=== PATIENT | male | born 1965 | race Caucasian/White ===

== ENCOUNTER 2023-03-10 09:49 | Outpatient (OUT) | payer MEDICARE, SELFPAY ==
--- NOTE | 2023-03-10 09:54 | CT_ITS ---
[address] [address] Patient Name: DORIS PARKER MRN: [id number] date: 1965 Sex: M Assigned Patient Location: CT Current Patient Location: LAB Accession/Order Number: [id number] Exam Date: 03/10/2023 10:10 Report Date: 03/11/2023 07:57 At the request of: RUBÉN ORDONEZ Procedure: CT chest high res EXAMINATION: CT chest high res HISTORY: Pulmonary Fibrosis J84.10 COMPARISON: CTA chest, abdomen, pelvis 10/02/2021 TECHNIQUE: Axial images were obtained at 10 mm intervals during inspiration and expiration in the supine and prone positions. No IV contrast given. Dose reduction techniques were achieved by using automated exposure control and/or adjustment of mA and/or kV according to patient size and/or use of iterative reconstruction technique. FINDINGS: LUNGS: Mild bilateral atelectasis which clears with change between prone and supine positioning. No appreciable air trapping, fibrosis, or significant chronic interstitial changes. No suspicious nodules. PLEURA: No mass, effusion, or pneumothorax. CASSIDY: No mass or adenopathy. MEDIASTINUM: No mass or adenopathy. CHEST WALL: No mass or axillary adenopathy LIMITED ABDOMEN: 6.5 cm benign-appearing right renal cysts, increased in size since prior study. Limited images of the upper abdomen. OTHER: Negative. IMPRESSION: 1. No significant chronic interstitial changes and fibrosis. 2. No acute infiltrates or suspicious nodules. Electronically authenticated by: MASON NESBITT Date: 03/11/2023 07:57
== END 2023-03-10 09:50 ==
LOC: CT 09:50
PROVIDERS: PCP Family Medicine; Visit Provider Internal Medicine
DX: J84.10 Pulmonary fibrosis, unspecified (principal)
CPT/HCPCS: 71250

== ENCOUNTER 2023-03-10 10:42 | Outpatient (OUT) | payer MEDICARE, OTHER, SELFPAY ==
[2023-05-22 15:34] LABS: INR 3.81; Prothrombin Time 37.4 sec (9.0-11.6)
== END 2023-03-10 10:43 ==
PROVIDERS: PCP Family Medicine; Visit Provider Family Medicine
DX: I82.91 Chronic embolism and thrombosis of unspecified vein (principal)
CPT/HCPCS: 36415; 85610

== ENCOUNTER 2023-03-12 15:25 | Outpatient (OUT) | payer MEDICARE, SELFPAY ==
--- NOTE | 2023-03-12 15:34 | XR_ITS ---
The [address] [address] Patient Name: DORIS PARKER MRN: [id number] date: 1965 Sex: M Assigned Patient Location: LAB Current Patient Location: LAB Accession/Order Number: [id number] Exam Date: 03/12/2023 15:40 Report Date: 03/12/2023 16:02 At the request of: DORIS WOODS Procedure: XR abdomen 1V EXAMINATION: XR abdomen 1V HISTORY: Kidney stones N20.0 COMPARISON: XR KUB 01/21/2023 FINDINGS: KIDNEY/URETER - RIGHT: No visible renal or ureteral calcifications. KIDNEY/URETER - LEFT: No visible renal or ureteral calcifications. PELVIS: No visible ureteral stones. Stable pelvic calcifications compatible with phleboliths. BOWEL: No abnormal dilation or deviation. BONES: No acute abnormality. OTHER: Filter within the IVC. IMPRESSION: 1. No appreciable urinary tract calculi. Electronically authenticated by: MASON NESBITT Date: 03/12/2023 16:02
== END 2023-03-12 15:26 ==
PROVIDERS: PCP Family Medicine; Visit Provider Urology
DX: N20.0 Calculus of kidney (principal)
CPT/HCPCS: 74018

== ENCOUNTER 2023-03-14 07:00 | Outpatient (REF) | payer MEDICARE, SELFPAY ==
[2023-03-14 11:55] LABS: Calcium 9.1 mg/dL (8.5-10.1); Carbon Dioxide 26.1 mmol/L (21.0-32.0); Chloride 106 mmol/L (98-107); Estimated GFR (African America >60 (>=60); Estimated GFR (Non-African Ame 52 (>=60); Potassium 4.9 mmol/L (3.5-5.1); Sodium 140 mmol/L (136-145)
[2023-03-14 14:56] LABS: Calcium Urine Random 15.2 mg/dL (5.1-21.0); Creatinine Urine Random 119.65 mg/dL (20.00-300.00); Sodium Urine Random 201 mmol/L (30-90)
[2023-03-14 14:58] LABS: Calcium 24 Hour Urine 239.4 mg/24hr (100.0-300.0); Sodium 24 Hour Urine 317 mmol/24h (40-220); Total Volume 24 Hour Urine 1575 mL/24hr
[2023-03-15 08:11] LABS: Magnesium, U 5.8 mg/dL (Not Estab.); Magnesium,Urine 24hr 91.4 mg/24 hr (12.0-293.0); Phosphorus, Urine 56.9 mg/dL (Not Estab.); Phosphorus,Urine 24h 896 mg/24 hr (390-1425); Uric Acid, Urine 58.2 mg/dL (Not Estab.); Uric Acid,Urine 24hr 916.7 mg/24 hr (197.2-1078.7)
[2023-03-15 14:11] LABS: PTH, Intact 26 pg/mL (15-65)
[2023-03-18 17:08] LABS: Citric Acid, U, 24hr 203 mg/24 hr (320-1240); Citric Acid, Urine 129 mg/L (Undefined)
[2023-03-19 17:07] LABS: Oxalates, Urine 11 mg/L (Undefined); Oxalates, Urine 24hr 17 mg/24 hr (7-44)
== END 2023-03-14 07:01 ==
LOC: LAB 07:00
PROVIDERS: PCP Family Medicine; Visit Provider Urology
DX: N20.0 Calculus of kidney (principal)
CPT/HCPCS: 36415; 82310; 82340; 82374; 82435; 82507; 82565; 82570; 83735; 83945; 83970; 84105; 84132; 84295; 84300; 84520; 84550; 84560

== ENCOUNTER 2023-05-22 14:41 | Outpatient (OUT) | payer MEDICARE, SELFPAY | END 2023-05-22 14:42 | disposition home or self-care (01) | LOC: LAB 14:44 | PROVIDERS: PCP Family Medicine; Visit Provider Family Medicine | DX: I82.91 Chronic embolism and thrombosis of unspecified vein (principal) | CPT/HCPCS: 36415; 85610 ==

== ENCOUNTER 2023-07-24 11:35 | Outpatient (OUT) | payer OTHER, SELFPAY ==
[2023-07-24 12:02] LABS: INR 2.05; Prothrombin Time 20.9 sec (9.0-11.6)
== END 2023-07-24 11:36 | disposition home or self-care (01) ==
PROVIDERS: PCP Family Medicine; Visit Provider Family Medicine
DX: I82.91 Chronic embolism and thrombosis of unspecified vein (principal)
CPT/HCPCS: 36415; 85610

== ENCOUNTER 2023-09-10 07:38 | Outpatient (OUT) | payer MEDICARE, SELFPAY | END 2023-09-10 07:39 | disposition home or self-care (01) | LOC: PST 07:38 | PROVIDERS: PCP Family Medicine; Visit Provider Surgery | DX: Z01.818 Encounter for other preprocedural examination (principal); K62.5 Hemorrhage of anus and rectum ==

== ENCOUNTER 2023-09-17 06:26 | Day surgery (SDC) | payer MEDICARE, SELFPAY ==
--- NOTE | 2023-09-17 | OP_ITS ---
OPERATION DATE: 09/17/2023 PREOPERATIVE DIAGNOSIS: Intermittent rectal bleeding. POSTOPERATIVE DIAGNOSIS: Prominent rectal veins and internal/external hemorrhoids. No active bleeding. PROCEDURE: Colonoscopy to cecum. SURGEON: Jamil Carrillo M.D. ANESTHESIA: Monitored anesthesia care. ESTIMATED BLOOD LOSS: Zero. INDICATIONS AND CONSENT: Patient is a 58-year-old male presents for intermittent rectal bleeding. He is chronically anticoagulated. Indications, risks, benefits, alternatives of proceeding with colonoscopy were explained extensively to the patient, including the risks of bleeding, colon perforation or anesthetic complications. All of his questions were answered. Informed consent was obtained. PROCEDURE: Patient brought to the operating room, placed in the left lateral decubitus position. Monitored anesthesia care was provided. Rectal exam was performed which revealed some small internal/external hemorrhoids. No masses or blood. The scope was inserted into the anal canal. Under direct visualization was advanced. With the aid of abdominal compression, it was advanced to the cecum where cecal markings were clearly identified. There was noted to be a good prep. Upon withdrawal of the scope, mucosal surfaces were carefully examined. There were no mass lesions or polyps. No inflammatory changes or ulcerations. No significant diverticulosis. Within the rectum, there were noted to be prominent rectal veins as well as some small internal/external hemorrhoids. No active bleeding or old blood. The scope was then withdrawn. Patient tolerated procedure well, was sent to recovery room in good condition. Follow up colonoscopy should be in 10 years for screening. CC: Delon Simmons M.D. STEFANIA
--- OUTSIDE RECORDS SUMMARY | 2023-09-17 06:29 | XMS_ITS | CCD ---
Author Name Unknown Address [address] [place] [address] Organization [facility] Care Team Providers Care Chief Steward/Stewardess Name Role Phone EFREM MATSON Admitting Unavailable EFREM MATSON Attending Unavailable NOE CABALLERO Primary Care Unavailable Noe Caballero Primary Care Physician [phone] DAGOBERTO CORMIER Admitting Unavailable CLINTON CORMIERAB Davey Attending Unavailable NOE CABALLERO Primary Care Unavailable NOE CABALLERO Referring Unavailable HOY ., DR LIU Admitting Unavailable HOY ., DR LIU Attending Unavailable HOY ., DR LIU Referring Unavailable HOY ., DR LIU Primary Care Unavailable HOY ., DR LIU Consulting Unavailable HOY ., DR LIU Admitting Unavailable HOY ., DR LIU Attending Unavailable HOY ., DR LIU Primary Care Unavailable HOY ., DR LIU Consulting Unavailable [place], DR EFREM Ventura Consulting Unavailable HOY ., DR LIU Admitting Unavailable HOY ., DR LIU Attending Unavailable HOY ., DR LIU Primary Care Unavailable HOY ., DR LIU Consulting Unavailable HOY ., DR LIU Admitting Unavailable HOY ., DR LIU Attending Unavailable HOY ., DR LIU Primary Care Unavailable HOY ., DR LIU Consulting Unavailable HOY ., DR LIU Admitting Unavailable HOY ., DR LIU Attending Unavailable HOY ., DR LIU Primary Care Unavailable HOY ., DR LIU Consulting Unavailable HOY ., DR LIU Admitting Unavailable HOY ., DR LIU Attending Unavailable HOY ., DR LIU Primary Care Unavailable HOY ., DR LIU Consulting Unavailable HOY ., DR LIU Admitting Unavailable HOY ., DR LIU Attending Unavailable HOY ., DR LIU Consulting Unavailable HOY ., DR LIU Primary Care Unavailable PERLITA, SHANIA Admitting Unavailable PERLITA, SHANIA Attending Unavailable HOY ., DR LIU Primary Care Unavailable PERLITA, SHANIA Consulting Unavailable ELIJAH, EDGAR Admitting Unavailable ELIJAH, EDGAR Attending Unavailable HOY ., DR LIU Primary Care Unavailable WEST, DR EFREM Ventura Consulting Unavailable ELIJAH, EDGAR Consulting Unavailable ELIJAH, EDGAR Admitting Unavailable ELIJAH, EDGAR Attending Unavailable HOY ., DR LIU Primary Care Unavailable WEST, DR EFREM Ventura Consulting Unavailable IRVING, WINCHA Consulting Unavailable ELIJAH, EDGAR Consulting Unavailable ELIJAH, EDGAR Admitting Unavailable ELIJAH, EDGAR Attending Unavailable HOY ., DR LIU Primary Care Unavailable ELIJAH, EDGAR Consulting Unavailable ELIJAH, EDGAR Admitting Unavailable ELIJAH, EDGAR Attending Unavailable HOY ., DR LIU Primary Care Unavailable [facility], DR MASON Braun Consulting Unavailable ELIJAH, EDGAR Consulting Unavailable HOY ., DR LIU Admitting Unavailable HOY ., DR LIU Attending Unavailable HOY ., DR LIU Primary Care Unavailable HOY ., DR LIU Consulting Unavailable HOY ., DR LIU Admmak Unavailable HOY ., DR LIU Attending Unavailable HOY ., DR LIU Primary Care Unavailable HOY ., DR LIU Admmak Unavailable HOY ., DR LIU Attending Unavailable HOY ., DR LIU Primary Care Unavailable HOY ., DR LIU Consulting Unavailable HOY ., DR LIU Admmak Unavailable HOY ., DR LIU Attending Unavailable HOY ., DR LIU Primary Care Unavailable HOY ., DR LIU Consulting Unavailable PERLITA, SHANIA Admitting Unavailable PERLITA, SHANIA Attending Unavailable HOY ., DR LIU Primary Care Unavailable PERLITA, SHANIA Consulting Unavailable HOY ., DR LIU Admitting Unavailable HOY ., DR LIU Attending Unavailable HOY ., DR LIU Primary Care Unavailable HOY ., DR LIU Admmak Unavailable HOY ., DR LIU Attending Unavailable HOY ., DR LIU Primary Care Unavailable HOY ., DR LIU Consulting Unavailable HOY ., DR LIU Admmak Unavailable HOY ., DR LIU Attending Unavailable HOY ., DR LIU Primary Care Unavailable HOY ., DR LIU Consulting Unavailable PERLITA, SHANIA Admitting Unavailable PERLITA, SHANIA Attending Unavailable HOY ., DR LIU Primary Care Unavailable PERLITA, SHANIA Consulting Unavailable ALFIE SLAUGHTER Admitting Unavailable ALFIE SLAUGHTER Attending Unavailable NOE CABALLERO Primary Care Unavailable SHANIA BHAT Attending Unavailable DAGOBERTO CORMIER Attending Unavailable Jamil DE LUNA Attending Unavailable Jamil DE LUNA Attending Unavailable Noe Caballero Referring Unavailable ALEJANDRO DANIELLE Attending Unavailab ALEJANDRO Funez Attending Unavailab ALEJANDRO Funez Attending Unavailab ALEJANDRO Funez Admitting Unavailab Noe Gamino Referring Unavailable Jamil DE LUNA Attending Unavailable Noe Caballero MD Primary Care Provider [phone] Noe Caballero MD Unavailable Allergies Allergy Classification Reported Allergen(s) Allergy Type Date of Onset Reaction(s) Facility (7 sources) Acetaminophen / HYDROcodone; Translations: [acetaminophen-hy drocodone] Drug Allergy Hallucinations (finding), Migraine (disorder) [facility] (11 sources) Penicillins; Translations: [penicillins] Drug allergy 4 Weal (disorder) [facility] (7 sources) Sulfonamides (Antibiotic); Translations: [sulfa drugs] Drug allergy Weal (disorder) [facility] (1 source) Acetaminophen / HYDROcodone Drug Allergy [facility] (2 sources) Sulfonamides (Antibiotic) Drug allergy (disorder) 5 [facility] (1 source) Penicillin; Translations: [penicillin] Drug Allergy [facility] Medications Current Medications Medication Drug Class(es) Dates Sig (Normalized) Sig (Original) acetaminophen 325 mg / oxyCODONE hydrochloride 5 mg oral tablet (2 sources) Opioid Agonist Start: 01-17-2022 take 1 tablet by mouth every six hours Percocet 5 mg-325 mg oral tablet 1 tab(s), Oral, q6hr Pain 8-10, 20 tab(s), Refill(s) 0, [facility] 178, cm, 01/11/22 13:03:00 EDT, Height/Length Dosing, 106, kg, 01/11/22 13:03:00 EDT, Weight Dosing Start Date: 01/17/22 Status: Ordered Albuterol (1 source) beta2-Adrenergic Agonist Start: 08-15-2023 take 2 puff(s) by inhalation every four hours Albuterol (Eqv-ProAir HFA) 2 puff(s), Inhalation, q4hr Shortness of breath or wheezing, Refill(s) 0 Start Date: 08/15/23 Status: Ordered amLODIPine 5 mg oral tablet (2 sources) Dihydropyridine Calcium Channel Apolinar Start: 07-03-2022 take 1 tablet by mouth once daily amLODIPine 5 mg Tab 5 mg = 1 tab(s), Oral, Daily, Refills(s) 0 Start Date: 07/03/22 Status: Ordered ascorbic acid 500 mg oral tablet (4 sources) Vitamin C Start: 08-29-2020 take 500 mg by mouth once daily Vitamin C 500 mg, Oral, Daily, Refills(s) 0, Prophylaxis Start Date: 08/29/20 Status: Ordered atorvastatin 20 mg oral tablet (2 sources) HMG-CoA Reductase Inhibitor Start: 02-26-2023 take 1 tablet by mouth once daily atorvastatin 20 mg Tab 20 mg = 1 tab(s), Oral, Daily, Refills(s) 0 Start Date: 02/26/23 Status: Ordered Start: 05-25-2019 take 1 tablet by geri th once daily atorvastatin 40 mg Tab 40 mg = 1 tab(s), Oral, Daily, High cholesterol Start Date: 05/25/19 Status: Ordered celecoxib 200 mg oral capsule (6 sources) Nonsteroidal Anti-inflammatory Drug Start: 01-11-2022 take 1 capsule by mouth once daily CeleBREX 200 mg Cap 200 mg = 1 cap(s), Oral, Daily, Other (see comment) Start Date: 01/11/22 Status: Ordered take 1 capsule by mouth twice da miriam celecoxib (CELEBREX) 200 mg capsule Take 200 mg by mouth 2 times daily. 0 Active Comment on above: Take 200 mg by mouth 2 times daily. ciprofloxacin 500 mg oral tablet (1 source) Quinolone Antimicrobial Start: 01-17-2022 End: 04-24-2022 take 1 tablet by mouth every twelve hours Cipro 500 mg Tab 500 mg = 1 tab(s), Oral, q12hr, X 3 day(s), # 6 tab(s), Refills(s) 0, Pharmacy: [facility] [address], 178, cm, 01/11/22 13:03:00 EDT, Height/Length Dosing, 106, kg, 01/11/22 13:03:00 EDT, Weight Dosing Start Date: 01/17/22 Stop Date: 01/20/22 Status: Ordered 1 ml enoxaparin sodium 100 mg/ml prefilled syringe (1 source) Low Molecular Weight Heparin Start: 09-13-2021 inject 100 mg by subcutaneous injection every twelve hours enoxaparin 100 mg/mL SubQ Terra 100 mg, SubCutaneous, q12hr, start when stop coumadin for surgery, Refills(s) 0 Start Date: 09/13/21 Status: Ordered enoxaparin 100 mg/mL SubQ Terra (3 sources) Start: 09-13-2021 inject 100 mg by subcutaneous injection every twelve hours enoxaparin 100 mg/mL SubQ Terra 100 mg, SubCutaneous, q12hr, start when stop coumadin for surgery, Refills(s) 0 Start Date: 09/13/21 Status: Ordered HYDROcodone (1 source) Opioid Agonist Start: 09-13-2021 hydrocodone Oral, q12hr, PRN Breakthrough Pain, Refills(s) 0 Start Date: 09/13/21 Status: Ordered lisinopril 30 mg oral tablet (7 sources) Angiotensin Converting Enzyme Inhibitor Start: 03-12-2023 take 1 tablet by mouth once daily lisinopril 30 mg Tab 30 mg = 1 tab(s), Oral, Daily, Refills(s) 0 Start Date: 03/12/23 Status: Ordered Start: 09-13-2021 take 1 tablet by geri th once daily lisinopril 30 mg Tab 30 mg = 1 tab(s), Oral, Daily, Refills(s) 0, High blood pressure Start Date: 09/13/21 Status: Ordered Comment on above: Take 30 mg by mouth daily. metFORMIN hydrochloride 500 mg oral tablet (6 sources) Biguanide Start: 05-25-2019 take 1 tablet by mouth once daily metformin 500 mg Tab 500 mg = 1 tab(s), Oral, Daily, Blood glucose Start Date: 05/25/19 Status: Ordered take 1 tablet by geri th twice daily at mealtime metFORMIN (GLUCOPHAGE) 500 mg tablet Alexandr e 500 mg by mouth 2 times daily with meals. 0 Active Comment on above: Take 500 mg by mouth 2 times daily with meals. metoprolol tartrate 100 mg oral tablet (7 sources) beta-Adrenergic Apolinar Start: 02-26-2023 take 1 tablet by mouth twice daily metoprolol tartrate 100 mg Tab 100 mg = 1 tab(s), Oral, BID, Refills(s) 0 Start Date: 02/26/23 Status: Ordered Start: 09-13-2021 take 1 tablet by geri th twice daily metoprolol 50 mg ER Tab 50 mg = 1 tab(s), Oral, BID, High blood pressure Start Date: 09/13/21 Status: Ordered take 1 tablet by geri th once daily metoprolol succinate ER (TOPROL XL) 50 mg 24 hr tablet Take 50 mg by mouth daily. 0 Active Comment on above: Take 50 mg by mouth daily. multivitamin with iron (1 source) Start: 08-15-2023 take 1 tablet by mouth once daily multivitamin with iron 1 tab(s), Oral, Daily, Refill(s) 0 Start Date: 08/15/23 Status: Ordered omeprazole 20 mg delayed release oral capsule (4 sources) Proton Pump Inhibitor Start: 09-13-2021 omeprazole 20 mg Cap-DR 40 mg = 2 cap(s), Oral, Daily, Control of stomach acid Start Date: 09/13/21 Status: Ordered Comment on above: Take 20 mg by mouth daily. omeprazole 20 mg Cap-DR (3 sources) Start: 09-13-2021 omeprazole 20 mg Cap-DR 20 mg = 1 cap(s), Oral, Daily, Control of stomach acid Start Date: 09/13/21 Status: Ordered Start: 09-13-2021 omeprazole 20 mg Cap-DR 20 mg = 1 cap(s), Oral, BID, Control of stomach acid Start Date: 09/13/21 Status: Ordered rosuvastatin calcium 40 mg oral tablet (5 sources) HMG-CoA Reductase Inhibitor Start: 08-15-2023 take 1 tablet by mouth once daily at bedtime rosuvastatin 40 mg Tab 40 mg = 1 tab(s), Oral, Once a day (at bedtime), Refills(s) 0 Start Date: 08/15/23 Status: Ordered Start: 01-11-2022 take 1 tablet by geri th once daily rosuvastatin 10 mg Tab 10 mg = 1 tab(s), Oral, Daily, High cholesterol Start Date: 01/11/22 Status: Ordered Comment on above: Take 10 mg by mouth daily. SUMAtriptan 25 mg oral tablet (6 sources) Serotonin-1b and Serotonin-1d Receptor Agonist Start: 08-15-2023 take 1 tablet by mouth once Imitrex 25 mg Tab 25 mg = 1 tab(s), Oral, Once, Refills(s) 0 Start Date: 08/15/23 Status: Ordered Start: 08-29-2020 take 1 tablet by geri th every two hours as needed SUMAtriptan 100 mg Tab 100 mg = 1 tab(s), Oral, Once, PRN as needed for migraine headache, TAKE 1 TABLET BY MOUTH AT ONSET OF HEADACHE - MAY REPEAT IN 2 HOURS IF NEEDED, Migraine headache Start Date: 08/29/20 Status: Ordered take 1 tablet by geri th every two hours as needed SUMAtriptan (IMITREX) 25 mg tablet Take 25 mg by mouth every 2 hours as needed for Migraine. 0 Active Comment on above: Take 25 mg by mouth every 2 hours as needed for Migraine. Vitamin D3 5000 intl units oral capsule (5 sources) Start: 01-11-2022 take 1 capsule by mouth once daily at mealtime Vitamin D3 5000 intl units oral capsule 125 mcg = 1 cap(s), Oral, Daily, with food, Prophylaxis Start Date: 01/11/22 Status: Ordered warfarin sodium 4 mg oral tablet (12 sources) Vitamin K Antagonist Start: 01-11-2022 Coumadin 4 mg Tab 4 mg = 1 tab(s), Oral, As Directed, Refills(s) 0, Blood Thinner Start Date: 01/11/22 Status: Ordered Start: 12-25-2021 warfarin 4 mg Tab 4 mg = 1 tab(s), Oral Start Date: 12/25/21 Status: Ordered Start: 10-30-2021 warfarin 5 mg Tab 5 mg = 1 tab(s), Oral, Friday, Blood Thinner Start Date: 12/25/21 Status: Ordered Start: 05-25-2019 take 1 tablet by mouth once da miriam Coumadin 3 mg Tab 3 mg = 1 tab(s), Oral, Daily, Blood Thinner Start Date: 05/25/19 Status: Ordered Comment on above: Take 1 tab p.o. adela y Zinc (4 sources) Start: 08-29-2020 take 100 mg by mouth once daily Zinc 100 mg, Oral, Daily, Refills(s) 0, Prophylaxis Start Date: 08/29/20 Status: Ordered Completed/Discontinued Medications Medication Drug Class(es) Dates Sig (Normalized) Sig (Original) 24 hr venlafaxine 75 mg extended release oral capsule (7 sources) Serotonin and Norepinephrine Reuptake Inhibitor Start: 08-29-2020 take 1 capsule by mouth once daily venlafaxine 75 mg Cap-ER 75 mg = 1 cap(s), Oral, Daily, take 1 capsule by mouth once daily, Anxiety Start Date: 08/29/20 Status: Ordered Start: 08-29-2020 take 1 capsule by mo [facility] once daily venlafaxine 75 mg Cap-ER 75 mg = 1 cap(s), Oral, Daily, take 1 capsule by mouth once daily, Anxiety Start Date: 08/29/20 Status: [facility] ven[facility]ine (EFFEXOR) 75 mg tablet Take 75 mg by mouth 2 times daily. 0 Active Comment on above: Take 75 mg by mouth 2 times daily. Vitamin D 1000 intl units Tab (1 source) Start: 05-25-2019 take 1 tablet by mouth once daily Vitamin D 1000 intl units Tab 1,000 International_Unit = 1 tab(s), Oral, Daily, Prophylaxis Start Date: 05/25/19 Status: Ordered Problems Active Problems Problem Classification Problem Date Documented Da te Episodic/Chronic Abdominal pain (6 sources) Flank pain 06-26-2021 Episodic Anxiety disorders (12 sources) Anxiety; Translations: [Anxiety disorder] 05-25-2019 Chronic Calculus of urinary tract (20 sources) Kidney stone; Translations: [Calculus of kidney] Onset: 2 Episodic Coagulation and hemorrhagic disorders (5 sources) Antiphospholipid syndrome; Translations: [Antiphospholipid syndrome] Onset: 2 02-26-2023 Chronic Coronary atherosclerosis and other heart disease (16 sources) Coronary arteriosclerosis; Translations: [Atherosclerotic heart disease of enterprise coronary artery without angina pectoris] Onset: 2 07-19-2019 Chronic Diabetes mellitus with complications (3 sources) Type 2 diabetes mellitus with other specified complication; Translations: [TYPE 2 DM W/OTHER SPEC COMPLICATION] Onset: 3 Chronic Diabetes mellitus without complication (6 sources) Diabetes mellitus 05-25-2019 Chronic Disorders of lipid metabolism (13 sources) Hypercholesterolemia; Translations: [Hyperlipidemia, unspecified] Onset: 3 05-25-2019 Chronic Esophageal disorders (7 sources) Gastroesophageal reflux disease 07-22-2019 Chronic Essential hypertension (15 sources) Hypertensive disorder; Translations: [Essential (primary) hypertension] Onset: 2 07-22-2019 Chronic Gastrointestinal hemorrhage (2 sources) Hemorrhage of rectum and anus; Translations: [Hemorrhage of anus and rectum] Onset: 3 Episodic Genitourinary symptoms and ill-defined conditions (13 sources) Osiel hematuria; Translations: [Microscopic hematuria] Onset: 2 07-19-2019 Episodic Headache; including migraine (2 sources) Migraine 02-26-2023 Chronic Hyperplasia of prostate (18 sources) Benign prostatic hypertrophy without outflow obstruction; Translations: [Benign prostatic hyperplasia without lower urinary tract symptoms] Onset: 2 Chronic Nutritional deficiencies (1 source) Vitamin D deficiency 08-15-2023 Chronic Other aftercare (2 sources) Long-term current use of anticoagulant; Translations: [assisted (current) use of 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] Onset: 2 Episodic Other diseases of kidney and ureters (1 source) Urinary tract obstruction; Translations: [Hydronephrosis with renal and ureteral calculous obstruction] Onset: 2 Episodic Other diseases of kidney and ureters (2 sources) Acquired renal cyst without neoplastic change; Translations: [Cyst of kidney, acquired] Onset: 2 Episodic Other diseases of kidney and ureters (6 sources) Cyst of kidney 08-29-2020 Episodic Other diseases of kidney and ureters (12 sources) Hydronephrosis 06-26-2021 Episodic Other diseases of kidney and ureters (5 sources) Hydronephrosis with renal and ureteral calculous obstruction; Translations: [HYDRONPHROS RENL AND URETRL CALCUL OBST] Onset: 2 Episodic Other gastrointestinal disorders (1 source) Constipation 02-26-2023 Episodic Other gastrointestinal disorders (1 source) Altered bowel function 08-15-2023 Episodic Other nutritional; endocrine; and metabolic disorders (2 sources) Obese class I; Translations: [Body mass index (BMI) 33.0-33.9, adult] Onset: 2 Chronic Other nutritional; endocrine; and metabolic disorders (3 sources) Body mass index 30+ - obesity 07-03-2022 Chronic Other nutritional; endocrine; and metabolic disorders (3 sources) Obesity, unspecified; Translations: [OBESITY UNSPECIFIED] Onset: 3 Chronic Other nutritional; endocrine; and metabolic disorders (2 sources) Obesity 02-26-2023 Chronic Other screening for suspected conditions (not mental disorders or infectious disease) (10 sources) Abnormal quantity of physiologic substance; Translations: [Abnormal result of other cardiovascular function study] Onset: 2 09-13-2021 Episodic Phlebitis; thrombophlebitis and thromboembolism (4 sources) Chronic embolism and thrombosis of unspecified vein; Translations: [CHRON EMBOLISM THROMBOSIS UNS VEIN] Onset: 3 Chronic Phlebitis; thrombophlebitis and thromboembolism (8 sources) Deep venous thrombosis; Translations: [H/O: embolism] 09-13-2021 Episodic Rheumatoid arthritis and related disease (1 source) Rheumatoid arthritis 08-15-2023 Chronic Screening and history of mental health and substance abuse codes (1 source) Ex-tobacco user 08-15-2023 Episodic Spondylosis; intervertebral disc disorders; other back problems (2 sources) Radiculopathy, lumbar region; Translations: [Lumbar radiculopathy] Onset: 9 08-15-2023 Episodic Thyroid disorders (1 source) Hypothyroidism 08-15-2023 Chronic Unclassified (6 sources) Drug therapy finding 07-19-2019 Unclassified (1 source) CONTACT W/AND (SUSP) EXPOS COVID-19; Translations: [CONTACT W/AND (SUSP) EXPOS COVID-19] Onset: 2 Past or Other Problems Problem Classification Problem Date Documented Da te Episodic/Chronic Nonspecific chest pain (4 sources) Chest pain, unspecified; Translations: [CHEST PAIN UNSPECIFIED] Onset: 03-07-2022 Episodic Other aftercare (1 source) Encounter for therapeutic drug level monitoring; Translations: [ENC THERAPEUTC DRUG LEVL MONITORING] Onset: 09-24-2022 Episodic Other aftercare (1 source) assisted (current) use of 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; Translations: [[facility] CURRNT USE ANTICOAGULANTS] Onset: 09-24-2022 Episodic Other lower respiratory disease (3 sources) Other forms of dyspnea; Translations: [OTHER FORMS OF DYSPNEA] Onset: 01-31-2023 Episodic Results Test Name Value Interpretation Reference Range Facil ity Reminderson 09-12-2023 Reminders - From: Aisha Zelaya To: EU - Recalls Elijah; Sent: 02/19/2023 15:30:57 EDT Show up: 07/13/2023 15:30:00 EDT Subject: Ambulatory Reminder Due Date/Time: 08/13/2023 15:30:00 EST Reminder/Recall Call and schedule patient for a MAKENNA prior to 08/26/23 follow up appointment. From: EDGAR DANIELLE PA-C (EU - Recalls Elijah) To: EU - Clinical; Sent: 09/10/2023 17:02:27 EST ! Show up: 09/10/2023 17:02:00 EST Due Date/Time: 09/11/2023 17:02:00 EST Appt 09/30/23 [facility] states pt is scheduled 09/19/23 @ 0900. Normal [facility] Physician Referralon 023 Physician Referral [id number] [facility] Consent for Procedure/Surger yon 09-01-2023 Consent for Procedure/Surgery [id number] [facility] Ambulatory Visit Summaryon 1 10-30-2022 Ambulatory Visit Summary DORIS LUIS :1965 Visit Date:08/29/2023 Ambulatory Visit Instructions Your Care Team Attending Physician - ANNAMARIE ISRAEL, Jamil Braun Primary Care Physician - Noe Caballero MD Referring Physician - Noe Caballero MD This Is Your Medications List Contact prescribing physician if questions or concerns albuterol (Albuterol (Eqv-ProAir HFA)) celecoxib (CeleBREX 200 mg Cap) cholecalciferol (Vitamin D3 5000 intl units oral capsule) lisinopril (lisinopril 30 mg Tab) metoprolol (metoprolol tartrate 100 mg Tab) multivitamin with iron omeprazole (omeprazole 20 mg Cap-DR) rosuvastatin (rosuvastatin 40 mg Tab) sumatriptan (Imitrex 25 mg Tab) venlafaxine (venlafaxine 75 mg Cap-ER) warfarin (Coumadin 4 mg Tab) Procedures Performed Fluoroscopy guided ESWL (extracorporeal shockwave lithotripsy) of calculus of left ureter (01/17/2022), Cystoscopy (09/20/2021), Cystoscopy (07/10/2021), ESWL of kidney (01/08/2021), ESWL of kidney (11/06/2020), Cystoscopic removal of ureteric stent (08/09/2019), Cystoscopic insertion of ureteric stent (07/22/2019), Placement of stent in cardiac conduit (07/12/2019), Colonoscopy (11/14/2014), Cystoscopy and retrograde pyelography (07/06/2014), Hemorrhoidectomy (2009), Cardiac catheterization, Cataract extraction, Excision of lipoma, Tenmile filter, History of lumbar spine surgery, Meniscal repair, Thrombectomy, Tonsillectomy. Discharge Vitals Heart Rate (Peripheral) 72 Respiratory Rate 16 Blood Pressure 126/78 Height 177.8 cm Height 70 in Weight 106.8 kg Weight 234.96 lb BMI 33.78 What to do next Scheduled Follow-Up Appointments Friday 2:30 PM EST With: EDGAR DANIELLE PA-C Where: [facility] Physician Referralon 023 Physician Referral [id number] [facility] Office Visiton 08-14-2023 Follow-up visit [id number] Jonathan Luis 1965 M Date Provider Department Center 08/14/2023 [facility] Margie English Family History Problem Relation Age of Onset Coronary artery disease Mother Coronary artery disease Father Family Status - Relation Status Age at Mother Father Level of Service:92515 SC OFFICE/OUTPATIENT ESTABLISHED LOW MDM 20-29 MIN Normal [facility] Physician Referralon 023 Physician Referral [id number]#1.00TIFF Normal [facility] Physician Referralon 023 Physician Referral [id number]#1.00TIFF [facility] Lab Reportson 04-09-2023 Lab Reports [id number] D:127 [facility] Lab Reportson 03-21-2023 Lab Reports [id number]#1.00C D:127 Normal [facility] Lab Reports [id number]#1.00CD :127 Normal [facility] RAD - MISCon 03-21-2023 RAD - MISC [id number]#1.00CD :127 [facility] Lab Reportson 03-18-2023 Lab Reports [id number] D:127 Normal [facility] Lab Reports [id number]#1.00C D:127 [facility] Ambulatory Visit Summaryon 0 03-12-2023 Ambulatory Visit Summary DORIS LUIS :1965 Visit Date:03/12/2023 Ambulatory Visit Instructions Your Care Team Attending Physician - ANNAMARIE ISRAEL, Jamil Braun Primary Care Physician - Noe Caballero MD This Is Your Medications List amlodipine (amLODIPine 5 mg Tab) atorvastatin (atorvastatin 20 mg Tab) celecoxib (CeleBREX 200 mg Cap) cholecalciferol (Vitamin D3 5000 intl units oral capsule) lisinopril (lisinopril 30 mg Tab) metformin (metformin 500 mg Tab) metoprolol (metoprolol tartrate 100 mg Tab) omeprazole (omeprazole 20 mg Cap-DR) venlafaxine (venlafaxine 75 mg Cap-ER) warfarin (Coumadin 4 mg Tab) Procedures Performed Fluoroscopy guided ESWL (extracorporeal shockwave lithotripsy) of calculus of left ureter (01/17/2022), Cystoscopy (09/20/2021), Cystoscopy (07/10/2021), ESWL of kidney (01/08/2021), ESWL of kidney (11/06/2020), Cystoscopic removal of ureteric stent (08/09/2019), Cystoscopic insertion of ureteric stent (07/22/2019), Placement of stent in cardiac conduit (07/12/2019), Colonoscopy (11/14/2014), Cystoscopy and retrograde pyelography (07/06/2014), Hemorrhoidectomy (2009), Excision of lipoma, Angela filter, History of lumbar spine surgery, Meniscal repair, Tonsillectomy. Discharge Vitals Heart Rate (Peripheral) 72 Respiratory Rate 16 Blood Pressure 126/78 Height 177.8 cm Height 70 in Weight 105 kg Weight 231 lb BMI 33.21 What to do next Scheduled Follow-Up Appointments Friday 10:00 AM EST With: ELIJAH ALLEN, EDGAR Paniagua Where: [facility] Historical Records Officeon 03-10-2023 Historical Records Office [id number]:127 [facility] Coding Summaryon 02-28-2023 Coding Summary HTMLBase 64 [id number] [file] c2U (more content not included)... Normal [facility] Calculus Analysison 02-27-20 23 Color (Stone) [place] Invalid Interpretation Code [facility] Comment on above: Performed By: #### 1 [id number] ####[facility] [address] [facility] [place] [address] Composition Comment Invalid Interpretation Code [facility] Comment on above: Result Comment: Perc entage (Represents the % composition) Performed By: #### 1 [id number] ####[facility] [address] [facility] [place] [address] Disclaimer: Comment Invalid Interpretation Code [facility] Comment on above: Result Comment: This test was developed and its performance characteristics determined by [employer]. It has not been cleared or approved by the Food and Drug Administration. Performed at: [facility] Stone Analysis [address] [place] [address] [address] [place], [place] [id number] PhD Sahra Helton Performed By: #### 1 [id number] ####[facility] [address] [facility] [place] [address] Laboratory comment Lazaro (Report) Comment Invalid Interpretation Code [facility] Comment on above: Result Comment: Trav nguyen questions regarding Calculi Analysis contact [employer] at: [phone]. Performed By: #### 1 [id number] ####[facility] [address] [place] [address] Please Note: Comment Invalid Interpretation Code [facility] Comment on above: Result Comment: Calc cheikh report will follow via computer, mail or tree warden delivery. Performed By: #### 1 [id number] ####[facility] [address] [facility] [place] [address] Size (Stone) [Entitic vol] 3x5 Invalid Interpretati on Code [facility] Comment on above: Result Comment: Sing le piece received. Performed By: #### 1 [id number] ####[facility] [address] [place] [address] Specimen source subject Nom Comment Invalid Interpretation Code [facility] Comment on above: Result Comment: Not provided Performed By: #### 1 [id number] ####[facility] [address] [place] [address] Stone Photo Comment Invalid Interpretation Code [facility] Comment on above: Result Comment: Phot ograph will follow under a separate cover Performed By: #### 1 [id number] ####[facility] [address] [place] [address] Urate (Stone) [Mass fraction] 100 % Invalid Interpretation Code [facility] Comment on above: Performed By: #### 1 [id number] ####[facility] [address] [place] [address] Weight (Stone) 35 mg Invalid Interpretation Code [facility] Comment on above: Performed By: #### 1 [id number] ####[facility] [address] [facility] [place] [address] ED Clinical Summaryon 2022 ED Clinical Summary [facility] [address] [place], [place] [id number] Clinical Summary PERSON INFORMATION Name: DORIS LUIS Age: 57 Years Sex: MALE : 1965 MRN: Acct#: Visit Reason: Skin problem; FISH HOOK LT THIGH Arrival: 02/26/2023 14:18:24 Discharge: 02/26/2023 15:11:00 LOS: 000 00:53 Check In: 02/26/2023 14:18:24 Checkout: 02/26/2023 15:11:00 Address: [address] [place] [id number] PCP: NOE CABALLERO PROVIDER INFORMATION Provider Role Assigned Unassigned ALFIE SLAUGHTER ED PA 02/26/2023 14:20:09 Ivan Pringle FIBERGLASS LAMINATOR Nurse 02/26/2023 14:20:24 Asya Luther FIBERGLASS LAMINATOR Nurse 02/26/2023 14:30:49 VITALS INFORMATION Vital Sign Triage Latest Temperature Tympanic Temperature Temporal Artery Pulse Rate O2 Sat 94 % 94 % Respiratory Rate Blood Pressure /70 mmHg /70 mmHg MEDICAL INFORMATION Medications Given: Medication Dose Route tetanus/diphth/pertuss (Tdap) adult/adol 0.5 mL IM bacitracin topical 500 unit(s) TOP Allergy Information: penicillin PHYSICIAN DOCUMENTATION Patient: DORIS LUIS Age: 57 years Sex: MALE : 1965 Associated Diagnoses: Fish hook injury of left lower leg Author: ALFIE SLAUGHTER Subjective 57-year-old male presenting to urgent care with complaint of fishhook in his left lower thigh. Patient indicates that he was out fishing leaned against the fish pole and caught in his thigh. States that this is just under the skin but he was unable to successfully remove this himself. He states last tetanus shot was over 10 years ago. Denies any other issues at this time. Health Status Allergies: No active allergies have been recorded. Objective CONST: -Well-developed well-nourished. -Acute distress: No -Vitals: reviewed. SKIN: -Gross abnormalities: [place] appreciated in the left medial lower thigh just above the knee NECK: -Supple (oxdr-rf-yfwoq): non-tender. CARD: -Rate and rhythm: Regular RESP: -Respiratory effort and chest excursion with respirations: Normal -Breath sounds equal bilaterally: Clear -Wheezes: No -Rales: No BACK: -Signs of pain with movement: No EXT: Gross appearance and use of all four extremities: Unremarkable NEURO: -Patient: alert -Gross CN or Focal Neuro deficits: No -Oriented to: person, place and time. -Appearance and judgment: appropriate. Results Review Area of the fishhook was cleaned with iodine swabs, and the area was anesthetized using 2 mL of 1% lidocaine with epinephrine. This area was then again copiously cleaned with Betasept and normal saline. A 16-gauge needle was used to cover the rubia and the fishhook was backed out slowly. Patient tolerated procedure well. Area was then cleaned with Betasept and normal saline, bacitracin and bandage placed over this area patient educated on care of this area signs of infection when to return. Impression and Plan Assessment and Plan: Diagnosis: Fish hook injury of left lower leg ([id number] S89.92XA). Orders Orders Patient Care: Wound Care Routine (Order): 02/26/2023 14:48 EDT Pharmacy: bacitracin topical (Order): 1 michael, TOP, Once tetanus/diphth/pertuss (Tdap) adult/adol (Order): 0.5 mL, IM, Once. . Patient request removed by me in the urgent care. Patient was educated on care of area signs of infection when to return for signs of infection given a tetanus shot in the urgent care. Told to return for any DISCHARGE INFORMATION: Discharge Disposition: Home Discharge Location: Home PATIENT EDUCATION INFORMATION Instructions: Puncture Wound; Wound Care, Adult Follow-Up: With: Address: When: NOE CABALLERO [address] [place] [address], [address] [place], [place] [id number] Business (1) Within 3 to 5 days DIAGNOSIS: Fish hook injury of left lower leg Patient Understands: Yes - Patient/family/caregiver verbalizes understanding of instructions given Comment: [facility] ED Note - Physicianon 2022 ED Note - Physician Patient: DORIS LUIS MRN: [id number] Age: 57 years Sex: MALE : 1965 Associated Diagnoses: Fish hook injury of left lower leg Author: ALFIE SLAUGHTER Subjective 57-year-old male presenting to urgent care with complaint of fishhook in his left lower thigh. Patient indicates that he was out fishing leaned against the fish pole and caught in his thigh. States that this is just under the skin but he was unable to successfully remove this himself. He states last tetanus shot was over 10 years ago. Denies any other issues at this time. Health Status Allergies: No active allergies have been recorded. Objective CONST: -Well-developed well-nourished. -Acute distress: No -Vitals: reviewed. SKIN: -Gross abnormalities: [place] appreciated in the left medial lower thigh just above the knee NECK: -Supple (bbvt-ab-ilhtl): non-tender. CARD: -Rate and rhythm: Regular RESP: -Respiratory effort and chest excursion with respirations: Normal -Breath sounds equal bilaterally: Clear -Wheezes: No -Rales: No BACK: -Signs of pain with movement: No EXT: Gross appearance and use of all four extremities: Unremarkable NEURO: -Patient: alert -Gross CN or Focal Neuro deficits: No -Oriented to: person, place and time. -Appearance and judgment: appropriate. Results Review Area of the fishhook was cleaned with iodine swabs, and the area was anesthetized using 2 mL of 1% lidocaine with epinephrine. This area was then again copiously cleaned with Betasept and normal saline. A 16-gauge needle was used to cover the rubia and the fishhook was backed out slowly. Patient tolerated procedure well. Area was then cleaned with Betasept and normal saline, bacitracin and bandage placed over this area patient educated on care of this area signs of infection when to return. Impression and Plan Assessment and Plan: Diagnosis: Fish hook injury of left lower leg ([id number] S89.92XA). Orders Orders Patient Care: Wound Care Routine (Order): 02/26/2023 14:48 EDT Pharmacy: bacitracin topical (Order): 1 michael, TOP, Once tetanus/diphth/pertuss (Tdap) adult/adol (Order): 0.5 mL, IM, Once. . Patient request removed by me in the urgent care. Patient was educated on care of area signs of infection when to return for signs of infection given a tetanus shot in the urgent care. Told to return for any [Electronically Signed on: 02/26/2023 14:57 EDT] ALFIE SLAUGHTER [Verified on: 02/26/2023 14:57 EDT] ALFIE SLAUGHTER Normal [facility] ED Patient Summaryon 023 ED Patient Summary [facility] ? Urgent Care [address] [place] [id number] PATIENT DISCHARGE INSTRUCTIONS Patient Information Name: DORIS LUIS Age: 57 Years Date of : 1965 Reason For Visit: Skin problem; FISH HOOK LT THIGH Arrival Time: 02/26/2023 14:18:24 Primary Care Physician: NOE CABALLERO Attending Physician: ALFIE SLAUGHTER Comment: Patient Education With: Address: When: NOE CABALLERO [address] [place] [address], [address] [place] [id number] Business (1) Within 3 to 5 days Puncture Wound A puncture wound is an injury that is caused by a sharp, thin object that goes through (penetrates) your skin. Usually, a puncture wound does not leave a large opening in your skin, so it may not bleed a lot. However, when you get a puncture wound, dirt or other materials (foreign bodies) can be forced into your wound and can break off inside. This increases the chance of infection, such as tetanus. There are many sharp, pointed objects that can cause puncture wounds, including teeth, nails, splinters of glass, fishhooks, and needles. Treatment may include washing out the wound with a germ-free (sterile) salt-water solution, having the wound opened surgically to remove a foreign object, closing the wound with stitches (sutures), and covering the wound with antibiotic ointment and a bandage (dressing). Depending on what caused the injury, you may also need a tetanus shot or a rabies shot. Follow these instructions at home: Medicines ? Take or apply ymfd-oms-fealkvz and prescription medicines only as told by your health care provider. ? If you were prescribed an antibiotic medicine, take or apply it as told by your health care provider. Do not stop using the antibiotic even if your condition improves. Bathing ? Keep the dressing dry as told by your health care provider. ? Do not take baths, swim, or use a hot tub until your health care provider approves. Ask your health care provider if you may take showers. You may only be allowed to take sponge baths. Wound care ? There are many ways to close and cover a wound. For example, a wound can be closed with sutures, skin glue, or adhesive strips. Follow instructions from your health care provider about how to take care of your wound. Make sure you: ? Wash your hands with soap and water before and after you change your dressing. If soap and water are not available, use hand charging plug placer. ? Change your dressing as told by your health care provider. ? Leave sutures, skin glue, or adhesive strips in place. These skin closures may need to stay in place for 2 weeks or longer. If adhesive strip edges start to loosen and curl up, you may trim the loose edges. Do not remove adhesive strips completely unless your health care provider tells you to do that. ? Clean the wound as told by your health care provider. ? Do not scratch or pick at the wound. ? Check your wound every day for signs of infection. Check for: ? Redness, swelling, or pain. ? Fluid or blood. ? Warmth. ? Pus or a bad smell. General instructions ? Raise (elevate) the injured area above the level of your heart while you are sitting or lying down. ? If your puncture wound is in your foot, ask your health care provider if you need to avoid putting weight on your foot and for how long. Do not use the injured limb to support your body weight until your health care provider says that you can. Use crutches as told by your health care provider. ? Keep all follow-up visits as told by your health care provider. This is important. Contact a health care provider if: ? You received a tetanus shot and you have swelling, severe pain, redness, or bleeding at the injection site. ? You have a fever. ? Your sutures come out. ? You notice a bad smell coming from your wound or your dressing. ? You notice something coming out of your wound, such as wood or glass. ? Your pain is not controlled with medicine. ? You have increased redness, swelling, or pain at the site of your wound. ? You have fluid, blood, or pus coming from your wound. ? You notice a change in the color of your skin near your wound. ? You need to change the dressing frequently due to fluid, blood, or pus draining from your wound. ? You develop a new rash. ? You develop numbness around your wound. ? You have warmth around your wound. Get help right away if: ? You develop severe swelling around your wound. ? Your pain suddenly increases and is severe. ? You develop painful skin lumps. ? You have a red streak going away from your wound. ? The wound is on your hand or foot and you: ? Cannot properly move a finger or toe. ? Notice that your fingers or toes look pale or bluish. Summary ? A puncture wound is an injury that is caused by a sharp, thin object that goes through (penetrates) your skin. ? Treatment may include washing o (more content not included)... Normal [facility] [place] 023 Urgent Care Record [facility] ? Urgent Care [address] [place] [id number] PATIENT DISCHARGE INSTRUCTIONS Patient Information Name: DORIS LUIS Age: 57 Years Date of : 1965 Reason For Visit: Skin problem; FISH HOOK LT THIGH Arrival Time: 02/26/2023 14:18:24 Primary Care Physician: NOE CABALLERO Attending Physician: ALFIE SLAUGHTER Comment: Visit Diagnosis: Diagnoses This Visit Fish hook injury of left lower leg (S89.92XA) Skin problem ([id number]) If you received any narcotics, sedation, or any other medication that causes drowsiness for the next 24 hours, unless otherwise directed: ? Do not drive a car. ? Do not operate machinery such as power tools, lawn mowers, drills, sewing machines, or stoves ? Avoid alcoholic beverages and drugs for allergies, nerves, or sleep ? Do not make important personal or business decisions or sign any legal documents With: Address: When: NOE CABALLERO [address] [place] [address] [place] [address] Business (1) Within 3 to 5 days Medication Information: The exam and treatment you received today in the [facility] were for an urgent problem and are not intended as complete care. It is important for you to follow up with a doctor, nurse practitioner, or physician?s volunteer services assistant for ongoing care. If your symptoms become worse or you do not improve as expected and you are unable to reach your usual health care provider, you should return to the Emergency Department, we are available 24 hours a day. For those patients who have received Radiology results, the interpretation of your X-ray as given to you by our Urgent Care physician is only a preliminary report. The Radiologist will review your films and if there is a change in the diagnosis you will be notified by phone. Please make sure you have provided a working phone number so we can reach you if necessary. In the event that you had a lab culture while you were a patient in the Urgent Care, you will be notified by phone if there is a need to change your antibiotic. Please make sure you have provided a working phone number so we can reach you if necessary. [facility] has provided you with a complete list of medications post discharge. Please inform your sewing machine assembler/provider of your visit and for further instruction on these medications. Any specific questions regarding your chronic medications and dosages should be discussed with your primary care physician(s) and/or pharmacist. Additional medications on your home medication list not specifically addressed. Please contact the ordering physician if you have questions about these medications. albuterol (Albuterol (Eqv-ProAir HFA) 90 mcg/inh inhalation aerosol) inhale 2 puffs by mouth every 4 hours if needed for shortness of breath. amLODIPine (amLODIPine 5 mg oral tablet) take 1 tablet by mouth once daily. celecoxib (celecoxib 200 mg oral capsule) take 1 capsule by mouth twice a day. lisinopril (lisinopril 30 mg oral tablet) take 1 tablet by mouth every morning. metoprolol (Metoprolol Tartrate 50 mg oral tablet) take 1 tablet by mouth twice a day for 90 DAYS. omeprazole (omeprazole 20 mg oral delayed release capsule) TAKE 2 CAPSULES BY MOUTH DAILY. rosuvastatin (rosuvastatin 40 mg oral tablet) take 1 tablet by mouth once daily. venlafaxine (venlafaxine 75 mg oral capsule, extended release) take 1 capsule by mouth once daily. warfarin (warfarin 4 mg oral tablet) TAKE 1 TAB BY MOUTH EVERY OTHER DAY (EXCEPT 5MG ON SUNDAYS). warfarin (warfarin 5 mg oral tablet) take 1 tablet by mouth once daily. Visit Information Allergies: Substance Reaction Symptoms Type Comments penicillin Other Vital Signs: Vitals and Measurements this Visit (last charted value for your 02/26/2023 visit) Vital Signs This Visit Temperature Tympanic: 36.5 DegC Peripheral Pulse Rate: 70 bpm Respiratory Rate: 16 br/min Systolic Blood Pressure: 120 mmHg Diastolic Blood Pressure: 70 mmHg SpO2: 94 % Oxygen Therapy: Room air Blood Pressure Method: Manual Measurements This Visit Height/Length Measured: 175.26 cm Weight Measured: 106.05 kg Body Mass Index: 34.53 kg/m2 BSA Measured: 2.27 m2 Problems List: Problem Onset Comments No Problems found Patient Education Puncture Wound A puncture wound is an injury that is caused by a sharp, thin object that goes through (penetrates) your skin. Usually, a puncture wound does not leave a large opening in your skin, so it may not bleed a lot. However, when you get a puncture wound, dirt or other materials (foreign bodies) can be forced into your wound and can break off inside. This increases the chance of infection, such as tetanus. There are many sharp, pointed objects that can cause puncture wounds, including teeth, nails, splinters of glass, fishhooks, and needles. Treatment may include washing out the (more content not included)... 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 Your Care Team Attending Physician - EDGAR DANIELLE PA-C Primary Care Physician - Noe Caballero MD This Is Your Medications List amlodipine (amLODIPine 5 mg Tab) ascorbic acid (Vitamin C) celecoxib (CeleBREX 200 mg Cap) cholecalciferol (Vitamin D3 5000 intl units oral capsule) lisinopril (lisinopril 30 mg Tab) metformin (metformin 500 mg Tab) metoprolol (metoprolol 50 mg ER Tab) omeprazole (omeprazole 20 mg Cap-DR) rosuvastatin (rosuvastatin 10 mg Tab) venlafaxine (venlafaxine 75 mg Cap-ER) warfarin (Coumadin 4 mg Tab) zinc sulfate (Zinc) Procedures Performed Fluoroscopy guided ESWL (extracorporeal shockwave lithotripsy) of calculus of left ureter (01/17/2022), Cystoscopy (09/20/2021), Cystoscopy (07/10/2021), ESWL of kidney (01/08/2021), ESWL of kidney (11/06/2020), Cystoscopic removal of ureteric stent (08/09/2019), Cystoscopic insertion of ureteric stent (07/22/2019), Placement of stent in cardiac conduit (07/12/2019), Cystoscopy and retrograde pyelography (07/06/2014), Back care, Angela filter, Hemorrhoidectomy, History of knee surgery, Tonsillectomy. Discharge Vitals Heart Rate (Peripheral) 68 Respiratory Rate 16 Blood Pressure 130/72 Height 178 cm Height 70 in Weight 106 kg Weight 233.2 lb BMI 33.46 What to do next Scheduled Follow-Up Appointments Friday 10:00 AM EST With: ELIJAH ALLEN, EDGAR Paniagua Where: [facility] Patient Educationon 02-19-20 Patient Education Urology Kidney Stones Kidney stones are rock-like masses that form inside of the kidneys. Kidneys are organs that make pee (urine). A kidney stone may move into other parts of the urinary tract, including: ? The tubes that connect the kidneys to the bladder (ureters). ? The bladder. ? The tube that carries urine out of the body (urethra). Kidney stones can cause very bad pain and can block the flow of pee. The stone usually leaves your body (passes) through your pee. You may need to have a doctor take out the stone. What are the causes? Kidney stones may be caused by: ? A condition in which certain glands make too much parathyroid hormone (primary hyperparathyroidism). ? A buildup of a type of crystals in the bladder made of a chemical called uric acid. The body makes uric acid when you eat certain foods. ? Narrowing (stricture) of one or both of the ureters. ? A kidney blockage that you were born with. ? Past surgery on the kidney or the ureters, such as gastric bypass surgery. What increases the risk? You are more likely to develop this condition if: ? You have had a kidney stone in the past. ? You have a family history of kidney stones. ? You do not drink enough water. ? You eat a diet that is high in protein, salt (sodium), or sugar. ? You are overweight or very overweight (obese). What are the signs or symptoms? Symptoms of a kidney stone may include: ? Pain in the side of the belly, right below the ribs (flank pain). Pain usually spreads (radiates) to the groin. ? Needing to pee often or right away (urgently). ? Pain when going pee (urinating). ? Blood in your pee (hematuria). ? Feeling like you may vomit (nauseous). ? Vomiting. ? Fever and chills. How is this treated? Treatment depends on the size, location, and makeup of the kidney stones. The stones will often pass out of the body through peeing. You may need to: ? Drink more fluid to help pass the stone. In some cases, you may be given fluids through an IV tube put into one of your veins at the hospital. ? Take medicine for pain. ? Make changes in your diet to help keep kidney stones from coming back. Sometimes, medical procedures are needed to remove a kidney stone. This may involve: ? A procedure to break up kidney stones using a beam of light (laser) or shock waves. ? Surgery to remove the kidney stones. Follow these instructions at home: Medicines ? Take rzei-syb-ravutvf and prescription medicines only as told by your doctor. ? Ask your doctor if the medicine prescribed to you requires you to avoid driving or using heavy machinery. Eating and drinking ? Drink enough fluid to keep your pee pale yellow. You may be told to drink at least 8?10 glasses of water each day. This will help you pass the stone. ? If told by your doctor, change your diet. This may include: ? Limiting how much salt you eat. ? Eating more fruits and vegetables. ? Limiting how much meat, poultry, fish, and eggs you eat. ? Follow instructions from your doctor about eating or drinking restrictions. General instructions ? Collect pee samples as told by your doctor. You may need to collect a pee sample: ? 24 hours after a stone comes out. ? 8?12 weeks after a stone comes out, and every 6?12 months after that. ? Strain your pee every time you pee (urinate), for as long as told. Use the strainer that your doctor recommends. ? Do not throw out the stone. Keep it so that it can be tested by your doctor. ? Keep all follow-up visits as told by your doctor. This is important. You may need follow-up tests. How is this prevented? To prevent another kidney stone: ? Drink enough fluid to keep your pee pale yellow. This is the best way to prevent kidney stones. ? Eat healthy foods. ? Avoid certain foods as told by your doctor. You may be told to eat less protein. ? Stay at a healthy weight. Where to find more information ? National Kidney Foundation (NKF): www.kidney.org ? [employer] (UCF): www.urologyhealth.org Contact a doctor if: ? You have pain that gets worse or does not get better with medicine. Get help right away if: ? You have a fever or chills. ? You get very bad pain. ? You get new pain in your belly (abdomen). ? You pass out (faint). ? You cannot pee. Summary ? Kidney stones are rock-like masses that form inside of the kidneys. ? Kidney stones can cause very bad pain and can block the flow of pee. ? The stones will often pass out of the body through peeing. ? Drink enough fluid to keep your pee pale yellow. This information is not intended to replace advice given to you by your health care provider. Make sure you discuss any questions you have with your health care provider. Document Revised: 05/20/2022 Document Reviewed: 05/20/2022 ThisNext Patient Education ? 2022 [employer]. [facility] U[facility] Office/Clinic Noteon 02-18-2023 Urology Office/Clinic Note Chief Complaint Follow up to MAKENNA/KUB HPI Staff Former DLS pt DX: Kidney Stone, BPH & Renal Cyst *No Urology Medications. CT done 07/17/22 Pt then passed stone 01/19/23 MAKENNA & KUB done 01/21/23 Denies any current stone symptoms. Denies current urinary symptoms. Last PSA done 07/03/22- 1.36 History of Present Illness staff HPI reviewed and agree. Review of Systems PHQ Score Initial Depression Screen Score: 0 no fever, chills, malaise, myalgia. no rash/lesions. no chest pain, palpitations, or SOB. no abdominal pain, nausea, vomiting. no unilateral calf swelling, redness, pain Physical Exam Vitals & Measurements HR: 68(Peripheral) RR: 16 BP: 130/72 HT: 70 in HT: 178 cm WT: 106 kg WT: 233.2 lb BMI: 33.46 General: nontoxic, NAD Mouth: moist mucosa Lungs: normal respiratory effort Cardio: regular rate, good distal perfusion Abdomen: nondistended, no suprapubic distention or tenderness, no CVA tenderness Neurologic: Grossly normal Skin: No rashes or suspicious lesions Assessment/Plan UA completed in office today shows no microhematuria or signs of infection. 1. Kidney stone (N20.0: Calculus of kidney) multiple rounds of lithotripsy previously. most recent was ESWL in December 2021. pt passed a stone spontaneously about 1 mo ago. brought with him. will send for analysis. Pt had MAKENNA 07/01/22 which noted several stones L side, largest 7mm. However CT 07/17/22 report said this was 2mm, I viewed image myself and agree. MAKENNA 01/21/23 showed 6 mm L renal stone. KUB x 2 did not visualize stone (s). I explained that MAKENNA is not always accurate for size of stones and would trust the CT size over the MAKENNA. no indication for lithotripsy at this time. continue to monitor. will get MAKENNA in 6 mos. no KUB since stones not visible on last 2 KUB. if MAKENNA shows significant increase in size or number of stones then will need CT to confirm. Ordered: E&M of Est. Patient Moderate 30-39 Min 71899 PSA Total Urnls Dip Stick Auto w/o Microscopy POC 48903 US Renal 2. Prostate cancer screening (Z12.5: Encounter for screening for malignant neoplasm of prostate) PSA 07/03/22 - 1.36 will need repeat this fall. order placed. No additional PSA in [facility] system (gets labs annually for PCP but doesn't look like this was included). Ordered: E&M of Est. Patient Moderate 30-39 Min 57063 PSA Total 3. BPH without obstruction/lower urinary tract symptoms (N40.0: Benign prostatic hyperplasia without lower urinary tract symptoms) Pt is currently taking no bladder/prostate medication and is highly satisfied with overall symptom control. No indication for treatment at this time. Continue to monitor. Ordered: E&M of Est. Patient Moderate 30-39 Min 95622 PSA Total 4. Renal cyst (N28.1: Cyst of kidney, acquired) Pt's Renal US shows bilat simple cysts, largest 6cm on right. Ordered: E&M of Est. Patient Moderate 30-39 Min 14993 PSA Total f/u 6 mos w MAKENNA and PSA prior Follow-up With When Contact Information ELIJAH ALLEN, EDGAR Paniagua, URL Within 6 months [address] [facility] [place] [address] Business (1) Additional Instructions: Patient Education Kidney Stones, [id number] Problem List/Past Medical History Ongoing Anticoagulated Anxiety Asymptomatic microscopic hematuria Bilateral nephrolithiasis BMI 33.0-33.9,adult BPH without obstruction/lower urinary tract symptoms Coronary artery disease Diabetes Elevated cholesterol Gross hematuria Hypertension Kidney stone Renal cyst Ureteral stone Ureteral stone with hydronephrosis Historical Anxiety disorder Deep vein thrombosis Enlarged prostate with urinary obstruction Flank pain Gastroesophageal reflux disease History of kidney stones Hydronephrosis with obstructing calculus Hypertension Kidney stones Nephrolithiasis Renal calculus Procedure/Surgical History Fluoroscopy guided ESWL (extracorporeal shockwave lithotripsy) of calculus of left ureter (01/17/2022), Cystoscopy (09/20/2021), Cystoscopy (07/10/2021), ESWL of kidney (01/08/2021), ESWL of kidney (11/06/2020), Cystoscopic removal of ureteric stent (08/09/2019), Cystoscopic insertion of ureteric stent (07/22/2019), Placement of stent in cardiac conduit (07/12/2019), Cystoscopy and retrograde pyelography (07/06/2014), Back care, Angela filter, Hemorrhoidectomy, History of knee surgery, Tonsillectomy. Medications amLODIPine 5 mg Tab CeleBREX 200 mg Cap, 200 mg= 1 cap(s), Oral, Daily Coumadin 4 mg Tab, 4 mg= 1 tab(s), Oral, As Directed lisinopril 30 mg Tab, 30 mg= 1 tab(s), Oral, Daily metformin 500 mg Tab, 500 mg= 1 tab(s), Oral, Daily metoprolol 50 mg ER Tab, 50 mg= 1 tab(s), Oral, BID omeprazole 20 mg Cap-DR, 20 mg= 1 cap(s), Oral, Daily rosuvastatin 10 mg Tab, 10 mg= 1 tab(s), Oral, Daily venlafaxine 75 mg Cap-ER, 75 mg= 1 cap(s), Oral, Daily Vitamin C, 500 mg, Oral, Daily Vitamin D3 5000 intl units oral capsule, 125 mcg= 1 cap(s), (more content not included)... Normal [facility] Comment on above: Result Comment: Elec tronically Signed By: ELIJAH ALLEN, EDGAR Paniagua\.br\Date and Time Signed: 02/18/23 15:31 EDT CBC AUTO DIFFon 01-31-2023 BASO # 0.1 103/ul Normal 0.0-0.1 [facility] Comment on above: Performed By: #### P T #### [facility] [address] [place] [address] Dr. Curly Connell Basophils/100 WBC (Bld) 0.9 % Normal 0.2-2.0 [facility] Comment on above: Performed By: #### P T #### [facility] [address] [place] [address] Dr. Curly Connell EO # 0.1 103/ul Normal 0.0-0.7 [facility] Comment on above: Performed By: #### P T #### [facility] [address] [place] [address] Dr. Curly Connell Eosinophils/100 WBC (Bld) 1.2 % Normal 0.9-7.0 [facility] Comment on above: Performed By: #### P T #### [facility] [address] [place] [address] Dr. Curly Connell Erythrocyte distribution wid th (RBC) [Ratio] 19.1 % Critically high 11.0-15.0 [facility] Comment on above: Performed By: #### P T #### [facility] [address] [place] [address] Dr. Curly Connell Hematocrit (Bld) [Volume fraction] 42.3 % Normal 4 2.0-54.0 [facility] Comment on above: Performed By: #### P T #### [facility] [address] [place] [address] Dr. Curly Connell Hemoglobin (Bld) [Mass/Vol] 12.1 g/dL Critically low 14.0 -18.0 [facility] Comment on above: Performed By: #### P T #### [facility] [address] [place] [address] Dr. Curly Connell IG # 0.02 10e3/ul Normal 0.00-0.03 [facility] Comment on above: Performed By: #### P T #### [facility] [address] [place] [address] Dr. Curly Connell IG % 0.2 % Normal 0.0-0.5 [facility] Comment on above: Performed By: #### P T #### [facility] [address] [place] [address] Dr. Curly Connell LYMPH # 2.2 103/ul Normal 1.2-3.8 [facility] Comment on above: Performed By: #### P T #### [facility] [address] [place] [address] Dr. Curly Connell Lymphocytes/100 WBC (Bld) 24.3 % Normal 20.5-60.0 [facility] Comment on above: Performed By: #### P T #### [facility] [address] [place] [address] Dr. Curly Connell MANUAL DIFF REQ NO Normal [facility] Comment on above: Performed By: #### P T #### [facility] [address] [place] [address] Dr. Curly Connell MCH (RBC) [Entitic mass] 21.1 pg Critically low 25.9-[address] [facility] Comment on above: Performed By: #### P T #### [facility] [address] [place] [address] Dr. Curly Connell MCHC (RBC) [Mass/Vol] 28.6 g/dL Critically low 29.9-35.2 [facility] Comment on above: Performed By: #### P T #### [facility] [address] [place] [address] Dr. Curly Connell MCV (RBC) [Entitic vol] 73.8 fL Critically low 80.0-94. 0 [facility] Comment on above: Performed By: #### P T #### [facility] [address] [place] [address] Dr. Curly Connell MONO # 0.8 103/ul Normal 0.3-0.8 [facility] Comment on above: Performed By: #### P T #### [facility] [address] [place] [address] Dr. Curly Connell Monocytes/100 WBC (Bld) 9.2 % Normal 1.7-12.0 [facility] Comment on above: Performed By: #### P T #### [facility] [address] [place] [address] Dr. Curly Connell NEUT # 5.9 103/ul Normal 1.4-6.5 [facility] Comment on above: Performed By: #### P T #### [facility] [address] [place] [address] Dr. Curly Connell Neutrophils/100 WBC (Bld) 64.2 % Normal 43.0-75.0 [facility] Comment on above: Performed By: #### P T #### [facility] [address] [place] [address] Dr. Curly Connell Platelet mean volume (Bld) [ Entitic vol] 10.0 fL Normal 9.5-13.5 [facility] Comment on above: Performed By: #### P T #### [facility] [address] [place] [address] Dr. Curly Connell PLT 340 103/ul Normal 150-450 [facility] Comment on above: Performed By: #### P T #### [facility] [address] [place] [address] Dr. Curly Connell RBC 5.73 106/ul Normal 4.70-6.10 [facility] Comment on above: Performed By: #### P T #### [facility] [address] [address] [address] Curly Connell WBC 9.1 103/ul Normal 4.0-11.0 [facility] Comment on above: Performed By: #### P T #### [facility] [address] [address] [address] Curly Connell GLYCOHEMOGLOBIN A1Con 2022 ADA RECOMMENDATION SEE BELOW Normal [facility] Comment on above: Result Comment: ADA RECOMMENDED LIMIT 4.0 - 6.0 ADA THERAPEUTIC TARGET < 7.0 ACTION SUGGESTED > 7.0 Performed By: #### P T #### [facility] [address] [place] [address] Dr. Curly Connell Glucose [Mass/Vol] 151 mg/dL Normal [facility] Comment on above: Performed By: #### P T #### [facility] [address] [place] [address] Dr. Curly Connell HbA1c (Bld) [Mass fraction] 6.9 % Critically high 4.5 -6.2 [facility] Comment on above: Performed By: #### P T #### [facility] [address] [place] [address] Dr. Curly Connell LIPID PROFILEon 01-31-2023 CHOL-HDL RATIO NORM SEE BELOW Normal [facility] Comment on above: Result Comment: 3.3 - 4.4 LOW RISK 4.4 - 7.1 AVERAGE RISK 7.1 - 11.0 MODERATE RISK >11.0 HIGH RISK Performed By: #### P T #### [facility] [address] [address] [address] Curly Connell Cholesterol [Mass/Vol] 149 mg/dL Normal <=200 [facility] Comment on above: Performed By: #### P T #### [facility] [address] [address] [address] Curly Connell Cholesterol in HDL [Mass/Vol] 41 mg/dL Normal 40-60 [facility] Comment on above: Performed By: #### P T #### [facility] [address] [address] [address] Curly Connell Cholesterol in LDL [Mass/Vol] 77.8 mg/dL Normal [facility] Comment on above: Performed By: #### P T #### [facility] [address] [address] [address] Curly Connell Cholesterol.total/Cholestero l in HDL [Mass ratio] 3.6 {ratio} Normal [facility] Comment on above: Performed By: #### P T #### [facility] [address] [address] [address] Curly Connell HDL NORMAL > or = 60 mg/dl - LO W CARDIOVASCULAR RISK <40 mg/dl - HIGH CARDIOVASCULAR RISK Normal [facility] Comment on above: Performed By: #### P T #### [facility] [address] [address] [address] Curly Connell LDL CALC NORMAL SEE BELOW Normal [facility] Comment on above: Result Comment: <100 mg/dl OPTIMAL 100 - 129 mg/dl NEAR OR ABOVE OPTIMAL 130 - 159 mg/dl BORDERLINE HIGH 160 - 189 mg/dl HIGH >190 mg/dl VERY HIGH Performed By: #### P T #### [facility] [address] [address] [address] Curly Connell Triglyceride [Mass/Vol] 151 mg/dL Critically high <=150 [facility] Comment on above: Performed By: #### P T #### [facility] [address] [address] [address] Curly Connell VLDL CALC 30.2 mg/dL Normal [facility] Comment on above: Performed By: #### P T #### [facility] [address] [place] [address] Dr. Curly Connell Office Visiton 01-31-2023 Follow-up visit [id number] Jonathan Luis 1965 M Date Provider Department Center 01/31/2023 SHANIA LYN [facility] Family History Problem Relation Age of Onset Coronary artery disease Mother Coronary artery disease Father Family Status - Relation Status Age at Mother Father Level of Service:26125 SC OFFICE/OUTPATIENT ESTABLISHED MOD MDM 30-39 MIN Reason for Visit and Comments: Coronary Artery Disease [187] Hypertension [384428] Hyperlipidemia [182] Normal [facility] PROF 14(COMP METB)on 023 Albumin [Mass/Vol] 3.6 g/dL Normal 3.4-5.0 [facility] Comment on above: Performed By: #### P T #### [facility] [address] [place] [address] Dr. Curly Connell Albumin/Globulin [Mass ratio] 0.8 {ratio} Normal [facility] Comment on above: Performed By: #### P T #### [facility] [address] [place] [address] Dr. Curly Connell ALP [Catalytic activity/Vol] 66 U/L Normal 46-116 [facility] Comment on above: Performed By: #### P T #### [facility] [address] [place] [address] Dr. Curly Connell ALT [Catalytic activity/Vol] 21 U/L Normal 16-63 [facility] Comment on above: Performed By: #### P T #### [facility] [address] [place] [address] Dr. Curly Connell Anion gap [Moles/Vol] 9.6 mmol/L Normal [facility] Comment on above: Performed By: #### P T #### [facility] [address] [place] [address] Dr. Curly Connell AST [Catalytic activity/Vol] 15 U/L Normal 15-37 [facility] Comment on above: Performed By: #### P T #### [facility] [address] [place] [address] Dr. Curly Connell Bilirubin [Mass/Vol] 0.4 mg/dL Normal 0.2-1.0 [facility] Comment on above: Performed By: #### P T #### [facility] [address] [place] [address] Dr. Curly Connell Calcium [Mass/Vol] 9.2 mg/dL Normal 8.5-10.1 [facility] Comment on above: Performed By: #### P T #### [facility] [address] [place] [address] Dr. Curly Connell Chloride [Moles/Vol] 106 mmol/L Normal 98-107 [facility] Comment on above: Performed By: #### P T #### [facility] [address] [address] [address] Curly Connell CO2 [Moles/Vol] 28.2 mmol/L Normal 21.0-32.0 [facility] Comment on above: Performed By: #### P T #### [facility] [address] [place] [address] Dr. Curly Connell Creatinine [Mass/Vol] 1.23 mg/dL Normal 0.70-1.30 [facility] Comment on above: Performed By: #### P T #### [facility] [address] [place] [address] Dr. Curly Connell EGFR-AF MALTESE >60 Normal >=60 [facility] Comment on above: Performed By: #### P T #### [facility] [address] [place] [address] Dr. Curly Connell EGFR-NON AF MALTESE 60 mL/min/1.73m2 Normal >=60 [facility] Comment on above: Performed By: #### P T #### [facility] [address] [place] [address] Dr. Curly Connell Globulin (S) [Mass/Vol] 4.3 g/dL Normal [facility] Comment on above: Performed By: #### P T #### [facility] [address] [address] [address] Curly Connell Glucose [Mass/Vol] 123 mg/dL Critically high 74-106 [facility] Comment on above: Performed By: #### P T #### [facility] [address] [place] [address] Dr. Curly Connell Potassium [Moles/Vol] 4.8 mmol/L Normal 3.5-5.1 [facility] Comment on above: Performed By: #### P T #### [facility] [address] [address] [address] Curly Connell Protein [Mass/Vol] 7.9 g/dL Normal 6.4-8.2 [facility] Comment on above: Performed By: #### P T #### [facility] [address] [address] [address] Curly Connell Sodium [Moles/Vol] 139 mmol/L Normal 136-145 [facility] Comment on above: Performed By: #### P T #### [facility] [address] [address] [address] Curly Connell Urea nitrogen [Mass/Vol] 25.0 mg/dL Critically high 7.0-[address] [facility] Comment on above: Performed By: #### P T #### [facility] [address] [address] [address] Curly Connell Urea nitrogen/Creatinine [Mass ratio] 20.3 mg/mg Normal [facility] Comment on above: Performed By: #### P T #### [facility] [address] [address] [address] Curly Connell PROTIMEon 01-31-2023 INR Coag (PPP) [Relative time] 2.17 {INR} Normal [facility] Comment on above: Performed By: #### P T #### [facility] [address] [address] [address] Curly Connell INR GUIDELINES SEE BELOW Normal [facility] Comment on above: Result Comment: DAFNE RED INR: 2.0 - 3.0 CONDITIONS NOT LISTED BELOW 2.5 - 3.5 FOR PROSTHETIC HEART VALVE REPLACEMENT 2.5 - 3.5 RECURRENT THROMBOSIS Performed By: #### P T #### [facility] [address] [address] [address] Curly Connell PT Coag (PPP) [Time] 22.0 s Critically high 9.0-11.6 [facility] Comment on above: Performed By: #### P T #### [facility] [address] [address] [address] Curly Connell RAD - MISCon 01-22-2023 RAD - MISC [id number]: 127 Normal [facility] RAD - Ultrasound Reporton RAD - Ultrasound Report [id number]:127 Normal [facility] US KIDNEYSon 01-21-2023 US KIDNEYS EXAMINATION: [facility]: Kidney stone COMPARISON: No relevant comparison available. TECHNIQUE: Ultrasound examination was performed of the bladder. FINDINGS: Right Kidney: Normal in size, contour and echotexture. No solid cortical mass or hydronephrosis. Area of anechoic echogenicity upper pole measuring 5.6 cm, simple cyst. Area of anechoic echogenicity with minimal internal layering debris measuring 4.2 cm lower pole. The cortex measures 1 cm. Height: 6.9 cm Length: 12.8 cm Width: 5.0 cm Left Kidney: Normal in size, contour and echotexture. No solid cortical mass or hydronephrosis. Area of anechoic echogenicity measuring 2.2 cm, medial mid pole. 6 mm echogenic focus, nonobstructing nephrolith. The cortex measures 1.6 cm Height: 7.5 cm Length: 12.7 cm Width: 4.7 cm Urinary bladder measures 39 cc IMPRESSION: Nonobstructing 6 mm left nephrolith Bilateral cortical cysts Electronically authenticated by: EFREM HUMPHREYS Date: 2023-01-21 10:[address] [facility] XR KUB 1 VIEWon 01-21-2023 XR KUB 1 VIEW EXAMINATION: XR KUB 1 VIEW HISTORY: Hydronephrosis co-occurrent and due to calculus of kidney and ureter COMPARISON: 07/01/2022 FINDINGS: KIDNEY/URETER - RIGHT: No visible renal or ureteral calcifications. KIDNEY/URETER - LEFT: No visible renal or ureteral calcifications. PELVIS: No visible ureteral calcifications. Any visible calcifications favor phleboliths. BOWEL: No abnormal dilation or deviation. BONES: No acute abnormality. Degenerative changes of the spine OTHER: IVC filter. No abnormal gaseous collections. IMPRESSION: No definite urinary tract calculi Electronically authenticated by: EFREM HUMPHREYS Date: 2023-01-21 10:37 Normal [facility] PROTIMEon 12-30-2022 INR Coag (PPP) [Relative time] 2.16 {INR} Normal [facility] Comment on above: Performed By: #### P T #### [facility] Laboratory [address] [place] [address] Dr. Curly Connell INR GUIDELINES SEE BELOW Normal [facility] Comment on above: Result Comment: DAFNE RED INR: 2.0 - 3.0 CONDITIONS NOT LISTED BELOW 2.5 - 3.5 FOR PROSTHETIC HEART VALVE REPLACEMENT 2.5 - 3.5 RECURRENT THROMBOSIS Performed By: #### P T #### [facility] [address] [place] [address] Dr. uCrly Connell PT Coag (PPP) [Time] 21.9 s Critically high 9.0-11.6 [facility] Comment on above: Performed By: #### P T #### [facility] [address] [place] [address] Dr. Curly Connell PROTIMEon 10-14-2022 INR Coag (PPP) [Relative time] 2.36 {INR} Normal [facility] Comment on above: Performed By: #### P T #### [facility] [address] [place] [address] Dr. Curly Connell INR GUIDELINES SEE BELOW Normal [facility] Comment on above: Result Comment: DAFNE RED INR: 2.0 - 3.0 CONDITIONS NOT LISTED BELOW 2.5 - 3.5 FOR PROSTHETIC HEART VALVE REPLACEMENT 2.5 - 3.5 RECURRENT THROMBOSIS Performed By: #### P T #### [facility] [address] [place] [address] Dr. Curly Connell PT Coag (PPP) [Time] 23.8 s Critically high 9.0-11.6 [facility] Comment on above: Performed By: #### P T #### [facility] [address] [place] [address] Dr. Curly Connell PROTIMEon 09-16-2022 INR Coag (PPP) [Relative time] 1.93 {INR} Normal [facility] Comment on above: Performed By: #### P T #### [facility] [address] [place] [address] Dr. Curly Connell INR GUIDELINES SEE BELOW Normal [facility] Comment on above: Result Comment: DAFNE RED INR: 2.0 - 3.0 CONDITIONS NOT LISTED BELOW 2.5 - 3.5 FOR PROSTHETIC HEART VALVE REPLACEMENT 2.5 - 3.5 RECURRENT THROMBOSIS Performed By: #### P T #### [facility] [address] [place] [address] Dr. Curly Connell PT Coag (PPP) [Time] 20.0 s Critically high 9.0-11.6 [facility] Comment on above: Performed By: #### P T #### [facility] [address] [place] [address] Dr. Curly Connell PROTIMEon 08-07-2022 INR Coag (PPP) [Relative time] 2.68 {INR} Normal [facility] Comment on above: Performed By: #### P T #### [facility] [address] [place] [address] Dr. Curly Connell INR GUIDELINES SEE BELOW Normal [facility] Comment on above: Result Comment: DAFNE RED INR: 2.0 - 3.0 CONDITIONS NOT LISTED BELOW 2.5 - 3.5 FOR PROSTHETIC HEART VALVE REPLACEMENT 2.5 - 3.5 RECURRENT THROMBOSIS Performed By: #### P T #### [facility] [address] [place] [address] Dr. Curly Connell PT Coag (PPP) [Time] 27.1 s Critically high 9.0-11.6 [facility] Comment on above: Performed By: #### P T #### [facility] [address] [place] [address] ABD/PELVIS WO CONon 07-17 CT ABD/PELVIS WO CON EXAMINATION: CT ABD /PELVIS WO CON HISTORY: Kidney stone COMPARISON: CTA abdomen pelvis 10/02/2021 TECHNIQUE: Axial, Coronal, and Sagittal images were obtained without and/or with IV contrast as indicated by examination type. Dose reduction techniques were achieved by using automated exposure control and/or adjustment of mA and/or kV according to patient size and/or use of iterative reconstruction technique. FINDINGS: LUNG BASES: No visible pulmonary or pleural disease. LIVER: No enlargement, atrophy, suspicious density, or significant focal lesion. BILIARY: No dilatation or calcification. PANCREAS: No lesion, fluid collection, or abnormal duct dilatation. SPLEEN: No enlargement or focal lesion. ADRENALS: No mass or enlargement. KIDNEYS: Nonobstructing 2 mm stone within left kidney. A lateral renal cysts. BOWEL/MESENTERY: No visible mass, obstruction, or bowel wall thickening. AORTA/VASCULAR: No aneurysm or dissection. Filter within the IVC. RETROPERITONEUM: No mass or adenopathy. LYMPH NODES: No adenopathy. URINARY BLADDER: No visible focal wall thickening, lesion, or calculus. PELVIC ORGANS: No visible mass. Pelvic organs appropriate for patient age. ABDOMINAL WALL: No mass or hernia. BONES: No bony lesion or fracture. OTHER: Negative. IMPRESSION: 1. Nonobstructing left nephrolithiasis. No acute findings. Electronically authenticated by: MASON NESBITT Date: 2022-07-17 19:16 Normal [facility] US KIDNEYSon 07-01-2022 US KIDNEYS Ultrasound kidneys, bilateral HISTORY: Kidney stone history of lithotripsy COMPARISON: Ultrasound 11/26/2021 TECHNIQUE: Transabdominal ultrasound imaging of both kidneys was performed. FINDINGS: There is mild cortical lobulation of the right kidney. Parenchyma demonstrates normal echogenicity. The right kidney measures 11.4 x 5.2 x 5.8 cm. There are several anechoic avascular structures in the right kidney compatible with cysts, the largest measures 5.9 x 5.8 x 5.6 cm at the upper pole. There are least 3 additional smaller cysts visualized. There is no renal stone seen. There is no hydronephrosis of right kidney. The left kidney demonstrates normal echogenicity and measures 12.4 x 6.7 x 5.7 cm. There is a cyst at the interpolar region measuring 2.2 x 1.9 x 1.8 cm. There are several echogenic structures with twinkle artifact seen in the left kidney, compatible with nonobstructing stones, largest measuring 7 mm. No hydronephrosis of left kidney. The bladder is moderately distended with prevoid volume of 132 cc. IMPRESSION: 1. Normal size kidneys without hydronephrosis. 2. Bilateral renal cysts, largest cyst is at the upper pole right kidney measuring 5.9 cm. 3. Nonobstructing left renal stones measuring up to 7 mm. No discrete renal stone seen in the right kidney by ultrasound. 4. Normal bladder. Electronically authenticated by: HILL IRVING Date: 2022-07-01 09:02 Normal [facility] XR KUB 1 VIEWon 07-01-2022 XR KUB 1 VIEW EXAMINATION: XR KUB 1 VIEW HISTORY: Kidney stone COMPARISON: 11/13/2021 FINDINGS: KIDNEY/URETER - RIGHT: No visible renal or ureteral calcifications. KIDNEY/URETER - LEFT: No visible renal or ureteral calcifications. PELVIS: No visible ureteral calcifications. Any visible calcifications favor phleboliths. BOWEL: No abnormal dilation or deviation. BONES: No acute abnormality. OTHER: IVC filter. No abnormal gaseous collections. IMPRESSION: No urinary tract calculi Electronically authenticated by: EFREM HUMPHREYS Date: 2022-07-01 16:28 Normal [facility] PROTIMEon 06-25-2022 INR Coag (PPP) [Relative time] 2.60 {INR} Normal [facility] Comment on above: Performed By: #### P T #### [facility] [address] [place] [address] Dr. Curly Connell INR GUIDELINES SEE BELOW Normal [facility] Comment on above: Result Comment: DAFNE RED INR: 2.0 - 3.0 CONDITIONS NOT LISTED BELOW 2.5 - 3.5 FOR PROSTHETIC HEART VALVE REPLACEMENT 2.5 - 3.5 RECURRENT THROMBOSIS Performed By: #### P T #### [facility] [address] [address] [address] Curly Connell PT Coag (PPP) [Time] 26.4 s Critically high 9.0-11.6 [facility] Comment on above: Performed By: #### P T #### [facility] [address] [address] [address] Curly Connell PROTIMEon 06-05-2022 INR Coag (PPP) [Relative time] 3.62 {INR} Normal [facility] Comment on above: Performed By: #### P T #### [facility] [address] [address] [address] Curly Connell INR GUIDELINES SEE BELOW Normal [facility] Comment on above: Result Comment: DAFNE RED INR: 2.0 - 3.0 CONDITIONS NOT LISTED BELOW 2.5 - 3.5 FOR PROSTHETIC HEART VALVE REPLACEMENT 2.5 - 3.5 RECURRENT THROMBOSIS Performed By: #### P T #### [facility] [address] [place] [address] Dr. Curly Connell PT Coag (PPP) [Time] 35.9 s Critically high 9.0-11.6 [facility] Comment on above: Performed By: #### P T #### [facility] [address] [place] [address] Dr. Curly Connell PROTIMEon 05-24-2022 INR Coag (PPP) [Relative time] 2.56 {INR} Normal [facility] Comment on above: Performed By: #### P T #### [facility] [address] [place] [address] Dr. Curly Connell INR GUIDELINES SEE BELOW Normal [facility] Comment on above: Result Comment: DANFE RED INR: 2.0 - 3.0 CONDITIONS NOT LISTED BELOW 2.5 - 3.5 FOR PROSTHETIC HEART VALVE REPLACEMENT 2.5 - 3.5 RECURRENT THROMBOSIS Performed By: #### P T #### [facility] [address] [place] [address] Dr. Curly Connell PT Coag (PPP) [Time] 26.0 s Critically high 9.0-11.6 [facility] Comment on above: Performed By: #### P T #### [facility] [address] [place] [address] Dr. Curly Connell PROTIMEon 05-15-2022 INR Coag (PPP) [Relative time] 4.22 {INR} Critically high [facility] Comment on above: Performed By: #### P T #### [facility] [address] [place] [address] Dr. Curly Connell INR GUIDELINES SEE BELOW Normal [facility] Comment on above: Result Comment: DAFNE RED INR: 2.0 - 3.0 CONDITIONS NOT LISTED BELOW 2.5 - 3.5 FOR PROSTHETIC HEART VALVE REPLACEMENT 2.5 - 3.5 RECURRENT THROMBOSIS Performed By: #### P T #### [facility] [address] [place] [address] Dr. Curly Connell PT Coag (PPP) [Time] 41.5 s Critically high 9.0-11.6 [facility] Comment on above: Performed By: #### P T #### [facility] [address] [place] [address] Dr. Curly Connell PROTIMEon 05-01-2022 INR Coag (PPP) [Relative time] 3.81 {INR} Normal [facility] Comment on above: Performed By: #### P T #### [facility] [address] [place] [address] Dr. Curly Connell INR GUIDELINES SEE BELOW Normal [facility] Comment on above: Result Comment: DAFNE RED INR: 2.0 - 3.0 CONDITIONS NOT LISTED BELOW 2.5 - 3.5 FOR PROSTHETIC HEART VALVE REPLACEMENT 2.5 - 3.5 RECURRENT THROMBOSIS Performed By: #### P T #### [facility] [address] [place] [address] Dr. Curly Connell PT Coag (PPP) [Time] 37.7 s Critically high 9.0-11.6 [facility] Comment on above: Performed By: #### P T #### [facility] [address] [place] [address] Dr. Curly Connell PROTIMEon 04-10-2022 INR Coag (PPP) [Relative time] 2.90 {INR} Normal [facility] Comment on above: Performed By: #### P T #### [facility] [address] [place] [address] Dr. Curly Connell INR GUIDELINES SEE BELOW Normal [facility] Comment on above: Result Comment: DAFNE RED INR: 2.0 - 3.0 CONDITIONS NOT LISTED BELOW 2.5 - 3.5 FOR PROSTHETIC HEART VALVE REPLACEMENT 2.5 - 3.5 RECURRENT THROMBOSIS Performed By: #### P T #### [facility] [address] [place] [address] Dr. Curly Connell PT Coag (PPP) [Time] 29.2 s Critically high 9.0-11.6 [facility] Comment on above: Performed By: #### P T #### [facility] [address] [address] [address] Curly Connell PROTIMEon 03-28-2022 INR Coag (PPP) [Relative time] 2.52 {INR} Normal [facility] Comment on above: Performed By: #### P T #### [facility] [address] [place] [address] Dr. Curly Connell INR GUIDELINES SEE BELOW Normal [facility] Comment on above: Result Comment: DAFNE RED INR: 2.0 - 3.0 CONDITIONS NOT LISTED BELOW 2.5 - 3.5 FOR PROSTHETIC HEART VALVE REPLACEMENT 2.5 - 3.5 RECURRENT THROMBOSIS Performed By: #### P T #### [facility] [address] [place] [address] Dr. Curly Connell PT Coag (PPP) [Time] 25.6 s Critically high 9.0-11.6 [facility] Comment on above: Performed By: #### P T #### [facility] [address] [place] [address] Dr. Curly Connell PROTIMEon 03-25-2022 INR Coag (PPP) [Relative time] 1.81 {INR} Normal [facility] Comment on above: Performed By: #### P T #### [facility] [address] [place] [address] Dr. Curly Connell INR GUIDELINES SEE BELOW Normal [facility] Comment on above: Result Comment: DAFNE RED INR: 2.0 - 3.0 CONDITIONS NOT LISTED BELOW 2.5 - 3.5 FOR PROSTHETIC HEART VALVE REPLACEMENT 2.5 - 3.5 RECURRENT THROMBOSIS Performed By: #### P T #### [facility] [address] [place] [address] Dr. Curly Connell PT Coag (PPP) [Time] 18.8 s Critically high 9.0-11.6 [facility] Comment on above: Performed By: #### P T #### [facility] [address] [place] [address] Dr. Curly Connell Cardiovascular Lab Reporton 03-21-2022 Cardiovascular Lab Report [facility] MR #: [id number] Department of Physician: Brian Byrne M.D. Division of Service Date: 03/20/2022 Cardiology Birthdate: 1965 Adult Cardiovascular Room #: [facility] [address] [place], [place] [address] Cardiovascular Laboratory Report FINAL IMPRESSIONS: 1. Moderate 3-vessel coronary artery disease. 2. Patent stent in the mid left anterior descending coronary artery. 3. Moderate, diffuse mid to distal left anterior descending stenosis. 4. Normal global left ventricular systolic function by noninvasive imaging. 5. Severe disease of a small caliber branching 1st diagonal that is jailed by the adjacent left anterior descending stent. RECOMMENDATIONS: 1. Aggressive cardiovascular risk factor modification. 2. Optimization of medical management; aspirin 81 mg will be added, increase statin to 40 mg of Crestor. Continue beta-paolinar, and angiotensin-converting enzyme inhibitor. We will add Imdur 30 mg a day for possible superimposed spasm. 3. Consider alternate etiologies for the patient's nocturnal pain, namely gastrointestinal. 4. Follow up with [facility] Cardiology in the next 1 to 2 months. 5. Follow up with Dr. Caballero as scheduled. PROCEDURES: Bilateral coronary angiography via a right radial approach. METHODS: After risks, benefits, and alternatives were explained, written informed consent was obtained. The patient was prepped and draped in usual sterile fashion over the right wrist. Using 1% lidocaine solution, local infiltration anesthesia was achieved. Using a modified Seldinger technique, a micropuncture kit and under ultrasound guidance, access of the right radial artery was obtained. A 6-Setswana glide sheath was inserted without difficulty. Bilateral selective coronary angiography was performed using JR5, and JL3.5 catheters. After reviewing the images, it was elected to conclude the procedure. All catheters were removed. The radial sheath was removed with application of a TR band per protocol achieving optimal hemostasis. Overall, the patient tolerated the procedure well. There were no overt complications. He was to be transferred to the holding area in stable condition. FINDINGS: Hemodynamics. AO 133/80. LEFT VENTRICULOGRAPHY: This was not performed. Ejection fraction is normal by noninvasive imaging. CORONARY ARTERIES: 1. Left main coronary artery. This arises from the left coronary cusp. It is a short vessel that rapidly bifurcates into the left anterior descending and left circumflex coronary artery. It is free of significant stenosis. 2. Left anterior descending coronary artery. This shows mild plaque proximally. There is a patent stent in the midportion of the vessel. There is moderate diffuse caliber reduction from the mid to distal portion. The 1st diagonal is a branching vessel with a 90-95% stenosis in the proximal portion at the branch point. It is 2 mm or less in diameter. It is jailed by the adjacent left anterior descending stenosis. 3. Left circumflex coronary artery. This shows a 40-50% mid vessel stenosis in a large branching second obtuse marginal. 4. Right coronary artery. This is a dominant vessel giving rise to the posterior descending and posterolateral branches. It shows a mid vessel 40-50% stenosis and a proximal 40% stenosis. The posterior circulation shows diffuse plaque and caliber reduction with no significant focal stenosis. INDICATIONS: Chest pain, abnormal stress test. Electronically Signed by: Dagoberto Cormier M.D. 04/08/2022 02:07 P Dagoberto Cormier M.D. Date Dict: 03/20/2022/02:43 P/Dagoberto Cormier M.D. Date Trans: 03/21/2022 12:17 A/bouchra [id number] cc: Shania Bhat, MSN, LEGISLATIVE AIDE-C Department Of Surgery [place] [address] [facility] [address] [facility] [address] [facility] [place] [facility] [id number] Normal [facility] CBC AUTO DIFFon 03-18-2022 BASO # 0.1 103/ul Normal 0.0-0.1 [facility] Comment on above: Performed By: #### C BC #### [facility] [address] [address] [address] Curly Connell Basophils/100 WBC (Bld) 0.8 % Normal 0.2-2.0 [facility] Comment on above: Performed By: #### C BC #### [facility] [address] [place] [address] Dr. Curly Connell EO # 0.1 103/ul Normal 0.0-0.7 [facility] Comment on above: Performed By: #### C BC #### [facility] [address] [place] [address] Dr. Curly Connell Eosinophils/100 WBC (Bld) 1.1 % Normal 0.9-7.0 [facility] Comment on above: Performed By: #### C BC #### [facility] [address] [place] [address] Dr. Curly Connell Erythrocyte distribution wid th (RBC) [Ratio] 20.7 % Critically high 11.0-15.0 [facility] Comment on above: Performed By: #### C BC #### [facility] [address] [place] [address] Dr. Curly Connell Hematocrit (Bld) [Volume fraction] 45.3 % Normal 4 2.0-54.0 [facility] Comment on above: Performed By: #### C BC #### [facility] [address] [place] [address] Dr. Curly Connell Hemoglobin (Bld) [Mass/Vol] 13.5 g/dL Critically low 14.0 -18.0 [facility] Comment on above: Performed By: #### C BC #### [facility] [address] [place] [address] Dr. Curly Connell IG # 0.02 10e3/ul Normal 0.00-0.03 [facility] Comment on above: Performed By: #### C BC #### [facility] [address] [place] [address] Dr. Curly Connell IG % 0.2 % Normal 0.0-0.5 [facility] Comment on above: Performed By: #### C BC #### [facility] [address] [place] [address] Dr. Curly Connell LYMPH # 1.9 103/ul Normal 1.2-3.8 [facility] Comment on above: Performed By: #### C BC #### [facility] [address] [place] [address] Dr. Curly Connell Lymphocytes/100 WBC (Bld) 23.4 % Normal 20.5-60.0 [facility] Comment on above: Performed By: #### C BC #### [facility] [address] [place] [address] Dr. Curly Connell MANUAL DIFF REQ NO Normal [facility] Comment on above: Performed By: #### C BC #### [facility] [address] [place] [address] Dr. Curly Connell MCH (RBC) [Entitic mass] 23.0 pg Critically low 25.9-[address] [facility] Comment on above: Performed By: #### C BC #### [facility] [address] [place] [address] Dr. Curly Connell MCHC (RBC) [Mass/Vol] 29.8 g/dL Critically low 29.9-35.2 [facility] Comment on above: Performed By: #### C BC #### [facility] [address] [place] [address] Dr. Curly Connell MCV (RBC) [Entitic vol] 77.2 fL Critically low 80.0-94. 0 [facility] Comment on above: Performed By: #### C BC #### [facility] [address] [place] [address] Dr. Curly Connell MONO # 0.6 103/ul Normal 0.3-0.8 [facility] Comment on above: Performed By: #### C BC #### [facility] [address] [place] [address] Dr. Curly Connell Monocytes/100 WBC (Bld) 7.7 % Normal 1.7-12.0 [facility] Comment on above: Performed By: #### C BC #### [facility] [address] [place] [address] Dr. Curly Connell NEUT # 5.5 103/ul Normal 1.4-6.5 [facility] Comment on above: Performed By: #### C BC #### [facility] [address] [place] [address] Dr. Curly Connell Neutrophils/100 WBC (Bld) 66.8 % Normal 43.0-75.0 [facility] Comment on above: Performed By: #### C BC #### [facility] [address] [place] [address] Dr. Curly Connell Platelet mean volume (Bld) [Entitic vol] 9.8 fL Normal 9.5-13.5 [facility] Comment on above: Performed By: #### C BC #### [facility] [address] [place] [address] Dr. Curly Connell PLT 337 103/ul Normal 150-450 [facility] ostal Comment on above: Performed By: #### C BC #### [facility] [address] [place] [address] Dr. Curly Connell RBC 5.87 106/ul Normal 4.70-6.10 [facility] Comment on above: Performed By: #### C BC #### [facility] [address] [place], [place] [id number] Dr. Curly Connell WBC 8.3 103/ul Normal 4.0-11.0 [facility] Comment on above: Performed By: #### C BC #### [facility] [address] [place] [address] Dr. Curly Connell [facility] SARS-CoV-2 (COVID-19) RNA MARCELLO+probe Ql (Unsp spec) Not detected Normal NOT DETECTED [facility] Comment on above: Result Comment: This test is not yet approved or cleared by the [place] FDA. When there are no FDA-approved or cleared tests available, and other criteria are met, FDA can make tests available under an emergency access mechanism called an Emergency Use Authorization (EUA). The EUA for this test is supported by the [place] of Health and Human Service's (HHS's) declaration that circumstances exist to justify the emergency use of in vitro diagnostics for the detection and/or diagnosis of the virus that causes COVID-19. This EUA will remain in effect (meaning this test can be used) for the duration of the COVID-19 declaration justifying emergency of IVDs, unless it is terminated or revoked by FDA (after which the test may no longer be used). When diagnostic testing is negative, the possibility of a false negative should be considered in the context of a patient's recent exposures and the presence of clinical signs and symptoms consistent with SARS-CoV-2. Performed By: #### C VDTB #### [facility] [address] [place] [address] Dr. Curly Connell PROF CHEM 8 (BAS METB)on Anion gap [Moles/Vol] 12.9 mmol/L Normal [facility] Comment on above: Performed By: #### P T #### [facility] [address] [place] [address] Dr. Curly Connell Calcium [Mass/Vol] 9.1 mg/dL Normal 8.5-10.1 [facility] Comment on above: Performed By: #### P T #### [facility] [address] [place] [address] Dr. Curly Connell Chloride [Moles/Vol] 105 mmol/L Normal 98-107 [facility] Comment on above: Performed By: #### P T #### [facility] [address] [place] [address] Dr. Curly Connell CO2 [Moles/Vol] 26.0 mmol/L Normal 21.0-32.0 [facility] Comment on above: Performed By: #### P T #### [facility] [address] [place] [address] Dr. Curly Connell Creatinine [Mass/Vol] 1.34 mg/dL Critically high 0.70-1.30 [facility] Comment on above: Performed By: #### P T #### [facility] [address] [place] [address] Dr. Curly Connell EGFR-AF MALTESE >60 Normal >=60 [facility] Comment on above: Performed By: #### P T #### [facility] [address] [address] [address] Curly Connell EGFR-NON AF MALTESE 55 mL/min/1.73m2 Critically low >=60 [facility] Comment on above: Performed By: #### P T #### [facility] [address] [address] [address] Curly Connell Glucose [Mass/Vol] 122 mg/dL Critically high 74-106 [facility] Comment on above: Performed By: #### P T #### [facility] [address] [address] [address] Curly Connell Potassium [Moles/Vol] 4.9 mmol/L Normal 3.5-5.1 [facility] Comment on above: Performed By: #### P T #### [facility] [address] [address] [address] Curly Connell Sodium [Moles/Vol] 139 mmol/L Normal 136-145 [facility] Comment on above: Performed By: #### P T #### [facility] [address] [address] [address] Curly Connell Urea nitrogen [Mass/Vol] 26.0 mg/dL Critically high 7.0-[address] [facility] Comment on above: Performed By: #### P T #### [facility] [address] [address] [address] Curly Connell Urea nitrogen/Creatinine [Mass ratio] 19.4 mg/mg Normal [facility] Comment on above: Performed By: #### P T #### [facility] [address] [address] [address] Curly Connell PROTIMEon 03-12-2022 INR Coag (PPP) [Relative time] 2.73 {INR} Normal [facility] Comment on above: Performed By: #### P T #### [facility] [address] [address] [address] Curly Connell INR GUIDELINES SEE BELOW Normal [facility] Comment on above: Result Comment: DAFNE RED INR: 2.0 - 3.0 CONDITIONS NOT LISTED BELOW 2.5 - 3.5 FOR PROSTHETIC HEART VALVE REPLACEMENT 2.5 - 3.5 RECURRENT THROMBOSIS Performed By: #### P T #### [facility] [address] [place], [place] [address] Dr. Cruly Connell PT Coag (PPP) [Time] 27.6 s Critically high 9.0-11.6 [facility] Comment on above: Performed By: #### P T #### [facility] [address] [place], [place] [address] Dr. Curly Connell NM STRESS/REST MULTIon 03-07 NM STRESS/REST MULTI Patient: LUZ MARINA LUIS Exam Date: 03/07/2022 : 1965 Gender:M Ordering : DR NOE CABALLERO . Admission #: [id number] Family : Order #: [id number] CLICK HERE TO VIEW EXAM RADIOLOGY REPORT PROCEDURE: RADIONUCLIDE IMAGING STRESS/REST MULTI COMPARISON: NM STRESS/REST MULTI, 07/07/2019. INDICATIONS: Chest pain, hypertension TECHNIQUE: Exam Description: Stress/Rest one day protocol gated SPECT Rest Imagin.9 mCi Tc-99m Cardiolite IV on 03/07/2022 Stress Imaging 30.4 mCi Tc-99m Cardiolite IV on 03/07/2022 Exercise Protocol: 0.4 mg Lexiscan given IV Heart Rate (bpm): Rest: 48 Max: 90 PMHR: 55 Blood Pressure: Rest: 142/92 Max: 158/100 Symptoms: Rest and peak stress ECG findings were normal and the exercise portion of the study was normal per attending physician Dr. Butler . For more details please see separate cardiac stress test report. FINDINGS: QUALITY OF STUDY: PERFUSION DEFECT: LOCATION: Mid-anterior. SIZE: Small (1-2 segments). SEVERITY: Severe. TYPE: Reversible. WALL MOTION: Normal. LV SIZE: Normal. 99 mL. TID / TCD: None; 0.9 LVEF: Normal. Calculated EF 66%. SUMMARY: Myocardial perfusion imaging study has ABNORMAL findings. CONCLUSION: 1. Small area of severe decreased uptake in the mid anterior wall with redistribution on rest imaging. Suspicious for an area of reversible ischemia. Consider follow-up evaluation 2. Normal exercise test Dictated by: Efrem Humphreys MD on 03/08/2022 at 11:53 Approved by: Efrem Humphreys MD on 03/08/2022 at 11:55 Normal [facility] ECHOCARDIO M/2D COMPLETEon 0 02-20-2022 ECHOCARDIO M/2D COMPLETE Patient: DORIS LUIS Exam Date: 02/20/2022 : 1965 Gender:M Ordering : DR NOE CABALLEOR . Admission #: [id number] Family : Order #: [id number] CLICK HERE TO VIEW EXAM ECHOCARDIOGRAM REPORT PROCEDURE: CARDIO PULMONARY ECHOCARDIO M/2D COMP INDICATIONS: chest pain, HTN, Anticardiolipin antibody syndrome COMPARISON: None. DESCRIPTION: COMPLETE ECHOCARDIOGRAM Real-time transthoracic echocardiography with 2D, M-mode, spectral and color flow Doppler performed. QUALITY: Technical quality was limited. 69 227# 142/80 HR 54 LEFT VENTRICLE: Normal chamber size. Mild concentric left ventricular hypertrophy. Global left ventricular systolic function is normal. Visual EF 65% LV EF: DIASTOLIC: Normal diastolic function. ATRIAL SEPTUM: LEFT ATRIUM: Normal chamber size. RIGHT ATRIUM: Normal chamber size. RIGHT VENTRICLE: Borderline dilatation. Normal right ventricular systolic function. TRICUSPID VALVE: Normal mobility and thickness. No stenosis with trivial regurgitation. No evidence of pulmonary hypertension. RVSP is 29 mmHg MITRAL VALVE: Normal mobility and thickness. No evidence of mitral valve stenosis. No mitral regurgitation. AORTIC VALVE: Normal trileaflet appearance. No evidence of aortic valve stenosis. No aortic regurgitation. AORTIC ROOT: Normal in size (3.4 cm). Ascending aorta is normal in size (3.5 cm). PULMONIC VALVE: Normal thickness and mobility. No stenosis. Trivial regurgitation. PERICARDIUM: No evidence of pericardial effusion. IVC: Not well visualized. PLEURA: CONCLUSION: 1. Normal ventricular function. LVEF is 65%. 2. No significant valvular dysfunction. 3. Normal right sided pressures. 4. No pericardial effusion. Adult Echocardiography Procedure Report Left Ventricle Left Atrium Mitral Valve Right Ventricle Aorta Aortic Valve Peak Velocity (Antegrade Flow): 1.33 m/s AoV Area (Peak Rohit): 3.61 cm2, 3.61 cm2 Peak Velocity(Antegrade Flow): 1.33 m/s Peak Gradient(Antegrade Flow): 7.12 mm[Hg] Tricuspid Valve Peak Velocity (Regurgitant Flow): 2.56 m/s Peak Velocity: 0.50 m/s Pulmonic Valve PV Max Rohit (0.6 - 0.9 m per sec): 1.19 m/s PV Max Gradient: 5.62 mm[Hg] Right Atrium Dictated by: Demarco Pepe M.D. on 02/21/2022 at 12:40 Approved by: Demarco Pepe M.D. on 02/21/2022 at 12:[address] [facility] PROTIMEon 02-13-2022 INR Coag (PPP) [Relative time] 2.92 {INR} Normal [facility] Comment on above: Performed By: #### P T #### [facility] [address] [address] [address] Curly Connell INR GUIDELINES SEE BELOW Normal [facility] Comment on above: Result Comment: DAFNE RED INR: 2.0 - 3.0 CONDITIONS NOT LISTED BELOW 2.5 - 3.5 FOR PROSTHETIC HEART VALVE REPLACEMENT 2.5 - 3.5 RECURRENT THROMBOSIS Performed By: #### P T #### [facility] [address] [address] [address] Curly Connell PT Coag (PPP) [Time] 29.4 s Critically high 9.0-11.6 [facility] Comment on above: Performed By: #### P T #### [facility] [address] [address] [address] Curly Connell CHEMISTRYOrdered By: Lab ROP User on 01-17-2022 Glucose [Mass/Vol] 121 mg/dL High 55 - 99 mg/dL [facility] C POC Subsection Comment on above: Result Comment: Asael thompson RN/ POC Device SN [id number] Invalid Interpretation Code [facility] [place] POC Subsection POC User ID [id number] Invalid Interpretation Code [facility] [place] POC Subsection POC Username SHANIKA ORTIZ Invalid Interpretation Code [facility] [place] POC Subsection COAGULATIONOrdered By: Efrem Moscoso on 01-17-2022 aPTT Coag (PPP) [Time] 36.2 s Normal 25.1 - 36.5 second(s) [facility] Auto Coag INR Coag (PPP) [Relative time] 1.1 {INR} Invalid Interpretation Code [facility] [place] Auto Coag PT Coag (PPP) [Time] 13.4 s High 10.2 - 12.9 second(s) [facility] [place] Auto Coag CHEMISTRYOrdered By: Efrem soria on 01-11-2022 Anion gap [Moles/Vol] 12 mmol/L Normal 6 - 16 mEq/L [facility] Calcium [Mass/Vol] 9.1 mg/dL Normal 8.9 - 11.1 mg/dL [facility] Chloride [Moles/Vol] 105 mmol/L Normal 101 - 111 mmol/ L [facility] CO2 [Moles/Vol] 25 mmol/L Normal 21 - 31 mmol/L [facility] Creatinine [Mass/Vol] 1.0 mg/dL Normal 0.5 - 1.3 mg/d L [facility] Glucose [Mass/Vol] 152 mg/dL Normal 55 - 199 mg/dL [facility] Potassium [Moles/Vol] 4.3 mmol/L Normal 3.5 - 5.3 mmol /L [facility] Sodium [Moles/Vol] 138 mmol/L Normal 135 - 145 mmol/L [facility] Urea nitrogen [Mass/Vol] 17 mg/dL Normal 5 - 21 mg/d L [facility] Urea nitrogen/Creatinine [Mass ratio] 17 mg/mg Normal 10 - 20 [facility] CHEMISTRYOrdered By: SYSTEM SYSTEM on 01-11-2022 GFR/1.73 sq M.predicted lou g blacks MDRD (S/P/Bld) [Vol rate/Area] mL/min/1.73 m2 Normal >=59mL/min/1.73 m2 [facility] [place] Chem S GFR/1.73 sq M.predicted lou g non-blacks MDRD (S/P/Bld) [Vol rate/Area] mL/min/1.73 m2 Normal >=59mL/min/1.73 m2 [facility] [place] Chem S COAGULATIONOrdered By: Jomar Cheema on 01-11-2022 aPTT Coag (PPP) [Time] 43.3 s High 25.1 - 36.5 second(s) [facility] [place] Auto Coag INR Coag (PPP) [Relative time] 3.0 {INR} Invalid Interpretation Code [facility] [place] Auto Coag PT Coag (PPP) [Time] 35.7 s High 10.2 - 12.9 second(s) [facility] [place] Auto Coag HEMATOLOGYOrdered By: SYSTEM SYSTEM on 01-11-2022 Basophils/100 WBC (Bld) 0.5 % Normal 0.0 - 2.0 % [facility] Basophils/Leukocytes Auto (B ld) [Pure # fraction] 0.0 E9/L Normal 0.0 - 0.2 E9/L [facility] Eosinophils/100 WBC (Bld) 1.5 % Normal 0.0 - 8.0 % [facility] Eosinophils/Leukocytes Auto (Bld) [Pure # fraction] 0.1 E9/L Normal 0.0 - 0.5 E9/L [facility] S Lymphocytes/100 WBC (Bld) 25.0 % Normal 14.0 - 50. 0 % [facility] Lymphocytes/Leukocytes Auto (Bld) [Pure # fraction] 1.6 E9/L Normal 1.0 - 4.0 E9/L [facility] S Monocytes/100 WBC (Bld) 7.6 % Normal 4.0 - 14.0 % [facility] Monocytes/Leukocytes Auto (B ld) [Pure # fraction] 0.5 E9/L Normal 0.2 - 1.0 E9/L [facility] Neutrophils/100 WBC (Bld) 65.4 % Normal 36.0 - 75. 0 % [facility] Neutrophils/Leukocytes Auto (Bld) [Pure # fraction] 4.1 E9/L Normal 2.0 - 7.5 E9/L [facility] S HEMATOLOGYOrdered By: Catalina Savage on 01-11-2022 Erythrocyte distribution width (RBC) [Ratio] 17.7 % High 10.9 - 14.2 % [facility] Hematocrit (Bld) [Volume fraction] 39.8 % Normal 37.7 - 49.0 % [facility] Hemoglobin (Bld) [Mass/Vol] 12.9 g/dL Low 13.5 - 17.5 gm/dL [facility] S Hypochromia Auto Ql (Bld) Present (01/11/22 1:18 PM) Normal [facility] MCH (RBC) [Entitic mass] 24.5 pg Low 27.0 - 34.0 pg [facility] MCHC (RBC) [Mass/Vol] 32.4 g/dL Normal 31.4 - 36.0 gm /dL [facility] MCV (RBC) [Entitic vol] 75.5 fL Low 80.0 - 100.0 fL [facility] Morphology Lazaro (Bld) [Interp] See Morphology (01/11/22 1:18 PM) Normal [facility] Ovalocytes LM Ql (Bld) Present (01/11/22 1:18 PM) Normal [facility] Platelet mean volume (Bld) [Entitic vol] 8.8 fL Normal 6.4 - 10.8 fL [facility] Platelets (Bld) [#/Vol] 275.0 E9/L Normal 150. 0 - 500.0 E9/L [facility] RBC (Bld) [#/Vol] 5.3 E12/L Normal 4.3 - 5.9 E12/L [facility] WBC corrected for nucl RBC Auto (Bld) [#/Vol] 6.2 E9/L Normal 4.0 - 11.0 E9/L [facility] URINALYSISOrdered By: Jomar ball on 01-11-2022 Bacteria LM Ql (Urine sed) Trace /HPF Normal Trace/HPF [facility] SS Bilirubin Ql (U) Negative (01/11/22 1:18 PM) Normal Negative [facility] Auto SS Clarity (U) Clear (01/11/22 1:18 PM) Normal Clear [facility] SS Color (U) Yellow (01/11/22 1:18 PM) Normal Yellow [facility] SS Crystals LM Ql (Urine sed) Present (01/11/22 1:18 PM) Normal [facility] Auto SS Epithelial cells.squamous LM.HPF (Urine sed) [#/Area] 0-2 /HPF Normal 0-2/HPF [facility] SS Glucose Test strip (U) [Mass/Vol] Negative (01/11/22 1:18 PM) Normal Negative [facility] Auto SS Hemoglobin Ql (U) Negative (01/11/22 1:18 PM) Normal Negative [facility] SS Ketones (U) [Mass/Vol] Negative (01/11/22 1:18 PM) Normal Negative [facility]A Auto SS [place].plasma/Lithi um.RBC (Bld) [Mass ratio] 0-3 /HPF Normal 0-3/HPF [facility] Auto SS Mucus Ql (Urine sed) Trace (01/11/22 1:18 PM) Normal [facility] Auto SS Nitrite Ql (U) Negative (01/11/22 1:18 PM) Normal Negative [facility] SS pH (U) 6.0 *NA* (01/11/22 1:18 PM) Invalid Interpretation Code 5.0 - 9.0 [facility] Protein (U) [Mass/Vol] Negative (01/11/22 1:18 PM) Normal Negative [facility] Auto SS Specific gravity (U) [Rel density] 1.025 *NA* (01/11/22 1:18 PM) Invalid Interpretation Code 1.005 - 1.030 [facility] Auto SS UA Spec Desc Clean Catch (01/11/22 1:18 PM) Normal [facility] UA Auto SS Urobilinogen Qn (U) 0.2057136 {Rashida'U}/dL Normal 0.0 - 1.0 EU/dL [facility] Auto SS WBC Auto Ql (U) Negative (01/11/22 1:18 PM) Normal Negative [facility] Auto SS WBC LM.HPF (Urine sed) [#/Area] 0-5 /HPF Normal 0-5/HPF [facility] Auto SS OPERATIVE REPORTon 9 OPERATIVE REPORT [address] [address] OPERATIVE REPORT PATIENT NAME: DORIS LUIS : 1965 MED REC NO: [id number] ROOM: [facility] ACCOUNT NO: [id number] ADMIT DATE: 01/18/2019 PROVIDER: Efrem Matson DATE OF PROCEDURE: 01/18/2019PREOPERATIVE DIAGNOSES: 1. Left L4-L5 disk herniation. 2. Left L5 radiculopathy. POSTOPERATIVE DIAGNOSES 1. Left L4-L5 disk herniation. 2. Left L5 radiculopathy. PROCEDURES: 1. Left L4-L5 microlumbar diskectomy. 2. Use of the operative microscope. SURGEON: Efrem Matson MD ANESTHESIA: General endotracheal anesthesia. ESTIMATED BLOOD LOSS: 50 mL. INDICATIONS FOR SURGERY: The patient is a 53-year-old gentleman who has been having significant pain in the back and left lower extremity for a little over 2 months. 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 There was a mass effect on the L4 and L5 recess as a result. Due to the fact that he is having persistent symptoms despite conservative treatment, the presence of dorsiflexion weakness and extensor hallus longus weakness on the left side and the size of the disk herniation, it was felt that he would likely benefit from operative intervention. The risks, benefits, and alternatives to this approach were discussed with the patient at length, and after having an opportunity to have his questions answered, he provided his consent to proceed to the operating room. DESCRIPTION OF PROCEDURE: The patient was brought to the operating room, and general endotracheal anesthesia was successfully induced by the Anesthesia Service without incident. He was positioned in the prone position on a Sai frame on the Abram table. Care was taken to ensure that all pressure points were adequately padded. The back was prepped and draped in the usual sterile fashion. He received vancomycin for perioperative antibiosis due to PENICILLIN allergy. A time-out was performed. Lateral fluoroscopic imaging was used to localize a left paramedian incision centered over the L4-L5 interspace. Once this was marked, it was infiltrated with local anesthetic with epinephrine, and the skin was then opened with a 10-blade. The knife was used to make a small incision in the fascia, and the YaDataRx tube dilator system was used to dilate up to a working tube that was 7 cm in length and 18 mm in diameter. This was secured to the table with a self-retaining retractor arm, and the position of the tube was confirmed with final lateral and AP fluoroscopic images. At this point, the operative microscope was introduced to the field, and the remainder of the decompression was undertaken with microscopic guidance and microsurgical technique. A small amount of soft tissue overlying the inferior aspect of the L4 lamina was dissected free with Bovie electrocautery, and a barney semi-laminotomy and partial medial facetectomy were then undertaken using the electric drill, Kerrison rongeurs, and an angled curette. The ligamentum flavum was then taken down with Kerrison rongeurs and the thecal sac and proximal portion of the L5 root were readily apparent. These were mobilized medially, and retracting suction was introduced into the wound. I carefully explored the area, trying to identify any free fragments using various dissectors, such as the ball-tip probe. I was unable to mobilize any free fragments doing so and therefore coagulated the epidural venous plexus and made a longitudinal incision in the annulus of the disk. I also widened my exposure somewhat superiorly, and I was able to palpate a large pocket of disk herniation superior to the interspace. I was able to use several dissecting tools to mobilize this disk material down towards the disk space, and it was removed in a piecemeal fashion, though there was one very sizable fragment that was removed in one piece. I also performed a diskectomy at the interspace itself until the interspace seemed to be flush with the posterior aspect of the L5 body. I then performed a foraminotomy over the exiting L5 root. I carefully explored the area around the herniated fragment superiorly until I was confident that I could no longer express any significant disk. Once I felt that the roots were well decompressed, attention was turned to obtaining hemostasis and closing. The field was copiously irrigated with bacitracin-impregnated irrigation. Hemostasis was obtained as necessary with thrombin-Gelfoam powder and bipolar electrocautery. The wound was again copiously irrigated, and the tube was then withdrawn under the microscope and bipolar was used to coagulate any points of hemorrhage along the tract of the tube. Once the tube was out, the wound was closed in layers, and interrupted 2-0 Vicryl suture was placed in the fascia. The subcutaneous fat was closed with inverted interrupted 2-0 Vicryl suture, and the dermis was closed with inverted interrupted 3-0 Vicryl suture. The skin was closed with a running 4-0 Monocryl subcuticular stitch, and the wound was cleaned and dried and dressed with Dermabond. The patient was returned to the supine position and extubated in the operating room without incident. All sponge, instrument, and needle counts were correct at the conclusion of the case. The patient was taken to recovery in stable condition without evidence of complication. EFREM MATSON [id number] Doc#: [id number] CC: [facility] [place] [facility] 01-18-2019 aPTT Coag time (Bld) 19.5 s Low 20.5-30.5 [facility] Comment on above: Result Comment: No c lot found in specimen, results questionable. TEST CONFIRMED Performed By: #### P T, PTT #### [address] [address] Anatomical Embalmer: Panchito Nguyen MD PTon 01-18-2019 INR Coag RelTime (PPP) 0.9 {INR} Normal [facility] Comment on above: Result Comment: Therapeutic Range: Moderate Anticoagulant Intensity: INR = 2.0-3.0 High Anticoagulant Intensity: INR = 2.5-3.5 No clot found in specimen, results questionable. Performed By: #### P T, PTT #### [address] [address] Anatomical Embalmer: Panchito Nguyen MD Prothrombin time (PT) Coag t krish (PPP) 9.5 s Normal 9.0-12.0 [facility] Comment on above: Result Comment: No c lot found in specimen, results questionable. Performed By: #### P T, PTT #### [address] [address] Anatomical Embalmer: Panchito Nguyen MD Type + Screenon 01-18-2019 Type + Screen Sample Expiration Arm Band Number [id number] ABO/Rh(D) A POSITIVE Antibody Screen NEGATIVE Normal [facility] Comment on above: Performed By: #### T YS #### [address] [address] Anatomical Embalmer: Panchito Nguyen MD XR LUMBAR SPINE (2-3 VIEWS)o n 01-18-2019 XR LUMBAR SPINE (2-3 VIEWS) EXAMINATION: 3 XRAY VIEWS OF THE LUMBAR SPINE 01/18/2019 12:43 pm COMPARISON: None. HISTORY: ORDERING SYSTEM PROVIDED HISTORY: intra op; OR12; L4,5 microdisectomy TECHNOLOGIST PROVIDED HISTORY: intra op; OR12; L4,5 microdisectomy Initial exam. 3.1 mGy. 2 images. FINDINGS: There is a device noted at the level of the 2nd presacral disc space along the left side. No intraprocedural complication. IMPRESSION: Fluoroscopy provided intraprocedurally for intraoperative localization. Interpreted by: Anup Guerrero MD Signed by: Anup Guerrero MD 01/18/19 Final result Normal [facility] Vital Signs Date Time Vital Sign Value Performing Clinician Facility 08-29-2023 13:46-0500 Blood Pressure Location Jamil [facility] [place] 08-29-2023 13:46-0500 Diastolic blood pressure 78 mm[Hg] [facility] [place] 08-29-2023 13:46-0500 Heart rate 72 /min Jamil NILL [facility] [place] 08-29-2023 13:46-0500 Respiratory rate 16 /min [facility] [place] 08-29-2023 13:46-0500 Systolic blood pressure 126 mm[Hg] [facility] [place] 03-12-2023 14:22-0400 Blood Pressure Location Ajmil NILL [facility] [place] 03-12-2023 14:22-0400 Diastolic blood pressure 78 mm[Hg] [facility] [place] 03-12-2023 14:22-0400 Heart rate 72 /min Jamil N[facility] [place] 03-12-2023 14:22-0400 Respiratory rate 16 /min Jam[facility] N[facility] [place] 03-12-2023 14:22-0400 Systolic blood pressure 126 mm[Hg] Jam[facility] N[facility] [place] 07-03-2022 13:18-0400 Blood Pressure Location EDGAR DANIELLE [facility] 07-03-2022 13:18-0400 Diastolic blood pressure 76 mm[Hg] EDGAR DANIELLE [facility] 07-03-2022 13:18-0400 Heart rate 62 /min EDGAR DANIELLE [facility] 07-03-2022 13:18-0400 Systolic blood pressure 128 mm[Hg] EDGAR DANIELLE [facility] 01-17-2022 12:56-0400 Blood Pressure Location [facility] 01-17-2022 12:56-0400 BP/Pulse Patient Position [facility] 01-17-2022 12:56-0400 Diastolic blood pressure 79 mm[Hg] [facility] 01-17-2022 12:56-0400 Heart rate 50 /min [facility] 01-17-2022 12:56-0400 Mean blood pressure 94 mm[Hg] [facility] 01-17-2022 12:56-0400 SaO2% (BldA) [Mass fraction] 96 % [facility] 01-17-2022 12:56-0400 Systolic blood pressure 125 mm[Hg] [facility] 01-17-2022 12:56-0400 Body temperature 97.52 [degF] [facility] 01-17-2022 12:01-0400 Blood Pressure Location [facility] 01-17-2022 12:01-0400 BP/Pulse Patient Position [facility] 01-17-2022 12:01-0400 Diastolic blood pressure 83 mm[Hg] [facility] 01-17-2022 12:01-0400 Heart rate 49 /min [facility] 01-17-2022 12:01-0400 Mean blood pressure 98 mm[Hg] [facility] 01-17-2022 12:01-0400 Respiratory rate 16 /min [facility] 01-17-2022 12:01-0400 SaO2% (BldA) [Mass fraction] 94 % [facility] 01-17-2022 12:01-0400 Systolic blood pressure 129 mm[Hg] [facility] 01-17-2022 12:01-0400 Body temperature 97.34 [degF] [facility] 01-17-2022 11:55-0400 Blood Pressure Location [facility] 01-17-2022 11:55-0400 Body temperature 97.34 [degF] [facility] 01-17-2022 11:55-0400 Diastolic blood pressure 81 mm[Hg] [facility] 01-17-2022 11:55-0400 Heart rate 50 /min [facility] 01-17-2022 11:55-0400 Respiratory rate 12 /min [facility] 01-17-2022 11:55-0400 SaO2% (BldA) [Mass fraction] 97 % [facility] 01-17-2022 11:55-0400 Systolic blood pressure 126 mm[Hg] [facility] 01-17-2022 11:40-0400 Respiratory rate 16 /min [facility] 01-17-2022 11:25-0400 Respiratory rate 18 /min [facility] 01-17-2022 11:00-0400 Respiratory rate 25 /min [facility] 01-17-2022 10:55-0400 Respiratory rate 26 /min [facility] 01-17-2022 08:12-0400 gluc 121 mg/dL [facility] 01-17-2022 07:52-0400 Body temperature 97.7 [degF] [facility] 01-17-2022 07:52-0400 BP/Pulse Patient Position [facility] 01-17-2022 07:52-0400 Mean blood pressure 95 mm[Hg] [facility] 01-17-2022 07:52-0400 Heart rate 48 /min [facility] 01-11-2022 12:42-0400 Diastolic blood pressure 81 mm[Hg] [facility] 01-11-2022 12:42-0400 Heart rate 44 /min [facility] 01-11-2022 12:42-0400 Mean blood pressure 97 mm[Hg] [facility] 01-11-2022 12:42-0400 Respiratory rate 16 /min [facility] 01-11-2022 12:42-0400 SaO2% (BldA) [Mass fraction] 98 % [facility] 01-11-2022 12:42-0400 Systolic blood pressure 131 mm[Hg] [facility] 01-11-2022 12:42-0400 Blood Pressure Location [facility] 01-11-2022 12:42-0400 Body temperature 97.7 [degF] [facility] 01-11-2022 12:40-0400 Blood Pressure Location [facility] 01-11-2022 12:40-0400 Diastolic blood pressure 90 mm[Hg] [facility] 01-11-2022 12:40-0400 Heart rate 46 /min [facility] 01-11-2022 12:40-0400 Mean blood pressure 108 mm[Hg] [facility] 01-11-2022 12:40-0400 Respiratory rate 16 /min [facility] 01-11-2022 12:40-0400 SaO2% (BldA) [Mass fraction] 98 % [facility] 01-11-2022 12:40-0400 Systolic blood pressure 144 mm[Hg] [facility] Encounters Encounter Date Encounter Type Care Provider Facility Start: 09-14-2023 Chart abstracting Generic Exte rnal Data Provider GENERIC EXTERNAL DATA DEPARTMENT Start: 08-29-2023 End: 08-30-2023 ambulatory Jamil R NILL Facility:[facility] Start: 08-29-2023 End: 08-29-2023 Patient encounter procedure Jamil R NILL General [facility] [place] Start: 08-14-2023 End: 08-14-2023 ambulatory [facility] Start: 03-12-2023 End: 03-13-2023 ambulatory Jamil R NILL Facility:[facility] [place] Start: 03-12-2023 End: 03-12-2023 Patient encounter procedure Jamil R NILL General Surgery [facility] Start: 02-26-2023 End: 02-26-2023 ambulatory ALFIE RAZA Facility:[facility] Start: 02-19-2023 ambulatory Noe Caballero Facility:[facility] Start: 02-18-2023 End: 02-19-2023 ambulatory PAMarichuy DANIELLE Facility[place] [place] Start: 02-18-2023 End: 02-19-2023 ambulatory ALEJANDRO DANIELLE Facility:[facility] Start: 02-04-2023 End: 02-05-2023 ambulatory SHANIA BHAT Facility:[facility] Start: 01-31-2023 End: 02-01-[address] NOE CABALLERO . Facility:[facility] Start: 01-31-2023 End: 01-31-2023 ambulatory SHANIA BHAT [facility] Start: 01-21-2023 End: 01-22-2023 ambulatory EDGAR DANIELLE Facility:[facility] Start: 12-30-2022 End: 12-31-[address] NOE CABALLERO . Facility:[facility] Start: 10-14-2022 End: 10-15-[address] NOE CABALLERO . Facility:[facility] Start: 09-16-2022 End: 09-17-[address] NOE CABALLERO . Facility:[facility] Start: 08-07-2022 End: 08-28-[address] NOE CABALLERO . Facility:[facility] Start: 07-17-2022 End: 07-18-2022 ambulatory EDGAR DANIELLE Facility:[facility] Start: 07-03-2022 End: 07-04-2022 ambulatory EDGAR DANIELLE Facility:[facility] Start: 07-03-2022 End: 07-03-2022 Patient encounter procedure EDGAR DANIELLE [facility] Start: 07-01-2022 End: 07-02-2022 ambulatory EDGAR DANIELLE Facility:[facility] Start: 06-29-[address] NOE CABALLERO . Facili ty:[facility] Start: 06-05-2022 End: 06-29-[address] NOE CABALLERO . Facility:[facility] Start: 05-24-[address] NOE CABALLERO . Facili ty:[facility] Start: 05-01-2022 End: 05-29-[address] NOE CABALLERO . Facility:[facility] Start: 04-10-2022 End: 04-26-[address] NOE CABALLERO . Facility:[facility] Start: 03-25-2022 End: 03-29-[address] NOE CABALLERO . Facility:[facility] Start: 03-20-2022 End: 03-21-2022 ambulatory DAGOBERTO CORMIER Facility:[facility] Start: 03-18-2022 End: 03-19-2022 ambulatory SHANIA BHAT Facility:[facility] Start: 03-07-2022 End: 07-01-[address] NOE CABALLERO . Facility:[facility] Start: 03-07-2022 End: 03-08-[address] NOE CABALLERO . Facility:[facility] Start: 02-20-2022 End: 02-21-[address] NOE CABALLERO . Facility:[facility] Start: 01-17-2022 End: 01-17-2022 Admission to same day surgery center [facility]co Jr[facility] Start: 01-11-2022 End: 01-11-2022 Patient encounter procedure David L Junior Mccollum [facility] Start: 12-25-2021 End: 12-25-2021 Patient encounter procedure David L Junior Mccollum [facility] Start: 01-18-2019 End: 01-19-2019 Patient encounter procedure EFREM Garza MANUELA [facility] Procedures Date Procedure Procedure Detail Performing Clinician Start: 07-03-[address] SONIDO CABALLERO . Comment on above: Performed By: #### P T #### [facility] [address] [place] [address] Dr. Curly Connell Start: 01-17-2022 Fluoroscopy guided e xtracorporeal shockwave lithotripsy of calculus of left ureter David Pacheco Jr. Start: 09-20-2021 Cystoscopy David valdez Jr. Comment on above: rt. stent removal,ur eteroscopy,retrogade nephroscopy basket retrieval. Start: 07-10-2021 Cystoscopy David valdez Jr. Start: 01-08-2021 Extracorporeal shock wave lithotripsy of calculus of kidney David Pacheco Jr. Start: 11-06-2020 Extracorporeal shock wave lithotripsy of calculus of kidney David Pacheco Jr. Start: 08-09-2019 Cystoscopic removal of ureteric sten alice Pacheco Jr. Start: 07-22-2019 Cystoscopic insertio n of ureteric stent David Pacheco Jr. Comment on above: cysto, L stone extra ction, L stent placement Start: 07-12-2019 Placement of stent in cardiac condui t David Pacheco Jr. Start: 01-19-2019 DISCHARGE PATIENT EFREM MATSON Start: 01-19-2019 Glucose blood reagent strip EFREM MATSON Start: 01-19-2019 Glucose blood reagent strip EFREM MATSON Start: 01-19-2019 INITIATE OXYGEN THERAPY PROTOCOL EFREM MATSON Start: 01-18-2019 Glucose blood reagent strip EFREM MATSON Start: 01-18-2019 ACTIVITY TOLERATED Fide MATSON Start: 01-18-2019 AMBULATE PATIENT EFREM MATSON Start: 01-18-2019 DIET CARB CONTROL EFREM MATSON Start: 01-18-2019 FULL CODE EFREM Jasso Start: 01-18-2019 INITIATE OXYGEN THERAPY PROTOCOL EFREM MATSON Start: 01-18-2019 NEURO/VASCULAR CHECKS Fide MATSON Start: 01-18-2019 PLACE INTERMITTENT P NEUMATIC COMPRESSION DEVICE EFREM MATSON Start: 01-18-2019 VITAL SIGNS EFREM Jasso Start: 01-18-2019 PATIENT STATUS (FROM ED OR OR/PROCEDURAL) EFREM MATSON Start: 01-18-2019 TRANSFER PATIENT EFREM MATSON Start: 01-18-2019 Glucose blood reagent strip EFREM MATSON Start: 01-18-2019 Radex spine lumbosacral 2/3 views EFREM MATSON Start: 01-18-2019 Thromboplastin time partial plasma/whole blood EFREM MATSON Start: 01-18-2019 Calcium ionized EFREM Darling EWAYLA Start: 01-18-2019 Gluc bld gluc mntr d ev cleared fda spec home use EFREM MATSON Start: 01-18-2019 Potassium serum plasma/whole blood EFREM MATSON Start: 01-18-2019 Sodium serum plasma or whole blood EFREM MATSON Start: 01-18-2019 TYPE AND SCREEN EFREM TREVINO Start: 01-18-2019 Prothrombin time EFREM MATSON Start: 11-14-2014 Colonoscopy Jamil CHUNG Start: 07-06-2014 Cystoscopy and retrograde pyelograph y David Pacheco Jr. Start: 09-29-2009 Hemorrhoidectomy Alida l ANNAMARIE Cardiac catheterization Nicanor ael NILL Excision of lipoma Jamil ELIZAEBTH Extraction of cataract Heladio DE LUNA Angela filter, d evice (physical object) David Pacheco Jr. Tenmile filter, d evice (physical object) David Pacheco Jr. Hemorrhoidectomy David lyons Jr. History of operative procedure on knee David Pacheco Jr. History of operative procedure on lumbar spinal structure Jamil PLAZAPhong Removal of thrombus Jamil PLAZAPhong Repair of meniscus Jamil [place] CLARA Special back care Dvaid valdez Jr. Tonsillectomy David bradley Plan of Treatment Date Care Activity Detail Author Start: 10-30-2024 Diabetes Screening Diabetes Screenin g [facility] Start: 09-30-2023 ambulatory Ambulatory Facility:[facility] Start: 05-30-2023 Influenza vaccination Influenza Vacc ine (#1) [facility] Start: 2023 RSV Vaccine (1 - 1-d ose 60+ series) RSV Vaccine (1 - 1-dose 60+ series) [facility] Start: 09-29-2022 Depression Assessment Depression Ass essment [facility] Start: 2018 Prostate specific an tigen measurement Prostate Cancer Screening Discussion [facility] Start: 2013 Shingrix Vaccine (1 of 2) Adair grix Vaccine (1 of 2) [facility] Start: 2008 Screening for malign ant neoplasm of colon [facility] Start: 1998 Lipid panel Lipid Screening [facility] Start: 1982 Urine microalbumin profile DTaP,Tdap,Td Vaccine (1 - Tdap) [facility] Start: 1981 Hepatitis C screening Hepatitis C Sc reening [facility] Start: 1981 HIV screening HIV Screening [facility] Start: 1963 Covid-19 Vaccine (#1) Covid-19 Vacci ne (#1) [facility] Immunizations Immunization Date Immunization Notes Care Provider Renzo gatica 08-27-2017 influenza, unspecifi ed formulation EDGAR DANIELLE [facility] 08-27-2017 influenza virus vaccine, unspecified formulation Generic Provider [facility] 06-26-2016 influenza, unspecifi ed formulation EDGAR DANIELLE [facility] NEGATED: Highlighted row has not occurred!08-29-2023 influenza virus vaccine, unspecified formulation Jamil DE LUNA [facility] [place] Payers Date Payer Category Payer Medicare MEDICARE MEDICAR E A AND B [id number] 2017-Present [phone] [address] [address] [place] [address] Medicare [id number] 1963 Unknown [id number] 2.16.840.1.143452.3.579.2.175 1963 Unknown [id number] 2.16.840.1.904518.3.579.2.647 1963 Unknown [id number] 2.16.840.1.973221.3.579.2.593 1963 Unknown [id number] 2.16.840.1.033661.3.579.2.593 1963 Unknown [id number] 2.16.840.1.351693.3.579.2.593 1963 Unknown [id number] 2.16.840.1.019512.3.579.2.593 1963 Unknown [id number] 2.16.840.1.551281.3.579.2.593 1963 Unknown [id number] 2.16.840.1.857638.3.579.2.593 1963 Unknown [id number] 2.16.840.1.194112.3.579.2.593 1963 Unknown [id number] 2.16.840.1.850731.3.579.2.593 1963 Unknown [id number] 2.16.840.1.572138.3.579.2.593 1963 Unknown [id number] 2.16.840.1.958893.3.579.2.59 1963 Unknown [id number] 2.16.840.1.293192.3.579.2.593 1963 Unknown [id number] 2.16.840.1.279810.3.579.2.593 1963 Unknown [id number] 2.16.840.1.409649.3.579.2.593 1963 Unknown [id number] 2.16.840.1.685457.3.579.2.593 1963 Unknown [id number] 2.16.840.1.066883.3.579.2.593 1963 Unknown [id number] 2.16.840.1.716985.3.579.2.593 1963 Unknown [id number] 2.16.840.1.093719.3.579.2.593 1963 Unknown [id number] 2.16.840.1.195616.3.579.2.593 1963 Unknown [id number] 2.16.840.1.575385.3.579.2.593 1963 Unknown [id number] 2.16.840.1.046134.3.579.2.593 1963 Unknown [id number] 2.16.840.1.651083.3.579.2.593 1963 Unknown [id number] 2.16.840.1.493301.3.579.2.718 1963 Unknown [id number] 2.16.840.1.770544.3.579.2.727 1963 Unknown [id number] 2.16.840.1.476531.3.579.2.727 1963 Unknown [id number] 2.16.840.1.476306.3.579.2.727 1963 Unknown [id number] 2.16.840.1.403828.3.579.2.727 1963 Unknown [id number] 2.16.840.1.843105.3.579.2.727 1959 Medicare [id number] 1959 Unknown [id number] Social History Date Type Detail Facility Start: 08-08-2021 Tobacco smoking status Never s moked tobacco (finding) [facility] Tobacco smoking status Never [facility] Sex Assigned At Male [facility] Start: 03-12-2023 End: 08-29-2023 Tobacco smoking status Ex-smoker (finding) [facility] [place] Start: 10-29-2021 Alcohol intake Current drinke r of alcohol (finding) [facility] Start: 1965 Sex Assigned At Not on file [facility] Medical Equipment Procedure Code Equipment Code Equipment Origin al Text Equipment Identifier Dates FDA Start: 09-20-2021 FDA Start: 09-20-2021 FDA Start: 09-20-2021 CYSTOSCOPY URETEROSCOPY Spencer MATIAS MD 09/20/21 Unknown Ureter R FDA Start: 09-20-2021 CYSTOSCOPY URETEROSCOPY Spencer MATIAS MD 09/20/21 Unknown Ureter R FDA Start: 09-20-2021 CYSTOSCOPY URETEROSCOPY Spencer MATIAS MD 09/20/21 Unknown Ureter R FDA Start: 09-20-2021 Functional Status Date Assessment Result Facility 08-29-2023 Functional Status N/A [facility] 03-12-2023 Functional Status N/A [facility] 07-03-2022 Functional Status N/A [facility] Clinical Notes 08-27-2021 to 08-29-2023 Note Date & Type Note Facility 08-29-2023 Note Chief Complaint consultation for rectal bleeding HPI Staff 58 year old male presents on consultation from Dr. Caballero for rectal bleeding. Reports intermittent rectal bleeding for years. Blood is bright red and only with bowel movements. Reports blood in toilet water and on toilet tissue. Patient recently experienced an episode where he felt the need to defecate but only passed a large clot. Patient is on Coumadin; managed by PCP. He frequently strains for bowel movements. Denies rectal pain. Denies change in bowel habits. Last colonoscopy completed 10/2014 with internal hemorrhoids. History of Present Illness 58 yo male with h/o antiphospholipid antibody syndrome, on Coumadin, htn, hypercholesterolemia, bph, hypothyroidism, GERD, referred for rectal bleeding/clots; seen in February and symptoms had resolved, had episode of passing blood clot when INR was over 4; no changes in bms, does strain for bms frequently, some BRBPR with wiping; no abd pain, no N/V; on Celebrex and Coumadin daily, no asa, no SBE prophylaxis; last colonoscopy 2014 with small internal hemorrhoid; no abd operations, patient had 2 quadrant hemorrhoidectomy in 2009; no fmhx of GI malignancy or IBD; no tobacco use. Review of Systems PHQ Score Initial Depression Screen Score: 0 SCORE ROS - Provider Constitutional: no fever, no sweats, no weight loss. Eyes: yes glasses, no blurred vision, no visual loss. ENMT: no dentures, no hoarseness, no swallowing difficulties, no hearing loss, no ear infection(s), no nose bleeds. Cardiovascular: normal blood pressure, no chest pain, regular heartbeat, no heart murmur. Respiratory: no shortness of breath, no cough, no asthma, no wheezing. Gastrointestinal: no nausea, no vomiting, no diarrhea, no constipation, no blood in stool, no change in bowel habits, no abdominal pain, no hepatitis. Genitourinary: no kidney stones, no urine infection, no dysuria. Musculoskeletal: no pain, no weakness. Skin: no changing moles, no rash, no skin lumps. Neurologic: no seizures, no epilepsy, no headache. Psychiatric: no emotional or psychiatric problem. Heme/Lymph: no bleeding problems, no anemia, no blood clots, no transfusions. Allergy/Immunologic: no swollen lymph nodes/glands, no IV drug abuse. Other: Additional ROS info: Except as noted in the above Review of Systems and in the History of Present Illness, all other systems have been reviewed and are negative or noncontributory. Physical Exam Vitals & Measurements HR: 72(Peripheral) RR: 16 BP: 126/78 HT: 70 in HT: 177.8 cm WT: 106.8 kg WT: 234.96 lb BMI: 33.78 HEENT: normal conjunctiva, sclera clear, no scleral icterus, EOM intact, PERRLA, oral mucosa moist without lesions. Neck: trachea midline, no mass, symmetric, no thyromegaly or nodules, no adenopathy Respiratory: lungs CTA, respirations non labored. Cardiovascular: regular rate and rhythm, no murmur, no pedal edema or varicosities. Gastrointestinal: obese, soft, non distended, no tenderness, no masses, no palpable hernias, diastasis recti no, no hepatosplenomegaly; normal bs Lymphatic: no cervical adenopathy, no supraclavicular adenopathy. Musculoskeletal: normal gait, digits and nails without infection, nodes, cyanosis, clubbing. Skin: no rashes, no lesions, no ulcers, no subcutaneous nodules, induration. Psychiatric/Neuro: oriented to time, place, person, judgement normal, affect appropriate for age, insight intact, no focal deficits. Tests: review of old records completed , Discussed surgical options, risks, and possible complications with patient. Assessment/Plan 1. Rectal bleeding (K62.5: Hemorrhage of anus and rectum) plan colonoscopy under anesthesia; informed consent obtained; patient to hold Coumadin 5 days prior to procedure and have bridging with Lovenox, to be managed by Dr Caballero. 2. Anticoagulated (Z79.01: assisted (current) use of 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) see # 1 3. BMI 33.0-33.9,adult (Z68.33: Body mass index [BMI] 33.0-33.9, adult) recommend diet and exercise. Follow-up No qualifying data available Problem List/Past Medical History Ongoing Anticoagulated Antiphospholipid antibody syndrome Anxiety Asymptomatic microscopic hematuria Bilateral nephrolithiasis BMI 33.0-33.9,adult BPH without obstruction/lower urinary tract symptoms Coronary artery disease Diabetes Former tobacco use GERD (gastroesophageal reflux disease) Gross hematuria History of DVT (deep vein thrombosis) Hypercholesterolemia Hyperlipidemia Hypertension Hypothyroidism Kidney stone Lumbar radiculopathy Migraines Obesity Rectal bleeding Renal cyst Rheumatoid arthritis Ureteral stone Ureteral stone with hydronephrosis Vitamin D deficiency Historical Anxiety disorder Constipation Deep vein thrombosis Elevated cholesterol Enlarged prostate with urinary obstruction Flank pain Gastroesophageal reflux disease History of kidney stones Hydronephrosis with obstructing calculus Hyperten (more content not included)... [facility] Comment on above: Result Comment: Elec tronically Signed By: ANNAMARIE ISRAEL, Jamil Maldonado\Date and Time Signed: 08/29/23 14:39 EST 08-14-2023 Note [facility] Cardiology Clinic Note Chief Complaint: Patient here for 6 mo follow up CAD, hyperlipidemia, hypertension, and antiphospholipid syndrome (on warfarin). Does get intermittent chest pain, which he says depends on what he eats. HPI: Doris Luis is a 58 y.o. with h/o CAD, prior PCI, her in routine follow up He describes noncardiac pain soon after he eats or drinks. He has had exertional shortness of breath ever since he came down with COVID in 2019 accompanied by severe bilateral deep venous thrombosis and severe pulmonary emboli requiring mechanical thrombectomy. No orthopnea, no paroxysmal external dyspnea, no lower extremity edema He took himself off metformin due to side effects. He is currently on no medications for diabetes. Cardiology ROS: Review of Systems Cardiovascular: Positive for chest pain, dyspnea on exertion and leg swelling. Hematologic/Lymphatic: Bruises/bleeds easily. Musculoskeletal: Positive for back pain and joint pain. Gastrointestinal: Positive for constipation. All other systems reviewed and are negative. Past Medical History He has a past medical history of Coronary artery disease, Deep vein thrombosis (CMS/HCC), Diabetes mellitus (CMS/[facility]), Hyperlipidemia, and Hypertension. Surgical History He has a past surgical history that includes Cardiac catheterization; Coronary stent placement; and Inferior vena cava angioplasty / stenting. Social History He reports that he has quit smoking. His smoking use included cigarettes. He has never used smokeless tobacco. He reports current alcohol use. No history on file for drug use. Family History Family History Problem Relation Name Age of Onset Coronary artery disease Mother Coronary artery disease Father Allergies Penicillins Medications Current Outpatient Medications: amLODIPine (Norvasc) 5 mg tablet, Take 1 tablet (5 mg) by mouth in the morning., Disp: 90 tablet, Rfl: 3 celecoxib (CeleBREX) 200 mg capsule, Take 200 mg by mouth in the morning., Disp: , Rfl: lisinopril 30 mg tablet, Take 1 tablet (30 mg) by mouth in the morning., Disp: 90 tablet, Rfl: 3 metFORMIN (Glucophage) 500 mg tablet, Take 500 mg by mouth with breakfast., Disp: , Rfl: metoprolol tartrate (Lopressor) 50 mg tablet, Take 1 tablet (50 mg) by mouth in the morning and at bedtime., Disp: 180 tablet, Rfl: 3 omeprazole (PriLOSEC) [address] capsule, Take 20 mg by mouth in the morning., Disp: , Rfl: rosuvastatin (Crestor) 40 mg tablet, take 1 tablet by mouth once daily, Disp: 90 tablet, Rfl: 3 venlafaxine XR (Effexor-XR) 75 mg 24 hr capsule, Take 75 mg by mouth in the morning., Disp: , Rfl: warfarin (Coumadin) 4 mg tablet, TAKE 1 TAB BY MOUTH EVERY OTHER DAY (EXCEPT 5MG ON SUNDAYS), Disp: , Rfl: Last Recorded Vitals BP 124/82 (BP Location: Left arm, Patient Position: Sitting) Pulse 61 Ht 1.778 m (5' 10 ) Wt 105 kg (232 lb) SpO2 96% BMI 33.29 kg/m??? Physical Examination: GENERAL: alert and oriented x3, well developed, in no acute distress. HEAD: atraumatic, normocephalic. EYES: RANDA, EOMI. NECK: trachea midline, no JVD present, no carotid bruits present. CARDIAC: S1, S2 present. RRR. No murmur, rubs, or gallops. RESPIRATORY: CTAB, no increased effort of breathing, no rales, rhonchi, or wheezing. ABDOMEN: soft, nontender, nondistended. EXTREMITIES: no lower extremity edema, peripheral pulses are 2+ bilaterally. No rash/skin discoloration present. NEURO: strength/sensation equal and symmetric in bilateral upper and lower extremities. PSYCH: appropriate mood, affect, and judgement. Labs: 10/30/21 CBC stable- HGB 10.6 Renal function normal, K+ normal Last lab values have been reviewed CV Testin03/20/22 CVL FINAL IMPRESSIONS: 1. Moderate 3-vessel coronary artery disease. 2. Patent stent in the mid left anterior descending coronary artery. 3. Moderate, diffuse mid to distal left anterior descending stenosis. 4. Normal global left ventricular systolic function by noninvasive imaging. 5. Severe disease of a small caliber branching 1st diagonal that is jailed by the adjacent left anterior descending stent. RECOMMENDATIONS: 1. Aggressive cardiovascular risk factor modification. 2. Optimization of medical management; aspirin 81 mg will be added, increase statin to 40 mg of Crestor. Continue beta-apolinar, and angiotensin-converting enzyme inhibitor. We will add Imdur 30 mg a day for possible superimposed spasm. 3. Consider alternate etiologies for the patient's nocturnal pain, namely gastrointestinal. 02/20/22 Echo- Normal LVSF EF 65%, No significant valvular abnormalities Normal Rt sided pressures Pulmonary function test 02/05/2023: Impressions: Mild restrictive pattern in spirometry, confirmed with the mildly reduced TLC. Mild diffusion impairment. 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 [facility] 04-01-2023 Note Chief Complaint consultation for constipation HPI Staff 58 year old male presents on consultation from Dr. Caballero for constipation. Patient states constipation has resolved with increased water and fiber intake. He reports rectal pressure and tenesmus. Intermittent rectal bleeding with bowel movements with reported blood in toilet water and on tissue paper. Denies blood mixed in stool. Patient is taking Coumadin. No abdominal or rectal pain. Last colonoscopy completed 10/2014 with internal hemorrhoid. History of hemorrhoidectomy 01/2010. History of Present Illness 58 yo male with h/o antiphospholipid antibody syndrome, on chronic Coumadin therapy, htn, hypercholesterolemia, bph, DMII, referred for constipation and tenesmus; symptoms have resolved with increased fiber/water intake; did have some minimal rectal bleeding with wiping when he had to strain; no hematochezia or decreased caliber of stools; no hemorrhoid prolapse; h/o hemorrhoidectomy, last colonoscopy 2014 with internal hemorrhoids; patient requires bridging with Lovenox for any procedures; no rectal pain; no fmhx of GI malignancy or IBD. Review of Systems PHQ Score Initial Depression Screen Score: 0 ROS - Provider Constitutional: no fever, no sweats, no weight loss. Eyes: no glasses, no blurred vision, no visual loss. ENMT: no dentures, no hoarseness, no swallowing difficulties, no hearing loss, no ear infection(s), no nose bleeds. Cardiovascular: normal blood pressure, no chest pain, regular heartbeat, no heart murmur. Respiratory: no shortness of breath, no cough, no asthma, no wheezing. Gastrointestinal: no nausea, no vomiting, no diarrhea, no constipation, no blood in stool, no change in bowel habits, no abdominal pain, no hepatitis. Genitourinary: no kidney stones, no urine infection, no dysuria. Musculoskeletal: no pain, no weakness. Skin: no changing moles, no rash, no skin lumps. Neurologic: no seizures, no epilepsy, no headache. Psychiatric: no emotional or psychiatric problem. Heme/Lymph: no bleeding problems, no anemia, no blood clots, no transfusions. Allergy/Immunologic: no swollen lymph nodes/glands, no IV drug abuse. Other: Additional ROS info: Except as noted in the above Review of Systems and in the History of Present Illness, all other systems have been reviewed and are negative or noncontributory. Physical Exam Vitals & Measurements HR: 72(Peripheral) RR: 16 BP: 126/78 HT: 70 in HT: 177.8 cm WT: 105 kg WT: 231 lb BMI: 33.21 HEENT: normal conjunctiva, sclera clear, no scleral icterus, EOM intact, PERRLA, oral mucosa moist without lesions. Neck: trachea midline, no mass, symmetric, no thyromegaly or nodules, no adenopathy Respiratory: lungs CTA, respirations non labored. Cardiovascular: regular rate and rhythm, no murmur, no pedal edema or varicosities. Gastrointestinal: obese, soft, non distended, no tenderness, no masses, no palpable hernias, diastasis recti no, no hepatosplenomegaly; normal bs rectal: no masses or blood, no external hemorrhoids; no fissure. Lymphatic: no cervical adenopathy, no surpaclavicular adenopathy. Musculoskeletal: normal gait, digits and nails without infection, nodes, cyanosis, clubbing. Skin: no rashes, no lesions, no ulcers, no subcutaneous nodules, induration. Psychiatric/Neuro: oriented to time, place, person, judgement normal, affect appropriate for age, insight intact, no focal deficits. Tests: review of old records completed, Assessment/Plan 1. Change in bowel habit (R19.4: Change in bowel habit) resolved with increased fiber/water intake; patient due for colonoscopy in 2 years; will need Lovenox bridging; monitor for recurrent symptoms; if patient needs to go off Coumadin for some other reason/procedure; we can try to coordinate colonoscopy at that time; call with problems/questions. Follow-up No qualifying data available Problem List/Past Medical History Ongoing Anticoagulated Antiphospholipid antibody syndrome Anxiety Asymptomatic microscopic hematuria Bilateral nephrolithiasis BMI 33.0-33.9,adult BPH without obstruction/lower urinary tract symptoms Constipation Coronary artery disease Diabetes Gross hematuria History of embolism Hypercholesterolemia Hypertension Kidney stone Migraines Obesity Renal cyst Ureteral stone Ureteral stone with hydronephrosis Historical Anxiety disorder Deep vein thrombosis Elevated cholesterol Enlarged prostate with urinary obstruction Flank pain Gastroesophageal reflux disease History of kidney stones Hydronephrosis with obstructing calculus Hypertension Kidney stones Nephrolithiasis Renal calculus Procedure/Surgical History Fluoroscopy guided ESWL (extracorporeal shockwave lithotripsy) of calculus of left ureter (01/17/2022), Cystoscopy (09/20/2021), Cystoscopy (07/10/2021), ESWL of kidney (01/08/2021), ESWL of kidney (11/06/2020), Cystoscopic removal of ureteric stent (08/09/2019), Cystoscopic insertion (more content not included)... [facility] Comment on above: Result Comment: Elec tronically Signed By: ANNAMARIE ISRAEL, Jamil Maldonado\Date and Time Signed: 04/01/23 15:55 EDT 02-26-2023 Note Patient Education Ma terials Follows: Puncture Wound A puncture wound is an injury that is caused by a sharp, thin object that goes through (penetrates) your skin. Usually, a puncture wound does not leave a large opening in your skin, so it may not bleed a lot. However, when you get a puncture wound, dirt or other materials (foreign bodies) can be forced into your wound and can break off inside. This increases the chance of infection, such as tetanus. There are many sharp, pointed objects that can cause puncture wounds, including teeth, nails, splinters of glass, fishhooks, and needles. Treatment may include washing out the wound with a germ-free (sterile) salt-water solution, having the wound opened surgically to remove a foreign object, closing the wound with stitches (sutures), and covering the wound with antibiotic ointment and a bandage (dressing). Depending on what caused the injury, you may also need a tetanus shot or a rabies shot. Follow these instructions at home: Medicines ? Take or apply tldy-vqz-ahxbfgy and prescription medicines only as told by your health care provider. ? If you were prescribed an antibiotic medicine, take or apply it as told by your health care provider. Do not stop using the antibiotic even if your condition improves. Bathing ? Keep the dressing dry as told by your health care provider. ? Do not take baths, swim, or use a hot tub until your health care provider approves. Ask your health care provider if you may take showers. You may only be allowed to take sponge baths. Wound care ? There are many ways to close and cover a wound. For example, a wound can be closed with sutures, skin glue, or adhesive strips. Follow instructions from your health care provider about how to take care of your wound. Make sure you: ? Wash your hands with soap and water before and after you change your dressing. If soap and water are not available, use hand charging plug placer. ? Change your dressing as told by your health care provider. ? Leave sutures, skin glue, or adhesive strips in place. These skin closures may need to stay in place for 2 weeks or longer. If adhesive strip edges start to loosen and curl up, you may trim the loose edges. Do not remove adhesive strips completely unless your health care provider tells you to do that. ? Clean the wound as told by your health care provider. ? Do not scratch or pick at the wound. ? Check your wound every day for signs of infection. Check for: ? Redness, swelling, or pain. ? Fluid or blood. ? Warmth. ? Pus or a bad smell. General instructions ? Raise (elevate) the injured area above the level of your heart while you are sitting or lying down. ? If your puncture wound is in your foot, ask your health care provider if you need to avoid putting weight on your foot and for how long. Do not use the injured limb to support your body weight until your health care provider says that you can. Use crutches as told by your health care provider. ? Keep all follow-up visits as told by your health care provider. This is important. Contact a health care provider if: ? You received a tetanus shot and you have swelling, severe pain, redness, or bleeding at the injection site. ? You have a fever. ? Your sutures come out. ? You notice a bad smell coming from your wound or your dressing. ? You notice something coming out of your wound, such as wood or glass. ? Your pain is not controlled with medicine. ? You have increased redness, swelling, or pain at the site of your wound. ? You have fluid, blood, or pus coming from your wound. ? You notice a change in the color of your skin near your wound. ? You need to change the dressing frequently due to fluid, blood, or pus draining from your wound. ? You develop a new rash. ? You develop numbness around your wound. ? You have warmth around your wound. Get help right away if: ? You develop severe swelling around your wound. ? Your pain suddenly increases and is severe. ? You develop painful skin lumps. ? You have a red streak going away from your wound. ? The wound is on your hand or foot and you: ? Cannot properly move a finger or toe. ? Notice that your fingers or toes look pale or bluish. Summary ? A puncture wound is an injury that is caused by a sharp, thin object that goes through (penetrates) your skin. ? Treatment may include washing out the wound, having the wound opened surgically to remove a foreign object, closing the wound with stitches (sutures), and covering the wound with antibiotic ointment and a bandage (dressing). ? Follow instructions from your health care provider about how to take care of your wound. ? Contact a health care provider if you have increased redness, swelling, or pain at the site of your wound. ? Keep all follow-up visits as told by your health care provider. This is important. This information is not intended to replace advice given to you by your health (more content not included)... [facility] 01-31-2023 Note Will send pt to pulm onology for evaluation and PFT's Reviewed recent echo 01/2022 and normal EF- LVSF; no significant valvular abnormalities and rt sided pressures. [facility] 01-31-2023 Note Sending for routine annual labs today in light he remains fasting, will add A1C to labs to assess glycemic management [facility] 01-31-2023 Note Hypertension is 130/ 91- States at home b/p is typically well controlled Continue all meds [facility] 01-31-2023 Note [facility] CARDIOLOGY PROGR ESS NOTE HPI: Doris Luis is a 57 y.o. 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 Admits continued shortness of breath with exertion- carrying items, bending over to seed cone picker items, and with exercise. Denied orthopnea, palpitations, chest pain. Review of Systems Constitutional: Negative. Respiratory: Positive for shortness of breath. Cardiovascular: Negative. Neurological: Negative. All other systems reviewed and are negative. Visit Vitals BP (!) 130/91 (BP Location: Right arm, Patient Position: Sitting) Pulse 57 Ht 1.778 m (5' 10 ) Wt 107 kg (236 lb) SpO2 96% BMI 33.86 kg/m??? Smoking Status Former BSA 2.3 m??? Allergies Allergen Reactions Penicillins Hives Medications: Current Outpatient Medications on File Prior to Visit Medication Sig Dispense Refill amLODIPine (Norvasc) 5 mg tablet Take 1 tablet by mouth in the morning. celecoxib (CeleBREX) 200 mg capsule Take 200 mg by mouth in the morning. lisinopril 30 mg tablet Take 1 tablet (30 mg) by mouth in the morning. 90 tablet 3 metFORMIN (Glucophage) 500 mg tablet Take 500 mg by mouth with breakfast. metoprolol tartrate (Lopressor) 50 mg tablet take 1 tablet by mouth twice a day for 90 DAYS omeprazole (PriLOSEC) [address] capsule Take 20 mg by mouth in the morning. rosuvastatin (Crestor) 40 mg tablet Take 40 mg by mouth in the morning. venlafaxine XR (Effexor-XR) 75 mg 24 hr capsule Take 75 mg by mouth in the morning. warfarin (Coumadin) 4 mg tablet TAKE 1 TAB BY MOUTH EVERY OTHER DAY (EXCEPT 5MG ON SUNDAYS) [DISCONTINUED] aspirin 81 mg EC tablet Take 81 mg by mouth in the morning. [DISCONTINUED] lisinopril 30 mg tablet Take 30 mg by mouth in the morning. [DISCONTINUED] rosuvastatin (Crestor) 10 mg tablet No current facility-administered medications on file prior to visit. Physical Exam: Constitutional: Appearance: Normal appearance. Without apparent distress, obese HENT: Head: Normocephalic and atraumatic. Nose: Nose normal. Mouth/Throat: Mouth: Mucous membranes are moist. Eyes: Extraocular Movements: Extraocular movements intact. Conjunctiva/sclera: Conjunctivae normal. Neck: Vascular: No JVD. Cardiovascular: Rate and Rhythm: Normal rate and regular rhythm. Pulses: Dorsalis pedis pulses are 3 on the right side and 3on the left side. Posterior tibial pulses are 3 on the right side and 3 on the left side. Heart sounds: Normal heart sounds, S1 normal and S2 normal. Pulmonary: Effort: Pulmonary effort is normal. Breath sounds: Normal breath sounds. Abdominal: General: Bowel sounds are normal. Palpations: Abdomen is soft. Musculoskeletal: General: Normal range of motion. Cervical back: Normal range of motion. Right lower leg: No edema. Left lower leg: No edema. Skin: General: Skin is warm and dry. Capillary Refill: Capillary refill takes less than 2 seconds. Neurological: General: No focal deficit present. Mental Status: alert and oriented to person, place, and time. Psychiatric: Mood and Affect: Mood normal. Behavior: Behavior normal. Thought Content: Thought content normal. Judgment: Judgment normal. Labs: 10/30/21 CBC stable- HGB 10.6 Renal function normal, K+ normal Last lab values have been reviewed [facility]in03/20/22 CVL FINAL IMPRESSIONS: 1. Moderate 3-vessel coronary artery disease. 2. Patent stent in the mid left anterior descending coronary artery. 3. Moderate, diffuse mid to distal left anterior descending stenosis. 4. Normal global left ventricular systolic function by noninvasive imaging. 5. Severe disease of a small caliber branching 1st diagonal that is jailed by the adjacent left anterior descending stent. RECOMMENDATIONS: 1. Aggressive cardiovascular risk factor modification. 2. Optimization of medical management; aspirin 81 mg will be added, increase statin to 40 mg of Crestor. Continue beta-apolinar, and angiotensin-converting enzyme inhibitor. We will add Imdur 30 mg a day for possible superimposed spasm. 3. Consider alternate etiologies for the patient's nocturnal pain, namely gastrointestinal. 02/20/22 Echo- Normal LVSF EF 65%, No significant valvular abnormalities Normal Rt sided pressures Assessment/Plan: Coronary artery disease involving enterprise coronary artery of enterprise heart without angina pectoris Coronary artery disease is stable without any concerning symptoms Continue GDMT- ASA, crestor, metoprolol, lisinopril continue risk factor modifications- heart healthy diet, regular exercise as tolerated and continue all medications. Coronary artery spasm (CMS/HCC) Continue amlodipine Mixed hyperlipidemia Continue crestor Script for lipid level and liver function provided to pt- will have drawn today Antiphospholipid syndrome (CMS/HCC) Remains on warfarin anticoagulation (more content not included)... [facility] 01-31-2023 Note Patient here for 10 mo follow up CAD, hypertension, hyperlipidemia, and hx of DVT. Had renal US 2 weeks ago. He thinks amlodipine makes him constipated. C/o increased SOB with heavy exertion. He gets a little lightheaded with the SOB. Denies chest pain. Says he can breathe fine while ambulating. Denies bleeding on warfarin. Review of Systems Cardiovascular: Positive for dyspnea on exertion and leg swelling. Hematologic/Lymphatic: Bruises/bleeds easily. Musculoskeletal: Positive for back pain and joint pain. Gastrointestinal: Positive for constipation. All other systems reviewed and are negative. [facility] 01-31-2023 Note Remains on warfarin anticoagulation [facility] 01-31-2023 Note Continue crestor Script for lipid level and liver function provided to pt- will have drawn today [facility] 01-31-2023 Note Continue amlodipine [facility] 01-31-2023 Note Coronary artery dise ase is stable without any concerning symptoms Continue GDMT- ASA, crestor, metoprolol, lisinopril continue risk factor modifications- heart healthy diet, regular exercise as tolerated and continue all medications. [facility] 07-03-2022 Hospital Discharge instructions Patient Education 07/03/2022 13:32:37 Kidney Stones, Exvs-ak-Fain Kidney Stones Kidney stones are rock-like masses that form inside of the kidneys. Kidneys are organs that make pee (urine). A kidney stone may move into other parts of the urinary tract, including: The tubes that connect the kidneys to the bladder (ureters). The bladder. The tube that carries urine out of the body (urethra). Kidney stones can cause very bad pain and can block the flow of pee. The stone usually leaves your body (passes) through your pee. You may need to have a doctor take out the stone. What are the causes? Kidney stones may be caused by: A condition in which certain glands make too much parathyroid hormone (primary hyperparathyroidism). A buildup of a type of crystals in the bladder made of a chemical called uric acid. The body makes uric acid when you eat certain foods. Narrowing (stricture) of one or both of the ureters. A kidney blockage that you were born with. Past surgery on the kidney or the ureters, such as gastric bypass surgery. What increases the risk? You are more likely to develop this condition if: You have had a kidney stone in the past. You have a family history of kidney stones. You do not drink enough water. You eat a diet that is high in protein, salt (sodium), or sugar. You are overweight or very overweight (obese). What are the signs or symptoms? Symptoms of a kidney stone may include: Pain in the side of the belly, right below the ribs (flank pain). Pain usually spreads (radiates) to the groin. Needing to pee often or right away (urgently). Pain when going pee (urinating). Blood in your pee (hematuria). Feeling like you may vomit (nauseous). Vomiting. Fever and chills. How is this treated? Treatment depends on the size, location, and makeup of the kidney stones. The stones will often pass out of the body through peeing. You may need to: Drink more fluid to help pass the stone. In some cases, you may be given fluids through an IV tube put into one of your veins at the hospital. Take medicine for pain. Make changes in your diet to help keep kidney stones from coming back. Sometimes, medical procedures are needed to remove a kidney stone. This may involve: A procedure to break up kidney stones using a beam of light (laser) or shock waves. Surgery to remove the kidney stones. Follow these instructions at home: Medicines Take jcqk-gom-kirzgwz and prescription medicines only as told by your doctor. Ask your doctor if the medicine prescribed to you requires you to avoid driving or using heavy machinery. Eating and drinking Drink enough fluid to keep your pee pale yellow. You may be told to drink at least 8 10 glasses of water each day. This will help you pass the stone. If told by your doctor, change your diet. This may include: ?Limiting how much salt you eat. ?Eating more fruits and vegetables. ?Limiting how much meat, poultry, fish, and eggs you eat. Follow instructions from your doctor about eating or drinking restrictions. General instructions Collect pee samples as told by your doctor. You may need to collect a pee sample: ?24 hours after a stone comes out. ?8 12 weeks after a stone comes out, and every 6 12 months after that. Strain your pee every time you pee (urinate), for as long as told. Use the strainer that your doctor recommends. Do not throw out the stone. Keep it so that it can be tested by your doctor. Keep all follow-up visits as told by your doctor. This is important. You may need follow-up tests. How is this prevented? To prevent another kidney stone: Drink enough fluid to keep your pee pale yellow. This is the best way to prevent kidney stones. Eat healthy foods. Avoid certain foods as told by your doctor. You may be told to eat less protein. Stay at a healthy weight. Where to find more information National Kidney Foundation (NKF): www.kidney.org [facility] [facility] ([facility]): www.urologyhealth.org Contact a doctor if: You have pain that gets worse or does not get better with medicine. Get help right away if: You have a fever or chills. You get very bad pain. You get new pain in your belly (abdomen). You pass out (faint). You cannot pee. Summary Kidney stones are rock-like masses that form inside of the kidneys. Kidney stones can cause very bad pain and can block the flow of pee. The stones will often pass out of the body through peeing. Drink enough fluid to keep your pee pale yellow. This information is not intended to replace advice given to you by your health care provider. Make sure you discuss any questions you have with your health care provider. Document Released: 03/03/2009 Document Revised: 02/01/2020 Document Reviewed: 02/01/2020 [employer] Patient Education 2020 [employer]. 07/03/2022 13:32:36 Calorie Counting for Weight Loss Calorie Counting for Weight Loss Calories are units of energy. Your body needs a certain amount of calories from food to keep you going throughout the day. When you eat more calories than your body needs, your body stores the extra calories as fat. When you eat fewer calories than your body needs, your body moreno fat to get the energy it needs. Calorie counting means keeping track of how many calories you eat and drink each day. Calorie counting can be helpful if you need to lose weight. If you make sure to eat fewer calories than your body needs, you should lose weight. Ask your health care provider what a healthy weight is for you. For calorie counting to work, you will need to eat the right number of calories in a day in order to lose a healthy amount of weight per week. A dietitian can help you determine how many calories you need in a day and will give you suggestions on how to reach your calorie goal. A healthy amount of weight to lose per week is usually 1 2 lb (0.5 0.9 kg). This usually means that your daily calorie intake should be reduced by 500 750 calories. Eating 1,200 1,500 calories per day can help most women lose weight. Eating 1,500 1,800 calories per day can help most men lose weight. What is my plan? My goal is to have calories per day. If I have this many calories per day, I should lose around pounds per week. What do I need to know about calorie counting? In order to meet your daily calorie goal, you will need to: Find out how many calories are in each food you would like to eat. Try to do this before you eat. Decide how much of the food you plan to eat. Write down what you ate and how many calories it had. Doing this is called keeping a food log. To successfully lose weight, it is important to balance calorie counting with a healthy lifestyle that includes regular activity. Aim for 150 minutes of moderate exercise (such as walking) or 75 minutes of vigorous exercise (such as running) each week. Where do I find calorie information? The number of calories in a food can be found on a Nutrition Facts label. If a food does not have a Nutrition Facts label, try to look up the calories online or ask your dietitian for help. Remember that calories are listed per serving. If you choose to have more than one serving of a food, you will have to multiply the calories per serving by the amount of servings you plan to eat. For example, the label on a package of bread might say that a serving size is 1 slice and that there are 90 calories in a serving. If you eat 1 slice, you will have eaten 90 calories. If you eat 2 slices, you will have eaten 180 calories. How do I keep a food log? Immediately after each meal, record the following information in your food log: What you ate. Don't forget to include toppings, sauces, and other extras on the food. How much you ate. This can be measured in cups, ounces, or number of items. How many calories each food and drink had. The total number of calories in the meal. Keep your food log near you, such as in a small notebook in your pocket, or use a mobile michael or website. Some programs will calculate calories for you and show you how many calories you have left for the day to meet your goal. What are some calorie counting tips? Use your calories on foods and drinks that will fill you up and not leave you hungry: ?Some examples of foods that fill you up are nuts and nut butters, vegetables, lean proteins, and high-fiber foods like whole grains. High-fiber foods are foods with more than 5 g fiber per serving. ?Drinks such as sodas, specialty coffee drinks, alcohol, and juices have a lot of calories, yet do not fill you up. Eat nutritious foods and avoid empty calories. Empty calories are calories you get from foods or beverages that do not have many vitamins or protein, such as candy, sweets, and soda. It is better to have a nutritious high-calorie food (such as an avocado) than a food with few nutrients (such as a bag of chips). Know how many calories are in the foods you eat most often. This will help you calculate calorie counts faster. Pay attention to calories in drinks. Low-calorie drinks include water and unsweetened drinks. Pay attention to nutrition labels for low fat or fat free foods. These foods sometimes have the same amount of calories or more calories than the full fat versions. They also often have added sugar, starch, or salt, to make up for flavor that was removed with the fat. Find a way of tracking calories that works for you. Get creative. Try different apps or programs if writing down calories does not work for you. What are some portion control tips? Know how many calories are in a serving. This will help you know how many servings of a certain food you can have. Use a measuring cup to measure serving sizes. You could also try weighing out portions on a kitchen scale. With time, you will be able to estimate serving sizes for some foods. Take some time to put servings of different foods on your favorite plates, bowls, and cups so you know what a serving looks like. Try not to eat straight from a bag or box. Doing this can lead to overeating. Put the amount you would like to eat in a cup or on a plate to make sure you are eating the right portion. Use smaller plates, glasses, and bowls to prevent overeating. Try not to multitask (for example, watch TV or use your computer) while eating. If it is time to eat, sit down at a table and enjoy your food. This will help you to know when you are full. It will also help you to be aware of what you are eating and how much you are eating. What are tips for following this plan? Reading food labels Check the calorie count compared to the serving size. The serving size may be smaller than what you are used to eating. Check the source of the calories. Make sure the food you are eating is high in vitamins and protein and low in saturated and trans fats. Shopping Read nutrition labels while you shop. This will help you make healthy decisions before you decide to purchase your food. Make a grocery list and stick to it. Cooking Try to cook your favorite foods in a healthier way. For example, try baking instead of frying. Use low-fat dairy products. Meal planning Use more fruits and vegetables. Half of your plate should be fruits and vegetables. Include lean proteins like poultry and fish. How do I count calories when eating out? Ask for smaller portion sizes. Consider sharing an entree and sides instead of getting your own entree. If you get your own entree, eat only half. Ask for a box at the beginning of your meal and put the rest of your entree in it so you are not tempted to eat it. If calories are listed on the menu, choose the lower calorie options. Choose dishes that include vegetables, fruits, whole grains, low-fat dairy products, and lean protein. Choose items that are boiled, broiled, grilled, or steamed. Stay away from items that are buttered, battered, fried, or served with cream sauce. Items labeled crispy are usually fried, unless stated otherwise. Choose water, low-fat milk, unsweetened iced tea, or other drinks without added sugar. If you want an alcoholic beverage, choose a lower calorie option such as a glass of wine or light beer. Ask for dressings, sauces, and syrups on the side. These are usually high in calories, so you should limit the amount you eat. If you want a salad, choose a garden salad and ask for grilled meats. Avoid extra toppings like stewart, cheese, or fried items. Ask for the dressing on the side, or ask for olive oil and vinegar or lemon to use as dressing. Estimate how many servings of a food you are given. For example, a serving of cooked rice is cup or about the size of half a baseball. Knowing serving sizes will help you be aware of how much food you are eating at restaurants. The list below tells you how big or small some common portion sizes are based on everyday objects: ?1 oz 4 stacked dice. ?3 oz 1 deck of cards. ?1 tsp 1 . ?1 Tbsp a ping-pong ball. ?2 Tbsp 1 ping-pong ball. ? cup baseball. ?1 cup 1 baseball. Summary Calorie counting means keeping track of how many calories you eat and drink each day. If you eat fewer calories than your body needs, you should lose weight. A healthy amount of weight to lose per week is usually 1 2 lb (0.5 0.9 kg). This usually means reducing your daily calorie intake by 500 750 calories. The number of calories in a food can be found on a Nutrition Facts label. If a food does not have a Nutrition Facts label, try to look up the calories online or ask your dietitian for help. Use your calories on foods and drinks that will fill you up, and not on foods and drinks that will leave you hungry. Use smaller plates, glasses, and bowls to prevent overeating. This information is not intended to replace advice given to you by your health care provider. Make sure you discuss any questions you have with your health care provider. Document Released: 09/15/2006 Document Revised: 06/04/2019 Document Reviewed: 08/15/2017 ThisNext Patient Education [employer]. Follow Up Care 06/26/2021 10:22:59 With:ELIJAH ALLEN, EDGAR Paniagua, URL Address: [address] [place] [address] When: Unknown [facility] 07-03-2022 Evaluation + Plan note Diagnostic Tests PendingPSA Total 07/03/22 [facility] 01-17-2022 Evaluation + Plan note Extrac jing from: Title:ANES POSTOP MAC/GEN NOTE Author:Fabián Robertson JR Date:01/17/22 Plan Transfer/ Discharge: Patient can be discharged from PACU when criteria met. Condition good. Extracted from: Title:ANES PREOP GEN ADULT NOTE Author:Fabián Turcios JR, DO Date:01/17/22 Plan [place] [employer]hesi[employer] (ASA) physical status classification: Class III. Anesthetic Preoperative Plan Anesthesia: General. . Anesthetic plan, risks, benefits, and alternatives discussed with the patient and/or family. Pt. and/or family present and agree to proceed as planned.. Discussed the importance of abstaining from tobacco products, and offered counseling if desired. Future Appointments Appointment Date:2022 10:45:00 AM Scheduled Provider:David Pacheco Jr., MD [place] [place] [facility] [place] Appointment Type:URO Office Visit [facility]04-21-2022 Hospital Discharge instructions Patient Education 01/17/2022 11:37:55 [facility] - Cystoscopy Discharge Instructions (Custom) Voiding after the procedure: there may be some pain, burning, urgency, frequency and blood tinged urine following the procedure. These symptoms usually resolve within 2-5 days. Drink the amount of fluid it takes to keep the urine pink to yellow or clear in color. Drinking enough water and fluids will help to ease any discomfort after your procedure. If you are having problems that seem out of the ordinary, please call. If unable to contact your physician and you feel it is an emergency, go to the nearest emergency room or call 911 Diet you may resume your normal diet. Activity you may resume your normal activities Call if you have a fever over 100 degrees. 01/17/2022 11:37:55 Post Op Patient Instructions - FT (CUSTOM) Follow Up Care 12/31/2021 11:37:23 With:EDGAR DANIELLE Address: [address] [place], [place] [address] [address] Business (1) When:6 weeks Comments:KUB x-ray with next visit. [facility]03-29-2022 Hospital Discharge instructions Patient Education 12/25/2021 09:52:56 Benign Prostatic Hyperplasia Benign Prostatic Hyperplasia Benign prostatic hyperplasia (BPH) is an enlarged prostate gland that is caused by the normal agingprocess and not by cancer. The prostate is a walnut-sized gland that is involved in the production of semen. It is located in front of the rectum and below the bladder. The bladder stores urine and the urethra is the tube that carries the urine out of the body. The prostate may get bigger as a man gets older. An enlarged prostate can press on the urethra. This can make it harder to pass urine. The build-up of urine in the bladder can cause infection. Back pressure and infection may progress to bladder damage and kidney (renal) failure. What are the causes? This condition is part of a normal aging process. However, not all men develop problems from this condition. If the prostate enlarges away from the urethra, urine flow will not be blocked. If it enlarges toward the urethra and compresses it, there will be problems passing urine. What increases the risk? This condition is more likely to develop in men over the age of 50 years. What are the signs or symptoms? Symptoms of this condition include: Getting up often during the night to urinate. Needing to urinate frequently during the day. Difficulty starting urine flow. Decrease in size and strength of your urine stream. Leaking (dribbling) after urinating. Inability to pass urine. This needs immediate treatment. Inability to completely empty your bladder. Pain when you pass urine. This is more common if there is also an infection. Urinary tract infection (UTI). How is this diagnosed? This condition is diagnosed based on your medical history, a physical exam, and your symptoms. Tests will also be done, such as: A post-void bladder scan. This measures any amount of urine that may remain in your bladder after you finish urinating. A digital rectal exam. In a rectal exam, your health care provider checks your prostate by putting a lubricated, gloved finger into your rectum to feel the back of your prostate gland. This exam detects the size of your gland and any abnormal lumps or growths. An exam of your urine (urinalysis). A prostate specific antigen (PSA) screening. This is a blood test used to screen for prostate cancer. An ultrasound. This test uses sound waves to electronically produce a picture of your prostate gland. Your health care provider may refer you to a specialist in kidney and prostate diseases (urologist). How is this treated? Once symptoms begin, your health care provider will monitor your condition (active surveillance or watchful waiting). Treatment for this condition will depend on the severity of your condition. Treatment may include: Observation and yearly exams. This may be the only treatment needed if your condition and symptoms are mild. Medicines to relieve your symptoms, including: ?Medicines to shrink the prostate. ?Medicines to relax the muscle of the prostate. Surgery in severe cases. Surgery may include: ?Prostatectomy. In this procedure, the prostate tissue is removed completely through an open incision or with a laparoscope or robotics. ?Transurethral resection of the prostate (TURP). In this procedure, a tool is inserted through the opening at the tip of the penis (urethra). It is used to cut away tissue of the inner core of the prostate. The pieces are removed through the same opening of the penis. This removes the blockage. ?Transurethral incision (TUIP). In this procedure, small cuts are made in the prostate. This lessens the prostate's pressure on the urethra. ?Transurethral microwave thermotherapy (TUMT). This procedure uses microwaves to create heat. The heat destroys and removes a small amount of prostate tissue. ?Transurethral needle ablation (TUNA). This procedure uses radio frequencies to destroy and remove a small amount of prostate tissue. ?Interstitial laser coagulation (ILC). This procedure uses a laser to destroy and remove a small amount of prostate tissue. ?Transurethral electrovaporization (TUVP). This procedure uses electrodes to destroy and remove a small amount of prostate tissue. ?Prostatic urethral lift. This procedure inserts an implant to push the lobes of the prostate away from the urethra. Follow these instructions at home: Take [id number] and prescription medicines only as told by your health care provider. Monitor your symptoms for any changes. Contact your health care provider with any changes. Avoid drinking large amounts of liquid before going to bed or out in public. Avoid or reduce how much caffeine or alcohol you drink. Give yourself time when you urinate. Keep all follow-up visits as told by your health care provider. This is important. Contact a health care provider if: You have unexplained back pain. Your symptoms do not get better with treatment. You develop side effects from the medicine you are taking. Your urine becomes very dark or has a bad smell. Your lower abdomen becomes distended and you have trouble passing your urine. Get help right away if: You have a fever or chills. You suddenly cannot urinate. You feel lightheaded, or very dizzy, or you faint. There are large amounts of blood or clots in the urine. Your urinary problems become hard to manage. You develop moderate to severe low back or flank pain. The flank is the side of your body between the ribs and the hip. These symptoms may represent a serious problem that is an emergency. Do not wait to see if the symptoms will go away. Get medical help right away. Call your local emergency services (911 in the [place] Do not drive yourself to the hospital. Summary Benign prostatic hyperplasia (BPH) is an enlarged prostate that is caused by the normal aging process and not by cancer. An enlarged prostate can press on the urethra. This can make it hard to pass urine. This condition is part of a normal aging process and is more likely to develop in men over the age of 50 years. Get help right away if you suddenly cannot urinate. This information is not intended to replace advice given to you by your health care provider. Make sure you discuss any questions you have with your health care provider. Document Released: 09/15/2006 Document Revised: 08/10/2019 Document Reviewed: 10/20/2017 ThisNext Patient Education 2020 [employer]. Follow Up Care 12/24/2021 14:06:11 With:Junior Mccollum MD, David Darling [facility] Address: When: Unknown Comments:[facility] NoteHNO ID: [id number] Author: Tracey Eagle MD Service: ? Author Type: Physician Type: Progress Notes Filed: 08/27/2021 10:02 AM Note Text: [facility] [place] Patient: Doris Luis Provider Tracey Eagle MD : 1965 Location: [facility] Date of Service: August 27, 2021 Referring Provider: Noe Caballero MD PCP: Noe Caballero MD NOTE: After obtaining patient's consent, this visit was conducted via a virtual Visit platform using EMR review and Video call with the patient in an effort to minimize unnecessary contact during the COVID19 pandemic Reason for Consultation and Chief Complaint: Doris Luis is a 56 year old year old male who is being seen at the request of Dr. Caballero for further evaluation and management of Nephrolithiasis. The findings AND recommendations will be communicated back to the referring physician via the EMR (or fax). ASSESSMENT: - recurrent nephrolithiasis - right ureteral stone, s/p stent placement (per patient - no imaging available to review) PLAN - proceed with surgery on 09/20 as planned at local center The patient decided to proceed with URS with his local urologist, and was given the opportunity to have all questions answered and appeared to be satisfied with our discussion. I have confirmed and edited as necessary, the PFS and ROS obtained by others. Lorraine Eagle MD Medical Decision Making: Problems: Moderate: New problem with uncertain prognosis Medical Decision Making Level: 2 - Straightforward HPI: Referred by PCP for stone and stent removal. Local urologist was supposed to operate August 02 but patient had covid 4.5 weeks ago. Anesthesia team there won't operate until Sep 20. Stone is lodged in the ureter per patient. No imaging on record. Gave pt fax and address to have imaging sent to. Current symptoms: Yes Symptom Description: Pain Location: Flank Side: right Intensity of pain:6 Quality:constant Other symptoms: Fevers: No Chills: No Nausea: No Vomiting: No LUTS: Dysuria: No Gross Hematuria: Yes Frequency: Yes Urgency: Yes PAST STONE HISTORY: Yes Date/year of first Episode: 2013 No. Of stones passed: Fragments from after ESWL Prior 24hr urine: n/a Stone analysis: pt unsure Prior stone related surgery: Yes No. Of prior Shock Wave lithotripsy: R ESWL 01/08/21, L ESWL 11/06/20 No. Of prior Ureteroscopy: R URS w/stent 07/10/21 Cystoscopy w/ stent insertion 07/22/19 B/L RG pyelogram Lt Ureteroscopic stone extraction 07/06/14 Current stone related Medications: Yes, K-citrate: No Hydrochlorothiazide/Chlorthalidone:No Allopurinol:No Topamax: No Vitamin D: Yes Other: Hyoscyamine Family history of (urinary) stone disease - No LITHOLINK: No results for input(s): LUPH, LUCAL, LUCIT, LUOXA, LUURIC, LUVOL, LSCAO, LSCAP, LSURIC, LUCL, DRU, MILTON, LUUREA, LUAM, LUMAG, LUPHOS, LUPCR, LUCREA, LUCRKBW, LUCAKBW, LUCACREA, LUCREACL, LWK, LUSUL in the last [id number] hours. OTHER UROLOGIC HISTORY: - Kidney/Bladder/Prostate/Testis cancer: No Occupation - retired; prior worker with [employer] REVIEW OF SYSTEMS: Weight Loss: Yes, lost 15 lbs due to having Covid and with stent in place Endocrine (DM, thyroid) - Yes, DM Neuro - History of CVA -No Cardiovascular- Yes, cardiac stent placed 3 years ago, hx DVT Anticoagulation meds - Yes, Coumadin Respiratory- No Gastrointestinal- No Genitourinary- as above Musculoskeletal: Arthritis Yes, RA History of gout No Past history and review of systems completed by Clarice Canas RN RELEVANT IMAGING STUDIES (most recent): Local imaging unavailable Imaging review pending LABS/INVESTIGATIONS: No results found for: CREAT No results found for: HB, HCT, WBC No results found for: PSA, PSAPER HISTORIES No family history on file. No past medical history on file. No past surgical history on file. Social History Tobacco Use - Smoking status: Not on file - Smokeless tobacco: Not on file Substance Use Topics - Alcohol use: Not on file - Drug use: Not on file ALLERGIES Not on File No current outpatient medications on file. No current facility-administered medications for this visit[facility] Future Appointments Appointment Date:2022 10:45:00 AM Scheduled Provider:David Pacheco Jr., MD Location:[facility] Appointment Type:URO Office Visit [facility] evaluation + Plan note Future Appointments Appointment Date:01/17/2022 10:00:00 AM Scheduled Provider: Location:[facility] Appointment Type:Surgery FT Appointment Date:2022 10:45:00 AM Scheduled Provider:David Pacheco Jr., MD Location:[facility]ment [facility] Future Appointments Appointment Date:08/26/2023 10:00:00 AM Scheduled Provider:EDGAR DANIELLE PA-C Location:[facility] Appointment Type:URO Office Visit [facility] [place] Evaluation + Plan note Future Appointments Appointment Date:09/30/2023 02:30:00 PM Scheduled Provider:EDGAR DANIELLE PA-C Location:[facility] Appointment Type:URO Office Visit [facility] [place] Hospital course Narrative No data available for this section [facility] Hospital Discharge instructions No data available for this section [facility] No data available for this section [facility] Summary Purpose Family History No Family History Records FoundNo Family History Records FoundNo Family History Records FoundNo Family History Records FoundNo Family History Records FoundNo Family History Records Found No data available for this section No Family History Records Found Advance Directives No Advanced Directives Records FoundNo Advanced Directives Records FoundNo Advanced Directives Records FoundNo Advanced Directives Records FoundNo Advanced Directives Records FoundNo Advanced Directives Records FoundNo Advanced Directives Records Found Additional Source Comments (unrecognized sect ion and content) No Status Records FoundNo Status Records FoundNo Status Records FoundNo Status Records FoundNo Status Records FoundNo Status Records FoundNo Status Records Found INFORMATION SOURCE (unrecogn ized section and content) DATE CREATED AUTHOR 01/21/2019 [facility] DATE CREATED AUTHOR AUTHOR'S ORGANIZ ATION 11/06/2021 [facility] DATE CREATED AUTHOR AUTHOR'S ORGANIZ ATION 04/08/2022 [facility] DATE CREATED AUTHOR AUTHOR'S ORGANIZ ATION 02/08/2023 [facility] DATE CREATED AUTHOR AUTHOR'S ORGANIZ ATION 03/09/2023 [facility] DATE CREATED AUTHOR AUTHOR'S ORGANIZ ATION 08/16/2023 [facility] DATE CREATED AUTHOR AUTHOR'S ORGANIZ ATION 09/12/2023 [facility] Patient Care team informatio n (unrecognized section and content) Chief Steward/Stewardess Relationship Specialty Start Date End Date Noe Caballero MD PCP - General Family Medicine 08/09/15 Noe Caballero MD Referring Family Medicine 08/21/21 Source Comments (unrecognize d section and content) In the event this informatio n is protected by the Federal Confidentiality of Alcohol and Drug Abuse Patient Records regulations: The Federal rules restrict any use of the information to criminally investigate or prosecute any alcohol or drug abuse patient.[facility] FOR RECORDS PERTAINING TO PATIENTS WHO ARE OR HAVE BEEN ENROLLED IN A CHEMICAL DEPENDENCY/SUBSTANCEABUSE PROGRAM, SOME INFORMATION MAY BE OMITTED. This clinical summary was aggregated from multiple sources. Caution should be exercised in using it in the provision of clinical care. This summary normalizes information from multiple sources, and as a consequence, information in this document may materially change the coding, format and clinical context of patient data. In addition, data may be omitted in some cases. CLINICAL DECISIONS SHOULD BE BASED ON THE PRIMARY CLINICAL RECORDS. [employer] provides no warranty or guarantee of the accuracy or completeness of information in this document.
[2023-09-17 06:43] VITALS: BMI 34.3
[2023-09-17] MEDS: LACTATED RINGER'S SOLUTION 1,000 ML 50 ML IV (06:52)
[2023-09-17 07:53] VITALS: BP 99/57; PULSE 66; RESP 16; TEMP 36; O2SAT 94
[2023-09-17 08:03] VITALS: BP 101/65; PULSE 67; RESP 16; O2SAT 95
[2023-09-17 08:18] VITALS: BP 110/77; PULSE 64; RESP 16; O2SAT 93
== END 2023-09-17 08:18 | disposition home or self-care (01) ==
PROVIDERS: PCP Family Medicine; Visit Provider Surgery
PROC: (CPT 45378; principal; 2023-09-17 07:30)
DX: K64.8 Other hemorrhoids (principal); K64.4 Residual hemorrhoidal skin tags; Z79.01 Long term (current) use of 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; F41.9 Anxiety disorder, unspecified; D68.61 Antiphospholipid syndrome; N40.0 Benign prostatic hyperplasia without lower urinary tract symptoms; I25.10 Atherosclerotic heart disease of native coronary artery without angina pectoris; E11.9 Type 2 diabetes mellitus without complications; Z87.891 Personal history of nicotine dependence; K21.9 Gastro-esophageal reflux disease without esophagitis; Z86.718 Personal history of other venous thrombosis and embolism; E78.00 Pure hypercholesterolemia, unspecified; I10 Essential (primary) hypertension; E03.9 Hypothyroidism, unspecified; M54.16 Radiculopathy, lumbar region; E66.9 Obesity, unspecified; M06.9 Rheumatoid arthritis, unspecified; Z68.33 Body mass index [BMI] 33.0-33.9, adult; Z95.5 Presence of coronary angioplasty implant and graft
CPT/HCPCS: 45378; J2704

== ENCOUNTER 2023-12-13 08:56 | Outpatient (OUT) | payer MEDICARE, SELFPAY ==
--- NOTE | 2023-12-13 | US_ITS ---
The [address] [address] Patient Name: DORIS PARKER MRN: [id number] date: 1965 Sex: M Assigned Patient Location: US Current Patient Location: Accession/Order Number: [id number] Exam Date: 12/13/2023 09:00 Report Date: 12/13/2023 17:39 At the request of: EDGAR DANIELLE Procedure: US renal BI Ultrasound kidneys, bilateral HISTORY: N20.0 HX KIDNEY STONE COMPARISON: None. TECHNIQUE: Transabdominal ultrasound imaging of both kidneys and bladder was performed. FINDINGS: The kidneys demonstrate normal echogenicity with cortical lobulation and mild thinning. The right kidney measures 12.2 x 5.0 x 5.7 cm. There are multiple cysts in the right kidney, largest cyst is at the upper pole measuring 6.6 x 6.2 x 5.7 cm. There is no hydronephrosis of right kidney. The left kidney measures 12.9 x 5.2 x 6.6 cm, with a cyst at the interpolar region measuring 2.2 x 2.1 x 2.1 cm. There is a tiny echogenic structure with twinkle artifact located at the interpolar region compatible with nonobstructing stone measuring 0.2 cm. No hydronephrosis of left kidney. The bladder is incompletely distended with prevoid bladder volume of 56 cc. US/US renal BI IMPRESSION: 1. Mild cortical thinning of the kidneys, without hydronephrosis. 2. Bilateral renal cysts, largest at the upper pole right kidney measuring 6.6 cm. 3. 0.2 cm nonobstructing left renal stone. 4. Incompletely distended bladder. Electronically authenticated by: HILL IRVING Date: 12/13/2023 17:39
--- OUTSIDE RECORDS SUMMARY | 2023-12-13 09:00 | XMS_ITS | CCD ---
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 Name Role Phone EFREM MATSON Admitting Unavailable EFREM MATSON Attending Unavailable NOE CABALLERO Primary Care Unavailable Noe Caballero Primary Care Physician [phone] ELDAGOBERTO MANCERA Admitting Unavailable DAGOBERTO CORMIER Attending Unavailable NOE CABALLERO Primary Care Unavailable [...] Unavailable HOY ., DR LIU Consulting Unavailable NORWAY, DR EFREM Ventura Consulting Unavailable HOY ., [...] Primary Care Unavailable PERLITA, SHANIA Consulting Unavailable LOLIS, EDGAR Admitting Unavailable LOLIS, EDGAR Attending Unavailable HOY ., DR LIU Primary Care Unavailable WEST, DR EFREM Ventura Consulting Unavailable LOLIS, EDGAR Consulting Unavailable LOLIS, EDGAR Admitting Unavailable LOLIS, EDGAR Attending Unavailable HOY ., DR LIU Primary Care Unavailable WEST, DR EFREM Ventura Consulting Unavailable IRVING, WINCHA Consulting Unavailable LOLIS, EDGAR Consulting Unavailable LOLIS, EDGAR Admitting Unavailable LOLIS, EDGAR Attending Unavailable HOY ., DR LIU Primary Care Unavailable LOLIS, EDGAR Consulting Unavailable LOLIS, EDGAR Admitting Unavailable LOLIS, EDGAR Attending Unavailable HOY ., DR LIU Primary Care Unavailable ZIEBER, DR MASON Braun Consulting Unavailable LOLIS, EDGAR Consulting Unavailable HOY ., DR LIU Admmak [...] SHANIA Consulting Unavailable HOY ., DR LIU Admmak [...] HOY ., DR LIU Primary Care Unavailable SHANIA BHAT Consulting Unavailable ALFIE SLAUGHTER Admitting Unavailable ALFIE SLAUGHTER Attending Unavailable NOE CABALLERO Primary Care Unavailable SHANIA BHAT Attending Unavailable DAGOBERTO CORMIER Attending Unavailable Noe Caballero MD Primary Care Provider Noe Caballero MD Unavailable EDGAR NAVA Attending Unavailable EDGAR NAVA Attending Unavailable EDGAR NAVA Admitting Unavailable EDGAR NAVA Attending Unavailable Noe Caballero Referring Unavailable NILL, Jamil Braun Attending Unavailable NILL, Jamil Braun Attending Unavailable NILLJamil Attending Unavailable Noe Caballero Referring Unavailable NILL, Jamil Braun Attending Unavailable Allergies Allergy Classification Reported Allergen(s) Allergy Type Date of Onset Reaction(s) Facility (7 sources) Acetaminophen / HYDROcodone; Translations: [acetaminophen-hy drocodone] Drug Allergy Hallucinations (finding), Migraine (disorder) [facility] (11 sources) Penicillins; Translations: [penicillins] Drug allergy 4 Weal (disorder) [facility] (7 sources) Sulfonamides (Antibiotic); Translations: [sulfa drugs] Drug allergy Weal (disorder) [facility] (1 source) Acetaminophen / HYDROcodone Drug Allergy [facility] (2 sources) Sulfonamides (Antibiotic) Drug allergy (disorder) 5 [facility] (1 source) Penicillin; Translations: [penicillin] Drug Allergy [facility] Medications Current Medications Medication Drug Class(es) Dates Sig (Normalized) Sig (Original) acetaminophen 325 mg / oxyCODONE hydrochloride 5 mg oral tablet (2 sources) Opioid Agonist Start: 01-17-2022 take 1 tablet by mouth every six hours Percocet 5 mg-325 mg oral tablet 1 tab(s), Oral, q6hr Pain 8-10, 20 tab(s), Refill(s) 0, [facility], 178, cm, 01/11/22 13:03:00 EDT, Height/Length Dosing, [...] oral tablet (1 source) Quinolone Antimicrobial Start: End: 04-24-2 022 take 1 tablet by mouth every twelve hours Cipro 500 mg Tab 500 mg = 1 tab(s), Oral, q12hr, X 3 day(s), # 6 tab(s), Refills(s) 0, Pharmacy: [id number] [place] [address], 178, cm, 01/11/22 13:03:00 EDT, Height/Length Dosing, 106, kg, 01/11/22 13:03:00 EDT, Weight Dosing Start Date: 01/17/22 Stop Date: 01/20/22 Status: Ordered 1 ml enoxaparin sodium 100 mg/ml prefilled syringe (1 source) Low Molecular Weight Heparin Start: inject 100 mg by subcutaneous injection every twelve hours enoxaparin 100 mg/mL SubQ Terra 100 mg, SubCutaneous, q12hr, start when stop coumadin for surgery, Refills(s) 0 Start Date: 09/13/21 Status: Ordered enoxaparin 100 mg/mL SubQ Terra (3 sources) Start: inject 100 mg by subcutaneous injection every twelve hours enoxaparin 100 mg/mL SubQ Terra 100 mg, SubCutaneous, q12hr, start when stop coumadin for surgery, Refills(s) 0 Start Date: 09/13/21 Status: Ordered HYDROcodone (1 source) Opioid Agonist Start: hydrocodone Oral, q12hr, PRN Breakthrough Pain, Refills(s) 0 Start Date: 09/13/21 Status: Ordered lisinopril 30 mg oral tablet (7 sources) Angiotensin Converting Enzyme Inhibitor Start: take 1 tablet by mouth once daily [...] daily. multivitamin with iron (1 source) Start: 3 take 1 tablet by mouth once daily multivitamin with iron 1 tab(s), Oral, Daily, Refill(s) 0 Start Date: 08/15/23 Status: Ordered omeprazole 20 mg delayed release oral capsule (4 sources) Proton Pump Inhibitor Start: 1 omeprazole 20 mg Cap-DR 40 mg = 2 cap(s), Oral, Daily, Control of stomach acid Start Date: 09/13/21 Status: Ordered Comment on above: Take 20 mg by mouth daily. omeprazole 20 mg Cap-DR (3 sources) Start: 1 omeprazole 20 mg Cap-DR 20 mg = [...] tab(s), Oral, Friday, Blood Thinner Start Date: 3/29/22 Status: Ordered Start: 05-25-2019 take 1 tablet [...] Start: 08-29-2020 take 1 capsule by mo [facility] once daily venlafaxine 75 mg Cap-ER 75 mg = 1 cap(s), Oral, Daily, take 1 capsule by mouth once daily, Anxiety Start Date: 08/29/20 Status: Ordered take 1 tablet by geri twice daily venlafaxine (EFFEXOR) 75 mg tablet [...] Coronary arteriosclerosis; Translations: [Atherosclerotic heart disease of [place] coronary artery without angina pectoris] Onset: 2 [...] sources) Long-term current use of anticoagulant; Translations: [joint terminal attack controller (current) use of 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] Onset: 2 Episodic [...] Encounter for therapeutic drug level monitoring; Translations: [[facility] DRUG LEVL MONITORING] Onset: 09-24-2022 Episodic Other aftercare (1 source) joint terminal attack controller (current) use of 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; Translations: [LEAD PRODUCER CURRNT USE ANTICOAGULANTS] Onset: 09-24-2022 Episodic Other lower respiratory disease (3 sources) Other forms of dyspnea; Translations: [OTHER FORMS OF DYSPNEA] Onset: 01-31-2023 Episodic Results Test Name Value Interpretation Reference Range Facility Outside Colonoscopyon 2022 Outside Colonoscopy [id number]#1 .00TIFF Normal [facility] Reminderson 09-18-2023 Reminders - From: Delilah Fink LPN To: N - Clinical; Sent: 09/18/2023 12:45:06 EST Show up: 08/18/2033 07:00:00 EST Subject: colonoscopy recall Due Date/Time: 09/17/2033 07:00:00 EST Reminder/Recall Patient due for screening colonoscopy 09/17/2033. Normal [facility] Reminderson 09-12-2023 Reminders - From: Aisha Zelaya To: EU - Recallvaishnavi Nava; Sent: 02/19/2023 15:30:57 EDT Show up: 07/13/2023 15:30:00 EDT Subject: Ambulatory Reminder Due Date/Time: 08/13/2023 15:30:00 EST Reminder/Recall Call and schedule patient for a MAKENNA prior to 08/26/23 follow up appointment. From: EDGAR NAVA PA-C (EU - Recallvaishnavi Nava) To: EU - Clinical; Sent: 09/10/2023 17:02:27 EST ! Show up: 09/10/2023 17:02:00 EST Due Date/Time: 09/11/2023 17:02:00 EST Appt 09/30/23 states pt is scheduled 09/19/23 @ 0900. Normal [facility] Physician Referralon 023 Physician Referral [id number]#1 .00TIFF [facility] Consent for Procedure/Surger yon 09-01-2023 Consent for Procedure/Surgery [id number]# 1.00TIFF [facility] Ambulatory Visit Summaryon 1 10-30-2022 Ambulatory Visit Summary DORIS LUIS :1965 Visit Date:08/29/2023 Ambulatory Visit Instructions Your Care Team Attending Physician - ANNAMARIE ISRAEL, Jamil Braun Primary Care Physician - Ada ISRAEL, Noe Referring Physician - Noe Caballero MD This [...] Cardiac catheterization, Cataract extraction, Excision of lipoma, Angela filter, History of lumbar spine surgery, Meniscal repair, Thrombectomy, Tonsillectomy. Discharge Vitals Heart Rate (Peripheral) 72 Respiratory Rate 16 Blood Pressure 126/78 Height 177.8 cm Height 70 in Weight 106.8 kg Weight 234.96 lb BMI 33.78 What to do next Scheduled Follow-Up Appointments Friday 2:30 PM EST With: EDGAR NAVA PA-C Where: [facility] Normal [facility] Physician Referralon 023 Physician Referral [id number]#1 .00TIFF [facility] Office Visiton 08-14-2023 Follow-up visit [id number] Drois Luis 1965 M Date Provider Department Center 08/14/2023 Radha-DAGOBERTO CORMIER [facility] Family History Problem Relation Age of Onset Coronary artery disease Mother Coronary artery disease Father Family Status - Relation Status Age at Mother Father Level of Service:12656 MA OFFICE/OUTPATIENT ESTABLISHED LOW MDM 20-29 MIN Normal [facility] Physician Referralon 023 Physician Referral [id number]#1. 00TIFF [facility] Physician Referralon 023 Physician Referral [id number]#1 .00TIFF [facility] Lab Reportson 04-09-2023 Lab Reports [id number]#1 .00CD:127 Normal [facility] Lab Reportson 03-21-2023 Lab Reports [id number]#1 .00CD:127 Normal [facility] Lab Reports [id number]#1. 00CD:127 Normal [facility] RAD - MISCon 03-21-2023 RAD - MISC [id number]#1 .00CD:127 Normal [facility] Lab Reportson 03-18-2023 Lab Reports [id number]#1 .00CD:127 Normal [facility] Lab Reports [id number]#1 .00CD:127 Normal [facility] Ambulatory Visit Summaryon 0 03-12-2023 Ambulatory [...] pyelography (07/06/2014), Hemorrhoidectomy (2009), Excision of lipoma, [place] filter, History of lumbar spine surgery, Meniscal repair, Tonsillectomy. Discharge Vitals Heart Rate (Peripheral) 72 Respiratory Rate 16 Blood Pressure 126/78 Height 177.8 cm Height 70 in Weight 105 kg Weight 231 lb BMI 33.21 What to do next Scheduled Follow-Up Appointments Friday 10:00 AM EST With: EDGAR NAVA PA-C Where: [facility] Historical Records Officeon 03-10-2023 Historical Records Office [id number]#1 .00CD:127 [facility] Coding Summaryon 02-28-2023 Coding Summary HTMLBase 64 VuqbpnwhCZs4mFz+PGhlY WQ+QY7WKWQhR75wpAQuiQ 2kX3NZJYsOQcitMCTMDSx ZYyYvunCtCN4tsQBmJXLe IC8+ZZ2lCJYwGdkkmSFyw 1F6tUT3X16wnd0bQThnxF W0RDDrJyDehazpb1sezLc 6IDcuNmluOyBt SOMhuN41PDU6uD53Uu41c WWrtKEgu9rxiIt8JuYdQQ UsFDZ8eZfpDFxqy5ZeKSI xH54guUVwp8G3 TODvoXaalTVqDtFsoWO5p X6eFHospfsxd7qgtampSe x0xl30qBZov7V9kJG9D2B gvtT7CGTlrFCj FwjyiZKGfA7gfawvq6oow qutXiWcENLtPZv2GWy6WJ YynWnkZkPyKM62ASV5QYG wmmVaC9DmXIBd xDjmWhH0y5N9Xf0CO5AIL fonK5RKRYQXNBtuiXB+PC 26pe32B7QpIzjoHmw5LBN hPYW8nPQ4oU9a VBMdSWrpr1Q9hXV4L1Qxo qLvye1kw4zdUNIhZYtpO0 7uuPWpl7Q2YPGnhUK0BCC pxHxjYiOtyL14 Oyc+HJBeaRehi0SnXxlar 9tkl6goyZa3IiwiICNjoa BxlFshUMS5i8XhUj9eGZY nhGT7cKU0zG1j QnJtFpW5XFwlF339WyPpk BXgTefbG04iG7UeqDI+PH PgKyq1TFTwlZznMR8xN6A hZGRpbmctbGVm mRxzYQ6dWBYnwcllIGUut A8tQRZjH0t4LaPzSnI2MI rxT1CoHWHiehncAr39nZ5 rGpWpQgS3CQyi C1ZjoqX6ZCQseLXxUWinZ CC0E01zk9K1MAIuNYLiXA K8uRU6iZ6wgJlzehcenVQ mdDsgdmVydGlj ZRdjMRscG954OPUjtTejR kNvZGluZyBEYXRlOiAgMD YvMDIvMjAyMzwvdGQ+PHR yTMD8zVndFAWt dOIkMCxxVo9mvWeyoRliR Q7dDOVxvomcNZQdeD0oBX LzaEVmfQfeIG4sZONrmlr fv887XjPwSZU8 KUGazMCfC4MrhD9yOrAtI KSzBBZeS2YvrWDeOIovQ4 78VKqaDnD1DZBuxoErJ1E sLWFsaWduOiB0 q1G9Nl3Ws3WcruqkI8Yoy BRmIqLlXfqgIYx7O8KcOh wvdHI+HM68HOLiDF36EBs 6NBU7zVcaKXzp KOHdE9ExsS1eFeXwSXTfJ GRkOyc+PHRhYmxlIHdpZH RoPScxMDAlJyBzdHlsZT0 rHh6mVVLoCEQy yCjnpUDjJzIap3kuUFPnG EdxBM8crDzyP6SfkJT5IZ Wjq6o1Ch57T82cS2QryVV +HMQjiFF1uIT4 cP0tUlAwHtP3DTirO005W dHttSLaRqnpu8aaz7arnN g2YiN5OYBlffTofFgmXCE 1v0SxIp34G49b IHdpZHRoPSIxNSUiIHZhb Fydbs9tvS6yYr4+PGNvbC Y7xHZ0mX3sNjIuBqB6KOv vN156XfYimMDx Mwpnh4pzh7fkcFy8OlXpT AJucsGsjAwzSVP5r5KnEp 31V0ZxpKkza3WnTfk6bw1 8pSYlk2E3ePP8 T8XmGNPkwqmhoXMomSnzK F0yTYEpkjigMWUdrB8jKI CwW7o9YdQjHcR2XRtwX6O xmdQ8AIZpnHLn BFYhwEWDxD1bgcwpm2tls ryfZjDhNBEsIBh5AFv8XN AcrGtwUoLxUKP7CmJ8TGV 6ePKpuA4upKpq fqnqkW0aDgm+HMP0qYVoc XYXKZ8rMzfvoWU+PHRkIH V1sEfeVAizZUErhB3gUTA vR1n3TfJzYdT6 SNdqJ0QholH1MEJnzDTuH XYmtJPWaZ0duwbvd8rgzw iuSxWzQGGfDSf9IWb1BPO saWduOiBsZWZ0 KiD1WVC8pGRasA3zhHydx bboiR7vJtk+QmlydGggRG P7RHh3Y5LzLum8HNVmkOw bVW8trOHkNOhq Zo2nmLuiqYuvBL9zXIRlc tfuz497EnPmd6ibBFBxrE AqHDvaROO9W13ak7J6LZF gLSTvWYG6eKW2 kX9txQyxdxkwrQRwbLeqs nSlcIgcNYdpEIiyK799FT PpzProGiImWLv4M7RyCdp 3BTMcbLsgLT4p sCIyACljNs5zzMhgyWwjA T9nLABbjnxqw093EvHql8 ygBOPvnJOqMXreHPQ7Y03 fu4G9NVTgSQYs ZGE0jME3oU3yjElqtrqjk GVmdDsgdmVydGljYWwtYW jeB775LHUxiAjkHeMzdLw 1C5VhCaq2HNRy fBrwAB6dxHClTNfsPx2kd JbxrKciIE0dLNErvzvbz6 98ObExe8oaPVHptWZyNXl mCYM6L09li8U6 GMKhIDMkRUV5fUO5eA3uy GlnbjogbGVmdDsgdmVydG yiOAokTQapX143MTYysEm nPlBhdGllbnQg SNavEPj8Z7KlDckhzOU+P S88VCWuTE68vWSxgXOcb0 bfoDm1HqRcQTFiYQX8hTh aZOdkp6KmSIFe K70tgHYsw3I3YTIvgUzkx HApKxJidFJ3iE3nIDyjmi wfa1wtdxraEkvvl8oyru5 9xM96B25uGRzw ZHRoPSIzMCUiIHZhbGlnb h6pbX1rWi0+KMFssXA9pD Q9mN8oQCNrCgP4OKyzI76 9InRvcCIvPjxj b9plz2dprYc5YsI7MDJcl bJwpRohBOV7u8EqHf99F5 9sIHdpZHRoPSIyMCUiIHZ ncYtzef5mjM0j Ii8+PWQrfME0sZQ0kB0pP dNaRgQ2AEkrJ255KmFicQ MqEgytE63iU1BmzCS+PHR qDls8XCPbbNgs EL2dcYXfQVlsWo8fJYE7Q sTcZyEqYJmdC5QtXJVhdg ebtcmexBG3BMKrTTRgbH7 2Zg4tfParFSFh qPTZgE7bvtvbp5axtxgaS cTgNRZbMJy5MCi0HLBexW zmIrRzGXA0IyH3IQZ5oTM xjK8dsYfmjgya mY8aJ2QpTGAjwygsIk16o T1dBiWuPpO3EFblNxn+SE AFF9KJRTIOPBXHEPXFUEB QV4MYYAfguMF+ NFUqOGS0mUqjULwoQZNrt A3wJGNgO7y0GgHmIaT8LK uoK6WjOYAxbdnjFd54mS9 oPaQyGtC1LJkd W2AaoxG4QVWloNBtPDztZ QE9A49cu3N1XTNpOBGtEP L8wBC5dN7biWeatoxoqQC mdDsgdmVydGlj MRnpVPbtS355VRYzgHbfW pA0UlW6HwS2XrD9L8CfGk p3QNKauHfeOH0mkXWoKYn dQw2vsYfeoKko UD6kQHPuznxvTNGxpJ7yM CZjcNMvqAfgUC5mXOCcos jsw758ObJuFAE2WGYajLQ iP3DgfC3eYoHt HVNgZUKeF8SneIJzURymE 950QZaeZnT4XXPelqVhD9 WmRXGdqIfiCzH7b6V1Ws8 1OSBZZWFyczwv dGQ+XNCjBRY3cKgjZCbbY LXsjK0aHWZeM7x1TyLnPz U5YFxrJ3WeVUFoqtgqFz5 3dP2kPaYtIcM8 EYhaO0OamcZ8HRRoeOKoC OucYHF6E16ak6Z1RVCmVK NtYNY1oQI4dO6weTlpefe gbGVmdDsgdmVy nDbfOTjnHJcdJ198IWXwo YgcSu2FWDY5D7SwWrm5KC CooRjeAK0lxVCjAHcpWx6 aaYvjvPzyQR1u SYLerejdSTJxmD6aGJSdj ZCugPxuXY9tXVUnsgfax2 49LqTzRSM4QKDrxQTxW9R quH3dAiAjJRDv UWCmH4PmjARcISbbN011U BrsAbB9BYWwocVwY4FsAR RheSuzQbV0m0T2Co2NEBf vdGQ+SM03jx28 X6ZkIgkfHvx4QHBjFQK5f IU8vU6cJDSxDWfub1H5vM F1W1PdiaXkcb5an3hrPLB fGFqvH95bfMPj e8U9LUWgmZG1BYHzuGvkR iXpxQ13Ujx+PGNvbGdyb3 HiYdzqf1eee3bfuXk8HtJ wJSIgdmFsaWdu ZYI1z3WuQq79H29eHKstY HRoPSIzMCUiIHZhbGlnbj 9ceA8jGz4+ITSbhAI2mJI 5yR3pHcEaLoE9 GNcmJ477XgPvmRNfSmcwm 2itx4ajpOv6DlWsJXSbrk CsuVjyCRY1e3VjSa63F3X xkUqjv0NzXmd3 mf59pRJpy5B1oMN1U7WqX FQxspyzlROacRkkES6yGG YakvtzQDJqtM3cAWHjM3j 3XdJrNvF3RCow H4ZkceZ7OJStlQJlKJCyo VXUkR6uiabhh5wkgkygHs GmHGTxQMf9XMe7VQUmzMx uFtVyEJO9EoA7 OTU2iAOhvJ1htAdewqmau G9wOyc+FPe0k7rmtDFpHD 2kfUO3UL27OI45eZCaf2F 5oKI9D3CqPMDz yjrtidaceNS4KGVxVAVee D64Ny4xmNjiHd2iSNWkMK P2MEOsnCYxR8IefO8cUpB cFAPaCZWvZ3Yv aZKwTPzdP327IRfyVfE9V FHtpnDeL6XfEDGqePitAv P2k1O4Hx3DIR88NQ80PA8 9fUYny9Z7gBA7 N3BuMRRhrxjtgxksbYO3Z GJkKJXzqX60To0xeFbsUo 1uEVFdIPQ6NAWisKWwV9A xoW1dMtCpNUCx YMDfP0RjyLLrQZqpS292P LkkOtS2CDKpuhUcC8KxYI JbwRgpRpT3x0V3Tq1XLq9 4WA59MA44qWHy r8A1kQN8R7VjQNCujsanz wcoiOJ4YWCnHHBvcM95Cl 7zyPdmYx2gQJEeMVD7FVL spLXhM5XnbZ4b JyDdLVYgIAJfJ2OreYYuV YrjV438FVwzFuV8IANdak UlZ6PcTYTsyVpyTiY3e3L 0Rh4ZUPoonxc5 F3HyFfcwwHY+VY73FNLaW F44aUGttNVtb8qprSx4Vw GuOUCqGAJ4lAszEKqtl5S cERUhC91njJNs c2U (more content not included)... Normal [facility] Calculus Analysison 02-27-20 23 Color (Stone) [place] Invalid Interpretation Code [facility] Comment on above: Performed By: #### 1 [id number] ####[facility] [address] [place] [address] Composition Comment Invalid Interpretation Code [facility] Comment on above: Result Comment: Perc entage (Represents the % composition) Performed By: #### 1 [id number] ####[facility] [address] [place] [address] Disclaimer: Comment Invalid Interpretation Code [facility] Comment on above: Result Comment: This test was developed and its performance characteristics determined by [facility]. It has not been cleared or approved by the Food and Drug Administration. Performed at: [facility] Stone Analysis [address] [place] [address] [address] [place], [place] [id number] PhD Sarha Helton Performed By: #### 1 [id number] ####[facility] [address] [place] [address] Laboratory comment Lazaro (Report) Comment Invalid Interpretation Code [facility] Comment on above: Result Comment: Trav nguyen questions regarding Calculi Analysis contact [facility] at: [phone]. Performed By: #### 1 [id number] ####[facility] [address] [place] [address] Please Note: Comment Invalid Interpretation Code [facility] Comment on above: Result Comment: Calc cheikh report will follow via computer, mail or senior director creative services delivery. Performed By: #### 1 [id number] ####[facility] [address] [place] [address] Size (Stone) [Entitic vol] 3x5 Invalid Interpretation Code [facility] Comment on above: Result Comment: Sing le piece received. Performed By: #### 1 [id number] ####[facility] [address] [place] [address] Specimen source subject Nom Comment Invalid Interpretation Code [facility] Comment on above: Result Comment: Not provided Performed By: #### 1 [id number] ####[facility] [address] [facility] [place] [address] Stone Photo Comment Invalid Interpretation Code [facility] Comment on above: Result Comment: Phot ograph will follow under a separate cover Performed By: #### 1 [id number] ####[facility] [address] [place] [address] Urate (Stone) [Mass fraction] 100 % Invalid Interpretation Code [facility] Comment on above: Performed By: #### 1 [id number] ####[facility] [address] [place] [address] Weight (Stone) 35 mg Invalid Interpretation Code [facility] Comment on above: Performed By: #### 1 [id number] ####[facility] [address] [place] [address] ED Clinical Summaryon 2022 ED Clinical Summary [facility] ? Urgent Care [address] [place], [place] [id number] Clinical Summary PERSON INFORMATION Name: DORIS LUIS Age: 57 Years Sex: MALE : 1965 MRN: Acct#: Visit Reason: Skin problem; FISH HOOK LT THIGH Arrival: 02/26/2023 14:18:24 Discharge: 02/26/2023 15:11:00 LOS: 000 00:53 Check In: 02/26/2023 14:18:24 Checkout: 02/26/2023 15:11:00 Address: [facility] [place] [address] PCP: NOE CABALLERO PROVIDER INFORMATION Provider Role Assigned Unassigned ALFIE SLAUGHTER ED PA 02/26/2023 14:20:09 Ivan Pringle BLACKSMITH SUPERVISOR Nurse 02/26/2023 14:20:24 Asya Luther BLACKSMITH SUPERVISOR Nurse 02/26/2023 14:30:49 VITALS INFORMATION Vital Sign Triage Latest Temperature Tympanic Temperature Temporal Artery Pulse Rate O2 Sat 94 % 94 % Respiratory Rate Blood Pressure /70 mmHg /70 mmHg MEDICAL INFORMATION Medications Given: Medication Dose Route tetanus/diphth/pertus s (Tdap) adult/adol 0.5 mL IM bacitracin topical [...] distress: No -Vitals: reviewed. SKIN: -Gross abnormalities: Rosamond appreciated in the left medial lower thigh just above the knee NECK: -Supple (wxez-nj-xjenm): non-tender. CARD: -Rate and rhythm: Regular RESP: [...] Fish hook injury of left lower leg ([id number] S89.92XA). Orders Orders Patient Care: Wound Care Routine (Order): 02/26/2023 14:48 EDT Pharmacy: bacitracin topical (Order): 1 michael, TOP, Once tetanus/diphth/pertus s (Tdap) adult/adol (Order): 0.5 mL, IM, Once. [...] Adult Follow-Up: With: Address: When: NOE CABALLERO [address] [place] [address] [place] [address] Business (1) Within 3 to 5 days DIAGNOSIS: Fish hook injury of left lower leg Patient Understands: Yes - Patient/family/caregi josee verbalizes understanding of instructions given Comment: [facility] ED Note - Physicianon 2022 ED Note - Physician Patient: DORIS LUIS Age: 57 years Sex: [...] distress: No -Vitals: reviewed. SKIN: -Gross abnormalities: Rosamond appreciated in the left medial lower thigh just above the knee NECK: -Supple ([id number]): non-tender. CARD: -Rate and rhythm: Regular RESP: [...] Fish hook injury of left lower leg (FSQ49-SH S89.92XA). Orders Orders Patient Care: Wound Care Routine (Order): 02/26/2023 14:48 EDT Pharmacy: bacitracin topical (Order): 1 michael, TOP, Once tetanus/diphth/pertus s (Tdap) adult/adol (Order): 0.5 mL, IM, Once. . Patient request removed by me in the urgent care. Patient was educated on care of area signs of infection when to return for signs of infection given a tetanus shot in the urgent care. Told to return for any [Electronically Signed on: 02/26/2023 14:57 EDT] ALFIE SLAUGHTER [Verified on: 02/26/2023 14:57 EDT] ALFIE SLAUGHTER Normal [facility] ED Patient Summaryon 023 ED Patient Summary [facility] ? Urgent Care [address] [place] [address] PATIENT DISCHARGE INSTRUCTIONS Patient Information Name: DORIS LUIS Age: 57 Years Date of : 1965 Reason For Visit: Skin problem; FISH HOOK LT THIGH Arrival Time: 02/26/2023 14:18:24 Primary Care Physician: NOE CABALLERO Attending Physician: ALFIE SLAUGHTER Comment: Patient Education With: Address: When: NOE ADA [address] [place] [id number] Business (1) Within 3 to 5 [...] at home: Medicines ? Take or apply [id number] and prescription medicines only as told by [...] and water are not available, use hand investment advisor. ? Change your dressing as told by [...] washing o (more content not included)... Normal [facility] Urgent Care Recordon 023 Urgent Care Record [facility] ? Urgent Care [address] [place] [id number] PATIENT DISCHARGE INSTRUCTIONS Patient Information Name: DORIS LUIS Age: 57 Years Date of : 1965 Reason For Visit: Skin problem; FISH HOOK LT THIGH Arrival Time: 02/26/2023 14:18:24 Primary Care Physician: NOE CABALLERO Attending Physician: ALFIE SLAUGHTER Comment: Visit Diagnosis: Diagnoses This Visit Fish hook injury of left lower leg (S89.92XA) Skin problem ([id number]) If you received any narcotics, sedation, or [...] legal documents With: Address: When: NOE CABALLERO [address] [place] [address], [facility] [place] [address] Business (1) Within 3 to 5 days Medication Information: The exam and treatment you received today in the [facility] were for an urgent problem and are not intended as complete care. It is important for you to follow up with a doctor, nurse practitioner, or physician?s special education educational assistant for ongoing care. If your symptoms [...] so we can reach you if necessary. [facility] has provided you with a complete list of medications post discharge. Please inform your reduction furnace operator helper/provider of your visit and for further instruction [...] washing out the (more content not included)... [facility] Historical Records Officeon 02-20-2023 Historical Records Office [id number]:127 [facility] Physician Referralon 023 Physician Referral [id number]:127 [facility] Ambulatory Visit Summaryon 0 02-18-2023 Ambulatory Visit Summary DORIS LUIS :1965 Visit Date:02/18/2023 Ambulatory Visit Instructions Your Diagnosis Kidney stone Prostate cancer screening BPH without obstruction/lower urinary tract symptoms Renal cyst Tests Performed Urnls Dip Stick Auto w/o Microscopy POC 67976 US Renal -- Results Pending -- Please visit your patient portal for your results or contact your primary care physician. Your Care Team Attending Physician - EDGAR NAVA PA-C Primary Care Physician - Noe Caballero [...] Cystoscopy and retrograde pyelography (07/06/2014), Back care, [place] filter, Hemorrhoidectomy, History of knee surgery, Tonsillectomy. Discharge Vitals Heart Rate (Peripheral) 68 Respiratory Rate 16 Blood Pressure 130/72 Height 178 cm Height 70 in Weight 106 kg Weight 233.2 lb BMI 33.46 What to do next Scheduled Follow-Up Appointments Friday 10:00 AM EST With: EDGAR NAVA PA-C Where: [facility] Patient Educationon 02-19-20 Patient Education Urology Kidney [...] these instructions at home: Medicines ? Take [id number] and prescription medicines only as told by [...] provider. Document Revised: 05/20/2022 Document Reviewed: 05/20/2022 [employer] Patient Education ? 2022 [employer] ([employer]). Martha [facility] Urology Office/Clinic Noteon 02-18-2023 Urology Office/Clinic [...] E&M of Est. Patient Moderate 30-39 Min 85832 PSA Total Urnls Dip Stick Auto w/o Microscopy POC 89405 US Renal 2. Prostate cancer screening (Z12.5: Encounter for screening for malignant neoplasm of prostate) PSA 07/03/22 - 1.36 will need repeat this fall. order placed. No additional PSA in [facility] system (gets labs annually for PCP but doesn't look like this was included). Ordered: E&M of Est. Patient Moderate 30-39 Min 00840 PSA Total 3. BPH without obstruction/lower urinary tract symptoms (N40.0: Benign prostatic hyperplasia without lower urinary tract symptoms) Pt is currently taking no bladder/prostate medication and is highly satisfied with overall symptom control. No indication for treatment at this time. Continue to monitor. Ordered: E&M of Est. Patient Moderate 30-39 Min 49602 PSA Total 4. Renal cyst (N28.1: Cyst of kidney, acquired) Pt's Renal US shows bilat simple cysts, largest 6cm on right. Ordered: E&M of Est. Patient Moderate 30-39 Min 86278 PSA Total f/u 6 mos w MAKENNA and PSA prior Follow-up With When Contact Information LOLIS ALLEN, EDGAR [place], URL Within 6 months [address] [place] [address] [facility] (1) Additional Instructions: Patient Education Kidney Stones, Ilvw-ya-Iklp Problem List/Past Medical History Ongoing Anticoagulated Anxiety [...] 1 cap(s), (more content not included)... Normal [facility] Comment on above: Result Comment: Elec tronically Signed By: EDGAR NAVA PA-C\.br\Date and Time Signed: 02/18/23 15:31 EDT CBC AUTO DIFFon 01-31-2023 BASO # 0.1 103/ul Normal 0.0-0.1 [facility] Comment on above: Performed By: #### P T #### [facility] [address] [address] [address] Curly Connell Basophils/100 WBC (Bld) 0.9 % Normal 0.2-2.0 [facility] Comment on above: Performed By: #### P T #### [facility] [address] [address] [address] Curly Connell EO # 0.1 103/ul Normal 0.0-0.7 [facility] Comment on above: Performed By: #### P T #### [facility] [address] [place] [address] Dr. Curly Connell Eosinophils/100 WBC (Bld) 1.2 % Normal 0.9-7.0 [facility] Comment on above: Performed By: #### P T #### [facility] [address] [place] [address] Dr. Curly Connell Erythrocyte distribution width (RBC) [Ratio] 19.1 % Critically high 11.0-15.0 [facility] Comment on above: Performed By: #### P T #### [facility] [address] [place] [address] Dr. Curly Connell Hematocrit (Bld) [Volume fraction] 42.3 % Normal 42.0-54.0 [facility] Comment on above: Performed By: #### P T #### [facility] [address] [place] [address] Dr. Curly Connell Hemoglobin (Bld) [Mass/Vol] 12.1 g/dL Critically low 14.0-18.0 [facility] Comment on above: Performed By: #### P T #### [facility] [address] [place] [address] Dr. Curly Connell IG # 0.02 10e3/ul Normal 0.00-0.03 [facility] Comment on above: Performed By: #### P T #### [facility] [address] [place] [address] Dr. Curly Connell IG % 0.2 % Normal 0.0-0.5 [facility] Comment on above: Performed By: #### P T #### [facility] [address] [place] [address] Dr. Curly Connell LYMPH # 2.2 103/ul Normal 1.2-3.8 [facility] Comment on above: Performed By: #### P T #### [facility] [address] [place] [address] Dr. Curly Connell Lymphocytes/100 WBC (Bld) 24.3 % Normal 20.5-60.0 [facility] Comment on above: Performed By: #### P T #### [facility] [address] [place] [address] Dr. Curly Connell MANUAL DIFF REQ NO Normal [facility] Comment on above: Performed By: #### P T #### [facility] [address] [place] [address] Dr. Curly Connell MCH (RBC) [Entitic mass] 21.1 pg Critically low 25.9-34.0 [facility] Comment on above: Performed By: #### P T #### [facility] [address] [place] [address] Dr. Curly Connell MCHC (RBC) [Mass/Vol] 28.6 g/dL Critically low 29.9-35.2 [facility] Comment on above: Performed By: #### P T #### [facility] [address] [place] [address] Dr. Curly Connell MCV (RBC) [Entitic vol] 73.8 fL Critically low 80.0-94.0 [facility] Comment on above: Performed By: #### P T #### [facility] [address] [place] [address] Dr. Curly Connell MONO # 0.8 103/ul Normal 0.3-0.8 [facility] Comment on above: Performed By: #### P T #### [facility] [address] [place] [address] Dr. Curly Connell Monocytes/100 WBC (Bld) 9.2 % Normal 1.7-12.0 [facility] Comment on above: Performed By: #### P T #### [facility] [address] [place] [address] Dr. Curly Connell NEUT # 5.9 103/ul Normal 1.4-6.5 [facility] Comment on above: Performed By: #### P T #### [facility] [address] [place] [address] Dr. uCrly Connell Neutrophils/100 WBC (Bld) 64.2 % Normal 43.0-75.0 [facility] Comment on above: Performed By: #### P T #### [facility] [address] [address] [address] Curly Connell Platelet mean volume (Bld) [Entitic vol] 10.0 fL Normal 9.5-13.5 [facility] Comment on above: Performed By: #### P T #### [facility] [address] [address] [address] Curly Connell PLT 340 103/ul Normal 150-450 [facility] Comment on above: Performed By: #### P T #### [facility] [address] [address] [address] Curly Connell RBC 5.73 106/ul Normal 4.70-6.10 [facility] Comment on above: Performed By: #### P T #### [facility] [address] [place] [address] Dr. Curly Connell WBC 9.1 103/ul Normal 4.0-11.0 [facility] Comment on above: Performed By: #### P T #### [facility] [address] [place] [address] Dr. Curly Connell GLYCOHEMOGLOBIN A1Con 2022 ADA RECOMMENDATION SEE BELOW Normal [facility] Comment on above: Result Comment: ADA RECOMMENDED LIMIT 4.0 - 6.0 ADA THERAPEUTIC TARGET < 7.0 ACTION SUGGESTED > 7.0 Performed By: #### P T #### [facility] [address] [place] [address] Dr. Curly Connell Glucose [Mass/Vol] 151 mg/dL Normal [facility] Comment on above: Performed By: #### P T #### [facility] [address] [place] [address] Dr. Curly Connell HbA1c (Bld) [Mass fraction] 6.9 % Critically high 4.5-6.2 [facility] Comment on above: Performed By: #### P T #### [facility] [address] [place] [address] Dr. Curly Connell LIPID PROFILEon 01-31-2023 CHOL-HDL RATIO NORM SEE BELOW Normal [facility] Comment on above: Result Comment: 3.3 - 4.4 LOW RISK 4.4 - 7.1 AVERAGE RISK 7.1 - 11.0 MODERATE RISK >11.0 HIGH RISK Performed By: #### P T #### [facility] [address] [address] [address] Curly Connell Cholesterol [Mass/Vol] 149 mg/dL Normal <=200 [facility] Comment on above: Performed By: #### P T #### [facility] [address] [address] [address] Curly Connell Cholesterol in HDL [Mass/Vol] 41 mg/dL Normal 40-60 [facility] Comment on above: Performed By: #### P T #### [facility] [address] [address] [address] Curly Connell Cholesterol in LDL [Mass/Vol] 77.8 mg/dL Normal [facility] Comment on above: Performed By: #### P T #### [facility] [address] [address] [address] Curly Connell Cholesterol.total/Chol esterol in HDL [Mass ratio] 3.6 {ratio} Normal [facility] Comment on above: Performed By: #### P T #### [facility] [address] [address] [address] Curly Connell HDL NORMAL > or = 60 mg/dl - LO W CARDIOVASCULAR RISK <40 mg/dl - HIGH CARDIOVASCULAR RISK Normal [facility] Comment on above: Performed By: #### P T #### [facility] [address] [address] [address] Curly Connell LDL CALC NORMAL SEE BELOW Normal [facility] Comment on above: Result Comment: <100 mg/dl OPTIMAL 100 - 129 mg/dl NEAR OR ABOVE OPTIMAL 130 - 159 mg/dl BORDERLINE HIGH 160 - 189 mg/dl HIGH >190 mg/dl VERY HIGH Performed By: #### P T #### [facility] [address] [address] [address] Curly Connell Triglyceride [Mass/Vol] 151 mg/dL Critically high <=150 [facility] Comment on above: Performed By: #### P T #### [facility] [address] [place] [address] Dr. Curly Connell VLDL CALC 30.2 mg/dL Normal [facility] Comment on above: Performed By: #### P T #### [facility] [address] [place] [address] Dr. Curly Connell Office Visiton 01-31-2023 Follow-up visit [id number] Doris Luis Siva 1965 M Date Provider Department Center 01/31/2023 SHANIA LYN [facility] Family History Problem Relation Age of Onset Coronary artery disease Mother Coronary artery disease Father Family Status - Relation Status Age at Mother Father Level of Service:58015 MA OFFICE/OUTPATIENT ESTABLISHED MOD MDM 30-39 MIN Reason for Visit and Comments: Coronary Artery Disease [187] Hypertension [074446] Hyperlipidemia [182] Normal [facility] PROF 14(COMP METB)on 023 Albumin [Mass/Vol] 3.6 g/dL Normal 3.4-5.0 [facility] Comment on above: Performed By: #### P T #### [facility] [address] [place] [address] Dr. Curly Connell Albumin/Globulin [Mass ratio] 0.8 {ratio} Normal [facility] Comment on above: Performed By: #### P T #### [facility] [address] [place] [address] Dr. Curly Connell ALP [Catalytic activity/Vol] 66 U/L Normal 46-116 [facility] Comment on above: Performed By: #### P T #### [facility] [address] [place] [address] Dr. Curly Connell ALT [Catalytic activity/Vol] 21 U/L Normal 16-63 [facility] Comment on above: Performed By: #### P T #### [facility] [address] [place] [address] Dr. Curly Connell Anion gap [Moles/Vol] 9.6 mmol/L Normal [facility] Comment on above: Performed By: #### P T #### [facility] [address] [place] [address] Dr. Curly Connell AST [Catalytic activity/Vol] 15 U/L Normal 15-37 [facility] Comment on above: Performed By: #### P T #### [facility] [address] [address] [address] Curly Connell Bilirubin [Mass/Vol] 0.4 mg/dL Normal 0.2-1.0 [facility] Comment on above: Performed By: #### P T #### [facility] [address] [address] [address] Curly Connell Calcium [Mass/Vol] 9.2 mg/dL Normal 8.5-10.1 [facility] Comment on above: Performed By: #### P T #### [facility] [address] [place] [address] Dr. Curly Connell Chloride [Moles/Vol] 106 mmol/L Normal 98-107 [facility] Comment on above: Performed By: #### P T #### [facility] [address] [place] [address] Dr. Curly Connell CO2 [Moles/Vol] 28.2 mmol/L Normal 21.0-32.0 [facility] Comment on above: Performed By: #### P T #### [facility] [address] [place] [address] Dr. Curly Connell Creatinine [Mass/Vol] 1.23 mg/dL Normal 0.70-1.30 [facility] Comment on above: Performed By: #### P T #### [facility] [address] [place] [address] Dr. Curly Connell EGFR-AF VENEZUELAN >60 Normal >=60 [facility] Comment on above: Performed By: #### P T #### [facility] [address] [place] [address] Dr. Curly Connell EGFR-NON AF VENEZUELAN 60 mL/min/1.73m2 Normal >=60 [facility] Comment on above: Performed By: #### P T #### [facility] [address] [place] [address] Dr. Curly Connell Globulin (S) [Mass/Vol] 4.3 g/dL Normal [facility] Comment on above: Performed By: #### P T #### [facility] [address] [address] [address] Curly Connell Glucose [Mass/Vol] 123 mg/dL Critically high 74-106 [facility] Comment on above: Performed By: #### P T #### [facility] [address] [address] [address] Curly Connell Potassium [Moles/Vol] 4.8 mmol/L Normal 3.5-5.1 [facility] Comment on above: Performed By: #### P T #### [facility] [address] [address] [address] Curly Connell Protein [Mass/Vol] 7.9 g/dL Normal 6.4-8.2 [facility] Comment on above: Performed By: #### P T #### [facility] [address] [address] [address] Curly Connell Sodium [Moles/Vol] 139 mmol/L Normal 136-145 [facility] Comment on above: Performed By: #### P T #### [facility] [address] [address] [address] Curly Connell Urea nitrogen [Mass/Vol] 25.0 mg/dL Critically high 7.0-18.0 [facility] Comment on above: Performed By: #### P T #### [facility] [address] [address] [address] Curly Connell Urea nitrogen/Creatinine [Mass ratio] 20.3 mg/mg Normal [facility] Comment on above: Performed By: #### P T #### [facility] [address] [address] [address] Curly Connell PROTIMEon 01-31-2023 INR Coag (PPP) [Relative time] 2.17 {INR} Normal [facility] Comment on above: Performed By: #### P T #### [facility] [address] [address] [address] Curly Connell INR GUIDELINES SEE BELOW Normal [facility] Comment on above: Result Comment: DAFNE RED INR: 2.0 - 3.0 CONDITIONS NOT LISTED BELOW 2.5 - 3.5 FOR PROSTHETIC HEART VALVE REPLACEMENT 2.5 - 3.5 RECURRENT THROMBOSIS Performed By: #### P T #### [facility] [address] [place] [address] Dr. Curly Connell PT Coag (PPP) [Time] 22.0 s Critically high 9.0-11.6 [facility] Comment on above: Performed By: #### P T #### [facility] [address] [place] [address] Dr. Curly Connell RAD - MISCon 01-22-2023 RAD - MISC [id number]. 00CD:127 Normal [facility] RAD - Ultrasound Reporton RAD - Ultrasound Report [id number]. 00CD:127 Normal [facility] US KIDNEYSon 01-21-2023 US KIDNEYS EXAMINATION: US KIDNEYS HISTORY: Kidney stone COMPARISON: No relevant comparison [...] by: EFREM HUMPHREYS Date: 2023-01-21 10:07 Normal [facility] XR KUB 1 VIEWon 01-21-2023 XR [...] EFREM HUMPHREYS Date: 2023-01-21 10:37 Normal [facility] PROTIMEon 12-30-2022 INR Coag (PPP) [Relative time] 2.16 {INR} Normal [facility] Comment on above: Performed By: #### P T #### [facility] [address] [place] [address] Dr. Curly Connell INR GUIDELINES SEE BELOW Normal [facility] Comment on above: Result Comment: DAFNE RED INR: 2.0 - 3.0 CONDITIONS NOT LISTED BELOW 2.5 - 3.5 FOR PROSTHETIC HEART VALVE REPLACEMENT 2.5 - 3.5 RECURRENT THROMBOSIS Performed By: #### P T #### [facility] [address] [place] [address] Dr. Curly Connell PT Coag (PPP) [Time] 21.9 s Critically high 9.0-11.6 [facility] Comment on above: Performed By: #### P T #### [facility] [address] [place] [address] Dr. Curly Connell PROTIMEon 10-14-2022 INR Coag (PPP) [Relative time] 2.36 {INR} Normal [facility] Comment on above: Performed By: #### P T #### [facility] [address] [place] [address] Dr. Curly Connell INR GUIDELINES SEE BELOW Normal [facility] Comment on above: Result Comment: DAFNE RED INR: 2.0 - 3.0 CONDITIONS NOT LISTED BELOW 2.5 - 3.5 FOR PROSTHETIC HEART VALVE REPLACEMENT 2.5 - 3.5 RECURRENT THROMBOSIS Performed By: #### P T #### [facility] [address] [address] [address] Curly Connell PT Coag (PPP) [Time] 23.8 s Critically high 9.0-11.6 [facility] Comment on above: Performed By: #### P T #### [facility] [address] [place] [address] Dr. Curly Connell PROTIMEon 09-16-2022 INR Coag (PPP) [Relative time] 1.93 {INR} Normal [facility] Comment on above: Performed By: #### P T #### [facility] [address] [place] [address] Dr. Curly Connell INR GUIDELINES SEE BELOW Normal [facility] Comment on above: Result Comment: DAFNE RED INR: 2.0 - 3.0 CONDITIONS NOT LISTED BELOW 2.5 - 3.5 FOR PROSTHETIC HEART VALVE REPLACEMENT 2.5 - 3.5 RECURRENT THROMBOSIS Performed By: #### P T #### [facility] [address] [place] [address] Dr. Curly Connell PT Coag (PPP) [Time] 20.0 s Critically high 9.0-11.6 [facility] Comment on above: Performed By: #### P T #### [facility] [address] [place] [address] Dr. Curly Connell PROTIMEon 08-07-2022 INR Coag (PPP) [Relative time] 2.68 {INR} Normal [facility] Comment on above: Performed By: #### P T #### [facility] [address] [place] [address] Dr. Curly Connell INR GUIDELINES SEE BELOW Normal [facility] Comment on above: Result Comment: DFANE RED INR: 2.0 - 3.0 CONDITIONS NOT LISTED BELOW 2.5 - 3.5 FOR PROSTHETIC HEART VALVE REPLACEMENT 2.5 - 3.5 RECURRENT THROMBOSIS Performed By: #### P T #### [facility] [address] [place] [address] Dr. Curly Connell PT Coag (PPP) [Time] 27.1 s Critically high 9.0-11.6 [facility] Comment on above: Performed By: #### P T #### [facility] [address] [address] [address] ABD/PELVIS WO CONon 07-17 CT ABD/PELVIS WO CON EXAMINATION: CT ABD/PELVIS WO CON HISTORY: Kidney stone COMPARISON: CTA [...] MASON NESBITT Date: 2022-07-17 19:16 Normal [facility] US KIDNEYSon 07-01-2022 US KIDNEYS Ultrasound [...] by: HILL IRVING Date: 2022-07-01 09:02 Normal [facility] XR KUB 1 VIEWon 07-01-2022 XR KUB [...] EFREM HUMPHREYS Date: 2022-07-01 16:28 Normal [facility] PROTIMEon 06-25-2022 INR Coag (PPP) [Relative time] 2.60 {INR} Normal [facility] Comment on above: Performed By: #### P T #### [facility] [address] [address] [address] Curly Connell INR GUIDELINES SEE BELOW Normal [facility] Comment on above: Result Comment: DAFNE RED INR: 2.0 - 3.0 CONDITIONS NOT LISTED BELOW 2.5 - 3.5 FOR PROSTHETIC HEART VALVE REPLACEMENT 2.5 - 3.5 RECURRENT THROMBOSIS Performed By: #### P T #### [facility] [address] [address] [address] Curly Connell PT Coag (PPP) [Time] 26.4 s Critically high 9.0-11.6 [facility] Comment on above: Performed By: #### P T #### [facility] [address] [place] [address] Dr. Curly Otero 06-05-2022 INR Coag (PPP) [Relative time] 3.62 {INR} Normal [facility] Comment on above: Performed By: #### P T #### [facility] [address] [place] [address] Dr. Curly Connell INR GUIDELINES SEE BELOW Normal [facility] Comment on above: Result Comment: DAFNE RED INR: 2.0 - 3.0 CONDITIONS NOT LISTED BELOW 2.5 - 3.5 FOR PROSTHETIC HEART VALVE REPLACEMENT 2.5 - 3.5 RECURRENT THROMBOSIS Performed By: #### P T #### [facility] [address] [place] [address] Dr. Curly Connell PT Coag (PPP) [Time] 35.9 s Critically high 9.0-11.6 [facility] Comment on above: Performed By: #### P T #### [facility] [address] [place] [address] Dr. Curly Otero 05-24-2022 INR Coag (PPP) [Relative time] 2.56 {INR} Normal [facility] Comment on above: Performed By: #### P T #### [facility] [address] [place] [address] Dr. Curly Connell INR GUIDELINES SEE BELOW Normal [facility] Comment on above: Result Comment: DAFNE RED INR: 2.0 - 3.0 CONDITIONS NOT LISTED BELOW 2.5 - 3.5 FOR PROSTHETIC HEART VALVE REPLACEMENT 2.5 - 3.5 RECURRENT THROMBOSIS Performed By: #### P T #### [facility] [address] [place] [address] Dr. Curly Connell PT Coag (PPP) [Time] 26.0 s Critically high 9.0-11.6 [facility] Comment on above: Performed By: #### P T #### [facility] [address] [place] [address] Dr. Curly Connell PROTIMEjulia 05-15-2022 INR Coag (PPP) [Relative time] 4.22 {INR} Critically high [facility] Comment on above: Performed By: #### P T #### [facility] [address] [place] [address] Dr. Curly Connell INR GUIDELINES SEE BELOW Normal [facility] Comment on above: Result Comment: DAFNE RED INR: 2.0 - 3.0 CONDITIONS NOT LISTED BELOW 2.5 - 3.5 FOR PROSTHETIC HEART VALVE REPLACEMENT 2.5 - 3.5 RECURRENT THROMBOSIS Performed By: #### P T #### [facility] [address] [place] [address] Dr. Curly Connell PT Coag (PPP) [Time] 41.5 s Critically high 9.0-11.6 [facility] Comment on above: Performed By: #### P T #### [facility] [address] [place] [address] Dr. Curly Connell PROTIMEjulia 05-01-2022 INR Coag (PPP) [Relative time] 3.81 {INR} Normal [facility] Comment on above: Performed By: #### P T #### [facility] [address] [place] [address] Dr. Curly Connell INR GUIDELINES SEE BELOW Normal [facility] Comment on above: Result Comment: DAFNE RED INR: 2.0 - 3.0 CONDITIONS NOT LISTED BELOW 2.5 - 3.5 FOR PROSTHETIC HEART VALVE REPLACEMENT 2.5 - 3.5 RECURRENT THROMBOSIS Performed By: #### P T #### [facility] [address] [place] [address] Dr. Curly Connell PT Coag (PPP) [Time] 37.7 s Critically high 9.0-11.6 [facility] Center Comment on above: Performed By: #### P T #### [facility] [address] [place] [address] Dr. Curly Connell PROTIMEjulia 04-10-2022 INR Coag (PPP) [Relative time] 2.90 {INR} Normal [facility] Comment on above: Performed By: #### P T #### [facility] [address] [place] [address] Dr. Curly Connell INR GUIDELINES SEE BELOW Normal [facility] Comment on above: Result Comment: DAFNE RED INR: 2.0 - 3.0 CONDITIONS NOT LISTED BELOW 2.5 - 3.5 FOR PROSTHETIC HEART VALVE REPLACEMENT 2.5 - 3.5 RECURRENT THROMBOSIS Performed By: #### P T #### [facility] [address] [place] [address] Dr. Curly Connell PT Coag (PPP) [Time] 29.2 s Critically high 9.0-11.6 [facility] Comment on above: Performed By: #### P T #### [facility] [address] [place] [address] Dr. Curly Connell PROTIMEon 03-28-2022 INR Coag (PPP) [Relative time] 2.52 {INR} Normal [facility] Comment on above: Performed By: #### P T #### [facility] [address] [place] [address] Dr. Curly Connell INR GUIDELINES SEE BELOW Normal [facility] Comment on above: Result Comment: DAFNE RED INR: 2.0 - 3.0 CONDITIONS NOT LISTED BELOW 2.5 - 3.5 FOR PROSTHETIC HEART VALVE REPLACEMENT 2.5 - 3.5 RECURRENT THROMBOSIS Performed By: #### P T #### [facility] [address] [place] [address] Dr. Curly Connell PT Coag (PPP) [Time] 25.6 s Critically high 9.0-11.6 [facility] Comment on above: Performed By: #### P T #### [facility] [address] [place] [address] Dr. Curly Connell PROTIMEon 03-25-2022 INR Coag (PPP) [Relative time] 1.81 {INR} Normal [facility] Comment on above: Performed By: #### P T #### [facility] [address] [place] [address] Dr. Curly Connell INR GUIDELINES SEE BELOW Normal [facility] Comment on above: Result Comment: DAFNE RED INR: 2.0 - 3.0 CONDITIONS NOT LISTED BELOW 2.5 - 3.5 FOR PROSTHETIC HEART VALVE REPLACEMENT 2.5 - 3.5 RECURRENT THROMBOSIS Performed By: #### P T #### [facility] [address] [place], [place] [address] Dr. Curly Connell PT Coag (PPP) [Time] 18.8 s Critically high 9.0-11.6 [facility] Comment on above: Performed By: #### P T #### [facility] [address] [place], [place] [address] Dr. Curly Connell Cardiovascular Lab Reporton 03-21-2022 Cardiovascular Lab Report [facility] Patient Name: [facility] E MR #: [id number] Department of Physician: Brian Byrne M.D. Division of Service Date: 03/20/2022 Cardiology Birthdate: 1965 Adult Cardiovascular Room #: [facility] [address] [facility] [place] [address] Cardiovascular Laboratory Report FINAL IMPRESSIONS: 1. Moderate [...] 40 mg of Crestor. Continue beta-apolinar, and angiotensin-convertin g enzyme inhibitor. We will add Imdur 30 mg a day for possible superimposed spasm. 3. Consider alternate etiologies for the patient's nocturnal pain, namely gastrointestinal. 4. Follow up with [facility] Cardiology in the next 1 to 2 [...] the right radial artery was obtained. A 6-Arabic glide sheath was inserted without difficulty. Bilateral [...] P/Dagoberto Cormier M.D. Date Trans: 03/21/2022 12:17 Davey/bouchra [id number] cc: Shania Bhat, MSN, PHARMACEUTICAL LABORATORY TECHNICIAN-C Department Of Surgery [place] [address] [facility] [address] Noe Caballero M.D. [facility] [address] [facility] [place] [facility] [address] Normal [facility] CBC AUTO DIFFon 03-18-2022 BASO # 0.1 103/ul Normal 0.0-0.1 [facility] Comment on above: Performed By: #### C BC #### [facility] [address] [place] [address] [address] Curly Connell Basophils/100 WBC (Bld) 0.8 % Normal 0.2-2.0 [facility] Comment on above: Performed By: #### C BC #### [facility] [address] [place] [address] [address] Curly Connell EO # 0.1 103/ul Normal 0.0-0.7 [facility] Comment on above: Performed By: #### C BC #### [facility] [address] [place] [address] Dr. Curly Connell Eosinophils/100 WBC (Bld) 1.1 % Normal 0.9-7.0 [facility] Comment on above: Performed By: #### C BC #### [facility] [address] [place] [address] Dr. Curly Connell Erythrocyte distribution width (RBC) [Ratio] 20.7 % Critically high 11.0-15.0 [facility] Comment on above: Performed By: #### C BC #### [facility] [address] [place] [address] Dr. Curly Connell Hematocrit (Bld) [Volume fraction] 45.3 % Normal 42.0-54.0 [facility] Comment on above: Performed By: #### C BC #### [facility] [address] [place] [address] [address] Curly Connell Hemoglobin (Bld) [Mass/Vol] 13.5 g/dL Critically low 14.0-18.0 [facility] Comment on above: Performed By: #### C BC #### [facility] [address] [place] [address] Dr. Curly Connell IG # 0.02 10e3/ul Normal 0.00-0.03 [facility] Comment on above: Performed By: #### C BC #### [facility] [address] [place] [address] Dr. Curly Connell IG % 0.2 % Normal 0.0-0.5 [facility] Comment on above: Performed By: #### C BC #### [facility] [address] [place] [address] [address] Curly Connell LYMPH # 1.9 103/ul Normal 1.2-3.8 [facility] Comment on above: Performed By: #### C BC #### [facility] [address] [place] [address] Dr. Curly Connell Lymphocytes/100 WBC (Bld) 23.4 % Normal 20.5-60.0 [facility] Comment on above: Performed By: #### C BC #### [facility] [address] [place] [address] Dr. Curly Connell MANUAL DIFF REQ NO Normal [facility] [place] Comment on above: Performed By: #### C BC #### [facility] [address] [place] [address] Dr. Curly Connell MCH (RBC) [Entitic mass] 23.0 pg Critically low 25.9-34.0 [facility] Comment on above: Performed By: #### C BC #### [facility] [address] [place] [address] Dr. Curly Connell MCHC (RBC) [Mass/Vol] 29.8 g/dL Critically low 29.9-35.2 [facility] Comment on above: Performed By: #### C BC #### [facility] [address] [place] [address] Dr. Curly Connell MCV (RBC) [Entitic vol] 77.2 fL Critically low 80.0-94.0 [facility] Comment on above: Performed By: #### C BC #### [facility] [address] [place] [address] Dr. Curly Connell MONO # 0.6 103/ul Normal 0.3-0.8 [facility] Comment on above: Performed By: #### C BC #### [facility] [address] [place] [address] [address] Curly Connell Monocytes/100 WBC (Bld) 7.7 % Normal 1.7-12.0 [facility] Comment on above: Performed By: #### C BC #### [facility] [address] [place] [address] [address] Curly Connell NEUT # 5.5 103/ul Normal 1.4-6.5 [facility] Comment on above: Performed By: #### C BC #### [facility] [address] [place] [address] Dr. Curly Connell Neutrophils/100 WBC (Bld) 66.8 % Normal 43.0-75.0 [facility] Comment on above: Performed By: #### C BC #### [facility] [address] [place] [address] Dr. Curly Connell Platelet mean volume (Bld) [Entitic vol] 9.8 fL Normal 9.5-13.5 [facility] Comment on above: Performed By: #### C BC #### [facility] [address] [place] [address] Dr. Curly Connell PLT 337 103/ul Normal 150-450 [facility] Comment on above: Performed By: #### C BC #### [facility] [address] [place] [address] Dr. Curly Connell RBC 5.87 106/ul Normal 4.70-6.10 [facility] Comment on above: Performed By: #### C BC #### [facility] [address] [place] [address] Dr. Curly Connell WBC 8.3 103/ul Normal 4.0-11.0 [facility] Comment on above: Performed By: #### C BC #### [facility] [address] [place] [address] Dr. Curly Connell [facility] SARS-CoV-2 (COVID-19) RNA MARCELLO+probe Ql (Unsp spec) Not detected Normal NOT DETECTED [facility] Comment on above: Result Comment: This test is not yet approved or cleared by the [place] FDA. When there are no FDA-approved or cleared tests available, and other criteria are met, FDA can make tests available under an emergency access mechanism called an Emergency Use Authorization (EUA). The EUA for this test is supported by the [place] of Health and Human Service's (HHS's) declaration [...] SARS-CoV-2. Performed By: #### C VDTB #### [facility] [address] [place] [address] Dr. Curly Connell PROF CHEM 8 (BAS METB)on Anion gap [Moles/Vol] 12.9 mmol/L Normal [facility] Comment on above: Performed By: #### P T #### [facility] [address] [place] [address] Dr. Curly Connell Calcium [Mass/Vol] 9.1 mg/dL Normal 8.5-10.1 [facility] Comment on above: Performed By: #### P T #### [facility] [address] [place] [address] Dr. Curly Connell Chloride [Moles/Vol] 105 mmol/L Normal 98-107 [facility] Comment on above: Performed By: #### P T #### [facility] [address] [place] [address] Dr. Curly Connell CO2 [Moles/Vol] 26.0 mmol/L Normal 21.0-32.0 [facility] Comment on above: Performed By: #### P T #### [facility] [address] [place] [address] Dr. Curly Connell Creatinine [Mass/Vol] 1.34 mg/dL Critically high 0.70-1.30 [facility] Comment on above: Performed By: #### P T #### [facility] [address] [place] [address] Dr. Curly Connell EGFR-AF VENEZUELAN >60 Normal >=60 [facility] Comment on above: Performed By: #### P T #### [facility] [address] [place] [address] [address] Curly Connell EGFR-NON AF VENEZUELAN 55 mL/min/1.73m2 Critically low >=60 [facility] Comment on above: Performed By: #### P T #### [facility] [address] [place] [address] Dr. Curly Connell Glucose [Mass/Vol] 122 mg/dL Critically high 74-106 [facility] Comment on above: Performed By: #### P T #### [facility] [address] [place] [address] Dr. Curly Connell Potassium [Moles/Vol] 4.9 mmol/L Normal 3.5-5.1 [facility] Comment on above: Performed By: #### P T #### [facility] [address] [place] [address] Dr. Curly Connell Sodium [Moles/Vol] 139 mmol/L Normal 136-145 [facility] Comment on above: Performed By: #### P T #### [facility] [address] [place] [address] Dr. Curly Connell Urea nitrogen [Mass/Vol] 26.0 mg/dL Critically high 7.0-18.0 [facility] Comment on above: Performed By: #### P T #### [facility] [address] [place] [address] Dr. Curly Connell Urea nitrogen/Creatinine [Mass ratio] 19.4 mg/mg Normal [facility] Comment on above: Performed By: #### P T #### [facility] [address] [place] [address] Dr. Curly Connell PROTIMEon 03-12-2022 INR Coag (PPP) [Relative time] 2.73 {INR} Normal [facility] Comment on above: Performed By: #### P T #### [facility] [address] [place] [address] Dr. Curly Connell INR GUIDELINES SEE BELOW Normal [facility] Comment on above: Result Comment: DAFNE RED INR: 2.0 - 3.0 CONDITIONS NOT LISTED BELOW 2.5 - 3.5 FOR PROSTHETIC HEART VALVE REPLACEMENT 2.5 - 3.5 RECURRENT THROMBOSIS Performed By: #### P T #### [facility] [address] [place] [address] [address] Curly Connell PT Coag (PPP) [Time] 27.6 s Critically high 9.0-11.6 [facility] Comment on above: Performed By: #### P T #### [facility] [address] [place] [address] Dr. Curly Connell NM STRESS/REST MULTIon 03-07 NM STRESS/REST MULTI Patient: DORIS LUIS Exam Date: 03/07/2022 : 1965 Gender:M Ordering : DR NOE CABALLERO . Admission #: [id number] Family : Order #: [id number] CLICK HERE TO VIEW EXAM RADIOLOGY REPORT [...] Humphreys MD on 03/08/2022 at 11:55 Normal [facility] ECHOCARDIO M/2D COMPLETEon 0 02-20-2022 ECHOCARDIO M/2D COMPLETE Patient: DORIS LUIS Exam Date: 02/20/2022 : 1965 Gender:M Ordering : DR NOE CABALLERO . Admission #: [id number] Family : Order #: [id number] CLICK HERE TO VIEW EXAM ECHOCARDIOGRAM REPORT [...] Pepe M.D. on 02/21/2022 at 12:46 Normal [facility] PROTIMEon 02-13-2022 INR Coag (PPP) [Relative time] 2.92 {INR} Normal [facility] Comment on above: Performed By: #### P T #### [facility] [address] [place] [address] [address] Curly Connell INR GUIDELINES SEE BELOW Normal [facility] Comment on above: Result Comment: DAFNE RED INR: 2.0 - 3.0 CONDITIONS NOT LISTED BELOW 2.5 - 3.5 FOR PROSTHETIC HEART VALVE REPLACEMENT 2.5 - 3.5 RECURRENT THROMBOSIS Performed By: #### P T #### [facility] [address] [place] [address] [address] Curly Connell PT Coag (PPP) [Time] 29.4 s Critically high 9.0-11.6 [facility] Comment on above: Performed By: #### P T #### [facility] [address] [place] [address] [address] Curly Connell CHEMISTRYOrdered By: Lab ROP User on 01-17-2022 Glucose [Mass/Vol] 121 mg/dL High 55 - 99 mg/dL [facility] P[facility] Subsection Comment on above: Result Comment: Asael thompson RN/ POC Device SN [id number] Invalid Interpretation Code [facility] Subsection POC User ID [id number] Invalid Interpretation Code [facility] Subsection POC Username FRASHER, SHANIKA Invalid Interpretation Code [facility] Subsection COAGULATIONOrdered By: Efrem Moscoso on 01-17-2022 aPTT Coag (PPP) [Time] 36.2 s Normal 25.1 - 36.5 second(s) [facility] Auto Coag INR Coag (PPP) [Relative time] 1.1 {INR} Invalid Interpretation Code [facility] Auto Coag PT Coag (PPP) [Time] 13.4 s High 10.2 - 12.9 second(s) [facility] Auto Coag CHEMISTRYOrdered By: Efrem soria on 01-11-2022 Anion gap [Moles/Vol] 12 mmol/L Normal 6 - 16 mEq/L [facility] Remisol Calcium [Mass/Vol] 9.1 mg/dL Normal 8.9 - 11. 1 mg/dL [facility] Chloride [Moles/Vol] 105 mmol/L Normal 101 - 1 11 mmol/L [facility] CO2 [Moles/Vol] 25 mmol/L Normal 21 - 31 mmol/L [facility] Creatinine [Mass/Vol] 1.0 mg/dL Normal 0.5 - 1.3 mg/dL [facility] Glucose [Mass/Vol] 152 mg/dL Normal 55 - 199 mg/dL [facility] Potassium [Moles/Vol] 4.3 mmol/L Normal 3.5 - 5.3 mmol/L [facility] Sodium [Moles/Vol] 138 mmol/L Normal 135 - 145 mmol/L [facility] Urea nitrogen [Mass/Vol] 17 mg/dL Normal 5 - 21 mg/dL [facility] Urea nitrogen/Creatinine [Mass ratio] 17 mg/mg Normal 10 - 20 [facility] CHEMISTRYOrdered By: SYSTEM SYSTEM on 01-11-2022 GFR/1.73 sq M.predicted among blacks MDRD (S/P/Bld) [Vol rate/Area] mL/min/1.73 m2 Normal >=59mL/min/1 .73 m2 [facility] Chem S GFR/1.73 sq M.predicted among non-blacks MDRD (S/P/Bld) [Vol rate/Area] mL/min/1.73 m2 Normal >=59mL/min/1 .73 m2 [facility] S COAGULATIONOrdered By: Jomar Cheema on 01-11-2022 aPTT Coag (PPP) [Time] 43.3 s High 25.1 - 36.5 second(s) [facility] Auto Coag INR Coag (PPP) [Relative time] 3.0 {INR} Invalid Interpretation Code [facility] Auto Coag PT Coag (PPP) [Time] 35.7 s High 10.2 - 12.9 second(s) [facility] Auto Coag HEMATOLOGYOrdered By: SYSTEM SYSTEM on 01-11-2022 Basophils/100 WBC (Bld) 0.5 % Normal 0.0 - 2.0 % [facility] HemeAutoSS Basophils/Leukocytes Auto (Bld) [Pure # fraction] 0.0 E9/L Normal 0.0 - 0.2 E9/L [facility]eAutoSS Eosinophils/100 WBC (Bld) 1.5 % Normal 0.0 - 8.0 % [facility] HemeAutoSS Eosinophils/Leukocytes Auto (Bld) [Pure # fraction] 0.1 E9/L Normal 0.0 - 0.5 E9/L [facility]eAutoSS Lymphocytes/100 WBC (Bld) 25.0 % Normal 14.0 - 50.0 % [facility] HemeAutoSS Lymphocytes/Leukocytes Auto (Bld) [Pure # fraction] 1.6 E9/L Normal 1.0 - 4.0 E9/L [facility] HemeAutoSS Monocytes/100 WBC (Bld) 7.6 % Normal 4.0 - 14.0 % [facility] HemeAutoSS Monocytes/Leukocytes Auto (Bld) [Pure # fraction] 0.5 E9/L Normal 0.2 - 1.0 E9/L [facility]eAuto[facility] Neutrophils/100 WBC (Bld) 65.4 % Normal 36.0 - 75.0 % [facility]eAutoSS Neutrophils/Leukocytes Auto (Bld) [Pure # fraction] 4.1 E9/L Normal 2.0 - 7.5 E9/L [facility] HEMATOLOGYOrdered By: Catalina Savage on 01-11-2022 Erythrocyte distribution width (RBC) [Ratio] 17.7 % High 10.9 - 14.2 % [facility]eAutoSS Hematocrit (Bld) [Volume fraction] 39.8 % Normal 37.7 - 49.0 % [facility]eAutoSS Hemoglobin (Bld) [Mass/Vol] 12.9 g/dL Low 13.5 - 17.5 gm/dL [facility] Hypochromia Auto Ql (Bld) Present (01/11/22 1:18 PM) Normal [facility]eManSS MCH (RBC) [Entitic mass] 24.5 pg Low 27.0 - 34.0 pg [facility] MCHC (RBC) [Mass/Vol] 32.4 g/dL Normal 31.4 - 36.0 gm/dL [facility] MCV (RBC) [Entitic vol] 75.5 fL Low 80.0 - 100.0 fL [facility] Morphology Lazaro (Bld) [Interp] See Morphology (01/11/22 1:18 PM) Normal [facility] Ovalocytes LM Ql (Bld) Present (01/11/22 1:18 PM) Normal [facility] Platelet mean volume (Bld) [Entitic vol] 8.8 fL Normal 6.4 - 10.8 fL [facility] Platelets (Bld) [#/Vol] 275.0 E9/L Normal 150.0 - 500.0 E9/L [facility] RBC (Bld) [#/Vol] 5.3 E12/L Normal 4.3 - 5.9 E12/L [facility] WBC corrected for nucl RBC Auto (Bld) [#/Vol] 6.2 E9/L Normal 4.0 - 11.0 E9/L [facility] URINALYSISOrdered By: Jomar ball on 01-11-2022 Bacteria [...] [#/Area] 0-2 /HPF Normal 0-2/HPF [facility] UA Aut o SS Glucose Test strip (U) [Mass/Vol] Negative (01/11/22 1:18 PM) Normal Negative [facility] UA Auto SS Hemoglobin Ql (U) Negative (01/11/22 1:18 PM) Normal Negative [facility] UA Auto SS Ketones (U) [Mass/Vol] Negative (01/11/22 1:18 PM) Normal Negative [facility] UA Auto SS Henagar.plasma/Henagar .RBC (Bld) [Mass ratio] 0-3 /HPF Normal 0-3/HPF [facility] UA Auto SS Mucus Ql (Urine sed) Trace (01/11/22 1:18 PM) Normal [facility] UA Auto SS Nitrite Ql (U) Negative (01/11/22 1:18 PM) Normal Negative [facility] UA Auto SS pH (U) 6.0 *NA* (01/11/22 1:18 PM) Invalid Interpretation Code 5.0 - 9.0 [facility] UA Auto SS Protein (U) [Mass/Vol] Negative (01/11/22 1:18 PM) Normal Negative [facility] UA Auto SS Specific gravity (U) [Rel density] 1.025 *NA* (01/11/22 1:18 PM) Invalid Interpretation Code 1.005 - 1.030 [facility] UA Auto SS UA Spec Desc Clean Catch (01/11/22 1:18 PM) Normal [facility] Auto SS Urobilinogen Qn (U) 0.8399293 {Rashida'U}/dL Normal 0.0 - 1.0 EU/dL [facility] UA Auto SS WBC Auto Ql (U) Negative (01/11/22 1:18 PM) Normal Negative [facility] UA Auto SS WBC LM.HPF (Urine sed) [#/Area] 0-5 /HPF Normal 0-5/HPF [facility] UA Auto SS OPERATIVE REPORTon 9 OPERATIVE REPORT [address] [id number] OPERATIVE REPORT PATIENT NAME: DORIS LUIS : 1965 MED REC NO: [id number] ROOM: 0505 ACCOUNT NO: [id number] ADMIT DATE: 01/18/2019 PROVIDER: Efrem Matson DATE OF PROCEDURE: 01/18/2019PREOPERATIV E DIAGNOSES: 1. Left L4-L5 disk herniation. 2. [...] little over 2 months. 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 The field was copiously irrigated with bacitracin-impregnate d irrigation. Hemostasis was obtained as necessary with [...] evidence of complication. EFREM MATSON [id number] Doc#: [id number] CC: Normal [facility] APTTon 01-18-2019 aPTT Coag time (Bld) 19.5 s Low 20.5-30.5 [facility] Comment on above: Result Comment: No c lot found in specimen, results questionable. TEST CONFIRMED Performed By: #### P T, PTT #### [address] [id number] Sewer Connector: Panchito Nguyen MD PTon 01-18-2019 INR Coag RelTime (PPP) 0.9 {INR} Normal [facility] Comment on above: Result Comment: Therapeutic Range: Moderate Anticoagulant Intensity: INR = 2.0-3.0 High Anticoagulant Intensity: INR = 2.5-3.5 No clot found in specimen, results questionable. Performed By: #### P T, PTT #### [address] [id number] Sewer Connector: Panchito Nguyen MD Prothrombin time (PT) Coag time (PPP) 9.5 s Normal 9.0-12.0 [facility] Comment on above: Result Comment: No c lot found in specimen, results questionable. Performed By: #### P T, PTT #### [address] [id number] Sewer Connector: Panchito Nguyen MD Type + Screenon 01-18-2019 Type + Screen Sample Expiration 01/21/2019 Arm Band Number [id number] ABO/Rh(D) A POSITIVE Antibody Screen NEGATIVE Normal [facility] Comment on above: Performed By: #### T YS #### [address] [id number] Sewer Connector: Panchito Nguyen MD XR LUMBAR SPINE (2-3 [...] Anup Guerrero MD 01/18/19 Final result Normal [facility] Vital Signs Date Time Vital Sign Value Performing Clinician Facility 08-29-2023 13:46-0500 Blood Pressure Location [facility] [place] 08-29-2023 13:46-0500 Diastolic blood pressure 78 mm[Hg] Jamil NILL [facility] [place] 08-29-2023 13:46-0500 Heart rate 72 /min Jamil NILL [facility] [place] 08-29-2023 13:46-0500 Respiratory rate 16 /min Jamil NILL [facility] [place] 08-29-2023 13:46-0500 Systolic blood pressure 126 mm[Hg] Jamil NILL [facility] [place] 03-12-2023 14:22-0400 Blood Pressure Location Jmail NILL [facility] [place] 03-12-2023 14:22-0400 Diastolic blood pressure 78 mm[Hg] Jamil NILL [facility] [place] 03-12-2023 14:22-0400 Heart rate 72 /min Jamil NILL [facility] [place] 03-12-2023 14:22-0400 Respiratory rate 16 /min Jamil NILL [facility] [place] 03-12-2023 14:22-0400 Systolic blood pressure 126 mm[Hg] Jamil DE LUNA [facility] [place] 07-03-2022 13:18-0400 Blood Pressure Location EDGAR NAVA [facility] 07-03-2022 13:18-0400 Diastolic blood pressure 76 mm[Hg] EDGAR NAVA [facility] 07-03-2022 13:18-0400 Heart rate 62 /min EDGAR CORADORY [facility] 07-03-2022 13:18-0400 Systolic blood pressure 128 mm[Hg] EDGAR NAVA [facility] 01-17-2022 12:56-0400 Blood Pressure Location [facility] 01-17-2022 12:56-0400 BP/Pulse Patient Position [facility] 01-17-2022 12:56-0400 Diastolic blood pressure 79 mm[Hg] [facility] 01-17-2022 12:56-0400 Heart rate 50 /min [facility] 01-17-2022 12:56-0400 Mean blood pressure 94 mm[Hg] [facility] 01-17-2022 12:56-0400 SaO2% (BldA) [Mass fraction] 96 % [facility] 01-17-2022 12:56-0400 Systolic blood pressure 125 mm[Hg] [facility] 01-17-2022 12:56-0400 Body temperature 97.52 [degF] [facility] 01-17-2022 12:01-0400 Blood Pressure Location [facility] 01-17-2022 12:01-0400 BP/Pulse Patient Position [facility] 01-17-2022 12:01-0400 Diastolic blood pressure 83 mm[Hg] [facility] 01-17-2022 12:01-0400 Heart rate 49 /min [facility] 01-17-2022 12:01-0400 Mean blood pressure 98 mm[Hg] [facility] 01-17-2022 12:01-0400 Respiratory rate 16 /min David Pacheco Jr. [facility] 01-17-2022 12:01-0400 SaO2% (BldA) [Mass fraction] 94 % David Pacheco Jr. [facility] 01-17-2022 12:01-0400 Systolic blood pressure 129 mm[Hg] David Pacheco Jr. [facility] 01-17-2022 12:01-0400 Body temperature 97.34 [degF] David Pacheco Jr. [facility] 01-17-2022 11:55-0400 Blood Pressure Location David Pacheco Jr. [facility] 01-17-2022 11:55-0400 Body temperature 97.34 [degF] David Pacheco Jr. [facility] 01-17-2022 11:55-0400 Diastolic blood pressure 81 mm[Hg] David Pacheco Jr. [facility] 01-17-2022 11:55-0400 Heart rate 50 /min David Pacheco Jr. [facility] 01-17-2022 11:55-0400 Respiratory rate 12 /min David Pacheco Jr. [facility] 01-17-2022 11:55-0400 SaO2% (BldA) [Mass fraction] 97 % David Pacheco Jr. [facility] 01-17-2022 11:55-0400 Systolic blood pressure 126 mm[Hg] David Pacheco Jr. [facility] 01-17-2022 11:40-0400 Respiratory rate 16 /min David Pacheco Jr. [facility] 01-17-2022 11:25-0400 Respiratory rate 18 /min David Pacheco Jr. [facility] 01-17-2022 11:00-0400 Respiratory rate 25 /min David Pacheco Jr. [facility] 01-17-2022 10:55-0400 Respiratory rate 26 /min David Pacheco Jr. [facility] 01-17-2022 08:12-0400 gluc 121 mg/dL David Pacheco Jr. [facility] 01-17-2022 07:52-0400 Body temperature 97.7 [degF] David Pacheco Jr. [facility] 01-17-2022 07:52-0400 BP/Pulse Patient Position David Pacheco Jr. [facility] 01-17-2022 07:52-0400 Mean blood pressure 95 mm[Hg] David Pacheco Jr. [facility] 01-17-2022 07:52-0400 Heart rate 48 /min David Pacheco Jr. [facility] 01-11-2022 12:42-0400 Diastolic blood pressure 81 mm[Hg] David Pacheco Jr. [facility] 01-11-2022 12:42-0400 Heart rate 44 /min David Pacheco Jr. [facility] 01-11-2022 12:42-0400 Mean blood pressure 97 mm[Hg] David Pacheco Jr. [facility] 01-11-2022 12:42-0400 Respiratory rate 16 /min David Pacheco Jr. [facility] 01-11-2022 12:42-0400 SaO2% (BldA) [Mass fraction] 98 % David Pacheco Jr. [facility] 01-11-2022 12:42-0400 Systolic blood pressure 131 mm[Hg] David Pacheco Jr. [facility] 01-11-2022 12:42-0400 Blood Pressure Location David Pacheco Jr. [facility] 01-11-2022 12:42-0400 Body temperature 97.7 [degF] David Pacheco Jr. [facility] 01-11-2022 12:40-0400 Blood Pressure Location David Pacheco Jr. [facility] 01-11-2022 12:40-0400 Diastolic blood pressure 90 mm[Hg] David Pacheco Jr. [facility] 01-11-2022 12:40-0400 Heart rate 46 /min David Pacheco Jr. [facility] 01-11-2022 12:40-0400 Mean blood pressure 108 mm[Hg] David Pacheco Jr. [facility] 01-11-2022 12:40-0400 Respiratory rate 16 /min David Pacheco Jr. [facility] 01-11-2022 12:40-0400 SaO2% (BldA) [Mass fraction] 98 % David Pacheco Jr. [facility] 01-11-2022 12:40-0400 Systolic blood pressure 144 mm[Hg] David Pacheco Jr. [facility] Encounters Encounter Date Encounter Type Care Provider Facility Start: 09-17-2023 End: 09-18-2023 ambulatory Jamil R NILL Facility:[id number] Start: 09-14-2023 Chart abstracting Generic Exte rnal Data Provider GENERIC EXTERNAL DATA DEPARTMENT Start: 08-29-2023 End: 08-30-2023 ambulatory Jamil R NILL Facility:[facility] Start: 08-29-2023 End: 08-29-2023 Patient encounter procedure Jamil R NILL General Surgery [facility] Start: 08-14-2023 End: 08-14-2023 ambulatory [facility] Start: 03-12-2023 End: 03-13-2023 ambulatory Jamil R NILL Facility:[facility] Start: 03-12-2023 End: 03-12-2023 Patient encounter procedure Jamil R NILL General Surgery Nill[facility] Start: 02-26-2023 End: 02-26-2023 ambulatory ALFIE RAZA Facility:[facility] Start: 02-19-2023 ambulatory Noe Caballero Facility:[facility] Start: 02-18-2023 End: 02-19-2023 ambulatory EDGARBEVERLY NAVA Facility[facility] Start: 02-18-2023 End: 02-19-2023 ambulatory EDGARBEVERLY NAVA Facility:[facility] Start: 02-04-2023 End: 02-05-2023 ambulatory SHANIA BHAT Facility:[facility] Start: 01-31-2023 End: 02-01-[address] NOE CABALLERO . Facility:[facility] Start: 01-31-2023 End: 01-31-2023 ambulatory SHANIA PERLITA [facility] Start: 01-21-2023 End: 01-22-2023 ambulatory EDGAR NAVA Facility:[facility] Start: 12-30-2022 End: 12-31-[address] NOE CABALLERO . Facility:[facility] Start: 10-14-2022 End: 10-15-[address] NOE CABALLERO . Facility:[facility] Start: 09-16-2022 End: 09-17-[address] NOE CABALLERO . Facility:[facility] Start: 08-07-2022 End: 08-28-[address] NOE CABALLERO . Facility:[facility] Start: 07-17-2022 End: 07-18-2022 ambulatory EDGARBEVERLY NAVA Facility:[facility] Start: 07-03-2022 End: 07-04-2022 ambulatory EDGAR CORADORY Facility:[facility] Start: 07-03-2022 End: 07-03-2022 Patient encounter procedure EDGARBEVERLY NAVA [facility] Start: 07-01-2022 End: 07-02-2022 ambulatory EDGARBEVERLY NAVA Facility:[facility] Start: 06-29-[address] NOE CABALLERO . Facili ty:[facility] Start: 06-05-2022 End: 06-29-[address] NOE CABALLERO . Facility:[facility] Start: 05-24-[address] NOE CABALLERO . Facili ty:[facility] Start: 05-01-2022 End: 05-29-[address] NOE CABALLERO . Facility:[facility] Start: 04-10-2022 End: 04-26-[address] NOE CABALLERO . Facility:[facility] Start: 03-25-2022 End: 03-29-[address] NOE CABALLERO . Facility: Start: 03-20-2022 End: 03-21-2022 ambulatory DAGOBERTO CORMIER Facility:[facility] Start: 03-18-2022 End: 03-19-2022 ambulatory SHANIA BHAT Facility: Start: 03-07-2022 End: 03-29-[address] NOE CABALLERO . Facility:[facility] Start: 03-07-2022 End: 03-08-[address] NOE CABALLERO . Facility:[facility] Start: 02-20-2022 End: 02-21-[address] NOE CABALLERO . Facility:[facility] Start: 01-17-2022 End: 01-17-2022 Admission to same day surgery center David Pacheco Jr. [facility] Start: 01-11-2022 End: 01-11-2022 Patient encounter procedure David Pacheco Jr. [facility] Start: 12-25-2021 End: 12-25-2021 Patient encounter procedure David Pacheco Jr. [facility] Start: 01-18-2019 End: 01-19-2019 Patient encounter procedure EFREM MATSON [facility] Procedures Date Procedure Procedure Detail Performing Clinician Start: 07-03-[address] SONIDO CABALLERO . Comment on above: Performed By: #### P T #### [facility] [address] [place] [address] Dr. Curly Connell Start: 01-17-2022 Fluoroscopy guided extracorporeal shockwave lithotripsy of calculus of left ureter [...] Jr. Start: 08-09-2019 Cystoscopic removal of ureteric stent David Pacheco Jr. Start: 07-22-2019 Cystoscopic insertio n of ureteric stent David Pacheco Jr. Comment on above: cysto, L stone extra ction, L stent placement Start: 07-12-2019 Placement of stent i n cardiac conduit David Pacheco Jr. Start: 01-19-2019 DISCHARGE PATIENT EFREM MATSON Start: 01-19-2019 Glucose blood reagent strip EFREM MATSON Start: 01-19-2019 Glucose blood reagent strip EFREM MATSON Start: 01-19-2019 INITIATE OXYGEN THER APY PROTOCOL EFREM MATSON Start: 01-18-2019 Glucose blood reagent strip EFREM MATSON Start: 01-18-2019 ACTIVITY TOLERATED Fide MATSON Start: 01-18-2019 AMBULATE PATIENT EFREM MATSON Start: 01-18-2019 DIET CARB CONTROL EFREM MATSON Start: 01-18-2019 FULL CODE EFREM Jasso Start: 01-18-2019 INITIATE OXYGEN THER APY PROTOCOL EFREM MATSON Start: 01-18-2019 NEURO/VASCULAR CHECKS Fide MATSON Start: 01-18-2019 PLACE INTERMITTENT P NEUMATIC COMPRESSION DEVICE EFREM MATSON Start: 01-18-2019 VITAL SIGNS EFREM Jasso Start: 01-18-2019 PATIENT STATUS (FROM ED OR OR/PROCEDURAL) EFREM MATSON Start: 01-18-2019 TRANSFER PATIENT EFREM MATSON Start: 01-18-2019 Glucose blood reagent strip EFREM MATSON Start: 01-18-2019 Radex spine lumbosac ral 2/3 views EFREM MATSON Start: 01-18-2019 Thromboplastin time partial plasma/whole blood EFREM MATSON Start: 01-18-2019 Calcium ionized EFREM Darling EWIS Start: 01-18-2019 Gluc bld gluc mntr d ev cleared fda spec home use EFREM MATSON Start: 01-18-2019 Potassium serum plas ma/whole blood EFREM MATSON Start: 01-18-2019 Sodium serum plasma or whole blood EFREM MATSON Start: 01-18-2019 TYPE AND SCREEN EFREM TREVINO Start: 01-18-2019 Prothrombin time EFREM MATSON Start: 11-14-2014 Colonoscopy Jamil BLOUNT LL Start: 07-06-2014 Cystoscopy and retro grade pyelography David Pacheco Jr. Start: 09-29-2009 Hemorrhoidectomy Nicanorae l NILL Cardiac catheterization Nicanor ael NILL Excision of lipoma Jamil ELIZABETH Extraction of cataract Heladio sánchez ANNAMARIE Angela filter, d evice (physical object) David Pacheco Jr. Angela filter, d evice (physical object) David Pacheco Jr. Hemorrhoidectomy David lyons Jr. History of operative procedure on knee David Pacheco Jr. History of operative procedure on lumbar spinal structure Jamil DE LUNA Removal of thrombus Jamil DE LUNA Repair of meniscus [facility]il [facility] Special back care David valdez Jr. Tonsillectomy David bradley Plan of Treatment Date Care Activity Detail Author Start: 10-30-2024 Diabetes Screening Diabetes Screenin g [facility] Start: 12-23-2023 ambulatory Ambulatory Facility:[facility] Start: 05-30-2023 Influenza vaccination Influenza Vacc ine (#1) [facility] Start: 2023 RSV Vaccine (1 - 1-d ose 60+ series) RSV Vaccine (1 - 1-dose 60+ series) [facility] Start: 09-29-2022 Depression Assessment Depression Ass essment [facility] Start: 2018 Prostate specific an tigen measurement Prostate Cancer Screening Discussion [facility] Start: 2013 Shingrix Vaccine (1 of 2) Adair grix Vaccine (1 of 2) [facility] Start: 2008 Screening for malign ant neoplasm of colon [facility] Start: 1998 Lipid panel Lipid Screening [facility] Start: 1982 Urine microalbumin profile DTaP,Tdap,Td Vaccine (1 - Tdap) [facility] Start: 1981 Hepatitis C screening Hepatitis C Sc reening [facility] Start: 1981 HIV screening HIV Screening [facility] Start: 1963 Covid-19 Vaccine (#1) Covid-19 Vacci ne (#1) [facility] Immunizations Immunization Date Immunization Notes Care Provider Renzo gatica 08-27-2017 influenza, unspecifi ed formulation EDGAR NAVA [facility] 08-27-2017 influenza virus vaccine, unspecified formulation Generic Provider [facility] 06-26-2016 influenza, unspecifi ed formulation EDGAR NAVA [facility] NEGATED: Highlighted row has not occurred!08-29-2023 influenza virus vaccine, unspecified formulation Jamil DE LUNA [facility] [place] Payers Date Payer Category Payer Medicare MEDICARE MEDICAR E A AND B [id number] 2017-Present [phone] [address] [address] [place] [address] Medicare [id number] 1965 Unknown [id number] 2.16.840.1.119076.3.579.2.175 1963 Unknown [id number] 2.16.840.1.563189.3.579.2.647 1963 Unknown [id number] 2.16.840.1.796630.3.579.2.593 1963 Unknown [id number] 2.16.840.1.146752.3.579.2.593 1963 Unknown [id number] 2.16.840.1.267437.3.579.2.593 1963 Unknown [id number] 2.16.840.1.638724.3.579.2.593 1963 Unknown [id number] 2.16.840.1.131643.3.579.2.59 1963 Unknown [id number] 2.16.840.1.650136.3.579.2.593 1963 Unknown [id number] 2.16.840.1.791830.3.579.2.59 1963 Unknown [id number] 2.16.840.1.181177.3.579.2.59 1963 Unknown [id number] 2.16.840.1.779664.3.579.2.59 1963 Unknown [id number] 2.16.840.1.112150.3.579.2.593 1963 Unknown [id number] 2.16.840.1.877561.3.579.2.593 1963 Unknown [id number] 2.16.840.1.547002.3.579.2.593 1963 Unknown [id number] 2.16.840.1.842962.3.579.2.593 1963 Unknown [id number] 2.16.840.1.871199.3.579.2.593 1963 Unknown [id number] 2.16.840.1.833557.3.579.2.593 1963 Unknown [id number] 2.16.840.1.336972.3.579.2.593 1963 Unknown [id number] 2.16.840.1.078030.3.579.2.593 1963 Unknown [id number] 2.16.840.1.298471.3.579.2.593 1963 Unknown [id number] 2.16.840.1.004319.3.579.2.593 1963 Unknown [id number] 2.16.840.1.144355.3.579.2.593 1963 Unknown [id number] 2.16.840.1.142847.3.579.2.593 1963 Unknown [id number] 2.16.840.1.395456.3.579.2.718 1963 Unknown [id number] 2.16.840.1.461930.3.579.2.727 1963 Unknown [id number] 2.16.840.1.342147.3.579.2.727 1963 Unknown [id number] 2.16.840.1.779788.3.579.2.727 1963 Unknown [id number] 2.16.840.1.667613.3.579.2.727 1963 Unknown [id number] 2.16.840.1.397652.3.579.2.727 1963 Unknown [id number] 2.16.840.1.177440.3.579.2.727 1961 Medicare [id number] 1961 Unknown [id number] Social History Date Type Detail Facility Start: 08-08-2021 Tobacco smoking status Never s moked tobacco (finding) [facility] Tobacco smoking status Never [facility] Sex Assigned At Male [facility] Start: 03-12-2023 End: 08-29-2023 Tobacco smoking status Ex-smoker (finding) [facility] [place] Start: 10-29-2021 Alcohol intake Current drinke r of alcohol (finding) [facility] Start: 1965 Sex Assigned At Not on file C [facility] Medical Equipment Procedure Code Equipment Code [...] Facility 08-29-2023 Functional Status N/A [facility] 03-12-2023 Functional Status N/A [facility] 07-03-2022 Functional Status N/A [facility] Clinical Notes 08-27-2021 to 08-29-2023 Note Date [...] managed by Dr Caballero. 2. 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 [facility] Comment on above: Result Comment: Elec tronically Signed By: ANNAMARIE ISRAEL, Jamil Maldonado\Date and Time Signed: 08/29/23 14:39 EST 08-14-[address] [facility] Cardiology Clinic Note Chief Complaint: Patient [...] since he came down with COVID in 2020 accompanied by severe bilateral deep venous thrombosis [...] disease, Deep vein thrombosis (CMS/HCC), Diabetes mellitus (CMS/HCC), Hyperlipidemia, and Hypertension. Surgical History He has [...] to, cardiopulmonary vas (more content not included)... [facility] 04-01-2023 Note Chief Complaint consultation for constipation [...] (08/09/2019), Cystoscopic insertion (more content not included)... [facility] Comment on above: Result Comment: Elec [...] at home: Medicines ? Take or apply ezgz-gpg-zgwshsk and prescription medicines only as told by [...] and water are not available, use hand investment advisor. ? Change your dressing as told by [...] by your health (more content not included)... [facility] 01-31-2023 Note Will send pt to pulm onology for evaluation and PFT's Reviewed recent echo 01/2022 and normal EF- LVSF; no significant valvular abnormalities and rt sided pressures. [facility] 01-31-2023 Note Sending for routine annual labs today in light he remains fasting, will add A1C to labs to assess glycemic management [facility] 01-31-2023 Note Hypertension is 130/ 91- States at home b/p is typically well controlled Continue all meds [facility] 01-31-2023 Note [facility] CARDIOLOGY PROGR ESS NOTE HPI: Doris Luis is a 57 y.o. 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 Admits continued shortness of breath with exertion- carrying items, bending over to cloth picker items, and with exercise. Denied orthopnea, [...] sided pressures Assessment/Plan: Coronary artery disease involving yurok coronary artery of yurok heart without angina pectoris Coronary artery disease [...] on warfarin anticoagulation (more content not included)... [facility] 01-31-2023 Note Patient here for 10 mo [...] All other systems reviewed and are negative. [facility] 01-31-2023 Note Remains on warfarin anticoagulation [facility] 01-31-2023 Note Continue crestor Script for lipid level and liver function provided to pt- will have drawn today [facility] 01-31-2023 Note Continue amlodipine [place] [facility] 01-31-2023 Note Coronary artery dise ase is stable without any concerning symptoms Continue GDMT- ASA, crestor, metoprolol, lisinopril continue risk factor modifications- heart healthy diet, regular exercise as tolerated and continue all medications. [facility] 07-03-2022 Hospital Discharge instructions Patient Education 07/03/2022 13:32:37 Kidney Stones, Bxvv-kl-Bbcf Kidney Stones Kidney stones are rock-like masses [...] Follow these instructions at home: Medicines Take cwuw-jbz-ntjifln and prescription medicines only as told by [...] 03/03/2009 Document Revised: 02/01/2020 Document Reviewed: 02/01/2020 [employer] Patient Education 2020 [employer] ([employer]). 07/03/2022 13:32:36 Calorie Counting for Weight Loss [...] 09/15/2006 Document Revised: 06/04/2019 Document Reviewed: 08/15/2017 [employer] Patient Education 2020 [employer] ([employer]). Follow Up Care 06/26/2021 10:22:59 With:LOLIS ALLEN, EDGAR Paniagua, URL Address: [address] [place] [address] When: Unknown [facility] 07-03-2022 Evaluation + Plan note Diagnostic Tests PendingPSA Total 07/03/22 [facility] 01-17-2022 Evaluation + Plan note Extrac jing from: Title:ANES POSTOP MAC/GEN NOTE Author:Fabián Robertson JR Date:01/17/22 Plan Transfer/ Discharge: Patient can be discharged from PACU when criteria met. Condition good. Extracted from: Title:ANES PREOP GEN ADULT NOTE Author:Fabián Turcios JR, DO Date:01/17/22 Plan [place] [employer] Anesthesiologists (ASA) physical status classification: Class III. Anesthetic Preoperative Plan Anesthesia: General. . Anesthetic plan, risks, benefits, and alternatives discussed with the patient and/or family. Pt. and/or family present and agree to proceed as planned.. Discussed the importance of abstaining from tobacco products, and offered counseling if desired. Future Appointments Appointment Date:2022 10:45:00 AM Scheduled Provider:David Pacheco Jr., MD Location:[facility] Appointment Type:URO Office Visit [facility]04-21-2022 Hospital Discharge instructions Patient Education 01/17/2022 [...] (CUSTOM) Follow Up Care 12/31/2021 11:37:23 With:EDGAR NAVA Address: [address] [place] [address] Business (1) When:6 weeks Comments:KUB x-ray with next visit. [facility]03-29-2022 Hospital Discharge instructions Patient Education 12/25/2021 [...] urethra. Follow these instructions at home: Take hozg-jrm-wtqjwpa and prescription medicines only as told by [...] 09/15/2006 Document Revised: 08/10/2019 Document Reviewed: 10/20/2017 [employer] Patient Education 2020 [employer] ([employer]). Follow Up Care 12/24/2021 14:06:11 With:Junior Mccollum MD, David Darling, URO Address: When: Unknown Comments:schedule ESWL [facility]20[facility] NoteHNO ID: [id number] Author: Tracey Eagle MD Service: ? Author Type: Physician Type: Progress Notes Filed: 08/27/2021 10:02 AM Note Text: [facility] [place] Patient: Doris Luis Provider Tracey Eagle MD : 1965 Location: [facility] Date of Service: August 27, 2021 [...] have confirmed and edited as necessary, the PFSH and ROS obtained by others. Lorraine Eagle [...] LUCACREA, LUCREACL, LWK, LUSUL in the last [id number] hours. 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 No current facility-administered medications for this visit.[facility] Future Appointments Appointment Date:2022 10:45:00 AM Scheduled Provider:Junior Mccollum MD, David Darling Location:[facility] Appointment Type:URO Office Visit [facility] evaluation + Plan note Future Appointments Appointment Date:01/17/2022 10:00:00 AM Scheduled Provider: Location:[facility] Appointment Type:Surgery FT Appointment Date:2022 10:45:00 AM Scheduled Provider:David Pacheco Jr., MD Location:[facility] Future Appointments Appointment Date:08/26/2023 10:00:00 AM Scheduled Provider:EDGAR NAVA PA-C Location:[facility] Appointment Type:URO Office Visit [facility] [place] Evaluation + Plan note Future Appointments Appointment Date:09/30/2023 02:30:00 PM Scheduled Provider:EDGAR NAVA PA-C Location:[facility] Appointment Type:URO Office Visit [facility] [place] Hospital course Narrative No data available for this section [facility] Hospital Discharge instructions No data available for this section [facility] No data available for this section [facility] Summary Purpose Family History No Family History [...] section and content) DATE CREATED AUTHOR 01/21/2019 [facility] DATE CREATED AUTHOR AUTHOR'S ORGANIZ ATION 11/06/[address] 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 [employer] provides no warranty or guarantee of the accuracy or completeness of information in this document.
== END 2023-12-13 08:57 | disposition home or self-care (01) ==
LOC: US 08:57
PROVIDERS: PCP Family Medicine; Visit Provider Physician Assistant
DX: N20.0 Calculus of kidney (principal); N28.1 Cyst of kidney, acquired
CPT/HCPCS: 76775

== ENCOUNTER 2024-02-18 12:31 | Outpatient (OUT) | payer MEDICARE, SELFPAY ==
[2024-02-18 13:08] LABS: Anion Gap 10.4; Carbon Dioxide 28.5 mmol/L (21.0-32.0); Chloride 106 mmol/L (98-107); Potassium 4.9 mmol/L (3.5-5.1); Sodium 140 mmol/L (136-145)
== END 2024-02-18 12:32 | disposition home or self-care (01) ==
LOC: LAB 12:33
PROVIDERS: PCP Family Medicine; Visit Provider Nurse Practitioner Family
DX: N20.0 Calculus of kidney (principal)
CPT/HCPCS: 36415; 80051

== ENCOUNTER 2024-03-16 11:00 | Outpatient (OUT) | payer MEDICARE, SELFPAY ==
[2024-03-16 11:34] LABS: Basophils Absolute Auto 0.1 10^3/uL (0.0-0.1); Basophils Percent Auto 0.7 % (0.2-2.0); Eosinophils Absolute Auto 0.1 10^3/uL (0.0-0.7); Eosinophils Percent Auto 1.4 % (0.9-7.0); Hematocrit 43.6 % (42.0-54.0); Immature Granulocytes Abs Auto 0.03 10^3/uL (0.00-0.03); Immature Granulocytes Pct Auto 0.3 % (0.0-0.5); Lymphocytes Absolute Auto 2.3 10^3/uL (1.2-3.8); Lymphocytes Percent Auto 23.6 % (20.5-60.0); Mean Corpuscular HGB Conc 29.8 g/dL (29.9-35.2); Mean Corpuscular Hemoglobin 21.8 pg (25.9-34.0); Mean Corpuscular Volume 73.2 fL (80.0-94.0); Mean Platelet Volume 9.7 fL (9.5-13.5); Monocytes Absolute Auto 0.8 10^3/uL (0.3-0.8); Neutrophils Absolute Auto 6.5 10^3/uL (1.4-6.5); Platelet Count 377 10^3/uL (150-450); Red Blood Count 5.96 10^6/uL (4.70-6.10); Red Cell Distribution Width 20.2 % (11.0-15.0); White Blood Count 9.9 10^3/uL (4.0-11.0)
--- NOTE | 2024-03-16 11:35 | XR_ITS ---
The [place] [id number] Patient Name: DORIS PARKER MRN: [id number] date: 1965 Sex: M Assigned Patient Location: LAB Current Patient Location: Accession/Order Number: [id number] Exam Date: 03/16/2024 11:45 Report Date: 03/17/2024 12:16 At the request of: NOE CABALLERO Procedure: XR lumbar spine 2-3V EXAMINATION: XR lumbar spine 2-3V HISTORY: Hip Pain ; low back pain radiating into hips and legs COMPARISON: No relevant comparison available. FINDINGS: BONES: Partial lumbarization of S1. No fracture or listhesis. DISC SPACES: Multilevel mild narrowing. PARASPINOUS: Negative. No paraspinous abnormality is seen. OTHER: Filter in IVC. XR/XR lumbar spine 2-3V IMPRESSION: 1. Multilevel mild degenerative changes. Electronically authenticated by: MASON NESBITT Date: 03/17/2024 12:16
--- NOTE | 2024-03-16 11:35 | XR_ITS ---
The [address] [address] Patient Name: DORIS PARKER MRN: [id number] date: 1965 Sex: M Assigned Patient Location: LAB Current Patient Location: LAB Accession/Order Number: [id number] Exam Date: 03/16/2024 11:45 Report Date: 03/17/2024 12:54 At the request of: NOE CABALLERO Procedure: XR hip JOSIAS EXAMINATION: XR hip JOSIAS HISTORY: Hip Pain COMPARISON: No relevant comparison available. FINDINGS: RIGHT FINDINGS: BONES: No significant arthropathy or acute abnormality. SOFT TISSUES: No visible soft tissue swelling. OTHER: Negative. LEFT FINDINGS: BONES: No significant arthropathy or acute abnormality. SOFT TISSUES: No visible soft tissue swelling. OTHER: Negative. XR/XR hip JOSIAS IMPRESSION: RIGHT CONCLUSION: No acute bone abnormality. No significant degenerative joint disease. LEFT CONCLUSION: No acute bone abnormality. No significant degenerative joint disease. Electronically authenticated by: MASON NESBITT Date: 03/17/2024 12:54
[2024-03-16 11:43] LABS: Estimated Average Glucose 160 mg/dL; Glycohemoglobin A1C 7.2 % (4.5-6.2)
[2024-03-16 12:06] LABS: Alanine Aminotransferase 29 U/L (16-63); Albumin Globulin Ratio 0.9; Albumin Level 3.6 g/dL (3.4-5.0); Alkaline Phosphatase 59 U/L (46-116); Anion Gap 15.8; Aspartate Amino Transferase 16 U/L (15-37); BUN Creatinine Ratio 13.5; Bilirubin Total 0.4 mg/dL (0.2-1.0); Calcium 8.6 mg/dL (8.5-10.1); Carbon Dioxide 24.8 mmol/L (21.0-32.0); Chloride 104 mmol/L (98-107); Chol HDL Ratio 3.5; Cholesterol 169 mg/dL (<=200); Estimated GFR (African America >60 (>=60); Estimated GFR (Non-African Ame 51 (>=60); Free T3 2.64 pg/mL (2.18-3.98); Globulin 4.2 g/dL; Glucose 151 mg/dL (74-106); HDL Cholesterol 48 mg/dL (40-60); Potassium 4.6 mmol/L (3.5-5.1); Sodium 140 mmol/L (136-145); Thyroid Stimulating Hormone 3.715 uIU/mL (0.358-3.740); Total Protein 7.8 g/dL (6.4-8.2); Triglycerides 193 mg/dL (<=150); VLDL CHOLESTEROL 38.6 mg/dL
[2024-03-16 12:17] LABS: Prostate Specific Antigen Dx 2.03 ng/mL (<=4.00)
== END 2024-03-16 11:01 | disposition home or self-care (01) ==
PROVIDERS: PCP Family Medicine; Visit Provider Family Medicine
DX: E78.5 Hyperlipidemia, unspecified (principal); M25.551 Pain in right hip; M25.552 Pain in left hip; R53.83 Other fatigue; R73.09 Other abnormal glucose; I10 Essential (primary) hypertension; Z12.5 Encounter for screening for malignant neoplasm of prostate
CPT/HCPCS: 36415; 72100; 73522; 80053; 80061; 83036; 84153; 84436; 84443; 84481; 85025

== ENCOUNTER 2024-03-16 11:02 | Outpatient (OUT) | payer OTHER, SELFPAY ==
[2024-03-16 12:16] LABS: INR 2.85; Prothrombin Time 27.2 sec (9.0-11.6)
== END 2024-03-16 11:03 | disposition home or self-care (01) ==
PROVIDERS: PCP Family Medicine; Visit Provider Family Medicine
DX: I82.91 Chronic embolism and thrombosis of unspecified vein (principal)
CPT/HCPCS: 36415; 85610

== ENCOUNTER 2024-03-18 14:29 | Outpatient (OUT) | payer MEDICARE, SELFPAY ==
--- OUTSIDE RECORDS SUMMARY | 2024-03-18 14:50 | XMS_ITS | CCD ---
Author Organization [facility] Care Team Providers Care Computer Typesetter Name Role Phone EFREM MATSON Admitting Unavailable EFREM MATSON Attending Unavailable DELON CABALLERO Primary Care Unavailable Delon Caballero Primary Care Physician DAGOBERTO CORMIER Admitting Unavailable DAGOBERTO CORMIER Attending Unavailable DELON CABALLERO Primary Care Unavailable DELON CABALLERO Referring Unavailable HOY ., DR LIU Admitting Unavailable HOY ., DR LIU Attending Unavailable HOY ., DR LIU Referring Unavailable HOY ., DR LIU Primary Care Unavailable HOY ., DR LIU Consulting Unavailable HOY ., DR LIU Admitting Unavailable HOY ., DR LIU Attending Unavailable HOY ., DR LIU Primary Care Unavailable HOY ., DR LIU Consulting Unavailable STONEWALL, DR EFREM Ventura Consulting Unavailable HOY ., [...] HOY ., DR LIU Primary Care Unavailable [facility], DR MASON Braun Consulting Unavailable ELIJAH, EDGAR [...] Primary Care Unavailable HOY ., DR LIU Admitting Unavailable [...] SLAUGHTER Admitting Unavailable ALFIE SLAUGHTER Attending Unavailable HOALEXANDER TopeteLAS Primary Care Unavailable SHANIA BHAT Attending Unavailable DAGOBERTO CORMIER Attending Unavailable Delon Caballero MD Primary Care Provider Delon Caballero MD Unavailable Jamil DE LUNA Attending Unavailable Orzech, Elsy X Attending Unavailable ALEJANDRO DANIELLE Attending Unavailab le Orzech, Elsy X Attending Unavailable Orzech, Elsy X Admitting Unavailable Orzech, Elsy X Attending Unavailable Orzech, Elsy X Admitting Unavailable Orzech, Elsy X Attending Unavailable ALEJANDRO DANIELLE Admitting Unavailab ALEJANDRO Funez Attending Unavailab le Jamil DE LUNA Attending Unavailable NILLJamil Attending Unavailable Delon Caballero Referring Unavailable Delon Caballero Referring Unavailable BOLALJamil Attending Unavailable Allergies Allergy Classification Reported Allergen(s) Allergy Type Date of Onset Reaction(s) Facility (10 sources) Acetaminophen / HYDROcodone; Translations: [acetaminophen-hy drocodone] Drug Allergy Hallucinations (finding), Migraine (disorder) [facility] (14 sources) Penicillins; Translations: [penicillins] Drug allergy 4 Weal (disorder) [facility] (10 sources) Sulfonamides (Antibiotic); Translations: [sulfa drugs] Drug allergy Weal (disorder) [facility] (1 source) Acetaminophen / HYDROcodone Drug Allergy [facility] (2 sources) Sulfonamides (Antibiotic) Drug allergy (disorder) 5 [facility] (1 source) Penicillin; Translations: [penicillin] Drug Allergy [facility] Medications Current Medications Medication Drug Class(es) [...] Dosing Start Date: 01/17/22 Status: Ordered Albuterol (4 sources) beta2-Adrenergic Agonist Start: 08-15-2023 take 2 puff(s) [...] Status: Ordered celecoxib 200 mg oral capsule (9 sources) Nonsteroidal Anti-inflammatory Drug Start: 01-11-2022 take [...] tablet (1 source) Quinolone Antimicrobial Start: End: take 1 tablet by mouth every twelve hours Cipro 500 mg Tab 500 mg = 1 tab(s), Oral, q12hr, X 3 day(s), # 6 tab(s), Refills(s) 0, Pharmacy: [address], 178, cm, 01/11/22 13:03:00 EDT, Height/Length [...] Status: Ordered lisinopril 30 mg oral tablet (10 sources) Angiotensin Converting Enzyme Inhibitor Start: take 1 tablet by mouth once daily lisinopril 30 mg Tab 30 mg = 1 tab(s), Oral, Daily, Refills(s) 0 Start Date: 03/12/23 Status: Ordered Comment on above: Take 30 mg by mouth daily. metFORMIN hydrochloride 500 mg oral tablet (6 sources) Biguanide Start: take 1 tablet by mouth once [...] meals. metoprolol tartrate 100 mg oral tablet (10 sources) beta-Adrenergic Apolinar Start: 02-26-2023 take 1 [...] mg by mouth daily. multivitamin with iron (4 sources) Start: 3 take 1 tablet by mouth once daily multivitamin with iron 1 tab(s), Oral, Daily, Refill(s) 0 Start Date: 08/15/23 Status: Ordered omeprazole 20 mg delayed release oral capsule (7 sources) Proton Pump Inhibitor Start: 1 omeprazole [...] stomach acid Start Date: 09/13/21 Status: Ordered potassium citrate 10 meq extended release oral tablet (3 sources) Start: 12-30-2023 End: 07-27-2024 Urocit-K 10 mEq Tab-ER 10 mEq, 1 tab(s), Oral, BID for 30 day(s), 60 tab(s), Refill(s) 6, [employer], 178, cm, 12/30/23 11:22:00 EDT, Height/Length Dosing, 109, kg, 12/30/23 11:22:00 EDT, Weight Dosing Start Date: 12/30/23 Stop Date: 07/27/24 Status: Ordered rosuvastatin calcium 40 mg oral tablet (8 sources) HMG-CoA Reductase Inhibitor Start: 08-15-2023 take [...] mouth daily. SUMAtriptan 25 mg oral tablet (9 sources) Serotonin-1b and Serotonin-1d Receptor Agonist Start: [...] Vitamin D3 5000 intl units oral capsule (8 sources) Start: 01-11-2022 take 1 capsule by mouth once daily at mealtime Vitamin D3 5000 intl units oral capsule 125 mcg = 1 cap(s), Oral, Daily, with food, Prophylaxis Start Date: 01/11/22 Status: Ordered warfarin sodium 4 mg oral tablet (15 sources) Vitamin K Antagonist Start: 01-11-2022 Coumadin [...] venlafaxine 75 mg extended release oral capsule (10 sources) Serotonin and Norepinephrine Reuptake Inhibitor Start: 08-29-2020 take 1 capsule by mouth once daily venlafaxine 75 mg Cap-ER 75 mg = 1 cap(s), Oral, Daily, take 1 capsule by mouth once daily, Anxiety Start Date: 08/29/20 Status: Ordered Start: 08-29-2020 take 1 capsule by [facility] once daily venlafaxine 75 mg Cap-ER 75 mg = 1 cap(s), Oral, Daily, take 1 capsule by mouth once daily, Anxiety Start Date: 08/29/20 Status: Ordered take 1 tablet by [facility] twice daily venlafaxine (EFFEXOR) 75 mg [...] Date Documented Da te Episodic/Chronic Abdominal pain (9 sources) Flank pain 06-26-2021 Episodic Anxiety disorders (18 sources) Anxiety; Translations: [Anxiety disorder] 05-25-2019 Chronic Calculus of urinary tract (20 sources) Kidney stone; Translations: [Calculus of kidney] Onset: 2 Episodic Coagulation and hemorrhagic disorders (8 sources) Antiphospholipid syndrome; Translations: [Antiphospholipid syndrome] Onset: 2 02-26-2023 Chronic Coronary atherosclerosis and other heart disease (19 sources) Coronary arteriosclerosis; Translations: [Atherosclerotic heart disease of [place] coronary artery without angina pectoris] Onset: 2 07-19-2019 Chronic Diabetes mellitus with complications (3 sources) Type 2 diabetes mellitus with other specified complication; Translations: [TYPE 2 DM W/OTHER SPEC COMPLICATION] Onset: 3 Chronic Diabetes mellitus without complication (9 sources) Diabetes mellitus 05-25-2019 Chronic Disorders of lipid metabolism (20 sources) Hypercholesterolemia; Translations: [Hyperlipidemia, unspecified] Onset: 3 05-25-2019 Chronic Esophageal disorders (13 sources) Gastroesophageal reflux disease 07-22-2019 Chronic Essential hypertension (20 sources) Hypertensive disorder; Translations: [Essential (primary) hypertension] Onset: 2 07-22-2019 Chronic Gastrointestinal hemorrhage (5 sources) Hemorrhage of rectum and anus; Translations: [Hemorrhage of anus and rectum] Onset: 3 Episodic Genitourinary symptoms and ill-defined conditions (19 sources) Osiel hematuria; Translations: [Microscopic hematuria] Onset: 2 07-19-2019 Episodic Headache; including migraine (5 sources) Migraine 02-26-2023 Chronic Hyperplasia of prostate (20 sources) Benign prostatic hypertrophy without outflow obstruction; Translations: [Benign prostatic hyperplasia without lower urinary tract symptoms] Onset: 2 Chronic Nutritional deficiencies (4 sources) Vitamin D deficiency 08-15-2023 Chronic Other aftercare (2 sources) Long-term current use of anticoagulant; Translations: [alf (current) use of 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] Onset: 2 Episodic Other diseases of kidney and ureters (1 source) Urinary tract obstruction; Translations: [Hydronephrosis with renal and ureteral calculous obstruction] Onset: 2 Episodic Other diseases of kidney and ureters (3 sources) Acquired renal cyst without neoplastic change; Translations: [Cyst of kidney, acquired] Onset: 2 Episodic Other diseases of kidney and ureters (9 sources) Cyst of kidney 08-29-2020 Episodic Other diseases of kidney and ureters (18 sources) Hydronephrosis 06-26-2021 Episodic Other diseases of kidney and ureters (5 sources) Hydronephrosis with renal and ureteral calculous obstruction; Translations: [HYDRONPHROS RENL AND URETRL CALCUL OBST] Onset: 2 Episodic Other gastrointestinal disorders (1 source) Constipation 02-26-2023 Episodic Other gastrointestinal disorders (4 sources) Altered bowel function 08-15-2023 Episodic Other nutritional; endocrine; and metabolic disorders (2 sources) Obese class I; Translations: [Body mass index (BMI) 33.0-33.9, adult] Onset: 2 Chronic Other nutritional; endocrine; and metabolic disorders (6 sources) Body mass index 30+ - obesity 07-03-2022 Chronic Other nutritional; endocrine; and metabolic disorders (3 sources) Obesity, unspecified; Translations: [OBESITY UNSPECIFIED] Onset: 3 Chronic Other nutritional; endocrine; and metabolic disorders (5 sources) Obesity 02-26-2023 Chronic Other screening for suspected conditions (not mental disorders or infectious disease) (14 sources) Abnormal quantity of physiologic substance; Translations: [Abnormal result of other cardiovascular function study] Onset: 2 09-13-2021 Episodic Phlebitis; thrombophlebitis and thromboembolism (4 sources) Chronic embolism and thrombosis of unspecified vein; Translations: [CHRON EMBOLISM THROMBOSIS UNS VEIN] Onset: 3 Chronic Phlebitis; thrombophlebitis and thromboembolism (14 sources) Deep venous thrombosis; Translations: [H/O: embolism] 09-13-2021 Episodic Rheumatoid arthritis and related disease (4 sources) Rheumatoid arthritis 08-15-2023 Chronic Screening and history of mental health and substance abuse codes (4 sources) Ex-tobacco user 08-15-2023 Episodic Spondylosis; intervertebral disc disorders; other back problems (5 sources) Radiculopathy, lumbar region; Translations: [Lumbar radiculopathy] Onset: 9 08-15-2023 Episodic Thyroid disorders (4 sources) Hypothyroidism 08-15-2023 Chronic Unclassified (9 sources) Drug therapy finding 07-19-2019 Unclassified (1 source) CONTACT W/AND (SUSP) EXPOS COVID-19; Translations: [CONTACT W/AND (SUSP) EXPOS COVID-19] Onset: 2 Unclassified (3 sources) Patient encounter status 12-29-2023 Past or Other Problems Problem Classification Problem Date Documented Da te Episodic/Chronic Nonspecific chest pain (4 sources) Chest pain, unspecified; Translations: [CHEST PAIN UNSPECIFIED] Onset: 03-07-2022 Episodic Other aftercare (1 source) Encounter for therapeutic drug level monitoring; Translations: [ENC THERAPEUTC DRUG LEVL MONITORING] Onset: 09-24-2022 Episodic Other aftercare (1 source) 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; Translations: [PRISON CURRNT USE ANTICOAGULANTS] Onset: 09-24-2022 Episodic Other lower respiratory disease (3 sources) Other forms of dyspnea; Translations: [OTHER FORMS OF DYSPNEA] Onset: 01-31-2023 Episodic Results Test Name Value Interpretation Reference Range Facility Ambulatory Visit Summaryon 0 02-10-2024 Ambulatory Visit Summary DORIS LUSI :1965 Visit Date:02/10/2024 Ambulatory Visit Instructions Your Diagnosis Kidney stone Your Care Team Attending Physician - XIOMARA England APRN, Elsy Skaggs Primary Care Physician - Delon Caballero MD This Is Your Medications List albuterol (Albuterol (Eqv-ProAir HFA)) celecoxib (CeleBREX 200 mg Cap) cholecalciferol (Vitamin D3 5000 intl units oral capsule) lisinopril (lisinopril 30 mg Tab) metoprolol (metoprolol tartrate 100 mg Tab) multivitamin with iron omeprazole (omeprazole 20 mg Cap-DR) potassium citrate (Urocit-K 10 mEq Tab-ER) rosuvastatin (rosuvastatin 40 mg Tab) sumatriptan (Imitrex 25 mg Tab) venlafaxine (venlafaxine 75 mg Cap-ER) warfarin (Coumadin 4 mg Tab) Procedures Performed Ultrasound of kidney (12/13/2023), Fluoroscopy guided ESWL (extracorporeal shockwave lithotripsy) of calculus of left ureter (01/17/2022), Cystoscopy (09/20/2021), Cystoscopy (07/10/2021), ESWL of kidney (01/08/2021), ESWL of kidney (11/06/2020), Cystoscopic removal of ureteric stent (08/09/2019), Cystoscopic insertion of ureteric stent (07/22/2019), Placement of stent in cardiac conduit (07/12/2019), Colonoscopy (11/14/2014), Cystoscopy and retrograde pyelography (07/06/2014), Hemorrhoidectomy (2009), Cardiac catheterization, Cataract extraction, Excision of lipoma, [place] filter, History of lumbar spine surgery, Meniscal repair, Thrombectomy, Tonsillectomy. Medications What How Much When Instructions Unchanged albuterol (Albuterol (Eqv-ProAir HFA)) 2 Puffs Inhalation Every 4 hours as needed for Shortness of breath or wheezing Unchanged celecoxib (CeleBREX 200 mg Cap) 1 Capsules By Mouth Every day Unchanged cholecalciferol (Vitamin D3 5000 intl units oral capsule) 1 Capsules By Mouth Every day with food Unchanged lisinopril (lisinopril 30 mg Tab) 1 Tablets By Mouth Every day Unchanged metoprolol (metoprolol tartrate 100 mg Tab) 1 Tablets By Mouth 2 times a day Unchanged multivitamin with iron 1 Tablets By Mouth Every day Unchanged omeprazole (omeprazole 20 mg Cap-DR) 2 Capsules By Mouth Every day Unchanged potassium citrate (Urocit-K 10 mEq Tab-ER) 1 Tablets By Mouth 2 times a day Duration: 30 Days Unchanged rosuvastatin (rosuvastatin 40 mg Tab) 1 Tablets By Mouth Once a day (at bedtime) Unchanged sumatriptan (Imitrex 25 mg Tab) 1 Tablets By Mouth Once Unchanged venlafaxine (venlafaxine 75 mg Cap-ER) 1 Capsules By Mouth Every day take 1 capsule by mouth once daily Unchanged warfarin (Coumadin 4 mg Tab) 1 Tablets By Mouth As Directed Allergies Vicodin (Hallucinations, Migraine) penicillins (Hives) sulfa drugs (Hives) Problems Ongoing - Any problem that you are currently receiving treatment for. Anticoagulated Antiphospholipid antibody syndrome Anxiety Asymptomatic microscopic hematuria Bilateral nephrolithiasis BMI 33.0-33.9,adult BPH without obstruction/lower urinary tract symptoms Coronary artery disease Diabetes Former tobacco use GERD (gastroesophageal reflux disease) Gross hematuria History of DVT (deep vein thrombosis) Hypercholesterolemia Hyperlipidemia Hypertension Hypothyroidism Kidney stone Lumbar radiculopathy Migraines Obesity Prostate cancer screening Rectal bleeding Renal cyst Rheumatoid arthritis Ureteral stone Ureteral stone with hydronephrosis Vitamin D deficiency Historical - Any problem that you are no longer receiving treatment for. Anxiety disorder Constipation Deep vein thrombosis Elevated cholesterol Enlarged prostate with urinary obstruction Flank pain Gastroesophageal reflux disease History of kidney stones Hydronephrosis with obstructing calculus Hypertension Kidney stones Nephrolithiasis Renal calculus Patient Survey You may receive a survey via text or e-mail asking about your office visit. Please share your experience with us by completing your survey. We appreciate your feedback and thank you for choosing us for your care. Normal [facility] Formson 12-31-2023 Forms [id number] Normal [facility] CHEMISTRYOrdered By: SYSTEM SYSTEM on 12-30-2023 Prostate specific Ag [Mass/Vol] 1.7 ng/mL Normal 0.1 - 3.5 ng/mL Remisol Chem Comment on above: Interpretive Data: T he concentration of PSA determined by different manufacturers can vary due to differences in assay methods and reagent specificity. Values obtained from different assay methods cannot be used interchangeably. The methodology used for this result was chemiluminescence using [employer]'s Access Hybritech PSA reagent. PSA Screen, Totalon 12-30-19 Prostate specific Ag [Mass/Vol] 1.7 ng/mL Normal 0.1-3.5 [facility] Comment on above: Result Comment: The concentration of PSA determined by different manufacturers can vary due to differences in assay methods and reagent specificity. Values obtained from different assay methods cannot be used interchangeably. The methodology used for this result was chemiluminescence using Jamaal Sujit's Access Hybritech PSA reagent. Performed By: #### [id number] ####[facility] [id number] [place] [address] Patient Educationon 12-30-19 Patient Education Nephrology Dietary Guidelines to Help Prevent Kidney Stones Kidney stones are deposits of minerals and salts that form inside your kidneys. Your risk of developing kidney stones may be greater depending on your diet, your lifestyle, the medicines you take, and whether you have certain medical conditions. Most people can lower their risks of developing kidney stones by following these dietary guidelines. Your dietitian may give you more specific instructions depending on your overall health and the type of kidney stones you tend to develop. What are tips for following this plan? Reading food labels ? Choose foods with no salt added or low-salt labels. Limit your salt (sodium) intake to less than 1,500 mg a day. ? Choose foods with calcium for each meal and snack. Try to eat about 300 mg of calcium at each meal. Foods that contain 200?500 mg of calcium a serving include: ? 8 oz (237 mL) of milk, calcium-fortifiednon- dairy milk, and calcium-fortifiedfrui t juice. Calcium-fortified means that calcium has been added to these drinks. ? 8 oz (237 mL) of kefir, yogurt, and soy yogurt. ? 4 oz (114 g) of tofu. ? 1 oz (28 g) of cheese. ? 1 cup (150 g) of dried figs. ? 1 cup (91 g) of cooked broccoli. ? One 3 oz (85 g) can of sardines or mackerel. Most people need 1,000?1,500 mg of calcium a day. Talk to your dietitian about how much calcium is recommended for you. Shopping ? Buy plenty of fresh fruits and vegetables. Most people do not need to avoid fruits and vegetables, even if these foods contain nutrients that may contribute to kidney stones. ? When shopping for convenience foods, choose: ? Whole pieces of fruit. ? Pre-made salads with dressing on the side. ? Low-fat fruit and yogurt smoothies. ? Avoid buying frozen meals or prepared deli foods. These can be high in sodium. ? Look for foods with live cultures, such as yogurt and kefir. ? Choose high-fiber grains, such as whole-wheat breads, oat bran, and wheat cereals. Cooking ? Do not add salt to food when cooking. Place a salt shaker on the table and allow each person to add their own salt to taste. ? Use vegetable protein, such as beans, textured vegetable protein (TVP), or tofu, instead of meat in pasta, casseroles, and soups. Meal planning ? Eat less salt, if told by your dietitian. To do this: ? Avoid eating processed or pre-made food. ? Avoid eating fast food. ? Eat less animal protein, including cheese, meat, poultry, or fish, if told by your dietitian. To do this: ? Limit the number of times you have meat, poultry, fish, or cheese each week. Eat a diet free of meat at least 2 days a week. ? Eat only one serving each day of meat, poultry, fish, or seafood. ? When you prepare animal proteins, cut pieces into small portion sizes. For most meat and fish, one serving is about the size of the palm of your hand. ? Eat at least five servings of fresh fruits and vegetables each day. To do this: ? Keep fruits and vegetables on hand for snacks. ? Eat one piece of fruit or a handful of berries with breakfast. ? Have a salad and fruit at lunch. ? Have two kinds of vegetables at dinner. ? You may be told to limit foods that are high in a substance called oxalate. These include: ? Spinach (cooked), rhubarb, beets, sweet potatoes, and [place] chard. ? Peanuts. ? Potato chips, mauritian fries, and baked potatoes with skin on. ? Nuts and nut products. ? Chocolate. ? If you regularly take a diuretic medicine, make sure to eat at least 1 or 2 servings of fruits or vegetables that are high in potassium each day. These include: ? Avocado. ? Banana. ? [place], prune, carrot, or tomato juice. ? Baked potato. ? Cabbage. ? Beans and split peas. Lifestyle ? Drink enough fluid to keep your urine pale yellow. This is the most important thing you can do. Spread your fluid intake throughout the day. ? If you drink alcohol: ? Limit how much you have to: ? 0?1 drink a day for women who are not . ? 0?2 drinks a day for men. ? Know how much alcohol is in your drink. In the [place] one drink equals one 12 oz bottle of beer (355 mL), one 5 oz glass of wine (148 mL), or one 1? oz glass of hard liquor (44 mL). ? Lose weight if told by your health care provider. Work with your dietitian to find an eating plan and weight loss strategies that work best for you. General information ? Talk to your health care provider and dietitian about taking daily supplements. Depending on your health and the cause of your kidney stones, you may be told: ? Do not take high-dose supplements of vitamin C (1,000 mg a day or more). ? To take a calcium supplement. ? To take a daily probiotic supplement. ? To take other supplements such as magnesium, fish oil, or vitamin B6. ? Take wisn-pdq-sakseqn and prescription medicines only as told by your health care provider. These include supplements. What foods sh (more content not included)... Normal [facility] Urology Office/Clinic Noteon 12-30-2023 Urology Office/Clinic Note Chief Complaint 6 mo f/u w/ Renal US HPI Staff Former DLS pt 6m MAKENNA & PSA (pt RS'd) DX: Kidney Stone, BPH & Renal Cyst *No Urology Meds Last Tx'd for stones in 2021 Stone Analysis 02/18/23 ([facility]) *Uric Acid KUB 03/12/23 Metabolic Work Up 03/14/23 MAKENNA 12/13/23 Denies any current stone symptoms Denies any current urinary symptoms History of Present Illness Tests Reviewed: Reviewed UA & Imaging tests. I have reviewed the previous health record information and history for this patient from [facility] MAR[facility] Macias I have reviewed and verified the staff HPI to be accurate for this encounter. There have been no associated fever, chills, flank pain, or blood in the urine. Denies any urinary infections since last encounter. Review of Systems PHQ Score Initial Depression Screen Score: 0 SCORE no fever, chills, malaise, myalgia. no rash/lesions. no chest pain, palpitations, or SOB. no abdominal pain, nausea, vomiting. no unilateral calf swelling, redness, pain Physical Exam Vitals & Measurements T: 36.9 ?C(Temporal Artery) HR: 83(Peripheral) RR: 16 BP: 122/88 HT: 70 in HT: 178 cm WT: 109 kg WT: 239.8 lb BMI: 34.4 General: nontoxic, NAD Mouth: moist mucosa Lungs: normal respiratory effort Cardio: regular rate, good distal perfusion Abdomen: nondistended, no suprapubic distention or tenderness, no CVA tenderness Neurologic: Grossly normal Skin: No rashes or suspicious lesions IVÁN: normal prostate w/o nodules noted Assessment/Plan Former DLS pt 1. Kidney stone (N20.0: Calculus of kidney) multiple rounds of lithotripsy previously. most recent was ESWL in December 2021. Did pass a couple stones a few months ago. Noted hematuria and flank pain that resolved when stone passed. Stone Analysis 02/18/23 ([facility]) *Uric Acid MAKENNA 12/13/23 - 2 mm stone at interpolar region of left kidney Metabolic Work Up 03/14/23- Low Urine Volume 1575 , Advised pt to increase water intake to output 2.5 L of urine. U24 Na high 317, Advised pt to monitor salt intake. U24 citric acid low at 203, add foods w/ citric acid, start Effer-K 20meq BID U24 uric acid high normal at 916, normal serum uric acid, urine pH5.0 today, Effer K will help to alkalize urine Serum K 4.9 - Start EfferK BID - Recheck electrolytes 6-8 weeks - f/u 6 mos w/ repeat Litholink 2. BPH without obstruction/lower urinary tract symptoms (N40.0: Benign prostatic hyperplasia without lower urinary tract symptoms) Pt is currently taking no bladder/prostate medication and is highly satisfied with overall symptom control. No indication for treatment at this time. Continue to monitor. UA today w/o signs of blood or infection 3. Renal cyst (N28.1: Cyst of kidney, acquired) MAKENNA 12/13/23 - bilateral cysts, largest measuring 6 cm Prostate cancer screening (Z12.5: Encounter for screening for malignant neoplasm of prostate) PSA 07/03/22 - 1.36 Will draw PSA IO today. Call pt w/ results Repeat PSA in 1 yr, will need order at f/u visit. Follow-up With When Contact Information XIOMARA England APRN, Elsy Skaggs, FAM, URL In 1 year Additional Instructions: w/PSA EDGAR DANIELLE PA-C, URL [address] [place] [address] Additional Instructions: XIOMARA England APRN, Elsy Skaggs, FAM, URL Additional Instructions: Patient Education Dietary Guidelines to Help Prevent Kidney Stones Problem List/Past Medical History Ongoing Anticoagulated Antiphospholipid antibody syndrome Anxiety Asymptomatic microscopic hematuria Bilateral nephrolithiasis BMI 33.0-33.9,adult BPH without obstruction/lower urinary tract symptoms Coronary artery disease Diabetes Former tobacco use GERD (gastroesophageal reflux disease) Gross hematuria History of DVT (deep vein thrombosis) Hypercholesterolemia Hyperlipidemia Hypertension Hypothyroidism Kidney stone Lumbar radiculopathy Migraines Obesity Prostate cancer screening Rectal bleeding Renal cyst Rheumatoid arthritis Ureteral stone Ureteral stone with hydronephrosis Vitamin D deficiency Historical Anxiety disorder Constipation Deep vein thrombosis Elevated cholesterol Enlarged prostate with urinary obstruction Flank pain Gastroesophageal reflux disease History of kidney stones Hydronephrosis with obstructing calculus Hypertension Kidney stones Nephrolithiasis Renal calculus Procedure/Surgical History Ultrasound of kidney (12/13/2023), Fluoroscopy guided ESWL (extracorporeal shockwave lithotripsy) of calculus of left ureter (01/17/2022), Cystoscopy (09/20/2021), Cystoscopy (07/10/2021), ESWL of kidney (01/08/2021), ESWL of kidney (11/06/2020), Cystoscopic removal of ureteric stent (08/09/2019), Cystoscopic insertion of ureteric stent (07/22/2019), Placement of stent in cardiac conduit (07/12/2019), Colonoscopy (11/14/2014), Cystoscopy and retrograde pyelography (07/06/2014), Hemorrhoidectomy (2009), Cardiac catheterization, Cataract extraction, Excision of (more content not included)... Normal [facility] Comment on above: Result Comment: Elec tronically Signed By: XIOMARA England APRN, [place] X\.br\Date and Time Signed: 12/30/23 12:27 EDT\.br\Electronically Co-Signed By: EDGAR DANIELLE PA-C RAD - Ultrasound Reporton RAD - Ultrasound Report [id number]#1 .00TIFF Normal [facility] Outside Colonoscopyon 2022 Outside Colonoscopy [id number]#1 .00TIFF [facility] Reminderson 09-18-2023 Reminders - From: Delilah Fink LPN To: GSN - Clinical; Sent: 09/18/2023 12:45:06 EST Show up: 08/18/2033 07:00:00 EST Subject: colonoscopy recall Due Date/Time: 09/17/2033 07:00:00 EST Reminder/Recall Patient due for screening colonoscopy 09/17/2033. [facility] Reminderson 09-12-2023 Reminders - From: Aisha Zelaya [...] pt is scheduled 09/19/23 @ 0900. Normal [facility] Physician Referralon 023 Physician Referral [id number]#1 .00TIFF [facility] Consent for Procedure/Surger yon 09-01-2023 Consent for Procedure/Surgery [id number]# 1.00TIFF [facility] Ambulatory Visit Summaryon 1 10-30-2022 Ambulatory Visit Summary DORIS LUIS :1965 Visit Date:08/29/2023 Ambulatory Visit Instructions Your Care Team Attending Physician - ANNAMARIE ISRAEL, Jamil Braun Primary Care Physician - Delon Caballero MD Referring Physician - Delon Caballero MD This Is Your Medications List [...] Cardiac catheterization, Cataract extraction, Excision of lipoma, Paint Bank filter, History of lumbar spine surgery, Meniscal repair, Thrombectomy, Tonsillectomy. Discharge Vitals Heart Rate (Peripheral) 72 Respiratory Rate 16 Blood Pressure 126/78 Height 177.8 cm Height 70 in Weight 106.8 kg Weight 234.96 lb BMI 33.78 What to do next Scheduled Follow-Up Appointments Friday 2:30 PM EST With: EDGAR DANIELLE PA-C Where: [facility] Physician Referralon 023 Physician Referral [id number]#1 .00TIFF [facility] Office Visiton 08-14-2023 Follow-up visit [id number] Doris Luis 1965 M Date Provider Department Center 08/14/2023 [facility]-MARICHUY DAGOBERTO CARD Margie English Family History Problem Relation Age of Onset Coronary artery disease Mother Coronary artery disease Father Family Status - Relation Status Age at Mother Father Level of Service:[address] [place] OFFICE/OUTPATIENT ESTABLISHED LOW MDM 20-29 MIN Normal [facility] Physician Referralon 023 Physician Referral [id number]#1. 00TIFF Normal [facility] Physician Referralon 023 Physician Referral [id number]#1 .00TIFF [facility] Lab Reportson 03-21-2023 Lab Reports [id number]#1 .00CD:127 [facility] Lab Reports [id number]#1. 00CD:127 [facility] RAD - MISCon 03-21-2023 RAD - MISC [id number]#1 .00CD:127 [facility] Lab Reportson 03-18-2023 Lab Reports [id number]#1 .00CD:127 [facility] Lab Reports [id number]#1 .00CD:127 [facility] Ambulatory Visit Summaryon 0 03-12-2023 Ambulatory Visit Summary DORIS LUIS :1965 Visit Date:03/12/2023 Ambulatory Visit Instructions Your Care Team Attending Physician - ANNAMARIE ISRAEL, Jamil Braun Primary Care Physician - Delon Caballero MD This Is Your Medications List [...] Appointments Friday 10:00 AM EST With: EDGAR DANIELLE PA-C Where: [facility] Historical Records Officeon 03-10-2023 Historical Records Office [id number]#1 .00CD:127 [facility] Coding Summaryon 02-28-2023 Coding Summary HTMLBase 64 IixaqkveVGl7qRs+PGhlY WQ+KW4XXPFpT62mwAPdgK 7lA6VCBKrJBdbwNOWUAKt IMsJhqtWnVB1psBUmVAIo IC8+JH6dVFVtDkylsHMpk 1S7pSQ4H50nrs5uDNsufC O4SCXcVqVoddmoi2qpuYu 6IDcuNmluOyBt UHGuiV02CCU5bH68Kn80l YWraYIsq6oknPk0BcMbLO XuZGP4tGyqZThqq0PnKIZ yQ44anASgz6C9 QJPwiPnazKOvYkBafYV8a X5kGFavrqmuj3lslwipNh m3rd45tGMnh5L0qLL5B9T yeeP3IEUnyKGz OhsnsYKLeG3mflkhn3idh hghRoXjJQVeIJh8ANl4TW KxtDtoFoBaWX36TPX7SLJ ahwBlU5JpVRGx fVeqZgR8x3Y6If8LV2OUZ ckoK6KLKQEJJStsgAO+PC 18bc70N4YyXdzePdk8UMK nPPQ8eND0kF6n SUBjVEhkp4C0zKI1Z4Gxx kDqob9my0qrKMYtAAjhO9 7jvEQsx5M7KKFqkXY0PFP cfOmkNvQuoK60 Oyc+KJZleKdku3VgDxwou 8ged4zbxUc7FsmdVLBiye VwaCieFJK5a1CqOq3aHAB tjGL6fJR4nJ2c PjXnBnF9EOaxY318XrBrs BRmGtsoW44cK4IfhTA+PH AgQip5GQTjpCmnEA1gL9N hZGRpbmctbGVm hMkaXH3zBTQksawaWUJum G0tLOHmX8n8YqUeIjQ1IK avB5WtFQMliyhaVm40zF2 wBiNeOpL0PWki R7ZbnvH7GPZfaLJnTJuqB MF2Y30im6L4QZVdHVUvFE G9oCG9dF6qaJhcfcfyoQB mdDsgdmVydGlj TQobYDsvO116AYRyfTboT kNvZGluZyBEYXRlOiAgMD YvMDIvMjAyMzwvdGQ+PHR vAVD0tHikTXMg vZAeVLvzEk2vnAfyzCeqR N6yJUDpfezaEYFhyT9sMZ QdkUKkjJkwZI1zMANiexn ij311HhOvOOQ0 WCBbqATeW7FqkR8sXhEeI TVuHOMxY6MtdPCkPFqkI2 04XLnkLyG0JFFsrfHtX1Y sLWFsaWduOiB0 o8T6Co8Wb0PbecovQ1Ifn VNyCsRxSxrbVYi5S1MlFd wvdHI+SZ94AUGjZL61LQk 1SLN5iPmiZTsg OZOpQ9ZcjM4tEnMgLYVeN GRkOyc+PHRhYmxlIHdpZH RoPScxMDAlJyBzdHlsZT0 kQg0dPJAvZDEb sGvyrHKeFrUax6vyHPTkU EaiVZ9tsUkgU3BknFP0WT Xog2v5So50G55nV4AjsZZ +IOJlaAQ6xTA5 oC2dFbOhPkW1RJzuT522E gNvoCDtUsyvi2mke0qcmQ g1QyT5BJVqkrPdxSliZBD 5s3JqQd07K69v IHdpZHRoPSIxNSUiIHZhb Tniqb0ddU5rEd6+PGNvbC H2fZP6lC8oIgOqYuJ1OTd jG925PgSctULr Mskfe0akt6oevHk0IvXfM NYunqIakCikWDL2m8PqSh 87P3SnvWqrp9GyZmk0zp5 0cRInq8H5wMW0 W0MxCYZgdcdxxTEtoPphX U6hLQZsdxyqQCMaaU6oFX EpX9s8QyMrFtC5TUnvS5C alnK9THPdpMMt BTUquLPXnZ4mcdmfs1nrd cvxVlSzRYIeSHx2AKr7SX FgaAouLhWyNSN4PrX0MWX 1rAJnmP1mqRms cabwyW4eXok+VNE7sPJng XUXDR6nTaltaUV+PHRkIH F5jGukDZcnMTDdaH0sXZT oO4b8FgYrCkF8 MMblE0WebkP6LXMwqOJcM WPpdTGLsX2zrowsk6niwx iyAfGgNZXnAKt8LIj0VZE saWduOiBsZWZ0 OuP0DAH1nFSbjW5lbJncv jlgjJ5eRfa+QmlydGggRG V8AEk3S4BbQbx6EVWzgUe hHG8zcTNrNBqm Hw5ycCfqpNswVZ2hYYOdl eftv593EoEyg5ttDVWzkB UiPRnaXOT9O74yk1E8QVZ dNRVxRVV7nUS5 lM0olXlbvjnzyRFwaKhbx gHnpPcfUVldRAwdA515ZA GxiXloQbUqVDb8K4HiFpg 4MOCpoWhePR0z fDBqQEedYk6cdVqqbJmkQ K3nPAUsrfznt845WkIix8 tpNLEplOOnYUmaALM9M00 ph0B2DFZvFAAo XCB3eIB5hY5egXrrquwrz GVmdDsgdmVydGljYWwtYW bgB106MLHojXatXcIzlAz 0Y7NmJcq8PSDe gPjbEL9krULlBDffZp6ek VlsiFvqAD9yXKQghjawo2 98KgAmu6lsVKTaqDJaCXu kEWE2R71cm3I4 ZAKhAKIoBRM1mKU4wH9ip GlnbjogbGVmdDsgdmVydG kwWEecDKouT459IBBqiXt nPlBhdGllbnQg FQgmYTf4D5XrTpmzaUZ+P O77ZAKdGK84uLHfkASww4 gcsMa6UzTbSFZwITF9zTt eHGpms6KvOHOi D52fvVDmd8K2XLFdyArfg KOpOwVdjAR5kV8vIKxtsq hlm7jmzxfiVhwpd0eucw1 3eP77Y00qUXqm ZHRoPSIzMCUiIHZhbGlnb u3mrM4pMz4+EEXwoAT1fT H3sQ0dDKTdIfP8FXcxP06 9InRvcCIvPjxj w1osh1ynxRz8NzV7LWGou nPtdIknUAP1q6HlCu23R3 9sIHdpZHRoPSIyMCUiIHZ srTwawl0zjA1u Ii8+QLZyhNL1vHL8uG5aO yZoPdL8NHfzS443XoIxjL ZcLxchS39iI1TjxLV+PHR tSao7CXCleCnh KQ5lmODaDZhjEg1lOIR0R yNxIcFsTVesO0JzDDCkuc krzuysgIE8IFNcTHTsqW7 7Vz4uvPxuRSAv vENBlY8cztxbo2zdidzeF tLcCLEsATk7HYe9PTRabW hsEeHvJEH4YtI8XIL9eYW qaB3vmFmutyoy sA0yK9RvNZYcxajpCl71q C1bUlMrWeY5PSnmBei+SE TBR9AMVZHIKEPIXEDHNDA XB6XPGLxmqTO+ BYWuAMB5cYxpOTtyQSQhy F6dELPcU5n9QmDpCcH3LO jtX8WiNROwethvBd91hD4 yRvZeBmG7NDnj G5TfylP0WOEhvSKnNSphL HL1A85kc4K0JLLbTFNtKP A9mVL4dL1tqGcyjuqmuPJ mdDsgdmVydGlj NVvhAWetS903GPWyqQxzP yE1WtJ8PhQ2VxJ8N3UiPi z0IIGvwOpnJE0rqZQlCEa bLx4ipVrgrNbm KO6kOULiojqsRZOutV3dJ EUhwOIbpIgbRE5vRMRatg qce807YpLoGZR0LCPcbAB cT7MwqY1kYeSb BNWaACRtZ5PesRGeRFfnD 740ZWdhCcV1JLKqavHoF3 KfKKTjwOahVyZ4z9I9Kx4 1OSBZZWFyczwv dGQ+GTCaAZD6lMaoPSfgB CLdoO4uUNLuT2i3MvBsRb O0GIbpF9CqGHOfyigtQu5 8uC3nEbKkPlZ4 VAhyO2GxtcF6NENixVNhV UzyGHD2V44cz5I9UISyMA CgSOR8qQD7aH3muQzgele gbGVmdDsgdmVy aRxaXUmgXXurQ390VTEew ZibOd9PTXZ6Z3UwHyd9FC GejKjeSJ9ujTOrEPrmPd1 kxLfzoNttXQ7v BDBrrqddGUOofP3fWUJox GYemNhaSP0gQNBoqggfh4 02ZsDrFCS8PPXqeOXoB2T tmN0iLyGaZXVm HXXkS3BpqZFsURltE230J DscBqV9DNHolrGiM5MqQS DblLmrRxP9n7L3Bv7EDOi vdGQ+MV95zq53 B0ZtOcllGco4KQPfDMD6k FO2jQ0mBRSzFGepq3B3lN Z1Q9TbrsWxcg8nr2gkANW iDNfgR77lhJZx i7W8HOYooGU1ZWOklNntC pCpiS02Ldm+PGNvbGdyb3 JnFhqst4yxq9yuvIl8LgA wJSIgdmFsaWdu XTH5o5EoKw16Y89zRQccD HRoPSIzMCUiIHZhbGlnbj 7zvA0iHl1+QJDwzGU8yQL 4lM6yWiCcAiY3 JZkmQ007GlNadYQgSaicc 3pkw8qnlJn3WzYmGJPjyx VxmDqbTAM3j2PoMe77P4Z pnLirl3WjQtf5 iy98dXRut0N0sVR8K2XwC CKirbaudSHxcBgpTR0oOA TqfbfjXJVvtA9wVNUzP6x 0BbSuZpR9BJoi Q3SrbqW8PVNzbTIzHPIaw IFOiB4daqxqg4ztgymqOs AdDCEiCLg9EKs1FODllRy kGnFlXBF9VnQ5 IYX6jFHamF5ubJjlvggso G9wOyc+AXu8j6fkvAIlTZ 8pfPM6VP82FP85gAFga3M 0wJS4Y5KqFSVn qaqabtyfhAT4LMNiXYKxl K88Ms5txLtjQg1dGUEdLW K2AXTwpHIpY0ChwH0mShB iMHNnQUIcI4Ye ePXxUJzwW201UCixRcR4R QEcchFbY1IpYIGdnBydIk S2f2L5Qz0ZQN14PB25HK8 0yDCxo1O2xCE0 G8WbZUGjxtzlqvbxwHO5U AJwXWPpoW12Ry0lpUdrJl 9dHBHhBXT4JAFkcIIsQ5R fsQ7lJiLiUJAk YKAwZ9WqdYLmGQreA988Z EbyCtO4RINrytNgB1WhTC FofDhxFoK4u0X9Tr3GTg6 9MA49TY92jFRd l0G9hMQ4T9CiRGJphbait ycucZL3KBGyDHVnhG15Rz 3bfEjcIe3dXLHhPMA6PAA xwFNtF1EtwJ4x FvImRIGwRVAuZ2LtiZBlQ IigO636EEciKgO9JAUomi UeZ5TeEILyfKulYlV4t2Z 8Sh8SYIrckox5 I8XfBsnafEO+ZF36PCMpO X97uEDnwSUgo6zqoAs4Hf QpJBFmHAX1oXzvMFska3Z lRRVtD23qsOJh c2U (more content not included)... Normal [facility] Calculus Analysison 02-27-20 23 Color (Stone) [place] Invalid Interpretation Code [facility] Comment on above: Performed By: #### 1 [id number] ####[facility] [address] [place] [address] Composition Comment Invalid Interpretation Code [facility] Comment on above: Result Comment: Perc entage (Represents the % composition) Performed By: #### 1 [id number] ####[facility] [address] [place] [address] Disclaimer: Comment Invalid Interpretation Code [facility] Comment on above: Result Comment: This test was developed and its performance characteristics determined by [facility]. It has not been cleared or approved by the Food and Drug Administration. Performed at: [facility] Stone Analysis [address] [place] [address] Dr Deras, [place] [id number] PhD Sahra Helton Performed By: #### 1 [id number] ####[facility] [address] [place] [address] Laboratory comment Lazaro (Report) Comment Invalid Interpretation Code [facility] Comment on above: Result Comment: Trav nguyen questions regarding Calculi Analysis contact [facility] at: [phone]. Performed By: #### 1 [id number] ####[facility] [address] [place] [address] Please Note: Comment Invalid Interpretation Code [facility] Comment on above: Result Comment: Calc cheikh report will follow via computer, mail or mailer apprentice delivery. Performed By: #### 1 [id number] ####[facility] [address] [place] [address] Size (Stone) [Entitic vol] 3x5 Invalid Interpretation Code [facility] Comment on above: Result Comment: Sing le piece received. Performed By: #### 1 [id number] ####[facility] [address] [place] [address] Specimen source subject Nom Comment Invalid Interpretation Code [facility] Comment on above: Result Comment: Not provided Performed By: #### 1 [id number] ####[facility] [address] [place] [address] Stone Photo Comment Invalid Interpretation Code [facility] Comment on above: Result Comment: Ni can will follow under a separate cover Performed By: #### 1 [id number] ####[facility] [address] [place] [address] Urate (Stone) [Mass fraction] 100 % Invalid Interpretation Code [facility] Comment on above: Performed By: #### 1 [id number] ####[facility] [address] [place] [address] Weight (Stone) 35 mg Invalid Interpretation Code [facility] Comment on above: Performed By: #### 1 [id number] ####[facility] [address] [place] [address] ED Clinical Summaryon 2022 ED Clinical Summary [facility] [address] [place] [address] Clinical Summary PERSON INFORMATION Name: DORIS LUIS Age: 57 Years Sex: MALE : 1965 MRN: Acct#: Visit Reason: Skin problem; FISH HOOK LT THIGH Arrival: 02/26/2023 14:18:24 Discharge: 02/26/2023 15:11:00 LOS: 000 00:53 Check In: 02/26/2023 14:18:24 Checkout: 02/26/2023 15:11:00 Address: [address] [place] [address] PCP: DELON CABALLERO PROVIDER INFORMATION Provider Role Assigned Unassigned ALFIE SLAUGHTER ED PA 02/26/2023 14:20:09 Ivan Pringle [employer] Nurse 02/26/2023 14:20:24 Asya Luther [employer] Nurse 02/26/2023 14:30:49 VITALS INFORMATION Vital Sign [...] distress: No -Vitals: reviewed. SKIN: -Gross abnormalities: [place] appreciated in the left medial lower thigh just above the knee NECK: -Supple (rzke-mo-yrald): non-tender. CARD: -Rate and rhythm: Regular RESP: [...] Fish hook injury of left lower leg (XXG10-CO S89.92XA). Orders Orders Patient Care: Wound Care [...] Wound Care, Adult Follow-Up: With: Address: When: DELON CABALLERO [address] [facility], [address] [place], [place] [id number] Business (1) Within 3 to 5 days DIAGNOSIS: Fish hook injury of left lower leg Patient Understands: Yes - Patient/family/caregi josee verbalizes understanding of instructions given Comment: [facility] ED Note - Physicianon 2022 ED [...] distress: No -Vitals: reviewed. SKIN: -Gross abnormalities: [place] appreciated in the left medial lower thigh just above the knee NECK: -Supple (djvh-oj-yfhtc): non-tender. CARD: -Rate and rhythm: Regular RESP: [...] Fish hook injury of left lower leg (MDW95-QZ S89.92XA). Orders Orders Patient Care: Wound Care [...] [Verified on: 02/26/2023 14:57 EDT] ALFIE SLAUGHTER [facility] ED Patient Summaryon 023 ED Patient Summary [facility] [address] [place] [address] PATIENT DISCHARGE INSTRUCTIONS Patient Information Name: DORIS LUIS Age: 57 Years Date of : 1965 Reason For Visit: Skin problem; FISH HOOK LT THIGH Arrival Time: 02/26/2023 14:18:24 Primary Care Physician: DELON CABALLERO Attending Physician: ALFIE SLAUGHTER Comment: Patient Education With: Address: When: DELON CABALLERO [address] [place] [address], [facility] [place] [address] Business (1) Within 3 to [...] at home: Medicines ? Take or apply nreq-ldy-udxgmoe and prescription medicines only as told by [...] and water are not available, use hand inclusion special education teacher. ? Change your dressing as told by [...] washing o (more content not included)... Normal [facility] Recordon 02-26- 023 Urgent Care Record [facility] [address] [place] [address] PATIENT DISCHARGE INSTRUCTIONS Patient Information Name: DORIS LUIS Age: 57 Years Date of : 1965 Reason For Visit: Skin problem; FISH HOOK LT THIGH Arrival Time: 02/26/2023 14:18:24 Primary Care Physician: DELON CABALLERO Attending Physician: ALFIE SLAUGHTER Comment: Visit Diagnosis: Diagnoses This Visit Fish hook injury of left lower leg (S89.92XA) Skin problem ([id number]) If you received any narcotics, sedation, or [...] sign any legal documents With: Address: When: DELON CABALLERO [address] [place] [address] [place] [address] Business () Within 3 to 5 days Medication Information: The exam and treatment you received today in the [facility] were for an urgent problem and are not intended as complete care. It is important for you to follow up with a doctor, nurse practitioner, or physician?s dietary assistant for ongoing care. If your symptoms [...] so we can reach you if necessary. [facility] has provided you with a complete list of medications post discharge. Please inform your jacquard lace weaver/provider of your visit and for further instruction [...] washing out the (more content not included)... [facility] Historical Records Officeon 02-20-2023 Historical Records Office [id number]#1 .00CD:127 [facility] Physician Referralon 023 Physician Referral [id number]#1 .00CD:127 [facility] Ambulatory Visit Summaryon 0 02-18-2023 Ambulatory Visit Summary DORIS LUIS :1965 Visit Date:02/18/2023 Ambulatory Visit Instructions Your Diagnosis Kidney stone Prostate cancer screening BPH without obstruction/lower urinary tract symptoms Renal cyst Tests Performed Urnls Dip Stick Auto w/o Microscopy POC 41086 US Renal -- Results Pending -- Please visit your patient portal for your results or contact your primary care physician. Your Care Team Attending Physician - EDGAR DANIELLE PA-C Primary Care Physician - Delon Caballero MD This Is Your Medications List [...] Cystoscopy and retrograde pyelography (07/06/2014), Back care, Paint Bank filter, Hemorrhoidectomy, History of knee surgery, Tonsillectomy. Discharge Vitals Heart Rate (Peripheral) 68 Respiratory Rate 16 Blood Pressure 130/72 Height 178 cm Height 70 in Weight 106 kg Weight 233.2 lb BMI 33.46 What to do next Scheduled Follow-Up Appointments Friday 10:00 AM EST With: EDGAR DANIELLE PA-C Where: [facility] Patient Educationon 02-19-20 23 Patient Education Urology Kidney Stones Kidney stones [...] these instructions at home: Medicines ? Take ssfb-yhm-ovhaxdh and prescription medicines only as told by [...] provider. Document Revised: 05/20/2022 Document Reviewed: 05/20/2022 M.dot Patient Education ? 2022 [employer]. [facility] Urology Office/Clinic Noteon 02-18-2023 Urology Office/Clinic Note [...] E&M of Est. Patient Moderate 30-39 Min 78988 PSA Total Urnls Dip Stick Auto w/o Microscopy POC 61275 US Renal 2. Prostate cancer screening (Z12.5: Encounter for screening for malignant neoplasm of prostate) PSA 07/03/22 - 1.36 will need repeat this fall. order placed. No additional PSA in [facility] system (gets labs annually for PCP but doesn't look like this was included). Ordered: E&M of Est. Patient Moderate 30-39 Min 33767 PSA Total 3. BPH without obstruction/lower urinary tract symptoms (N40.0: Benign prostatic hyperplasia without lower urinary tract symptoms) Pt is currently taking no bladder/prostate medication and is highly satisfied with overall symptom control. No indication for treatment at this time. Continue to monitor. Ordered: E&M of Est. Patient Moderate 30-39 Min 49405 PSA Total 4. Renal cyst (N28.1: Cyst of kidney, acquired) Pt's Renal US shows bilat simple cysts, largest 6cm on right. Ordered: E&M of Est. Patient Moderate 30-39 Min 75448 PSA Total f/u 6 mos w MAKENNA and PSA prior Follow-up With When Contact Information ELIJAH ALLEN, EDGAR [place], URL Within 6 months [address] [place] [address] [facility] (1) Additional Instructions: Patient Education Kidney Stones, Hdwn-yd-Gpdn Problem List/Past Medical History Ongoing Anticoagulated Anxiety [...] Cystoscopy and retrograde pyelography (07/06/2014), Back care, Paint Bank filter, Hemorrhoidectomy, History of knee surgery, Tonsillectomy. [...] 1 cap(s), (more content not included)... Normal [facility] Comment on above: Result Comment: Elec tronically Signed By: ELIJAH ALLEN, EDGAR Paniagua\.br\Date and Time Signed: 02/18/23 15:31 EDT CBC AUTO DIFFon 01-31-2023 BASO # 0.1 103/ul Normal 0.0-0.1 [facility] Comment on above: Performed By: #### P T #### [facility] [address] [place] [address] Dr. Curly Connell Basophils/100 WBC (Bld) 0.9 % Normal 0.2-2.0 [facility] Comment on above: Performed By: #### P T #### [facility] [address] [address] [address] Curly Connell EO # 0.1 103/ul Normal 0.0-0.7 [facility] Comment on above: Performed By: #### P T #### [facility] [address] [address] [address] Curly Connell Eosinophils/100 WBC (Bld) 1.2 % Normal 0.9-7.0 [facility] Comment on above: Performed By: #### P T #### [facility] [address] [address] [address] Curly Connell Erythrocyte distribution width (RBC) [Ratio] 19.1 % Critically high 11.0-15.0 [facility] Comment on above: Performed By: #### P T #### [facility] [address] [address] [address] Curly Connell Hematocrit (Bld) [Volume fraction] 42.3 % Normal 42.0-54.0 [facility] Comment on above: Performed By: #### P T #### [facility] [address] [place] [address] Dr. Curly Connell Hemoglobin (Bld) [Mass/Vol] 12.1 g/dL Critically low 14.0-18.0 [facility] Comment on above: Performed By: #### P T #### [facility] [address] [place] [address] Dr. Curly Connell IG # 0.02 10e3/ul Normal 0.00-0.03 [facility] Comment on above: Performed By: #### P T #### [facility] [address] [place] [address] Dr. Curly Connell IG % 0.2 % Normal 0.0-0.5 [facility] Comment on above: Performed By: #### P T #### [facility] [address] [place] [address] Dr. Curly Connell LYMPH # 2.2 103/ul Normal 1.2-3.8 [facility] Comment on above: Performed By: #### P T #### [facility] [address] [place] [address] Dr. Curly Connell Lymphocytes/100 WBC (Bld) 24.3 % Normal 20.5-60.0 [facility] Comment on above: Performed By: #### P T #### [facility] [address] [place] [address] Dr. Curly Connell MANUAL DIFF REQ NO Normal [facility] Comment on above: Performed By: #### P T #### [facility] [address] [place] [address] Dr. Curly Connell MCH (RBC) [Entitic mass] 21.1 pg Critically low 25.9-34.0 [facility] Comment on above: Performed By: #### P T #### [facility] [address] [place] [address] Dr. Curly Connell MCHC (RBC) [Mass/Vol] 28.6 g/dL Critically low 29.9-35.2 [facility] Comment on above: Performed By: #### P T #### [facility] [address] [place] [address] Dr. Curly Connell MCV (RBC) [Entitic vol] 73.8 fL Critically low 80.0-94.0 [facility] Comment on above: Performed By: #### P T #### [facility] [address] [place] [address] Dr. Curly Connell MONO # 0.8 103/ul Normal 0.3-0.8 [facility] Comment on above: Performed By: #### P T #### [facility] [address] [place] [address] Dr. Curly Connell Monocytes/100 WBC (Bld) 9.2 % Normal 1.7-12.0 [facility] Comment on above: Performed By: #### P T #### [facility] [address] [place] [address] Dr. Curly Connell NEUT # 5.9 103/ul Normal 1.4-6.5 [facility] Comment on above: Performed By: #### P T #### [facility] [address] [place] [address] Dr. Curly Connell Neutrophils/100 WBC (Bld) 64.2 % Normal 43.0-75.0 [facility] Comment on above: Performed By: #### P T #### [facility] [address] [place] [address] Dr. Curly Connell Platelet mean volume (Bld) [Entitic vol] 10.0 fL Normal 9.5-13.5 [facility] Comment on above: Performed By: #### P T #### [facility] [address] [place] [address] Dr. Curly Connell PLT 340 103/ul Normal 150-450 [facility] Comment on above: Performed By: #### P T #### [facility] [address] [place] [address] Dr. Curly Connell RBC 5.73 106/ul Normal 4.70-6.10 [facility] Comment on above: Performed By: #### P T #### [facility] [address] [place] [address] Dr. Curly Connell WBC 9.1 103/ul Normal 4.0-11.0 [facility] Comment on above: Performed By: #### P T #### [facility] [address] [address] [address] Curly Connell GLYCOHEMOGLOBIN A1Con 2022 ADA RECOMMENDATION SEE BELOW Normal [facility] Comment on above: Result Comment: ADA RECOMMENDED LIMIT 4.0 - 6.0 ADA THERAPEUTIC TARGET < 7.0 ACTION SUGGESTED > 7.0 Performed By: #### P T #### [facility] [address] [address] [address] Curly Connell Glucose [Mass/Vol] 151 mg/dL Normal [facility] Comment on above: Performed By: #### P T #### [facility] [address] [address] [address] Curly Connell HbA1c (Bld) [Mass fraction] 6.9 % Critically high 4.5-6.2 [facility] Comment on above: Performed By: #### P T #### [facility] [address] [address] [address] Curly Connell LIPID PROFILEon 01-31-2023 CHOL-HDL RATIO NORM SEE BELOW Normal [facility] Comment on above: Result Comment: 3.3 - 4.4 LOW RISK 4.4 - 7.1 AVERAGE RISK 7.1 - 11.0 MODERATE RISK >11.0 HIGH RISK Performed By: #### P T #### [facility] [address] [place] [address] Dr. Curly Connell Cholesterol [Mass/Vol] 149 mg/dL Normal <=200 [facility] Comment on above: Performed By: #### P T #### [facility] [address] [address] [address] Curly Connell Cholesterol in HDL [Mass/Vol] 41 mg/dL Normal 40-60 [facility] Comment on above: Performed By: #### P T #### [facility] [address] [address] [address] Curly Connell Cholesterol in LDL [Mass/Vol] 77.8 mg/dL Normal [facility] Comment on above: Performed By: #### P T #### [facility] [address] [address] [address] Curly Connell Cholesterol.total/Chol esterol in HDL [Mass ratio] 3.6 {ratio} Normal [facility] Comment on above: Performed By: #### P T #### [facility] [address] [address] [address] Curly Connell HDL NORMAL > or = 60 mg/dl - LO W CARDIOVASCULAR RISK <40 mg/dl - HIGH CARDIOVASCULAR RISK Normal [facility] Comment on above: Performed By: #### P T #### [facility] [address] [address] [address] Curly Connell LDL CALC NORMAL SEE BELOW Normal [place] Comment on above: Result Comment: <100 mg/dl OPTIMAL 100 - 129 mg/dl NEAR OR ABOVE OPTIMAL 130 - 159 mg/dl BORDERLINE HIGH 160 - 189 mg/dl HIGH >190 mg/dl VERY HIGH Performed By: #### P T #### [facility] [address] [address] [address] Curly Connell Triglyceride [Mass/Vol] 151 mg/dL Critically high <=150 [facility] Comment on above: Performed By: #### P T #### [facility] [address] [address] [address] Curly Connell VLDL CALC 30.2 mg/dL Normal [facility] Comment on above: Performed By: #### P T #### [facility] [address] [address] [address] Curly Connell Office Visiton 01-31-2023 Follow-up visit [id number] Doris Luis 1965 M Date Provider Department Center 01/31/2023 SHANIA LYN [facility] Family History Problem Relation Age of Onset Coronary artery disease Mother Coronary artery disease Father Family Status - Relation Status Age at Mother Father Level of Service:[address] [place] OFFICE/OUTPATIENT ESTABLISHED MOD MDM 30-39 MIN Reason for Visit and Comments: Coronary Artery Disease [187] Hypertension [481969] Hyperlipidemia [182] Normal [facility] PROF 14(COMP METB)on 023 Albumin [Mass/Vol] 3.6 g/dL Normal 3.4-5.0 [facility] Comment on above: Performed By: #### P T #### [facility] [address] [place] [address] Dr. Curly Connell Albumin/Globulin [Mass ratio] 0.8 {ratio} Normal [facility] Comment on above: Performed By: #### P T #### [facility] [address] [place] [address] Dr. Curly Connell ALP [Catalytic activity/Vol] 66 U/L Normal 46-116 [facility] Comment on above: Performed By: #### P T #### [facility] [address] [place] [address] Dr. Curly Connell ALT [Catalytic activity/Vol] 21 U/L Normal 16-63 [facility] Comment on above: Performed By: #### P T #### [facility] [address] [place] [address] Dr. Curly Connell Anion gap [Moles/Vol] 9.6 mmol/L Normal [facility] Comment on above: Performed By: #### P T #### [facility] [address] [place] [address] Dr. Curly Connell AST [Catalytic activity/Vol] 15 U/L Normal 15-37 [facility] Comment on above: Performed By: #### P T #### [facility] [address] [place] [address] Dr. Curly Connell Bilirubin [Mass/Vol] 0.4 mg/dL Normal 0.2-1.0 [facility] Comment on above: Performed By: #### P T #### [facility] [address] [place] [address] Dr. Curly Connell Calcium [Mass/Vol] 9.2 mg/dL Normal 8.5-10.1 [facility] Comment on above: Performed By: #### P T #### [facility] [address] [place] [address] Dr. Curly Connell Chloride [Moles/Vol] 106 mmol/L Normal 98-107 [facility] Comment on above: Performed By: #### P T #### [facility] [address] [place] [address] Dr. Curly Connell CO2 [Moles/Vol] 28.2 mmol/L Normal 21.0-32.0 [facility] Comment on above: Performed By: #### P T #### [facility] [address] [place] [address] Dr. Curly Connell Creatinine [Mass/Vol] 1.23 mg/dL Normal 0.70-1.30 [facility] Comment on above: Performed By: #### P T #### [facility] [address] [place] [address] Dr. Curly Connell EGFR-AF OMANI >60 Normal >=60 [facility] Comment on above: Performed By: #### P T #### [facility] [address] [place] [address] Dr. Curly Connell EGFR-NON AF OMANI 60 mL/min/1.73m2 Normal >=60 [facility] Comment on above: Performed By: #### P T #### [facility] [address] [place] [address] Dr. Curly Connell Globulin (S) [Mass/Vol] 4.3 g/dL Normal [facility] Comment on above: Performed By: #### P T #### [facility] [address] [place] [address] Dr. Curly Connell Glucose [Mass/Vol] 123 mg/dL Critically high 74-106 [facility] Comment on above: Performed By: #### P T #### [facility] [address] [place] [address] Dr. Curly Connell Potassium [Moles/Vol] 4.8 mmol/L Normal 3.5-5.1 [facility] Comment on above: Performed By: #### P T #### [facility] [address] [place] [address] Dr. Curly Connell Protein [Mass/Vol] 7.9 g/dL Normal 6.4-8.2 [facility] Comment on above: Performed By: #### P T #### [facility] [address] [address] [address] Curly Connell Sodium [Moles/Vol] 139 mmol/L Normal 136-145 [facility] Comment on above: Performed By: #### P T #### [facility] [address] [address] [address] Curly Connell Urea nitrogen [Mass/Vol] 25.0 mg/dL Critically high 7.0-18.0 [facility] Comment on above: Performed By: #### P T #### [facility] [address] [place] [address] Dr. Curly Connlel Urea nitrogen/Creatinine [Mass ratio] 20.3 mg/mg Normal [facility] Comment on above: Performed By: #### P T #### [facility] [address] [place] [address] Dr. Curly Connell PROTIMEon 01-31-2023 INR Coag (PPP) [Relative time] 2.17 {INR} Normal [facility] Comment on above: Performed By: #### P T #### [facility] [address] [place] [address] Dr. Curly Connell INR GUIDELINES SEE BELOW Normal [facility] Comment on above: Result Comment: DAFNE RED INR: 2.0 - 3.0 CONDITIONS NOT LISTED BELOW 2.5 - 3.5 FOR PROSTHETIC HEART VALVE REPLACEMENT 2.5 - 3.5 RECURRENT THROMBOSIS Performed By: #### P T #### [facility] [address] [place] [address] Dr. Curly Connell PT Coag (PPP) [Time] 22.0 s Critically high 9.0-11.6 [facility] Comment on above: Performed By: #### P T #### [facility] [address] [place] [address] Dr. Curly Connell US KIDNEYSon 01-21-2023 US KIDNEYS EXAMINATION: US [...] by: EFREM HUMPHREYS Date: 2023-01-21 10:07 Normal [facility] XR KUB 1 VIEWon 01-21-2023 XR [...] EFREM HUMPHREYS Date: 2023-01-21 10:37 Normal [facility] PROTIMEon 12-30-2022 INR Coag (PPP) [Relative time] 2.16 {INR} Normal [facility] Comment on above: Performed By: #### P T #### [facility] [address] [address] [address] Curly Connell INR GUIDELINES SEE BELOW Normal [facility] Comment on above: Result Comment: DAFNE RED INR: 2.0 - 3.0 CONDITIONS NOT LISTED BELOW 2.5 - 3.5 FOR PROSTHETIC HEART VALVE REPLACEMENT 2.5 - 3.5 RECURRENT THROMBOSIS Performed By: #### P T #### [facility] [address] [address] [address] Curly Connell PT Coag (PPP) [Time] 21.9 s Critically high 9.0-11.6 [facility] Comment on above: Performed By: #### P T #### [facility] [address] [place] [address] Dr. Curly Otero 10-14-2022 INR Coag (PPP) [Relative time] 2.36 {INR} Normal [facility] Comment on above: Performed By: #### P T #### [facility] [address] [place] [address] Dr. Curly Connell INR GUIDELINES SEE BELOW Normal [facility] Comment on above: Result Comment: DAFNE RED INR: 2.0 - 3.0 CONDITIONS NOT LISTED BELOW 2.5 - 3.5 FOR PROSTHETIC HEART VALVE REPLACEMENT 2.5 - 3.5 RECURRENT THROMBOSIS Performed By: #### P T #### [facility] [address] [place] [address] Dr. Curly Connell PT Coag (PPP) [Time] 23.8 s Critically high 9.0-11.6 [facility] Comment on above: Performed By: #### P T #### [facility] [address] [place] [address] Dr. Curly Otero 09-16-2022 INR Coag (PPP) [Relative time] 1.93 {INR} Normal [facility] Comment on above: Performed By: #### P T #### [facility] [address] [place] [address] Dr. Curly Connell INR GUIDELINES SEE BELOW Normal [facility] Comment on above: Result Comment: DAFNE RED INR: 2.0 - 3.0 CONDITIONS NOT LISTED BELOW 2.5 - 3.5 FOR PROSTHETIC HEART VALVE REPLACEMENT 2.5 - 3.5 RECURRENT THROMBOSIS Performed By: #### P T #### [facility] [address] [place] [address] Dr. Curly Connell PT Coag (PPP) [Time] 20.0 s Critically high 9.0-11.6 [facility] Comment on above: Performed By: #### P T #### [facility] [address] [place] [address] Dr. Curly Otero 08-07-2022 INR Coag (PPP) [Relative time] 2.68 {INR} Normal [facility] Comment on above: Performed By: #### P T #### [facility] [address] [address] [address] Curly Connell INR GUIDELINES SEE BELOW Normal [facility] Comment on above: Result Comment: DAFNE RED INR: 2.0 - 3.0 CONDITIONS NOT LISTED BELOW 2.5 - 3.5 FOR PROSTHETIC HEART VALVE REPLACEMENT 2.5 - 3.5 RECURRENT THROMBOSIS Performed By: #### P T #### [facility] [address] [address] [address] Curly Connell PT Coag (PPP) [Time] 27.1 s Critically high 9.0-11.6 [facility] Comment on above: Performed By: #### P T #### [facility] [address] [place] [address] ABD/PELVIS WO CONon [...] by: MASON NESBITT Date: 2022-07-17 19:16 Normal [facility] US KIDNEYSon 07-01-2022 US KIDNEYS Ultrasound [...] [place] Date: 2022-07-01 09:02 Normal [facility] XR KUB 1 VIEWon 07-01-2022 XR KUB [...] EFREM HUMPHREYS Date: 2022-07-01 16:28 Normal [facility] PROTIMEon 06-25-2022 INR Coag (PPP) [Relative time] 2.60 {INR} Normal [facility] Comment on above: Performed By: #### P T #### [facility] [address] [place] [address] Dr. Curly Connell INR GUIDELINES SEE BELOW Normal [facility] Comment on above: Result Comment: DAFNE RED INR: 2.0 - 3.0 CONDITIONS NOT LISTED BELOW 2.5 - 3.5 FOR PROSTHETIC HEART VALVE REPLACEMENT 2.5 - 3.5 RECURRENT THROMBOSIS Performed By: #### P T #### [facility] [address] [place] [address] Dr. Curly Connell PT Coag (PPP) [Time] 26.4 s Critically high 9.0-11.6 [facility] Comment on above: Performed By: #### P T #### [facility] [address] [place] [address] Dr. Curly Connell PROTIMEon 06-05-2022 INR Coag (PPP) [Relative time] 3.62 {INR} Normal [facility] Comment on above: Performed By: #### P T #### [facility] [address] [place] [address] Dr. Curly Connell INR GUIDELINES SEE BELOW Normal [facility] Comment on above: Result Comment: DAFNE RED INR: 2.0 - 3.0 CONDITIONS NOT LISTED BELOW 2.5 - 3.5 FOR PROSTHETIC HEART VALVE REPLACEMENT 2.5 - 3.5 RECURRENT THROMBOSIS Performed By: #### P T #### [facility] [address] [place] [address] Dr. Curly Connell PT Coag (PPP) [Time] 35.9 s Critically high 9.0-11.6 [facility] Comment on above: Performed By: #### P T #### [facility] [address] [place] [address] Dr. Curly Connell PROTIMEon 05-24-2022 INR Coag (PPP) [Relative time] 2.56 {INR} Normal [facility] Comment on above: Performed By: #### P T #### [facility] [address] [address] [address] Curly Connell INR GUIDELINES SEE BELOW Normal [facility] Comment on above: Result Comment: DAFNE RED INR: 2.0 - 3.0 CONDITIONS NOT LISTED BELOW 2.5 - 3.5 FOR PROSTHETIC HEART VALVE REPLACEMENT 2.5 - 3.5 RECURRENT THROMBOSIS Performed By: #### P T #### [facility] [address] [address] [address] Curly Connell PT Coag (PPP) [Time] 26.0 s Critically high 9.0-11.6 [facility] Comment on above: Performed By: #### P T #### [facility] [address] [place] [address] Dr. Curly Connell PROTIMEon 05-15-2022 INR Coag (PPP) [Relative time] 4.22 {INR} Critically high [facility] Comment on above: Performed By: #### P T #### [facility] [address] [place] [address] Dr. Curly Connell INR GUIDELINES SEE BELOW Normal [facility] Comment on above: Result Comment: DAFNE RED INR: 2.0 - 3.0 CONDITIONS NOT LISTED BELOW 2.5 - 3.5 FOR PROSTHETIC HEART VALVE REPLACEMENT 2.5 - 3.5 RECURRENT THROMBOSIS Performed By: #### P T #### [facility] [address] [place] [address] Dr. Curly Connell PT Coag (PPP) [Time] 41.5 s Critically high 9.0-11.6 [facility] Comment on above: Performed By: #### P T #### [facility] [address] [place] [address] Dr. Curly Connell PROTIMEon 05-01-2022 INR Coag (PPP) [Relative time] 3.81 {INR} Normal [facility] Comment on above: Performed By: #### P T #### [facility] [address] [place] [address] Dr. Curly Connell INR GUIDELINES SEE BELOW Normal [facility] Comment on above: Result Comment: DAFNE RED INR: 2.0 - 3.0 CONDITIONS NOT LISTED BELOW 2.5 - 3.5 FOR PROSTHETIC HEART VALVE REPLACEMENT 2.5 - 3.5 RECURRENT THROMBOSIS Performed By: #### P T #### [facility] [address] [place] [address] Dr. Curly Connell PT Coag (PPP) [Time] 37.7 s Critically high 9.0-11.6 [facility] Comment on above: Performed By: #### P T #### [facility] [address] [place] [address] Dr. Curly Connell PROTIMEon 04-10-2022 INR Coag (PPP) [Relative time] 2.90 {INR} Normal [facility] Comment on above: Performed By: #### P T #### [facility] [address] [place] [address] Dr. Curly Connell INR GUIDELINES SEE BELOW Normal [facility] Comment on above: Result Comment: DAFNE RED INR: 2.0 - 3.0 CONDITIONS NOT LISTED BELOW 2.5 - 3.5 FOR PROSTHETIC HEART VALVE REPLACEMENT 2.5 - 3.5 RECURRENT THROMBOSIS Performed By: #### P T #### [facility] [address] [place] [address] Dr. Curly Connell PT Coag (PPP) [Time] 29.2 s Critically high 9.0-11.6 [facility] Comment on above: Performed By: #### P T #### [facility] [address] [place] [address] Dr. Curly Connell PROTIMEon 03-28-2022 INR Coag (PPP) [Relative time] 2.52 {INR} Normal [facility] Comment on above: Performed By: #### P T #### [facility] [address] [place] [address] Dr. Curly Connell INR GUIDELINES SEE BELOW Normal [facility] Comment on above: Result Comment: DAFNE RED INR: 2.0 - 3.0 CONDITIONS NOT LISTED BELOW 2.5 - 3.5 FOR PROSTHETIC HEART VALVE REPLACEMENT 2.5 - 3.5 RECURRENT THROMBOSIS Performed By: #### P T #### [facility] [address] [place], [place] [address] Dr. Curly Connell PT Coag (PPP) [Time] 25.6 s Critically high 9.0-11.6 [facility] Comment on above: Performed By: #### P T #### [facility] [address] [place], [place] [address] Dr. Curly Connell PROTIMEon 03-25-2022 INR Coag (PPP) [Relative time] 1.81 {INR} Normal [facility] Comment on above: Performed By: #### P T #### [facility] [address] [address] [address] Curly Connell INR GUIDELINES SEE BELOW Normal [facility] Comment on above: Result Comment: DAFNE RED INR: 2.0 - 3.0 CONDITIONS NOT LISTED BELOW 2.5 - 3.5 FOR PROSTHETIC HEART VALVE REPLACEMENT 2.5 - 3.5 RECURRENT THROMBOSIS Performed By: #### P T #### [facility] [address] [address] [address] Curly Connell PT Coag (PPP) [Time] 18.8 s Critically high 9.0-11.6 [facility] Comment on above: Performed By: #### P T #### [facility] [address] [address] [address] Curly Connell Cardiovascular Lab Reporton 03-21-2022 Cardiovascular Lab Report [facility] MR #: [id number] Department of Physician: Brian Byrne M.D. Division of Service Date: 03/20/2022 Cardiology Birthdate: 1965 Adult Cardiovascular Room #: [place] [address] Cardiovascular Laboratory Report FINAL IMPRESSIONS: 1. Moderate [...] pain, namely gastrointestinal. 4. Follow up with [facility] Cardiology in the next 1 to [...] the right radial artery was obtained. A 6-Vietnamese glide sheath was inserted without difficulty. Bilateral [...] Cormier M.D. Date Trans: 03/21/2022 12:17 A/bouchra [id number] cc: Shania Bhat, MSN, MANAGED CARE LIAISON-C Department Of Surgery [address] [facility] [address] Delon Caballero M.D. [address], [facility] [id number] Normal [facility] CBC AUTO DIFFon 03-18-2022 BASO # 0.1 103/ul Normal 0.0-0.1 [facility] Comment on above: Performed By: #### C BC #### [facility] [address] [place] [address] Dr. Curly Connell Basophils/100 WBC (Bld) 0.8 % Normal 0.2-2.0 [facility] Comment on above: Performed By: #### C BC #### [facility] [address] [place] [address] Dr. Curly Connell EO # 0.1 103/ul Normal 0.0-0.7 [facility] Comment on above: Performed By: #### C BC #### [facility] [address] [address] [address] Curly Connell Eosinophils/100 WBC (Bld) 1.1 % Normal 0.9-7.0 [facility] Comment on above: Performed By: #### C BC #### [facility] [address] [place] [address] Dr. Curly Connell Erythrocyte distribution width (RBC) [Ratio] 20.7 % Critically high 11.0-15.0 [facility] Comment on above: Performed By: #### C BC #### [facility] [address] [place] [address] Dr. Curly Connell Hematocrit (Bld) [Volume fraction] 45.3 % Normal 42.0-54.0 [facility] Comment on above: Performed By: #### C BC #### [facility] [address] [place] [address] Dr. Curly Connell Hemoglobin (Bld) [Mass/Vol] 13.5 g/dL Critically low 14.0-18.0 [facility] Comment on above: Performed By: #### C BC #### [facility] [address] [place] [address] Dr. Curly Connell IG # 0.02 10e3/ul Normal 0.00-0.03 [facility] Comment on above: Performed By: #### C BC #### [facility] [address] [place] [address] Dr. Curly Connell IG % 0.2 % Normal 0.0-0.5 [facility] Comment on above: Performed By: #### C BC #### [facility] [address] [place] [address] Dr. Curly Connell LYMPH # 1.9 103/ul Normal 1.2-3.8 [facility] Comment on above: Performed By: #### C BC #### [facility] [address] [place] [address] Dr. Curly Connell Lymphocytes/100 WBC (Bld) 23.4 % Normal 20.5-60.0 [facility] Comment on above: Performed By: #### C BC #### [facility] [address] [place] [address] Dr. Curly Connell MANUAL DIFF REQ NO Normal [place] Comment on above: Performed By: #### C BC #### [facility] [address] [place] [address] Dr. Curly Connell MCH (RBC) [Entitic mass] 23.0 pg Critically low 25.9-34.0 [facility] Comment on above: Performed By: #### C BC #### [facility] [address] [address] [address] Curly Connell MCHC (RBC) [Mass/Vol] 29.8 g/dL Critically low 29.9-35.2 [facility] Comment on above: Performed By: #### C BC #### [facility] [address] [address] [address] Curly Connell MCV (RBC) [Entitic vol] 77.2 fL Critically low 80.0-94.0 [facility] Comment on above: Performed By: #### C BC #### [facility] [address] [place] [address] Dr. Curly Connell MONO # 0.6 103/ul Normal 0.3-0.8 [facility] Comment on above: Performed By: #### C BC #### [facility] [address] [place] [address] Dr. Curly Connell Monocytes/100 WBC (Bld) 7.7 % Normal 1.7-12.0 [facility] Comment on above: Performed By: #### C BC #### [facility] [address] [place] [address] Dr. Curly Connell NEUT # 5.5 103/ul Normal 1.4-6.5 [facility] Comment on above: Performed By: #### C BC #### [facility] [address] [place] [address] Dr. Curly Connell Neutrophils/100 WBC (Bld) 66.8 % Normal 43.0-75.0 [facility] Comment on above: Performed By: #### C BC #### [facility] [address] [address] [address] Curly Connell Platelet mean volume (Bld) [Entitic vol] 9.8 fL Normal 9.5-13.5 [facility] Comment on above: Performed By: #### C BC #### [facility] [address] [place] [address] Dr. Curly Connell PLT 337 103/ul Normal 150-450 [facility] Comment on above: Performed By: #### C BC #### [facility] [address] [place] [address] Dr. Curly Connell RBC 5.87 106/ul Normal 4.70-6.10 [facility] Comment on above: Performed By: #### C BC #### [facility] [address] [place] [address] Dr. Curly Connell WBC 8.3 103/ul Normal 4.0-11.0 [facility] Comment on above: Performed By: #### C BC #### [facility] [address] [place] [address] Dr. Curly Connell Covid-19 PCR (CVDTBH)on 02-28 SARS-CoV-2 (COVID-19) RNA MARCELLO+probe Ql (Unsp spec) Not detected Normal NOT DETECTED [facility] Comment on above: Result Comment: This test is not yet approved or cleared by the [place] FDA. When there are no FDA-approved or cleared tests available, and other criteria are met, FDA can make tests available under an emergency access mechanism called an Emergency Use Authorization (EUA). The EUA for this test is supported by the [place] of Health and Human Service's (HHS's) declaration [...] consistent with SARS-CoV-2. Performed By: #### C VDTBH #### [facility] [address] [place] [address] Dr. Curly Connell PROF CHEM 8 (BAS METB)on Anion gap [Moles/Vol] 12.9 mmol/L Normal [facility] Comment on above: Performed By: #### P T #### [facility] [address] [address] [address] Curly Connell Calcium [Mass/Vol] 9.1 mg/dL Normal 8.5-10.1 [facility] Comment on above: Performed By: #### P T #### [facility] [address] [address] [address] Curly Connell Chloride [Moles/Vol] 105 mmol/L Normal 98-107 [facility] Comment on above: Performed By: #### P T #### [facility] [address] [address] [address] Curly Connell CO2 [Moles/Vol] 26.0 mmol/L Normal 21.0-32.0 [facility] Comment on above: Performed By: #### P T #### [facility] [address] [place] [address] Dr. Curly Connell Creatinine [Mass/Vol] 1.34 mg/dL Critically high 0.70-1.30 [facility] Comment on above: Performed By: #### P T #### [facility] [address] [address] [address] Curly Connell EGFR-AF OMANI >60 Normal >=60 [facility] Comment on above: Performed By: #### P T #### [facility] [address] [place] [address] Dr. Curly Connell EGFR-NON AF OMANI 55 mL/min/1.73m2 Critically low >=60 [facility] Comment on above: Performed By: #### P T #### [facility] [address] [address] [address] Curly Connell Glucose [Mass/Vol] 122 mg/dL Critically high 74-106 [facility] Comment on above: Performed By: #### P T #### [facility] [address] [address] [address] Curly Connell Potassium [Moles/Vol] 4.9 mmol/L Normal 3.5-5.1 [facility] Comment on above: Performed By: #### P T #### [facility] [address] [address] [address] Curly Connell Sodium [Moles/Vol] 139 mmol/L Normal 136-145 [facility] Comment on above: Performed By: #### P T #### [facility] [address] [place] [address] Dr. Curly Connell Urea nitrogen [Mass/Vol] 26.0 mg/dL Critically high 7.0-18.0 [facility] Comment on above: Performed By: #### P T #### [facility] [address] [address] [address] Curly Connell Urea nitrogen/Creatinine [Mass ratio] 19.4 mg/mg Normal [facility] Comment on above: Performed By: #### P T #### [facility] [address] [place] [address] Dr. Curly Connell PROTIMEon 03-12-2022 INR Coag (PPP) [Relative time] 2.73 {INR} Normal [facility] Comment on above: Performed By: #### P T #### [facility] [address] [place] [address] Dr. Curly Connell INR GUIDELINES SEE BELOW Normal [facility] Comment on above: Result Comment: DAFNE RED INR: 2.0 - 3.0 CONDITIONS NOT LISTED BELOW 2.5 - 3.5 FOR PROSTHETIC HEART VALVE REPLACEMENT 2.5 - 3.5 RECURRENT THROMBOSIS Performed By: #### P T #### [facility] [address] [place] [address] Dr. Curly Connell PT Coag (PPP) [Time] 27.6 s Critically high 9.0-11.6 [facility] Comment on above: Performed By: #### P T #### [facility] [address] [place] [address] Dr. Curly Connell NM STRESS/REST MULTIon 03-07 NM STRESS/REST MULTI Patient: DORIS LUISKenneth Exam Date: 03/07/2022 : 1965 Gender:M Ordering : DR DELON CABALLERO . Admission #: [id number] Family : Order #: [id number] CLICK HERE TO VIEW EXAM RADIOLOGY REPORT [...] Humphreys MD on 03/08/2022 at 11:55 Normal [facility] ECHOCARDIO M/2D COMPLETEon 0 02-20-2022 ECHOCARDIO M/2D COMPLETE Patient: DORIS LUIS Exam Date: 02/20/2022 : 1965 Gender:M Ordering : DR DELON CABALLERO . Admission #: [id number] Family : Order #: [id number] CLICK HERE TO VIEW EXAM ECHOCARDIOGRAM REPORT [...] Pepe M.D. on 02/21/2022 at 12:46 Normal [facility] PROTIMEon 02-13-2022 INR Coag (PPP) [Relative time] 2.92 {INR} Normal [facility] Comment on above: Performed By: #### P T #### [facility] [address] [place] [address] Dr. Curly Connell INR GUIDELINES SEE BELOW Normal [facility] Comment on above: Result Comment: DAFNE RED INR: 2.0 - 3.0 CONDITIONS NOT LISTED BELOW 2.5 - 3.5 FOR PROSTHETIC HEART VALVE REPLACEMENT 2.5 - 3.5 RECURRENT THROMBOSIS Performed By: #### P T #### [facility] [address] [place], [place] [address] Dr. Curly Connell PT Coag (PPP) [Time] 29.4 s Critically high 9.0-11.6 [facility] Comment on above: Performed By: #### P T #### [facility] [id number] Curly Connell CHEMISTRYOrdered By: Lab ROP User on 01-17-2022 Glucose [Mass/Vol] 121 mg/dL High 55 - 99 mg/dL [facility] POC Subsection Comment on above: Result Comment: Asael thompson RN/ POC Device SN [id number] Invalid Interpretation Code [facility] POC Subsection POC User ID [id number] Invalid Interpretation Code [facility] POC Subsection POC Username LADYVARUNSHANIKA MURDOCK Invalid Interpretation Code [facility] POC Subsection COAGULATIONOrdered By: Efrem Moscoso on 01-17-2022 aPTT Coag (PPP) [Time] 36.2 s Normal 25.1 - 36.5 second(s) [facility] Auto Coag INR Coag (PPP) [Relative time] 1.1 {INR} Invalid Interpretation Code [facility] Auto Coag PT Coag (PPP) [Time] 13.4 s High 10.2 - 12.9 second(s) [facility] Auto Coag CHEMISTRYOrdered By: Efrem soria on 01-11-2022 Anion gap [Moles/Vol] 12 mmol/L Normal 6 - 16 mEq/L [facility]isol Calcium [Mass/Vol] 9.1 mg/dL Normal 8.9 - 11. 1 mg/dL [facility] Remisol Chloride [Moles/Vol] 105 mmol/L [...] 138 mmol/L Normal 135 - 145 mmol/L [facility] Remisol Urea nitrogen [Mass/Vol] 17 mg/dL Normal 5 - 21 mg/dL [facility] Remisol Urea nitrogen/Creatinine [Mass ratio] 17 mg/mg Normal 10 - 20 [facility] Remisol CHEMISTRYOrdered By: SYSTEM SYSTEM on 01-11-2022 GFR/1.73 sq M.predicted among blacks MDRD (S/P/Bld) [Vol rate/Area] mL/min/1.73 m2 Normal >=59mL/min/1 .73 m2 [facility] Chem S GFR/1.73 sq M.predicted among non-blacks MDRD (S/P/Bld) [Vol rate/Area] mL/min/1.73 m2 Normal >=59mL/min/1 .73 m2 [facility] Chem S COAGULATIONOrdered By: Jomar Cheema on 01-11-2022 aPTT Coag (PPP) [Time] 43.3 s High 25.1 - 36.5 second(s) [facility] Auto Coag INR Coag (PPP) [Relative time] 3.0 {INR} Invalid Interpretation Code [facility] Auto Coag PT Coag (PPP) [Time] 35.7 s High 10.2 - 12.9 second(s) [facility] Auto Coag HEMATOLOGYOrdered By: SYSTEM SYSTEM on [...] Ql (Bld) Present (01/11/22 1:18 PM) Normal [facility] MCH (RBC) [Entitic mass] 24.5 pg Low 27.0 - 34.0 pg [facility] HemeAutoSS MCHC (RBC) [Mass/Vol] 32.4 g/dL Normal 31.4 - 36.0 gm/dL [facility] HemeAutoSS MCV (RBC) [Entitic vol] 75.5 fL Low 80.0 - 100.0 fL [facility] HemeAutoSS Morphology Lazaro (Bld) [Interp] See Morphology (01/11/22 1:18 PM) Normal [facility] Ovalocytes LM Ql (Bld) Present (01/11/22 [...] PM) Normal Negative [facility] UA Auto SS [place].plasma/[place] .RBC (Bld) [Mass ratio] 0-3 /HPF Normal [...] Desc Clean Catch (01/11/22 1:18 PM) Normal [facility] UA Auto SS Urobilinogen Qn (U) 0.1977964 {Rashida'U}/dL Normal 0.0 - 1.0 EU/dL [facility] UA Auto SS WBC Auto Ql (U) Negative (01/11/22 1:18 PM) Normal Negative [facility] UA Auto SS WBC LM.HPF (Urine sed) [#/Area] 0-5 /HPF Normal 0-5/HPF [facility] UA Auto SS OPERATIVE REPORTon 9 OPERATIVE REPORT [address] [id number] OPERATIVE REPORT PATIENT NAME: DORIS LUIS : 1965 MED REC NO: [id number] ROOM: [facility] ACCOUNT NO: [id number] ADMIT DATE: 01/18/2019 PROVIDER: Efrem Matson DATE [...] little over 2 months. He has tried intensive care specialist without benefit and imaging demonstrates the presence [...] small incision in the fascia, and the [employer] tube dilator system was used to dilate [...] evidence of complication. EFREM MATSON [id number] Doc#: [id number] CC: Normal [facility] APTTon 01-18-2019 aPTT Coag time (Bld) 19.5 s Low 20.5-30.5 [facility] Comment on above: Result Comment: No c lot found in specimen, results questionable. TEST CONFIRMED Performed By: #### P T, PTT #### [address] [address] Workforce Development Program Director: Panchito Nguyen MD PTon 01-18-2019 INR Coag RelTime (PPP) 0.9 {INR} Normal [facility] Comment on above: Result Comment: Therapeutic Range: Moderate Anticoagulant Intensity: INR = 2.0-3.0 High Anticoagulant Intensity: INR = 2.5-3.5 No clot found in specimen, results questionable. Performed By: #### P T, PTT #### [address] [id number] Workforce Development Program Director: Panchito Nguyen MD Prothrombin time (PT) Coag time (PPP) 9.5 s Normal 9.0-12.0 [facility] Comment on above: Result Comment: No c lot found in specimen, results questionable. Performed By: #### P T, PTT #### [facility] [address] [place] [address] Workforce Development Program Director: Panchito Nguyen MD Type + Screenon 01-18-2019 Type + Screen Sample Expiration 01/21/2019 Arm Band Number [id number] ABO/Rh(D) A POSITIVE Antibody Screen NEGATIVE Normal [facility] Comment on above: Performed By: #### T YS #### [facility] [place] [address] [place] [address] Workforce Development Program Director: Panchito Nguyen MD XR LUMBAR SPINE (2-3 [...] Anup Guerrero MD 01/18/19 Final result Normal [facility] Vital Signs Date Time Vital Sign Value Performing Clinician Facility 12-30-2023 11:17-0400 Blood Pressure Location [facility] 12-30-2023 11:17-040 Body temperature 98.42 [degF] [facility] 12-30-2023 11:17-0400 Diastolic blood pressure 88 mm[Hg] [facility] 12-30-2023 11:17-0400 Heart rate 83 /min Elsy Orzech [facility] 12-30-2023 11:17-0400 Respiratory rate 16 /min Elsy Orzech [facility] 12-30-2023 11:17-0400 Systolic blood pressure 122 mm[Hg] Elsy Orzech [facility] 08-29-2023 13:46-0500 Blood Pressure Location Jamil NILL [facility] 08-29-2023 13:46-0500 Diastolic blood pressure 78 mm[Hg] [facility] N[facility] 08-29-2023 13:46-0500 Heart rate 72 /min Jamil NILL [facility] 08-29-2023 13:46-0500 Respiratory rate 16 /min Jamil NILL [facility] 08-29-2023 13:46-0500 Systolic blood pressure 126 mm[Hg] [facility] N[facility] 03-12-2023 14:22-0400 Blood Pressure Location Jamil NILL [facility] 03-12-2023 14:22-0400 Diastolic blood pressure 78 mm[Hg] Jam[facility] NILL [facility] 03-12-2023 14:22-0400 Heart rate 72 /min Jamil NILL [facility] 03-12-2023 14:22-0400 Respiratory rate 16 /min Jamil NILL [facility] 03-12-2023 14:22-0400 Systolic blood pressure 126 mm[Hg] Jamil NILL [facility] 07-03-2022 13:18-0400 Blood Pressure Location EDGAR DANIELLE [facility] 07-03-2022 13:18-0400 Diastolic blood pressure 76 mm[Hg] EDGAR DANIELLE [facility] 07-03-2022 13:18-0400 Heart rate 62 /min EDGAR CORADORY [facility] 07-03-2022 13:18-0400 Systolic blood pressure 128 mm[Hg] EDGAR DANIELLE [facility] 01-17-2022 12:56-0400 Blood Pressure Location [facility] 01-17-2022 12:56-0400 BP/Pulse Patient Position [facility] 01-17-2022 12:56-0400 Diastolic blood pressure 79 mm[Hg] [facility] 01-17-2022 12:56-0400 Heart rate 50 /min [facility] 01-17-2022 12:56-0400 Mean blood pressure 94 mm[Hg] [facility] 01-17-2022 12:56-0400 SaO2% (BldA) [Mass fraction] 96 % [facility] 01-17-2022 12:56-0400 Systolic blood pressure 125 mm[Hg] [facility] 01-17-2022 12:56-0400 Body temperature 97.52 [degF] [facility] 01-17-2022 12:01-0400 Blood Pressure Location [facility] 01-17-2022 12:01-0400 BP/Pulse Patient Position [facility] 01-17-2022 12:01-0400 Diastolic blood pressure 83 mm[Hg] [facility] 01-17-2022 12:01-0400 Heart rate 49 /min [facility] 01-17-2022 12:01-0400 Mean blood pressure 98 mm[Hg] [facility] 01-17-2022 12:01-0400 Respiratory rate 16 /min [facility] 01-17-2022 12:01-0400 SaO2% (BldA) [Mass fraction] 94 % [facility] 01-17-2022 12:01-0400 Systolic blood pressure 129 mm[Hg] [facility] 01-17-2022 12:01-0400 Body temperature 97.34 [degF] [facility] 01-17-2022 11:55-0400 Blood Pressure Location [facility] 01-17-2022 11:55-0400 Body temperature 97.34 [degF] [facility] 01-17-2022 11:55-0400 Diastolic blood pressure 81 mm[Hg] [facility] 01-17-2022 11:55-0400 Heart rate 50 /min [facility] 01-17-2022 11:55-0400 Respiratory rate 12 /min [facility] 01-17-2022 11:55-0400 SaO2% (BldA) [Mass fraction] 97 % [facility] 01-17-2022 11:55-0400 Systolic blood pressure 126 mm[Hg] [facility] 01-17-2022 11:40-0400 Respiratory rate 16 /min [facility] 01-17-2022 11:25-0400 Respiratory rate 18 /min [facility] 01-17-2022 11:00-0400 Respiratory rate 25 /min [facility] 01-17-2022 10:55-0400 Respiratory rate 26 /min [facility] 01-17-2022 08:12-0400 gluc 121 mg/dL [facility] 01-17-2022 07:52-0400 Body temperature 97.7 [degF] [facility] 01-17-2022 07:52-0400 BP/Pulse Patient Position [facility] 01-17-2022 07:52-0400 Mean blood pressure 95 mm[Hg] [facility] 01-17-2022 07:52-0400 Heart rate 48 /min [facility] 01-11-2022 12:42-0400 Diastolic blood pressure 81 mm[Hg] [facility] 01-11-2022 12:42-0400 Heart rate 44 /min [facility] 01-11-2022 12:42-0400 Mean blood pressure 97 mm[Hg] [facility] 01-11-2022 12:42-0400 Respiratory rate 16 /min [facility] 01-11-2022 12:42-0400 SaO2% (BldA) [Mass fraction] 98 % [facility] 01-11-2022 12:42-0400 Systolic blood pressure 131 mm[Hg] [facility] 01-11-2022 12:42-0400 Blood Pressure Location [facility] 01-11-2022 12:42-0400 Body temperature 97.7 [degF] [facility] 01-11-2022 12:40-0400 Blood Pressure Location [facility] 01-11-2022 12:40-0400 Diastolic blood pressure 90 mm[Hg] [facility] 01-11-2022 12:40-0400 Heart rate 46 /min [facility] 01-11-2022 12:40-0400 Mean blood pressure 108 mm[Hg] [facility] 01-11-2022 12:40-0400 Respiratory rate 16 /min [facility] 01-11-2022 12:40-0400 SaO2% (BldA) [Mass fraction] 98 % [facility] 01-11-2022 12:40-0400 Systolic blood pressure 144 mm[Hg] [facility] Encounters Encounter Date Encounter Type Care Provider Facility Start: 02-10-2024 End: 02-11-2024 ambulatory Elsy X Orzech Facility:[facility] Start: 02-10-2024 End: 02-10-2024 Patient encounter procedure Elsy X Orzech [facility] Start: 12-30-2023 End: 12-31-2023 ambulatory Elsy X Orzech Facility:[facility] Start: 12-30-2023 End: 12-31-2023 ambulatory Elsy X Orzech Facility:[facility] Start: 12-30-2023 End: 12-30-2023 Lab Drop off Elsy X [facility] Start: 12-30-2023 End: 12-30-2023 Patient encounter procedure Elsy X Orzech [facility] Start: 09-17-2023 End: 09-18-2023 ambulatory Jamil DE LUNA Facility:[id number] Start: 09-14-2023 Chart abstracting Generic Exte rnal Data Provider GENERIC EXTERNAL DATA DEPARTMENT Start: 08-29-2023 End: 08-30-2023 ambulatory Jamil PLAZAL Facility:[facility] Start: 08-29-2023 End: 08-29-2023 Patient encounter procedure Jamil R NILL [facility] [place] Start: 08-14-2023 End: 08-14-2023 ambulatory [facility] Start: 03-12-2023 End: 03-13-2023 ambulatory Jamil R NILL Facility:[facility] Start: 03-12-2023 End: 03-12-2023 Patient encounter procedure Jamil R NILL [facility] Start: 02-26-2023 End: 02-26-2023 ambulatory ALFIE RAZA Facility:[facility] Start: 02-19-2023 ambulatory Delon Caballero Facility:[facility] Start: 02-18-2023 End: 02-19-2023 ambulatory PA-C EDGAR DANIELLE Facility:[facility] Start: 02-18-2023 End: 02-19-2023 ambulatory PAMarichuy DANIELLE Facility:[facility] Start: 02-04-2023 End: 02-05-2023 ambulatory SHANIA BHAT Facility:[facility] Start: 01-31-2023 End: 02-01-[address] DELON CABALLERO . Facility:[facility] Start: 01-31-2023 End: 01-31-2023 ambulatory SHANIA BHAT [facility] Start: 01-21-2023 End: 01-22-2023 ambulatory EDGAR DANIELLE Facility:[facility] Start: 12-30-2022 End: 12-31-[address] DELON CABALLERO . Facility:[facility] Start: 10-14-2022 End: 10-15-[address] DELON CABALLERO . Facility:[facility] Start: 09-16-2022 End: 09-17-[address] DELON CABALLERO . Facility:[facility] Start: 08-07-2022 End: 08-28-[address] DELON CABALLERO . Facility:[facility] Start: 07-17-2022 End: 07-18-2022 ambulatory EDGAR DANIELLE Facility:[facility] Start: 07-03-2022 End: 07-04-2022 ambulatory EDGAR DANIELLE Facility:[facility] Start: 07-03-2022 End: 07-03-2022 Patient encounter procedure EDGAR DANIELLE [facility] Start: 07-01-2022 End: 07-02-2022 ambulatory EDGARBEVERLY DANIELLE Facility:[facility] Start: 06-29-[address] DELON CABALLERO . Facili ty:[facility] Start: 06-05-2022 End: 06-29-[address] DELON CABALLERO . Facility:[facility] Start: 05-24-[address] DELON CABALLERO . Facili ty:[facility] Start: 05-01-2022 End: 05-29-[address] DELON CABALLERO . Facility:[facility] Start: 04-10-2022 End: 04-26-[address] DELON CABALLERO . Facility:[facility] Start: 03-25-2022 End: 03-29-[address] DELON CABALLERO . Facility:[facility] Start: 03-20-2022 End: 03-21-2022 ambulatory DAGOBERTO CORMIER Facility:[facility] Start: 03-18-2022 End: 03-19-2022 ambulatory SHANIA MALCOLMS Facility:[facility] Start: 03-07-2022 End: 03-29-[address] DELON CABALLERO . Facility:[facility] Start: 03-07-2022 End: 03-08-[address] DELON CABALLERO . Facility:[facility] Start: 02-20-2022 End: 02-21-[address] DELON CABALLERO . Facility:[facility] Start: 01-17-2022 End: 01-17-2022 Admission to same day surgery center [facility] Start: 01-11-2022 End: 01-11-2022 Patient encounter procedure [facility] Start: 12-25-2021 End: 12-25-2021 Patient encounter procedure [facility] Jr[facility]eth [facility] Start: 01-18-2019 End: 01-19-2019 Patient encounter procedure EFREM MATSON [facility] Procedures Date Procedure Procedure Detail Performing Clinician Start: 12-13-2023 Echography of kidney Au mariza [place] Start: 07-03-[address] SONIDO CABALLERO . Comment on above: Performed By: #### P T #### [facility] [address] [place] [address] Dr. Curly Connell Start: 01-17-2022 Fluoroscopy guided extracorporeal shockwave lithotripsy of calculus of left ureter [facility] Start: 09-20-2021 Cystoscopy David valdez Comment on above: rt. stent removal,ur eteroscopy,retrogade nephroscopy basket retrieval. Start: 07-10-2021 Cystoscopy David Jono valdez Start: 01-08-2021 Extracorporeal shock wave lithotripsy of calculus of kidney David Pacheco JrKenneth Start: 11-06-2020 Extracorporeal shock wave lithotripsy of calculus of kidney David Pacheco JrKenneth Start: 08-09-2019 Cystoscopic removal of ureteric stent David Pacheco Start: 07-22-2019 Cystoscopic insertio n of ureteric stent David Pacheco Comment on above: cysto, L stone extra ction, L stent placement Start: 07-12-2019 Placement of stent i n cardiac conduit David Junior Mccollum Start: 01-19-2019 DISCHARGE PATIENT EFREM MATSON Start: [...] EFREM MATSON Start: 01-18-2019 Calcium ionized EFREM TREVINO Start: 01-18-2019 Gluc bld gluc mntr d ev cleared fda spec home use EFREM MATSON Start: 01-18-2019 Potassium serum plas ma/whole blood EFREM MATSON Start: 01-18-2019 Sodium serum plasma or whole blood EFREM MATSON Start: 01-18-2019 TYPE AND SCREEN EFREM TREVINO Start: 01-18-2019 Prothrombin time EFREM MATSON Start: 11-14-2014 Colonoscopy Jamil CHUNG Start: 07-06-2014 Cystoscopy and retro grade pyelography David Pacheco Jr. Start: 09-29-2009 Hemorrhoidectomy Michae l NILL Cardiac catheterization Nicanor ael NILL Excision of lipoma Jamil ELIZABETH Extraction of cataract Heladio el NILPhong Angela filter, d evice (physical object) David Pacheco Jr. Angela filter, d evice (physical object) David Pacheco Jr. Hemorrhoidectomy David Anson lyons Jr. History of operative procedure on knee David Junior Mccollum History of operative procedure on lumbar spinal structure Jamil DE LUNA Removal of thrombus Jamil DE LUNA Repair of meniscus Jamil ELIZABETH Special back care David Jono valdez Jr. Tonsillectomy David Pacheco Lacy bradley Plan of Treatment Date Care Activity Detail Author Start: 10-30-2024 Diabetes Screening Diabetes Screenin g [facility] Start: 05-30-2023 Influenza vaccination Influenza Vacc ine (#1) [facility] Start: 2023 RSV Vaccine (1 - 1-d ose 60+ series) RSV Vaccine (1 - 1-dose 60+ series) [facility] Start: 09-29-2022 Depression Assessment Depression Ass essment [facility] Start: 2018 Prostate specific an tigen measurement Prostate Cancer Screening Discussion [facility] Start: 2013 Shingrix Vaccine (1 of 2) Adair grix Vaccine (1 of 2) [facility] Start: 2008 Screening for malign ant neoplasm of colon [facility] Start: 1998 Lipid panel Lipid Screening [facility] Start: 1982 Urine microalbumin profile DTa P,Tdap,Td Vaccine (1 - Tdap) [facility] Start: 1981 Hepatitis C screening Hepatitis C Sc reening [facility] Start: 1981 HIV screening HIV Screening [facility] Start: 1965 Covid-19 Vaccine (#1) Covid-19 Vacci ne (#1) [facility] Immunizations Immunization Date Immunization Notes Care Provider Renzo gatica 02-26-2023 tetanus toxoid, reduced diphtheria toxoid, and acellular pertussis vaccine, adsorbed Elsy England [facility] 08-27-2017 influenza, unspecifi ed formulation EDGAR DANIELLE [facility] 08-27-2017 influenza virus vaccine, unspecified formulation Generic Provider [facility] 06-26-2016 influenza, unspecifi ed formulation EDGAR ELIJAH [facility] NEGATED: Highlighted row has not occurred!08-29-2023 influenza virus vaccine, unspecified formulation Jamil DE LUNA [facility] [place] Payers Date Payer Category Payer Medicare MEDICARE MEDICAR E A AND B [id number] 2017-Present [phone] [place] [address] Medicare [id number] 1965 Unknown [id number] 2.16.840.1.166025.3.579.2.175 1965 Unknown [id number] 2.16.840.1.855965.3.579.2.647 1965 Unknown [id number] 2.16.840.1.190184.3.579.2.593 1963 Unknown [id number] 2.16.840.1.953643.3.579.2.593 1963 Unknown [id number] 2.16.840.1.851553.3.579.2.593 1963 Unknown [id number] 2.16.840.1.396579.3.579.2.593 1963 Unknown [id number] 2.16.840.1.093757.3.579.2.593 1963 Unknown [id number] 2.16.840.1.311913.3.579.2.593 1963 Unknown [id number] 2.16.840.1.849075.3.579.2.593 1963 Unknown [id number] 2.16.840.1.878342.3.579.2.593 1963 Unknown [id number] 2.16.840.1.787753.3.579.2.593 1963 Unknown [id number] 2.16.840.1.406441.3.579.2.593 1963 Unknown [id number] 2.16.840.1.956156.3.579.2.593 1963 Unknown [id number] 2.16.840.1.885674.3.579.2.593 1963 Unknown [id number] 2.16.840.1.032999.3.579.2.593 1963 Unknown [id number] 2.16.840.1.922359.3.579.2.593 1963 Unknown [id number] 2.16.840.1.291765.3.579.2.593 1963 Unknown [id number] 2.16.840.1.304418.3.579.2.593 1963 Unknown [id number] 2.16.840.1.930891.3.579.2.593 1963 Unknown [id number] 2.16.840.1.667248.3.579.2.593 1963 Unknown [id number] 2.16.840.1.670433.3.579.2.593 1963 Unknown [id number] 2.16.840.1.381549.3.579.2.593 1963 Unknown [id number] 2.16.840.1.625990.3.579.2.593 1963 Unknown [id number] 2.16.840.1.774851.3.579.2.718 1963 Unknown [id number] 2.16.840.1.408758.3.579.2.727 1963 Unknown [id number] 2.16.840.1.230916.3.579.2.727 1963 Unknown [id number] 2.16.840.1.283057.3.579.2.727 1963 Unknown [id number] 2.16.840.1.419110.3.579.2.727 1963 Unknown [id number] 2.16.840.1.361858.3.579.2. 1963 Unknown [id number] 2.16.840.1.564348.3.579.2. 1963 Unknown [id number] 2.16.840.1.497525.3.579.2.727 1963 Unknown [id number] 2.16.840.1.970526.3.579.2.727 1965 Unknown [id number] 2.16.840.1.662015.3.579.2.727 1961 Medicare [id number] 1961 Unknown [id number] Social History Date Type Detail Facility Start: 08-08-2021 Tobacco smoking status Never s moked tobacco (finding) [facility] Tobacco smoking status Never [facility] Sex Assigned At Male [facility] Start: 03-12-2023 End: 12-30-2023 Tobacco smoking status Ex-smoker (finding) [facility] [place] Start: 10-29-2021 Alcohol intake Current drinke r of alcohol (finding) [facility] Start: 1965 Sex Assigned At Not on file [facility] Medical Equipment Procedure Code Equipment Code Equipment Origin al Text Equipment Identifier Dates FDA Start: 09-20-2021 FDA Start: 09-20-2021 FDA Start: 09-20-2021 CYSTOSCOPY URETEROSCOPY POLLY ISRAELSpencer 09/20/21 Unknown Ureter R FDA Start: 09-20-2021 [...] 09-20-2021 Functional Status Date Assessment Result Facility 12-30-2023 Functional Status N/A [facility] 08-29-2023 Functional Status N/A [facility] 03-12-2023 Functional Status N/A [facility] 07-03-2022 Functional Status N/A [facility] Clinical Notes 08-27-2021 to 12-30-2023 Note Date & Type Note Facility 12-30-2023 Evaluation + Plan note Diagnostic Tests PendingElectrolyte Panel 12/30/23 [facility] 12-30-2023 Hospital Discharge instructions Patient Education 12/30/2023 11:28:26 Dietary Guidelines to Help Prevent Kidney Stones Dietary Guidelines to Help Prevent Kidney Stones Kidney stones are deposits of minerals and salts that form inside your kidneys. Your risk of developing kidney stones may be greater depending on your diet, your lifestyle, the medicines you take, and whether you have certain medical conditions. Most people can lower their risks of developing kidney stones by following these dietary guidelines. Your dietitian may give you more specific instructions depending on your overall health and the type of kidney stones you tend to develop. What are tips for following this plan? Reading food labels Choose foods with no salt added or low-salt labels. Limit your salt (sodium) intake to less than 1,500 mg a day. Choose foods with calcium for each meal and snack. Try to eat about 300 mg of calcium at each meal. Foods that contain 200 500 mg of calcium a serving include: ?8 oz (237 mL) of milk, syqcakm-jnipzepqmhdi-szgzo milk, and calcium-fortifiedfruit juice. Calcium-fortified means that calcium has been added to these drinks. ?8 oz (237 mL) of kefir, yogurt, and soy yogurt. ?4 oz (114 g) of tofu. ?1 oz (28 g) of cheese. ?1 cup (150 g) of dried figs. ?1 cup (91 g) of cooked broccoli. ?One 3 oz (85 g) can of sardines or mackerel. Most people need 1,000 1,500 mg of calcium a day. Talk to your dietitian about how much calcium is recommended for you. Shopping Buy plenty of fresh fruits and vegetables. Most people do not need to avoid fruits and vegetables, even if these foods contain nutrients that may contribute to kidney stones. When shopping for convenience foods, choose: ?Whole pieces of fruit. ?Pre-made salads with dressing on the side. ?Low-fat fruit and yogurt smoothies. Avoid buying frozen meals or prepared deli foods. These can be high in sodium. Look for foods with live cultures, such as yogurt and kefir. Choose high-fiber grains, such as whole-wheat breads, oat bran, and wheat cereals. Cooking Do not add salt to food when cooking. Place a salt shaker on the table and allow each person to add their own salt to taste. Use vegetable protein, such as beans, textured vegetable protein (TVP), or tofu, instead of meat in pasta, casseroles, and soups. Meal planning Eat less salt, if told by your dietitian. To do this: ?Avoid eating processed or pre-made food. ?Avoid eating fast food. Eat less animal protein, including cheese, meat, poultry, or fish, if told by your dietitian. To do this: ?Limit the number of times you have meat, poultry, fish, or cheese each week. Eat a diet free of meat at least 2 days a week. ?Eat only one serving each day of meat, poultry, fish, or seafood. ?When you prepare animal proteins, cut pieces into small portion sizes. For most meat and fish, one serving is about the size of the palm of your hand. Eat at least five servings of fresh fruits and vegetables each day. To do this: ?Keep fruits and vegetables on hand for snacks. ?Eat one piece of fruit or a handful of berries with breakfast. ?Have a salad and fruit at lunch. ?Have two kinds of vegetables at dinner. You may be told to limit foods that are high in a substance called oxalate. These include: ?Spinach (cooked), rhubarb, beets, sweet potatoes, and [place] chard. ?Peanuts. ?Potato chips, mauritian fries, and baked potatoes with skin on. ?Nuts and nut products. ?Chocolate. If you regularly take a diuretic medicine, make sure to eat at least 1 or 2 servings of fruits or vegetables that are high in potassium each day. These include: ?Avocado. ?Banana. ?[place], prune, carrot, or tomato juice. ?Baked potato. ?Cabbage. ?Beans and split peas. Lifestyle Drink enough fluid to keep your urine pale yellow. This is the most important thing you can do. Spread your fluid intake throughout the day. If you drink alcohol: ?Limit how much you have to: ?0 1 drink a day for women who are not . ?0 2 drinks a day for men. ?Know how much alcohol is in your drink. In the [place] one drink equals one 12 oz bottle of beer (355 mL), one 5 oz glass of wine (148 mL), or one 1 oz glass of hard liquor (44 mL). Lose weight if told by your health care provider. Work with your dietitian to find an eating plan and weight loss strategies that work best for you. General information Talk to your health care provider and dietitian about taking daily supplements. Depending on your health and the cause of your kidney stones, you may be told: ?Do not take high-dose supplements of vitamin C (1,000 mg a day or more). ?To take a calcium supplement. ?To take a daily probiotic supplement. ?To take other supplements such as magnesium, fish oil, or vitamin B6. Take dwfg-ckm-aolbzvr and prescription medicines only as told by your health care provider. These include supplements. What foods should I limit? Limit your intake of the following foods, or eat them as told by your dietitian. Vegetables Spinach. Rhubarb. Beets. Canned vegetables. Pickles. Olives. Baked potatoes with skin. Grains Wheat bran. Baked goods. Salted crackers. Cereals high in sugar. Meats and other proteins Nuts. Nut butters. Large portions of meat, poultry, or fish. Salted, precooked, or cured meats, such as sausages, meat loaves, and hot dogs. Dairy Cheeses. Beverages Regular soft drinks. Regular vegetable juice. Seasonings and condiments Seasoning blends with salt. Salad dressings. Soy sauce. Ketchup. Barbecue sauce. Other foods Canned soups. Canned pasta sauce. Casseroles. Pizza. Lasagna. Frozen meals. Potato chips. Vietnamese fries. The items listed above may not be a complete list of foods and beverages you should limit. Contact a dietitian for more information. What foods should I avoid? Talk to your dietitian about specific foods you should avoid based on the type of kidney stones you have and your overall health. Fruits Grapefruit. The item listed above may not be a complete list of foods and beverages you should avoid. Contact a dietitian for more information. Summary Kidney stones are deposits of minerals and salts that form inside your kidneys. You can lower your risk of kidney stones by making changes to your diet. The most important thing you can do is drink enough fluid. Drink enough fluid to keep your urine pale yellow. Talk to your dietitian about how much calcium you should have each day, and eat less salt and animal protein as told by your dietitian. This information is not intended to replace advice given to you by your health care provider. Make sure you discuss any questions you have with your health care provider. Document Revised: 12/26/2022 Document Reviewed: 12/26/2022 [employer] Patient Education 2022 [employer]. Follow Up Care 02/18/2023 15:25:52 With:XIOMARA England APRN, JOSE Nash, URL Address: When:Within 1 Year(s) Comments:w/PSA With:EDGAR DANIELLE PA-C, URL Address: [address] [facility] [place] [address] When: Unknown With:Samanta GRIFFIN XIOMARA, Elsy X, FAM, URL Address: When: Unknown [facility] [place] 08-29-2023 Note Chief Complaint consultation for rectal [...] managed by Dr Caballero. 2. 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 [facility] Comment on above: Result Comment: Elec tronically Signed By: ANNAMARIE ISRAEL, Jamil Hager.dixie\Date and Time Signed: 08/29/23 14:39 EST 08-14-2023 Note [facility] Cardiology Clinic Note Chief Complaint: Patient [...] to, cardiopulmonary vas (more content not included)... [facility] 04-01-2023 Note Chief Complaint consultation for constipation [...] (08/09/2019), Cystoscopic insertion (more content not included)... [facility] Comment on above: Result Comment: Elec [...] at home: Medicines ? 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 ? Change your dressing as told by [...] by your health (more content not included)... [facility] 01-31-2023 Note Will send pt to pulm onology for evaluation and PFT's Reviewed recent echo 01/2022 and normal EF- LVSF; no significant valvular abnormalities and rt sided pressures. [facility] 01-31-2023 Note Sending for routine annual labs today in light he remains fasting, will add A1C to labs to assess glycemic management [facility] 01-31-2023 Note Hypertension is 130/ 91- States at home b/p is typically well controlled Continue all meds [facility] 01-31-2023 Note [facility] CARDIOLOGY PROGR ESS NOTE HPI: Doris Luis is a 57 y.o. 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 Admits continued shortness of breath with exertion- carrying items, bending over to pickle processor items, and with exercise. Denied orthopnea, palpitations, [...] sided pressures Assessment/Plan: Coronary artery disease involving iliamna coronary artery of iliamna heart without angina pectoris Coronary artery disease [...] on warfarin anticoagulation (more content not included)... [facility] 01-31-2023 Note Patient here for 10 mo [...] All other systems reviewed and are negative. [facility] 01-31-2023 Note Remains on warfarin anticoagulation [facility] 01-31-2023 Note Continue crestor Script for lipid level and liver function provided to pt- will have drawn today [facility] 01-31-2023 Note Continue amlodipine [place] [facility] 01-31-2023 Note Coronary artery dise ase is stable without any concerning symptoms Continue GDMT- ASA, crestor, metoprolol, lisinopril continue risk factor modifications- heart healthy diet, regular exercise as tolerated and continue all medications. [facility] 07-03-2022 Hospital Discharge instructions Patient Education 07/03/2022 13:32:37 Kidney Stones, Fney-dz-Agwr Kidney Stones Kidney stones are rock-like masses [...] Follow these instructions at home: Medicines Take xgyt-qje-bxopypj and prescription medicines only as told by [...] 03/03/2009 Document Revised: 02/01/2020 Document Reviewed: 02/01/2020 [employer] Patient Education 2020 [employer] 07/03/2022 13:32:36 Calorie Counting for Weight Loss [...] 09/15/2006 Document Revised: 06/04/2019 Document Reviewed: 08/15/2017 [employer] Patient Education 2020 [employer]. Follow Up Care 06/26/2021 10:22:59 With:EDGAR DANIELLE PA-C, URL Address: [address] [place] [address] When: Unknown [facility] 07-03-2022 Evaluation + Plan note Diagnostic Tests PendingPSA Total 07/03/22 [facility] 01-17-2022 Evaluation + Plan note Extrac jing from: Title:ANES POSTOP MAC/GEN NOTE Author:Fabián Robertson JR Date:01/17/22 Plan Transfer/ Discharge: Patient can be discharged from PACU when criteria met. Condition good. Extracted from: Title:ANES PREOP GEN ADULT NOTE Author:Fabián Turcios JR, DO Date:01/17/22 Plan [place] [employer] Anesthesiologists (ASA) physical status classification: Class III. Anesthetic Preoperative Plan Anesthesia: General. . Anesthetic plan, risks, benefits, and alternatives discussed with the patient and/or family. Pt. and/or family present and agree to proceed as planned.. Discussed the importance of abstaining from tobacco products, and offered counseling if desired. Future Appointments Appointment Date:2022 10:45:00 AM Scheduled Provider:David Pacheco Jr., MD Location:[facility] Appointment Type:URO [facility] Hospital Discharge instructions Patient Education 01/17/2022 [...] Up Care 12/31/2021 11:37:23 With:EDGAR DANIELLE Address: [address] [place] [address] [facility] (1) When:6 weeks Comments:KUB x-ray with next visit. [facility] Hospital Discharge instructions Patient Education 12/25/2021 [...] urethra. Follow these instructions at home: Take wxic-iec-xvbfhjt and prescription medicines only as told by [...] 09/15/2006 Document Revised: 08/10/2019 Document Reviewed: 10/20/2017 [employer] Patient Education 2020 [employer]. Follow Up Care 12/24/2021 14:06:11 With:Junior Mccollum MD, David Darling, URO Address: When: Unknown Comments:schedule ESWL [facility] Margie 11-29-2021 NoteHNO ID: [id number] Author: Tracey Eagle MD Service: ? Author Type: Physician Type: Progress Notes Filed: 08/27/2021 10:02 AM Note Text: [facility] Patient: Doris Luis Provider Tracey Eagle MD : 1965 Location: [facility] Date of Service: August 27, 2021 Referring Provider: Delon Caballero MD PCP: Delon Caballero MD NOTE: After obtaining patient's consent, [...] LUCACREA, LUCREACL, LWK, LUSUL in the last [id number] hours. 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 No current facility-administered medications for this visit.[facility] [place] Plan note Future Appointments Appointment Date:2022 10:45:00 AM Scheduled Provider:David Pacheco Jr., MD Location:[facility] Appointment Type:URO Office Visit [facility] evaluation + Plan note Future Appointments Appointment Date:01/17/2022 10:00:00 AM Scheduled Provider: Location:[facility] Appointment Type:Surgery FT Appointment Date:2022 10:45:00 AM Scheduled Provider:David Pacheco Jr., MD Location:[facility] App[facility]ments Appointment Date:08/26/2023 10:00:00 AM Scheduled Provider:EDGAR DANIELLE PA-C Location:[facility] Appointment Type:URO Office Visit [facility] [place] Evaluation + Plan note Future Appointments Appointment Date:09/30/2023 02:30:00 PM Scheduled Provider:EDGAR DANIELLE PA-C Location:[facility] Appointment Type:URO Office Visit [facility] [place] Hospital course Narrative No data available for this section [facility] Hospital Discharge instructions No data available for this section [facility] No data available for this section [facility] Margie Summary Purpose Family History No Family History Records FoundNo Family History Records FoundNo Family History Records FoundNo Family History Records FoundNo Family History Records FoundNo Family History Records Found No data available for this section No data available for this section No data available for this section No data available for this section No [...] section and content) DATE CREATED AUTHOR 01/21/2019 [facility] DATE CREATED AUTHOR AUTHOR'S ORGANIZ ATION 11/06/2021 [facility] DATE CREATED AUTHOR AUTHOR'S ORGANIZ ATION 04/08/2022 [facility] DATE CREATED AUTHOR AUTHOR'S ORGANIZ ATION 02/08/2023 [facility] DATE CREATED AUTHOR AUTHOR'S ORGANIZ ATION 03/09/2023 [facility] DATE CREATED AUTHOR AUTHOR'S ORGANIZ ATION 08/16/2023 [facility] DATE CREATED AUTHOR AUTHOR'S ORGANIZ ATION 02/11/[address] 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 [facility]. provides no warranty or guarantee of the accuracy or completeness of information in this document.
[2024-03-18 15:47] LABS: Alanine Aminotransferase 31 U/L (16-63); Albumin Globulin Ratio 0.9; Albumin Level 3.5 g/dL (3.4-5.0); Alkaline Phosphatase 62 U/L (46-116); Anion Gap 14.3; Aspartate Amino Transferase 20 U/L (15-37); BUN Creatinine Ratio 15.5; Bilirubin Total 0.4 mg/dL (0.2-1.0); Calcium 8.8 mg/dL (8.5-10.1); Carbon Dioxide 28.3 mmol/L (21.0-32.0); Chloride 103 mmol/L (98-107); Estimated GFR (African America 56 (>=60); Estimated GFR (Non-African Ame 46 (>=60); Globulin 4.1 g/dL; Glucose 165 mg/dL (74-106); Potassium 5.6 mmol/L (3.5-5.1); Sodium 140 mmol/L (136-145); Total Protein 7.6 g/dL (6.4-8.2)
== END 2024-03-18 14:30 | disposition home or self-care (01) ==
LOC: LAB 14:31
PROVIDERS: PCP Family Medicine; Visit Provider Family Medicine
DX: R94.4 Abnormal results of kidney function studies (principal)
CPT/HCPCS: 36415; 80053

== ENCOUNTER 2024-05-19 15:21 | Outpatient (OUT) | payer OTHER, SELFPAY ==
[2024-05-19 16:03] LABS: INR 3.66; Prothrombin Time 34.1 sec (9.0-11.6)
== END 2024-05-19 15:22 | disposition home or self-care (01) ==
LOC: LAB 15:22
PROVIDERS: PCP Family Medicine; Visit Provider Family Medicine
DX: I82.91 Chronic embolism and thrombosis of unspecified vein (principal)
CPT/HCPCS: 36415; 85610

== ENCOUNTER 2024-08-03 12:31 | Outpatient (OUT) | payer OTHER, SELFPAY ==
--- OUTSIDE RECORDS SUMMARY | 2024-08-03 12:35 | XMS_ITS | CCD ---
Author Organization [facility] Care Team Providers Care Sizing Sprayer Name Role Phone EFREM MATSON Admitting Unavailable EFREM MATSON Attending Unavailable DELON CABALLERO Primary Care Unavailable Delon Caballero Primary Care Physician [phone] DAGOBERTO CORMIER Admitting Unavailable DAGOBERTO CORMIER Attending [...] Unavailable HOY ., DR LIU Consulting Unavailable [place], DR EFREM Ventura Consulting Unavailable HOY ., [...] DR LIU Consulting Unavailable HOY ., DR LUI Admitting Unavailable HOY ., DR LIU Attending [...] Care Unavailable ELIJAH, EDGAR Consulting Unavailable ELIJAH, EGDAR Admitting Unavailable ELIJAH, EDGAR Attending Unavailable HOY ., DR LIU Primary Care Unavailable [facility], DR MASON Braun Consulting Unavailable ELIJAH, EDGAR [...] Hallucinations (finding), Migraine (disorder) [facility] (14 sources) Penicillins; Translations: [penicillins] Drug allergy 4 Weal (disorder) [facility] (10 sources) Sulfonamides (Antibiotic); Translations: [sulfa drugs] Drug allergy Weal (disorder) [facility] (1 source) Acetaminophen / HYDROcodone Drug Allergy [facility] (2 sources) Sulfonamides (Antibiotic) Drug allergy (disorder) 5 [facility] (1 source) Penicillin; Translations: [penicillin] Drug Allergy [facility] Repository Medications Current Medications Medication Drug [...] day(s), # 6 tab(s), Refills(s) 0, Pharmacy: [address], 178, cm, 01/11/22 13:03:00 EDT, Height/Length [...] for 30 day(s), 60 tab(s), Refill(s) 6, [employer] [facility], 178, cm, 12/30/23 11:22:00 EDT, [...] Ordered Start: 08-29-2020 take 1 capsule by [facility] once daily venlafaxine 75 mg Cap-ER 75 mg = 1 cap(s), Oral, Daily, take 1 capsule by mouth once daily, Anxiety Start Date: 08/29/20 Status: Ordered take 1 tablet by [facility] twice daily venlafaxine (EFFEXOR) 75 mg [...] Coronary arteriosclerosis; Translations: [Atherosclerotic heart disease of [place] coronary artery without angina pectoris] Onset: 2 [...] sources) Long-term current use of anticoagulant; Translations: [longterm (current) use of 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] Onset: 2 Episodic [...] Onset: 09-24-2022 Episodic Other aftercare (1 source) longterm (current) use of 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; Translations: [COMMUNICATION COORDINATOR CURRNT USE ANTICOAGULANTS] Onset: 09-24-2022 Episodic Other lower respiratory disease (3 sources) Other forms of dyspnea; Translations: [OTHER FORMS OF DYSPNEA] Onset: 01-31-2023 Episodic Results Test Name Value Interpretation Reference Range Facility Ambulatory Visit Summaryon 0 02-10-2024 Ambulatory Visit Summary DORIS LUIS :1965 Visit Date:02/10/2024 Ambulatory Visit Instructions Your [...] Cardiac catheterization, Cataract extraction, Excision of lipoma, [place] filter, History of lumbar spine surgery, Meniscal [...] for choosing us for your care. Normal [facility] Formson 12-31-2023 Forms [id number] .00TIFF Normal [facility] CHEMISTRYOrdered By: SYSTEM SYSTEM on 12-30-2023 Prostate specific Ag [Mass/Vol] 1.7 ng/mL Normal 0.1 - 3.5 ng/mL Remisol Chem Comment on above: Interpretive Data: T he concentration of PSA determined by different manufacturers can vary due to differences in assay methods and reagent specificity. Values obtained from different assay methods cannot be used interchangeably. The methodology used for this result was chemiluminescence using [employer]'s Access Hybritech PSA reagent. PSA Screen, Totalon 12-30-19 Prostate specific Ag [Mass/Vol] 1.7 ng/mL Normal 0.1-3.5 [facility] Comment on above: Result Comment: The concentration of PSA determined by different manufacturers can vary due to differences in assay methods and reagent specificity. Values obtained from different assay methods cannot be used interchangeably. The methodology used for this result was chemiluminescence using [employer]'s Access Hybritech PSA reagent. Performed By: #### 1 [id number] ####[facility] [address] [place] [address] Patient Educationon 12-30-19 Patient Education Nephrology Dietary [...] Spinach (cooked), rhubarb, beets, sweet potatoes, and [place] chard. ? Peanuts. ? Potato chips, greek fries, and baked potatoes with skin on. ? Nuts and nut products. ? Chocolate. ? If you regularly take a diuretic medicine, make sure to eat at least 1 or 2 servings of fruits or vegetables that are high in potassium each day. These include: ? Avocado. ? Banana. ? [place], prune, carrot, or tomato juice. ? Baked [...] fish oil, or vitamin B6. ? Take jrwy-wmo-agchrfg and prescription medicines only as told by your health care provider. These include supplements. What foods sh (more content not included)... Normal [facility] Urology Office/Clinic Noteon 12-30-2023 Urology Office/Clinic Note Chief Complaint 6 mo f/u w/ Renal US HPI Staff Former DLS pt 6m MAKENNA & PSA (pt RS'd) DX: Kidney Stone, BPH & Renal Cyst *No Urology Meds Last Tx'd for stones in 2021 [place] [place] *Uric Acid KUB 03/12/23 Metabolic Work Up [...] resolved when stone passed. [place] [place] *Uric Acid MKAENNA 12/13/23 - 2 mm stone at interpolar [...] Additional Instructions: w/PSA EDGAR DANIELLE PA-C, URL [address] [place] [address] Additional Instructions: XIOMARA England APRN, Elsy Skaggs, [...] Excision of (more content not included)... Normal [facility] Comment on above: Result Comment: Elec tronically Signed By: XIOMARA England APRN, [place] X\.br\Date and Time Signed: 12/30/23 12:27 EDT\.br\Electronically Co-Signed By: EDGAR DANIELLE PA-C RAD - Ultrasound Reporton RAD - Ultrasound Report [id number] .00TIFF Normal [facility] Outside Colonoscopyon 2022 Outside Colonoscopy [id number]#1 .00TIFF [facility] Reminderson 09-18-2023 Reminders - From: Delilah Fink LPN To: GSN - Clinical; Sent: 09/18/2023 12:45:06 EST Show up: 08/18/2033 07:00:00 EST Subject: colonoscopy recall Due Date/Time: 09/17/2033 07:00:00 EST Reminder/Recall Patient due for screening colonoscopy 09/17/2033. [facility] Reminderson 09-12-2023 Reminders - From: Aisha Zelaya [...] pt is scheduled 09/19/23 @ 0900. Normal [facility] Physician Referralon 023 Physician Referral [id number] .00TIFF [facility] Consent for Procedure/Surger yon 09-01-2023 Consent for Procedure/Surgery [id number]# 1.00TIFF [facility] Ambulatory Visit Summaryon 1 10-30-2022 Ambulatory Visit [...] Cardiac catheterization, Cataract extraction, Excision of lipoma, [place] filter, History of lumbar spine surgery, Meniscal repair, Thrombectomy, Tonsillectomy. Discharge Vitals Heart Rate (Peripheral) 72 Respiratory Rate 16 Blood Pressure 126/78 Height 177.8 cm Height 70 in Weight 106.8 kg Weight 234.96 lb BMI 33.78 What to do next Scheduled Follow-Up Appointments Friday 2:30 PM EST With: EDGAR DANIELLE PA-C Where: [facility] Physician Referralon 023 Physician Referral [id number]#1 .00TIFF [facility] Office Visiton 08-14-2023 Follow-up visit [id number] Doris Luis 1965 M Date Provider Department Center 08/14/2023 [facility] DAGOBERTO CARD Margie English Family History Problem Relation Age of Onset Coronary artery disease Mother Coronary artery disease Father Family Status - Relation Status Age at Mother Father Level of Service:[address]14 [place] OFFICE/OUTPATIENT ESTABLISHED LOW MDM 20-29 MIN Normal [facility] Physician Referralon 023 Physician Referral [id number]#1. 00TIFF Normal [facility] Physician Referralon 023 Physician Referral [id number]#1 .00TIFF [facility] Lab Reportson 03-21-2023 Lab Reports [id number]#1 .00CD:127 [facility] Lab Reports [id number]#1. 00CD:127 [facility] RAD - MISCon 03-21-2023 RAD - MISC [id number]#1 .00CD:127 [facility] Lab Reportson 03-18-2023 Lab Reports [id number]#1 .00CD:127 [facility] Lab Reports [id number]#1 .00CD:127 [facility] Ambulatory Visit Summaryon 0 03-12-2023 Ambulatory Visit [...] pyelography (07/06/2014), Hemorrhoidectomy (2009), Excision of lipoma, [place] filter, History of lumbar spine surgery, Meniscal repair, Tonsillectomy. Discharge Vitals Heart Rate (Peripheral) 72 Respiratory Rate 16 Blood Pressure 126/78 Height 177.8 cm Height 70 in Weight 105 kg Weight 231 lb BMI 33.21 What to do next Scheduled Follow-Up Appointments Friday 10:00 AM EST With: EDGAR DANIELLE PA-C Where: [facility] Historical Records Officeon 03-10-2023 Historical Records Office [id number] .00CD:127 [facility] Coding Summaryon 02-28-2023 Coding Summary HTMLBase 64 NaapijtfSAi7hZf+PGhlY WQ+TM2FVNOdF47rjXSaqW 0kA0VOQAfLWuffTGHKIRm KEeXjlsViNH5bnWNnAIAq IC8+WU6bWGYaKanbtBZpr 6E7tRX4E12slg0eMXodmI Y1DFKvGgSmurjcl1dxgDo 6IDcuNmluOyBt YGRazR22FIZ5cR85Ly16g SAbaLKoa3mlhVa5LjQdQB ShPFQ4rLacGEpri8ZaISX uC47gmEMgs0C8 RGCaxPvzhVDqOvYjvEW5i U6wNEoajeooj0vfubpbZd z7ah40lSJxe5L9gCH7E5B osrE8WKYjtTIs EjxqxNBVlV1etzakr6fqz zijOyTwEYVsMFy3MVq6YC AuoTzoRoCyIR01IIJ8FSK xphMzZ0RzLITo vRuoTbE5u2A2Kl4IX3RRZ jgxD5NHHEGBBUisxLN+PC 11ov22S0UeEfzbAaj0ZDX kLQB7hNT9tF7c AJPqDOpng4D4yYP0X8Icb xTutz8rr4csVQIaPWgwC4 8zeKBin1D2SZKeyIV7HUH lcLuvDaWgpA85 Oyc+TGFotZjcb7ZyOlwol 3rop8rfoTz3FzcdIOPlwm IazOprNJF0l0LcHp9tFIM ibMJ2uIF6xM2y NkFhZaN5DHtyQ169DrJwf RIyWgidE52yO0RmdMD+PH MtUjq7ZEKacTmlGT4aQ9X hZGRpbmctbGVm bIlbQX8qVHJtoyzyJSOaq S7zKJVbS8e6DqXkIuC3MN dsP6ZxAGPsicvpTu75eK1 fNuFfGmF9YQox Q6NnbxI0KFMxzTQcFAunZ GP4A90dl4R3IGBwLUFkNQ Q4qRY6eB7uhZpuavlpjSE mdDsgdmVydGlj PAyxNVdnI377KRAlrVfnW kNvZGluZyBEYXRlOiAgMD YvMDIvMjAyMzwvdGQ+PHR uGNV6lLcdWHJm eDRgVCudOa3neWwoeDloV K7mAEClgmnfUXShxP7nRY WanYIlgCqnIE2lWGGoikg ub617OcJfQFL3 MLHygCWlH1AgbS9uWrCwT TFqWAAnG1HoaKYlEYksG1 66ADfaEoJ2PRRzpgZrW3K sLWFsaWduOiB0 g6F9Ol6Sc0VegkfbP8Dbc CBmUwFnBxcaGNt9S4HtWo wvdHI+QL31GUXvKT27PLr 2IMK6zOrdHEwm HCTwV1TbxZ6rSvEvBSIoW GRkOyc+PHRhYmxlIHdpZH RoPScxMDAlJyBzdHlsZT0 pDk5rEDSyBVUk vSxozNOtWoSxp9beCBLoH GjvVB7bnVyqJ6IpkNZ9QP Nwu7y3Hc17M18sB9UriJT +VRRnkUJ1fQI4 dL2lKhYwOkF8TDveI211I iQplALpZygvc2oxl7cefS f1RwM7YOUqdnVmxWtpYWN 4s2GmTy14L38m IHdpZHRoPSIxNSUiIHZhb Qqjby6keT0kOk2+PGNvbC B4bSY0pB2qRdRbCtG2UYs bZ203ZlXdwMLi Iaivq0ewl3pqfVa3UkJuZ FYuioBbrJazJSF5u1ByOm 91Y2EydOcsq1FrUdo7fq6 4dITnn0W5wMX8 W5XzSIDsdbgilZQufYthS I9pDOXuheogKGEzzB7gNR NbD2p9OlGfAlI3VYgrY3N mauC5BGAwbSXj ESUroXOGvP7fvhlwu1fbn uhgCvXpCEOcUMn0ACi4FN GmbMlfWtYjLHW5FcE3ZET 3qYPbqT3xaZrx gupwlZ4qZae+AMY9qEEkz SUPWZ4rWqxlpFQ+PHRkIH L2mXsyQFgcFMZspY7wTZA tB1e4GwCpEeB4 RLbcU3BgnsX7FXQbdVJkO FRcdGCXrW2pwzrtl6pstb laHbVmIATdJAa4QDe1FRR saWduOiBsZWZ0 WhR9RJR0gPBmfW0uxWsvg zpprW1qMpf+QmlydGggRG I0ARg5H4AxOaf7JMYajUv aCP6bxJOlOYdj Yq1anPlkyDowZP9rOICsy mwbf320GtPzt1rtFWOruW UnYZdaGET9F97ak4M9OAY cJNPoOWU6mVG6 yO4yhBovgcrnlWVfvPxps mBkwSskVNktEKqiT295DU PuzHyiXlMgBKq9S0XvJhr 0SFEklRnvSF3x wYPcQUnuEk8vhIamzQdmO F3dLKDuzhoxc361QpIaj2 cvZQYwcGEnNTlnSIG6M66 ss3W1ITOwGYOo VXF7fDJ3nG6arIlgurvrm GVmdDsgdmVydGljYWwtYW irT162USUrtBywJmJrfIy 7C6RuXwa0XSXq rRfwHE0crTZvKDtfNy6sa AdpxTesCV7sNAClkzols1 71FnSws9liEGRgwTUwEKw kTSG8Y89ig6H2 NJJrUICjEFR3lBJ6kQ9xj GlnbjogbGVmdDsgdmVydG zxDAtsHLtpF515KHMvfNp nPlBhdGllbnQg JJntOBm8V3VgNaqhcBJ+P Y61PUDaEZ14uWUtlAFwn7 pkdMj3NmMpMVBdBLF4dHq bOFzgm6QcTDYf G81dlTOcj9D4AHNxtFson XPpZhRpcYO9kO5zHUhofu olm8nsmqobOkwlo7otlo2 1dZ82M36xBGhu ZHRoPSIzMCUiIHZhbGlnb l8ioI4bFx8+CWOclJK2lY G6eY8sKBHpIhI1BSabP78 9InRvcCIvPjxj y4ixy5seuQr1GiQ3GCIlq hXwfUxsOXC5c5GeWt80P9 9sIHdpZHRoPSIyMCUiIHZ uzLxxws9kgA1a Ii8+CXDsxXN4yAY0rN9aA lWpXnE0RCnqR436JhXdbC ObWznrM27eA0DfoEK+PHR jBrm5IZBydIai BX1lkWKfEPhbPu9oVZX7S rCmLuZhNEosC9TqELDjjx krsrkwwAO8KFFkTBJaeS9 1Zp8nuNyySDYb lLWWjC8yszrsq4lqkpkoJ rFqPVKpYVr7JMi1EVImkF bqXkYtQSR3DfB2PRT0hRE dzR3xwYdhyaxr dK9aK1SwPVKxvrmtEv38o H8cVvHeMxP6JDbnWyw+SE CZO5YOBHTTITPFOHTKUPY VM1IXACseuMF+ KYNtMVV4zXwzZTxxSMExw L6fSOAiO2x6PxKjNdE8EK dfU4GsYQYkgslxXm24rZ6 zRnLoObQ8PDeu E5ObpfX2LRNczFGjAAnuM XD9C67ca1R5LEApLJRfZQ L8bGL4kE5wmEgwgkoflCB mdDsgdmVydGlj HYhoMVqwE287AEEjmYbtO mL3TbY8QsO1VkN2C5YlGc l9KKLtzBylTI3kcRHfBHt dHq5vlRlilQxh KR8vIOZdztmgFBRgfP7bR HSkbWZzgEviJU6uHCAdnr pep023KeToPZJ1AWOhyCP sZ6YjdY8qQkVn VYZbKRZhW1PhnRVmTYqvU 164XUpkYwR4OBNlkpCmC4 BlKVAovJefLuQ0m5V9Im4 1OSBZZWFyczwv dGQ+YFCeBPP3pOklQNhyP MZmaJ7oBVSaW0b9PiMlVf G9KUaaI7InGVIxzeptGe3 4oX3sTtJfVzZ2 YRrpI4AopqS0UAEnoMFtJ PvtRGA3A15sv6O8JDNlYU OhJOF9wBX3xM1ncIankyv gbGVmdDsgdmVy rVxgSLuaXZzwR855KKGcd BveJg5ZXDG9Y6UzHyc4ON ZlnJcqFZ6sbFKiHOyxIs3 pnTtvtQmgKY2s DGOiyorzWXOxjF6aHSFkk NIseRaaBU1rNQKjwvpep1 04UxFzKRH4NYKspAYoZ0V miA6wZwNgRIRm OPVuK3FxxCYxDSmhO263M MtjErC9XYUrfdBnV3TfHA IdfRokSjC9i6Z0Zy1WIGu vdGQ+DC78iy55 V7CoBwxmXhr9YWZaJAK8k GO0cJ8pAKZjTZike4X3tB M9U8HfwhDimp2qd2xvPNE dHDxcB61czVWk u7Z8BRBbvDK5MMDikCoaD bFntE12Jve+PGNvbGdyb3 AmWgrlj0qge8ibfNv2SeO wJSIgdmFsaWdu SNQ5a0FuQe76G53sSCgeK HRoPSIzMCUiIHZhbGlnbj 6upO4qKy1+GIUeeNQ5tKZ 6kH8oRfXyIwO2 FFdyE473WyFqfZIgDunqo 1kki1cvgZk7SlUdWSFbsm CfgMqbUVP3u9ZkJy49V4I umMbao0WdFps6 xu39yVLba5T3dYW7E4QnM LYnmigmzFPvsQkjCI2oIH TdeohvKVXfeB0tNYFtT5l 8UxNnZjR9FXhc Y5NqtwS4XMBhmSNgYLBtz UNQwM2qwwnzw3hjxomaLd RdSUGhPOx3RZk1WVYiuDa mNnVnQXS5TrM4 ZDU8rXVhxQ9gsOqtrjmlg G9wOyc+BHf7i5ipyGQzMU 7miFB3ZU66EY21tWKvr0F 6tTR9Q1ZzQGLi ukuaxajtmAP8SDZlVSMmi M69Ye1oxHjxWe3sCIEbRE O9AOZrvRXcW5RaoP2iNvN sPDKxLWEdN5Eu aDPgNMlbE569KKtvXvN0E GHayuMwV2GbROIntHojZr M2e3O6Nm0NWQ55JG71AC6 6uHTmw5W6pRD7 K2OnHVPorwjzglziaUP7K UAfLCGesH81Wi9gnXnaLi 3xHSTjBHV5BZTgrSCjN9O syJ2kFyWyRVEg OUXhG8VtgSAmOPfrR923N ExaGgE7EPYbbxDdA6YcUH TsaIkhFrB4k8S1Yg6ULf1 2ZN38XL64qBBl u8W0zIR1Z6UlWXBkwsqqh bpfqLM3UZRfPPSvmN81Ud 2gxVsfTx1pBEDdWQZ0XWK eaPAiI8DncP6d KsXzXASlVVIoW4JirNJqK HtvH543VBzpRnF3JMBslx DqE9RuIHGxnUybDaT2m6M 6Wi9LNBivczc7 B0EbRkticYS+OM84BRTbY X50lDRjkKUee9vrwHr1Dq AaAJXhWBS8gTwgEIyri6Z bSTAaY06pfGCd c2U (more content not included)... Normal [facility] Calculus Analysison 02-27-20 23 Color (Stone) [place] Invalid Interpretation Code [facility] Comment on above: Performed By: #### 1 [id number] ####[facility] [address] [place] [address] Composition Comment Invalid Interpretation Code [facility] Comment on above: Result Comment: Perc entage (Represents the % composition) Performed By: #### 1 [id number] ####[facility] [address] [place] [address] Disclaimer: Comment Invalid Interpretation Code [facility] Comment on above: Result Comment: This test was developed and its performance characteristics determined by [facility]. It has not been cleared or approved by the Food and Drug Administration. Performed at: [facility] Stone Analysis [address] [place] [address] Dr [place], [place] [id number] PhD Sahra Helton Performed By: #### 1 [id number] ####[facility] [address] [place] [address] Laboratory comment Lazaro (Report) Comment Invalid Interpretation Code [facility] Comment on above: Result Comment: Trav nguyen questions regarding Calculi Analysis contact [facility] at: [phone]. Performed By: #### 1 [id number] ####[facility] [address] [place] [address] Please Note: Comment Invalid Interpretation Code [facility] Comment on above: Result Comment: Calc cheikh report will follow via computer, mail or cloth weigher delivery. Performed By: #### 1 [id number] ####[facility] [address] [place] [address] Size (Stone) [Entitic vol] 3x5 Invalid Interpretation Code [facility] Comment on above: Result Comment: Sing le piece received. Performed By: #### 1 [id number] ####[facility] [address] [place] [address] Specimen source subject Nom Comment Invalid Interpretation Code [facility] Comment on above: Result Comment: Not provided Performed By: #### 1 [id number] ####[facility] [address] [place] [address] Stone Photo Comment Invalid Interpretation Code [facility] Comment on above: Result Comment: Ni can will follow under a separate cover Performed By: #### 1 [id number] ####[facility] [address] [place] [address] Urate (Stone) [Mass fraction] 100 % Invalid Interpretation Code [facility] Comment on above: Performed By: #### 1 [id number] ####[facility] [address] [place] [address] Weight (Stone) 35 mg Invalid Interpretation Code [facility] Comment on above: Performed By: #### 1 [id number] ####[facility] [address] [place] [address] ED Clinical Summaryon 2022 ED Clinical Summary [facility] [address] [place] [address] Clinical Summary PERSON INFORMATION Name: DORIS LUIS Age: 57 Years Sex: MALE : 1965 MRN: Acct#: Visit Reason: Skin problem; FISH HOOK LT THIGH Arrival: 02/26/2023 14:18:24 Discharge: 02/26/2023 15:11:00 LOS: 000 00:53 Check In: 02/26/2023 14:18:24 Checkout: 02/26/2023 15:11:00 Address: [address] [place] [address] PCP: DELON CABALLERO PROVIDER INFORMATION Provider Role Assigned Unassigned ALFIE SLAUGHTER ED PA 02/26/2023 14:20:09 Ivan Pringle [employer] Nurse 02/26/2023 14:20:24 Asya Luther [employer] Nurse 02/26/2023 14:30:49 VITALS INFORMATION Vital Sign [...] distress: No -Vitals: reviewed. SKIN: -Gross abnormalities: [place] appreciated in the left medial lower thigh just above the knee NECK: -Supple (ynve-zr-ztuwg): non-tender. CARD: -Rate and rhythm: Regular RESP: [...] Fish hook injury of left lower leg ([id number]-[id number] S89.92XA). Orders Orders Patient Care: Wound Care [...] Follow-Up: With: Address: When: DELON CABALLERO [address] [facility], [address] [place], [place] [id number] Business (1) Within 3 to 5 days DIAGNOSIS: Fish hook injury of left lower leg Patient Understands: Yes - Patient/family/caregi josee verbalizes understanding of instructions given Comment: [facility] ED Note - Physicianon 2022 ED Note [...] distress: No -Vitals: reviewed. SKIN: -Gross abnormalities: [place] appreciated in the left medial lower thigh just above the knee NECK: -Supple (xbur-lo-wsrle): non-tender. CARD: -Rate and rhythm: Regular RESP: [...] Fish hook injury of left lower leg ([id number] S89.92XA). Orders Orders Patient Care: Wound Care [...] [Verified on: 02/26/2023 14:57 EDT] ALFIE SLAUGHTER [facility] ED Patient Summaryon 023 ED Patient Summary [facility] ? Urgent Care [address] [place] [address] PATIENT DISCHARGE INSTRUCTIONS Patient Information Name: DORIS LUIS Age: 57 Years Date of : 1965 Reason For Visit: Skin problem; FISH HOOK LT THIGH Arrival Time: 02/26/2023 14:18:24 Primary Care Physician: DELON CABALLERO Attending Physician: ALFIE SLAUGHTER Comment: Patient Education With: Address: When: DELON CABALLERO [address] [place] [address], [facility] [place] [address] Business (1) Within 3 to [...] at home: Medicines ? Take or apply eroa-ube-egmyxik and prescription medicines only as told by [...] and water are not available, use hand commutator presser. ? Change your dressing as told by [...] washing o (more content not included)... Normal [facility] Recordon 02-26- 023 Urgent Care Record [facility] ? Urgent Care [address] [place] [address] PATIENT DISCHARGE INSTRUCTIONS Patient Information Name: DORIS LUIS Age: 57 Years Date of : 1965 Reason For Visit: Skin problem; FISH HOOK LT THIGH Arrival Time: 02/26/2023 14:18:24 Primary Care Physician: DELON CABALLERO Attending Physician: ALFIE SLAUGHTER Comment: Visit Diagnosis: Diagnoses This Visit Fish hook injury of left lower leg (S89.92XA) Skin problem ([id number]) If you received any narcotics, sedation, or [...] legal documents With: Address: When: DELON CABALLERO [address] [place] [address] [place] [address] Business () Within 3 to 5 days Medication Information: The exam and treatment you received today in the [facility] were for an urgent problem and are not intended as complete care. It is important for you to follow up with a doctor, nurse practitioner, or physician?s junior administrative assistant for ongoing care. If your symptoms [...] so we can reach you if necessary. [facility] has provided you with a complete list of medications post discharge. Please inform your feller machine operator/provider of your visit and for further instruction [...] washing out the (more content not included)... [facility] Historical Records Officeon 02-20-2023 Historical Records Office [id number]:127 [facility] Physician Referralon 023 Physician Referral [id number]:127 [facility] Ambulatory Visit Summaryon 0 02-18-2023 Ambulatory Visit Summary DORIS LUIS :1965 Visit Date:02/18/2023 Ambulatory Visit Instructions Your Diagnosis Kidney stone Prostate cancer screening BPH without obstruction/lower urinary tract symptoms Renal cyst Tests Performed Urnls Dip Stick Auto w/o Microscopy POC 35634 US Renal -- Results Pending -- Please [...] Cystoscopy and retrograde pyelography (07/06/2014), Back care, [place] filter, Hemorrhoidectomy, History of knee surgery, Tonsillectomy. Discharge Vitals Heart Rate (Peripheral) 68 Respiratory Rate 16 Blood Pressure 130/72 Height 178 cm Height 70 in Weight 106 kg Weight 233.2 lb BMI 33.46 What to do next Scheduled Follow-Up Appointments Friday 10:00 AM EST With: EDGAR DANIELLE PA-C Where: [facility] Patient Educationon 02-19-20 23 Patient Education Urology [...] these instructions at home: Medicines ? Take [id number]-[id number] and prescription medicines only as told by [...] provider. Document Revised: 05/20/2022 Document Reviewed: 05/20/2022 [employer] Patient Education ? 2022 [employer]. [facility] Urology Office/Clinic Noteon 02-18-2023 Urology Office/Clinic Note [...] E&M of Est. Patient Moderate 30-39 Min 65073 PSA Total Urnls Dip Stick Auto w/o Microscopy POC 07380 US Renal 2. Prostate cancer screening (Z12.5: Encounter for screening for malignant neoplasm of prostate) PSA 07/03/22 - 1.36 will need repeat this fall. order placed. No additional PSA in [employer] system (gets labs annually for PCP but doesn't look like this was included). Ordered: E&M of Est. Patient Moderate 30-39 Min 67972 PSA Total 3. BPH without obstruction/lower urinary tract symptoms (N40.0: Benign prostatic hyperplasia without lower urinary tract symptoms) Pt is currently taking no bladder/prostate medication and is highly satisfied with overall symptom control. No indication for treatment at this time. Continue to monitor. Ordered: E&M of Est. Patient Moderate 30-39 Min 19152 PSA Total 4. Renal cyst (N28.1: Cyst of kidney, acquired) Pt's Renal US shows bilat simple cysts, largest 6cm on right. Ordered: E&M of Est. Patient Moderate 30-39 Min 76453 PSA Total f/u 6 mos w MAKENNA and PSA prior Follow-up With When Contact Information ELIJAH ALLEN, EDGAR Paniagua, URL Within 6 months [address] [place] [address] [facility] (1) Additional Instructions: Patient Education Kidney Stones, [id number] Problem List/Past Medical History Ongoing Anticoagulated Anxiety [...] Cystoscopy and retrograde pyelography (07/06/2014), Back care, [place] filter, Hemorrhoidectomy, History of knee surgery, Tonsillectomy. [...] 1 cap(s), (more content not included)... Normal [facility] Comment on above: Result Comment: Elec tronically Signed By: ELIJAH ALLEN, EDGAR Paniagua\.br\Date and Time Signed: 02/18/23 15:31 EDT CBC AUTO DIFFon 01-31-2023 BASO # 0.1 103/ul Normal 0.0-0.1 [facility] Comment on above: Performed By: #### P T #### [facility] [address] [place] [address] Dr. Curly Connell Basophils/100 WBC (Bld) 0.9 % Normal 0.2-2.0 [facility] Comment on above: Performed By: #### P T #### [facility] [address] [address] [address] Curly Connell EO # 0.1 103/ul Normal 0.0-0.7 [facility] Comment on above: Performed By: #### P T #### [facility] [address] [address] [address] Curly Connell Eosinophils/100 WBC (Bld) 1.2 % Normal 0.9-7.0 [facility] Comment on above: Performed By: #### P T #### [facility] [address] [address] [address] Curly Connell Erythrocyte distribution width (RBC) [Ratio] 19.1 % Critically high 11.0-15.0 [facility] Comment on above: Performed By: #### P T #### [facility] [address] [address] [address] Curly Connell Hematocrit (Bld) [Volume fraction] 42.3 % Normal 42.0-54.0 [facility] Comment on above: Performed By: #### P T #### [facility] [address] [place] [address] Dr. Curly Connell Hemoglobin (Bld) [Mass/Vol] 12.1 g/dL Critically low 14.0-18.0 [facility] Comment on above: Performed By: #### P T #### [facility] [address] [place] [address] Dr. Curly Connell IG # 0.02 10e3/ul Normal 0.00-0.03 [facility] Comment on above: Performed By: #### P T #### [facility] [address] [place] [address] Dr. Curly Connell IG % 0.2 % Normal 0.0-0.5 [facility] Comment on above: Performed By: #### P T #### [facility] [address] [place] [address] Dr. Curly Connell LYMPH # 2.2 103/ul Normal 1.2-3.8 [facility] Comment on above: Performed By: #### P T #### [facility] [address] [place] [address] Dr. Curly Connell Lymphocytes/100 WBC (Bld) 24.3 % Normal 20.5-60.0 [facility] Comment on above: Performed By: #### P T #### [facility] [address] [place] [address] Dr. Curly Connell MANUAL DIFF REQ NO Normal [facility] Comment on above: Performed By: #### P T #### [facility] [address] [place] [address] Dr. Curly Connell MCH (RBC) [Entitic mass] 21.1 pg Critically low 25.9-34.0 [facility] Comment on above: Performed By: #### P T #### [facility] [address] [place] [address] Dr. Curly Connell MCHC (RBC) [Mass/Vol] 28.6 g/dL Critically low 29.9-35.2 [facility] Comment on above: Performed By: #### P T #### [facility] [address] [place] [address] Dr. Curly Connell MCV (RBC) [Entitic vol] 73.8 fL Critically low 80.0-94.0 [facility] Comment on above: Performed By: #### P T #### [facility] [address] [place] [address] Dr. Curly Connell MONO # 0.8 103/ul Normal 0.3-0.8 [facility] Comment on above: Performed By: #### P T #### [facility] [address] [place] [address] Dr. Curly Connell Monocytes/100 WBC (Bld) 9.2 % Normal 1.7-12.0 [facility] Comment on above: Performed By: #### P T #### [facility] [address] [place] [address] Dr. Curly Connell NEUT # 5.9 103/ul Normal 1.4-6.5 [facility] Comment on above: Performed By: #### P T #### [facility] [address] [place] [address] Dr. Curly Connell Neutrophils/100 WBC (Bld) 64.2 % Normal 43.0-75.0 [facility] Comment on above: Performed By: #### P T #### [facility] [address] [place] [address] Dr. Curly Connell Platelet mean volume (Bld) [Entitic vol] 10.0 fL Normal 9.5-13.5 [facility] Comment on above: Performed By: #### P T #### [facility] [address] [place] [address] Dr. Curly Connell PLT 340 103/ul Normal 150-450 [facility] Comment on above: Performed By: #### P T #### [facility] [address] [place] [address] Dr. Curly Connell RBC 5.73 106/ul Normal 4.70-6.10 [facility] Comment on above: Performed By: #### P T #### [facility] [address] [place] [address] Dr. Curly Connell WBC 9.1 103/ul Normal 4.0-11.0 [facility] Comment on above: Performed By: #### P T #### [facility] [address] [address] [address] Curly Connell GLYCOHEMOGLOBIN A1Con 2022 ADA RECOMMENDATION SEE BELOW Normal [facility] Comment on above: Result Comment: ADA RECOMMENDED LIMIT 4.0 - 6.0 ADA THERAPEUTIC TARGET < 7.0 ACTION SUGGESTED > 7.0 Performed By: #### P T #### [facility] [address] [address] [address] Curly Connell Glucose [Mass/Vol] 151 mg/dL Normal [facility] Comment on above: Performed By: #### P T #### [facility] [address] [address] [address] Curly Connell HbA1c (Bld) [Mass fraction] 6.9 % Critically high 4.5-6.2 [facility] Comment on above: Performed By: #### P T #### [facility] [address] [address] [address] Curly Connell LIPID PROFILEon 01-31-2023 CHOL-HDL RATIO NORM SEE BELOW Normal [facility] Comment on above: Result Comment: 3.3 - 4.4 LOW RISK 4.4 - 7.1 AVERAGE RISK 7.1 - 11.0 MODERATE RISK >11.0 HIGH RISK Performed By: #### P T #### [facility] [address] [place] [address] Dr. Curly Connell Cholesterol [Mass/Vol] 149 mg/dL Normal <=200 [facility] Comment on above: Performed By: #### P T #### [facility] [address] [address] [address] Curly Connell Cholesterol in HDL [Mass/Vol] 41 mg/dL Normal 40-60 [facility] Comment on above: Performed By: #### P T #### [facility] [address] [address] [address] Curly Connell Cholesterol in LDL [Mass/Vol] 77.8 mg/dL Normal [facility] Comment on above: Performed By: #### P T #### [facility] [address] [address] [address] Curly Connell Cholesterol.total/Chol esterol in HDL [Mass ratio] 3.6 {ratio} Normal [facility] Comment on above: Performed By: #### P T #### [facility] [address] [address] [address] Curly Connell HDL NORMAL > or = 60 mg/dl - LO W CARDIOVASCULAR RISK <40 mg/dl - HIGH CARDIOVASCULAR RISK Normal [facility] Comment on above: Performed By: #### P T #### [facility] [address] [address] [address] Curly Connell LDL CALC NORMAL SEE BELOW Normal [facility] Comment on above: Result Comment: <100 mg/dl OPTIMAL 100 - 129 mg/dl NEAR OR ABOVE OPTIMAL 130 - 159 mg/dl BORDERLINE HIGH 160 - 189 mg/dl HIGH >190 mg/dl VERY HIGH Performed By: #### P T #### [facility] [address] [address] [address] Curly Connell Triglyceride [Mass/Vol] 151 mg/dL Critically high <=150 [facility] Comment on above: Performed By: #### P T #### [facility] [address] [address] [address] Curly Connell VLDL CALC 30.2 mg/dL Normal [facility] Comment on above: Performed By: #### P T #### [facility] [address] [address] [address] Curly Connell Office Visiton 01-31-2023 Follow-up visit [id number] Doris Luis 1965 M Date Provider Department Center 01/31/2023 SHANIA LYN [facility] Family History Problem Relation Age of Onset Coronary artery disease Mother Coronary artery disease Father Family Status - Relation Status Age at Mother Father Level of Service:43165 [place] OFFICE/OUTPATIENT ESTABLISHED MOD MDM 30-39 MIN Reason for Visit and Comments: Coronary Artery Disease [187] Hypertension [117441] Hyperlipidemia [182] Normal [facility] PROF 14(COMP METB)on 023 Albumin [Mass/Vol] 3.6 g/dL Normal 3.4-5.0 [facility] Comment on above: Performed By: #### P T #### [facility] [address] [place] [address] Dr. Curly Connell Albumin/Globulin [Mass ratio] 0.8 {ratio} Normal [facility] Comment on above: Performed By: #### P T #### [facility] [address] [place] [address] Dr. Curly Connell ALP [Catalytic activity/Vol] 66 U/L Normal 46-116 [facility] Comment on above: Performed By: #### P T #### [facility] [address] [place] [address] Dr. Culry Connell ALT [Catalytic activity/Vol] 21 U/L Normal 16-63 [facility] Comment on above: Performed By: #### P T #### [facility] [address] [place] [address] Dr. Curly Connell Anion gap [Moles/Vol] 9.6 mmol/L Normal [facility] Comment on above: Performed By: #### P T #### [facility] [address] [place] [address] Dr. Curly Connell AST [Catalytic activity/Vol] 15 U/L Normal 15-37 [facility] Comment on above: Performed By: #### P T #### [facility] [address] [place] [address] Dr. Curly Connell Bilirubin [Mass/Vol] 0.4 mg/dL Normal 0.2-1.0 [facility] Comment on above: Performed By: #### P T #### [facility] [address] [place] [address] Dr. Curly Connell Calcium [Mass/Vol] 9.2 mg/dL Normal 8.5-10.1 [facility] Comment on above: Performed By: #### P T #### [facility] [address] [place] [address] Dr. Curly Connell Chloride [Moles/Vol] 106 mmol/L Normal 98-107 [facility] Comment on above: Performed By: #### P T #### [facility] [address] [place] [address] Dr. Curly Connell CO2 [Moles/Vol] 28.2 mmol/L Normal 21.0-32.0 [facility] Comment on above: Performed By: #### P T #### [facility] [address] [place] [address] Dr. Curly Connell Creatinine [Mass/Vol] 1.23 mg/dL Normal 0.70-1.30 [facility] Comment on above: Performed By: #### P T #### [facility] [address] [place] [address] Dr. Curly Connell EGFR-AF SCOTTISH >60 Normal >=60 [facility] Comment on above: Performed By: #### P T #### [facility] [address] [place] [address] Dr. Curly Connell EGFR-NON AF SCOTTISH 60 mL/min/1.73m2 Normal >=60 [facility] Comment on above: Performed By: #### P T #### [facility] [address] [place] [address] Dr. Curly Connell Globulin (S) [Mass/Vol] 4.3 g/dL Normal [facility] Comment on above: Performed By: #### P T #### [facility] [address] [place] [address] Dr. Curly Connell Glucose [Mass/Vol] 123 mg/dL Critically high 74-106 [facility] Comment on above: Performed By: #### P T #### [facility] [address] [place] [address] Dr. Curly Connell Potassium [Moles/Vol] 4.8 mmol/L Normal 3.5-5.1 [facility] Comment on above: Performed By: #### P T #### [facility] [address] [place] [address] Dr. Curly Connell Protein [Mass/Vol] 7.9 g/dL Normal 6.4-8.2 [facility] Comment on above: Performed By: #### P T #### [facility] [address] [address] [address] Curly Connell Sodium [Moles/Vol] 139 mmol/L Normal 136-145 [facility] Comment on above: Performed By: #### P T #### [facility] [address] [address] [address] Curly Connell Urea nitrogen [Mass/Vol] 25.0 mg/dL Critically high 7.0-18.0 [facility] Comment on above: Performed By: #### P T #### [facility] [address] [place] [address] Dr. Curly Connell Urea nitrogen/Creatinine [Mass ratio] 20.3 mg/mg Normal [facility] Comment on above: Performed By: #### P T #### [facility] [address] [place] [address] Dr. Curly Connell PROTIMEon 01-31-2023 INR Coag (PPP) [Relative time] 2.17 {INR} Normal [facility] Comment on above: Performed By: #### P T #### [facility] [address] [place] [address] Dr. Curly Connell INR GUIDELINES SEE BELOW Normal [facility] Comment on above: Result Comment: DAFNE RED INR: 2.0 - 3.0 CONDITIONS NOT LISTED BELOW 2.5 - 3.5 FOR PROSTHETIC HEART VALVE REPLACEMENT 2.5 - 3.5 RECURRENT THROMBOSIS Performed By: #### P T #### [facility] [address] [place] [address] Dr. Curly Connell PT Coag (PPP) [Time] 22.0 s Critically high 9.0-11.6 [facility] Comment on above: Performed By: #### P T #### [facility] [address] [place] [address] Dr. Curly Connell US KIDNEYSon 01-21-2023 US [...] by: EFREM HUMPHREYS Date: 2023-01-21 10:07 Normal [facility] XR KUB 1 VIEWon 01-21-2023 XR KUB [...] EFREM HUMPHREYS Date: 2023-01-21 10:37 Normal [facility] PROTIMEon 12-30-2022 INR Coag (PPP) [Relative time] 2.16 {INR} Normal [facility] Comment on above: Performed By: #### P T #### [facility] [address] [address] [address] Curly Connell INR GUIDELINES SEE BELOW Normal [facility] Comment on above: Result Comment: DAFNE RED INR: 2.0 - 3.0 CONDITIONS NOT LISTED BELOW 2.5 - 3.5 FOR PROSTHETIC HEART VALVE REPLACEMENT 2.5 - 3.5 RECURRENT THROMBOSIS Performed By: #### P T #### [facility] [address] [address] [address] Curly Connell PT Coag (PPP) [Time] 21.9 s Critically high 9.0-11.6 [facility] Comment on above: Performed By: #### P T #### [facility] [address] [place] [address] Dr. Curly Otero 10-14-2022 INR Coag (PPP) [Relative time] 2.36 {INR} Normal [facility] Comment on above: Performed By: #### P T #### [facility] [address] [place] [address] Dr. Curly Connell INR GUIDELINES SEE BELOW Normal [facility] Comment on above: Result Comment: DAFNE RED INR: 2.0 - 3.0 CONDITIONS NOT LISTED BELOW 2.5 - 3.5 FOR PROSTHETIC HEART VALVE REPLACEMENT 2.5 - 3.5 RECURRENT THROMBOSIS Performed By: #### P T #### [facility] [address] [place] [address] Dr. Curly Connell PT Coag (PPP) [Time] 23.8 s Critically high 9.0-11.6 [facility] Comment on above: Performed By: #### P T #### [facility] [address] [place] [address] Dr. Curly Otero 09-16-2022 INR Coag (PPP) [Relative time] 1.93 {INR} Normal [facility] Comment on above: Performed By: #### P T #### [facility] [address] [place] [address] Dr. Curly Connell INR GUIDELINES SEE BELOW Normal [facility] Comment on above: Result Comment: DAFNE RED INR: 2.0 - 3.0 CONDITIONS NOT LISTED BELOW 2.5 - 3.5 FOR PROSTHETIC HEART VALVE REPLACEMENT 2.5 - 3.5 RECURRENT THROMBOSIS Performed By: #### P T #### [facility] [address] [place] [address] Dr. Curly Connell PT Coag (PPP) [Time] 20.0 s Critically high 9.0-11.6 [facility] Comment on above: Performed By: #### P T #### [facility] [address] [place] [address] Dr. Curly Otero 08-07-2022 INR Coag (PPP) [Relative time] 2.68 {INR} Normal [facility] Comment on above: Performed By: #### P T #### [facility] [address] [address] [address] Curly Connell INR GUIDELINES SEE BELOW Normal [facility] Comment on above: Result Comment: DAFNE RED INR: 2.0 - 3.0 CONDITIONS NOT LISTED BELOW 2.5 - 3.5 FOR PROSTHETIC HEART VALVE REPLACEMENT 2.5 - 3.5 RECURRENT THROMBOSIS Performed By: #### P T #### [facility] [address] [address] [address] Curly Connell PT Coag (PPP) [Time] 27.1 s Critically high 9.0-11.6 [facility] Comment on above: Performed By: #### P T #### [facility] [address] [place] [address] ABD/PELVIS WO CONon [...] by: MASON NESBITT Date: 2022-07-17 19:16 Normal [facility] US KIDNEYSon 07-01-2022 US KIDNEYS Ultrasound kidneys, [...] [place] Date: 2022-07-01 09:02 Normal [facility] XR KUB 1 VIEWon 07-01-2022 XR KUB [...] EFREM HUMPHREYS Date: 2022-07-01 16:28 Normal [facility] PROTIMEon 06-25-2022 INR Coag (PPP) [Relative time] 2.60 {INR} Normal [facility] Comment on above: Performed By: #### P T #### [facility] [address] [place] [address] Dr. Curly Connell INR GUIDELINES SEE BELOW Normal [facility] Comment on above: Result Comment: DAFNE RED INR: 2.0 - 3.0 CONDITIONS NOT LISTED BELOW 2.5 - 3.5 FOR PROSTHETIC HEART VALVE REPLACEMENT 2.5 - 3.5 RECURRENT THROMBOSIS Performed By: #### P T #### [facility] [address] [place] [address] Dr. Curly Connell PT Coag (PPP) [Time] 26.4 s Critically high 9.0-11.6 [facility] Comment on above: Performed By: #### P T #### [facility] [address] [place] [address] Dr. Curly Connell PROTIMEon 06-05-2022 INR Coag (PPP) [Relative time] 3.62 {INR} Normal [facility] Comment on above: Performed By: #### P T #### [facility] [address] [place] [address] Dr. Curly Connell INR GUIDELINES SEE BELOW Normal [facility] Comment on above: Result Comment: DFANE RED INR: 2.0 - 3.0 CONDITIONS NOT LISTED BELOW 2.5 - 3.5 FOR PROSTHETIC HEART VALVE REPLACEMENT 2.5 - 3.5 RECURRENT THROMBOSIS Performed By: #### P T #### [facility] [address] [place] [address] Dr. Curly Connell PT Coag (PPP) [Time] 35.9 s Critically high 9.0-11.6 [facility] Comment on above: Performed By: #### P T #### [facility] [address] [place] [address] Dr. Curly Connell PROTIMEon 05-24-2022 INR Coag (PPP) [Relative time] 2.56 {INR} Normal [facility] Comment on above: Performed By: #### P T #### [facility] [address] [address] [address] Curly Connell INR GUIDELINES SEE BELOW Normal [facility] Comment on above: Result Comment: DAFNE RED INR: 2.0 - 3.0 CONDITIONS NOT LISTED BELOW 2.5 - 3.5 FOR PROSTHETIC HEART VALVE REPLACEMENT 2.5 - 3.5 RECURRENT THROMBOSIS Performed By: #### P T #### [facility] [address] [address] [address] Curly Connell PT Coag (PPP) [Time] 26.0 s Critically high 9.0-11.6 [facility] Comment on above: Performed By: #### P T #### [facility] [address] [place] [address] Dr. Curyl Connell PROTIMEon 05-15-2022 INR Coag (PPP) [Relative time] 4.22 {INR} Critically high [facility] Comment on above: Performed By: #### P T #### [facility] [address] [place] [address] Dr. Curly Connell INR GUIDELINES SEE BELOW Normal [facility] Comment on above: Result Comment: DAFNE RED INR: 2.0 - 3.0 CONDITIONS NOT LISTED BELOW 2.5 - 3.5 FOR PROSTHETIC HEART VALVE REPLACEMENT 2.5 - 3.5 RECURRENT THROMBOSIS Performed By: #### P T #### [facility] [address] [place] [address] Dr. Curly Connell PT Coag (PPP) [Time] 41.5 s Critically high 9.0-11.6 [facility] Comment on above: Performed By: #### P T #### [facility] [address] [place] [address] Dr. Curly Connell PROTIMEon 05-01-2022 INR Coag (PPP) [Relative time] 3.81 {INR} Normal [facility] Comment on above: Performed By: #### P T #### [facility] [address] [place] [address] Dr. Curly Connell INR GUIDELINES SEE BELOW Normal [facility] Comment on above: Result Comment: DAFNE RED INR: 2.0 - 3.0 CONDITIONS NOT LISTED BELOW 2.5 - 3.5 FOR PROSTHETIC HEART VALVE REPLACEMENT 2.5 - 3.5 RECURRENT THROMBOSIS Performed By: #### P T #### [facility] [address] [place] [address] Dr. Curly Connell PT Coag (PPP) [Time] 37.7 s Critically high 9.0-11.6 [facility] Comment on above: Performed By: #### P T #### [facility] [address] [place] [address] Dr. Curly Connell PROTIMEon 04-10-2022 INR Coag (PPP) [Relative time] 2.90 {INR} Normal [facility] Comment on above: Performed By: #### P T #### [facility] [address] [place] [address] Dr. Curly Connell INR GUIDELINES SEE BELOW Normal [facility] Comment on above: Result Comment: DAFNE RED INR: 2.0 - 3.0 CONDITIONS NOT LISTED BELOW 2.5 - 3.5 FOR PROSTHETIC HEART VALVE REPLACEMENT 2.5 - 3.5 RECURRENT THROMBOSIS Performed By: #### P T #### [facility] [facility] [address] [place] [address] Dr. Curly Connell PT Coag (PPP) [Time] 29.2 s Critically high 9.0-11.6 [facility] Comment on above: Performed By: #### P T #### [facility] [address] [place] [address] Dr. Curly Connell PROTIMEon 03-28-2022 INR Coag (PPP) [Relative time] 2.52 {INR} Normal [facility] Comment on above: Performed By: #### P T #### [facility] [address] [place] [address] Dr. Curly Connell INR GUIDELINES SEE BELOW Normal [facility] Comment on above: Result Comment: DAFNE RED INR: 2.0 - 3.0 CONDITIONS NOT LISTED BELOW 2.5 - 3.5 FOR PROSTHETIC HEART VALVE REPLACEMENT 2.5 - 3.5 RECURRENT THROMBOSIS Performed By: #### P T #### [facility] [address] [place], [place] [address] Dr. Curly Connell PT Coag (PPP) [Time] 25.6 s Critically high 9.0-11.6 [facility] Comment on above: Performed By: #### P T #### [facility] [address] [place], [place] [address] Dr. Curly Connell PROTIMEon 03-25-2022 INR Coag (PPP) [Relative time] 1.81 {INR} Normal [facility] Comment on above: Performed By: #### P T #### [facility] [address] [place] [address] [address] Curly Connell INR GUIDELINES SEE BELOW Normal [facility] Comment on above: Result Comment: DAFNE RED INR: 2.0 - 3.0 CONDITIONS NOT LISTED BELOW 2.5 - 3.5 FOR PROSTHETIC HEART VALVE REPLACEMENT 2.5 - 3.5 RECURRENT THROMBOSIS Performed By: #### P T #### [facility] [address] [place] [address] [address] Curly Connell PT Coag (PPP) [Time] 18.8 s Critically high 9.0-11.6 [facility] Comment on above: Performed By: #### P T #### [facility] [address] [place] [address] [address] Curly Connell Cardiovascular Lab Reporton 03-21-2022 Cardiovascular Lab Report [facility] #: [id number] Department of Physician: Brian Byrne M.D. Division of Service Date: 03/20/2022 Cardiology Birthdate: 1965 Adult Cardiovascular Room #: [place] [address] Cardiovascular Laboratory Report FINAL IMPRESSIONS: 1. Moderate [...] pain, namely gastrointestinal. 4. Follow up with [facility] Cardiology in the next 1 to [...] the right radial artery was obtained. A 6-Slovenian glide sheath was inserted without difficulty. Bilateral [...] Cormier M.D. Date Trans: 03/21/2022 12:17 A/bouchra [id number] cc: Shania Bhat, MSN, MILL FEEDER-C Department Of Surgery Ms [address] [facility] [address] Delon Caballero M.D. [address], [facility] [address] Normal The [facility] CBC AUTO DIFFon 03-18-2022 BASO # 0.1 103/ul Normal 0.0-0.1 [facility] Comment on above: Performed By: #### C BC #### [facility] [address] [place] [address] Dr. Curly Connell Basophils/100 WBC (Bld) 0.8 % Normal 0.2-2.0 [facility] Comment on above: Performed By: #### C BC #### [facility] [address] [place] [address] Dr. Curly Connell EO # 0.1 103/ul Normal 0.0-0.7 [facility] Comment on above: Performed By: #### C BC #### [facility] [address] [place] [address] [address] Curly Connell Eosinophils/100 WBC (Bld) 1.1 % Normal 0.9-7.0 [facility] Comment on above: Performed By: #### C BC #### [facility] [address] [place] [address] Dr. Curly Connell Erythrocyte distribution width (RBC) [Ratio] 20.7 % Critically high 11.0-15.0 [facility] Comment on above: Performed By: #### C BC #### [facility] [address] [place] [address] Dr. Curly Connell Hematocrit (Bld) [Volume fraction] 45.3 % Normal 42.0-54.0 [facility] Comment on above: Performed By: #### C BC #### [facility] [address] [place] [address] Dr. Curly Connell Hemoglobin (Bld) [Mass/Vol] 13.5 g/dL Critically low 14.0-18.0 [facility] Comment on above: Performed By: #### C BC #### [facility] [address] [place] [address] Dr. Curly Connell IG # 0.02 10e3/ul Normal 0.00-0.03 [facility] Comment on above: Performed By: #### C BC #### [facility] [address] [place] [address] Dr. Curly Connell IG % 0.2 % Normal 0.0-0.5 [facility] Comment on above: Performed By: #### C BC #### [facility] [address] [place] [address] Dr. Curly Connell LYMPH # 1.9 103/ul Normal 1.2-3.8 [facility] Comment on above: Performed By: #### C BC #### [facility] [address] [place] [address] Dr. Curly Connell Lymphocytes/100 WBC (Bld) 23.4 % Normal 20.5-60.0 [facility] Comment on above: Performed By: #### C BC #### [facility] [address] [place] [address] Dr. Curly Connell MANUAL DIFF REQ NO Normal [facility] Comment on above: Performed By: #### C BC #### [facility] [address] [place] [address] Dr. Curly Connell MCH (RBC) [Entitic mass] 23.0 pg Critically low 25.9-34.0 [facility] Comment on above: Performed By: #### C BC #### [facility] [address] [place] [address] [address] Curly Connell MCHC (RBC) [Mass/Vol] 29.8 g/dL Critically low 29.9-35.2 [facility] Comment on above: Performed By: #### C BC #### [facility] [address] [place] [address] [address] Curly Connell MCV (RBC) [Entitic vol] 77.2 fL Critically low 80.0-94.0 [facility] Comment on above: Performed By: #### C BC #### [facility] [address] [place] [address] Dr. Curly Connell MONO # 0.6 103/ul Normal 0.3-0.8 [facility] Comment on above: Performed By: #### C BC #### [facility] [address] [place] [address] Dr. Curly Connell Monocytes/100 WBC (Bld) 7.7 % Normal 1.7-12.0 [facility] Comment on above: Performed By: #### C BC #### [facility] [address] [place] [address] Dr. Curly Connell NEUT # 5.5 103/ul Normal 1.4-6.5 [facility] Comment on above: Performed By: #### C BC #### [facility] [address] [place] [address] Dr. Curly Connell Neutrophils/100 WBC (Bld) 66.8 % Normal 43.0-75.0 [facility] Comment on above: Performed By: #### C BC #### [facility] [address] [place] [address] [address] Curly Connell Platelet mean volume (Bld) [Entitic vol] 9.8 fL Normal 9.5-13.5 [facility] Comment on above: Performed By: #### C BC #### [facility] [address] [place] [address] Dr. Curly Connell PLT 337 103/ul Normal 150-450 [facility] Comment on above: Performed By: #### C BC #### [facility] [address] [place] [address] Dr. Curly Connell RBC 5.87 106/ul Normal 4.70-6.10 [facility] Comment on above: Performed By: #### C BC #### [facility] [address] [place] [address] Dr. Curly Connell WBC 8.3 103/ul Normal 4.0-11.0 [facility] Comment on above: Performed By: #### C BC #### [facility] [address] [place] [address] Dr. Curly Connell Covid-19 PCR (CVDTBH)on 02-28 SARS-CoV-2 (COVID-19) RNA MARCELLO+probe Ql (Unsp spec) Not detected Normal NOT DETECTED [facility] Comment on above: Result Comment: This test is not yet approved or cleared by the [place] FDA. When there are no FDA-approved or cleared tests available, and other criteria are met, FDA can make tests available under an emergency access mechanism called an Emergency Use Authorization (EUA). The EUA for this test is supported by the Batch Blender of Health and Human Service's (HHS's) declaration [...] SARS-CoV-2. Performed By: #### C VDTBH #### [facility] [address] [place] [address] Dr. Curly Connell PROF CHEM 8 (BAS METB)on Anion gap [Moles/Vol] 12.9 mmol/L Normal Th e [facility] Comment on above: Performed By: #### P T #### [facility] [address] [place] [address] [address] Curly Connell Calcium [Mass/Vol] 9.1 mg/dL Normal 8.5-10.1 [facility] Comment on above: Performed By: #### P T #### [facility] [address] [place] [address] [address] Curly Connell Chloride [Moles/Vol] 105 mmol/L Normal 98-107 [facility] Comment on above: Performed By: #### P T #### [facility] [address] [place] [address] [address] Curly Connell CO2 [Moles/Vol] 26.0 mmol/L Normal 21.0-32.0 [facility] Comment on above: Performed By: #### P T #### [facility] [address] [place] [address] Dr. Curly Connell Creatinine [Mass/Vol] 1.34 mg/dL Critically high 0.70-1.30 [facility] Comment on above: Performed By: #### P T #### [facility] [address] [place] [address] [address] Curly Connell EGFR-AF SCOTTISH >60 Normal >=60 [facility] Comment on above: Performed By: #### P T #### [facility] [address] [place] [address] Dr. Curly Connell EGFR-NON AF SCOTTISH 55 mL/min/1.73m2 Critically low >=60 [facility] Comment on above: Performed By: #### P T #### [facility] [address] [place] [address] [address] Curly Connell Glucose [Mass/Vol] 122 mg/dL Critically high 74-106 [facility] Comment on above: Performed By: #### P T #### [facility] [address] [place] [address] [address] Curly Connell Potassium [Moles/Vol] 4.9 mmol/L Normal 3.5-5.1 [facility] Comment on above: Performed By: #### P T #### [facility] [address] [place] [address] [address] Curly Connell Sodium [Moles/Vol] 139 mmol/L Normal 136-145 [facility] Comment on above: Performed By: #### P T #### [facility] [address] [place] [address] Dr. Curly Connell Urea nitrogen [Mass/Vol] 26.0 mg/dL Critically high 7.0-18.0 [facility] Comment on above: Performed By: #### P T #### [facility] [address] [place] [address] [address] Curly Connell Urea nitrogen/Creatinine [Mass ratio] 19.4 mg/mg Normal [facility] Comment on above: Performed By: #### P T #### [facility] [address] [place] [address] Dr. Curly Connell PROTIMEon 03-12-2022 INR Coag (PPP) [Relative time] 2.73 {INR} Normal [facility] Comment on above: Performed By: #### P T #### [facility] [address] [place] [address] Dr. Curly Connell INR GUIDELINES SEE BELOW Normal [facility] Comment on above: Result Comment: DAFNE RED INR: 2.0 - 3.0 CONDITIONS NOT LISTED BELOW 2.5 - 3.5 FOR PROSTHETIC HEART VALVE REPLACEMENT 2.5 - 3.5 RECURRENT THROMBOSIS Performed By: #### P T #### [facility] [address] [place] [address] Dr. Curly Connell PT Coag (PPP) [Time] 27.6 s Critically high 9.0-11.6 [facility] Comment on above: Performed By: #### P T #### [facility] [address] [place] [address] Dr. Curly Connell NM STRESS/REST MULTIon 03-07 NM STRESS/REST MULTI Patient: ODRIS LUISKenneth Exam Date: 03/07/2022 : 1965 Gender:M Ordering : DR DELON CABALLERO . Admission #: [id number] Family : Order #: [id number] CLICK HERE TO VIEW EXAM RADIOLOGY REPORT [...] Humphreys MD on 03/08/2022 at 11:55 Normal [facility] ECHOCARDIO M/2D COMPLETEon 0 02-20-2022 ECHOCARDIO M/2D COMPLETE Patient: DORIS LUIS Exam Date: 02/20/2022 : 1965 Gender:M Ordering : DR DELON CABALLERO . Admission #: [id number] Family : Order #: [id number] CLICK HERE TO VIEW EXAM ECHOCARDIOGRAM REPORT [...] Pepe M.D. on 02/21/2022 at 12:46 Normal [facility] PROTIMEon 02-13-2022 INR Coag (PPP) [Relative time] 2.92 {INR} Normal [facility] Comment on above: Performed By: #### P T #### [facility] [address] [place] [address] Dr. Curly Connell INR GUIDELINES SEE BELOW Normal [facility] Comment on above: Result Comment: DAFNE RED INR: 2.0 - 3.0 CONDITIONS NOT LISTED BELOW 2.5 - 3.5 FOR PROSTHETIC HEART VALVE REPLACEMENT 2.5 - 3.5 RECURRENT THROMBOSIS Performed By: #### P T #### [facility] [address] [place], [place] [address] Dr. Curly Connell PT Coag (PPP) [Time] 29.4 s Critically high 9.0-11.6 [facility] Comment on above: Performed By: #### P T #### [facility] [address] [id number] Curly Connell CHEMISTRYOrdered By: Lab ROP User on 01-17-2022 Glucose [Mass/Vol] 121 mg/dL High 55 - 99 mg/dL [facility] [place] Subsection Comment on above: Result Comment: Asael thompson RN/ POC Device SN [id number] Invalid Interpretation Code [facility] POC Subsection POC User ID [id number] Invalid Interpretation Code [facility] POC Subsection POC Username LADYVARUNSHANIKA MURDOCK Invalid Interpretation Code [facility] [place] Subsection COAGULATIONOrdered By: Efrem Moscoso on 01-17-2022 aPTT Coag (PPP) [Time] 36.2 s Normal 25.1 - 36.5 second(s) [facility] Auto Coag INR Coag (PPP) [Relative time] 1.1 {INR} Invalid Interpretation Code [facility] Auto Coag PT Coag (PPP) [Time] 13.4 s High 10.2 - 12.9 second(s) [facility] Auto Coag CHEMISTRYOrdered By: Efrem soria on 01-11-2022 Anion gap [Moles/Vol] 12 mmol/L Normal 6 - 16 mEq/L [place] [facility] Remisol Calcium [Mass/Vol] 9.1 mg/dL Normal 8.9 [...] Normal 5 - 21 mg/dL [facility] Remisol Urea nitrogen/Creatinine [Mass ratio] 17 mg/mg Normal 10 - 20 [facility] Remisol CHEMISTRYOrdered By: SYSTEM SYSTEM on 01-11-2022 GFR/1.73 sq M.predicted among blacks MDRD (S/P/Bld) [Vol rate/Area] mL/min/1.73 m2 Normal >=59mL/min/1 .73 m2 [facility] Chem S GFR/1.73 sq M.predicted among non-blacks MDRD (S/P/Bld) [Vol rate/Area] mL/min/1.73 m2 Normal >=59mL/min/1 .73 m2 [facility] Chem S COAGULATIONOrdered By: Jomar Cheema on 01-11-2022 aPTT Coag (PPP) [Time] 43.3 s High 25.1 - 36.5 second(s) [facility] Auto Coag INR Coag (PPP) [Relative time] 3.0 {INR} Invalid Interpretation Code [facility] Auto Coag PT Coag (PPP) [Time] 35.7 s High 10.2 - 12.9 second(s) [facility] Auto Coag HEMATOLOGYOrdered By: [...] PM) Normal Negative [facility] UA Auto SS [place].plasma/[place] .RBC (Bld) [Mass ratio] 0-3 /HPF Normal [...] [facility] UA Auto SS Urobilinogen Qn (U) [id number] {Rashida'U}/dL Normal 0.0 - 1.0 EU/dL [facility] UA Auto SS WBC Auto Ql (U) Negative (01/11/22 1:18 PM) Normal Negative [facility] UA Auto SS WBC LM.HPF (Urine sed) [#/Area] 0-5 /HPF Normal 0-5/HPF [facility]A Auto SS OPERATIVE REPORTon 9 OPERATIVE REPORT [address] [id number] OPERATIVE REPORT PATIENT NAME: DORIS LUIS : 1965 MED REC NO: [id number] ROOM: [facility] ACCOUNT NO: [id number] ADMIT DATE: 01/18/2019 PROVIDER: Efrem Matson DATE [...] little over 2 months. He has tried housekeeper child care without benefit and imaging demonstrates the presence [...] small incision in the fascia, and the YABUYRDocDoc tube dilator system was used to dilate [...] evidence of complication. EFREM MATSON [id number] Doc#: [id number] CC: Normal [facility] APTTon 01-18-2019 aPTT Coag time (Bld) 19.5 s Low 20.5-30.5 [facility] Comment on above: Result Comment: No c lot found in specimen, results questionable. TEST CONFIRMED Performed By: #### P T, PTT #### [address] [address] [employer]: Panchito Nguyen MD PTon 01-18-2019 INR Coag RelTime (PPP) 0.9 {INR} Normal [facility] Comment on above: Result Comment: Therapeutic Range: Moderate Anticoagulant Intensity: INR = 2.0-3.0 High Anticoagulant Intensity: INR = 2.5-3.5 No clot found in specimen, results questionable. Performed By: #### P T, PTT #### [address] [id number] [employer]: Panchito Nguyen MD Prothrombin time (PT) Coag time (PPP) 9.5 s Normal 9.0-12.0 [facility] Comment on above: Result Comment: No c lot found in specimen, results questionable. Performed By: #### P T, PTT #### [facility] [address] [place] [address] [employer]: Panchito Nguyen MD Type + Screenon 01-18-2019 Type + Screen Sample Expiration 01/21/2019 Arm Band Number [id number] ABO/Rh(D) A POSITIVE Antibody Screen NEGATIVE Normal [facility] Comment on above: Performed By: #### T YS #### [facility] [employer] [address] [place] [address] [employer]: Panchito Nguyen MD XR LUMBAR SPINE (2-3 [...] Anup Guerrero MD 01/18/19 Final result Normal [facility] Vital Signs Date Time Vital Sign Value Performing Clinician Facility 12-30-2023 11:17-0400 Blood Pressure Location [employer] [facility] 12-30-2023 11:17-040 Body temperature 98.42 [degF] [employer] [facility] 12-30-2023 11:17-0400 Diastolic blood pressure 88 mm[Hg] [employer] [facility] 12-30-2023 11:17-0400 Heart rate 83 /min Elsy Orzech [facility] 12-30-2023 11:17-0400 Respiratory rate 16 /min Elsy Orzech [facility] 12-30-2023 11:17-0400 Systolic blood pressure 122 mm[Hg] Elsy Orzech [facility] 08-29-2023 13:46-0500 Blood Pressure Location [facility] [place] 08-29-2023 13:46-0500 Diastolic blood pressure 78 mm[Hg] [facility] [place] 08-29-2023 13:46-0500 Heart rate 72 /min Jamil N[facility] [place] 08-29-2023 13:46-0500 Respiratory rate 16 /min Jamil N[facility] [place] 08-29-2023 13:46-0500 Systolic blood pressure 126 mm[Hg] [facility] [place] 03-12-2023 14:22-0400 Blood Pressure Location Jamil N[facility] [place] 03-12-2023 14:22-0400 Diastolic blood pressure 78 mm[Hg] [facility] [place] 03-12-2023 14:22-0400 Heart rate 72 /min Jamil N[facility] [place] 03-12-2023 14:22-0400 Respiratory rate 16 /min Jamil N[facility] [place] 03-12-2023 14:22-0400 Systolic blood pressure 126 mm[Hg] Jam[facility] N[facility] [place] 07-03-2022 13:18-0400 Blood Pressure Location EDGAR DANIELLE [facility] 07-03-2022 13:18-0400 Diastolic blood pressure 76 mm[Hg] EDGAR DANIELLE [facility] 07-03-2022 13:18-0400 Heart rate 62 /min EDGAR CORADORY [facility] 07-03-2022 13:18-0400 Systolic blood pressure 128 mm[Hg] EDGAR DANIELLE [facility] 01-17-2022 12:56-0400 Blood Pressure Location David Pacheco Jr. [facility] 01-17-2022 12:56-0400 BP/Pulse Patient Position David Pacheco Jr[facility] 01-17-2022 12:56-0400 Diastolic blood pressure 79 mm[Hg] David Pacheco Jr. [facility] 01-17-2022 12:56-0400 Heart rate 50 /min David Pacheco Jr. [facility] 01-17-2022 12:56-0400 Mean blood pressure 94 mm[Hg] David Pacheco Jr. [facility] 01-17-2022 12:56-0400 SaO2% (BldA) [Mass fraction] 96 % David Pacheco Jr[facility] 01-17-2022 12:56-0400 Systolic blood pressure 125 mm[Hg] David Pacheco Jr. [facility] 01-17-2022 12:56-0400 Body temperature 97.52 [degF] David Pacheco Jr. [facility] 01-17-2022 12:01-0400 Blood Pressure Location David Pacheco Jr[facility] 01-17-2022 12:01-0400 BP/Pulse Patient Position David Pacheco Jr. [facility] 01-17-2022 12:01-0400 Diastolic blood pressure 83 mm[Hg] David Pacheco Jr. [facility] 01-17-2022 12:01-0400 Heart rate 49 /min David Pacheco Jr. [facility] 01-17-2022 12:01-0400 Mean blood pressure 98 mm[Hg] David Pacheco Jr. [facility] 01-17-2022 12:01-0400 Respiratory rate 16 /min David Pacheco Jr. [facility] 01-17-2022 12:01-0400 SaO2% (BldA) [Mass fraction] 94 % David Pacheco Jr. [facility] 01-17-2022 12:01-0400 Systolic blood pressure 129 mm[Hg] David Pacheco Jr. [facility] 01-17-2022 12:01-0400 Body temperature 97.34 [degF] David Pacheco Jr. [facility] 01-17-2022 11:55-0400 Blood Pressure Location David Pacheco Jr. [facility] 01-17-2022 11:55-0400 Body temperature 97.34 [degF] David Pacheco Jr. [facility] 01-17-2022 11:55-0400 Diastolic blood pressure 81 mm[Hg] David Pacheco Jr. [facility] 01-17-2022 11:55-0400 Heart rate 50 /min David Pacheco Jr. [facility] 01-17-2022 11:55-0400 Respiratory rate 12 /min David Pacheco Jr. [facility] 01-17-2022 11:55-0400 SaO2% (BldA) [Mass fraction] 97 % David Pacheco Jr. [facility] 01-17-2022 11:55-0400 Systolic blood pressure 126 mm[Hg] David Pacheco Jr. [facility] 01-17-2022 11:40-0400 Respiratory rate 16 /min David Pacheco Jr. [facility] 01-17-2022 11:25-0400 Respiratory rate 18 /min David Pacheco Jr. [facility] 01-17-2022 11:00-0400 Respiratory rate 25 /min David Pacheco Jr. [facility] 01-17-2022 10:55-0400 Respiratory rate 26 /min David Pacheco Jr. [facility] 01-17-2022 08:12-0400 gluc 121 mg/dL David Pacheco Jr. [facility] 01-17-2022 07:52-0400 Body temperature 97.7 [degF] David Pacheco Jr. [facility] 01-17-2022 07:52-0400 BP/Pulse Patient Position David Pacheco Jr. [facility] 01-17-2022 07:52-0400 Mean blood pressure 95 mm[Hg] David Pacheco Jr. [facility] 01-17-2022 07:52-0400 Heart rate 48 /min David Pacheco Jr. [facility] 01-11-2022 12:42-0400 Diastolic blood pressure 81 mm[Hg] David Pacheco Jr. [facility] 01-11-2022 12:42-0400 Heart rate 44 /min David Pacheco Jr. [facility] 01-11-2022 12:42-0400 Mean blood pressure 97 mm[Hg] David Pacheco Jr. [facility] 01-11-2022 12:42-0400 Respiratory rate 16 /min David Pacheco Jr. [facility] 01-11-2022 12:42-0400 SaO2% (BldA) [Mass fraction] 98 % David Pacheco Jr. [facility] 01-11-2022 12:42-0400 Systolic blood pressure 131 mm[Hg] David Pacheco Jr. [facility] 01-11-2022 12:42-0400 Blood Pressure Location David Pacheco Jr. [facility] 01-11-2022 12:42-0400 Body temperature 97.7 [degF] David Pacheco Jr. [facility] 01-11-2022 12:40-0400 Blood Pressure Location David Pacheco Jr. [facility] 01-11-2022 12:40-0400 Diastolic blood pressure 90 mm[Hg] David Pacheco Jr. [facility] 01-11-2022 12:40-0400 Heart rate 46 /min David Pacheco Jr. [facility] 01-11-2022 12:40-0400 Mean blood pressure 108 mm[Hg] David Pacheco Jr. [facility] 01-11-2022 12:40-0400 Respiratory rate 16 /min David Pacheco Jr. [facility] 01-11-2022 12:40-0400 SaO2% (BldA) [Mass fraction] 98 % David Pacheco Jr. [facility] 01-11-2022 12:40-0400 Systolic blood pressure 144 mm[Hg] David Pacheco Jr. [facility] Encounters Encounter Date Encounter Type Care Provider Facility Start: 02-10-2024 End: 02-11-2024 ambulatory Elsy X Orzech Facility:[facility] Start: 02-10-2024 End: 02-10-2024 Patient encounter procedure Elsy X Orzech [facility] Start: 12-30-2023 End: 12-31-2023 ambulatory Elsy X Orzech [place] Start: 12-30-2023 End: 12-31-2023 ambulatory Elsy X Orzech Facility:[facility] Start: 12-30-2023 End: 12-30-2023 Lab Drop off Elsy X Orzech [facility] Start: 12-30-2023 End: 12-30-2023 Patient encounter procedure Elsy X Orzech [facility] Start: 09-17-2023 End: 09-18-2023 ambulatory Jamil DE LUNA Facility:CD:[id number] Start: 09-14-2023 Chart abstracting Generic Exte rnal Data Provider GENERIC EXTERNAL DATA DEPARTMENT Start: 08-29-2023 End: 08-30-2023 ambulatory Jamil PLAZAL Facility:[facility] Start: 08-29-2023 End: 08-29-2023 Patient encounter procedure Jamil R NILL General Surgery Nill/S[facility] [place] Start: 08-14-2023 End: 08-14-2023 ambulatory [facility] Start: 03-12-2023 End: 03-13-2023 ambulatory Jamil R NILL Facility:[facility] Start: 03-12-2023 End: 03-12-2023 Patient encounter procedure Jamil R NILL General Surgery [facility] [place] Start: 02-26-2023 End: 02-26-2023 ambulatory ALFIE RAZA Facility:[facility] Start: 02-19-2023 ambulatory Delon Caballero Facility:[facility] Start: 02-18-2023 End: 02-19-2023 ambulatory PA-C EDGAR DANIELLE [place] [place] Start: 02-18-2023 End: 02-19-2023 ambulatory PAMarichuy DANIELLE Facility:[facility] Start: 02-04-2023 End: 02-05-2023 ambulatory SHANIA BHAT Facility:[facility] Start: 01-31-2023 End: 02-01-[address] DELON CABALLERO . Facility:[facility] Start: 01-31-2023 End: 01-31-2023 ambulatory SHANIA BHAT [facility] Start: 01-21-2023 End: 01-22-2023 ambulatory EDGAR DANIELLE [...] encounter procedure EDGAR DANIELLE [facility] Start: 07-01-2022 End: 07-02-2022 ambulatory EDGARBEVERLY DANIELLE [...] Start: 03-20-2022 End: 03-21-2022 ambulatory DAGOBERTO CORMIER Facility:[facility] Start: 03-18-2022 End: 03-19-2022 ambulatory SHANIA MALCOLMS Facility:[facility] Start: 03-07-2022 End: 03-29-[address] DELON CABALLERO . Facility:[facility] Start: 03-07-2022 End: 03-08-[address] DELON CABALLERO . Facility:[facility] Start: 02-20-2022 End: 02-21-[address] DELON CABALLERO . Facility:[facility] Start: 01-17-2022 End: 01-17-2022 Admission to same day surgery center David Pacheco Jr. [facility] Start: 01-11-2022 End: 01-11-2022 Patient encounter procedure David Pacheco Jr. [facility] Start: 12-25-2021 End: 12-25-2021 Patient encounter procedure David Pacheco JrKenneth [facility] Start: 01-18-2019 End: 01-19-2019 Patient encounter procedure EFREM MATSON [facility] Procedures Date Procedure Procedure Detail Performing Clinician Start: 12-13-2023 Echography of kidney Au mariza England Start: 07-03-[address] SONIDO CABALLERO . Comment on above: Performed By: #### P T #### [facility] [address] [place] [address] Dr. Curly Connell Start: 01-17-2022 Fluoroscopy guided [...] Start: 10-30-2024 Diabetes Screening Diabetes Screenin g [facility] Start: 05-30-2023 Influenza vaccination Influenza Vacc ine (#1) [facility] Start: 2023 RSV Vaccine (1 - 1-d ose 60+ series) RSV Vaccine (1 - 1-dose 60+ series) [facility] Start: 09-29-2022 Depression Assessment Depression Ass essment [facility] Start: 2018 Prostate specific an tigen measurement Prostate Cancer Screening Discussion [facility] Start: 2013 Shingrix Vaccine (1 of 2) Adair grix Vaccine (1 of 2) [facility] Start: 2008 Screening for malign ant neoplasm of colon [facility] Start: 1998 Lipid panel [facility] Start: 1982 Urine microalbumin profile DTa P,Tdap,Td Vaccine (1 - Tdap) [facility] Start: 1981 Hepatitis C screening Hepatitis C Sc reening [facility] Start: 1981 HIV screening HIV Screening [facility] Start: 1965 Covid-19 Vaccine (#1) Covid-19 Vacci ne (#1) [facility] Immunizations Immunization Date Immunization Notes Care Provider Renzo gatica 02-26-2023 tetanus toxoid, reduced diphtheria toxoid, and acellular pertussis vaccine, adsorbed Elsy England [facility] 08-27-2017 influenza, unspecifi ed formulation EDGAR DANIELLE [facility] 08-27-2017 influenza virus vaccine, unspecified formulation Generic Provider [facility] 06-26-2016 influenza, unspecifi ed formulation EDGAR ELIJAH [facility] NEGATED: Highlighted row has not occurred!08-29-2023 influenza virus vaccine, unspecified formulation Jamil DE LUNA General Surgery [place] Payers Date Payer Category Payer Medicare MEDICARE MEDICAR E A AND B [id number] 2017-Present [phone] [place] [address] Medicare [id number] 1965 Unknown [id number] 2.16.840.1.554540.3.579.2.175 1963 Unknown [id number] 2.16.840.1.313315.3.579.2.647 1963 Unknown [id number] 2.16.840.1.202434.3.579.2.593 1963 Unknown [id number] 2.16.840.1.211245.3.579.2.593 1963 Unknown [id number] 2.16.840.1.856712.3.579.2.593 1963 Unknown [id number] 2.16.840.1.061110.3.579.2.593 1963 Unknown [id number] 2.16.840.1.252523.3.579.2.593 1963 Unknown [id number] 2.16.840.1.526800.3.579.2.593 1963 Unknown [id number] 2.16.840.1.490377.3.579.2.593 1963 Unknown [id number] 2.16.840.1.285265.3.579.2.593 1963 Unknown [id number] 2.16.840.1.235063.3.579.2.593 1963 Unknown [id number] 2.16.840.1.407439.3.579.2.593 1963 Unknown [id number] 2.16.840.1.313261.3.579.2.593 1963 Unknown [id number] 2.16.840.1.360437.3.579.2.593 1963 Unknown [id number] 2.16.840.1.187960.3.579.2.593 1963 Unknown [id number] 2.16.840.1.541164.3.579.2.593 1963 Unknown [id number] 2.16.840.1.823828.3.579.2.593 1963 Unknown [id number] 2.16.840.1.153622.3.579.2.593 1963 Unknown [id number] 2.16.840.1.533554.3.579.2.593 1963 Unknown [id number] 2.16.840.1.714740.3.579.2.593 1963 Unknown [id number] 2.16.840.1.511894.3.579.2.593 1963 Unknown [id number] 2.16.840.1.295621.3.579.2.593 1963 Unknown [id number] 2.16.840.1.021993.3.579.2.593 1963 Unknown [id number] 2.16.840.1.784960.3.579.2.718 1963 Unknown [id number] 2.16.840.1.753238.3.579.2.727 1963 Unknown [id number] 2.16.840.1.048548.3.579.2.727 1963 Unknown [id number] 2.16.840.1.033540.3.579.2.727 1963 Unknown [id number] 2.16.840.1.210552.3.579.2.727 1963 Unknown [id number] 2.16.840.1.998587.3.579.2. 1963 Unknown [id number] 2.16.840.1.834800.3.579.2. 1963 Unknown [id number] 2.16.840.1.417164.3.579.2.727 1963 Unknown [id number] 2.16.840.1.535763.3.579.2.727 1963 Unknown [id number] 2.16.840.1.836077.3.579.2.727 1961 Medicare [id number] 1961 Unknown [id number] Social History Date Type Detail Facility Start: 08-08-2021 Tobacco smoking status Never s moked tobacco (finding) [facility] Tobacco smoking status Never [facility] Sex Assigned At Male [facility] Start: 03-12-2023 End: 12-30-2023 Tobacco smoking status Ex-smoker (finding) [facility] [place] Start: 10-29-2021 Alcohol intake Current drinke r of alcohol (finding) [facility] Start: 1965 Sex Assigned At Not on file [facility] Medical Equipment Procedure Code Equipment Code Equipment [...] 12-30-2023 Functional Status N/A [facility] 08-29-2023 Functional Status N/A [facility] 03-12-2023 Functional Status N/A [facility] [place] [facility] 07-03-2022 Functional Status N/A [facility] Clinical Notes 08-27-2021 to 12-30-2023 Note Date & Type Note Facility 12-30-2023 Evaluation + Plan note Diagnostic Tests PendingElectrolyte Panel 12/30/23 [facility] 12-30-2023 Hospital Discharge instructions Patient Education 12/30/2023 [...] include: ?8 oz (237 mL) of milk, crwcpkz-qehttealrfbs-hxlim milk, and calcium-fortifiedfruit juice. Calcium-fortified means that [...] ?Spinach (cooked), rhubarb, beets, sweet potatoes, and Vincentian chard. ?Peanuts. ?Potato chips, greek fries, and baked potatoes with skin on. ?Nuts and nut products. ?Chocolate. If you regularly take a diuretic medicine, make sure to eat at least 1 or 2 servings of fruits or vegetables that are high in potassium each day. These include: ?Avocado. ?Banana. ?[place], prune, carrot, or tomato juice. ?Baked potato. [...] magnesium, fish oil, or vitamin B6. Take jehw-wqs-vltngqy and prescription medicines only as told by [...] Casseroles. Pizza. Lasagna. Frozen meals. Potato chips. Slovenian fries. The items listed above may not [...] provider. Document Revised: 12/26/2022 Document Reviewed: 12/26/2022 [employer] Patient Education 2022 [employer]. Follow Up Care 02/18/2023 15:25:52 With:XIOMARA England APRN, JOSE Nash, URL Address: When:Within 1 Year(s) Comments:w/PSA With:EDGAR DANIELLE PA-C, URL Address: [address] [facility] [address] When: Unknown With:Samanta GRIFFIN XIOMARA, Elsy X, FAM, URL Address: When: Unknown [facility] [place] 08-29-2023 Note Chief Complaint consultation for rectal [...] managed by Dr Caballero. 2. Anticoagulated (Z79.01: longterm (current) use of 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) see # 1 [...] obstructing calculus Hyperten (more content not included)... [facility] Comment on above: Result Comment: Elec tronically Signed By: ANNAMARIE ISAREL, Jamil Hager.dixie\Date and Time Signed: 08/29/23 14:39 EST 08-14-2023 Note [facility] Cardiology Clinic Note Chief Complaint: Patient [...] to, cardiopulmonary vas (more content not included)... [facility] 04-01-2023 Note Chief Complaint consultation for constipation [...] (08/09/2019), Cystoscopic insertion (more content not included)... [facility] Comment on above: Result Comment: Elec tronically [...] at home: Medicines ? Take or apply ivcn-qwn-jpdepaq and prescription medicines only as told by [...] and water are not available, use hand commutator presser. ? Change your dressing as told by [...] by your health (more content not included)... [facility] 01-31-2023 Note Will send pt to pulm onology for evaluation and PFT's Reviewed recent echo 01/2022 and normal EF- LVSF; no significant valvular abnormalities and rt sided pressures. [facility] 01-31-2023 Note Sending for routine annual labs today in light he remains fasting, will add A1C to labs to assess glycemic management [facility] 01-31-2023 Note Hypertension is 130/ 91- States at home b/p is typically well controlled Continue all meds [facility] 01-31-2023 Note [facility] CARDIOLOGY PROGR ESS NOTE HPI: Doris Luis is a 57 y.o. 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 Admits continued shortness of breath with exertion- carrying items, bending over to continuous pickling line pickler helper items, and with exercise. Denied orthopnea, palpitations, [...] sided pressures Assessment/Plan: Coronary artery disease involving [place] coronary artery of [place] heart without angina pectoris Coronary artery disease [...] on warfarin anticoagulation (more content not included)... [facility] 01-31-2023 Note Patient here for 10 mo [...] All other systems reviewed and are negative. [facility] 01-31-2023 Note Remains on warfarin anticoagulation [facility] 01-31-2023 Note Continue crestor Script for lipid level and liver function provided to pt- will have drawn today [facility] 01-31-2023 Note Continue amlodipine [place] [facility] 01-31-2023 Note Coronary artery dise ase is stable without any concerning symptoms Continue GDMT- ASA, crestor, metoprolol, lisinopril continue risk factor modifications- heart healthy diet, regular exercise as tolerated and continue all medications. [facility] 07-03-2022 Hospital Discharge instructions Patient Education 07/03/2022 13:32:37 Kidney Stones, Tgib-qk-Ckuh Kidney Stones Kidney stones are rock-like masses [...] Follow these instructions at home: Medicines Take rccy-fbn-qzdwexq and prescription medicines only as told by [...] 03/03/2009 Document Revised: 02/01/2020 Document Reviewed: 02/01/2020 [employer] Patient Education 2020 [employer] 07/03/2022 13:32:36 Calorie Counting for Weight [...] 09/15/2006 Document Revised: 06/04/2019 Document Reviewed: 08/15/2017 [employer] Patient Education 2020 [employer]. Follow Up Care 06/26/2021 10:22:59 With:EDGAR DANIELLE PA-C, URL Address: [address] [place] [address] When: Unknown [facility] 07-03-2022 Evaluation + Plan note Diagnostic Tests PendingPSA Total 07/03/22 [facility] 01-17-2022 Evaluation + Plan note Extrac jing from: Title:ANES POSTOP MAC/GEN NOTE Author:Fabián Robertson JR Date:01/17/22 Plan Transfer/ Discharge: Patient can be discharged from PACU when criteria met. Condition good. Extracted from: Title:ANES PREOP GEN ADULT NOTE Author:Fabián Turcios JR, DO Date:01/17/22 Plan [place] Society of Anesthesiologists (ASA) physical status classification: Class III. Anesthetic Preoperative Plan Anesthesia: General. . Anesthetic plan, risks, benefits, and alternatives discussed with the patient and/or family. Pt. and/or family present and agree to proceed as planned.. Discussed the importance of abstaining from tobacco products, and offered counseling if desired. Future Appointments Appointment Date:2022 10:45:00 AM Scheduled Provider:David Pacheco Jr., MD Location:[facility] Appointment Type:URO Office Visit [facility]04-21-2022 Hospital Discharge instructions Patient Education 01/17/2022 11:37:55 [...] Up Care 12/31/2021 11:37:23 With:EDGAR DANIELLE Address: [address] [place] [address] [facility] (1) When:6 weeks Comments:KUB x-ray with next visit. [facility]03-29-2022 Hospital Discharge instructions Patient Education 12/25/2021 09:52:56 [...] urethra. Follow these instructions at home: Take jpay-omq-pvrxpws and prescription medicines only as told by [...] 09/15/2006 Document Revised: 08/10/2019 Document Reviewed: 10/20/2017 [employer] Patient Education 2020 [employer]. Follow Up Care 12/24/2021 14:06:11 With:Junior Mccollum MD, David Darling, URO Address: When: Unknown Comments:schedule ESWL [facility] 11-29-2021 NoteHNO ID: [id number] Author: Tracey Eagle MD Service: ? Author Type: Physician Type: Progress Notes Filed: 08/27/2021 10:02 AM Note Text: [facility] Patient: Doris Luis Provider Tracey Eagle MD : 1965 Location: [facility] Date of Service: August 27, 2021 [...] LUCACREA, LUCREACL, LWK, LUSUL in the last [id number] hours. 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 No current facility-administered medications for this visit.[facility] Future Appointments Appointment Date:2022 10:45:00 AM Scheduled Provider:David Pacheco Jr., MD Location:[facility] Appointment Type:URO Office Visit [facility] evaluation + Plan note Future Appointments Appointment Date:01/17/2022 10:00:00 AM Scheduled Provider: Location:[facility] Appointment Type:Surgery FT Appointment Date:2022 10:45:00 AM Scheduled Provider:David Pacheco Jr., MD Location:[facility] Appointment Type:[facility] Future Appointments Appointment Date:08/26/2023 10:00:00 AM Scheduled Provider:EDGAR DANIELLE PA-C Location:[facility] Appointment Type:URO Office Visit [facility] [place] Evaluation + Plan note Future Appointments Appointment Date:09/30/2023 02:30:00 PM Scheduled Provider:EDGAR DANIELLE PA-C Location:[facility] Appointment Type:URO Office Visit [facility] [place] Hospital course Narrative No data available for this section [facility] Hospital Discharge instructions No data available for this section [facility] No data available for this section [facility] Margie Summary Purpose Family History No [...] section and content) DATE CREATED AUTHOR 01/21/2019 [facility] DATE CREATED AUTHOR AUTHOR'S ORGANIZ ATION 11/06/2021 [facility] DATE CREATED AUTHOR AUTHOR'S ORGANIZ ATION 04/08/2022 [facility] DATE CREATED AUTHOR AUTHOR'S ORGANIZ ATION 02/08/2023 [facility] DATE CREATED AUTHOR AUTHOR'S ORGANIZ ATION 03/09/2023 [facility] DATE CREATED AUTHOR AUTHOR'S ORGANIZ ATION 08/16/2023 [facility] DATE CREATED AUTHOR AUTHOR'S ORGANIZ ATION 02/11/2024 [facility] Patient Care team informatio n (unrecognized section and content) Sizing Sprayer Relationship Specialty Start Date End Date Delon [...] or prosecute any alcohol or drug abuse patient.[facility] FOR RECORDS PERTAINING TO PATIENTS [...] BE BASED ON THE PRIMARY CLINICAL RECORDS. [facility]. provides no warranty or guarantee of the accuracy or completeness of information in this document.
[2024-08-03 13:00] LABS: INR 2.56; Prothrombin Time 24.7 sec (9.0-11.6)
== END 2024-08-03 12:32 | disposition home or self-care (01) ==
LOC: LAB 12:32
PROVIDERS: PCP Family Medicine; Visit Provider Family Medicine
DX: I82.91 Chronic embolism and thrombosis of unspecified vein (principal)
CPT/HCPCS: 36415; 85610

== ENCOUNTER 2024-11-03 15:11 | Emergency (ER) | payer MEDICARE, SELFPAY ==
[2024-11-03] VITALS (11 sets, daily range): BP systolic 96–135; BP diastolic 69–87; PULSE 51–68; TEMP 36.6; O2SAT 91–99; BMI 33.8
--- NOTE | 2024-11-03 15:20 | XR_ITS ---
The [address] [address] Patient Name: DORIS PARKER MRN: [id number] date: 1965 Sex: M Assigned Patient Location: ER Current Patient Location: ER Accession/Order Number: [id number] Exam Date: 11/03/2024 15:28 Report Date: 11/03/2024 15:42 At the request of: AZALEA GARZA Procedure: XR chest 1V EXAM: XR chest 1V HISTORY: . cp . COMPARISON: 10/02/2021 TECHNIQUE: Single view of the chest FINDINGS: Heart and vascularity are unremarkable. Lungs are free of focal infiltrates. Grossly no bony abnormality is appreciated. EKG leads overlie the chest. XR/XR chest 1V IMPRESSION: No acute heart or lung disease identified. Electronically authenticated by: EFREM MICHAEL Date: 11/03/2024 15:42
--- NOTE | 2024-11-03 15:20 | ECG_ITS ---
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
--- NOTE | 2024-11-03 15:32 | ED.GENADUL1 ---
HPI HPI - General Adult General Chief complaint: Chest Pain Stated complaint: SENT BY [facility] Time Seen by Provider: 11/03/24 15:20 Mode of arrival: walk-in History of Present Illness HPI narrative: Patient presents to ED complaining of chest pain over the weekend. Patient states he was making pizza with his grand children when he started to get a severe chest pain. He said he then had to go lay down. He was very diaphoretic at the time and he said the chest pain eventually slowly went away that same night. He has an extensive history of coronary artery disease. He had his last cath in 2021. He has a history of DVT and PE due to a history of antiphospholipid syndrome. He has a [place] filter in place. He was at his reading instructor office today because of the chest pain over the weekend and his reading instructor called me to send him over here. He requested that we trend his troponins and then determine best course of action from there. Patient is pain-free at this time. Patient states he is also been dealing with syncopal episodes but this has been an ongoing issue and has been present since before the chest pain started this weekend. His reading instructor is also aware of the syncopal episodes. Currently the patient is stable alert and oriented in no acute distress. Related Data Home Medications ?Medication ?Instructions ?Recorded ?Confirmed albuterol 90 mcg/actuation aerosol 90 mcg inhalation .every 4 hours 09/09/23 11/03/24 inhaler PRN shortness of breath celecoxib 200 mg capsule (Celebrex) 200 mg PO DAILY 09/09/23 11/03/24 lisinopril 30 mg tablet 30 mg PO DAILY 09/09/23 11/03/24 metoprolol tartrate 100 mg tablet 100 mg PO BID 09/09/23 11/03/24 multivitamin 1 tab PO DAILY 09/09/23 11/03/24 omeprazole 20 mg capsule,delayed 20 mg PO DAILY 09/09/23 11/03/24 release rosuvastatin 40 mg tablet 40 mg PO DAILY 09/09/23 11/03/24 sumatriptan succinate 25 mg tablet 25 mg PO DAILY PRN migraine 09/09/23 11/03/24 (Imitrex) headache warfarin 4 mg tablet 4 mg PO DAILY 09/09/23 11/03/24 amlodipine 5 mg tablet 5 mg PO DAILY 11/03/24 11/03/24 venlafaxine 75 mg tablet 75 mg PO DAILY 11/03/24 11/03/24 Allergies Allergy/AdvReac Type Severity Reaction Status Date / Time acetaminophen (From Vicodin) AdvReac Mild Headache Verified 09/09/23 13:23 hydrocodone (From Vicodin) AdvReac Mild Headache Verified 09/09/23 13:23 Penicillins AdvReac Mild hives Verified 09/09/23 13:23 Sulfa (Sulfonamide AdvReac Mild Hives Verified 09/09/23 13:23 Antibiotics) Opioid HPI Opioid Management Most Recent Opioid Data: No Data to Display Review of Systems ROS Status of ROS 10 or more systems reviewed and unremarkable except as noted in history and below [facility] Medical History (Updated 11/03/24 @ 16:25 by Angi Covington DO) [place] filter in place ?Z95.828 - Presence of other vascular implants and grafts (ICD-10) Vitamin D deficiency ?E55.9 - Vitamin D deficiency, unspecified (ICD-10) Hydronephrosis ?N13.30 - Unspecified hydronephrosis (ICD-10) Ureteral calculi ?N20.1 - Calculus of ureter (ICD-10) Rheumatoid arthritis ?M06.9 - Rheumatoid arthritis, unspecified (ICD-10) Renal cyst ?N28.1 - Cyst of kidney, acquired (ICD-10) Rectal bleeding ?K62.5 - Hemorrhage of anus and rectum (ICD-10) Obesity ?E66.9 - Obesity, unspecified (ICD-10) Lumbar radiculopathy ?M54.16 - Radiculopathy, lumbar region (ICD-10) Hypothyroidism ?E03.9 - Hypothyroidism, unspecified (ICD-10) Hypertension ?I10 - Essential (primary) hypertension (ICD-10) Hyperlipidemia ?E78.5 - Hyperlipidemia, unspecified (ICD-10) Hypercholesterolemia ?E78.00 - Pure hypercholesterolemia, unspecified (ICD-10) DVT (deep venous thrombosis) ?I82.409 - Acute embolism and thrombosis of unspecified deep veins of unspecified lower extremity (ICD-10) Gross hematuria ?R31.0 - Gross hematuria (ICD-10) Gastric reflux ?K21.9 - Gastro-esophageal reflux disease without esophagitis (ICD-10) GERD (gastroesophageal reflux disease) ?K21.9 - Gastro-esophageal reflux disease without esophagitis (ICD-10) Diabetes ?E11.9 - Type 2 diabetes mellitus without complications (ICD-10) CAD (coronary artery disease) ?I25.10 - Atherosclerotic heart disease of [place] coronary artery without angina pectoris (ICD-10) BPH (benign prostatic hyperplasia) ?N40.0 - Benign prostatic hyperplasia without lower urinary tract symptoms (ICD-10) Nephrolithiasis ?N20.0 - Calculus of kidney (ICD-10) Antiphospholipid antibody syndrome ?D68.61 - Antiphospholipid syndrome (ICD-10) Anxiety ?F41.9 - Anxiety disorder, unspecified (ICD-10) Anticoagulated ?Z79.01 - supervisor intermediates (current) use of 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 (ICD-10) Surgical History (Updated 09/09/23 @ 13:07 by Arabella Glass RN) Hx of tonsillectomy ?Z90.89 - Acquired absence of other organs (ICD-10) Status post medial meniscal repair ?Z98.890 - Other specified postprocedural states (ICD-10) H/O lumbosacral spine surgery ?Z98.890 - Other specified postprocedural states (ICD-10) S/P excision of lipoma ?Z98.890 - Other specified postprocedural states (ICD-10) ?Z86.018 - Personal history of other benign neoplasm (ICD-10) History of cataract extraction ?Z98.49 - Cataract extraction status, unspecified eye (ICD-10) H/O cardiac catheterization ?Z98.890 - Other specified postprocedural states (ICD-10) H/O hemorrhoidectomy ?Z98.890 - Other specified postprocedural states (ICD-10) H/O colonoscopy ?Z98.890 - Other specified postprocedural states (ICD-10) Hx of heart artery stent ?Z95.5 - Presence of coronary angioplasty implant and graft (ICD-10) H/O cystoscopy ?Z98.890 - Other specified postprocedural states (ICD-10) H/O lithotripsy ?Z98.890 - Other specified postprocedural states (ICD-10) Family History (Updated 09/09/23 @ 12:49 by Arabella Glass RN) Other Family history of CHF (congestive heart failure) Family history of cancer Family history of diabetes mellitus Family history of hypertension Family history of myocardial infarction Social History (Updated 09/09/23 @ 12:51 by Arabella Glass RN) Within the past year, how often did you have a drink containing alcohol: monthly or less Within the past year, how often did you have six or more drinks on one occasion: never Smoking status: Former smoker Second hand tobacco smoke exposure: No Non-prescribed substance use: denies use Previous occupational history: RETIRED- [employer] Highest level of school completed/degree received: 12th grade, no diploma Little interest or pleasure in doing things: not at all Feeling down, depressed, or hopeless: not at all Exam Narrative Exam Narrative: Time Seen: [] Vital Signs: [Per nurse's notes.] General: [Alert] Skin: [Warm, dry, no rash.] Head: [Normocephalic, atraumatic.] Neck: [Supple, trachea midline.] Eye: [Pupils are equal, round and reactive to light, extraocular movements are intact, normal conjunctiva.] Ears, nose, mouth and throat: oral mucosa moist. Cardiovascular: [Regular rate and rhythm, no murmur.] Respiratory: [Lungs are clear to auscultation, respirations are non-labored, breath sounds are equal.] Chest wall: [No tenderness, no deformity.] Gastrointestinal: [Soft, nontender, non distended, normal bowel sounds.] MSK: 5 out of 5 muscle strength x 4 extremities no calf pain or edema Lymphatics: [No lymphadenopathy.] Psychiatric: [Cooperative, appropriate mood & affect.] Neurological: [Alert and oriented to person, place, time, and situation, no focal neurological deficit observed.] Constitutional Vital Signs, click to edit/add: Last Vital Signs Temp 97.8 F 11/03/24 15:16 Pulse 53 L 11/03/24 16:30 Resp 22 H 11/03/24 16:30 BP 113/73 11/03/24 16:00 Pulse Ox 95 11/03/24 16:30 O2 Del Method Room Air 11/03/24 15:16 Course Vital Signs Vital signs: Vital Signs Temperature 97.8 F 11/03/24 15:16 Pulse Rate 64 11/03/24 15:16 Respiratory Rate 18 11/03/24 15:16 Blood Pressure 135/79 11/03/24 15:16 Pulse Oximetry 96 11/03/24 15:16 Oxygen Delivery Method Room Air 11/03/24 15:16 Temperature 97.8 F 11/03/24 15:16 Pulse Rate 53 L 11/03/24 16:30 Respiratory Rate 22 H 11/03/24 16:30 Blood Pressure 113/73 11/03/24 16:00 Pulse Oximetry 95 11/03/24 16:30 Oxygen Delivery Method Room Air 11/03/24 15:16 Medical Decision Making MDM Narrative Medical decision making narrative: Patient's initial troponin is 47. I spoke to his reading instructor and relayed this information and he requested that I transfer the patient to [facility]. I spoke to Aubree who accepted the admission for the hospitalist Dr. Blue at [facility]. I updated patient and family and they are comfortable with care plan for transfer to [facility]. Patient is stable here in the. He is not having any continued chest pain at this time. Vital signs are stable. Differential Diagnosis Differential Diagnosis: ACS, unstable angina, Lab Data Lab results reviewed: Yes I reviewed the patient's lab results Labs: Lab Results 11/03/24 Range/Units 15:25 WBC 9.1 (4.0-11.0) 10^3/uL RBC 5.73 (4.70-6.10) 10^6/uL Hgb 12.3 L (14.0-18.0) g/dL Hct 41.6 L (42.0-54.0) % MCV 72.6 L (80.0-94.0) fL MCH 21.5 L (25.9-34.0) pg MCHC 29.6 L (29.9-35.2) g/dL RDW 17.8 H (11.0-15.0) % Plt Count 377 (150-450) 10^3/uL MPV 10.4 (9.5-13.5) fL Neut % (Auto) 63.9 (43.0-75.0) % Lymph % (Auto) 25.2 (20.5-60.0) % [place] % (Auto) 8.1 (1.7-12.0) % Eos % (Auto) 1.7 (0.9-7.0) % Baso % (Auto) 0.8 (0.2-2.0) % Neut # (Auto) 5.8 (1.4-6.5) 10^3/uL Lymph # (Auto) 2.3 (1.2-3.8) 10^3/uL [place] # (Auto) 0.7 (0.3-0.8) 10^3/uL Eos # (Auto) 0.2 (0.0-0.7) 10^3/uL Baso # (Auto) 0.1 (0.0-0.1) 10^3/uL Abs Immat Gran (auto) 0.03 (0.00-0.03) 10^3/uL Imm/Tot Granulo (auto) 0.3 (0.0-0.5) % Sodium 140 (136-145) mmol/L Potassium 4.3 (3.5-5.1) mmol/L Chloride 104 (98-107) mmol/L Carbon Dioxide 25.7 (21.0-32.0) mmol/L Anion Gap 14.6 BUN 25.0 H (7.0-18.0) mg/dL Creatinine 1.58 H (0.70-1.30) mg/dL Est GFR ( Amer) 54 L (>=60 mL/min/1.73m^2) Est GFR (Non-Af Amer) 45 L (>=60 mL/min/1.73m^2) BUN/Creatinine Ratio 15.8 Glucose 135 H (74-106) mg/dL Calcium 8.9 (8.5-10.1) mg/dL Total Bilirubin 0.5 (0.2-1.0) mg/dL AST 18 (15-37) U/L ALT 23 (16-63) U/L Alkaline Phosphatase 75 (46-116) U/L Troponin I High Sens 47.0 (4.0-76.1) pg/mL Total Protein 7.6 (6.4-8.2) g/dL Albumin 3.6 (3.4-5.0) g/dL Globulin 4.0 g/dL Albumin/Globulin Ratio 0.9 Imaging Data Chest x-ray: Radiologist's impression: ITS Impressions Chest X-Ray 11/03/24 15:20 IMPRESSION: No acute heart or lung disease identified. Electronically authenticated by: EFREM MICHAEL Date: 11/03/2024 15:42 ECG Data Attestation: I personally reviewed and interpreted this ECG as follows: Interpretation: EKG INTERPRETATION Time: [] 151 Rate: [] 59 Rhythm: _ [] Sinus bradycardia ST segments: _ [] No ST elevation or depression T waves: _ [] Ectopy: _ [] P wave/IN interval: _ [] QRS interval: _ [] QT interval: _ [] Comparison: _ [] Comparison EKG date: [] Performed by: [self] Discharge Plan Discharge Chief Complaint: Chest Pain Clinical Impression: Chest pain Patient Disposition: [facility] Time of Disposition Decision: 16:24 Discharge Location: [facility] Mode of Transportation: EMS
[2024-11-03 15:40] LABS: Basophils Absolute Auto 0.1 10^3/uL (0.0-0.1); Basophils Percent Auto 0.8 % (0.2-2.0); Eosinophils Absolute Auto 0.2 10^3/uL (0.0-0.7); Eosinophils Percent Auto 1.7 % (0.9-7.0); Hematocrit 41.6 % (42.0-54.0); Hemoglobin 12.3 g/dL (14.0-18.0); Immature Granulocytes Abs Auto 0.03 10^3/uL (0.00-0.03); Immature Granulocytes Pct Auto 0.3 % (0.0-0.5); Lymphocytes Absolute Auto 2.3 10^3/uL (1.2-3.8); Lymphocytes Percent Auto 25.2 % (20.5-60.0); Mean Corpuscular HGB Conc 29.6 g/dL (29.9-35.2); Mean Corpuscular Hemoglobin 21.5 pg (25.9-34.0); Mean Corpuscular Volume 72.6 fL (80.0-94.0); Mean Platelet Volume 10.4 fL (9.5-13.5); Monocytes Absolute Auto 0.7 10^3/uL (0.3-0.8); Monocytes Percent Auto 8.1 % (1.7-12.0); Neutrophils Absolute Auto 5.8 10^3/uL (1.4-6.5); Neutrophils Percent Auto 63.9 % (43.0-75.0); Platelet Count 377 10^3/uL (150-450); Red Blood Count 5.73 10^6/uL (4.70-6.10); Red Cell Distribution Width 17.8 % (11.0-15.0); White Blood Count 9.1 10^3/uL (4.0-11.0)
--- OUTSIDE RECORDS SUMMARY | 2024-11-03 15:41 | XMS_ITS | CCD ---
Author Organization [facility] Care Team Providers Care Superintendent Pressure Name Role Phone EFREM MATSON Admitting Unavailable [...] Unavailable HOY ., DR LIU Consulting Unavailable GADSDEN, DR EFREM Ventura Consulting Unavailable HOY ., [...] HOY ., DR LIU Primary Care Unavailable [facility], DR MASON Braun Consulting Unavailable ELIJAH, [...] SLAUGHTER Admitting Unavailable ALFIE SLAUGHTER Attending Unavailable DELON CABALLERO Primary Care Unavailable Delon Caballero MD Primary Care Provider [phone] Delon Caballero MD Unavailable Jamil DE LUNA Attending Unavailable Orzech, Elsy X Attending Unavailable ALEJANDRO DANIELLE Attending Unavailab le Orzech, Elsy X Attending Unavailable Orzech, Elsy X Admitting Unavailable Orzech, Elsy X Attending Unavailable Orzech, Elsy X Admitting Unavailable Orzech, Elsy X Attending Unavailable ALEJANDRO DANIELLE Admitting Unavailab ALEJANDRO Funez Attending Unavailab Jamil Mccollum Attending Unavailable ANNAMARIE, Jamil Braun Attending Unavailable Delon Caballero Referring Unavailable Delon Caballero Referring Unavailable Jamil DE LUNA Attending Unavailable ELTAWADE, EHAB Attending Unavailable JASVIR CANTU Attending Unavailable Allergies Allergy Classification Reported Allergen(s) Allergy Type Date of Onset Reaction(s) Facility (10 sources) Acetaminophen / HYDROcodone; Translations: [acetaminophen-hy drocodone] Drug Allergy Hallucinations (finding), Migraine (disorder) [facility] (14 sources) Penicillins; Translations: [penicillins] Drug allergy 4 Weal (disorder) [facility] (10 sources) Sulfonamides (Antibiotic); Translations: [sulfa drugs] Drug allergy Weal (disorder) [facility] (1 source) Acetaminophen / HYDROcodone Drug Allergy [facility] (2 sources) Sulfonamides (Antibiotic) Drug allergy (disorder) 5 [facility] (1 source) Penicillin; Translations: [penicillin] Drug Allergy [facility] Medications Current Medications Medication [...] day(s), # 6 tab(s), Refills(s) 0, Pharmacy: [address], 178, cm, 01/11/22 13:03:00 EDT, Height/Length [...] for 30 day(s), 60 tab(s), Refill(s) 6, [facility], 178, cm, 12/30/23 11:22:00 EDT, [...] Ordered Start: 08-29-2020 [facility] 1 capsule [facility] venlafaxine 75 mg Cap-ER 75 mg = 1 cap(s), Oral, Daily, take 1 capsule by mouth once daily, Anxiety Start Date: 08/29/20 Status: Ordered take 1 tablet by [facility] twice daily venlafaxine (EFFEXOR) 75 [...] Onset: 2 Episodic Coagulation and hemorrhagic disorders (6 sources) Antiphospholipid syndrome; Translations: [Antiphospholipid syndrome] Onset: 2 02-26-2023 Chronic Coronary atherosclerosis and other heart disease (17 sources) Coronary arteriosclerosis; Translations: [Atherosclerotic heart disease of [place] coronary artery without angina pectoris] Onset: 2 07-19-2019 Chronic Diabetes mellitus with complications (1 source) Type 2 diabetes mellitus with other specified complication; Translations: [TYPE 2 DM W/OTHER SPEC COMPLICATION] Onset: 3 Chronic Diabetes mellitus without complication (9 sources) Diabetes mellitus 05-25-2019 Chronic Disorders of lipid metabolism (20 sources) Hypercholesterolemia; Translations: [Hyperlipidemia, unspecified] Onset: 3 05-25-2019 Chronic Esophageal disorders (13 sources) Gastroesophageal reflux disease 07-22-2019 Chronic Essential hypertension (19 sources) Hypertensive disorder; Translations: [Essential (primary) hypertension] [...] sources) Long-term current use of anticoagulant; Translations: [half-way (current) use of 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] Onset: 2 Episodic [...] sources) Altered bowel function 08-15-2023 Episodic Other lower respiratory disease (1 source) Other forms of dyspnea; Translations: [OTHER FORMS OF DYSPNEA] Onset: 3 Episodic Other nutritional; endocrine; and metabolic disorders (2 sources) Obese class I; Translations: [Body mass index (BMI) 33.0-33.9, adult] Onset: 2 Chronic Other nutritional; endocrine; and metabolic disorders (6 sources) Body mass index 30+ - obesity 07-03-2022 Chronic Other nutritional; endocrine; and metabolic disorders (1 source) Obesity, unspecified; Translations: [OBESITY UNSPECIFIED] Onset: 3 [...] Onset: 09-24-2022 Episodic Other aftercare (1 source) 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; Translations: [FDC CURRNT USE ANTICOAGULANTS] Onset: 09-24-2022 Episodic Results Test Name Value Interpretation Reference Range Facility Office Visiton 08-03-2024 Follow-up visit [id number] Doris Luis 1965 M Date Provider Department Center 08/03/2024 JASVIR RM MAXX English Family History Problem Relation Age of Onset Coronary artery disease Mother Coronary artery disease Father Family Status - Relation Status Age at Mother Father Level of Service:98751 CO OFFICE/OUTPATIENT ESTABLISHED MOD MDM 30 MIN Reason for Visit and Comments: Coronary Artery Disease [187] Hypertension [917934] Hyperlipidemia [182] Normal [facility] Ambulatory Visit Summaryon 0 02-10-2024 Ambulatory Visit [...] Cardiac catheterization, Cataract extraction, Excision of lipoma, Salisbury filter, History of lumbar spine surgery, Meniscal [...] for choosing us for your care. Normal [facility] Formson 12-31-2023 Forms [id number]#1 .00TIFF Normal [facility] CHEMISTRYOrdered By: SYSTEM SYSTEM on 12-30-2023 [...] used for this result was chemiluminescence using [employer]'s Access Hybritech PSA reagent. PSA Screen, Totalon 12-30-19 24 Prostate specific Ag [Mass/Vol] 1.7 ng/mL Normal 0.1-3.5 [facility] Comment on above: Result Comment: The concentration of PSA determined by different manufacturers can vary due to differences in assay methods and reagent specificity. Values obtained from different assay methods cannot be used interchangeably. The methodology used for this result was chemiluminescence using [employer]'s Access Hybritech PSA reagent. Performed By: #### 1 [id number] ####[facility] [address] [place] [address] Patient Educationon 12-30-19 Patient Education Nephrology Dietary [...] Spinach (cooked), rhubarb, beets, sweet potatoes, and Salvadorean chard. ? Peanuts. ? Potato chips, nauruan fries, and baked potatoes with skin on. ? Nuts and nut products. ? Chocolate. ? If you regularly take a diuretic medicine, make sure to eat at least 1 or 2 servings of fruits or vegetables that are high in potassium each day. These include: ? Avocado. ? Banana. ? Elbert, prune, carrot, or tomato juice. ? Baked [...] fish oil, or vitamin B6. ? Take gfhx-apj-ircczfp and prescription medicines only as told by your health care provider. These include supplements. What foods sh (more content not included)... Normal [facility] Urology Office/Clinic Noteon 12-30-2023 Urology Office/Clinic Note Chief Complaint 6 mo f/u w/ Renal US HPI Staff Former DLS pt 6m MAKENNA & PSA (pt RS'd) DX: Kidney Stone, BPH & Renal Cyst *No Urology Meds Last Tx'd for stones in 2021 Stone Analysis 02/18/23 ([facility] [place] *Uric Acid KUB 03/12/23 Metabolic Work Up [...] resolved when stone passed. Stone Analysis 02/18/23 ([facility] [place] *Uric Acid MAKENNA 12/13/23 - 2 mm [...] URL In 1 year Additional Instructions: w/PSA ELIJAH ALLEN, EDGAR Paniagua, URL [address] [place] [address] Additional Instructions: XIOMARA England APRN, Elsy Skaggs, [...] Excision of (more content not included)... Normal [facility] Comment on above: Result Comment: Elec tronically Signed By: XIOMARA England APRN, Aurora X\.br\Date and Time Signed: 12/30/23 12:27 EDT\.br\Electronically Co-Signed By: EDGAR DANIELLE PA-C RAD - Ultrasound Reporton RAD - Ultrasound Report [id number]#1 .00TIFF Normal [facility] Outside Colonoscopyon 2022 Outside Colonoscopy [id number]#1 .00TIFF Normal [facility] Reminderson 09-18-2023 Reminders - From: Delilah Fink LPN To: N - Clinical; Sent: 09/18/2023 12:45:06 EST Show up: 08/18/2033 07:00:00 EST Subject: colonoscopy recall Due Date/Time: 09/17/2033 07:00:00 EST Reminder/Recall Patient due for screening colonoscopy 09/17/2033. Normal [facility] Reminderson 09-12-2023 Reminders - From: Aisha [...] pt is scheduled 09/19/23 @ 0900. Normal [facility] Physician Referralon 023 Physician Referral [id number]#1 .00TIFF Normal [facility] Consent for Procedure/Surger yon 09-01-2023 Consent for Procedure/Surgery [id number]# 1.00TIFF [facility] Ambulatory Visit Summaryon 1 10-30-2022 Ambulatory Visit Summary DORIS LUIS :1965 Visit Date:08/29/2023 Ambulatory Visit Instructions Your Care Team Attending Physician - ANNAMARIE ISRAEL, Jamil Braun Primary Care Physician - Ada ISRAEL, Delon Referring Physician - Delon Caballero MD This [...] EDGAR DANIELLE PA-C Where: [facility] Physician Referralon 023 Physician Referral [id number]#1 .00TIFF [facility] Office Visiton 08-14-2023 Follow-up visit [id number] Doris Luis 1965 M Date Provider Department Center 08/14/2023 Radha-DAGOBERTO CORMIER [facility] Family History Problem Relation Age of Onset Coronary artery disease Mother Coronary artery disease Father Family Status - Relation Status Age at Mother Father Level of Service:34069 CO OFFICE/OUTPATIENT ESTABLISHED LOW MDM 20-29 MIN Normal [facility] Physician Referralon 023 Physician Referral [id number]#1. 00TIFF [facility] Physician Referralon 023 Physician Referral [id number]#1 .00TIFF [facility] Lab Reportson 03-21-2023 Lab Reports [id number]#1 .00CD:127 [facility] Lab Reports [id number]#1. 00CD:127 [facility] RAD - MISCon 03-21-2023 RAD - MISC [id number]#1 .00CD:127 [facility] Lab Reportson 03-18-2023 Lab Reports [id number]#1 .00CD:127 [facility] Lab Reports [id number]#1 .00CD:127 [facility] Ambulatory Visit Summaryon 0 03-12-2023 Ambulatory Visit Summary DORIS LUIS :1965 Visit Date:03/12/2023 Ambulatory Visit Instructions Your Care Team Attending Physician - ANNAMARIE ISRAEL, Jamil Braun Primary Care Physician - Ada ISRAEL, Delon This Is Your Medications List amlodipine (amLODIPine [...] pyelography (07/06/2014), Hemorrhoidectomy (2009), Excision of lipoma, Salisbury filter, History of lumbar spine surgery, Meniscal repair, Tonsillectomy. Discharge Vitals Heart Rate (Peripheral) 72 Respiratory Rate 16 Blood Pressure 126/78 Height 177.8 cm Height 70 in Weight 105 kg Weight 231 lb BMI 33.21 What to do next Scheduled Follow-Up Appointments Friday 10:00 AM EST With: EDGAR DANIELLE PA-C Where: [facility] Historical Records Officeon 03-10-2023 Historical Records Office [id number]#1 .00CD:127 [facility] Coding Summaryon 02-28-2023 Coding Summary HTMLBase 64 JnwwfqicXAx0aBh+PGhlY WQ+EY2VBNRoG34syDEdfZ 9lK4PJNMtOWqpmWWTGBDf BJcRciqEaQZ2llTJvKVXc IC8+ZL1lXBMeEkfmkEAmx 3P3jVJ3J29tif5jDSpneW S5TDAuUaVcgqwpz6yipLy 6IDcuNmluOyBt SMNrcW21LSJ0vV23Uk17u WRxxTEps4eglJj9NsNkOT VhKYP8xRzkOStdv8EtHAL vC13jfWLbr3Q5 TPWpwWxdhXXqOuOezIB4m J8mLXgxzawjv3plizsxGn f7ju05nFIjx9A2rVO2E0A vdfQ1VYJzgEGv CahvuJPNrB4qqzqhg7mdh vfiIeMxCTLpHMp0WZf0JF ByrBvuSoBxFC00DDN4DRK augNbF8XgTLRn cPxuAhZ0b8G6Ui9ZL5XOZ lcqX7LEFDRGTMwpcFM+PC 12rk74J3NqXsiwSay4DDI fTUA3qCA6tX9p HEOiNIifx5H1jFU0J4Mfz fXjxl8zu1vaRQJeWXtnN8 8zrLNbp3Q9ZDFmiCH8APK beXbbMaIcmQ63 Oyc+EVRvtAhwv5CbGfrpz 5ign6igeMs5QcvlNINlby TwnRqpGCR7n9SgWy2qVVC gzUX0rSE5bL6j SdDkObE8GDajR112OgItc BCfVlekE83vC1BnmFU+PH TeHjf4GMOqqChoTB4aA3S hZGRpbmctbGVm lOtpVA7yXZCwkegeFYCss D4oRGVzP6l7BeFcPiJ1EG fvP2BmRRXebxapJa63vH7 sWoOsWzF5OTpk Q5DkngX1KTKyrBKyZNngZ UE6L39hc0X4PECpZWPjPY P9dSZ0gX6fdCkatsrqsZB mdDsgdmVydGlj DVroPZonK675OMOsuFsbV kNvZGluZyBEYXRlOiAgMD YvMDIvMjAyMzwvdGQ+PHR jCRP1wDroLIRz uMLeQCaoUo6dcSmslEuzA L6xDZNowbedGLBpvU3oXT ZhgHLdwAasBU4uYZVsdxy cn292ZsNxTNS7 XAGivJDrP7TevE3qRxBcO CGiJZAeL9JijGKvQOtoD9 59PYvaUcY2HAKuzjCeY9D sLWFsaWduOiB0 y0H6Kz3Xv4AlxfxvV5Qzl URmPxTbQwirQEt3Z1LsOn wvdHI+FW86LHHpDE13NZw 0LRJ7vMmsCUjq XPQsV1VulY8aJgPxDRCoC GRkOyc+PHRhYmxlIHdpZH RoPScxMDAlJyBzdHlsZT0 dWs9hHZLgLUTa oIqooAGpPyNyw6liIPHhI WyhBZ2jvPdhE1GwlEP4CK Cxo5f2El99W91bG3VjrIA +VZLfnIR9aJY3 sY3uFnXdZrJ5SJwgM996R aPefUAxEpqun3ndu0pixY c0XqQ6LYIdddEfbGnoNCL 3b4RsTu84O73m IHdpZHRoPSIxNSUiIHZhb Iinpr9hnN3rMz5+PGNvbC L8yID3bA2rPqJlNfJ7WFh xE672FrRzaQWa Pwhlr8bwy4jhwQn6TxGfX NVtzbZbqTtiUIQ2x8BrSk 35V5OxeWhsk2HqIpn6jq4 7pOJke2T2zNZ9 U0UeRRXlyuelpKTjjSriR O6jOSRdthzuJMLagS0eVJ FxM1f4SqDqIyH5IOcnV1P yenA7CBKsfKCx YYZejBQXmO4snaajd6qpe vszVpTlZEMdCVo5BAw0MG DrlSxdUrJzGNM9YuQ9NUI 0lIRvvE8hzRdl rxqkgJ5rMxt+RYM4uOWyi XFRES6xEazjfKC+PHRkIH N5fWfsFRvjWBEreN3gKTX lW3i5IyTjYjV1 NHciU8GetdR5RYGgxZKbH TAnmLENwG6zdunvb7hacz efQfJwLTEwAQj0TVy5WOH saWduOiBsZWZ0 KeN5BLW9tPYriM4dbVlix lgbnW9oGdv+QmlydGggRG F6MWy8P4AiQzp9WQLklAm mFT3nhSIzMHiy Sm9hoBgfwCanMW2kQCRaj ncwu667HeDtd4azQTJhjZ EhXNfpQQP2V82lb4J9CHZ fOSMmOWT9sJL8 uN9rgAglbjpfzOTdyKvpo bQmrDtxWUzsDEnhD293KQ MxnGrbYsUpOGa4V6QsPql 3ZTBweIdaMI9u qKTyRTdjVp8sfLzcwZjbZ E6kRRQcgqrnf170KpPvt4 pwPLKzeHSzHNhdCTN5Q16 cl6W8BGEzCSLi HEP9gIV3hN3elGvdzkwhd GVmdDsgdmVydGljYWwtYW lyC235TQBfjFtvNsZcgSx 8O8PuUdz4VXGi hFhoMD8koXNaAGmrKl7bl EnueExpEY5aDBSkdpwks9 74HmYni4tmWTYbbYIqOZn rTYX0Y67ml1O7 DVNlRKFvHDQ8hPS5uJ7fw GlnbjogbGVmdDsgdmVydG xdAPmkRZhrK828EIMjuCn nPlBhdGllbnQg JWejMTf4A8YhFqewmAH+P X32FOKvIV98sTOaqYBqe5 mizQg5XrZkTQXsCOR2zHm jIOcmx8AxHIOf O33xgARwh0S6ARInsTdyp HTbYmVqyRF1eK7fFGpydr otl5tqneqtWkjgu5dovc4 3vG89T97gXUls ZHRoPSIzMCUiIHZhbGlnb d6eaD4jZb3+MRMbbHK4bS L9uZ6bHKEoHlM2CRntI35 9InRvcCIvPjxj l7tsq2ddsCm5ZrC2VYUxa nWnqXdzEVF9p0WfTl47Q5 9sIHdpZHRoPSIyMCUiIHZ cnGkdtp6iaD3a Ii8+LDCinCU6bNT4tS4oG qVqGdE5IDqwT421XiVliE OmZzsaI04pS2PjkYP+PHR tRdl7MGXwkQev QD4tmSCzKSayHl0sOZL8I kXdNpZiZNetE9HmSVLncn ebjcwftOR5FAFjXTDhkO0 3Ik2hyOatDJLa nOCInN6btcsop5xxufxuV nWzARUwHLo7SOg7LTJohR fjDwVxOZG8QfV7QLS8kSG laU1muWwxwdrs aP9yC1HlZLFexkltIu31b K5jHkWpVdG5UIdbKom+SE GNP8ZIBQOMGXZOOPVSWXD MT5TKTXxoxFG+ ALEbREI0uBdwUHaqKYLzu W6tZPUvF4u9VgXrMyN9OX icU6FdHKXnnszjVo85rT2 mAiPsRdJ4UCzn Q4FnzsW9TYXaoGSyPZxgM AA6K63cj0Z8EXWiZNIvVU O3tEP2hX9irEimpksmdXL mdDsgdmVydGlj TUdlCEgmY419TRYomVofV aA0XbP9DwK5DmC5D9HbEi c5HKPcuTmnFH5gzPJvOFt kXz7skLfkiCfi NU5eMOCyzonmOYGpaA6hO IOmpXRerVoxZZ5rZFZrlf oez876KcQcQZN5ZMYdpDK iL8GczQ6lQjHj IAJjJCOhB4JztPCaFEbxO 435GHuqFxH9BMGioaFvZ9 FoHHAxbOnpQwS1c5O1Gn6 1OSBZZWFyczwv dGQ+EKToMUM4zEefNVpvV ACsuN2cDNXyB6t0FrSgOw T6EFwyK9CzAURhdceqSo9 6rI7gBiTcLzG6 HZxiD6IqqhG4UKLerVNiR UqkPWD5O90pg8T9SYZvXG KrEFT5rTV5iU4brWjtgmy gbGVmdDsgdmVy wQarVLvoQWerV011VMZyu BkyWb8NSZK7I3LjYhk1UH RxvDttOL9ioXWrLQtfBx5 owRilgPbtAX3b DBTkbycxGADjgH2iSOTlj CPxbKawRI8lSCSykvkzc5 49TeTyVAO9EKKhjCLnA6B lgN2oExHcSVGk MTBjB2ParIThUApzY333A QleRfW4QLHjkcTaF4StOM QwgQhfHnI4z5M3Ym4OGIn vdGQ+VS07il85 Y6RlYilxGcp5XCVyLGA1d FB8hC3eICDdOIept1R1lB C8A9OcftJdlz0gc3dhHKG sAUkeN53qnMBo k2D8YMOsgUJ4ZPChpQlaI uRysE64Pde+PGNvbGdyb3 SbAgasf6ggi4rvsXt2DzM wJSIgdmFsaWdu ZEO6z1CbQu74V70zCLyqG HRoPSIzMCUiIHZhbGlnbj 6lxV6vVi5+JNPkuJK7cEG 4fA7yInZrDfG0 SFekF486ZyUpcAUtRcnxi 2fwk9cqaUs3KrHqIILsuo OyrJqjYDY7u7DuDq16O4C rgIhgk3EbRtr5 jh47xTGso0E4wJM0Z6LrT PMetvxczJHiqBioGZ3tZW ZqgvwbIRXxbF8tPYIoL2l 6RwNeLbZ0GZvr M3AzosA6QFAiwMLxZBWkk QSOgO4eicouf3dnppilLn YaYYArOXk0HMw3VYDjaCe kBdTyFIZ7JpZ2 OQH7eVMlsV6ngIxixxsbr G9wOyc+EPy4q7qnnKSeFV 0wsCW2YZ57UP66lVOmz0Z 6oKX1M7NvMKZd dzcrvbodjSY2CVPsPZMba M25Wi0baBycHz4fNEIiJM W6JEXcfTFpT5NawM1tDsB pKKVrWQWcI1Yp eLOnHYmuD075SUwwEbF0H OMwzwBsA0SlMXNpdQadNg E3b5W4Vl0ZZT50YM54LX4 7wRPim4J7rFS1 C2PuLNEvkvilbpnbrTW6P THjBBGfxN71Rd9eyPsrBs 9mMRYyEWW5OJYcoSYsH1Z zfN0gCcDoIYDh LPSuQ5KhlRKgYTinL904B MfvAwM1CYYxhxLzJ6KyUF KfyRttCzN8u2G2Hk5QJx9 4LF65PP87qVKa t7D8sDZ7A4FmMUWblxdaj exugAC2WTQgPDLatG90Lj 5qsPelPp6eCLUzHRU8WBJ fdJDvD2ZtlW3x WlKxJSLlYJIjG7IadAEeZ KefQ769MQciGvI4DIRree WfJ5EpALWegZbtYbJ8m4D 8Gu9ZZRyeuvg2 G1ZbNdrygLW+SD86VKZcK I00xUJegMSlw2fliZo9Gz XnZWAhURE7eWlqWSbud4M sNCGxN41ggTWh c2U (more content not included)... Normal [facility] Calculus Analysison 02-27-20 23 Color (Stone) Elbert Invalid Interpretation Code [facility] Comment on above: Performed By: #### 1 [id number] ####[facility] [address] [place] [id number] Composition Comment Invalid Interpretation Code [facility] Comment on above: Result Comment: Perc entage (Represents the % composition) Performed By: #### 1 [id number] ####[facility] [address] [place] [address] Disclaimer: Comment Invalid Interpretation Code [facility] Comment on above: Result Comment: This test was developed and its performance characteristics determined by [facility]. It has not been cleared or approved by the Food and Drug Administration. Performed at: [facility] Stone Analysis [address] [place] [address] Dr [place], [place] [id number] PhD Sahra Helton Performed By: #### 1 [id number] ####[facility] [address] [place] [address] Laboratory comment Lazaro (Report) Comment Invalid Interpretation Code [facility] Comment on above: Result Comment: Trav nguyen questions regarding Calculi Analysis contact [facility] at: [phone]. Performed By: #### 1 [id number] ####[facility] [address] [place] [address] Please Note: Comment Invalid Interpretation Code [facility] Comment on above: Result Comment: Calc cheikh report will follow via computer, mail or rolloff truck driver delivery. Performed By: #### 1 [id number] ####[facility] [address] [place] [address] Size (Stone) [Entitic vol] 3x5 Invalid Interpretation Code [facility] Comment on above: Result Comment: Sing le piece received. Performed By: #### 1 [id number] ####[facility] [address] [place] [address] Specimen source subject Nom Comment Invalid Interpretation Code [facility] Comment on above: Result Comment: Not provided Performed By: #### 1 [id number] ####[facility] [address] [place] [address] Stone Photo Comment Invalid Interpretation Code [facility] Comment on above: Result Comment: Phot ograph will follow under a separate cover Performed By: #### 1 [id number] ####[place] [id number] [place] [address] Urate (Stone) [Mass fraction] 100 % Invalid Interpretation Code [facility] Comment on above: Performed By: #### 1 [id number] ####[facility] [address] [place] [address] Weight (Stone) 35 mg Invalid Interpretation Code [facility] Comment on above: Performed By: #### 1 [id number] ####[facility] [address] [place] [address] ED Clinical Summaryon 2022 ED Clinical Summary [facility] ? Urgent Care [address] [place], [place] [id number] Clinical Summary PERSON INFORMATION Name: DORIS LUIS Age: 57 Years Sex: MALE : 1965 MRN: Acct#: Visit Reason: Skin problem; FISH HOOK LT THIGH Arrival: 02/26/2023 14:18:24 Discharge: 02/26/2023 15:11:00 LOS: 000 00:53 Check In: 02/26/2023 14:18:24 Checkout: 02/26/2023 15:11:00 Address: [facility] [place] [address] PCP: DELON CABALLERO PROVIDER INFORMATION Provider Role Assigned Unassigned ALFIE SLAUGHTER ED PA 02/26/2023 14:20:09 Ivan Pringle CABLE RESPOOLER Nurse 02/26/2023 14:20:24 Asya Luther CABLE RESPOOLER Nurse 02/26/2023 14:30:49 VITALS INFORMATION Vital Sign [...] distress: No -Vitals: reviewed. SKIN: -Gross abnormalities: Buell appreciated in the left medial lower thigh just above the knee NECK: -Supple (tjgp-yn-gokcv): non-tender. CARD: -Rate and rhythm: Regular RESP: [...] Fish hook injury of left lower leg ([id number] S89.92XA). Orders Orders Patient Care: Wound Care [...] Adult Follow-Up: With: Address: When: DELON CABALLERO [address] [place] [address] [address] [place] [id number] Business (1) Within 3 to 5 days DIAGNOSIS: Fish hook injury of left lower leg Patient Understands: Yes - Patient/family/caregi josee verbalizes understanding of instructions given Comment: [facility] ED Note - Physicianon 2022 ED [...] distress: No -Vitals: reviewed. SKIN: -Gross abnormalities: Buell appreciated in the left medial lower thigh just above the knee NECK: -Supple (lssz-ke-brqoc): non-tender. CARD: -Rate and rhythm: Regular RESP: [...] Fish hook injury of left lower leg ([id number] S89.92XA). Orders Orders Patient Care: Wound Care [...] [Verified on: 02/26/2023 14:57 EDT] ALFIE SLAUGHTER [facility] ED Patient Summaryon 023 ED Patient Summary [facility] ? Urgent Care [address] [place] [id number] PATIENT DISCHARGE INSTRUCTIONS Patient Information Name: DORIS LUIS Age: 57 Years Date of : 1965 [facility]: [id number] Reason For Visit: Skin problem; FISH HOOK LT THIGH Arrival Time: 02/26/2023 14:18:24 Primary Care Physician: DELON CABALLERO Attending Physician: ALFIE SLAUGHTER Comment: Patient Education With: Address: When: DELON ADA [address] [place] [address] [place] [id number] Business (1) Within 3 to 5 days [...] at home: Medicines ? 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 ? Change your dressing as told by [...] washing o (more content not included)... Normal [facility] [address] 023 Urgent Care Record [facility] ? Urgent Care [address] [place] [address] PATIENT DISCHARGE INSTRUCTIONS Patient Information Name: DORIS LUIS Age: 57 Years Date of : 1965 Reason For Visit: Skin problem; FISH HOOK LT THIGH Arrival Time: 02/26/2023 14:18:24 Primary Care Physician: DELON CABALLERO Attending Physician: ALFIE SLAUGHTER Comment: Visit Diagnosis: Diagnoses This Visit Fish hook injury of left lower leg (S89.92XA) Skin problem ([id number]) If you received any narcotics, sedation, or [...] legal documents With: Address: When: DELON CABALLERO [address] [place] [address], [place] [address] Business (1) Within 3 to 5 days Medication Information: The exam and treatment you received today in the [facility] were for an urgent problem and are not intended as complete care. It is important for you to follow up with a doctor, nurse practitioner, or physician?s office services assistant for ongoing care. If your [...] so we can reach you if necessary. [facility] has provided you with a complete list of medications post discharge. Please inform your pantry chef/provider of your visit and for further instruction [...] washing out the (more content not included)... [facility] Historical Records Officeon 02-20-2023 Historical Records Office [id number] .00CD:127 [facility] Physician Referralon 023 Physician Referral [id number] .00CD:127 [facility] Ambulatory Visit Summaryon 0 02-18-2023 Ambulatory Visit Summary DORIS LUIS Siva :1965 Visit Date:02/18/2023 Ambulatory Visit Instructions Your Diagnosis Kidney stone Prostate cancer screening BPH without obstruction/lower urinary tract symptoms Renal cyst Tests Performed Urnls Dip Stick Auto w/o Microscopy POC 82805 US Renal -- Results Pending -- Please [...] EDGAR DANIELLE PA-C Where: [facility] Patient Educationon 02-19-20 Patient Education [...] these instructions at home: Medicines ? Take [id number]-[id number]-stcjhnt and prescription medicines only as told by [...] provider. Document Revised: 05/20/2022 Document Reviewed: 05/20/2022 [employer] Patient Education ? 2022 [employer] Martha [facility] Urology Office/Clinic Noteon 02-18-2023 Urology Office/Clinic [...] E&M of Est. Patient Moderate 30-39 Min 10310 PSA Total Urnls Dip Stick Auto w/o Microscopy POC 55218 US Renal 2. Prostate cancer screening (Z12.5: Encounter for screening for malignant neoplasm of prostate) PSA 07/03/22 - 1.36 will need repeat this fall. order placed. No additional PSA in [facility] system (gets labs annually for PCP but doesn't look like this was included). Ordered: E&M of Est. Patient Moderate 30-39 Min 74911 PSA Total 3. BPH without obstruction/lower urinary tract symptoms (N40.0: Benign prostatic hyperplasia without lower urinary tract symptoms) Pt is currently taking no bladder/prostate medication and is highly satisfied with overall symptom control. No indication for treatment at this time. Continue to monitor. Ordered: E&M of Est. Patient Moderate 30-39 Min 14683 PSA Total 4. Renal cyst (N28.1: Cyst of kidney, acquired) Pt's Renal US shows bilat simple cysts, largest 6cm on right. Ordered: E&M of Est. Patient Moderate 30-39 Min 33603 PSA Total f/u 6 mos w MAKENNA and PSA prior Follow-up With When Contact Information LEIJAH ALLEN, EDGAR Paniagua, URL Within 6 months [address] [facility] [place] [address] [facility] (1) Additional Instructions: Patient Education Kidney Stones, [id number] Problem List/Past Medical History Ongoing Anticoagulated Anxiety [...] Cystoscopy and retrograde pyelography (07/06/2014), Back care, [place] filter, Hemorrhoidectomy, History of knee surgery, Tonsillectomy. [...] 1 cap(s), (more content not included)... Normal [facility] Comment on above: Result Comment: Elec tronically Signed By: ELIJAH ALLEN, EDGAR Paniagua\.br\Date and Time Signed: 02/18/23 15:31 EDT CBC AUTO DIFFon 01-31-2023 BASO # 0.1 103/ul Normal 0.0-0.1 [facility] Comment on above: Performed By: #### P T #### [facility] [address] [place] [address] Dr. Curly Connell Basophils/100 WBC (Bld) 0.9 % Normal 0.2-2.0 [facility] Comment on above: Performed By: #### P T #### [facility] [address] [address] [address] Curly Connell EO # 0.1 103/ul Normal 0.0-0.7 [facility] Comment on above: Performed By: #### P T #### [facility] [address] [address] [address] Curly Connell Eosinophils/100 WBC (Bld) 1.2 % Normal 0.9-7.0 [facility] Comment on above: Performed By: #### P T #### [facility] [address] [address] [address] Curly Connell Erythrocyte distribution width (RBC) [Ratio] 19.1 % Critically high 11.0-15.0 [facility] Comment on above: Performed By: #### P T #### [facility] [address] [place] [address] Dr. Curly Connell Hematocrit (Bld) [Volume fraction] 42.3 % Normal 42.0-54.0 [facility] Comment on above: Performed By: #### P T #### [facility] [address] [place] [address] Dr. Curly Connell Hemoglobin (Bld) [Mass/Vol] 12.1 g/dL Critically low 14.0-18.0 [facility] Comment on above: Performed By: #### P T #### [facility] [address] [place] [address] Dr. Curly Connell IG # 0.02 10e3/ul Normal 0.00-0.03 [facility] Comment on above: Performed By: #### P T #### [facility] [address] [place] [address] Dr. Curly Connell IG % 0.2 % Normal 0.0-0.5 [facility] Comment on above: Performed By: #### P T #### [facility] [address] [place] [address] Dr. Curly Connell LYMPH # 2.2 103/ul Normal 1.2-3.8 [facility] Comment on above: Performed By: #### P T #### [facility] [address] [place] [address] Dr. Curly Connell Lymphocytes/100 WBC (Bld) 24.3 % Normal 20.5-60.0 [facility] Comment on above: Performed By: #### P T #### [facility] [address] [place] [address] Dr. Curly Connell MANUAL DIFF REQ NO Normal [facility] Comment on above: Performed By: #### P T #### [facility] [address] [place] [address] Dr. Curly Connell MCH (RBC) [Entitic mass] 21.1 pg Critically low 25.9-34.0 [facility] Comment on above: Performed By: #### P T #### [facility] [address] [place] [address] Dr. Curly Connell MCHC (RBC) [Mass/Vol] 28.6 g/dL Critically low 29.9-35.2 [facility] Comment on above: Performed By: #### P T #### [facility] [address] [place] [address] Dr. Curly Connell MCV (RBC) [Entitic vol] 73.8 fL Critically low 80.0-94.0 [facility] Comment on above: Performed By: #### P T #### [facility] [address] [place] [address] Dr. Curly Connell MONO # 0.8 103/ul Normal 0.3-0.8 [facility] Comment on above: Performed By: #### P T #### [facility] [address] [place] [address] Dr. Curly Connell Monocytes/100 WBC (Bld) 9.2 % Normal 1.7-12.0 [facility] Comment on above: Performed By: #### P T #### [facility] [address] [place] [address] Dr. Curly Connell NEUT # 5.9 103/ul Normal 1.4-6.5 [facility] Comment on above: Performed By: #### P T #### [facility] [address] [place] [address] Dr. Curly Connell Neutrophils/100 WBC (Bld) 64.2 % Normal 43.0-75.0 [facility] Comment on above: Performed By: #### P T #### [facility] [address] [place] [address] Dr. Curly Connell Platelet mean volume (Bld) [Entitic vol] 10.0 fL Normal 9.5-13.5 [facility] Comment on above: Performed By: #### P T #### [facility] [address] [place] [address] Dr. Curly Connell PLT 340 103/ul Normal 150-450 [facility] Comment on above: Performed By: #### P T #### [facility] [address] [address] [address] Curly Connell RBC 5.73 106/ul Normal 4.70-6.10 [facility] Comment on above: Performed By: #### P T #### [facility] [address] [address] [address] Curly Connell WBC 9.1 103/ul Normal 4.0-11.0 [facility] Comment on above: Performed By: #### P T #### [facility] [address] [place] [address] Dr. Curly Connell GLYCOHEMOGLOBIN A1Con 2022 ADA RECOMMENDATION SEE BELOW Normal [facility] Comment on above: Result Comment: ADA RECOMMENDED LIMIT 4.0 - 6.0 ADA THERAPEUTIC TARGET < 7.0 ACTION SUGGESTED > 7.0 Performed By: #### P T #### [facility] [address] [place] [address] Dr. Curly Connell Glucose [Mass/Vol] 151 mg/dL Normal [facility] Comment on above: Performed By: #### P T #### [facility] [address] [place] [address] Dr. Curly Connell HbA1c (Bld) [Mass fraction] 6.9 % Critically high 4.5-6.2 [facility] Comment on above: Performed By: #### P T #### [facility] [address] [place] [address] Dr. Curly Connell LIPID PROFILEon 01-31-2023 CHOL-HDL RATIO NORM SEE BELOW Normal [facility] Comment on above: Result Comment: 3.3 - 4.4 LOW RISK 4.4 - 7.1 AVERAGE RISK 7.1 - 11.0 MODERATE RISK >11.0 HIGH RISK Performed By: #### P T #### [facility] [address] [place] [address] Dr. Curly Connell Cholesterol [Mass/Vol] 149 mg/dL Normal <=200 [facility] Comment on above: Performed By: #### P T #### [facility] [address] [address] [address] Curly Connell Cholesterol in HDL [Mass/Vol] 41 mg/dL Normal 40-60 [facility] Comment on above: Performed By: #### P T #### [facility] [address] [address] [address] Curly Connell Cholesterol in LDL [Mass/Vol] 77.8 mg/dL Normal [facility] Comment on above: Performed By: #### P T #### [facility] [address] [address] [address] Curly Connell Cholesterol.total/Chol esterol in HDL [Mass ratio] 3.6 {ratio} Normal [facility] Comment on above: Performed By: #### P T #### [facility] [address] [address] [address] Curly Connell HDL NORMAL > or = 60 mg/dl - LO W CARDIOVASCULAR RISK <40 mg/dl - HIGH CARDIOVASCULAR RISK Normal [facility] Comment on above: Performed By: #### P T #### [facility] [address] [address] [address] Curly Connell LDL CALC NORMAL SEE BELOW Normal [facility] Comment on above: Result Comment: <100 mg/dl OPTIMAL 100 - 129 mg/dl NEAR OR ABOVE OPTIMAL 130 - 159 mg/dl BORDERLINE HIGH 160 - 189 mg/dl HIGH >190 mg/dl VERY HIGH Performed By: #### P T #### [facility] [address] [address] [address] Curly Connell Triglyceride [Mass/Vol] 151 mg/dL Critically high <=150 [facility] Comment on above: Performed By: #### P T #### [facility] [address] [address] [address] Curly Connell VLDL CALC 30.2 mg/dL Normal [facility] Comment on above: Performed By: #### P T #### [facility] [address] [address] [address] Curly Connell PROF 14(COMP METB)on 023 Albumin [Mass/Vol] 3.6 g/dL Normal 3.4-5.0 [facility] Comment on above: Performed By: #### P T #### [facility] [address] [place] [address] Dr. Curly Connell Albumin/Globulin [Mass ratio] 0.8 {ratio} Normal [facility] Comment on above: Performed By: #### P T #### [facility] [address] [place] [address] Dr. Curly Connell ALP [Catalytic activity/Vol] 66 U/L Normal 46-116 [facility] Comment on above: Performed By: #### P T #### [facility] [address] [place] [address] Dr. Curly Connell ALT [Catalytic activity/Vol] 21 U/L Normal 16-63 [facility] Comment on above: Performed By: #### P T #### [facility] [address] [place] [address] Dr. Curly Connell Anion gap [Moles/Vol] 9.6 mmol/L Normal [facility] Comment on above: Performed By: #### P T #### [facility] [address] [place] [address] Dr. Curly Connell AST [Catalytic activity/Vol] 15 U/L Normal 15-37 [facility] Comment on above: Performed By: #### P T #### [facility] [address] [place] [address] Dr. Curly Connell Bilirubin [Mass/Vol] 0.4 mg/dL Normal 0.2-1.0 [facility] Comment on above: Performed By: #### P T #### [facility] [address] [place] [address] Dr. Curly Connell Calcium [Mass/Vol] 9.2 mg/dL Normal 8.5-10.1 [facility] Comment on above: Performed By: #### P T #### [facility] [address] [place] [address] Dr. Curly Connell Chloride [Moles/Vol] 106 mmol/L Normal 98-107 [facility] Comment on above: Performed By: #### P T #### [facility] [address] [address] [address] Curly Connell CO2 [Moles/Vol] 28.2 mmol/L Normal 21.0-32.0 [facility] Comment on above: Performed By: #### P T #### [facility] [address] [address] [address] Curly Connell Creatinine [Mass/Vol] 1.23 mg/dL Normal 0.70-1.30 [facility] Comment on above: Performed By: #### P T #### [facility] [address] [address] [address] Curly Connell EGFR-AF KENYAN >60 Normal >=60 [facility] Comment on above: Performed By: #### P T #### [facility] [address] [place] [address] Dr. Curly Connell EGFR-NON AF KENYAN 60 mL/min/1.73m2 Normal >=60 [facility] Comment on above: Performed By: #### P T #### [facility] [address] [place] [address] Dr. Curly Connell Globulin (S) [Mass/Vol] 4.3 g/dL Normal [facility] Comment on above: Performed By: #### P T #### [facility] [address] [address] [address] Curly Connell Glucose [Mass/Vol] 123 mg/dL Critically high 74-106 [facility] Comment on above: Performed By: #### P T #### [facility] [address] [place] [address] Dr. Curly Connell Potassium [Moles/Vol] 4.8 mmol/L Normal 3.5-5.1 [facility] Comment on above: Performed By: #### P T #### [facility] [address] [place] [address] Dr. Curly Connell Protein [Mass/Vol] 7.9 g/dL Normal 6.4-8.2 [facility] Comment on above: Performed By: #### P T #### [facility] [address] [address] [address] Curly Connell Sodium [Moles/Vol] 139 mmol/L Normal 136-145 [facility] Comment on above: Performed By: #### P T #### [facility] [address] [address] [address] Curly Connell Urea nitrogen [Mass/Vol] 25.0 mg/dL Critically high 7.0-18.0 [facility] Comment on above: Performed By: #### P T #### [facility] [address] [address] [address] Curly Connell Urea nitrogen/Creatinine [Mass ratio] 20.3 mg/mg Normal [facility] Comment on above: Performed By: #### P T #### [facility] [address] [place] [address] Dr. Curly Connell PROTIMEon 01-31-2023 INR Coag (PPP) [Relative time] 2.17 {INR} Normal [facility] Comment on above: Performed By: #### P T #### [facility] [address] [place] [address] Dr. Curly Connell INR GUIDELINES SEE BELOW Normal [facility] Comment on above: Result Comment: DAFNE RED INR: 2.0 - 3.0 CONDITIONS NOT LISTED BELOW 2.5 - 3.5 FOR PROSTHETIC HEART VALVE REPLACEMENT 2.5 - 3.5 RECURRENT THROMBOSIS Performed By: #### P T #### [facility] [address] [place] [address] Dr. Curly Connell PT Coag (PPP) [Time] 22.0 s Critically high 9.0-11.6 [facility] Comment on above: Performed By: #### P T #### [facility] [address] [place] [address] Dr. Curly Connell US KIDNEYSon 01-21-2023 US [...] by: EFREM HUMPHREYS Date: 2023-01-21 10:07 Normal [facility] XR KUB 1 VIEWon 01-21-2023 [...] EFREM HUMPHREYS Date: 2023-01-21 10:37 Normal [facility] PROTIMEon 12-30-2022 INR Coag (PPP) [Relative time] 2.16 {INR} Normal [facility] Comment on above: Performed By: #### P T #### [facility] [address] [place] [address] Dr. Curly Connell INR GUIDELINES SEE BELOW Normal [facility] Comment on above: Result Comment: DAFNE RED INR: 2.0 - 3.0 CONDITIONS NOT LISTED BELOW 2.5 - 3.5 FOR PROSTHETIC HEART VALVE REPLACEMENT 2.5 - 3.5 RECURRENT THROMBOSIS Performed By: #### P T #### [facility] [address] [address] [address] Curly Connell PT Coag (PPP) [Time] 21.9 s Critically high 9.0-11.6 [facility] Comment on above: Performed By: #### P T #### [facility] [address] [place] [address] Dr. Curly Otero 10-14-2022 INR Coag (PPP) [Relative time] 2.36 {INR} Normal [facility] Comment on above: Performed By: #### P T #### [facility] [address] [place] [address] Dr. Curly Connell INR GUIDELINES SEE BELOW Normal [facility] Comment on above: Result Comment: DAFNE RED INR: 2.0 - 3.0 CONDITIONS NOT LISTED BELOW 2.5 - 3.5 FOR PROSTHETIC HEART VALVE REPLACEMENT 2.5 - 3.5 RECURRENT THROMBOSIS Performed By: #### P T #### [facility] [address] [place] [address] Dr. Curly Connell PT Coag (PPP) [Time] 23.8 s Critically high 9.0-11.6 [facility] Comment on above: Performed By: #### P T #### [facility] [address] [place] [address] Dr. Curly Otero 09-16-2022 INR Coag (PPP) [Relative time] 1.93 {INR} Normal [facility] Comment on above: Performed By: #### P T #### [facility] [address] [place] [address] Dr. Curly Connell INR GUIDELINES SEE BELOW Normal [facility] Comment on above: Result Comment: DAFNE RED INR: 2.0 - 3.0 CONDITIONS NOT LISTED BELOW 2.5 - 3.5 FOR PROSTHETIC HEART VALVE REPLACEMENT 2.5 - 3.5 RECURRENT THROMBOSIS Performed By: #### P T #### [facility] [address] [place] [address] Dr. Curly Connell PT Coag (PPP) [Time] 20.0 s Critically high 9.0-11.6 [facility] Comment on above: Performed By: #### P T #### [facility] [address] [place] [address] Dr. Curly SANTIAGOIMEjulia 08-07-2022 INR Coag (PPP) [Relative time] 2.68 {INR} Normal [facility] Comment on above: Performed By: #### P T #### [facility] [address] [address] [address] Curly Connell INR GUIDELINES SEE BELOW Normal [facility] Comment on above: Result Comment: DAFNE RED INR: 2.0 - 3.0 CONDITIONS NOT LISTED BELOW 2.5 - 3.5 FOR PROSTHETIC HEART VALVE REPLACEMENT 2.5 - 3.5 RECURRENT THROMBOSIS Performed By: #### P T #### [facility] [address] [address] [address] Curly Connell PT Coag (PPP) [Time] 27.1 s Critically high 9.0-11.6 [facility] Comment on above: Performed By: #### P T #### [facility] [address] [address] ABD/PELVIS WO CONon [...] by: MASON NESBITT Date: 2022-07-17 19:16 Normal [facility] US KIDNEYSon 07-01-2022 US KIDNEYS [...] [place] Date: 2022-07-01 09:02 Normal [facility] XR KUB 1 VIEWon 07-01-2022 XR [...] EFREM HUMPHREYS Date: 2022-07-01 16:28 Normal [facility] PROTIMEon 06-25-2022 INR Coag (PPP) [Relative time] 2.60 {INR} Normal [facility] Comment on above: Performed By: #### P T #### [facility] [address] [place] [address] Dr. Curly Connell INR GUIDELINES SEE BELOW Normal [facility] Comment on above: Result Comment: DAFNE RED INR: 2.0 - 3.0 CONDITIONS NOT LISTED BELOW 2.5 - 3.5 FOR PROSTHETIC HEART VALVE REPLACEMENT 2.5 - 3.5 RECURRENT THROMBOSIS Performed By: #### P T #### [facility] [address] [place] [address] Dr. Curly Connell PT Coag (PPP) [Time] 26.4 s Critically high 9.0-11.6 [facility] Comment on above: Performed By: #### P T #### [facility] [address] [place] [address] Dr. Curly Connell PROTIMEon 06-05-2022 INR Coag (PPP) [Relative time] 3.62 {INR} Normal [facility] Comment on above: Performed By: #### P T #### [facility] [address] [place] [address] Dr. Curly Connell INR GUIDELINES SEE BELOW Normal [facility] Comment on above: Result Comment: DAFNE RED INR: 2.0 - 3.0 CONDITIONS NOT LISTED BELOW 2.5 - 3.5 FOR PROSTHETIC HEART VALVE REPLACEMENT 2.5 - 3.5 RECURRENT THROMBOSIS Performed By: #### P T #### [facility] [address] [place] [address] Dr. Curly Connell PT Coag (PPP) [Time] 35.9 s Critically high 9.0-11.6 [facility] Comment on above: Performed By: #### P T #### [facility] [address] [place] [address] Dr. Curly Connell PROTIMEon 05-24-2022 INR Coag (PPP) [Relative time] 2.56 {INR} Normal [facility] Comment on above: Performed By: #### P T #### [facility] [address] [address] [address] Curly Connell INR GUIDELINES SEE BELOW Normal [facility] Comment on above: Result Comment: DAFNE RED INR: 2.0 - 3.0 CONDITIONS NOT LISTED BELOW 2.5 - 3.5 FOR PROSTHETIC HEART VALVE REPLACEMENT 2.5 - 3.5 RECURRENT THROMBOSIS Performed By: #### P T #### [facility] [address] [address] [address] Curly Connell PT Coag (PPP) [Time] 26.0 s Critically high 9.0-11.6 [facility] Comment on above: Performed By: #### P T #### [facility] [address] [place] [address] Dr. Curly Connell PROTIMEon 05-15-2022 INR Coag (PPP) [Relative time] 4.22 {INR} Critically high [facility] Comment on above: Performed By: #### P T #### [facility] [address] [place] [address] Dr. Curly Connell INR GUIDELINES SEE BELOW Normal [facility] Comment on above: Result Comment: DAFNE RED INR: 2.0 - 3.0 CONDITIONS NOT LISTED BELOW 2.5 - 3.5 FOR PROSTHETIC HEART VALVE REPLACEMENT 2.5 - 3.5 RECURRENT THROMBOSIS Performed By: #### P T #### [facility] [address] [place] [address] Dr. Curly Connell PT Coag (PPP) [Time] 41.5 s Critically high 9.0-11.6 [facility] Comment on above: Performed By: #### P T #### [facility] [address] [address] [address] Curly Connell PROTIMEon 05-01-2022 INR Coag (PPP) [Relative time] 3.81 {INR} Normal [facility] Comment on above: Performed By: #### P T #### [facility] [address] [place] [address] Dr. Curly Connell INR GUIDELINES SEE BELOW Normal [facility] Comment on above: Result Comment: DAFNE RED INR: 2.0 - 3.0 CONDITIONS NOT LISTED BELOW 2.5 - 3.5 FOR PROSTHETIC HEART VALVE REPLACEMENT 2.5 - 3.5 RECURRENT THROMBOSIS Performed By: #### P T #### [facility] [address] [place] [address] Dr. Curly Connell PT Coag (PPP) [Time] 37.7 s Critically high 9.0-11.6 [facility] Comment on above: Performed By: #### P T #### [facility] [address] [place] [address] Dr. Curly Connell PROTIMEon 04-10-2022 INR Coag (PPP) [Relative time] 2.90 {INR} Normal [facility] Comment on above: Performed By: #### P T #### [facility] [address] [place] [address] Dr. Curly Connell INR GUIDELINES SEE BELOW Normal [facility] Comment on above: Result Comment: DAFNE RED INR: 2.0 - 3.0 CONDITIONS NOT LISTED BELOW 2.5 - 3.5 FOR PROSTHETIC HEART VALVE REPLACEMENT 2.5 - 3.5 RECURRENT THROMBOSIS Performed By: #### P T #### [facility] [address] [place] [address] Dr. Curly Connell PT Coag (PPP) [Time] 29.2 s Critically high 9.0-11.6 [facility] Comment on above: Performed By: #### P T #### [facility] [address] [place] [address] Dr. Curly Connell PROTIMEon 03-28-2022 INR Coag (PPP) [Relative time] 2.52 {INR} Normal [facility] Comment on above: Performed By: #### P T #### [facility] [address] [place] [address] Dr. Curly Connell INR GUIDELINES SEE BELOW Normal [facility] Comment on above: Result Comment: DAFNE RED INR: 2.0 - 3.0 CONDITIONS NOT LISTED BELOW 2.5 - 3.5 FOR PROSTHETIC HEART VALVE REPLACEMENT 2.5 - 3.5 RECURRENT THROMBOSIS Performed By: #### P T #### [facility] [address], [place] [address] Dr. Curly Connell PT Coag (PPP) [Time] 25.6 s Critically high 9.0-11.6 [facility] Comment on above: Performed By: #### P T #### [facility] [address], [place] [address] Dr. Curly Connell PROTIMEon 03-25-2022 INR Coag (PPP) [Relative time] 1.81 {INR} Normal [facility] Comment on above: Performed By: #### P T #### [facility] [address], [place] [address] Dr. Curly Connell INR GUIDELINES SEE BELOW Normal [facility] Comment on above: Result Comment: DAFNE RED INR: 2.0 - 3.0 CONDITIONS NOT LISTED BELOW 2.5 - 3.5 FOR PROSTHETIC HEART VALVE REPLACEMENT 2.5 - 3.5 RECURRENT THROMBOSIS Performed By: #### P T #### [facility] [id number] Curly Connell PT Coag (PPP) [Time] 18.8 s Critically high 9.0-11.6 [facility] Comment on above: Performed By: #### P T #### [facility] [id number] Curly Connell Cardiovascular Lab Reporton 03-21-2022 Cardiovascular Lab Report [facility] Patient Name: Janelle [facility] E MR #: [id number] Department of Physician: Brian Byrne M.D. Division of Service Date: 03/20/2022 Cardiology Birthdate: 1965 Adult Cardiovascular Room #: [place] [address] Cardiovascular Laboratory Report FINAL IMPRESSIONS: 1. Moderate [...] pain, namely gastrointestinal. 4. Follow up with [facility] Cardiology in the next 1 to [...] Cormier M.D. Date Trans: 03/21/2022 12:17 A/bouchra [id number] cc: Shania Bhat, MSN, ASSOCIATE QUALITY ENGINEER-C Department Of Surgery [address] [facility] [address] Delon Caballero M.D. [address] [facility] [place] [facility] [address] Normal [facility] CBC AUTO DIFFon 03-18-2022 BASO # 0.1 103/ul Normal 0.0-0.1 [facility] Comment on above: Performed By: #### C BC #### [facility] [address] [place] [address] Dr. Curly Connell Basophils/100 WBC (Bld) 0.8 % Normal 0.2-2.0 [facility] Comment on above: Performed By: #### C BC #### [facility] [address] [place] [address] Dr. Curly Connell EO # 0.1 103/ul Normal 0.0-0.7 [facility] Comment on above: Performed By: #### C BC #### [facility] [address] [address] [address] Curly Connell Eosinophils/100 WBC (Bld) 1.1 % Normal 0.9-7.0 [facility] Comment on above: Performed By: #### C BC #### [facility] [address] [place] [address] Dr. Curly Connell Erythrocyte distribution width (RBC) [Ratio] 20.7 % Critically high 11.0-15.0 [facility] Comment on above: Performed By: #### C BC #### [facility] [address] [place] [address] Dr. Curly Connell Hematocrit (Bld) [Volume fraction] 45.3 % Normal 42.0-54.0 [facility] Comment on above: Performed By: #### C BC #### [facility] [address] [place] [address] Dr. Curly Connell Hemoglobin (Bld) [Mass/Vol] 13.5 g/dL Critically low 14.0-18.0 [facility] Comment on above: Performed By: #### C BC #### [facility] [address] [place] [address] Dr. Curly Connell IG # 0.02 10e3/ul Normal 0.00-0.03 [facility] Comment on above: Performed By: #### C BC #### [facility] [address] [place] [address] Dr. Curly Connell IG % 0.2 % Normal 0.0-0.5 [facility] Comment on above: Performed By: #### C BC #### [facility] [address] [place] [address] Dr. Curly Connell LYMPH # 1.9 103/ul Normal 1.2-3.8 [facility] Comment on above: Performed By: #### C BC #### [facility] [address] [place] [address] Dr. Curly Connell Lymphocytes/100 WBC (Bld) 23.4 % Normal 20.5-60.0 [facility] Comment on above: Performed By: #### C BC #### [facility] [address] [place] [address] Dr. Curly Connell MANUAL DIFF REQ NO Normal [facility] Comment on above: Performed By: #### C BC #### [facility] [address] [place] [address] Dr. Curly Connell MCH (RBC) [Entitic mass] 23.0 pg Critically low 25.9-34.0 [facility] Comment on above: Performed By: #### C BC #### [facility] [address] [address] [address] Curly Connell MCHC (RBC) [Mass/Vol] 29.8 g/dL Critically low 29.9-35.2 [facility] Comment on above: Performed By: #### C BC #### [facility] [address] [address] [address] Curly Connell MCV (RBC) [Entitic vol] 77.2 fL Critically low 80.0-94.0 [facility] Comment on above: Performed By: #### C BC #### [facility] [address] [place] [address] Dr. Curly Connell MONO # 0.6 103/ul Normal 0.3-0.8 [facility] Comment on above: Performed By: #### C BC #### [facility] [address] [place] [address] Dr. Curly Connell Monocytes/100 WBC (Bld) 7.7 % Normal 1.7-12.0 [facility] Comment on above: Performed By: #### C BC #### [facility] [address] [place] [address] Dr. Curly Connell NEUT # 5.5 103/ul Normal 1.4-6.5 [facility] Comment on above: Performed By: #### C BC #### [facility] [address] [place] [address] Dr. Curly Connell Neutrophils/100 WBC (Bld) 66.8 % Normal 43.0-75.0 [facility] Comment on above: Performed By: #### C BC #### [facility] [address] [address] [address] Curly Connell Platelet mean volume (Bld) [Entitic vol] 9.8 fL Normal 9.5-13.5 [facility] Comment on above: Performed By: #### C BC #### [facility] [address] [address] [address] Curly Connell PLT 337 103/ul Normal 150-450 [facility] Comment on above: Performed By: #### C BC #### [facility] [address] [place] [address] Dr. Curly Connell RBC 5.87 106/ul Normal 4.70-6.10 [facility] Comment on above: Performed By: #### C BC #### [facility] [address] [place] [address] Dr. Curly Connell WBC 8.3 103/ul Normal 4.0-11.0 [facility] Comment on above: Performed By: #### C BC #### [facility] [address] [place] [address] Dr. Curly Connell Covid-19 PCR (CVDTBH)on 02-28 SARS-CoV-2 (COVID-19) RNA MARCELLO+probe Ql (Unsp spec) Not detected Normal NOT DETECTED [facility] Comment on above: Result Comment: This test is not yet approved or cleared by the [place] FDA. When there are no FDA-approved or cleared tests available, and other criteria are met, FDA can make tests available under an emergency access mechanism called an Emergency Use Authorization (EUA). The EUA for this test is supported by the [place] of Health and Human Service's (HHS's) declaration [...] SARS-CoV-2. Performed By: #### C VDTBH #### [facility] [address] [place] [address] Dr. Curly Connell PROF CHEM 8 (BAS METB)on Anion gap [Moles/Vol] 12.9 mmol/L Normal [facility] Comment on above: Performed By: #### P T #### [facility] [address] [address] [address] Curly Connell Calcium [Mass/Vol] 9.1 mg/dL Normal 8.5-10.1 [facility] Comment on above: Performed By: #### P T #### [facility] [address] [address] [address] Curly Connell Chloride [Moles/Vol] 105 mmol/L Normal 98-107 [facility] Comment on above: Performed By: #### P T #### [facility] [address] [address] [address] Curly Connell CO2 [Moles/Vol] 26.0 mmol/L Normal 21.0-32.0 [facility] Comment on above: Performed By: #### P T #### [facility] [address] [address] [address] Curly Connell Creatinine [Mass/Vol] 1.34 mg/dL Critically high 0.70-1.30 [facility] Comment on above: Performed By: #### P T #### [facility] [address] [address] [address] Curly Connell EGFR-AF KENYAN >60 Normal >=60 [facility] Comment on above: Performed By: #### P T #### [facility] [address] [place] [address] Dr. Curly Connell EGFR-NON AF KENYAN 55 mL/min/1.73m2 Critically low >=60 [facility] Comment on above: Performed By: #### P T #### [facility] [address] [address] [address] Curly Connell Glucose [Mass/Vol] 122 mg/dL Critically high 74-106 [facility] Comment on above: Performed By: #### P T #### [facility] [address] [address] [address] Curly Connell Potassium [Moles/Vol] 4.9 mmol/L Normal 3.5-5.1 [facility] Comment on above: Performed By: #### P T #### [facility] [address] [address] [address] Curly Connell Sodium [Moles/Vol] 139 mmol/L Normal 136-145 [facility] Comment on above: Performed By: #### P T #### [facility] [address] [place] [address] Dr. Curly Connell Urea nitrogen [Mass/Vol] 26.0 mg/dL Critically high 7.0-18.0 [facility] Comment on above: Performed By: #### P T #### [facility] [address] [address] [address] Curly Connell Urea nitrogen/Creatinine [Mass ratio] 19.4 mg/mg Normal [facility] Comment on above: Performed By: #### P T #### [facility] [address] [place] [address] Dr. Curly Connell PROTIMEon 03-12-2022 INR Coag (PPP) [Relative time] 2.73 {INR} Normal [facility] Comment on above: Performed By: #### P T #### [facility] [address] [place] [address] Dr. Curly Connell INR GUIDELINES SEE BELOW Normal [facility] Comment on above: Result Comment: DAFNE RED INR: 2.0 - 3.0 CONDITIONS NOT LISTED BELOW 2.5 - 3.5 FOR PROSTHETIC HEART VALVE REPLACEMENT 2.5 - 3.5 RECURRENT THROMBOSIS Performed By: #### P T #### [facility] [address] [place] [address] Dr. Curly Connell PT Coag (PPP) [Time] 27.6 s Critically high 9.0-11.6 [facility] Comment on above: Performed By: #### P T #### [facility] [address] [place] [address] Dr. Curly Connell NM STRESS/REST MULTIon 03-07 NM STRESS/REST MULTI Patient: DORIS LUIS Exam Date: 03/07/2022 : 1965 Gender:M Ordering : DR DELON CABALLERO . Admission #: [id number] Family : Order #: [id number] CLICK HERE TO VIEW EXAM RADIOLOGY REPORT [...] Humphreys MD on 03/08/2022 at 11:55 Normal [facility] ECHOCARDIO M/2D COMPLETEon 0 02-20-2022 ECHOCARDIO M/2D COMPLETE Patient: DORIS LUIS Exam Date: 02/20/2022 : 1965 Gender:M Ordering : DR DELON CABALLERO . Admission #: [id number] Family : Order #: [id number] CLICK HERE TO VIEW EXAM ECHOCARDIOGRAM REPORT [...] Pepe M.D. on 02/21/2022 at 12:46 Normal [facility] PROTIMEon 02-13-2022 INR Coag (PPP) [Relative time] 2.92 {INR} Normal [facility] Comment on above: Performed By: #### P T #### [facility] [address] [place] [address] Dr. Curly Connell INR GUIDELINES SEE BELOW Normal [facility] Comment on above: Result Comment: DAFNE RED INR: 2.0 - 3.0 CONDITIONS NOT LISTED BELOW 2.5 - 3.5 FOR PROSTHETIC HEART VALVE REPLACEMENT 2.5 - 3.5 RECURRENT THROMBOSIS Performed By: #### P T #### [facility] [address], [place] [address] Dr. Curly Connell PT Coag (PPP) [Time] 29.4 s Critically high 9.0-11.6 [facility] Comment on above: Performed By: #### P T #### [facility] [id number] Curly Connell CHEMISTRYOrdered By: Lab ROP User on 01-17-2022 Glucose [Mass/Vol] 121 mg/dL High 55 - 99 mg/dL [facility] [place] POC Subsection Comment on above: Result Comment: Asael thompson RN/ POC Device SN [id number] Invalid Interpretation Code [facility] [place] POC Subsection POC User ID [id number] Invalid Interpretation Code [facility] [place] POC Subsection POC Username SHANIKA ORTIZ Invalid Interpretation Code [facility] [place] POC Subsection COAGULATIONOrdered By: Efrem Moscoso on 01-17-2022 aPTT Coag (PPP) [Time] 36.2 s Normal 25.1 - 36.5 second(s) [facility] [place] Auto Coag INR Coag (PPP) [Relative time] 1.1 {INR} Invalid Interpretation Code [facility] [place] Auto Coag PT Coag (PPP) [Time] 13.4 s High 10.2 - 12.9 second(s) [facility] [place] Auto Coag CHEMISTRYOrdered By: Efrem soria on 01-11-2022 Anion gap [Moles/Vol] 12 mmol/L Normal 6 - 16 mEq/L [facility] [place] Remisol Calcium [Mass/Vol] 9.1 mg/dL [...] 138 mmol/L Normal 135 - 145 mmol/L [facility] [place] Remisol Urea nitrogen [Mass/Vol] 17 mg/dL Normal 5 - 21 mg/dL [facility] [place] Remisol Urea nitrogen/Creatinine [Mass ratio] 17 mg/mg Normal 10 - 20 [facility] [place] Remisol CHEMISTRYOrdered By: SYSTEM SYSTEM on 01-11-2022 GFR/1.73 sq M.predicted among blacks MDRD (S/P/Bld) [Vol rate/Area] mL/min/1.73 m2 Normal >=59mL/min/1 .73 m2 [facility] [place] Chem S GFR/1.73 sq M.predicted among non-blacks MDRD (S/P/Bld) [Vol rate/Area] mL/min/1.73 m2 Normal >=59mL/min/1 .73 m2 [facility] [place] Chem S COAGULATIONOrdered By: Jomar Cheema on 01-11-2022 aPTT Coag (PPP) [Time] 43.3 s High 25.1 - 36.5 second(s) [facility] Auto Coag INR Coag (PPP) [Relative time] 3.0 {INR} Invalid Interpretation Code [facility] Auto Coag PT Coag (PPP) [Time] 35.7 s High 10.2 - 12.9 second(s) [facility] [place] Auto Coag HEMATOLOGYOrdered By: SYSTEM SYSTEM on [...] Present (01/11/22 1:18 PM) Normal [facility] Platelet mean volume (Bld) [Entitic vol] 8.8 fL Normal 6.4 - 10.8 fL [facility] HemeAutoSS Platelets (Bld) [#/Vol] 275.0 E9/L Normal 150.0 - 500.0 E9/L [facility] HemeAutoSS RBC (Bld) [#/Vol] 5.3 E12/L Normal 4.3 - 5.9 E12/L [facility]eAutoSS WBC corrected for nucl RBC Auto [...] PM) Normal Negative [facility] UA Auto SS [place].plasma/[place] .RBC (Bld) [Mass ratio] 0-3 /HPF Normal [...] [facility] UA Auto SS Urobilinogen Qn (U) 0.0704142 {Rashida'U}/dL Normal 0.0 - 1.0 EU/dL [facility] UA Auto SS WBC Auto Ql (U) Negative (01/11/22 1:18 PM) Normal Negative [facility] [place] UA Auto SS WBC LM.HPF (Urine sed) [#/Area] 0-5 /HPF Normal 0-5/HPF [facility] [place] UA Auto SS OPERATIVE REPORTon 9 OPERATIVE REPORT [address] [id number] OPERATIVE REPORT PATIENT NAME: DORIS LUIS : 1965 MED REC NO: [id number] ROOM: [facility] ACCOUNT NO: [id number] ADMIT DATE: 01/18/2019 PROVIDER: Efrem Matson DATE [...] little over 2 months. He has tried childcare provider without benefit and imaging demonstrates the presence [...] small incision in the fascia, and the [employer] tube dilator system was used to dilate [...] evidence of complication. EFREM MATSON [id number] Doc#: [id number] CC: Normal [facility] APTTon 01-18-2019 aPTT Coag time (Bld) 19.5 s Low 20.5-30.5 [facility] Comment on above: Result Comment: No c lot found in specimen, results questionable. TEST CONFIRMED Performed By: #### P T, PTT #### [address] [address] Mri Specialist: Panchito Nguyen MD PTon 01-18-2019 INR Coag RelTime (PPP) 0.9 {INR} Normal [facility] Comment on above: Result Comment: Therapeutic Range: Moderate Anticoagulant Intensity: INR = 2.0-3.0 High Anticoagulant Intensity: INR = 2.5-3.5 No clot found in specimen, results questionable. Performed By: #### P T, PTT #### [address] [id number] Mri Specialist: Panchito Nguyen MD Prothrombin time (PT) Coag time (PPP) 9.5 s Normal 9.0-12.0 [facility] Comment on above: Result Comment: No c lot found in specimen, results questionable. Performed By: #### P T, PTT #### [facility] [employer] [address] [place] [address] Mri Specialist: Panchito Nguyen MD Type + Screenon 01-18-2019 Type + Screen Sample Expiration 01/21/2019 Arm Band Number [id number] ABO/Rh(D) A POSITIVE Antibody Screen NEGATIVE Normal [facility] Comment on above: Performed By: #### T YS #### [facility] [employer] [address] [place] [address] Mri Specialist: Panchito Nguyen MD XR LUMBAR SPINE (2-3 [...] Anup Guerrero MD 01/18/19 Final result Normal [facility] Vital Signs Date Time Vital Sign Value Performing Clinician Facility 12-30-2023 11:17-0400 Blood Pressure Location [facility] 12-30-2023 11:17-040 Body temperature 98.42 [degF] [facility] 12-30-2023 11:17-0400 Diastolic blood pressure 88 mm[Hg] [facility] 12-30-2023 11:17-0400 Heart rate 83 /min Elsy Orzech [facility] 12-30-2023 11:17-0400 Respiratory rate 16 /min Elsy Orzech [facility] 12-30-2023 11:17-0400 Systolic blood pressure 122 mm[Hg] Elsy Orzech [facility] 08-29-2023 13:46-0500 Blood Pressure Location [facility] 08-29-2023 13:46-0500 Diastolic blood pressure 78 mm[Hg] [facility] 08-29-2023 13:46-0500 Heart rate 72 /min [facility] 08-29-2023 13:46-0500 Respiratory rate 16 /min [facility] 08-29-2023 13:46-0500 Systolic blood pressure 126 mm[Hg] [facility] 03-12-2023 14:22-0400 Blood Pressure Location [facility] 03-12-2023 14:22-0400 Diastolic blood pressure 78 mm[Hg] [facility] 03-12-2023 14:22-0400 Heart rate 72 /min Jam[facility] 03-12-2023 14:22-0400 Respiratory rate 16 /min Jamil [facility] 03-12-2023 14:22-0400 Systolic blood pressure 126 mm[Hg] Jam[facility] 07-03-2022 13:18-0400 Blood Pressure Location EDGAR DANIELLE [facility] 07-03-2022 13:18-0400 Diastolic blood pressure 76 mm[Hg] EDGAR DANIELLE [facility] 07-03-2022 13:18-0400 Heart rate 62 /min EDGAR CORADORY [facility] 07-03-2022 13:18-0400 Systolic blood pressure 128 mm[Hg] EDGAR DANIELLE [facility] 01-17-2022 12:56-0400 Blood Pressure Location [facility] 01-17-2022 12:56-0400 BP/Pulse Patient Position [facility] 01-17-2022 12:56-0400 Diastolic blood pressure 79 mm[Hg] [facility] 01-17-2022 12:56-0400 Heart rate 50 /min [facility] 01-17-2022 12:56-0400 Mean blood pressure 94 mm[Hg] [facility] 01-17-2022 12:56-0400 SaO2% (BldA) [Mass fraction] 96 % [facility] 01-17-2022 12:56-0400 Systolic blood pressure 125 mm[Hg] [facility] 01-17-2022 12:56-0400 Body temperature 97.52 [degF] [facility] 01-17-2022 12:01-0400 Blood Pressure Location [facility] 01-17-2022 12:01-0400 BP/Pulse Patient Position [facility] 01-17-2022 12:01-0400 Diastolic blood pressure 83 mm[Hg] [facility] 01-17-2022 12:01-0400 Heart rate 49 /min [facility] 01-17-2022 12:01-0400 Mean blood pressure 98 mm[Hg] [facility] 01-17-2022 12:01-0400 Respiratory rate 16 /min [facility] 01-17-2022 12:01-0400 SaO2% (BldA) [Mass fraction] 94 % [facility] 01-17-2022 12:01-0400 Systolic blood pressure 129 mm[Hg] [facility] 01-17-2022 12:01-0400 Body temperature 97.34 [degF] [facility] 01-17-2022 11:55-0400 Blood Pressure Location [facility] 01-17-2022 11:55-0400 Body temperature 97.34 [degF] [facility] 01-17-2022 11:55-0400 Diastolic blood pressure 81 mm[Hg] [facility] 01-17-2022 11:55-0400 Heart rate 50 /min [facility] [facility] 11:55-0400 Respiratory rate 12 /min David Pacheco Jr. [facility] 01-17-2022 11:55-0400 SaO2% (BldA) [Mass fraction] 97 % David Pacheco Jr. [facility] 01-17-2022 11:55-0400 Systolic blood pressure 126 mm[Hg] David Pacheco Jr. [facility] 01-17-2022 11:40-0400 Respiratory rate 16 /min David Pacheco Jr. [facility] 01-17-2022 11:25-0400 Respiratory rate 18 /min David Pacheco Jr. [facility] 01-17-2022 11:00-0400 Respiratory rate 25 /min David Pacheco Jr. [facility] 01-17-2022 10:55-0400 Respiratory rate 26 /min David Pacheco Jr. [facility] 01-17-2022 08:12-0400 gluc 121 mg/dL David Pacheco Jr. [facility] 01-17-2022 07:52-0400 Body temperature 97.7 [degF] David Pacheco Jr. [facility] 01-17-2022 07:52-0400 BP/Pulse Patient Position David Pacheco Jr. [facility] 01-17-2022 07:52-0400 Mean blood pressure 95 mm[Hg] David Pacheco Jr. [facility] 01-17-2022 07:52-0400 Heart rate 48 /min David Pacheco Jr. [facility] 01-11-2022 12:42-0400 Diastolic blood pressure 81 mm[Hg] David Pacheco Jr. [facility] 01-11-2022 12:42-0400 Heart rate 44 /min David Pacheco Jr. [facility] 01-11-2022 12:42-0400 Mean blood pressure 97 mm[Hg] David Pacheco Jr. [facility] 01-11-2022 12:42-0400 Respiratory rate 16 /min David Pacheco Jr. [facility] 01-11-2022 12:42-0400 SaO2% (BldA) [Mass fraction] 98 % David Pacheco Jr. [facility] 01-11-2022 12:42-0400 Systolic blood pressure 131 mm[Hg] David Pacheco Jr. [facility] 01-11-2022 12:42-0400 Blood Pressure Location David Pacheco Jr. [facility] 01-11-2022 12:42-0400 Body temperature 97.7 [degF] David Pacheco Jr. [facility] 01-11-2022 12:40-0400 Blood Pressure Location David Pacheco Jr. [facility] 01-11-2022 12:40-0400 Diastolic blood pressure 90 mm[Hg] David Pacheco Jr. [facility] 01-11-2022 12:40-0400 Heart rate 46 /min David Pacheco Jr. [facility] 01-11-2022 12:40-0400 Mean blood pressure 108 mm[Hg] David Pacheco Jr. [facility] 01-11-2022 12:40-0400 Respiratory rate 16 /min David Pacheco Jr. [facility] 01-11-2022 12:40-0400 SaO2% (BldA) [Mass fraction] 98 % David Pacheco Jr. [facility] 01-11-2022 12:40-0400 Systolic blood pressure 144 mm[Hg] David Pacheco Jr. [facility] Encounters Encounter Date Encounter Type Care Provider Facility Start: 08-03-2024 End: 08-03-2024 ambulatory [facility] Start: 02-10-2024 End: 02-11-2024 ambulatory Elsy X Orzech Facility:[facility] Start: 02-10-2024 End: 02-10-2024 Patient encounter procedure Elsy X Orzech [facility] Start: 12-30-2023 End: 12-31-2023 ambulatory Elsy X Orzech Facility:[facility] [place] Start: 12-30-2023 End: 12-31-2023 ambulatory Elsy X Orzech Facility:[facility] Start: 12-30-2023 End: 12-30-2023 Lab Drop off Elsy X Orzech [facility] Start: 12-30-2023 End: 12-30-2023 Patient encounter procedure Elsy X Orzech [facility] Start: 09-17-2023 End: 09-18-2023 ambulatory Jamil DE LUNA Facility:CD:[id number] Start: 09-14-2023 Chart abstracting Generic Exte rnal Data Provider GENERIC EXTERNAL DATA DEPARTMENT Start: 08-29-2023 End: 08-30-2023 ambulatory Jamil R NILL Facility:[facility] Start: 08-29-2023 End: 08-29-2023 Patient encounter procedure Jamil R NILL [facility] Start: 08-14-2023 End: 08-14-2023 ambulatory [facility] Start: 03-12-2023 End: 03-13-2023 ambulatory Jamil R NILL Facility: [facility] Start: 03-12-2023 End: 03-12-2023 Patient encounter procedure Jamil R NILL General Surgery [facility] Start: 02-26-2023 End: 02-26-2023 ambulatory ALFIE RAZA Facility:[facility] Start: 02-19-2023 ambulatory Delon Caballero Facility: [facility] Start: 02-18-2023 End: 02-19-2023 ambulatory PA-C EDGAR DANIELLE Facility:[facility] [place] Start: 02-18-2023 End: 02-19-2023 ambulatory PAMarichuy DANIELLE Facility: [facility] Start: 02-04-2023 End: 02-05-2023 ambulatory SHANIA BHAT Facility: Start: 01-31-2023 End: 02-01-[address] DELON CABALLERO . Facility:[facility] Start: 01-21-2023 End: 01-22-2023 ambulatory EDGAR DANIELLE [...] encounter procedure EDGAR DANIELLE [facility] Start: 07-01-2022 End: 07-02-2022 ambulatory EDGAR DANIELLE Facility:[facility] Start: 06-29-[address] DELON [...] Start: 03-20-2022 End: 03-21-2022 ambulatory DAGOBERTO CORMIER Facility:[facility] Start: 03-18-2022 End: 03-19-2022 ambulatory SHANIA BHAT Facility:[facility] Start: 03-07-2022 End: 03-29-[address] DELON CABALLERO . Facility:[facility] Start: 03-07-2022 End: 03-08-[address] DELON CABALLERO . Facility:[facility] Start: 02-20-2022 End: 02-21-[address] DELON CABALLERO . Facility:[facility] Start: 01-17-2022 End: 01-17-2022 Admission to same day surgery center David Pacheco Jr. [facility] Start: 01-11-2022 End: 01-11-2022 Patient encounter procedure David Pacheco Jr. [facility] Start: 12-25-2021 End: 12-25-2021 Patient encounter procedure David Pacheco Jr. [facility] Start: 01-18-2019 End: 01-19-2019 Patient encounter procedure EFREM Garza MANUELA [facility] Procedures Date Procedure Procedure Detail Performing Clinician Start: 12-13-2023 Echography of kidney Au mariza England Start: 07-03-[address] SONIDO CABALLERO . Comment on above: Performed By: #### P T #### [facility] [address] [place] [address] Dr. Curly Connell Start: 01-17-2022 Fluoroscopy guided extracorporeal shockwave lithotripsy of calculus of left ureter David Pacheco Jr. Start: 09-20-2021 Cystoscopy David valdez Comment on above: rt. stent removal,ur eteroscopy,retrogade nephroscopy basket retrieval. Start: 07-10-2021 Cystoscopy David valdez Start: 01-08-2021 Extracorporeal shock wave lithotripsy [...] stent i n cardiac conduit David Pacheco . Start: 01-19-2019 DISCHARGE PATIENT EFREM MATSON Start: [...] Jamil ELIZABETH Extraction of cataract Heladio el NILL Angela filter, d evice (physical object) David Pacheco Jr. Angela filter, d evice (physical object) David Pacheco Jr. Hemorrhoidectomy David Anson lyons Jr. History of operative procedure on knee David Junior Mccollum History of operative procedure on lumbar spinal structure Jamil DE LUNA Removal of thrombus Jamil DE LUNA Repair of meniscus Jamil ELIZABETH Special back care David Jono valdez Jr. Tonsillectomy David Junior bradley Plan of Treatment Date Care Activity Detail Author Start: 10-30-2024 Diabetes Screening Diabetes Screenin g [facility] Start: 05-30-2023 Influenza vaccination Influenza Vacc ine (#1) [facility] Start: 2023 RSV Vaccine (1 - 1-d ose 60+ series) RSV Vaccine (1 - 1-dose 60+ series) [facility] Start: 09-29-2022 Depression Assessment Depression Ass essment [facility] Start: 2018 Prostate specific an tigen measurement Prostate Cancer Screening Discussion [facility] Start: 2013 Shingrix Vaccine (1 of 2) Adair grix Vaccine (1 of 2) [facility] Start: 2008 Screening for malign ant neoplasm of colon [facility] Start: 1998 Lipid panel Lipid Screening [facility] Start: 1982 Urine microalbumin profile DTa P,Tdap,Td Vaccine (1 - Tdap) [facility] Start: 1981 Hepatitis C screening Hepatitis C Sc reening [facility] Start: 1981 HIV screening HIV Screening [facility] Start: 1963 Covid-19 Vaccine (#1) Covid-19 Vacci ne (#1) [facility] Immunizations Immunization Date Immunization Notes Care Provider Renzo gatica 02-26-2023 tetanus toxoid, reduced diphtheria toxoid, and acellular pertussis vaccine, adsorbed Elsy England [facility] 08-27-2017 influenza, unspecifi ed formulation EDGAR DANIELLE [facility] 08-27-2017 influenza virus vaccine, unspecified formulation Generic Provider [facility] 06-26-2016 influenza, unspecifi ed formulation EDGAR DANIELLE [facility] NEGATED: Highlighted row has not occurred!08-29-2023 influenza virus vaccine, unspecified formulation Jamil DE LUNA [facility] Payers Date Payer Category Payer Medicare MEDICARE MEDICAR E A AND B [id number] 2017-Present [phone] [place] [address] Medicare [id number] 1965 Unknown [id number] 2.16.840.1.231785.3.579.2.175 1963 Unknown [id number] 2.16.840.1.556665.3.579.2.647 1963 Unknown [id number] 2.16.840.1.481503.3.579.2.593 1963 Unknown [id number] 2.16.840.1.793878.3.579.2.593 1963 Unknown [id number] 2.16.840.1.046941.3.579.2.593 1963 Unknown [id number] 2.16.840.1.583239.3.579.2.593 1963 Unknown [id number] 2.16.840.1.135268.3.579.2.593 1963 Unknown [id number] 2.16.840.1.874928.3.579.2.593 1963 Unknown [id number] 2.16.840.1.033013.3.579.2.593 1963 Unknown [id number] 2.16.840.1.409262.3.579.2.593 1963 Unknown [id number] 2.16.840.1.649812.3.579.2.593 1963 Unknown [id number] 2.16.840.1.095912.3.579.2.593 1963 Unknown [id number] 2.16.840.1.234705.3.579.2.593 1963 Unknown [id number] 2.16.840.1.081699.3.579.2.593 1963 Unknown [id number] 2.16.840.1.004746.3.579.2.593 1963 Unknown [id number] 2.16.840.1.709510.3.579.2.593 1963 Unknown [id number] 2.16.840.1.152241.3.579.2.593 1963 Unknown [id number] 2.16.840.1.129012.3.579.2.593 1963 Unknown [id number] 2.16.840.1.705754.3.579.2.593 1963 Unknown [id number] 2.16.840.1.124855.3.579.2.593 1963 Unknown [id number] 2.16.840.1.664455.3.579.2.593 1963 Unknown [id number] 2.16.840.1.486388.3.579.2.593 1963 Unknown [id number] 2.16.840.1.391565.3.579.2.593 1963 Unknown [id number] 2.16.840.1.081605.3.579.2.718 1963 Unknown [id number] 2.16.840.1.587662.3.579.2.727 1963 Unknown [id number] 2.16.840.1.610758.3.579.2.727 1963 Unknown [id number] 2.16.840.1.604484.3.579.2.727 1963 Unknown [id number] 2.16.840.1.875855.3.579.2.727 1963 Unknown [id number] 2.16.840.1.044897.3.579.2.7 1963 Unknown [id number] 2.16.840.1.502207.3.579.2.727 1963 Unknown [id number] 2.16.840.1.570678.3.579.2.727 1963 Unknown [id number] 2.16.840.1.430187.3.579.2.727 1963 Unknown [id number] 2.16.840.1.393064.3.579.2.727 1961 Medicare [id number] 1961 Unknown [id number] Social History Date Type Detail Facility Start: 08-08-2021 Tobacco smoking status Never s moked tobacco (finding) [facility] Tobacco smoking status Never [facility] Sex Assigned At Male [facility] Start: 03-12-2023 End: 12-30-2023 Tobacco smoking status Ex-smoker (finding) [facility] Start: 10-29-2021 Alcohol intake Current drinke r of alcohol (finding) [facility] Start: 1965 Sex Assigned At Not on file [facility] Medical Equipment Procedure Code Equipment Code Equipment Origin al Text Equipment Identifier Dates FDA Start: 09-20-2021 FDA Start: 09-20-2021 FDA Start: 09-20-2021 CYSTOSCOPY URETEROSCOPY Spencer MATIAS MD 09/20/21 Unknown Ureter R FDA Start: 09-20-2021 CYSTOSCOPY URETEROSCOPY Spencer MATIAS MD 09/20/21 Unknown Ureter R FDA Start: 09-20-2021 CYSTOSCOPY URETERSpencer ELI MD 09/20/21 Unknown Ureter R FDA Start: 09-20-2021 CYSTOSCOPY URETERSpencer ELI MD 09/20/21 Unknown Ureter R FDA Start: 09-20-2021 CYSTOSCOPY URETEROSCOPY Spencer MATIAS MD 09/20/21 Unknown Ureter R FDA Start: 09-20-2021 CYSTOSCOPY URETEROSCOPY Spencer MATIAS MD 09/20/21 Unknown Ureter R FDA Start: 09-20-2021 Functional Status Date Assessment Result Facility 12-30-2023 Functional Status N/A [facility] 08-29-2023 Functional Status N/A [facility] 03-12-2023 Functional Status N/A [facility] 07-03-2022 Functional Status N/A [facility] Clinical Notes 08-27-2021 to 08-03-2024 Note Date & Type Note Facility 08-03-2024 Note Cardiovascular Medic [facility] SUBJECTIVE Chief Complaint Patient presents with Coronary Artery Disease Hypertension Hyperlipidemia Doris Luis is a 59 y.o. male here for follow-up. HPI PMHx: CAD with hx PCI, DVT, DM II, HTN, HLD, former smoker, antiphospholipid syndrome, s/p IVC filter He has been doing well from a cardiac standpoint. He gets some dizziness if he doesn't drink enough fluids. He gets CASTILLO with heavier exertion. He has chronic left leg swelling since his hx of DVT. BP at home running 130s/80s. Denies c/o CP, orthopnea, PND, palpitations, syncope. Patient Active Problem List Diagnosis Coronary artery disease involving blackfeet coronary artery of blackfeet heart without angina pectoris Benign essential HTN Mixed hyperlipidemia Antiphospholipid syndrome (CMS/HCC) Coronary artery spasm (CMS/HCC) Acute deep vein thrombosis (DVT) of both iliofemoral veins (CMS/HCC) Acute deep vein thrombosis (DVT) of calf muscle vein of left lower extremity (CMS/HCC) Anticoagulated Anxiety Bilateral nephrolithiasis Kidney stone Renal cyst BMI 33.0-33.9,adult Diabetes (CMS/HCC) Diabetes mellitus type 2 in obese BPH without obstruction/lower urinary tract symptoms Benign prostatic hyperplasia Gastroesophageal reflux disease without esophagitis Microscopic hematuria Gross hematuria Ureteral stone S/P insertion of IVC (inferior vena caval) filter Lumbar radiculopathy History of deep vein thrombosis Ureteral stone with hydronephrosis Anticardiolipin antibody syndrome (CMS/HCC) Coronary arteriosclerosis Primary hypertension CASTILLO (dyspnea on exertion) Age-related nuclear cataract of both eyes Constipation Hemorrhoid History of blood clotting disorder History of DVT (deep vein thrombosis) History of heart artery stent Migraines Pseudophakia Former tobacco use Hypothyroidism Prostate cancer screening Rectal bleeding Vitamin D deficiency Past Medical History: Diagnosis Date Coronary artery disease Deep vein thrombosis (CMS/HCC) Diabetes mellitus (CMS/HCC) Hyperlipidemia Hypertension Family History Problem Relation Name Age of Onset Coronary artery disease Mother Coronary artery disease Father Social History Tobacco Use Smoking status: Former Types: Cigarettes Smokeless tobacco: Never Substance Use Topics Alcohol use: Yes Comment: occasional Allergies Allergen Reactions Penicillins Hives ROS Cardiovascular: Positive for dyspnea on exertion and leg swelling. Hematologic/Lymphatic: Bruises/bleeds easily. Musculoskeletal: Positive for back pain and joint pain. Neurological: Positive for light-headedness. All other systems reviewed and are negative. OBJECTIVE Visit Vitals BP (!) 132/92 (BP Location: Right arm, Patient Position: Sitting) Pulse 52 Ht 1.778 m (5' 10 ) Wt 105 kg (231 lb) SpO2 96% BMI 33.15 kg/m??? Smoking Status Former BSA 2.28 m??? Medications: Current Outpatient Medications: amLODIPine (Norvasc) 5 mg tablet, Take 1 tablet (5 mg) by mouth in the morning., Disp: 90 tablet, Rfl: 3 celecoxib (CeleBREX) 200 mg capsule, Take 200 mg by mouth in the morning., Disp: , Rfl: cholecalciferol (Vitamin D-3) 25 MCG (1000 units) tablet, Take 1,000 Units by mouth in the morning., Disp: , Rfl: lisinopril 30 mg tablet, take 1 tablet by mouth every morning, Disp: 90 tablet, Rfl: 3 metoprolol tartrate (Lopressor) 50 mg tablet, Take 1 tablet (50 mg) by mouth in the morning and at bedtime., Disp: 180 tablet, Rfl: 3 omeprazole (PriLOSEC) [address] capsule, Take 20 mg by mouth in the morning., Disp: , Rfl: rosuvastatin (Crestor) 40 mg tablet, Take 1 tablet (40 mg) by mouth once daily as directed., Disp: 90 tablet, Rfl: 3 SUMAtriptan (Imitrex) 25 mg tablet, TAKE 1 TABLET BY MOUTH TWICE DAILY NEEDED take second dosage at least 2 (TWO) hours after first dose MUST LAST 30 DAYS, Disp: , Rfl: tiZANidine (Zanaflex) 4 mg tablet, Take 4 mg by mouth if needed at bedtime for muscle spasms., Disp: , Rfl: venlafaxine XR (Effexor-XR) 75 mg 24 hr capsule, Take 75 mg by mouth in the morning., Disp: , Rfl: warfarin (Coumadin) 4 mg tablet, TAKE 1 TAB BY MOUTH EVERY OTHER DAY (EXCEPT 5MG ON SUNDAYS), Disp: , Rfl: Physical Exam Constitutional: Appearance: Normal appearance. He is normal weight. HENT: Head: Normocephalic and atraumatic. Right Ear: External ear normal. Left Ear: External ear normal. Eyes: Extraocular Movements: Extraocular movements intact. Pupils: Pupils are equal, round, and reactive to light. Neck: Vascular: No carotid bruit. Cardiovascular: Rate and Rhythm: Normal rate and regular rhythm. Pulses: Normal pulses. Heart sounds: Normal heart sounds. Pulmonary: Effort: Pulmonary effort is normal. Breath sounds: Normal breath sounds. Abdominal: General: Bowel sounds are normal. Palpations: Abdomen is soft. Musculoskeletal: General: Normal ran (more content not included)... [facility] 08-03-2024 Note Patient here for 1 y ear follow up CAD, dyslipidemia, and hypertension. Had routine labs w/ lipid panel in February 2024. Chest pain has resolved. CASTILLO remains unchanged he says. Gets lightheaded at times. Review of Systems Cardiovascular: Positive for dyspnea on exertion and leg swelling. Hematologic/Lymphatic: Bruises/bleeds easily. Musculoskeletal: Positive for back pain and joint pain. Neurological: Positive for light-headedness. All other systems reviewed and are negative. [facility] 12-30-2023 Evaluation + Plan note Diagnostic Tests PendingElectrolyte Panel 12/30/23 [facility] 12-30-2023 Hospital Discharge instructions Patient Education 12/30/2023 [...] include: ?8 oz (237 mL) of milk, girwgqk-xwlyclqzjzzv-lmrdt milk, and calcium-fortifiedfruit juice. Calcium-fortified means that [...] ?Spinach (cooked), rhubarb, beets, sweet potatoes, and Salvadorean chard. ?Peanuts. ?Potato chips, nauruan fries, and baked potatoes with skin on. ?Nuts and nut products. ?Chocolate. If you regularly take a diuretic medicine, make sure to eat at least 1 or 2 servings of fruits or vegetables that are high in potassium each day. These include: ?Avocado. ?Banana. ?Elbert, prune, carrot, or tomato juice. ?Baked potato. [...] magnesium, fish oil, or vitamin B6. Take qzwx-ilg-nombrjr and prescription medicines only as told by [...] Casseroles. Pizza. Lasagna. Frozen meals. Potato chips. Arabic fries. The items listed above may not [...] provider. Document Revised: 12/26/2022 Document Reviewed: 12/26/2022 [employer] Patient Education 2022 [employer]. Follow Up Care 02/18/2023 15:25:52 With:XIOMARA England APRN, Elsy Skaggs, JOSE, URL Address: When:Within 1 Year(s) Comments:w/PSA With:EDGAR DANIELLE PA-C, URL Address: [address] [place] [address] When: Unknown With:XIOMARA England APRN, Aurora X, JOSE, URL Address: When: Unknown [facility] 08-29-2023 Note Chief Complaint consultation for rectal [...] managed by Dr Caballero. 2. 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 [facility] Comment on above: Result Comment: Elec tronically Signed By: ANNAMARIE ISRAEL, Jamil Braun\denice\Date and Time Signed: 08/29/23 14:39 EST 08-14-2023 Note [facility] Note Chief Complaint: [...] to, cardiopulmonary vas (more content not included)... [facility] 04-01-2023 Note Chief Complaint consultation for [...] (08/09/2019), Cystoscopic insertion (more content not included)... [facility] Comment on above: Result Comment: Elec [...] at home: Medicines ? 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 ? Change your dressing as told by [...] by your health (more content not included)... [facility] 07-03-2022 Hospital Discharge instructions Patient Education 07/03/2022 13:32:37 Kidney Stones, Kxsg-tz-Nwom Kidney Stones Kidney stones are rock-like masses [...] Follow these instructions at home: Medicines Take nkex-lyi-zwjzbtc and prescription medicines only as told by [...] 03/03/2009 Document Revised: 02/01/2020 Document Reviewed: 02/01/2020 [employer] Patient Education 2020 [employer] 07/03/2022 13:32:36 Calorie Counting for Weight [...] 09/15/2006 Document Revised: 06/04/2019 Document Reviewed: 08/15/2017 [employer] Patient Education 2020 [employer]. Follow Up Care 06/26/2021 10:22:59 With:EDGAR DANIELLE PA-C, URL Address: [address] [place] [address] When: Unknown [facility] [...] NOTE Author:Fabián Turcios JR, DO Date:01/17/22 Plan [place] Society of Anesthesiologists (ASA) physical status classification: Class III. Anesthetic Preoperative Plan Anesthesia: General. . Anesthetic plan, risks, benefits, and alternatives discussed with the patient and/or family. Pt. and/or family present and agree to proceed as planned.. Discussed the importance of abstaining from tobacco products, and offered counseling if desired. Future Appointments Appointment Date:2022 10:45:00 AM Scheduled Provider:David Pacheco Jr., MD Location:[facility] Appointment Type:URO Office Visit [facility]04-21-2022 Hospital Discharge instructions Patient Education [...] Up Care 12/31/2021 11:37:23 With:EDGAR DANIELLE Address: [address] [place] [address] Business (1) When:6 weeks Comments:KUB x-ray with next visit. [facility]03-29-2022 Hospital Discharge instructions Patient Education [...] urethra. Follow these instructions at home: Take gjil-rzu-mswgfil and prescription medicines only as told by [...] 09/15/2006 Document Revised: 08/10/2019 Document Reviewed: 10/20/2017 [employer] Patient Education 2020 [employer]. Follow Up Care 12/24/2021 14:06:11 With:Junior Mccollum MD, David Darling [facility] Address: When: Unknown Comments:schedule [facility]SWL [facility] NoteHNO ID: [id number] Author: Tracey Eagle MD Service: ? Author Type: Physician Type: Progress Notes Filed: 08/27/2021 10:02 AM Note Text: [facility] [place] Patient: Doris Luis Provider Tracey Eagle MD : 1965 Location: [facility] Date of Service: August 27, 2021 Referring [...] LUCACREA, LUCREACL, LWK, LUSUL in the last [id number] hours. 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 No current facility-administered medications for this visit[facility] Future Appointments Appointment Date:2022 10:45:00 AM Scheduled Provider:Junior Mccollum MD, David Darling Location:[facility] Appointment Type:URO Office Visit [facility] evaluation + Plan note Future Appointments Appointment Date:01/17/2022 10:00:00 AM Scheduled Provider: Location:[facility] Appointment Type:Surgery FT Appointment Date:2022 10:45:00 AM Scheduled Provider:David Pacheco Jr., MD Location:[facility] App[facility]ments Appointment Date:08/26/2023 10:00:00 AM Scheduled Provider:EDGAR DANIELLE PA-C Location:[facility] Appointment Type:URO Office Visit [facility] Evaluation + Plan note Future Appointments Appointment Date:09/30/2023 02:30:00 PM Scheduled Provider:EDGAR DANIELLE PA-C Location:[facility] Appointment Type:URO Office Visit [facility] course Narrative No data available for this section [facility] Discharge instructions No data available for this section [facility] data available for [...] for this section No Family History Records FoundNo Family History Records Found Advance Directives No [...] section and content) DATE CREATED AUTHOR 01/21/2019 [facility] DATE CREATED AUTHOR AUTHOR'S ORGANIZ ATION 11/06/2021 [facility] DATE CREATED AUTHOR AUTHOR'S ORGANIZ ATION 04/08/2022 [facility] DATE CREATED AUTHOR AUTHOR'S ORGANIZ ATION 02/08/2023 [facility] DATE CREATED AUTHOR AUTHOR'S ORGANIZ ATION 03/09/2023 [facility] DATE CREATED AUTHOR AUTHOR'S ORGANIZ ATION 02/11/[address] 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 [facility] [employer] [facility] provides no warranty or guarantee of the accuracy or completeness of information in this document.
[2024-11-03 15:53] LABS: Alanine Aminotransferase 23 U/L (16-63); Albumin Globulin Ratio 0.9; Albumin Level 3.6 g/dL (3.4-5.0); Alkaline Phosphatase 75 U/L (46-116); Anion Gap 14.6; Aspartate Amino Transferase 18 U/L (15-37); BUN Creatinine Ratio 15.8; Bilirubin Total 0.5 mg/dL (0.2-1.0); Calcium 8.9 mg/dL (8.5-10.1); Carbon Dioxide 25.7 mmol/L (21.0-32.0); Chloride 104 mmol/L (98-107); Estimated GFR (African America 54 (>=60 mL/min/1.73m^2); Estimated GFR (Non-African Ame 45 (>=60 mL/min/1.73m^2); Glucose 135 mg/dL (74-106); Potassium 4.3 mmol/L (3.5-5.1); Sodium 140 mmol/L (136-145); Total Protein 7.6 g/dL (6.4-8.2)
--- NOTE | 2024-11-03 19:13 | PC.NURSE ---
In to introduce self to pt. Pt denies c/o at this time. NSR rate in the 70s-no ectopy observed.
--- NOTE | 2024-11-03 20:43 | PC.NURSE ---
[facility] here. Report and update given to crew. Pt continues to deny c/o. Care relinquished.
--- NOTE | 2024-11-03 20:50 | PC.NURSE ---
Report and update to Kitty LEONG at [facility].
== END 2024-11-03 20:55 | disposition short-term general hospital (02) ==
PROVIDERS: Emergency Provider Emergency Medicine; PCP Family Medicine
DX: R07.9 Chest pain, unspecified (principal); I25.10 Atherosclerotic heart disease of native coronary artery without angina pectoris; Z86.718 Personal history of other venous thrombosis and embolism; Z86.711 Personal history of pulmonary embolism; D68.61 Antiphospholipid syndrome; Z87.891 Personal history of nicotine dependence
CPT/HCPCS: 36415; 71045; 80053; 84484; 85025; 93005; 99285

== ENCOUNTER 2024-12-15 12:02 | Outpatient (OUT) | payer MEDICARE, SELFPAY ==
--- NOTE | 2024-12-15 | XR_ITS ---
[facility] [place] [id number] Patient Name: DORIS PARKER MRN: [id number] date: 1965 Sex: M Assigned Patient Location: [facility] Current Patient Location: [facility] Accession/Order Number: [id number] Exam Date: 12/15/2024 12:41 Report Date: 12/15/2024 12:45 At the request of: NOE CABALLERO MD Procedure: XR ribs LT 2V Chest 2 views left RIBS 6views CLINICAL HISTORY: Rib contusion COMPARISON: Chest 11/03/2024 FINDINGS: Low lung wires. Heart appears normal in size. No consolidation pneumothorax pleural effusion or free air. No displaced rib fracture is seen. XR/XR ribs LT 2V IMPRESSION: NO ACUTE CARDIOPULMONARY ABNORMALITY. Impression dictated by: Gianni Herrera Jr., D.OKenneth12/15/2024 12:45 PM Dictation Location: [place] [address] Electronically authenticated by: [id number] Y Date: 12/15/2024 12:45
--- NOTE | 2024-12-15 | XR_ITS ---
[facility] [place] [id number] Patient Name: DORIS PARKER MRN: [id number] date: 1965 Sex: M Assigned Patient Location: [facility] Current Patient Location: [facility] Accession/Order Number: [id number] Exam Date: 12/15/2024 12:41 Report Date: 12/15/2024 12:45 At the request of: NOE CABALLERO MD Procedure: XR ribs LT 2V Chest 2 views left RIBS 6views CLINICAL HISTORY: Rib contusion COMPARISON: Chest 11/03/2024 FINDINGS: Low lung wires. Heart appears normal in size. No consolidation pneumothorax pleural effusion or free air. No displaced rib fracture is seen. XR/XR chest 2V IMPRESSION: NO ACUTE CARDIOPULMONARY ABNORMALITY. Impression dictated by: Gianni Herrera Jr., DKennethOKenneth12/15/2024 12:45 PM Dictation Location: [place] [address] Electronically authenticated by: [id number] Y Date: 12/15/2024 12:45
--- OUTSIDE RECORDS SUMMARY | 2024-12-15 12:16 | XMS_ITS | CCD ---
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 Name Role Phone EFREM MATSON Admitting Unavailable EFREM MATSON Attending Unavailable NOE CABALLERO Primary Care Unavailable Noe Caballero Primary Care Physician DAGOBERTO CORMIER Admitting Unavailable DAGOBERTO CORMIER Attending Unavailable NOE [...] Unavailable HOY ., DR LIU Consulting Unavailable NEWARK, DR EFREM Ventura Consulting Unavailable HOY ., [...] HOY ., DR LIU Primary Care Unavailable [facility], DR MASON Braun Consulting [...] NOE CABALLERO Primary Care Unavailable Noe Caballero MD Primary Care Provider Noe Caballero MD Unavailable Jamil DE LUNA R Attending Unavailable Orzech, Elsy X Attending Unavailable ALEJANDRO DANIELLE Attending Unavailab le Orzech, Elsy X Attending Unavailable Orzech, Elsy X Admitting Unavailable Orzech, Elsy X Attending Unavailable Orzech, Elsy X Admitting Unavailable Orzech, Elsy X Attending Unavailable ELIJAH, ALEJANDRO [place] Admitting Unavailab le ELIJAHALEJANDRO QUEVEDO Attending Unavailab le NILL, Jamil Braun Attending Unavailable NILL, Jamil Braun Attending Unavailable Hoy, Noe Referring Unavailable Hoy, Noe Referring Unavailable NILL, Jamil Braun Attending Unavailable ELTAHAWY, EHAB Attending Unavailable MCGOWAN, DIANDRA Referring Unavailable MCGOWAN, DIANDRA Referring Unavailable PIRKL, LISS Referring Unavailable PIRKL, LISS Referring Unavailable RICE, AZAELA Referring Unavailable HORANI, NAZANIN Admitting Unavailable MCGOWAN, DIANDRA Attending Unavailable ALONDRAJASVIR MURDOCK Attending Unavailable Allergies Allergy Classification Reported Allergen(s) Allergy Type Date of Onset Reaction(s) Facility (10 sources) Acetaminophen / HYDROcodone; Translations: [acetaminophen-h ydrocodone] Drug Allergy Hallucinations (finding), Migraine (disorder) [facility] (14 sources) Penicillins; Translations: [penicillins] Drug allergy 06-29-20 14 Weal (disorder) [facility] (10 sources) Sulfonamides (Antibiotic); Translations: [sulfa drugs] Drug allergy Weal (disorder) [facility] (1 source) Acetaminophen / HYDROcodone Drug Allergy [facility] (2 sources) Sulfonamides (Antibiotic) Drug allergy (disorder) 11-11-19 15 [facility] (1 source) Penicillin; Translations: [penicillin] Drug Allergy [facility] Repository (1 source) Sulfonamides (Antibiotic); Translations: [SULFA (SULFONAMIDE ANTIBIOTICS)] Propensity to adverse reactions to drug (disorder) 11-03-19 [facility] Repository Medications Current Medications Medication Drug [...] day(s), # 6 tab(s), Refills(s) 0, Pharmacy: [address], 178, cm, 01/11/22 13:03:00 EDT, Height/Length [...] mg oral tablet (6 sources) Biguanide Start: 019 take 1 tablet by mouth once daily [...] for 30 day(s), 60 tab(s), Refill(s) 6, [facility], 178, cm, 12/30/23 11:22:00 EDT, Height/Length [...] Start: 08-29-2020 take 1 capsule by mo [facility] once daily venlafaxine 75 mg Cap-ER 75 mg = 1 cap(s), Oral, Daily, take 1 capsule by mouth once daily, Anxiety Start Date: 08/29/20 Status: Ordered take 1 tablet by [facility] twice daily venlafaxine (EFFEXOR) 75 mg [...] Chronic Coronary atherosclerosis and other heart disease (20 sources) Coronary arteriosclerosis; Translations: [Atherosclerotic heart disease of [place] coronary artery without angina pectoris] Onset: 2 [...] lower urinary tract symptoms] Onset: 2 Chronic Nonspecific chest pain (8 sources) Chest pain, unspecified; Translations: [Other chest pain] Onset: 2 Episodic Nutritional deficiencies (4 sources) Vitamin D deficiency 08-15-2023 Chronic Other aftercare (2 sources) Long-term current use of anticoagulant; Translations: [prison (current) use of 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] Onset: 2 Episodic [...] venous thrombosis; Translations: [H/O: embolism] 09-13-2021 Episodic Pulmonary heart disease (2 sources) Personal history of pulmonary embolism; Translations: [Personal history of pulmonary embolism] Onset: 5 Episodic Rheumatoid arthritis and related disease (4 sources) Rheumatoid arthritis 08-15-2023 Chronic Screening and history of mental health and substance abuse codes (4 sources) Ex-tobacco user 08-15-2023 Episodic Spondylosis; intervertebral disc disorders; other back problems (5 sources) Radiculopathy, lumbar region; Translations: [Lumbar radiculopathy] Onset: 9 08-15-2023 Episodic Syncope (2 sources) Syncope and collapse; Translations: [Syncope and collapse] Onset: 5 Episodic Thyroid disorders (4 sources) Hypothyroidism 08-15-2023 Chronic Unclassified (9 sources) Drug therapy finding 07-19-2019 Unclassified (1 source) CONTACT W/AND (SUSP) EXPOS COVID-19; Translations: [CONTACT W/AND (SUSP) EXPOS COVID-19] Onset: 2 Unclassified (3 sources) Patient encounter status 12-29-2023 Past or Other Problems Problem Classification Problem Date Documented Da te Episodic/Chronic Other aftercare (1 source) Encounter for therapeutic drug level monitoring; Translations: [ENC THERAPEUTC DRUG LEVL MONITORING] Onset: 09-24-2022 Episodic Other aftercare (1 source) emt intermediate (current) use of 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; Translations: [PENITENTIARY CURRNT USE ANTICOAGULANTS] Onset: 09-24-2022 Episodic Results Test Name Value Interpretation Reference Range Facility 36on 11-06-2024 36 Post Discharge Call Good morning, I am Violeta Zuniga RN a lead nurse from [facility]. I am calling you to follow up on your stay with us and make sure all of your questions have been answered. You will be receiving a survey either electronic or via mail and we always aim to receive 9???s and 10???s. If there is any reason you feel as though you cannot give us these scores please indicate that now. 1. How have you been feeling since being discharged from the hospital? Has a migraine right now. 2. Did you understand your discharge instructions when they were given to prior to leaving? Yes Were you given an opportunity to ask questions? Yes 3. While a patient in the hospital, was your call light answered in a timely manner? Yes 4. Do have access to all medications that were prescribed to you at discharge? Yes 5. How would you rate your overall stay on a scale of 0-10, 10 being the best experience you have ever had. 10 6. Do you have any further questions you would like to discuss? No Patient Name Doris Luis Date 11/06/24 [facility] Telephoneon 11-06-2024 Telephone [id number] Doris Luis 1965 M Date Provider Department Center 11/06/2024 VIO[facility] [place] [facility] Family History Problem Relation Age of Onset Coronary artery disease Mother Coronary artery disease Father Family Status - Relation Status Age at Mother Father [facility] 30on 11-05-2024 30 The patient is Moderately Stable - Low risk of patient condition declining or worsening The patient's goals for the shift include discharge The clinical goals for the shift include stable vs Over the shift, the patient did make progress toward his goals. [facility] 30 The patient is Moderately Stable - Low risk of patient condition declining or worsening The patient's goals for the shift include comfort/rest The clinical goals for the shift include stable vs Problem: Pain - Adult Goal: Verbalizes/displays adequate comfort level or baseline comfort level Outcome: Progressing Problem: Safety - Adult Goal: Free from fall injury Outcome: Progressing Flowsheets (Taken 11/05/2024801) Free from fall injury: Assess patient frequently for physical needs Identify cognitive and physical deficits and behaviors that affect risk of falls Educate patient/family on patient safety, including physical limitations Consider OT/PT consult to assist with strengthening/mobilit y Modify environment to reduce risk of injury Instruct patient to call for assistance with activity based on assessment Wolf fall precautions as indicated by assessment Problem: Discharge Planning Goal: Discharge to home or other facility with appropriate resources Outcome: Progressing Flowsheets (Taken 11/05/2024801) Discharge to home or other facility with appropriate resources: Identify barriers to discharge with patient and caregiver Arrange for needed discharge resources and transportation as appropriate Arrange for interpreters to assist at discharge as needed Refer to discharge planning if patient needs post-hospital services based on physician order or complex needs related to functional status, cognitive ability or social support system Identify discharge learning needs (meds, wound care, etc) Problem: Chronic Conditions and Co-morbidities Goal: Patient's chronic conditions and co-morbidity symptoms are monitored and maintained or improved Outcome: Progressing Flowsheets (Taken 11/05/2024 08) Care Plan - Patient's Chronic Conditions and Co-Morbidity Symptoms are Monitored and Maintained or Improved: Monitor and assess patient's chronic conditions and comorbid symptoms for stability, deterioration, or improvement Update acute care plan with appropriate goals if chronic or comorbid symptoms are exacerbated and prevent overall improvement and discharge Collaborate with multidisciplinary team to address chronic and comorbid conditions and prevent exacerbation or deterioration Normal [facility] Hiro 11-05-2024 ANES - Attestation signed by Dagoberto Cormier MD at 11/05/2024 1:10 PM Dagoberto Cormier MD, MPH, [facility], [facility], [facility] Interventional Cardiology Pager Email: [email or web address] Patient: Doris Luis Procedure Information Date/Time: 11/05/24 1304 Procedure: Coronary angiography - HIGH INR Location: [facility] [address] / [facility] (Cath) Providers: Dagoberto Cormier MD Clinical information reviewed: Allergies Meds Physical Exam Airway Mallampati: III Cardiovascular Dental Pulmonary Abdominal Anesthesia Plan ASA 3 other (Conscious sedation) intravenous induction Anesthetic plan and risks discussed with patient. Use of blood products discussed with patient who consented to blood products. Plan discussed with attending and fellow. Additional Equipment Requests Normal [facility] ANTI-XA (HEPARIN LEVEL)on HEPARIN UNFRACTIONATED (U/ML) IN PPP BY CHROMOGENIC METHOD 0.99 IU/mL Critically high 0.3-0.7 [facility] Comment on above: Result Comment: Ileana roxaban and Apixaban will interfere with the anti Xa assay used to monitor UFH and LMWH. Performed By: #### L [id number] #### [facility] ([facility]) [address] [place] [address] BASIC METABOLIC PANELon Anion gap [Moles/Vol] 10 mmol/L Normal 7-20 [facility] Comment on above: Performed By: #### L [id number] ####[facility] ([facility])[address] [place] [address] Calcium [Mass/Vol] 9.0 mg/dL Normal 8.6-10.3 [facility] Comment on above: Performed By: #### L [id number] ####[facility] (BEAKER)[address] [place] [address] Chloride [Moles/Vol] 105 mmol/L Normal 98-107 [facility] Comment on above: Performed By: #### L [id number] ####[facility] ([facility]ER)[address] [place] [address] CO2 [Moles/Vol] 28 mmol/L Normal 21-31 [facility] Comment on above: Performed By: #### L [id number] ####[facility] [place] [address] Creatinine [Mass/Vol] 1.32 mg/dL High 0.70-1.30 [facility] Comment on above: Performed By: #### L [id number] ####[facility] ([facility] [place] [address] GLOMERULAR FILTRATION RATE ML/MIN/1.73 SQ M.PREDICTED 61.4 mL/min/1.73m*2 Normal >60.0 [facility] Comment on above: Result Comment: The [facility]???s estimated glomerular filtration rate (eGFR) will no longer include consideration of race in its calculation. The National Kidney Foundation???s eGFR Task Force developed new recommendations for the estimation of the glomerular filtration rate in the [place] They recommend immediate implementation of the new equation refit without the race variable in all laboratories because the calculation does not include race. In addition to not including race in the calculation and reporting, it included diversity in its development, and has acceptable performance characteristics and potential consequences that do not disproportionately affect any one group of individuals. Performed By: #### L [id number] ####[facility] ([facility])[address] [place] [address] Glucose [Mass/Vol] 101 mg/dL High 70-100 [facility] Comment on above: Performed By: #### L [id number] ####[facility] ([facility])[address] [place] [address] Potassium [Moles/Vol] 4.1 mmol/L Normal 3.5-5.1 [facility] Comment on above: Performed By: #### L [id number] ####[facility] ([facility])[address] [place] [address] Sodium [Moles/Vol] 139 mmol/L Normal 136-145 [facility] Comment on above: Performed By: #### L [id number] ####[facility] ([facility] [place] [address] Urea nitrogen [Mass/Vol] 20 mg/dL Normal 7-25 [facility] Comment on above: Performed By: #### L [id number] ####[facility] [place] [address] UREA NITROGEN/CREATININE (MASS RATIO) IN SER/PLAS 15.2 Normal [facility] Comment on above: Performed By: #### L [id number] ####[facility] ([facility] [place] [address] CBC WITH AUTO DIFFERENTIALon 11-05-2024 Basophils (Bld) [#/Vol] 0.10 10*3/uL Normal 0.00-0.20 [facility] Comment on above: Performed By: #### L [id number] ####[facility] ([facility])[address] [place] [address] Basophils/100 WBC (Bld) 1.2 % High 0.0-1.0 [facility] Comment on above: Performed By: #### L [id number] ####[facility] ([facility])[address] [place] [address] Eosinophils (Bld) [#/Vol] 0.17 10*3/uL Normal 0.00-0.50 [facility] Comment on above: Performed By: #### L [id number] ####[facility] ([facility])[address] [place] [address] Eosinophils/100 WBC (Bld) 2.0 % Normal 0.0-6.0 [facility] Comment on above: Performed By: #### L [id number] ####[facility] ([facility])[address] [place] [address] Erythrocyte distribution width (RBC) [Ratio] 17.4 % High 11.5-15.0 [facility] Comment on above: Performed By: #### L [id number] ####[facility] ([facility])[address] [place] [address] ERYTHROCYTE MEAN CORPUSCULAR HEMOGLOBIN CONCENTRATION (G/DL) BY AUTOMATED 29.8 g/dL Low 32.0-35.0 [facility] Comment on above: Performed By: #### L [id number] ####[facility] [place] [address] Hematocrit (Bld) [Volume fraction] 40.0 % Normal 39.0-55.0 [facility] Comment on above: Performed By: #### L [id number] ####[facility] (BEAKER)[address] [place] [address] Hemoglobin (Bld) [Mass/Vol] 11.9 g/dL Low 13.0-17.0 [facility] Comment on above: Performed By: #### L [id number] ####[facility] ([facility])[address] [place] [address] Immature granulocytes (Bld) [#/Vol] 0.03 10*3/uL Normal 0.00-0.20 [facility] Comment on above: Performed By: #### L [id number] ####[facility] ([facility])[address] [place] [address] Immature granulocytes/100 WBC (Bld) 0.3 % Normal 0.0-1.0 [facility] Comment on above: Performed By: #### L [id number] ####[facility] ([facility])[address] [place] [address] Lymphocytes (Bld) [#/Vol] 2.67 10*3/uL Normal 1.20-4.00 [facility] Comment on above: Performed By: #### L [id number] ####[facility] ([facility])[address] [place] [address] Lymphocytes/100 WBC (Bld) 30.9 % Normal 20.0-45.0 [facility] Comment on above: Performed By: #### L [id number] ####[facility] ([facility])[address] [place] [address] MCH (RBC) [Entitic mass] 21.3 pg Low 27.0-33.0 [facility] Comment on above: Performed By: #### L [id number] ####[facility] ([facility])[address] [place] [address] MCV (RBC) [Entitic vol] 71.7 fL Low 82.0-98.0 [facility] Comment on above: Performed By: #### L [id number] ####[facility] ([facility])[address] [place] [address] Monocytes (Bld) [#/Vol] 0.84 10*3/uL Normal 0.10-1.00 [facility] Comment on above: Performed By: #### L [id number] ####[facility] ([facility]ER)[address] [place] [address] Monocytes/100 WBC (Bld) 9.7 % Normal 5.0-12.0 [facility] Comment on above: Performed By: #### L [id number] ####[facility] ([facility])[address] [place] [address] Neutrophils (Bld) [#/Vol] 4.84 10*3/uL Normal 1.60-7.60 [facility] Comment on above: Performed By: #### L [id number] ####[facility] ([facility])[address] [place] [address] Neutrophils/100 WBC (Bld) 55.9 % Normal 40.0-72.0 [facility] Comment on above: Performed By: #### L [id number] ####[facility] ([facility])[address] [place] [address] NRBC (PER 100 WBCS) BY AUTOMATED COUNT 0.0 % Normal 0 [facility] Comment on above: Performed By: #### L [id number] ####[facility] ([facility])[address] [place] [address] PLATELETS (10*3/UL) IN BLOOD AUTOMATED COUNT 311 10*3/uL Normal 150-400 [facility] Comment on above: Performed By: #### L [id number] ####[facility] ([facility])[address] [place] [address] RBC (Bld) [#/Vol] 5.58 10*6/uL Normal 4.20-5.70 [facility] Comment on above: Performed By: #### L [id number] ####[facility] ([facility])[address] [place] [address] WBC (Bld) [#/Vol] 8.65 10*3/uL Normal 4.00-10.60 [facility] Comment on above: Performed By: #### L [id number] ####[facility] ([facility])[address] [place] [address] HPon 11-05-2024 HP - Attestation signed by Dagoberto Cormier MD at 11/05/2024 1:10 PM Dagoberto Cormier MD, MPH, [facility], [facility], [facility] Interventional Cardiology Pager Email: [email or web address] H&P reviewed. The patient was examined and there are no changes to the H&P. Normal [facility] LIPID PANELon 11-05-2024 CHOL/HDL 3.2 mg/dL Normal [facility] Comment on above: Performed By: #### L [id number] #### [facility] ([facility]) [address] [place] [address] Cholesterol [Mass/Vol] 106 mg/dL Low 120-200 Un [facility] Comment on above: Performed By: #### L [id number] #### [facility] ([employer]) [address] [place] [address] Magnesium [Mass/Vol] 130 mg/dL Normal 40-149 [facility] Comment on above: Result Comment: TRIG LYCERIDE REFERENCE RANGE: 20 YEARS AND OLDER CARDIOVASCULAR RISK LESS THAN 150 mg/dL LOW RISK 150 TO 199 mg/dL BORDERLINE RISK 200 mg/dL AND GREATER HIGH RISK Performed By: #### L [id number] #### [facility] ([facility]) [address] [place] [address] Magnesium [Mass/Vol] 47 mg/dL Normal 0-160 [facility] Comment on above: Performed By: #### L [id number] #### [facility] ([facility]) [address] [place] [address] Magnesium [Mass/Vol] 33 mg/dL Normal 23-92 [facility] Comment on above: Performed By: #### L [id number] #### [facility] ([facility]) [address] [place] [address] NON HDL CHOL. (LDL+VLDL) 73 Normal [facility] Comment on above: Performed By: #### L [id number] #### [facility] ([facility]) [address] [place] [address] TOTAL VLDL-C 26 mg/dL Normal 0-40 [facility] Comment on above: Performed By: #### L [id number] #### [facility] ([facility]) [address] [place] [address] PROTIME-INRon 11-05-2024 INR IN PPP BY COAGULATION ASSAY 2.03 High 0.90-1.10 [facility] Comment on above: Result Comment: ACCC P RECOMMENDED INR FOR WARFARIN THERAPY CONDITION INR PROPHYLAXIS OF VENOUS THROMBOSIS 2-3 (HIGH-RISK SURGERY) TREATMENT OF VENOUS THROMBOSIS 2-3 TREATMENT OF PULMONARY EMBOLISM 2-3 PREVENTION OF SYSTEMIC EMBOLISM: 2-3 ACUTE MYOCARDIAL INFARCTION TISSUE HEART VALVES VALVULAR HEART DISEASE ATRIAL FIBRILLATION RECURRENT SYSTEMIC EMBOLISM MECHANICAL HEART VALVE 2.5-3.5 FROM: ORAL ANTICOAGULANTS. MECHANISM OF ACTION, CLINICAL EFFECTIVENESS, AND OPTIMAL THERAPEUTIC RANGE. CHEST 1995;108:231S-246S. Performed By: #### L [id number] ####[facility] ([facility])[address] [place] [address] PROTHROMBIN TIME (PT) IN PPP BY COAGULATION ASSAY 22.6 Seconds High 12.3-14.8 [facility] Comment on above: Performed By: #### L [id number] ####[facility] [place] [address] 30on 11-04-2024 30 The patient is Moderately Stable - Low risk of patient condition declining or worsening The patient's goals for the shift include comfort and rest The clinical goals for the shift include stable VS Over the shift, the patient did make progress toward his goals. Normal [facility] 30 The patient is Moderately Stable - Low risk of patient condition declining or worsening The patient's goals for the shift include comfort The clinical goals for the shift include stable vs Over the shift, the patient did not make progress toward the following goals. Barriers to progression include . Recommendations to address these barriers include . Normal [facility] ANTI-XA (HEPARIN LEVEL)on HEPARIN UNFRACTIONATED (U/ML) IN PPP BY CHROMOGENIC METHOD 0.58 IU/mL Normal 0.3-0.7 [facility] Comment on above: Result Comment: Ileana roxaban and Apixaban will interfere with the anti Xa assay used to monitor UFH and LMWH. Performed By: #### L [id number] ####[facility] ([facility])[address] [place] [address] HEPARIN UNFRACTIONATED (U/ML) IN PPP BY CHROMOGENIC METHOD 0.41 IU/mL Normal 0.3-0.7 [facility] Comment on above: Result Comment: [place] roxaban and Apixaban will interfere with the anti Xa assay used to monitor UFH and LMWH. Performed By: #### L [id number] #### [facility] [address] [place] [address] HEPARIN UNFRACTIONATED (U/ML) IN PPP BY CHROMOGENIC METHOD <0.10 Invalid Interpretation Code 0.3-0.7 [facility] Comment on above: Result Comment: [place] roxaban and Apixaban will interfere with the anti Xa assay used to monitor UFH and LMWH. Performed By: #### L [id number] #### [facility] ([facility]) [address] [place] [address] CBCon 11-04-2024 Erythrocyte distribution width (RBC) [Ratio] 17.7 % High 11.5-15.0 [facility] Comment on above: Performed By: #### L [id number] #### [facility] ([facility]) [address] [place] [address] ERYTHROCYTE MEAN CORPUSCULAR HEMOGLOBIN CONCENTRATION (G/DL) BY AUTOMATED 29.4 g/dL Low 32.0-35.0 [facility] Comment on above: Performed By: #### L [id number] #### [facility] ([facility]) [address] [place] [address] Hematocrit (Bld) [Volume fraction] 39.5 % Normal 39.0-55.0 [facility] Comment on above: Performed By: #### L [id number] #### [facility] ([facility]) [address] [place] [address] Hemoglobin (Bld) [Mass/Vol] 11.6 g/dL Low 13.0-17.0 [facility] Comment on above: Performed By: #### L [id number] #### [facility] [address] [place] [address] MCH (RBC) [Entitic mass] 21.3 pg Low 27.0-33.0 [facility] Comment on above: Performed By: #### L [id number] #### [facility] ([facility]) [address] [place] [address] MCV (RBC) [Entitic vol] 72.6 fL Low 82.0-98.0 [facility] Comment on above: Performed By: #### L [id number] #### [facility] ([facility]) [address] [place] [address] PLATELETS (10*3/UL) IN BLOOD AUTOMATED COUNT 308 10*3/uL Normal 150-400 [facility] Comment on above: Performed By: #### L [id number] #### [facility] ([facility]) [address] [place] [address] RBC (Bld) [#/Vol] 5.44 10*6/uL Normal 4.20-5.70 [facility] Comment on above: Performed By: #### L [id number] #### [facility] ([facility]) [address] [place] [address] WBC (Bld) [#/Vol] 8.24 10*3/uL Normal 4.00-10.60 [facility] Comment on above: Performed By: #### L [id number] #### [facility] ([facility]) [address] [place] [address] CONSULTon 11-04-2024 CONSULT - Attestation with edits by Demarco Pepe MD at 11/04/2024 7:35 PM By using the attestations below, I agree that I have read and verify that the documentation has been personally reviewed by me and ensure that the documentation accurately reflects the encounter. GC: I personally saw this patient on the day of the encounter, performed the feliciano portions of the service and participated in the management and treatment plan of the patient. I reviewed and confirm the documentation by the Resident Dr Tamir Muñoz. Please note there may be an additional personal documentation from me. Demarco Pepe MD Cardiology Consult Note Reason for Consult: Unstable angina HPI: Doris Luis is a 59 y.o. 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 Patient presented with episode of chest pain lasted for 5 days 10 minutes on 10/31/2024. He also endorse history of syncopal episode with postural changes. Patient is following Dr. Cormier reimbursement coordinator as out patient setting. He was sent to the hospital by cardiology and found to have elevated troponin. He was then transferred to the [facility] for further evaluation and management Vitals were unremarkable. Labs notable for peak troponin 0.03. EKG showed sinus rhythm. Patient was treated with heparin infusion. Cardiology was consulted for management of unstable angina. Cardiology ROS: Negative except as mentioned. Past Medical History He has a past [...] Mother Coronary artery disease Father Allergies Penicillins and Sulfa (sulfonamide antibiotics) Medications Current Outpatient Medications Medication Instructions amLODIPine (NORVASC) 5 mg, oral, Daily celecoxib (CELEBREX) 200 mg, oral, Daily cholecalciferol (VITAMIN D-3) 1,000 Units, oral, Daily RT lisinopril 30 mg, oral, Every morning metoprolol tartrate (LOPRESSOR) 50 mg, oral, 2 times daily omeprazole (PRILOSEC) 20 mg, oral, Daily rosuvastatin (CRESTOR) 40 mg, oral, Once Daily SUMAtriptan (Imitrex) 25 mg tablet TAKE 1 TABLET BY MOUTH TWICE DAILY NEEDED take second dosage at least 2 (TWO) hours after first dose MUST LAST 30 DAYS tiZANidine (ZANAFLEX) 4 mg, oral, Nightly PRN venlafaxine XR (EFFEXOR-XR) 75 mg, oral, Daily warfarin (Coumadin) 4 mg tablet TAKE 1 TAB BY MOUTH EVERY OTHER DAY (EXCEPT 5MG ON SUNDAYS) Medications Prior to Admission Medication Sig Dispense Refill Last Dose amLODIPine (Norvasc) 5 mg tablet Take 1 tablet (5 mg) by mouth in the morning. 90 tablet 3 celecoxib (CeleBREX) 200 mg capsule Take 200 mg by mouth in the morning. cholecalciferol (Vitamin D-3) 25 MCG (1000 units) tablet Take 1,000 Units by mouth in the morning. lisinopril 30 mg tablet take 1 tablet by mouth every morning 90 tablet 3 metoprolol tartrate (Lopressor) 50 mg tablet Take 1 tablet (50 mg) by mouth in the morning and at bedtime. 180 tablet 3 omeprazole (PriLOSEC) [address] capsule Take 20 mg by mouth in the morning. rosuvastatin (Crestor) 40 mg tablet Take 1 tablet (40 mg) by mouth once daily as directed. (Patient taking differently: Take 40 mg by mouth at bedtime.) 90 tablet 3 SUMAtriptan (Imitrex) 25 mg tablet TAKE 1 TABLET BY MOUTH TWICE DAILY NEEDED take second dosage at least 2 (TWO) hours after first dose MUST LAST 30 DAYS tiZANidine (Zanaflex) 4 mg tablet Take 4 mg by mouth if needed at bedtime for muscle spasms. venlafaxine XR (Effexor-XR) 75 mg 24 hr capsule Take 75 mg by mouth in the morning. warfarin (Coumadin) 4 mg tablet TAKE 1 TAB BY MOUTH EVERY OTHER DAY (EXCEPT 5MG ON SUNDAYS) Current Facility-Administered Medications Medication Dose Route Frequency Provider Last Rate Last Admin acetaminophen (Tylenol) tablet 650 mg 650 mg oral q6h PRN Liss Pirkl, COMMUNITY CENTER DIRECTOR amLODIPine (Norvasc) tablet 5 mg 5 mg oral Daily Liss Pirkl, COMMUNITY CENTER DIRECTOR 5 mg at 11/04/24 0942 heparin infusion 100 units/mL in D5W 0-28 Units/kg/hr intravenous Continuous Liss Pirkl, COMMUNITY CENTER DIRECTOR 15.5 mL/hr at 11/04/24 0000 15 Units/kg/hr at 11/04/24 0000 lisinopril tablet 30 mg 30 mg oral Daily (more content not included)... Normal [facility] HPon 11-04-2024 HP - Attestation signed by Demarco Pepe MD at 11/04/2024 7:35 PM By using the attestations below, I agree that I have read and verify that the documentation has been personally reviewed by me and ensure that the documentation accurately reflects the encounter. GC: I personally saw this patient on the day of the encounter, performed the feliciano portions of the service and participated in the management and treatment plan of the patient. I reviewed and confirm the documentation by the Resident Dr Tamir Muñoz. Please note there may be an additional personal documentation from me. Demarco Pepe MD Cardiology Consult Note Reason for Consult: Unstable angina HPI: Doris Luis is a 59 y.o. 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 Patient presented with episode of chest pain lasted for 5 days 10 minutes on 10/31/2024. He also endorse history of syncopal episode with postural changes. Patient is following Dr. Cormier reimbursement coordinator as out patient setting. He was sent to the hospital by cardiology and found to have elevated troponin. He was then transferred to the [facility] for further evaluation and management Vitals were unremarkable. Labs notable for peak troponin 0.03. EKG showed sinus rhythm. Patient was treated with heparin infusion. Cardiology was consulted for management of unstable angina. Cardiology ROS: Negative except as mentioned. Past Medical History He has a past [...] Mother Coronary artery disease Father Allergies Penicillins and Sulfa (sulfonamide antibiotics) Medications Current Outpatient Medications Medication Instructions amLODIPine (NORVASC) 5 mg, oral, Daily celecoxib (CELEBREX) 200 mg, oral, Daily cholecalciferol (VITAMIN D-3) 1,000 Units, oral, Daily RT lisinopril 30 mg, oral, Every morning metoprolol tartrate (LOPRESSOR) 50 mg, oral, 2 times daily omeprazole (PRILOSEC) 20 mg, oral, Daily rosuvastatin (CRESTOR) 40 mg, oral, Once Daily SUMAtriptan (Imitrex) 25 mg tablet TAKE 1 TABLET BY MOUTH TWICE DAILY NEEDED take second dosage at least 2 (TWO) hours after first dose MUST LAST 30 DAYS tiZANidine (ZANAFLEX) 4 mg, oral, Nightly PRN venlafaxine XR (EFFEXOR-XR) 75 mg, oral, Daily warfarin (Coumadin) 4 mg tablet TAKE 1 TAB BY MOUTH EVERY OTHER DAY (EXCEPT 5MG ON SUNDAYS) Medications Prior to Admission Medication Sig Dispense Refill Last Dose amLODIPine (Norvasc) 5 mg tablet Take 1 tablet (5 mg) by mouth in the morning. 90 tablet 3 celecoxib (CeleBREX) 200 mg capsule Take 200 mg by mouth in the morning. cholecalciferol (Vitamin D-3) 25 MCG (1000 units) tablet Take 1,000 Units by mouth in the morning. lisinopril 30 mg tablet take 1 tablet by mouth every morning 90 tablet 3 metoprolol tartrate (Lopressor) 50 mg tablet Take 1 tablet (50 mg) by mouth in the morning and at bedtime. 180 tablet 3 omeprazole (PriLOSEC) [address] capsule Take 20 mg by mouth in the morning. rosuvastatin (Crestor) 40 mg tablet Take 1 tablet (40 mg) by mouth once daily as directed. (Patient taking differently: Take 40 mg by mouth at bedtime.) 90 tablet 3 SUMAtriptan (Imitrex) 25 mg tablet TAKE 1 TABLET BY MOUTH TWICE DAILY NEEDED take second dosage at least 2 (TWO) hours after first dose MUST LAST 30 DAYS tiZANidine (Zanaflex) 4 mg tablet Take 4 mg by mouth if needed at bedtime for muscle spasms. venlafaxine XR (Effexor-XR) 75 mg 24 hr capsule Take 75 mg by mouth in the morning. warfarin (Coumadin) 4 mg tablet TAKE 1 TAB BY MOUTH EVERY OTHER DAY (EXCEPT 5MG ON SUNDAYS) Current Facility-Administered Medications Medication Dose Route Frequency Provider Last Rate Last Admin acetaminophen (Tylenol) tablet 650 mg 650 mg oral q6h PRN Liss Pirkl, COMMUNITY CENTER DIRECTOR amLODIPine (Norvasc) tablet 5 mg 5 mg oral Daily Liss Pirkl, COMMUNITY CENTER DIRECTOR 5 mg at 11/04/24 0942 heparin infusion 100 units/mL in D5W 0-28 Units/kg/hr intravenous Continuous Liss Pirkl, COMMUNITY CENTER DIRECTOR 15.5 mL/hr at 11/04/24 0000 15 Units/kg/hr at 11/04/24 0000 lisinopril tablet 30 mg 30 mg oral Daily Lexus (more content not included)... Normal [facility] PLATELET COUNTon 11-04-2024 PLATELETS (10*3/UL) IN BLOOD AUTOMATED COUNT 307 10*3/uL Normal 150-400 [facility] Comment on above: Performed By: #### L [id number] #### [facility] ([facility]AK[facility]) [address] [place] [address] PROTIME-INRon 11-04-2024 INR IN PPP BY COAGULATION ASSAY 2.42 High 0.90-1.10 [facility] Comment on above: Result Comment: ACCC P RECOMMENDED INR FOR WARFARIN THERAPY CONDITION INR PROPHYLAXIS OF VENOUS THROMBOSIS 2-3 (HIGH-RISK SURGERY) TREATMENT OF VENOUS THROMBOSIS 2-3 TREATMENT OF PULMONARY EMBOLISM 2-3 PREVENTION OF SYSTEMIC EMBOLISM: 2-3 ACUTE MYOCARDIAL INFARCTION TISSUE HEART VALVES VALVULAR HEART DISEASE ATRIAL FIBRILLATION RECURRENT SYSTEMIC EMBOLISM MECHANICAL HEART VALVE 2.5-3.5 FROM: ORAL ANTICOAGULANTS. MECHANISM OF ACTION, CLINICAL EFFECTIVENESS, AND OPTIMAL THERAPEUTIC RANGE. CHEST 1995;108:231S-246S. Performed By: #### L [id number] #### [facility] ([facility]) [address] [place] [address] PROTHROMBIN TIME (PT) IN PPP BY COAGULATION ASSAY 25.8 Seconds High 12.3-14.8 [facility] Comment on above: Performed By: #### L [id number] #### [facility] ([facility]) [address] [place] [address] TROPONIN Ion 11-04-2024 Troponin I.cardiac [Mass/Vol] 0.02 ng/mL Normal 0.00-0.04 [facility] Comment on above: Performed By: #### L [id number] ####[facility] [place] [address] Troponin I.cardiac [Mass/Vol] 0.03 ng/mL Normal 0.00-0.04 [facility] Comment on above: Performed By: #### L [id number] #### [facility] ([facility]) [address] [place] [address] Troponin I.cardiac [Mass/Vol] 0.03 ng/mL Normal 0.00-0.04 [facility] Comment on above: Performed By: #### L [id number] #### [facility] ([facility]) [address] [place] [address] 30on 11-03-2024 30 The patient is Moderately Stable - Low risk of patient condition declining or worsening The patient's goals for the shift include Comfort The clinical goals for the shift include VSS Over the shift, the patient did make progress toward his goals. Normal [facility] 30 The patient is Moderately Stable - Low risk of patient condition declining or worsening The patient's goals for the shift include VSS The clinical goals for the shift include Comfort Normal [facility] APTTon 11-03-2024 ACTIVATED PARTIAL THROMBOPLASTIN TIME IN PPP BY COAGULATION ASSAY 27.0 Seconds Normal 25.0-35.0 [facility] Comment on above: Order Comment: Basel ine aPTT before initiating heparin infusion. Result Comment: Clin ical significance of the APTT is questionable in the presence of heparin. Performed By: #### L [id number] #### [facility] ([facility]) [address] [place] [address] B-TYPE NATRIURETIC PEPTIDEon 11-03-2024 Natriuretic peptide B (Bld) [Mass/Vol] 37 pg/mL Normal 0-100 [facility] Comment on above: Performed By: #### L [id number] #### [facility] ([facility]) [address] [place] [address] CBC WITH AUTO DIFFERENTIALon 11-03-2024 Basophils (Bld) [#/Vol] 0.07 10*3/uL Normal 0.00-0.20 [facility] Comment on above: Performed By: #### L [id number] #### [facility] ([facility]) [address] [place] [address] Basophils/100 WBC (Bld) 0.9 % Normal 0.0-1.0 [facility] Comment on above: Performed By: #### L [id number] #### [facility] ([facility]) [address] [place] [address] Eosinophils (Bld) [#/Vol] 0.13 10*3/uL Normal 0.00-0.50 [facility] Comment on above: Performed By: #### L [id number] #### [facility] (BEAKER) [address] [place] [address] Eosinophils/100 WBC (Bld) 1.6 % Normal 0.0-6.0 [facility] Comment on above: Performed By: #### L [id number] #### [facility] [address] [place] [address] Erythrocyte distribution width (RBC) [Ratio] 17.2 % High 11.5-15.0 [facility] Comment on above: Performed By: #### L [id number] #### [facility] ([facility]) [address] [place] [address] ERYTHROCYTE MEAN CORPUSCULAR HEMOGLOBIN CONCENTRATION (G/DL) BY AUTOMATED 29.7 g/dL Low 32.0-35.0 [facility] Comment on above: Performed By: #### L [id number] #### [facility] ([facility]) [address] [place] [address] Hematocrit (Bld) [Volume fraction] 39.0 % Normal 39.0-55.0 [facility] Comment on above: Performed By: #### L [id number] #### [facility] ([facility]) [address] [place] [address] Hemoglobin (Bld) [Mass/Vol] 11.6 g/dL Low 13.0-17.0 [facility] Comment on above: Performed By: #### L [id number] #### [facility] ([facility]) [address] [place] [address] Immature granulocytes (Bld) [#/Vol] 0.01 10*3/uL Normal 0.00-0.20 [facility] Comment on above: Performed By: #### L [id number] #### [facility] (BEAKER) [address] [place] [address] Immature granulocytes/100 WBC (Bld) 0.1 % Normal 0.0-1.0 [facility] Comment on above: Performed By: #### L [id number] #### [facility] (BEAKER) [address] [place] [address] Lymphocytes (Bld) [#/Vol] 2.22 10*3/uL Normal 1.20-4.00 [facility] Comment on above: Performed By: #### L [id number] #### [facility] (BEAKER) [address] [place] [address] Lymphocytes/100 WBC (Bld) 27.2 % Normal 20.0-45.0 [facility] Comment on above: Performed By: #### L [id number] #### [facility] ([facility]ER) [address] [place] [address] MCH (RBC) [Entitic mass] 21.3 pg Low 27.0-33.0 [facility] Comment on above: Performed By: #### L [id number] #### [facility] ([facility]ER) [address] [place] [address] MCV (RBC) [Entitic vol] 71.6 fL Low 82.0-98.0 [facility] Comment on above: Performed By: #### L [id number] #### [facility] ([facility]ER) [address] [place] [address] Monocytes (Bld) [#/Vol] 0.86 10*3/uL Normal 0.10-1.00 [facility] Comment on above: Performed By: #### L [id number] #### [facility] (BEAKER) [address] [place] [address] Monocytes/100 WBC (Bld) 10.5 % Normal 5.0-12.0 [facility] Comment on above: Performed By: #### L [id number] #### [facility] ([facility]AKER) [address] [place] [address] Neutrophils (Bld) [#/Vol] 4.88 10*3/uL Normal 1.60-7.60 [facility] Comment on above: Performed By: #### L [id number] #### [facility] ([facility]ER) [address] [place] [address] Neutrophils/100 WBC (Bld) 59.7 % Normal 40.0-72.0 [facility] Comment on above: Performed By: #### L [id number] #### [facility] ([facility]) [address] [place] [address] NRBC (PER 100 WBCS) BY AUTOMATED COUNT 0.0 % Normal 0 [facility] Comment on above: Performed By: #### L [id number] #### [facility] ([facility]) [address] [place] [address] PLATELETS (10*3/UL) IN BLOOD AUTOMATED COUNT 326 10*3/uL Normal 150-400 [facility] Comment on above: Performed By: #### L [id number] #### [facility] ([facility]) [address] [place] [address] RBC (Bld) [#/Vol] 5.45 10*6/uL Normal 4.20-5.70 [facility] Comment on above: Performed By: #### L [id number] #### [facility] ([facility]) [address] [place] [address] WBC (Bld) [#/Vol] 8.17 10*3/uL Normal 4.00-10.60 [facility] Comment on above: Performed By: #### L [id number] #### [facility] ([facility]) [address] [place] [address] COMPREHENSIVE METABOLIC PANE Daniel 11-03-2024 Albumin [Mass/Vol] 4.0 g/dL Normal 3.5-5.7 [facility] Comment on above: Performed By: #### L [id number] ####[facility] ([facility])[address] [place] [address] ALP [Catalytic activity/Vol] 59 U/L Normal 34-104 [facility] Comment on above: Performed By: #### L [id number] ####[facility] ([facility])[address] [place] [address] ALT [Catalytic activity/Vol] 14 U/L Normal 7-52 [facility] Comment on above: Performed By: #### L [id number] ####[facility] (BEAKER)[address] [place] [address] Anion gap [Moles/Vol] 12 mmol/L Normal 7-20 [facility] Comment on above: Performed By: #### L [id number] ####[facility] (BEAKER)[address] [place] [address] AST [Catalytic activity/Vol] 14 U/L Normal 13-39 [facility] Comment on above: Performed By: #### L [id number] ####[facility] (BEAKER)[address] [place] [address] Bilirubin [Mass/Vol] 0.4 mg/dL Normal 0.3-1.0 [facility] Comment on above: Performed By: #### L [id number] ####[facility] [place] [address] Calcium [Mass/Vol] 9.0 mg/dL Normal 8.6-10.3 [facility] Comment on above: Performed By: #### L [id number] ####[facility] (BEAKER)[address] [place] [address] Chloride [Moles/Vol] 104 mmol/L Normal 98-107 [facility] Comment on above: Performed By: #### L [id number] ####[facility] (BEAKER)[address] [place] [address] CO2 [Moles/Vol] 24 mmol/L Normal 21-31 [facility] Comment on above: Performed By: #### L [id number] ####[facility] (BEAKER)[address] [place] [address] Creatinine [Mass/Vol] 1.11 mg/dL Normal 0.70-1.30 [facility] Comment on above: Performed By: #### L [id number] ####[facility] (BEAKER)[address] [place] [address] GLOMERULAR FILTRATION RATE ML/MIN/1.73 SQ M.PREDICTED 75.5 mL/min/1.73m*2 Normal >60.0 [facility] Comment on above: Result Comment: The [facility]???s estimated glomerular filtration rate (eGFR) will no longer include consideration of race in its calculation. The National Kid[employer] Foundation???s eGFR Task Force developed new recommendations for the estimation of the glomerular filtration rate in the [place] They recommend immediate implementation of the new equation refit without the race variable in all laboratories because the calculation does not include race. In addition to not including race in the calculation and reporting, it included diversity in its development, and has acceptable performance characteristics and potential consequences that do not disproportionately affect any one group of individuals. Performed By: #### L [id number] ####[facility] (AKER)[address] [place] [address] Glucose [Mass/Vol] 101 mg/dL High 70-100 [facility] Comment on above: Performed By: #### L [id number] ####[facility] (BEAKER)[address] [place] [address] Potassium [Moles/Vol] 3.8 mmol/L Normal 3.5-5.1 [facility] Comment on above: Performed By: #### L [id number] ####[facility] (BEAKER)[address] [place] [address] Protein [Mass/Vol] 6.7 g/dL Normal 6.0-8.3 [facility] Comment on above: Performed By: #### L [id number] ####[facility] (BEAKER)[address] [place] [address] Sodium [Moles/Vol] 136 mmol/L Normal 136-145 [facility] Comment on above: Performed By: #### L [id number] ####[facility] (BEAKER)[address] [place] [address] Urea nitrogen [Mass/Vol] 21 mg/dL Normal 7-25 [facility] Comment on above: Performed By: #### L [id number] ####[facility] ([facility])[address] [place] [address] UREA NITROGEN/CREATININE (MASS RATIO) IN SER/PLAS 18.9 Normal [facility] Comment on above: Performed By: #### L [id number] ####[facility] ([facility])[address] [place] [address] LACTIC ACID, PLASMAon 2024 LACTATE (MMOL/L) IN SER/PLAS 0.9 mmol/L Normal 0.5-2.2 [facility] Comment on above: Performed By: #### L [id number] #### [facility] ([facility]) [address] [place] [address] MAGNESIUMon 11-03-2024 Magnesium [Mass/Vol] 1.8 mg/dL Low 1.9-2.7 [facility] Comment on above: Performed By: #### L [id number] #### [facility] ([facility]) [address] [place] [address] Office Visiton 11-03-2024 Follow-up visit [id number] Doris Luis 1965 M Date Provider Department Center 11/03/2024 [id number]-DAGOBERTO CORMIER CARD Margie English Family History Problem Relation Age of Onset Coronary artery disease Mother Coronary artery disease Father Family Status - Relation Status Age at Mother Father Level of Service:12523 [place] OFFICE/OUTPATIENT ESTABLISHED HIGH MDM 40 MIN Normal [facility] PHOSPHORUSon 11-03-2024 Magnesium [Mass/Vol] 3.2 mg/dL Normal 2.5-5.0 [facility] Comment on above: Performed By: #### L [id number] #### [facility] ([facility]) [address] [facility] [place] [place] [address] PROTIME-INRon 11-03-2024 INR IN PPP BY COAGULATION ASSAY 2.45 High 0.90-1.10 [facility] Comment on above: Result Comment: ACCC P RECOMMENDED INR FOR WARFARIN THERAPY CONDITION INR PROPHYLAXIS OF VENOUS THROMBOSIS 2-3 (HIGH-RISK SURGERY) TREATMENT OF VENOUS THROMBOSIS 2-3 TREATMENT OF PULMONARY EMBOLISM 2-3 PREVENTION OF SYSTEMIC EMBOLISM: 2-3 ACUTE MYOCARDIAL INFARCTION TISSUE HEART VALVES VALVULAR HEART DISEASE ATRIAL FIBRILLATION RECURRENT SYSTEMIC EMBOLISM MECHANICAL HEART VALVE 2.5-3.5 FROM: ORAL ANTICOAGULANTS. MECHANISM OF ACTION, CLINICAL EFFECTIVENESS, AND OPTIMAL THERAPEUTIC RANGE. CHEST 1995;108:231S-246S. Performed By: #### L [id number] #### [facility] [address] [place] [address] PROTHROMBIN TIME (PT) IN PPP BY COAGULATION ASSAY 26.0 Seconds High 12.3-14.8 [facility] Comment on above: Performed By: #### L [id number] #### [facility] ([facility]) [address] [place] [address] TROPONIN Ion 11-03-2024 Troponin I.cardiac [Mass/Vol] 0.03 ng/mL Normal 0.00-0.04 [facility] Comment on above: Performed By: #### L [id number] #### [facility] [address] [place] [address] Office Visiton 08-03-2024 Follow-up visit [id number] Doris Luis 1965 M Date Provider Department Center 08/03/2024 Polly-JASVIR CANTU Family History Problem Relation Age of Onset Coronary artery disease Mother Coronary artery disease Father Family Status - Relation Status Age at Mother Father Level of Service:[address] [place] OFFICE/OUTPATIENT ESTABLISHED MOD MDM 30 MIN Reason for Visit and Comments: Coronary Artery Disease [187] Hypertension [891074] Hyperlipidemia [182] Normal [facility] Ambulatory Visit Summaryon 0 02-10-2024 Ambulatory Visit Summary DORIS LUIS :1965 Visit Date:02/10/2024 Ambulatory Visit Instructions Your Diagnosis Kidney stone Your Care Team Attending Physician - Samanta GRIFFIN, XIOMARA, Elsy Skaggs Primary Care Physician - Noe Caballero MD [...] Cardiac catheterization, Cataract extraction, Excision of lipoma, Toledo filter, History of lumbar spine surgery, Meniscal [...] for choosing us for your care. Normal [facility] Formson 12-31-2023 Forms [id number]#1 .00TIFF Normal [facility] CHEMISTRYOrdered By: SYSTEM SYSTEM on 12-30-2023 [...] for this result was chemiluminescence using Jamaal Circl's Access Hybritech PSA reagent. PSA Screen, Totalon 12-30-19 Prostate specific Ag [Mass/Vol] 1.7 ng/mL Normal 0.1-3.5 [facility] Comment on above: Result Comment: The concentration of PSA determined by different manufacturers can vary due to differences in assay methods and reagent specificity. Values obtained from different assay methods cannot be used interchangeably. The methodology used for this result was chemiluminescence using Jamaal Kevil's Access Hybritech PSA reagent. Performed By: #### 1 [id number] ####[facility] [address] [place] [address] Patient Educationon 12-30-19 Patient Education Nephrology Dietary [...] Spinach (cooked), rhubarb, beets, sweet potatoes, and Surinamese chard. ? Peanuts. ? Potato chips, greenlandic fries, and baked potatoes with skin on. ? Nuts and nut products. ? Chocolate. ? If you regularly take a diuretic medicine, make sure to eat at least 1 or 2 servings of fruits or vegetables that are high in potassium each day. These include: ? Avocado. ? Banana. ? Dupont, prune, carrot, or tomato juice. ? Baked [...] fish oil, or vitamin B6. ? Take vcji-ufx-zdlnguk and prescription medicines only as told by your health care provider. These include supplements. What foods sh (more content not included)... Normal [facility] Urology Office/Clinic Noteon 12-30-2023 Urology Office/Clinic Note Chief Complaint 6 mo f/u w/ Renal US HPI Staff Former DLS pt 6m MAKENNA & PSA (pt RS'd) DX: Kidney Stone, BPH & Renal Cyst *No Urology Meds Last Tx'd for stones in 2021 Stone Analysis 02/18/23 ([facility]) *Uric Acid KUB 03/12/23 [...] resolved when stone passed. Stone Analysis 02/18/23 ([facility]) *Uric Acid MAKENNA 12/13/23 - 2 mm [...] When Contact Information XIOMARA England APRN, Elsy X, FAM, URL In 1 year Additional Instructions: w/PSA ELIJAH ALLEN, EDGAR Paniagua, URL [address] [facility] [place] [address] Additional Instructions: XIOMARA England APRN, Elsy Sharifa, FAM, URL Additional Instructions: Patient Education Dietary [...] extraction, Excision of (more content not included)... [facility] Comment on above: Result Comment: Elec tronically Signed By: XIOMARA England APRN, Aurora X\.br\Date and Time Signed: 12/30/23 12:27 EDT\.br\Electronically Co-Signed By: EDGAR DANIELLE PA-C RAD - Ultrasound Reporton RAD - Ultrasound Report [id number]#1 .00TIFF [facility] Outside Colonoscopyon 2022 Outside Colonoscopy [id number]#1 .00TIFF [facility] Reminderson 09-18-2023 Reminders - From: Delilah Fink LPN To: N - Clinical; Sent: 09/18/2023 12:45:06 EST Show up: 08/18/2033 07:00:00 EST Subject: colonoscopy recall Due Date/Time: 09/17/2033 07:00:00 EST Reminder/Recall Patient due for screening colonoscopy 09/17/2033. [facility] Reminderson 09-12-2023 Reminders - From: Aisha [...] states pt is scheduled 09/19/23 @ 0900. [facility] Physician Referralon 023 Physician Referral [id number]#1 .00TIFF [facility] Consent for Procedure/Surger yon 09-01-2023 Consent for Procedure/Surgery [id number]# 1.00TIFF [facility] Ambulatory [...] EDGAR DANIELLE PA-C Where: [facility] Physician Referralon 023 Physician Referral [id number]#1 .00TIFF [facility] Physician Referralon 023 Physician Referral [id number]#1. 00TIFF [facility] Physician Referralon 023 Physician Referral [id number]#1 .00TIFF [facility] Lab Reportson 03-21-2023 Lab Reports [id number]#1 .00CD:127 [facility] Lab Reports [id number]#1. 00CD:127 [facility] RAD - MISCon 03-21-2023 RAD - MISC [id number]#1 .00CD:127 [facility] Lab Reportson 03-18-2023 Lab Reports [id number]#1 .00CD:127 [facility] Lab Reports [id number]#1 .00CD:127 [facility] Ambulatory Visit Summaryon 0 03-12-2023 Ambulatory [...] pyelography (07/06/2014), Hemorrhoidectomy (2009), Excision of lipoma, Toledo filter, History of lumbar spine surgery, Meniscal repair, Tonsillectomy. Discharge Vitals Heart Rate (Peripheral) 72 Respiratory Rate 16 Blood Pressure 126/78 Height 177.8 cm Height 70 in Weight 105 kg Weight 231 lb BMI 33.21 What to do next Scheduled Follow-Up Appointments Friday 10:00 AM EST With: EDGAR DANIELLE PA-C Where: [facility] Historical Records Officeon 03-10-2023 Historical Records Office [id number]#1 .00CD:127 [facility] Coding Summaryon 02-28-2023 Coding Summary HTMLBase 64 SmitssuwLMm3pJk+PGhlY WQ+YY0ZQWAkJ55otWCqdJ 5eQ6YISKcZFlmyIUVQNQa KToYyzyOiBE8zrKZtRWKs IC8+HZ4aRIPkCgcgxNNuj 8D3uMZ9F75tyj8sANgboE G3LDZwQzImxpvjy7wszHb 6IDcuNmluOyBt ZWZriL40HIE2dP31Id99i VYopOHff0udbAy9VfDkFM PyTFS3kDlfXEivn1FhZBA yE09kdHPgp0Q1 UPMwtOlihUJvRwUdlIU3b P4dILykepvir0ayrfbyJz e4uv24xNJnu5O1eFD3E6J iilF9PRSmvTEa BdgydHSAsD6knmbeo8vch zfwUoQqKWZmGGi0LPv5JM DhiFrgSyScSD72VKG6WHJ ldsLbE3VlYNRy nPhtMrG7f2X8Gk8TT4RXE nodG4WYCYKHWQgxjDP+PC 64ve88Q3YkClviUjh8CIM zYTM3sNR9bT8y SWSvQSjsv7B4jHS4S3Dgs mVmyw1sa9zhAERgIFpiI5 3nsAXxi2B2XOZdeWN4QTB lhAxgOuJwqI41 Oyc+WJXkrAdxu9JeSxjtu 0pny2gkdDe4EeooCHWbiy JzjNfuBCX0j8YgPq8wAFQ xcOI1zCE4zX0m StKzWwC5QYtkJ693TjLbq CFdGvjkE02aD0BrsDB+PH UzKcd4JXOxmWslNC5pU1B hZGRpbmctbGVm xToiKV4eXDFultblQABpm L8tEUWtQ2b8YkHnLuS7AJ tvC6FiCOBubhylZj12oW0 xKuVnHuC2UZcj C7TdrhJ4AQTziFTjJWrsQ FK1F65cw3O6MEKzHAPgBL K4oQB6jH9xxHxyjptvfQV mdDsgdmVydGlj BSrnVRruA420BUOvkWlqW kNvZGluZyBEYXRlOiAgMD YvMDIvMjAyMzwvdGQ+PHR qOBD1dZodUQVk hFMsCGyeKa5gnChlrIuzX F7uESBghqvyYZPtuK6nFP VblYZpgSkyGQ5gRFOnyyp ch986KeBxLJB3 RFUcfGWtM6YpgU3nRiAaZ LLaCKJkK9WyqBBkHDwzG4 93JYmaVgK0WJJjaeBvY1P sLWFsaWduOiB0 t2K4Ho4Wu6ZtewytY8Lgd SPnOgWzPrgrBDa9V4RpWf wvdHI+GU85UGVcQC68FJh 9XJK5xEmwVEqt NYHlC5MhzE9gZhEoIDBhE GRkOyc+PHRhYmxlIHdpZH RoPScxMDAlJyBzdHlsZT0 mQw4xXPRlAZYy gTnuyWQkJcWzl3meTDCiA XiaQZ1pzXnyT6FjdRT5TO Azo7g9Cx02K92nF9PxdHI +BNXjxJS2zEF6 wP6gWhBjCrA7ZInpK989F kPlwVQkVpalz7yot0aopU x6LoA5JWBszkLneVqaQYS 0w2KvXm27N78o IHdpZHRoPSIxNSUiIHZhb Xfoby1opY7jHl9+PGNvbC G8xTB5yA3nIdEkGoW2SMg wD456PeVghHPe Bziua9xtd5ofyZa2YiVfP HLnzlEodZhgTEO9z1SiDi 62D8FxdXdub4XxLqz5yl9 6qPHqy9T9iTG2 F2EbJVDinbxjfAVffFyxV P3uJXGxegesSGCdoT0yMP WuY8w8GfSeWqW7JYhuB7G yfoV3JCIpuSGo PEAtxBIXyL4nrjolw4pho bqhBxWiSOQzBXr6AIr1HI HrjNeiArMrBQP9FbZ2GUS 7tEJegZ0doWyj zuvfuF5mFsw+NVL1rPFye JOMUW9aTnyfdCO+PHRkIH T5aYcyFJjbGLAecO0pNKY qY2t3TsRsCaQ6 ITlpL9RwlvI4UOIweIEgH NFstYCArN8srxrwm6ahua pgMkGuMRGmSOq6NDr4LEE saWduOiBsZWZ0 HqM4JVS9zPAamV8rqPzmd iqvaJ9xCkr+QmlydGggRG T9MMx0R9JbVpc3FYFnmDz eSK4fhKZxUAoy Jr0xuFyayAzdLB1bDUAot wumz829EcDdf9spMUEbbB QkXJuiLVS3T49em9E8GPJ oPTDjGNY4lAK3 pH7foAhcbdgaoSXkeIpjd hNoeHddBGwbFVvdS653VV PffCkfCiLzXVq2K5WsDfu 3ITOzyAljJS5a zDGkQSocUw1uoMxkrIyuX E3mGTMlbvofx110TrMew6 dsRXHhfHSpFSikXPQ5N43 rw3D0TJBwFRTg NPN6rJZ7xT7seExkipcro GVmdDsgdmVydGljYWwtYW nuJ658MKSppLyfQkBxdHp 9G0LnYot8QTRf aWfeGB2vaEEeCBulEv9vg MfuhWcjSZ9wMBJonakvj9 39BqSfz2rjWAOkyUUdPWw xEZK2U87on1O3 EGJcBAHvPFT1wDW0sJ8au GlnbjogbGVmdDsgdmVydG hmEDqoJScvM691ZDKbbGv nPlBhdGllbnQg QVgxZNp0M1SpAvrhcLY+P P65RJUaXQ50jUIfwAKny7 tozVl7JzEfQICbROI9vRe jDWwar1VyAZLj A66rtBFdr5F4AFWvwWsxx OLsZpBujNM9hF3eGPjzev cup7cwkkyaDofey0wsib1 0mV56F85rVIxi ZHRoPSIzMCUiIHZhbGlnb y3byO3tQn4+KMEgxKZ5lQ Q9lY4lJHRlEbJ6IKovT21 9InRvcCIvPjxj q4qcy5oyqVs7LjW1VWBig nDmhMcwCSF9q6CbIs14V4 9sIHdpZHRoPSIyMCUiIHZ keZstus8vjP1i Ii8+RIVktKO8mEB1nE0pO xWwDvQ4EMtvQ969FiTndX PcEskjB10jS7LphJQ+PHR rMum2MKWpzLxp HB7jvASxKLzvJl4wUNX0F rZjGiHzZRznO6ViBEEhwt lkfpwezXM7WMHvTTWzdG0 1Ie2tzFhvBFKr lSGYvE4bdshgn9xekbchU gPbHMKmJCg7OQi6QDPeoF mvEfYkBOX3BtH0DOV5hGP kpP2gzIzszlmv hM9iH6ZtUTBonjoaRp32i U0qBuXwTsT4VGnzNnl+SE XTS3RDQIOUEJXZTBLIOGP UH7WMQOwcnRN+ NBWxHSV2pDavWMplPVUyb F8jTLIeQ1d1WkMrZmH9DJ kcJ6FcJZTodtydIo79tK5 hReIbRcI6VSen W9TngqY8PFHzvJGwGMaxF OO4Y20cm5Q9FPJlRGPjEU D9eCM7zQ7usSokdlzvlNF mdDsgdmVydGlj BDrmKZolD725OEDhoMceI jI0EmL8VeF3AjQ2K7ZpHc t9JUAuvNvdSQ8vqQFzSPx lQf2pyNjfvPgn HA5oYXErlhieGXEuwG8wU USjvKSriChxAC4nHCKcyq mif531PkDdGYY0EYEqcCV wH2ItlH6xGkBi UJPsEWJwB0GykMEzZNugI 043XItcHfW3ITUumaXbR5 ZiCXKctTepZnS9p8T5Zq3 1OSBZZWFyczwv dGQ+PJVzNXG3rDsiWMerH QQfxM4rGEEtY3t1OkEtFg H2IKiiX5IfGHHsghheFj1 5cB3jLfKbWiI6 HSnvC5GhobH5PSVquFOzJ MzwWQW7D29sl6J6PHPyCW DoWWD2wKA0zD3wvNvfgth gbGVmdDsgdmVy zMdpKKsyUUxiR042ASRps FduIu0EQHL2C3LmIkm4YE YrrRnaEK4eqXCoJFxoSl2 sfDekzAhvOU4g VECfqorpNKPfpY8dKROrq KJtoXlsSK5hJTDyocmpz0 76VhFlFQE2OAWvfSUwA6K vxH3rPxLxLUSz CSQxS7LrfSQrQCgmB706F JrqLjE1QZXpqxRcV8AsJC IjrBvdJdG8y5H8Uq0RKZr vdGQ+BA84zb42 X1VoAdblQsv7MWCxUPC9x JU7vV2xRJJzBLgjd6V5tN M5K4AaxvPwyw8fv1zdOVE sLNceJ20msEGz r2N5LLBboCP3DHXvuMouH qCiqF45Nby+PGNvbGdyb3 TdZhlbn6soe5pioCk7EyT wJSIgdmFsaWdu OTD0r2AgVq77Z28vYMcdW HRoPSIzMCUiIHZhbGlnbj 0ddT8vKk0+JHVocLT4pEN 2jK1zYhAoMpH0 FJoiZ129MhMenEBgIwmtc 4wpy9hpvBd4XqXjPOLvwe CpnLrnDHT9q4XkOg37P9U vjYavy2SeJsu1 qm03wGHjg1I9eBR6C9RxM QPfeykseGAisZqtGX1cMJ KchvchWIDneP6pDDXmG8y 1PvCvLlR8ABqd X0SrhaM6YBIquXFlFMJsg SBIwK9ecvtsz9hrbfekJw MvYSItEIj9WUt0XDSavJh aSgQwKGI0XnS2 FBB6oQRgdB3vcTcnoynss G9wOyc+VDf3i2giyYPxBP 6qkZC4HQ59GN59fYMml4H 5pEK9N6JnZXOk lollswxqbJL4OSElZWYsd O18Fl4jgJwzQj9fYOXcAH U0OCThvPSwA0CxpX9pArS cYHOaNTRwG8Oh gVMiUFtzZ571DOqxKeM5V JRofmWvS1LdBBCpxRpsBn X8h7I8Wj3ENN04OL34ZG0 0vWHqq6Y9lXH3 J7DeAZNsqbfdxendjQC8N APuWQRynB75Ua0kmTchCf 8rPTXiZCL0TIBvuNVzO3C toZ6eFqZlNKYb WXJyX7WrcIRbXQaoM393Q NxaYsA0VERixbJsF5SzSF NbxTxvXwA8z6U3Zc0RQs9 3RA81CH60iQEk e4Z8vKC2P4RcVUApmexfj lxceAW2YBYzXLZnzD56Vb 5frJszTb6bWYMgRWZ8QSX wuRJoT7DcoC9e NoRzCJSbRNWcN1ChkVXxL RjnA167OEqzWaV9YTXnky ZxA5WjFKJfyVvuPeT3q7B 4Kh5GNBiidra0 I7LpEppwyOT+WS15BBRqX D03mJZicWTbb0gsdGo2Ke StPOIlTKH9uAmaCItao7C jLGIxT34rgDRu c2U (more content not included)... Normal [facility] Calculus Analysison 02-27-20 23 Color (Stone) Dupont Invalid Interpretation Code [facility] Comment on above: Performed By: #### 1 [id number] ####[address] [place] [address] Composition Comment Invalid Interpretation Code [facility] Comment on above: Result Comment: Perc entage (Represents the % composition) Performed By: #### 1 [id number] ####[address] [place] [address] Disclaimer: Comment Invalid Interpretation Code [facility] Comment on above: Result Comment: This test was developed and its performance characteristics determined by [facility]. It has not been cleared or approved by the Food and Drug Administration. Performed at: [facility] Stone Analysis [address] [place] [address] Dr Deras, [place] [id number] PhD Sahra Helton Performed By: #### 1 [id number] ####[facility] [address] [id number] Laboratory comment Lazaro (Report) Comment Invalid Interpretation Code [facility] Comment on above: Result Comment: Trav nguyen questions regarding Calculi Analysis [facility] at: [phone]. Performed By: #### 1 [id number] ####[address] [place] [id number] Please Note: Comment Invalid Interpretation Code [facility] Comment on above: Result Comment: Calc cheikh report will follow via computer, mail or warehouse team member delivery. Performed By: #### 1 [id number] ####[address] [place] [address] Size (Stone) [Entitic vol] 3x5 Invalid Interpretation Code [facility] Comment on above: Result Comment: Sing le piece received. Performed By: #### 1 [id number] ####[address] [address] Specimen source subject Nom Comment Invalid Interpretation Code [facility] Comment on above: Result Comment: Not provided Performed By: #### 1 [id number] ####[address] [address] Stone Photo Comment Invalid Interpretation Code [facility] Comment on above: Result Comment: Phot ograph will follow under a separate cover Performed By: #### 1 [id number] ####[address] [address] Urate (Stone) [Mass fraction] 100 % Invalid Interpretation Code [facility] Comment on above: Performed By: #### 1 [id number] ####[address] [address] Weight (Stone) 35 mg Invalid Interpretation Code [facility] Comment on above: Performed By: #### 1 [id number] ####[address] [address] ED Clinical Summaryon 2022 ED Clinical Summary [facility] ? Urgent Care [address] [place], [place] [id number] Clinical Summary PERSON INFORMATION Name: DORIS LUIS Age: 57 Years Sex: MALE : 1965 MRN: Acct#: Visit Reason: Skin problem; FISH HOOK LT THIGH Arrival: 02/26/2023 14:18:24 Discharge: 02/26/2023 15:11:00 LOS: 000 00:53 Check In: 02/26/2023 14:18:24 Checkout: 02/26/2023 15:11:00 Address: [facility] MARILYN [facility] [address] PCP: NOE CABALLERO PROVIDER INFORMATION Provider Role Assigned Unassigned ALFIE SLAUGHTER ED 02/26/2023 14:20:09 Ivan Pringle JUNIOR NETWORK ADMINISTRATOR Nurse 02/26/2023 14:20:24 Asya Luther JUNIOR NETWORK ADMINISTRATOR Nurse 02/26/2023 14:30:49 VITALS INFORMATION Vital Sign [...] distress: No -Vitals: reviewed. SKIN: -Gross abnormalities: Eolia appreciated in the left medial lower thigh just above the knee NECK: -Supple (okmj-dh-pxmjp): non-tender. CARD: -Rate and rhythm: Regular RESP: [...] Fish hook injury of left lower leg ([id number]-UD S89.92XA). Orders Orders Patient Care: Wound Care Routine (Order): 02/26/2023 14:48 EDT Pharmacy: bacitracin topical (Order): 1 michale, TOP, Once tetanus/diphth/pertus s (Tdap) adult/adol (Order): [...] Wound Care, Adult Follow-Up: With: Address: When: [place] [id number] Business (1) Within 3 to 5 days DIAGNOSIS: Fish hook injury of left lower leg Patient Understands: Yes - Patient/family/caregi josee verbalizes understanding of instructions given Comment: [facility] ED Note - Physicianon 2022 ED [...] distress: No -Vitals: reviewed. SKIN: -Gross abnormalities: Eolia appreciated in the left medial lower thigh just above the knee NECK: -Supple (bguy-zd-irzdd): non-tender. CARD: -Rate and rhythm: Regular RESP: [...] Fish hook injury of left lower leg (KDT46-OX S89.92XA). Orders Orders Patient Care: Wound Care [...] on: 02/26/2023 14:57 EDT] ALFIE SLAUGHTER Normal [facility] ED Patient Summaryon 023 ED Patient Summary [facility] ? Urgent Care [address], [place] [id number] PATIENT DISCHARGE INSTRUCTIONS Patient Information Name: DORIS LUIS Age: 57 Years Date of : 1965 [facility]: [id number] Reason For Visit: Skin problem; FISH HOOK LT THIGH Arrival Time: 02/26/2023 14:18:24 Primary Care Physician: NOE CABALLERO Attending Physician: ALFIE SLAUGHTER Comment: Patient Education With: Address: When: NOE ADA [address] [facility], [place] [address] Business (1) Within 3 to [...] at home: Medicines ? 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 ? Change your dressing as told by [...] washing o (more content not included)... Normal [facility] Recordon 023 Urgent Care Record [facility] ? Urgent Care [address] [place] [address] PATIENT DISCHARGE INSTRUCTIONS Patient Information Name: DORIS LUIS Age: 57 Years Date of : 1965 Reason For Visit: Skin problem; FISH HOOK LT THIGH Arrival Time: 02/26/2023 14:18:24 Primary Care Physician: NOE CABALLERO Attending Physician: ALFIE SLAUGHTER Comment: Visit Diagnosis: Diagnoses This Visit Fish hook injury of left lower leg (S89.92XA) Skin problem ([id number]) If you received any narcotics, sedation, or [...] legal documents With: Address: When: NOE CABALLERO [address] [place] [address], [place] [address] Business (1) Within 3 to 5 days Medication Information: The exam and treatment you received today in the [facility] were for an urgent problem and are not intended as complete care. It is important for you to follow up with a doctor, nurse practitioner, or physician?s prosthetic assistant for ongoing care. If your symptoms [...] so we can reach you if necessary. [facility] has provided you with a complete list of medications post discharge. Please inform your material controller/provider of your visit and for further instruction [...] washing out the (more content not included)... [facility] Historical Records Officeon 02-20-2023 Historical Records Office [id number]#1 .00CD:127 [facility] Physician Referralon 023 Physician Referral [id number] .00CD:127 [facility] Ambulatory Visit Summaryon 0 02-18-2023 Ambulatory Visit Summary DORIS LUIS :1965 Visit Date:02/18/2023 Ambulatory Visit Instructions Your Diagnosis Kidney stone Prostate cancer screening BPH without obstruction/lower urinary tract symptoms Renal cyst Tests Performed Urnls Dip Stick Auto w/o Microscopy POC 92190 US Renal -- Results Pending -- Please [...] EDGAR DANIELLE PA-C Where: [facility] Patient Educationon 02-19-20 Patient Education Urology Kidney [...] these instructions at home: Medicines ? Take zvsa-ule-zbexhxk and prescription medicines only as told by [...] provider. Document Revised: 05/20/2022 Document Reviewed: 05/20/2022 [employer] Patient Education ? 2022 [employer] Martha [facility] Urology Office/Clinic Noteon 02-18-2023 Urology Office/Clinic [...] E&M of Est. Patient Moderate 30-39 Min 93078 PSA Total Urnls Dip Stick Auto w/o Microscopy POC 06887 US Renal 2. Prostate cancer screening (Z12.5: Encounter for screening for malignant neoplasm of prostate) PSA 07/03/22 - 1.36 will need repeat this fall. order placed. No additional PSA in [facility] system (gets labs annually for PCP but doesn't look like this was included). Ordered: E&M of Est. Patient Moderate 30-39 Min 94649 PSA Total 3. BPH without obstruction/lower urinary tract symptoms (N40.0: Benign prostatic hyperplasia without lower urinary tract symptoms) Pt is currently taking no bladder/prostate medication and is highly satisfied with overall symptom control. No indication for treatment at this time. Continue to monitor. Ordered: E&M of Est. Patient Moderate 30-39 Min 53016 PSA Total 4. Renal cyst (N28.1: Cyst of kidney, acquired) Pt's Renal US shows bilat simple cysts, largest 6cm on right. Ordered: E&M of Est. Patient Moderate 30-39 Min 44573 PSA Total f/u 6 mos w MAKENNA and PSA prior Follow-up With When Contact Information ELIJAH ALLEN, EDGAR Paniagua, URL Within 6 months [address] [place] [address] [facility] (1) Additional Instructions: Patient Education Kidney Stones, Wzmw-iz-Zbln Problem List/Past Medical History Ongoing Anticoagulated Anxiety [...] Cystoscopy and retrograde pyelography (07/06/2014), Back care, Toledo filter, Hemorrhoidectomy, History of knee surgery, Tonsillectomy. [...] 1 cap(s), (more content not included)... Normal [facility] Comment on above: Result Comment: Elec tronically Signed By: ELIJAH ALLEN, EDGAR Paniagua\.br\Date and Time Signed: 02/18/23 15:31 EDT CBC AUTO DIFFon 01-31-2023 BASO # 0.1 103/ul Normal 0.0-0.1 [facility] Comment on above: Performed By: #### P T #### [facility] [address] [address] [address] Curly Connell Basophils/100 WBC (Bld) 0.9 % Normal 0.2-2.0 [facility] Comment on above: Performed By: #### P T #### [facility] [address] [address] [address] Curly Connell EO # 0.1 103/ul Normal 0.0-0.7 [facility] Comment on above: Performed By: #### P T #### [facility] [address] [address] [address] Curly Connell Eosinophils/100 WBC (Bld) 1.2 % Normal 0.9-7.0 [facility] Comment on above: Performed By: #### P T #### [facility] [address] [place] [address] Dr. Curly Connell Erythrocyte distribution width (RBC) [Ratio] 19.1 % Critically high 11.0-15.0 [facility] Comment on above: Performed By: #### P T #### [facility] [address] [place] [address] Dr. Curly Connell Hematocrit (Bld) [Volume fraction] 42.3 % Normal 42.0-54.0 [facility] Comment on above: Performed By: #### P T #### [facility] [address] [place] [address] Dr. Curly Connell Hemoglobin (Bld) [Mass/Vol] 12.1 g/dL Critically low 14.0-18.0 [facility] Comment on above: Performed By: #### P T #### [facility] [address] [place] [address] Dr. Curly Connell IG # 0.02 10e3/ul Normal 0.00-0.03 [facility] Comment on above: Performed By: #### P T #### [facility] [address] [place] [address] Dr. Curly Connell IG % 0.2 % Normal 0.0-0.5 [facility] Comment on above: Performed By: #### P T #### [facility] [address] [place] [address] Dr. Curly Connell LYMPH # 2.2 103/ul Normal 1.2-3.8 [facility] Comment on above: Performed By: #### P T #### [facility] [address] [place] [address] Dr. Curly Connell Lymphocytes/100 WBC (Bld) 24.3 % Normal 20.5-60.0 [facility] Comment on above: Performed By: #### P T #### [facility] [address] [place] [address] Dr. Curly Connell MANUAL DIFF REQ NO Normal [facility] Comment on above: Performed By: #### P T #### [facility] [address] [place] [address] Dr. Curly Connell MCH (RBC) [Entitic mass] 21.1 pg Critically low 25.9-34.0 [facility] Comment on above: Performed By: #### P T #### [facility] [address] [place] [address] Dr. Curly Connell MCHC (RBC) [Mass/Vol] 28.6 g/dL Critically low 29.9-35.2 [facility] Comment on above: Performed By: #### P T #### [facility] Laboratory [address] [place] [address] Dr. Curly Connell MCV (RBC) [Entitic vol] 73.8 fL Critically low 80.0-94.0 [facility] Comment on above: Performed By: #### P T #### [facility] [address] [place] [address] Dr. Curly Connell MONO # 0.8 103/ul Normal 0.3-0.8 [facility] Comment on above: Performed By: #### P T #### [facility] [address] [place] [address] Dr. Curly Connell Monocytes/100 WBC (Bld) 9.2 % Normal 1.7-12.0 [facility] Comment on above: Performed By: #### P T #### [facility] [address] [place] [address] Dr. Curly Connell NEUT # 5.9 103/ul Normal 1.4-6.5 [facility] Comment on above: Performed By: #### P T #### [facility] [address] [place] [address] Dr. Curly Connell Neutrophils/100 WBC (Bld) 64.2 % Normal 43.0-75.0 [facility] Comment on above: Performed By: #### P T #### [facility] [address] [place] [address] Dr. Curly Connell Platelet mean volume (Bld) [Entitic vol] 10.0 fL Normal 9.5-13.5 [facility] Comment on above: Performed By: #### P T #### [facility] [address] [address] [address] Curly Connell PLT 340 103/ul Normal 150-450 [facility] Comment on above: Performed By: #### P T #### [facility] [address] [address] [address] Curly Connell RBC 5.73 106/ul Normal 4.70-6.10 [facility] Comment on above: Performed By: #### P T #### [facility] [address] [address] [address] Curly Connell WBC 9.1 103/ul Normal 4.0-11.0 [facility] Comment on above: Performed By: #### P T #### [facility] [address] [place] [address] Dr. Curly Connell GLYCOHEMOGLOBIN A1Con 2022 ADA RECOMMENDATION SEE BELOW Normal [facility] Comment on above: Result Comment: ADA RECOMMENDED LIMIT 4.0 - 6.0 ADA THERAPEUTIC TARGET < 7.0 ACTION SUGGESTED > 7.0 Performed By: #### P T #### [facility] [address] [place] [address] Dr. Curly Connell Glucose [Mass/Vol] 151 mg/dL Normal [facility] Comment on above: Performed By: #### P T #### [facility] [address] [place] [address] Dr. Curly Connell HbA1c (Bld) [Mass fraction] 6.9 % Critically high 4.5-6.2 [facility] Comment on above: Performed By: #### P T #### [facility] [address] [place] [address] Dr. Curly Connell LIPID PROFILEon 01-31-2023 CHOL-HDL RATIO NORM SEE BELOW Normal [facility] Comment on above: Result Comment: 3.3 - 4.4 LOW RISK 4.4 - 7.1 AVERAGE RISK 7.1 - 11.0 MODERATE RISK >11.0 HIGH RISK Performed By: #### P T #### [facility] [address] [place] [address] Dr. Curly Connell Cholesterol [Mass/Vol] 149 mg/dL Normal <=200 [facility] Comment on above: Performed By: #### P T #### [facility] [address] [address] [address] Curly Connell Cholesterol in HDL [Mass/Vol] 41 mg/dL Normal 40-60 [facility] Comment on above: Performed By: #### P T #### [facility] [address] [address] [address] Curly Connell Cholesterol in LDL [Mass/Vol] 77.8 mg/dL Normal [facility] Comment on above: Performed By: #### P T #### [facility] [address] [address] [address] Curly Connell Cholesterol.total/Chol esterol in HDL [Mass ratio] 3.6 {ratio} Normal [facility] Comment on above: Performed By: #### P T #### [facility] [address] [place] [address] Dr. Curly Connell HDL NORMAL > or = 60 mg/dl - LO W CARDIOVASCULAR RISK <40 mg/dl - HIGH CARDIOVASCULAR RISK Normal [facility] Comment on above: Performed By: #### P T #### [facility] [address] [place] [address] Dr. Curly Connell LDL CALC NORMAL SEE BELOW Normal [facility] Comment on above: Result Comment: <100 mg/dl OPTIMAL 100 - 129 mg/dl NEAR OR ABOVE OPTIMAL 130 - 159 mg/dl BORDERLINE HIGH 160 - 189 mg/dl HIGH >190 mg/dl VERY HIGH Performed By: #### P T #### [facility] [address] [place] [address] Dr. Curly Connell Triglyceride [Mass/Vol] 151 mg/dL Critically high <=150 [facility] Comment on above: Performed By: #### P T #### [facility] [address] [place] [address] Dr. Curly Connell VLDL CALC 30.2 mg/dL Normal [facility] Comment on above: Performed By: #### P T #### [facility] [address] [address] [address] Curly Connell PROF 14(COMP METB)on 023 Albumin [Mass/Vol] 3.6 g/dL Normal 3.4-5.0 [facility] Comment on above: Performed By: #### P T #### [facility] [address] [place] [address] Dr. Curly Connell Albumin/Globulin [Mass ratio] 0.8 {ratio} Normal [facility] Comment on above: Performed By: #### P T #### [facility] [address] [place] [address] Dr. Curly Connell ALP [Catalytic activity/Vol] 66 U/L Normal 46-116 [facility] Comment on above: Performed By: #### P T #### [facility] [address] [place] [address] Dr. Curly Connell ALT [Catalytic activity/Vol] 21 U/L Normal 16-63 [facility] Comment on above: Performed By: #### P T #### [facility] [address] [place] [address] Dr. Curly Connell Anion gap [Moles/Vol] 9.6 mmol/L Normal [facility] Comment on above: Performed By: #### P T #### [facility] [address] [place] [address] Dr. Curly Connell AST [Catalytic activity/Vol] 15 U/L Normal 15-37 [facility] Comment on above: Performed By: #### P T #### [facility] [address] [place] [address] Dr. Curly Connell Bilirubin [Mass/Vol] 0.4 mg/dL Normal 0.2-1.0 [facility] Comment on above: Performed By: #### P T #### [facility] [address] [place] [address] Dr. Curly Connell Calcium [Mass/Vol] 9.2 mg/dL Normal 8.5-10.1 [facility] Comment on above: Performed By: #### P T #### [facility] [address] [place] [address] Dr. Curly Connell Chloride [Moles/Vol] 106 mmol/L Normal 98-107 [facility] Comment on above: Performed By: #### P T #### [facility] [address] [place] [address] Dr. Curly Connell CO2 [Moles/Vol] 28.2 mmol/L Normal 21.0-32.0 [facility] Comment on above: Performed By: #### P T #### [facility] [address] [address] [address] Curly Connell Creatinine [Mass/Vol] 1.23 mg/dL Normal 0.70-1.30 [facility] Comment on above: Performed By: #### P T #### [facility] [address] [place] [address] Dr. Curly Connell EGFR-AF CITIZEN OF [place] >60 Normal >=60 [facility] Comment on above: Performed By: #### P T #### [facility] [address] [place] [address] Dr. Curly Connell EGFR-NON AF CITIZEN OF [place] 60 mL/min/1.73m2 Normal >=60 [facility] Comment on above: Performed By: #### P T #### [facility] [address] [place] [address] Dr. Curly Connell Globulin (S) [Mass/Vol] 4.3 g/dL Normal [facility] Comment on above: Performed By: #### P T #### [facility] [address] [place] [address] Dr. Curly Connell Glucose [Mass/Vol] 123 mg/dL Critically high 74-106 [facility] Comment on above: Performed By: #### P T #### [facility] [address] [address] [address] Curly Connell Potassium [Moles/Vol] 4.8 mmol/L Normal 3.5-5.1 [facility] Comment on above: Performed By: #### P T #### [facility] [address] [place] [address] Dr. Curly Connell Protein [Mass/Vol] 7.9 g/dL Normal 6.4-8.2 [facility] Comment on above: Performed By: #### P T #### [facility] [address] [address] [address] Curly Connell Sodium [Moles/Vol] 139 mmol/L Normal 136-145 [facility] Comment on above: Performed By: #### P T #### [facility] [address] [address] [address] Curly Connell Urea nitrogen [Mass/Vol] 25.0 mg/dL Critically high 7.0-18.0 [facility] Comment on above: Performed By: #### P T #### [facility] [address] [address] [address] Curly Connell Urea nitrogen/Creatinine [Mass ratio] 20.3 mg/mg Normal [facility] Comment on above: Performed By: #### P T #### [facility] [address] [place] [address] Dr. Curly Connell PROTIMEon 01-31-2023 INR Coag (PPP) [Relative time] 2.17 {INR} Normal [facility] Comment on above: Performed By: #### P T #### [facility] [address] [place] [address] Dr. Curly Connell INR GUIDELINES SEE BELOW Normal [facility] Comment on above: Result Comment: DAFNE RED INR: 2.0 - 3.0 CONDITIONS NOT LISTED BELOW 2.5 - 3.5 FOR PROSTHETIC HEART VALVE REPLACEMENT 2.5 - 3.5 RECURRENT THROMBOSIS Performed By: #### P T #### [facility] [address] [place] [address] Dr. Curly Connell PT Coag (PPP) [Time] 22.0 s Critically high 9.0-11.6 [facility] Comment on above: Performed By: #### P T #### [facility] [address] [place] [address] Dr. Curly Connell US KIDNEYSon 01-21-2023 US [...] HUMPHREYS Date: 2023-01-21 10:07 Normal [facility] XR KUB 1 VIEWon 01-21-2023 XR KUB [...] EFREM HUMPHREYS Date: 2023-01-21 10:37 Normal [facility] PROTIMEon 12-30-2022 INR Coag (PPP) [Relative time] 2.16 {INR} Normal [facility] Comment on above: Performed By: #### P T #### [facility] [address] [place], [place] [address] Dr. Curly Connell INR GUIDELINES SEE BELOW Normal [facility] Comment on above: Result Comment: DAFNE RED INR: 2.0 - 3.0 CONDITIONS NOT LISTED BELOW 2.5 - 3.5 FOR PROSTHETIC HEART VALVE REPLACEMENT 2.5 - 3.5 RECURRENT THROMBOSIS Performed By: #### P T #### [facility] [address] [address] [address] Curly Connell PT Coag (PPP) [Time] 21.9 s Critically high 9.0-11.6 [facility] Comment on above: Performed By: #### P T #### [facility] [address] [place] [address] Dr. Curly Connell PROTIMEon 10-14-2022 INR Coag (PPP) [Relative time] 2.36 {INR} Normal [facility] Comment on above: Performed By: #### P T #### [facility] [address] [place] [address] Dr. Curly Connell INR GUIDELINES SEE BELOW Normal [facility] Comment on above: Result Comment: DAFNE RED INR: 2.0 - 3.0 CONDITIONS NOT LISTED BELOW 2.5 - 3.5 FOR PROSTHETIC HEART VALVE REPLACEMENT 2.5 - 3.5 RECURRENT THROMBOSIS Performed By: #### P T #### [facility] [address] [place] [address] Dr. Curly Connell PT Coag (PPP) [Time] 23.8 s Critically high 9.0-11.6 [facility] Comment on above: Performed By: #### P T #### [facility] [address] [place] [address] Dr. Curly Connell PROTIMEon 09-16-2022 INR Coag (PPP) [Relative time] 1.93 {INR} Normal [facility] Comment on above: Performed By: #### P T #### [facility] [address] [place] [address] Dr. Curly Connell INR GUIDELINES SEE BELOW Normal [facility] Comment on above: Result Comment: DAFNE RED INR: 2.0 - 3.0 CONDITIONS NOT LISTED BELOW 2.5 - 3.5 FOR PROSTHETIC HEART VALVE REPLACEMENT 2.5 - 3.5 RECURRENT THROMBOSIS Performed By: #### P T #### [facility] [address] [place] [address] Dr. Curly Connell PT Coag (PPP) [Time] 20.0 s Critically high 9.0-11.6 [facility] Comment on above: Performed By: #### P T #### [facility] [address] [address] [address] Curly Connell PROTIMEon 08-07-2022 INR Coag (PPP) [Relative time] 2.68 {INR} Normal [facility] Comment on above: Performed By: #### P T #### [facility] [address] [place] [address] Dr. Curly Connell INR GUIDELINES SEE BELOW Normal [facility] Comment on above: Result Comment: DAFNE RED INR: 2.0 - 3.0 CONDITIONS NOT LISTED BELOW 2.5 - 3.5 FOR PROSTHETIC HEART VALVE REPLACEMENT 2.5 - 3.5 RECURRENT THROMBOSIS Performed By: #### P T #### [facility] [address] [place] [address] Dr. Curly Connell PT Coag (PPP) [Time] 27.1 s Critically high 9.0-11.6 [facility] Comment on above: Performed By: #### P T #### [facility] [address] [place] [address] ABD/PELVIS WO CONon [...] by: MASON NESBITT Date: 2022-07-17 19:16 Normal [facility] US KIDNEYSon 07-01-2022 US KIDNEYS Ultrasound kidneys, [...] by: HILL IRVING Date: 2022-07-01 09:02 Normal [facility] XR KUB 1 VIEWon 07-01-2022 XR KUB [...] EFREM HUMPHREYS Date: 2022-07-01 16:28 Normal [facility] PROTIMEon 06-25-2022 INR Coag (PPP) [Relative time] 2.60 {INR} Normal [facility] Comment on above: Performed By: #### P T #### [facility] [address] [place] [address] Dr. Curly Connell INR GUIDELINES SEE BELOW Normal [facility] Comment on above: Result Comment: DAFNE RED INR: 2.0 - 3.0 CONDITIONS NOT LISTED BELOW 2.5 - 3.5 FOR PROSTHETIC HEART VALVE REPLACEMENT 2.5 - 3.5 RECURRENT THROMBOSIS Performed By: #### P T #### [facility] [address] [place] [address] Dr. Curly Connell PT Coag (PPP) [Time] 26.4 s Critically high 9.0-11.6 [facility] Comment on above: Performed By: #### P T #### [facility] [address] [place] [address] Dr. Curly Connell PROTIMEon 06-05-2022 INR Coag (PPP) [Relative time] 3.62 {INR} Normal [facility] Comment on above: Performed By: #### P T #### [facility] [address] [place] [address] Dr. Curly Connell INR GUIDELINES SEE BELOW Normal [facility] Comment on above: Result Comment: DAFNE RED INR: 2.0 - 3.0 CONDITIONS NOT LISTED BELOW 2.5 - 3.5 FOR PROSTHETIC HEART VALVE REPLACEMENT 2.5 - 3.5 RECURRENT THROMBOSIS Performed By: #### P T #### [facility] [address] [place] [address] Dr. Curly Connell PT Coag (PPP) [Time] 35.9 s Critically high 9.0-11.6 [facility] Comment on above: Performed By: #### P T #### [facility] [address] [place] [address] Dr. Curly Connell PROTIMEon 05-24-2022 INR Coag (PPP) [Relative time] 2.56 {INR} Normal [facility] Comment on above: Performed By: #### P T #### [facility] [address] [place] [address] Dr. Curly Connell INR GUIDELINES SEE BELOW Normal [facility] Comment on above: Result Comment: DAFNE RED INR: 2.0 - 3.0 CONDITIONS NOT LISTED BELOW 2.5 - 3.5 FOR PROSTHETIC HEART VALVE REPLACEMENT 2.5 - 3.5 RECURRENT THROMBOSIS Performed By: #### P T #### [facility] [address] [place] [address] Dr. Curly Connell PT Coag (PPP) [Time] 26.0 s Critically high 9.0-11.6 [facility] Comment on above: Performed By: #### P T #### [facility] [address] [place] [address] Dr. Curly Connell PROTIMEjulia 05-15-2022 INR Coag (PPP) [Relative time] 4.22 {INR} Critically high [facility] Comment on above: Performed By: #### P T #### [facility] [address] [place] [address] Dr. Curly Connell INR GUIDELINES SEE BELOW Normal [facility] Comment on above: Result Comment: DAFNE RED INR: 2.0 - 3.0 CONDITIONS NOT LISTED BELOW 2.5 - 3.5 FOR PROSTHETIC HEART VALVE REPLACEMENT 2.5 - 3.5 RECURRENT THROMBOSIS Performed By: #### P T #### [facility] [address] [place] [address] Dr. Curly Connell PT Coag (PPP) [Time] 41.5 s Critically high 9.0-11.6 [facility] Comment on above: Performed By: #### P T #### [facility] [address] [place] [address] Dr. Curly Connell PROTIMEon 05-01-2022 INR Coag (PPP) [Relative time] 3.81 {INR} Normal [facility] Comment on above: Performed By: #### P T #### [facility] [address] [place] [address] Dr. Curly Connell INR GUIDELINES SEE BELOW Normal [facility] Comment on above: Result Comment: DAFNE RED INR: 2.0 - 3.0 CONDITIONS NOT LISTED BELOW 2.5 - 3.5 FOR PROSTHETIC HEART VALVE REPLACEMENT 2.5 - 3.5 RECURRENT THROMBOSIS Performed By: #### P T #### [facility] [address] [address] [address] Curly Connell PT Coag (PPP) [Time] 37.7 s Critically high 9.0-11.6 [facility] Comment on above: Performed By: #### P T #### [facility] [address] [place] [address] Dr. Curly Connell PROTIMEon 04-10-2022 INR Coag (PPP) [Relative time] 2.90 {INR} Normal [facility] Comment on above: Performed By: #### P T #### [facility] [address] [place] [address] Dr. Curly Connell INR GUIDELINES SEE BELOW Normal [facility] Comment on above: Result Comment: DAFNE RED INR: 2.0 - 3.0 CONDITIONS NOT LISTED BELOW 2.5 - 3.5 FOR PROSTHETIC HEART VALVE REPLACEMENT 2.5 - 3.5 RECURRENT THROMBOSIS Performed By: #### P T #### [facility] [address] [place] [address] Dr. Curly Connell PT Coag (PPP) [Time] 29.2 s Critically high 9.0-11.6 [facility] Comment on above: Performed By: #### P T #### [facility] [address] [place] [address] Dr. Curly Connell PROTIMEon 03-28-2022 INR Coag (PPP) [Relative time] 2.52 {INR} Normal [facility] Comment on above: Performed By: #### P T #### [facility] [address] [place] [address] Dr. Curly Connell INR GUIDELINES SEE BELOW Normal [facility] Comment on above: Result Comment: DAFNE RED INR: 2.0 - 3.0 CONDITIONS NOT LISTED BELOW 2.5 - 3.5 FOR PROSTHETIC HEART VALVE REPLACEMENT 2.5 - 3.5 RECURRENT THROMBOSIS Performed By: #### P T #### [facility] [address] [place], [place] [address] Dr. Curly Connell PT Coag (PPP) [Time] 25.6 s Critically high 9.0-11.6 [facility] Comment on above: Performed By: #### P T #### [facility] [address] [place], [place] [address] Dr. Curly Connell PROTIMEon 03-25-2022 INR Coag (PPP) [Relative time] 1.81 {INR} Normal [facility] Comment on above: Performed By: #### P T #### [facility] [address] [address] [address] Curly Connell INR GUIDELINES SEE BELOW Normal [facility] Comment on above: Result Comment: DAFNE RED INR: 2.0 - 3.0 CONDITIONS NOT LISTED BELOW 2.5 - 3.5 FOR PROSTHETIC HEART VALVE REPLACEMENT 2.5 - 3.5 RECURRENT THROMBOSIS Performed By: #### P T #### [facility] [address] [place], [place] [address] Dr. Curly Connell PT Coag (PPP) [Time] 18.8 s Critically high 9.0-11.6 [facility] Comment on above: Performed By: #### P T #### [facility] [id number] Curly Connell Cardiovascular Lab Reporton 03-21-2022 Cardiovascular Lab Report [facility] Patient Name: Janelle [facility] MR #: [id number] Department of Physician: Brian Byrne M.D. Division of Service Date: 03/20/2022 Cardiology Birthdate: 1965 Adult Cardiovascular Room #: [place] [address] Cardiovascular Laboratory Report FINAL IMPRESSIONS: 1. Moderate [...] pain, namely gastrointestinal. 4. Follow up with [facility] Cardiology in the next 1 to [...] the right radial artery was obtained. A 6-[place] glide sheath was inserted without difficulty. Bilateral [...] Cormier M.D. Date Trans: 03/21/2022 12:17 A/bouchra [id number] cc: Shania Bhat, MSN, OUTSIDE [employer] Department Of Surgery [place] [address] [facility] [address] Noe Caballero M.D. [address], [facility] [address] Normal [facility] CBC AUTO DIFFon 03-18-2022 BASO # 0.1 103/ul Normal 0.0-0.1 [facility] Comment on above: Performed By: #### C BC #### [facility] [address] [place] [address] Dr. Curly Connell Basophils/100 WBC (Bld) 0.8 % Normal 0.2-2.0 [facility] Comment on above: Performed By: #### C BC #### [facility] [address] [place] [address] Dr. Curly Connell EO # 0.1 103/ul Normal 0.0-0.7 [facility] Comment on above: Performed By: #### C BC #### [facility] [address] [address] [address] Curly Connell Eosinophils/100 WBC (Bld) 1.1 % Normal 0.9-7.0 [facility] Comment on above: Performed By: #### C BC #### [facility] [address] [address] [address] Curly Connell Erythrocyte distribution width (RBC) [Ratio] 20.7 % Critically high 11.0-15.0 [facility] Comment on above: Performed By: #### C BC #### [facility] [address] [place] [address] Dr. Curly Connell Hematocrit (Bld) [Volume fraction] 45.3 % Normal 42.0-54.0 [facility] Comment on above: Performed By: #### C BC #### [facility] [address] [place] [address] Dr. Curly Connell Hemoglobin (Bld) [Mass/Vol] 13.5 g/dL Critically low 14.0-18.0 [facility] Comment on above: Performed By: #### C BC #### [facility] [address] [place] [address] Dr. Curly Connell IG # 0.02 10e3/ul Normal 0.00-0.03 [facility] Comment on above: Performed By: #### C BC #### [facility] [address] [place] [address] Dr. Curly Connell IG % 0.2 % Normal 0.0-0.5 [facility] Comment on above: Performed By: #### C BC #### [facility] [address] [place] [address] Dr. Curly Connell LYMPH # 1.9 103/ul Normal 1.2-3.8 [facility] Comment on above: Performed By: #### C BC #### [facility] [address] [place] [address] Dr. Curly Connell Lymphocytes/100 WBC (Bld) 23.4 % Normal 20.5-60.0 [facility] Comment on above: Performed By: #### C BC #### [facility] [address] [place] [address] Dr. Curly Connell MANUAL DIFF REQ NO Normal [facility] Comment on above: Performed By: #### C BC #### [facility] [address] [place] [address] Dr. Curly Connell MCH (RBC) [Entitic mass] 23.0 pg Critically low 25.9-34.0 [facility] Comment on above: Performed By: #### C BC #### [facility] [address] [place] [address] Dr. Curly Connell MCHC (RBC) [Mass/Vol] 29.8 g/dL Critically low 29.9-35.2 [facility] Comment on above: Performed By: #### C BC #### [facility] [address] [place] [address] Dr. Curly Connell MCV (RBC) [Entitic vol] 77.2 fL Critically low 80.0-94.0 [facility] Comment on above: Performed By: #### C BC #### [facility] [address] [place] [address] Dr. Curly Connell MONO # 0.6 103/ul Normal 0.3-0.8 [facility] Comment on above: Performed By: #### C BC #### [facility] [address] [place] [address] Dr. Curly Connell Monocytes/100 WBC (Bld) 7.7 % Normal 1.7-12.0 [facility] Comment on above: Performed By: #### C BC #### [facility] [address] [place] [address] Dr. Curly Connell NEUT # 5.5 103/ul Normal 1.4-6.5 [facility] Comment on above: Performed By: #### C BC #### [facility] [facility] [address] [place] [address] Dr. Curly Connell Neutrophils/100 WBC (Bld) 66.8 % Normal 43.0-75.0 [facility] Comment on above: Performed By: #### C BC #### [facility] [address] [place] [address] Dr. Curly Connell Platelet mean volume (Bld) [Entitic vol] 9.8 fL Normal 9.5-13.5 [facility] Comment on above: Performed By: #### C BC #### [facility] [address] [place] [address] Dr. Curly Connell PLT 337 103/ul Normal 150-450 [facility] Comment on above: Performed By: #### C BC #### [facility] [address] [place] [address] Dr. Curly Connell RBC 5.87 106/ul Normal 4.70-6.10 [facility] Comment on above: Performed By: #### C BC #### [facility] [address] [place] [address] Dr. Curly Connell WBC 8.3 103/ul Normal 4.0-11.0 [facility] Comment on above: Performed By: #### C BC #### [facility] [address] [place] [address] Dr. Curly Connell Covid-19 PCR (CVDTB)on 02-28 SARS-CoV-2 (COVID-19) RNA MARCELLO+probe Ql (Unsp spec) Not detected Normal NOT DETECTED [facility] Comment on above: Result Comment: This test is not yet approved or cleared by the [place] FDA. When there are no FDA-approved or cleared tests available, and other criteria are met, FDA can make tests available under an emergency access mechanism called an Emergency Use Authorization (EUA). The EUA for this test is supported by the [place] of Health and Human Service's (HHS's) declaration [...] SARS-CoV-2. Performed By: #### C VDTBH #### [facility] [address] [place] [address] Dr. Curly Connell PROF CHEM 8 (BAS METB)on Anion gap [Moles/Vol] 12.9 mmol/L Normal Th [facility] Comment on above: Performed By: #### P T #### [facility] [address] [address] [address] Curly Connell Calcium [Mass/Vol] 9.1 mg/dL Normal 8.5-10.1 [facility] Comment on above: Performed By: #### P T #### [facility] [address] [address] [address] Curly Connell Chloride [Moles/Vol] 105 mmol/L Normal 98-107 [facility] Comment on above: Performed By: #### P T #### [facility] [address] [address] [address] Curly Connell CO2 [Moles/Vol] 26.0 mmol/L Normal 21.0-32.0 [facility] Comment on above: Performed By: #### P T #### [facility] [address] [address] [address] Curly Connell Creatinine [Mass/Vol] 1.34 mg/dL Critically high 0.70-1.30 [facility] Comment on above: Performed By: #### P T #### [facility] [address] [address] [address] Curly Connell EGFR-AF CITIZEN OF [place] >60 Normal >=60 [facility] Comment on above: Performed By: #### P T #### [facility] [address] [address] [address] Curly Connell EGFR-NON AF CITIZEN OF [place] 55 mL/min/1.73m2 Critically low >=60 [facility] Comment on above: Performed By: #### P T #### [facility] [address] [address] [address] Curly Connell Glucose [Mass/Vol] 122 mg/dL Critically high 74-106 [facility] Comment on above: Performed By: #### P T #### [facility] [address] [address] [address] Curly Connell Potassium [Moles/Vol] 4.9 mmol/L Normal 3.5-5.1 [facility] Comment on above: Performed By: #### P T #### [facility] [address] [address] [address] Curly Connell Sodium [Moles/Vol] 139 mmol/L Normal 136-145 [facility] Comment on above: Performed By: #### P T #### [facility] [address] [address] [address] Curly Connell Urea nitrogen [Mass/Vol] 26.0 mg/dL Critically high 7.0-18.0 [facility] Comment on above: Performed By: #### P T #### [facility] [address] [place] [address] Dr. Curly Connell Urea nitrogen/Creatinine [Mass ratio] 19.4 mg/mg Normal [facility] Comment on above: Performed By: #### P T #### [facility] [address] [place] [address] Dr. Curly Connell PROTIMEon 03-12-2022 INR Coag (PPP) [Relative time] 2.73 {INR} Normal [facility] Comment on above: Performed By: #### P T #### [facility] [address] [place] [address] Dr. Curly Connell INR GUIDELINES SEE BELOW Normal [facility] Comment on above: Result Comment: DAFNE RED INR: 2.0 - 3.0 CONDITIONS NOT LISTED BELOW 2.5 - 3.5 FOR PROSTHETIC HEART VALVE REPLACEMENT 2.5 - 3.5 RECURRENT THROMBOSIS Performed By: #### P T #### [facility] [address] [place] [address] Dr. Curly Connell PT Coag (PPP) [Time] 27.6 s Critically high 9.0-11.6 [facility] Comment on above: Performed By: #### P T #### [facility] [address] [place] [address] Dr. Curly Connell NM STRESS/REST MULTIon 03-07 NM STRESS/REST MULTI Patient: DORIS LUIS Exam Date: 03/07/2022 : 1965 Gender:M Ordering : DR NOE CABALLERO . Admission #: [id number] Family : Order #: [id number] CLICK HERE TO VIEW EXAM RADIOLOGY REPORT [...] MD on 03/08/2022 at 11:55 Normal [facility] ECHOCARDIO M/2D COMPLETEon 0 02-20-2022 ECHOCARDIO M/2D COMPLETE Patient: DORIS LUIS Exam Date: 02/20/2022 : 1965 Gender:M Ordering : DR NOE CABALLERO . Admission #: [id number] Family : Order #: [id number] CLICK HERE TO VIEW EXAM ECHOCARDIOGRAM REPORT [...] Pepe M.D. on 02/21/2022 at 12:46 Normal [facility] PROTIMEon 02-13-2022 INR Coag (PPP) [Relative time] 2.92 {INR} Normal [facility] Comment on above: Performed By: #### P T #### [facility] [address] [place] [address] Dr. Curly Connell INR GUIDELINES SEE BELOW Normal [facility] Comment on above: Result Comment: DAFNE RED INR: 2.0 - 3.0 CONDITIONS NOT LISTED BELOW 2.5 - 3.5 FOR PROSTHETIC HEART VALVE REPLACEMENT 2.5 - 3.5 RECURRENT THROMBOSIS Performed By: #### P T #### [facility] [address] [address] [address] Curly Connell PT Coag (PPP) [Time] 29.4 s Critically high 9.0-11.6 [facility] Comment on above: Performed By: #### P T #### [facility] [id number] Curly Connell CHEMISTRYOrdered By: Lab ROP User on 01-17-2022 Glucose [Mass/Vol] 121 mg/dL High 55 - 99 mg/dL [facility] POC Subsection Comment on above: Result Comment: Asael thompson RN/ POC Device SN [id number] Invalid Interpretation Code [facility] POC Subsection POC User ID [id number] Invalid Interpretation Code [facility] POC Subsection POC Username SHANIKA ORTIZ Invalid Interpretation Code [facility] POC Subsection COAGULATIONOrdered By: Efrem Moscoso on 01-17-2022 aPTT Coag (PPP) [Time] 36.2 s Normal 25.1 - 36.5 second(s) [facility] Auto Coag INR Coag (PPP) [Relative time] 1.1 {INR} Invalid Interpretation Code [facility] Auto Coag PT Coag (PPP) [Time] 13.4 s High 10.2 - 12.9 second(s) [facility] Auto Coag CHEMISTRYOrdered By: Efrem soria on 01-11-2022 Anion gap [Moles/Vol] 12 mmol/L Normal 6 - 16 mEq/L [facility] Remisol Calcium [Mass/Vol] 9.1 mg/dL Normal 8.9 [...] 4.3 mmol/L Normal 3.5 - 5.3 mmol/L [facility] Remisol Sodium [Moles/Vol] 138 mmol/L Normal 135 - 145 mmol/L [facility] Remisol Urea nitrogen [Mass/Vol] 17 mg/dL Normal 5 - 21 mg/dL [facility] Remisol Urea nitrogen/Creatinine [Mass ratio] 17 mg/mg Normal 10 - 20 [facility] Remisol CHEMISTRYOrdered By: SYSTEM SYSTEM on 01-11-2022 GFR/1.73 sq M.predicted among blacks MDRD (S/P/Bld) [Vol rate/Area] mL/min/1.73 m2 Normal >=59mL/min/1 .73 m2 [facility] Chem S GFR/1.73 sq M.predicted among non-blacks MDRD (S/P/Bld) [Vol rate/Area] mL/min/1.73 m2 Normal >=59mL/min/1 .73 m2 [facility] Chem S COAGULATIONOrdered By: Jomar Cheema on 01-11-2022 aPTT Coag (PPP) [Time] 43.3 s High 25.1 - 36.5 second(s) [facility] Auto Coag INR Coag (PPP) [Relative time] 3.0 {INR} Invalid Interpretation Code [facility] Auto Coag PT Coag (PPP) [Time] 35.7 s High 10.2 - 12.9 second(s) [facility] Auto Coag HEMATOLOGYOrdered By: [...] 4.1 E9/L Normal 2.0 - 7.5 E9/L [facility] HEMATOLOGYOrdered By: Catalina Savage on 01-11-2022 Erythrocyte distribution width (RBC) [Ratio] 17.7 % High 10.9 - 14.2 % [facility] HemeAutoSS Hematocrit (Bld) [Volume fraction] 39.8 % Normal 37.7 - 49.0 % [facility] HemeAutoSS Hemoglobin (Bld) [Mass/Vol] 12.9 g/dL Low 13.5 - 17.5 gm/dL [facility] Hypochromia Auto Ql (Bld) Present (01/11/22 1:18 PM) Normal [facility] MCH (RBC) [Entitic mass] 24.5 pg Low 27.0 - 34.0 pg [facility] HemeAutoSS MCHC (RBC) [Mass/Vol] 32.4 g/dL Normal 31.4 - 36.0 gm/dL [facility] HemeAutoSS MCV (RBC) [Entitic vol] 75.5 fL Low 80.0 - 100.0 fL [facility] Morphology Lazaro (Bld) [Interp] See Morphology [...] 6.2 E9/L Normal 4.0 - 11.0 E9/L [facility] URINALYSISOrdered By: Jomar ball on 01-11-2022 [...] PM) Normal Negative [facility] UA Auto SS [place].plasma/[place] .RBC (Bld) [Mass ratio] 0-3 /HPF Normal [...] [facility] UA Auto SS Urobilinogen Qn (U) [id number] {Rashida'U}/dL Normal 0.0 - 1.0 EU/dL [facility] UA Auto SS WBC Auto Ql (U) Negative (01/11/22 1:18 PM) Normal Negative [facility] UA Auto SS WBC LM.HPF (Urine sed) [#/Area] 0-5 /HPF Normal 0-5/HPF [facility] UA Auto SS OPERATIVE REPORTon 9 OPERATIVE REPORT [address] [id number] OPERATIVE REPORT PATIENT NAME: DORIS LUIS : 1965 MED REC NO: [id number] ROOM: [facility] ACCOUNT NO: [id number] ADMIT DATE: 01/18/2019 PROVIDER: Efrem Matson DATE [...] little over 2 months. He has tried nurse healthcare manager without benefit and imaging demonstrates the presence [...] small incision in the fascia, and the Hivelocity tube dilator system was used to dilate [...] evidence of complication. EFREM MATSON [id number] Doc#: [id number] CC: Normal [facility] APTTon 01-18-2019 aPTT Coag time (Bld) 19.5 s Low 20.5-30.5 [facility] Comment on above: Result Comment: No c lot found in specimen, results questionable. TEST CONFIRMED Performed By: #### P T, PTT #### [facility] [address] [place] [id number] Head Host/Hostess: Panchito Nguyen MD PTon 01-18-2019 INR Coag RelTime (PPP) 0.9 {INR} Normal [facility] Comment on above: Result Comment: Therapeutic Range: Moderate Anticoagulant Intensity: INR = 2.0-3.0 High Anticoagulant Intensity: INR = 2.5-3.5 No clot found in specimen, results questionable. Performed By: #### P T, PTT #### [facility] [address] [place] [address] [id number] Head Host/Hostess: Panchito Nguyen MD Prothrombin time (PT) Coag time (PPP) 9.5 s Normal 9.0-12.0 [facility] Comment on above: Result Comment: No c lot found in specimen, results questionable. Performed By: #### P T, PTT #### [id number] [place], [place] [id number] Head Host/Hostess: Panchito Nguyen MD Type + Screenon 01-18-2019 Type + Screen Sample Expiration 01/21/2019 Arm Band Number [id number] ABO/Rh(D) A POSITIVE Antibody Screen NEGATIVE Normal [facility] Comment on above: Performed By: #### T YS #### [address] [id number] Head Host/Hostess: Panchito Nguyen MD XR LUMBAR SPINE (2-3 [...] Anup Guerrero MD 01/18/19 Final result Normal [facility] Vital Signs Date Time Vital Sign Value Performing Clinician Facility 12-30-2023 11:17-0400 Blood Pressure Location [employer] [facility] 12-30-2023 11:17-040 Body temperature 98.42 [degF] [employer] [facility] 12-30-2023 11:17-0400 Diastolic blood pressure 88 mm[Hg] Elsy Orzech [facility] 12-30-2023 11:17-0400 Heart rate 83 /min Elsy Orzech [facility] 12-30-2023 11:17-0400 Respiratory rate 16 /min Elsy Orzech [facility] 12-30-2023 11:17-0400 Systolic blood pressure 122 mm[Hg] Elsy Orzech [facility] 08-29-2023 13:46-0500 Blood Pressure Location Jamil NILL [facility] 08-29-2023 13:46-0500 Diastolic blood pressure 78 mm[Hg] Jamil NILL [facility] [place] 08-29-2023 13:46-0500 Heart rate 72 /min Jamil NILL [facility] [place] 08-29-2023 13:46-0500 Respiratory rate 16 /min Jamil NILL [facility] [place] 08-29-2023 13:46-0500 Systolic blood pressure 126 mm[Hg] Jamil NILL [facility] [place] 03-12-2023 14:22-0400 Blood Pressure Location Jamil NILL [facility] [place] 03-12-2023 14:22-0400 Diastolic blood pressure 78 mm[Hg] Jamil NILL [facility] [place] 03-12-2023 14:22-0400 Heart rate 72 /min Jamli NILL [facility] [place] 03-12-2023 14:22-0400 Respiratory rate 16 /min Jamil NILL [facility] [place] 03-12-2023 14:22-0400 Systolic blood pressure 126 mm[Hg] Jamil DE LUNA [facility] [place] 07-03-2022 13:18-0400 Blood Pressure Location EDGAR DANIELLE [facility] 07-03-2022 13:18-0400 Diastolic blood pressure 76 mm[Hg] EDGAR DANIELLE [facility] 07-03-2022 13:18-0400 Heart rate 62 /min EDGAR DANIELLE [facility] 07-03-2022 13:18-0400 Systolic blood pressure 128 mm[Hg] EDGAR DANIELLE [facility] 01-17-2022 12:56-0400 Blood Pressure Location David Pacheco Jr. [facility] 01-17-2022 12:56-0400 BP/Pulse Patient Position David Pacheco Jr. [facility] 01-17-2022 12:56-0400 Diastolic blood pressure 79 mm[Hg] David Pacheco Jr. [facility] 01-17-2022 12:56-0400 Heart rate 50 /min David Pacheco Jr. [facility] 01-17-2022 12:56-0400 Mean blood pressure 94 mm[Hg] David Pacheco Jr. [facility] 01-17-2022 12:56-0400 SaO2% (BldA) [Mass fraction] 96 % David Pacheco Jr[facility] 01-17-2022 12:56-0400 Systolic blood pressure 125 mm[Hg] David Pacheco Jr. [facility] 01-17-2022 12:56-0400 Body temperature 97.52 [degF] David Pacheco Jr[facility] 01-17-2022 12:01-0400 Blood Pressure Location David Pacheco Jr. [facility] 01-17-2022 12:01-0400 BP/Pulse Patient Position David Pacheco Jr. [facility] 01-17-2022 12:01-0400 Diastolic blood pressure 83 mm[Hg] David Pacheco Jr. [facility] 01-17-2022 12:01-0400 Heart rate 49 /min David Pacheco Jr. [facility] 01-17-2022 12:01-0400 Mean blood pressure 98 mm[Hg] David Pacheco Jr[facility] 01-17-2022 12:01-0400 Respiratory rate 16 /min David Pacheco Jr[facility] 01-17-2022 12:01-0400 SaO2% (BldA) [Mass fraction] 94 % David Pacheco Jr[facility] 01-17-2022 12:01-0400 Systolic blood pressure 129 mm[Hg] David Pacheco Jr[facility] 01-17-2022 12:01-0400 Body temperature 97.34 [degF] David Pacheco Jr[facility] 01-17-2022 11:55-0400 Blood Pressure Location David Pacheco Jr. [facility] 01-17-2022 11:55-0400 Body temperature 97.34 [degF] David Pacheco Jr[facility] 01-17-2022 11:55-0400 Diastolic blood pressure 81 mm[Hg] David Pacheco Jr[facility] 01-17-2022 11:55-0400 Heart rate 50 /min David Pacheco Jr. [facility] 01-17-2022 11:55-0400 Respiratory rate 12 /min David Pacheco Jr[facility] 01-17-2022 11:55-0400 SaO2% (BldA) [Mass fraction] 97 % David Pacheco Jr[facility] 01-17-2022 11:55-0400 Systolic blood pressure 126 mm[Hg] David Pacheco Jr[facility] 01-17-2022 11:40-0400 Respiratory rate 16 /min David Pacheco Jr[facility] 01-17-2022 11:25-0400 Respiratory rate 18 /min David Pacheco Jr[facility] 01-17-2022 11:00-0400 Respiratory rate 25 /min David Pacheco Jr[facility] 01-17-2022 10:55-0400 Respiratory rate 26 /min David Pacheco Jr[facility] 01-17-2022 08:12-0400 gluc 121 mg/dL David Pacheco Jr[facility] 01-17-2022 07:52-0400 Body temperature 97.7 [degF] David [facility]acheco Jr[facility] 01-17-2022 07:52-0400 BP/Pulse Patient Position David Pacheco Jr[facility] 01-17-2022 07:52-0400 Mean blood pressure 95 mm[Hg] David Pacheco Jr[facility] 01-17-2022 07:52-0400 Heart rate 48 /min David Pacheco Jr[facility] 01-11-2022 12:42-0400 Diastolic blood pressure 81 mm[Hg] David Pacheco Jr[facility] 01-11-2022 12:42-0400 Heart rate 44 /min David Pacheco Jr[facility] 01-11-2022 12:42-0400 Mean blood pressure 97 mm[Hg] David Pacheco Jr[facility] 01-11-2022 12:42-0400 Respiratory rate 16 /min David Pacheco Jr[facility] 01-11-2022 12:42-0400 SaO2% (BldA) [Mass fraction] 98 % David Pacheco Jr[facility] 01-11-2022 12:42-0400 Systolic blood pressure 131 mm[Hg] David Pacheco Jr[facility] 01-11-2022 12:42-0400 Blood Pressure Location David Pacheco Jr[facility] 01-11-2022 12:42-0400 Body temperature 97.7 [degF] David Pacheco Jr[facility] 01-11-2022 12:40-0400 Blood Pressure Location David Pacheco Jr[facility] 01-11-2022 12:40-0400 Diastolic blood pressure 90 mm[Hg] David Pacheco Jr[facility] 01-11-2022 12:40-0400 Heart rate 46 /min David Pacheco Jr[facility] 01-11-2022 12:40-0400 Mean blood pressure 108 mm[Hg] David Pacheco Jr[facility] 01-11-2022 12:40-0400 Respiratory rate 16 /min David Pacheco Jr[facility] 01-11-2022 12:40-0400 SaO2% (BldA) [Mass fraction] 98 % David Pacheco Jr[facility] 01-11-2022 12:40-0400 Systolic blood pressure 144 mm[Hg] David Pacheco Jr. [facility] Encounters Encounter Date Encounter Type Care Provider Facility Start: 11-05-2024 Evaluation and management of inpatient [facility] Start: 11-05-2024 Evaluation and management of inpatient DIANDRA [facility] Start: 11-04-2024 [facility]: 11-03-[facility]24 End: 11-05-2024 Evaluation and management of inpatient AZALEA GARZA [facility] Start: 11-03-2024 ambulatory [facility] Start: 08-03-2024 End: 08-03-2024 ambulatory JASVIR [facility] Start: 02-10-2024 End: 02-11-2024 ambulatory Elsy X Orzech Facility:[facility] Start: 02-10-2024 End: 02-10-2024 Patient encounter procedure Elsy X Orzech [facility] Start: 12-30-2023 End: 12-31-2023 ambulatory Elsy X Orzech Facility:[facility] Start: 12-30-2023 End: 12-31-2023 ambulatory Elsy X Orzech Facility:[facility] Start: 12-30-2023 End: 12-30-2023 Lab Drop off Elsy X Orzech [facility] Start: 12-30-2023 End: 12-30-2023 Patient encounter procedure Elsy England [facility] Start: 09-17-2023 End: 09-18-2023 ambulatory Jamil R NILL Facility:[id number] Start: 09-14-2023 Chart abstracting Generic Exte rnal Data Provider GENERIC EXTERNAL DATA DEPARTMENT Start: 08-29-2023 End: 08-30-2023 ambulatory Jamil R NILL Facility: [facility] Start: 08-29-2023 End: 08-29-2023 Patient encounter procedure Jamil R NILL [facility]ill[facility] Start: 03-12-2023 End: 03-13-2023 ambulatory Jamil R NILL Facility: [facility] Start: 03-12-2023 End: 03-12-2023 Patient encounter procedure Jamil R NILL [facility] Start: 02-26-2023 End: 02-26-2023 ambulatory ALFIE RAZA Facility:[facility] Start: 02-19-2023 ambulatory Noe Caballero Facility:[facility] Start: 02-18-2023 End: 02-19-2023 ambulatory PA-C EDGAR DANIELLE Facility:[facility] Start: 02-18-2023 End: 02-19-2023 ambulatory ALEJANDRO DANIELLE Facility:[facility] Start: 02-04-2023 End: 02-05-2023 ambulatory SHANIA BHAT Facility: Start: 01-31-2023 End: 02-01-[address] NOE CABALLERO . Facility:[facility] Start: 01-21-2023 End: 01-22-2023 [...] encounter procedure EDGAR DANIELLE [facility] Start: 07-01-2022 End: 07-02-2022 ambulatory EDGAR DANIELLE Facility:[facility] Start: 06-29-[address] NOE CABALLERO . Facili ty:[facility] Start: 06-05-2022 End: 06-29-[address] NOE CABALLERO . Facility:[facility] Start: 05-24-[address] NEO CABALLERO . Facili ty:[facility] Start: 05-01-2022 End: 05-29-[address] NOE CABALLERO . Facility:[facility] Start: 04-10-2022 End: 04-26-[address] NOE CABALLERO . Facility:[facility] Start: 03-25-2022 End: 03-29-[address] NOE CABALLERO . Facility:[facility] Start: 03-20-2022 End: 03-21-2022 ambulatory DAGOBERTO CORMIER Facility:[facility] Start: 03-18-2022 End: 03-19-2022 ambulatory SHANIA BHAT Facility:[facility] Start: 03-07-2022 End: 03-29-[address] NOE CABALLERO . Facility:[facility] Start: 03-07-2022 End: 03-08-[address] NOE CABALLERO . Facility:[facility] Start: 02-20-2022 End: 02-21-[address] NOE CABALLERO . Facility: Start: 01-17-2022 End: 01-17-2022 Admission to same day surgery center David Terrence Pacheco Jr. [facility] Start: 01-11-2022 End: 01-11-2022 Patient encounter procedure David Darling Junior Mccollum [facility] Start: 12-25-2021 End: 12-25-2021 Patient encounter procedure David Terrence Pacheco Jr. [facility] Start: 01-18-2019 End: 01-19-2019 Patient encounter procedure EFREM Garza MANUELA [facility] Procedures Date Procedure Procedure Detail Performing Clinician Start: 12-13-2023 Echography of kidney Au mariza [place] Start: 07-03-[address] SONIDO CABALLERO . Comment on above: Performed By: #### P T #### [facility] [address] [place] [address] Dr. Curly Connell Start: 01-17-2022 Fluoroscopy guided [...] Cystoscopic insertio n of ureteric stent David Junior Mccollum Comment on above: cysto, L stone extra [...] pyelography David Pacheco Jr. Start: 09-29-2009 Hemorrhoidectomy Alida DE LUNA Cardiac catheterization Nicanor aeterrence DE LUNA Excision of lipoma Jamil ELIZABETH Extraction of cataract Heladio DE LUNA Angela filter, d evice (physical object) David Pacheco Jr. [place] filter, d evice (physical object) David Pacheco Jr. Hemorrhoidectomy David lyons Jr. History of operative procedure on knee David Pacheco Jr. History of operative procedure on lumbar spinal structure Jamil PLAZATerrence Removal of thrombus Jamil PLAZATerrence Repair of meniscus Jamil ELIZABETH Special back care David valdez Jr. Tonsillectomy David bradley Plan of Treatment Date Care Activity Detail Author Start: 10-30-2024 Diabetes Screening Diabetes Screenin g [facility] Start: 05-30-2023 Influenza vaccination Influenza Vacc ine (#1) [facility] Start: 2023 RSV Vaccine (1 - 1-d ose 60+ series) RSV Vaccine (1 - 1-dose 60+ series) [facility] Start: 09-29-2022 Depression Assessment Depression Ass essment [facility] Start: 2018 Prostate specific an tigen measurement Prostate Cancer Screening Discussion [facility] Start: 2013 Shingrix Vaccine (1 of 2) Adair grix Vaccine (1 of 2) [facility] Start: 2008 Screening for malign ant neoplasm of colon [facility] Start: 1998 Lipid panel Lipid Screening [facility] Start: 1982 Urine microalbumin profile DTa P,Tdap,Td Vaccine (1 - Tdap) [facility] Start: 1981 Hepatitis C screening Hepatitis C [facility] [place] [facility] [facility] Start: 1981 HIV screening HIV Screening [facility] Start: 1963 Covid-19 Vaccine (#1) Covid-19 Vacci ne (#1) [facility] Immunizations Immunization Date Immunization Notes Care Provider Renzo gavi 02-26-2023 tetanus toxoid, reduced diphtheria toxoid, and acellular pertussis vaccine, adsorbed Elsy England [facility] 08-27-2017 influenza, unspecifi ed formulation EDGAR ELIJAH [facility] 08-27-2017 influenza virus vaccine, unspecified formulation Generic Provider [facility] 06-26-2016 influenza, unspecifi ed formulation EDGAR ELIJAH [facility] NEGATED: Highlighted row has not occurred!08-29-2023 influenza virus vaccine, unspecified formulation Jamil DE LUNA [facility] [place] Payers Date Payer Category Payer Medicare MEDICARE MEDICAR E A AND B [id number] 2017-Present [phone] [address] [address] [place] [address] Medicare [id number] 1963 Unknown [id number] 2..840.1.523735.3.579.2.175 1963 Unknown [id number] 2.16.840.1.242756.3.579.2.647 1963 Unknown [id number] 2.16.840.1.953150.3.579.2.593 1963 Unknown [id number] 2.16.840.1.768797.3.579.2.593 1963 Unknown [id number] 2.16.840.1.334293.3.579.2.593 1963 Unknown [id number] 2.16.840.1.020631.3.579.2.593 1963 Unknown [id number] 2.16.840.1.043564.3.579.2.593 1963 Unknown [id number] 2.16.840.1.837478.3.579.2.593 1963 Unknown [id number] 2.16.840.1.063177.3.579.2.593 1963 Unknown [id number] 2.16.840.1.974144.3.579.2.593 1963 Unknown [id number] 2.16.840.1.509887.3.579.2.593 1963 Unknown [id number] 2.16.840.1.279116.3.579.2.593 1963 Unknown [id number] 2.16.840.1.962075.3.579.2.593 1963 Unknown [id number] 2.16.840.1.132670.3.579.2.593 1963 Unknown [id number] 2.16.840.1.039217.3.579.2.593 1963 Unknown [id number] 2.16.840.1.316082.3.579.2.593 1963 Unknown [id number] 2.16.840.1.281017.3.579.2.593 1963 Unknown [id number] 2.16.840.1.745250.3.579.2.593 1963 Unknown [id number] 2.16.840.1.812895.3.579.2.593 1963 Unknown [id number] 2.16.840.1.889110.3.579.2.593 1963 Unknown [id number] 2.16.840.1.650765.3.579.2.593 1963 Unknown [id number] 2.16.840.1.959923.3.579.2.593 1963 Unknown [id number] 2.16.840.1.946478.3.579.2.593 1963 Unknown [id number] 2.16.840.1.263136.3.579.2.718 1963 Unknown [id number] 2.16.840.1.045794.3.579.2.727 1963 Unknown [id number] 2.16.840.1.717674.3.579.2.727 1963 Unknown [id number] 2.16.840.1.485304.3.579.2.727 1963 Unknown [id number] 2.16.840.1.199488.3.579.2.727 1963 Unknown [id number] 2.16.840.1.010483.3.579.2.727 1963 Unknown [id number] 2.16.840.1.076335.3.579.2.727 1963 Unknown [id number] 2.16.840.1.385706.3.579.2.727 1963 Unknown [id number] 2.16.840.1.429078.3.579.2.727 1963 Unknown [id number] 2.16.840.1.159401.3.579.2.727 1959 Medicare [id number] 1959 Unknown [id number] Social History Date Type Detail Facility Start: 08-08-2021 Tobacco smoking status Never s moked tobacco (finding) [facility] Tobacco smoking status Never [facility] Sex Assigned At Male [facility] Start: 03-12-2023 End: 12-30-2023 Tobacco smoking status Ex-smoker (finding) [facility] [place] Start: 10-29-2021 Alcohol intake Current drinke r of alcohol (finding) [facility] Start: 1965 Sex Assigned At Not on file C [facility] Medical Equipment Procedure Code Equipment Code Equipment [...] 12-30-2023 Functional Status N/A [facility] 08-29-2023 Functional Status N/A [facility] 03-12-2023 Functional Status N/A [facility] 07-03-2022 Functional Status N/A [facility] Clinical Notes 08-27-2021 to 11-05-2024 Note Date & Type Note Facility 11-05-2024 Note Hospital Medicine Discharge Summary Final Discharge Diagnosis: Unstable angina s/p cardiac cath showing patent stent in LAD, moderate to severe disease of first diagonal branch of LAD, moderate at disease of left circumflex and RCA Coronary artery disease s/p PCI Syncope and collapse Hyperlipidemia Bxd-[id number]-yrthzoxpx type 2 diabetes mellitus Antiphospholipid syndrome Primary hypertension 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 male who came from home with past medical history of CAD s/p PCI with stenting, history of DVT/PE after COVID with IVC filter in place, hypertension, hyperlipidemia, antiphospholipid syndrome, DM2 presents as a direct admission from [facility] with a chief complaint of chest pain. Patient was seen in the [place] cardiology clinic today for a follow-up. He stated that this past Friday after making food for his grandkids he had significant chest pain with radiation into both of his arms with associated shortness of breath and diaphoresis. States that the episode lasted for 10 to 15 minutes and then resolved and that he has had none since. He also endorses at least 4 episodes of syncopal attacks always with postural changes over the last 4 to 5 months. Capacity Planner sent patient to the [place] emergency department where he was found to have an elevated troponin so he was sent to [facility] for further evaluation. Cardiology was consulted. Cardiac cath performed on 11/05/2024 showed: Patent stent in the proximal to mid left anterior descending coronary artery Moderate to severe disease of the jailed, branching, first diagonal branch of the left anterior descending that appears unchanged from prior angiography Mild to moderate disease of the left circumflex and right coronary arteries Normal global left ventricular systolic function by noninvasive imaging Calcific plaque in the radial and ulnar arteries evidenced angiographically Patient's beta-apolinar dose was decreased, warfarin resumed at the time of discharge. Patient is advised close follow-up with reimbursement coordinator after discharge. Surgical, Invasive or Diagnostic Procedures Done During Admission: Cardiac Cath Consultations During Admission: Cardiology Dear Dr. Ada MD, [place] is advised to follow up with you within 1-2 weeks. Items to follow up in ambulatory setting: Follow-up serial BMPs Follow-up with: Cardiology Scheduled appointments: Future Appointments Date Time Provider Department Center 12/16/2024 1:00 PM Dagoberto Cormier MD [facility] Your medication list START taking these medications Instructions Last Dose Given Next Dose Due aspirin 81 mg chewable tablet Chew 1 tablet (81 mg) in the morning. CHANGE how you take these medications Instructions Last Dose Given Next Dose Due metoprolol tartrate 25 mg tablet Commonly known as: Lopressor What changed: medication strength how much to take Take 1 tablet (25 mg) by mouth two times daily for 195 doses. rosuvastatin 40 mg tablet Commonly known as: Crestor What changed: when to take this Take 1 tablet (40 mg) by mouth once daily as directed. CONTINUE taking these medications Instructions Last Dose Given Next Dose Due amLODIPine 5 mg tablet Commonly known as: Norvasc Take 1 tablet (5 mg) by mouth in the morning. cholecalciferol 25 MCG (1000 units) tablet Commonly known as: Vitamin D-3 lisinopril 30 mg tablet take 1 tablet by mouth every morning omeprazole [address] capsule Commonly known as: PriLOSEC tiZANidine 4 mg tablet Commonly known as: Zanaflex venlafaxine XR 75 mg 24 hr capsule Commonly known as: Effexor-XR warfarin 4 mg tablet Commonly known as: Coumadin STOP taking these medications celecoxib 200 mg capsule Commonly known as: CeleBREX SUMAtriptan 25 mg tablet Commonly known as: Imitrex Where to Get Your Medications These medications were sent to [id number] - [place], [place] - [address] [place] [address] aspirin 81 mg chewable tablet metoprolol tartrate 25 mg tablet Doris is allergic to penicillins and sulfa (sulfonamide antibiotics). Disposition: Home or Self Care () Discharge Condition: Good Code Status: Full Code Diagnostic Results Hematology: Results from last 7 days Lab Units 11/05/2475611/05/246 11/04/24 1035 11/04/24 0529 WBC AUTO 10*3/uL -- 8.65 -- 8.24 HEMOGLOBIN g/dL -- 11.9* -- 11.6* HEMATOCRIT % -- 40.0 -- 39.5 MCV fL -- 71.7* -- 72.6* PLATELETS AUTO 10*3/uL -- 311 -- 308 INR 2.03* -- 2.42* -- Chemistry: Results from last 7 days Lab Units 11/05/24 07511/03/24 2247 SODIUM mmol/L 139 136 POTASSIUM mmol/L 4.1 3.8 CHLORIDE mmol/L 105 104 CO2 mmol/L 28 24 BUN mg/dL 20 21 CREATININE mg/dL 1.32* 1.11 GLUCOSE mg/dL 101* (more content not included)... [facility] 11-05-2024 Note Pharmacy Consult for Warfarin (Coumadin) Management - Daily Progress Note Doris uLis is a 59 y.o. male admitted for Unstable angina ([facility] Pharmacy was consulted warfarin dosing and monitoring for DVT, PE, or APS with goal INR 2-3. Patient has a past medical history of Coronary artery disease, Deep vein thrombosis ([facility]), Diabetes mellitus ([facility]), Hyperlipidemia, and Hypertension. Home Regimen Fri SAT SUN Dose 4 mg 4 mg 4 mg 4 mg 4 mg 4 mg 5 mg Source: [facility] INR Results from last 7 days Lab Units 11/05/24 0757 11/04/24 1035 11/03/24 2247 PROTIME Seconds 22.6* 25.8* 26.0* INR 2.03* 2.42* 2.45* Hgb/Hct/Plt: Results from last 7 days Lab Units 11/05/24 0756 11/04/24 0529 11/04/24 0026 11/03/24 2247 HEMOGLOBIN g/dL 11.9* 11.6* -- 11.6* HEMATOCRIT % 40.0 39.5 -- 39.0 PLATELETS AUTO 10*3/uL 311 308 307 326 Warfarin Therapy Current regimen: Dose per INR Bridging: heparin gtt (messaging primary to discuss discontinuation) Interacting medications: pantoprazole, rosuvastatin Dosing History During Current Admission Date INR Dose (mg) 2/5 2.45 HELD 2/6 2.42 HELD 2/7 2.03 See Plan Assessment and Plan Patient's INR today 2.03 is Therapeutic. Hemoglobin/hematocrit/platelet stable. Give warfarin 4 today. Monitor for s/sx of bleeding including epistaxis, hematuria, unusual bruising, hemoptysis, hematochezia as well as s/sx of stroke including impaired speech, unilateral paralysis, blurry vision. Pharmacy will continue to monitor the patient and adjust therapy as needed. Thanks for the consult. Cliff Bernardo, PharmD, 11/05/24 [facility] 11-05-2024 Note Cardiovascular Labor atory Report FINAL IMPRESSIONS: Patent stent in the proximal to mid left anterior descending coronary artery Moderate to severe disease of the jailed, branching, first diagonal branch of the left anterior descending that appears unchanged from prior angiography Mild to moderate disease of the left circumflex and right coronary arteries Normal global left ventricular systolic function by noninvasive imaging Calcific plaque in the radial and ulnar arteries evidenced angiographically RECOMMENDATIONS: Aggressive cardiovascular risk factor modification Optimal medical therapy for coronary artery disease should include aspirin, high intensity statin therapy, a beta-apolinar +/- a RAAS inhibitor Consider alternate etiologies for the patient's chest pain symptoms namely musculoskeletal, gastrointestinal, and/or pulmonary A 30-day event monitor given recurrent syncopal episodes and bradycardia arrhythmias evidence on telemetry Would recommend decreasing the patient's beta-apolinar given bradycardia Resume Coumadin given history of antiphospholipid syndrome and recurrent venous thromboembolism Further recommendations deferred to the inpatient services PROCEDURES: Ultrasound-guided access to the left radial artery, bilateral selective coronary angiography via a left radial approach METHODS: After risks, benefits, and alternatives were explained, written informed consent was obtained. The patient was prepped and draped in usual sterile fashion over the left wrist. Local infiltration anesthesia was achieved of the left wrist. Using a micropuncture kit, access to the left radial artery was obtained. A 6 [place] glide sheath was inserted without difficulty. Resistance advancing the Arias wire was encountered; therefore angiography via the radial sheath was performed. This revealed calcific plaque throughout the radial and ulnar arteries. This was crossed using a soft angled Glidewire. Bilateral selective coronary angiography was performed using JR 4.0 and JL 4.0 catheters. After reviewing the images, it was elected to conclude the procedure. The catheters were removed. The radial sheath was removed with application of a TR band per protocol to achieve optimal hemostasis. FINDINGS: Hemodynamics: AO 134/71 [89] LEFT VENTRICULOGRAPHY: This was not performed. Ejection fraction is 66% by echocardiography. CORONARY ARTERIES: Left main coronary artery: This arises from the left coronary cusp, it trifurcates into the left anterior descending, ramus intermedius, and left circumflex coronary arteries. It is free of significant stenoses.. Left anterior descending coronary artery: Shows evidence of a patent stent in the proximal to midportion adjacent to a jailed branching first diagonal. There is a long segment of 50% stenosis in the mid to distal portion with caliber reduction. The first diagonal is a small to moderate-sized branching vessel. Shows an ostial 60% stenosis and a 70 to 80% stenosis in the inferior branch. This is essentially unchanged if not slightly improved from angiography in 2021. Ramus intermedius coronary artery: This is a moderate size vessel with luminal irregularities. Left circumflex coronary artery: This shows luminal irregularities proximally, gives rise to a minute first obtuse marginal followed by a large branching second obtuse marginal. The second obtuse marginal shows a 30 to 40% proximal stenosis. The circumflex continues as a small caliber AV groove branch. Right coronary artery: This arises from the right coronary cusp, it is a dominant vessel giving rise to the posterior descending and posterolateral branches. It shows a 30 to 40% stenosis proximally followed by a sequential 40 to 50% stenosis. This appears unchanged from prior angiography. The distal circulation shows luminal irregularities. INDICATIONS: Unstable angina [facility] 11-05-2024 Note Cardiology Inpatient Progress Note Subjective HPI: Doris Luis is a 59 y.o. year old male patient with a PMH of CAD with hx PCI, DVT, DM II, HTN, HLD, former smoker, antiphospholipid syndrome, COVID hx DVT/PE s/p IVC filter. He is a patient of Dr. Cormier. He was seen by on 11/03/2024 in the outpatient setting complaining of syncope and chest pain per she noticed he was very short of breath walking across the room. He was noted to have an episode of significant chest pain on Friday after making food for his grandkids and describes it as retrosternal chest pressure rating radiating to both arms with associated shortness of breath and intense sweating for which the episode lasted for approximately 10 to 15 minutes and resolved. He was also noted to have at least 4 episodes of syncopal attacks typically with postural changes over the last 4 to 5 months. He was subsequently recommended to go to the emergency room for further testing. He was then transferred to the [facility] for further evaluation and management 11/05/2024: The patient was seen and examined at the bedside. Patient is lying in bed, comfortably in no apparent acute distress, his is at the bedside. He denies chest pain shortness of breath palpitations dizziness or lightheadedness. Warfarin is currently on hold for cardiac cath, heparin infusion currently. INR is 2.03 today 11/05/24. PAST MEDICAL HISTORY: Past Medical History: Diagnosis Date Coronary artery disease Deep vein thrombosis (CMS/HCC) Diabetes mellitus (CMS/HCC) Hyperlipidemia Hypertension PAST SURGICAL HISTORY: Past Surgical History: Procedure Laterality Date CARDIAC CATHETERIZATION CORONARY STENT PLACEMENT INFERIOR VENA CAVA ANGIOPLASTY / STENTING FAMILY HISTORY: family history includes Coronary artery disease in his father and mother. SOCIAL HISTORY: Social History Tobacco Use Smoking status: Former Types: Cigarettes Smokeless tobacco: Never Substance Use Topics Alcohol use: Yes Comment: occasional REVIEW OF SYSTEMS: General: Denies fever, chills, fatigue, weight loss, or malaise. HENT: Head: Denies headache or dizziness. Eyes: Denies vision changes. Nose: Denies nasal congestion, discharge, or epistaxis. Throat: Denies pain or difficulty swallowing. Pulmonary: Denies shortness of breath, cough, wheezing, or hemoptysis. Cardiovascular: Denies chest pain, palpitations, dizziness, or syncope. Peripheral Vascular: Denies leg swelling, cold extremities or claudication. Abdomen: Denies abdominal pain, nausea, vomiting, diarrhea, constipation, or bloating. No changes in appetite. Neurological: Denies headaches, weakness, numbness, tingling, or difficulty with coordination. Skin: Denies rashes, lesions, or itching. ALLERGIES: Allergies Allergen Reactions Penicillins Hives Sulfa (Sulfonamide Antibiotics) Hives Objective 12-24 hour telemetry reviewed: SR 70's. CURRENT MEDS amLODIPine, 5 mg, oral, Daily lisinopril, 30 mg, oral, Daily metoprolol tartrate, 50 mg, oral, BID pantoprazole, 40 mg, oral, Daily rosuvastatin, 40 mg, oral, Nightly venlafaxine XR, 75 mg, oral, Daily heparin, 0-28 Units/kg/hr, Last Rate: 13 Units/kg/hr (11/05/24 0935) PRN medications: acetaminophen, melatonin, tiZANidine Patient Vitals for the past 24 hrs: BP Temp Temp src Pulse Resp SpO2 Weight 11/05/24 1220 109/79 36.6 ???C (97.9 ???F) Temporal 53 24 93 % -- 11/05/24 0933 124/82 -- -- 62 -- -- -- 11/05/24 0802 140/77 36.4 ???C (97.5 ???F) Temporal 68 (!) 27 93 % -- 11/05/24 0507 110/74 36.6 ???C (97.9 ???F) Temporal 74 17 96 % -- 11/05/24 0400 -- -- -- -- -- -- 103 kg (227 lb 12.8 oz) 11/05/24 0012 125/84 -- -- 89 23 94 % -- 11/04/24 2120 128/88 -- -- 85 -- -- -- 11/04/24 1949 113/74 36.6 ???C (97.9 ???F) Temporal 76 21 96 % -- 11/04/24 1613 95/55 36.7 ???C (98.1 ???F) Temporal 74 (!) 27 91 % -- 11/04/24 1254 123/81 36.9 ???C (98.4 ???F) Temporal 54 (!) 28 95 % -- BP 109/79 (BP Location: Left arm, Patient Position: Lying) Pulse 53 Temp 36.6 ???C (97.9 ???F) (Temporal) Resp 24 Ht 1.778 m (5' 10 ) Wt 103 kg (227 lb 12.8 oz) SpO2 93% BMI 32.69 kg/m??? Wt Readings from Last 3 Encounters: 11/05/24 103 kg (227 lb 12.8 oz) 11/03/24 103 kg (228 lb) 08/03/24 105 kg (231 lb) PHYSICAL EXAM: General: Alert and oriented, Appears comfortable in no acute distress. HENT: Head: Normocephalic, atraumatic. Eyes: Conjunctiva clear, sclera anicteric. No periorbital edema. Nose: No nasal congestion or discharge. Throat: Mucous membranes moist and pink. Neck: Supple, no lymphadenopathy. No bruits. No jugular venous distension (JVD) at 45???. Pulmonary: Symmetrical chest rise, no accessory muscle use. Clear to auscultation bilaterally. No wheezes, rales, or rhonchi. No tenderness. Cardiovascular: No visible heaves, lifts, or abnormal pulsations. Regular rate and rhythm. S1 and S2 presen (more content not included)... [facility] 11-04-2024 Note Hospital Medicine Daily Progress Note - 11/04/2024 11:23 AM; Room: 3167/3167-01 Admission: 11/03/2024 10:00 PM; Length of stay: 1 days THE HOSPITALIST TEAM PREFERS TO USE [employer] FOR NON-URGENT COMMUNICATION 7AM-7PM. IF I DO NOT RESPOND WITHIN 20 MINUTES OR URGENT MATTERS, PLEASE CALL THROUGH THE [facility]AT [facility]ER. FROM 7PM-7AM, PLEASE PAGE [phone](COVR). Code Status: Full Code Barriers to Discharge: cardiology workup Expected Discharge Date: tomorrow Discharge Destination: home Overview Patient is seen for evaluation and management of unstable angina. Subjective Patient is a 59 y/o M seen at bedside this AM, doing well. Patient denies any symptoms today. He is currently NPO for possible procedures by cardiology. Physical Exam Visit Vitals BP 135/87 Pulse 76 Temp 36.8 ???C (98.2 ???F) (Temporal) Resp 23 Intake/Output Summary (Last 24 hours) at 11/04/2024 1123 Last data filed at 11/04/2024 0535 Gross per 24 hour Intake 350 ml Output 675 ml Net -325 ml Physical Exam Constitutional: General: He is not in acute distress. Appearance: Normal appearance. He is not ill-appearing. HENT: Head: Normocephalic. Eyes: General: No scleral icterus. Extraocular Movements: Extraocular movements intact. Cardiovascular: Rate and Rhythm: Normal rate. Pulmonary: Effort: Pulmonary effort is normal. No respiratory distress. Breath sounds: No stridor. Abdominal: General: Abdomen is flat. Palpations: Abdomen is soft. Tenderness: There is no abdominal tenderness. Musculoskeletal: Cervical back: Neck supple. Right lower leg: No edema. Left lower leg: Edema present. Skin: General: Skin is warm and dry. Findings: Bruising present. Neurological: General: No focal deficit present. Mental Status: He is alert and oriented to person, place, and time. Psychiatric: Mood and Affect: Mood normal. Behavior: Behavior normal. Estimated body mass index is 32.66 kg/m??? as calculated from the following: Height as of this encounter: 1.778 m (5' 10 ). Weight as of this encounter: 103 kg (227 lb 9.6 oz). 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 APS (antiphospholipid syndrome) ([facility]) Primary hypertension History of DVT (deep vein thrombosis) Hx of pulmonary embolus Syncope and collapse Coronary artery disease involving [place] coronary artery of [place] heart without angina pectoris Assessment and Plan Unstable angina ([facility]) -Patient with an episode of chest pain while making his grandchildren dinner this past Friday which subsided after 10 to 15 minutes -Elevated troponin of 47 at [facility] -CXR completed outside hospital shows no acute process -EKG completed at [facility] shows normal sinus rhythm -Repeat troponins here 0.03, will continue to trend -Continue heparin infusion -Plan for cardiac cath Syncope and collapse -Patient reports positive orthostatic vitals in his cardiology office, states that all of his syncopal events have been when he is gone from a sitting to a standing position -Order carotid ultrasound -Patient may benefit from event monitor outpatient Coronary artery disease involving [place] coronary artery of [place] heart without angina pectoris s/p PCI Mixed hyperlipidemia -Continue Crestor Type 2 diabetes mellitus without complication, without long-term current use of insulin ([facility]) Glucose checks ACHS Continue sliding scale insulin APS (antiphospholipid syndrome) ([facility]) -Warfarin on hold for cardiac cath, continue heparin infusion Primary hypertension -Continue Lopressor twice daily, lisinopril, amlodipine 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 -Warfarin on hold for cardiac cath, continue heparin infusion VTE Prophylaxis: IV heparin Scheduled Meds amLODIPine, 5 mg, oral, Daily lisinopril, 30 mg, oral, Daily metoprolol tartrate, 50 mg, oral, BID pantoprazole, 40 mg, oral, Daily rosuvastatin, 40 mg, oral, Nightly venlafaxine XR, 75 mg, oral, Daily heparin, 0-28 Units/kg/hr, Last Rate: 15 Units/kg/hr (11/04/24 0000) Pertinent Investigations Hematology: Results from last 7 days Lab Units 11/04/24 0529 11/04/24 0026 11/03/24 2247 WBC AUTO 10*3/uL 8.24 -- 8.17 HEMOGLOBIN g/dL 11.6* -- 11.6* HEMATOCRIT % 39.5 -- 39.0 MCV fL 72.6* -- 71.6* PLATELETS AUTO 10*3/uL 308 307 326 INR -- -- 2.45* Chemistry: Results from last 7 days Lab Units 11/03/24 2247 SODIUM mmol/L 136 POTASSIUM mmol/L 3.8 CHLORIDE mmol/L 104 CO2 mmol/L 24 BUN mg/dL 21 CREATININE mg/dL 1.11 GLUCOSE mg/dL 101* MAGNESIUM mg/dL 1.8* CALCIUM mg/dL 9.0 PHOSPHORUS mg/dL 3.2 Results from last 7 days Lab Units 11/03/24 2247 AST U/L 14 ALT U/L 14 (more content not included)... [facility] 11-04-2024 Note Chart reviewed asses sment plan reviewed with nurse practitioner and agreed [facility] 11-04-2024 Note -Continue metoprolol , lisinopril, amlodipine [facility] 11-04-2024 Note -Patient with an epi sode of chest pain while making his grandchildren dinner this past Friday which subsided after 10 to 15 minutes -Was found to have an elevated troponin of 47 at [facility] earlier today and was transferred to [facility] for possible heart cath -Patient reports most recent cardiac testing was around 2 years ago -CXR completed outside hospital shows no acute process -EKG completed at [facility] shows normal sinus rhythm -Repeat troponin at [facility] found to be 0.03, will continue to trend -Will start patient on heparin infusion if need for cardiac cath arises as patient does take warfarin at home [facility] 11-04-2024 Note -Warfarin on hold in case of procedure, continue heparin infusion [facility] 11-04-2024 Note -Patient reports pos itive orthostatic vitals in his cardiology office earlier today and states that all of his syncopal events have been when he is gone from a sitting to a standing position -Patient may benefit from event monitor outpatient [facility] 11-04-2024 Note -ISS, ACHS [facility] 11-04-2024 Note -Continue Crestor [facility] 11-04-2024 Note -S/p PCI with stenting [facility] 11-04-2024 Note -Warfarin on hold se condary to possible procedure, continue heparin infusion [facility] 11-03-2024 Note Hospital Medicine History and Physical 11/03/2024 10:54 PM THE HOSPITALIST TEAM PREFERS TO USE [employer] FOR NON-URGENT COMMUNICATION 7AM-7PM. IF I DO NOT RESPOND WITHIN 20 MINUTES OR URGENT MATTERS, PLEASE CALL THROUGH THE HAT LINER. FROM 7PM-7AM, PLEASE PAGE [phone](COVR). Chief Complaint Direct admission from [facility] with chief complaint of chest pain History of Present Illness Doris Luis is an 59 y.o. male who came from home with past medical history of CAD s/p PCI with stenting, history of DVT/PE after COVID with IVC filter in place, hypertension, hyperlipidemia, antiphospholipid syndrome, DM2 presents as a direct admission from [facility] with a chief complaint of chest pain. Patient was seen in the [place] cardiology clinic today for a follow-up. He stated that this past Friday after making food for his grandkids he had significant chest pain with radiation into both of his arms with associated shortness of breath and diaphoresis. States that the episode lasted for 10 to 15 minutes and then resolved and that he has had none since. He also endorses at least 4 episodes of syncopal attacks always with postural changes over the last 4 to 5 months. Capacity Planner sent patient to the [place] emergency department where he was found to have an elevated troponin so he was sent to [facility] for further evaluation. Review of System and Physical Exam Heart Rate: [57-72] 67 Resp: [20] 20 BP: (100-128)/(64-90) 128/90 Physical Exam Vitals reviewed. Constitutional: Appearance: He is normal weight. HENT: Head: Normocephalic. Nose: Nose normal. Mouth/Throat: Mouth: Mucous membranes are moist. Pharynx: Oropharynx is clear. Eyes: Conjunctiva/sclera: Conjunctivae normal. Cardiovascular: Rate and Rhythm: Normal rate and regular rhythm. Pulses: Normal pulses. Heart sounds: Normal heart sounds. Pulmonary: Effort: Pulmonary effort is normal. Breath sounds: Normal breath sounds. Abdominal: General: Abdomen is flat. Bowel sounds are normal. Musculoskeletal: General: Normal range of motion. Skin: General: Skin is warm and dry. Capillary Refill: Capillary refill takes less than 2 seconds. Neurological: General: No focal deficit present. Mental Status: He is alert and oriented to person, place, and time. Mental status is at baseline. Psychiatric: Mood and Affect: Mood normal. Review of Systems Constitutional: Positive for diaphoresis. Negative for appetite change and chills. HENT: Negative for congestion and dental problem. Respiratory: Positive for shortness of breath. Negative for chest tightness, wheezing and stridor. Cardiovascular: Positive for chest pain. Negative for palpitations. Gastrointestinal: Negative for abdominal pain, constipation, diarrhea, nausea and vomiting. Genitourinary: Negative for difficulty urinating and dysuria. Musculoskeletal: Negative for arthralgias and back pain. Neurological: Positive for dizziness, syncope, light-headedness and numbness. Negative for seizures, facial asymmetry, speech difficulty and headaches. Psychiatric/Behavioral: Negative for agitation and behavioral problems. Assessment and Plan Assessment & Plan Unstable angina ([facility]) -Patient with an episode of chest pain while making his grandchildren dinner this past Friday which subsided after 10 to 15 minutes -Was found to have an elevated troponin of 47 at [facility] earlier today and was transferred to [facility] for possible heart cath -Patient reports most recent cardiac testing was around 2 years ago -CXR completed outside hospital shows no acute process -EKG completed at [facility] shows normal sinus rhythm -Repeat troponin at [facility] found to be 0.03, will continue to trend -Will start patient on heparin infusion if need for cardiac cath arises as patient does take warfarin at home Syncope and collapse -Patient reports positive orthostatic vitals in his cardiology office earlier today and states that all of his syncopal events have been when he is gone from a sitting to a standing position -Patient may benefit from event monitor outpatient Coronary artery disease involving [place] coronary artery of [place] heart without angina pectoris -S/p PCI with stenting Mixed hyperlipidemia -Continue Crestor Type 2 diabetes mellitus without complication, without long-term current use of insulin ([facility]) -ISS, ACHS APS (antiphospholipid syndrome) ([facility]) -Warfarin on hold in case of procedure, continue heparin infusion Primary hypertension -Continue metoprolol, lisinopril, amlodipine History of DVT (deep vein thrombosis) Hx of pulmonary embolus 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 [facility] 11-03-2024 Note [facility] Cardiology Clinic Note Chief Complaint: Patient here c/o syncope and chest pain. says she notices he's very SOB just walking across the room. HPI: Doris Luis is a 59 y.o. with h/o CAD, prior PCI, her [...] is currently on no medications for diabetes. HPI PMHx: CAD with hx PCI, DVT, [...] Denies c/o CP, orthopnea, PND, palpitations, syncope. UPDATE 11/03/2024 The patient had an episode of significant chest pain this past Friday after making food for his grandkids; he described retrosternal chest pressure, radiation to both arms, shortness of breath and intense sweating. The episode lasted for 10 to 15 minutes and resolved. He has had none since. His states that he appears to be much more short of breath than usual with mild exertion. He also has had at least 4 episodes of syncopal attacks typically with postural changes over the past 4 to 5 months. Cardiology ROS: Review of Systems Cardiovascular: Positive [...] (40 mg) by mouth once daily as directed. (Patient taking differently: Take 40 mg by mouth at bedtime.), Disp: 90 tablet, Rfl: 3 SUMAtriptan (Imitrex) 25 mg tablet, TAKE 1 TABLET BY MOUTH TWICE DAILY NEEDED take second dosage at least 2 (TWO) hours after first dose MUST LAST 30 DAYS, Disp: , Rfl: venlafaxine XR (Effexor-XR) 75 mg 24 hr capsule, Take 75 mg by mouth in the morning., Disp: , Rfl: warfarin (Coumadin) 4 mg tablet, TAKE 1 TAB BY MOUTH EVERY OTHER DAY (EXCEPT 5MG ON SUNDAYS), Disp: , Rfl: tiZANidine (Zanaflex) 4 mg tablet, Take 4 mg by mouth if needed at bedtime for muscle spasms., Disp: , Rfl: Last Recorded Vitals BP 100/64 (BP Location: Right arm, Patient Position: Standing) Pulse 72 Ht 1.778 m (5' 10 ) Wt 103 kg (228 lb) SpO2 95% BMI 32.71 kg/m??? Physical Examination: GENERAL: alert and oriented [...] normal, K+ normal Last lab values have be (more content not included)... [facility] 08-03-2024 Note Cardiovascular Medic [facility] SUBJECTIVE Chief Complaint Patient presents with [...] Problem List Diagnosis Coronary artery disease involving [place] coronary artery of [place] heart without angina pectoris Benign essential HTN [...] General: Normal ran (more content not included)... [facility] 08-03-2024 Note Patient here for [...] All other systems reviewed and are negative. [facility] 12-30-2023 Evaluation + Plan note Diagnostic Tests PendingElectrolyte Panel 12/30/23 [facility] 12-30-2023 Hospital Discharge instructions Patient Education 12/30/2023 [...] include: ?8 oz (237 mL) of milk, vkqafcn-nghtqcswkoya-xoecp milk, and calcium-fortifiedfruit juice. Calcium-fortified means that [...] ?Spinach (cooked), rhubarb, beets, sweet potatoes, and Surinamese chard. ?Peanuts. ?Potato chips, greenlandic fries, and baked potatoes with skin on. ?Nuts and nut products. ?Chocolate. If you regularly take a diuretic medicine, make sure to eat at least 1 or 2 servings of fruits or vegetables that are high in potassium each day. These include: ?Avocado. ?Banana. ?[place]upont, prune, carrot, or tomato juice. ?Baked potato. [...] magnesium, fish oil, or vitamin B6. Take ssbe-hsg-jrloqyp and prescription medicines only as told by [...] Casseroles. Pizza. Lasagna. Frozen meals. Potato chips. Botswanan fries. The items listed above may not [...] provider. Document Revised: 12/26/2022 Document Reviewed: 12/26/2022 [employer] Patient Education 2022 [employer]. Follow Up Care 02/18/2023 15:25:52 With:XIOMARA England APRN, Elsy Skaggs, JOSE, URL Address: When:Within 1 Year(s) Comments:w/PSA With:EDGAR DANIELLE PA-C, URL Address: [address] [place] [address] When: Unknown With:XIOMARA England APRN, Elsy Skaggs, FAM, URL Address: When: Unknown [facility] 08-29-2023 Note Chief Complaint consultation for rectal [...] managed by Dr Caballero. 2. Anticoagulated (Z79.01: emt intermediate (current) use of 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) see # 1 [...] obstructing calculus Hyperten (more content not included)... [facility] Comment on above: Result Comment: Elec tronically Signed By: ANNAMARIE ISRAEL, Jamil Maldonado\Date and Time Signed: 08/29/23 14:39 EST 04-01-2023 Note Chief Complaint consultation for constipation [...] (08/09/2019), Cystoscopic insertion (more content not included)... [facility] Comment on above: Result Comment: Elec [...] at home: Medicines ? 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 ? Change your dressing as told by [...] by your health (more content not included)... [facility] 07-03-2022 Hospital Discharge instructions Patient Education 07/03/2022 13:32:37 Kidney Stones, Mjrd-ek-Nojk Kidney Stones Kidney stones are rock-like masses [...] Follow these instructions at home: Medicines Take tbzj-rcm-faiyril and prescription medicines only as told by [...] 03/03/2009 Document Revised: 02/01/2020 Document Reviewed: 02/01/2020 [employer] Patient Education 2019 [employer] 07/03/2022 13:32:36 Calorie Counting for Weight [...] 09/15/2006 Document Revised: 06/04/2019 Document Reviewed: 08/15/2017 [employer] Patient Education [employer]. Follow Up Care 06/26/2021 10:22:59 With:ELIJAH ALLEN, EDGAR Paniagua, URL Address: [address] [facility] [place] [address] When: Unknown [facility] 07-03-2022 Evaluation + Plan note Diagnostic Tests PendingPSA Total 07/03/22 [facility] 01-17-2022 Evaluation + Plan note Extrac jing from: Title:ANES POSTOP MAC/GEN NOTE Author:Fabián Robertson JR Date:01/17/22 Plan Transfer/ Discharge: Patient can be discharged from PACU when criteria met. Condition good. Extracted from: Title:ANES PREOP GEN ADULT NOTE Author:Fabián Turcios JR, DO Date:01/17/22 Plan [place] Society of Anesthesiologists (ASA) physical status classification: Class III. Anesthetic Preoperative Plan Anesthesia: General. . Anesthetic plan, risks, benefits, and alternatives discussed with the patient and/or family. Pt. and/or family present and agree to proceed as planned.. Discussed the importance of abstaining from tobacco products, and offered counseling if desired. Future Appointments Appointment Date:2022 10:45:00 AM Scheduled Provider:David Pacheco Jr., MD [facility] Type:[facility] Office Visit [facility]04-21-2022 Hospital Discharge instructions Patient Education 01/17/2022 [...] Up Care 12/31/2021 11:37:23 With:EDGAR DANIELLE Address: [address] [place] [id number] [facility] (1) When:6 weeks Comments:KUB x-ray with next visit. [facility]03-29-2022 Hospital Discharge instructions Patient Education 12/25/2021 [...] urethra. Follow these instructions at home: Take mnfb-ivp-svlllty and prescription medicines only as told by [...] 09/15/2006 Document Revised: 08/10/2019 Document Reviewed: 10/20/2017 [employer] Patient Education 2020 [employer]. Follow Up Care 12/24/2021 14:06:11 With:Junior Mccollum MD, David Darling, URO Address: When: Unknown Comments:schedule ESWL [facility]21 NoteHNO ID: [id number] Author: Tracey Eagle MD Service: ? Author Type: Physician Type: Progress Notes Filed: 08/27/2021 10:02 AM Note Text: [facility] Patient: Doris Luis Provider Tracey Eagle MD : 1965 Location: [facility] Date of Service: August 27, 2021 [...] LUCACREA, LUCREACL, LWK, LUSUL in the last [id number] hours. 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 No current facility-administered medications for [facility] Future Appointments Appointment Date:2022 10:45:00 AM Scheduled Provider:David Pacheco Jr., MD Location:[facility] Appointment Type:URO Office Visit [facility] evaluation + Plan note Future Appointments Appointment Date:01/17/2022 10:00:00 AM Scheduled Provider: Location:[facility] Appointment Type:Surgery FT Appointment Date:2022 10:45:00 AM Scheduled Provider:David Pacheco Jr., MD Location:[facility] Future Appointments Appointment Date:08/26/2023 10:00:00 AM Scheduled Provider:EDGAR DANIELLE PA-C Location:[facility] Appointment Type:URO Office Visit [facility] Surgery [place] Evaluation + Plan note Future Appointments Appointment Date:09/30/2023 02:30:00 PM Scheduled Provider:EDGAR DANIELLE PA-C Location:[facility] Appointment Type:URO Office Visit General Surgery [place] [facility] course Narrative No data available for this section [facility] Hospital Discharge instructions No data available for this section [facility] No data available for this section [facility] Summary Purpose Family History No Family [...] section and content) DATE CREATED AUTHOR 01/21/2019 [facility] DATE CREATED AUTHOR AUTHOR'S ORGANIZ ATION 11/06/2021 [facility] DATE CREATED AUTHOR AUTHOR'S ORGANIZ ATION 04/08/[address] 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 [facility] [employer] [facility]. provides no warranty or guarantee of the accuracy or completeness of information in this document.
== END 2024-12-15 12:03 | disposition home or self-care (01) ==
LOC: RAD 12:04
PROVIDERS: PCP Family Medicine; Visit Provider Family Medicine
DX: S20.219A Contusion of unspecified front wall of thorax, initial encounter (principal)
CPT/HCPCS: 71046; 71100

== ENCOUNTER 2025-03-02 10:53 | Outpatient (OUT) | payer MEDICARE, SELFPAY ==
--- OUTSIDE RECORDS SUMMARY | 2025-01-24 06:45 | XMS_ITS ---
Author Organization The [facility] in [place] Address [address] [place] [address] Care Team Providers Care Financial Analysis Consultant Name Role Phone Jamie Simmons Primary Care Provider Allergies Allergen (clinical drug ingredient) Drug/Non Drug Allergy documented on EMR Reaction Allergy Type Onset Date Status Penicillin (uncoded) hives Allergy Active Substance with sulfonamide structure and antibacterial mechanism of action (substance) Sulfa Antibiotics migraine Drug Allergy Active REASON FOR VISIT Presents to office alone for c/o flare of sciatica Medications Medication SIG (Take, Route, Frequency, Duration) Notes Start Date End Date Status Warfarin Sodium 5 MG 1 tablet Orally Onc e a day for 30 days 02/13/2023 Active Warfarin Sodium 4 MG take 1 tablet by [facility] once daily for 30 Active Venlafaxine HCl ER 75 MG take 1 capsule by mouth once daily for 90 Active Vitamin D Active traMADol HCl 50 MG 1 tablet as needed O rally tid for 7 days 12/15/2024 Active tiZANidine HCl 4 MG 1 tablet at bedtime as needed Orally Once a day for 30 days 07/23/2024 Active Potassium Chloride ER 20 MEQ 1 tablet with food Orally Once a day Active Rosuvastatin Calcium 40 MG 1 tablet Oral ly Once a day Active One Touch Ultra Test Strips - 1 test strip via meter once daily DX E11.9 for 90 days 12/16/2023 Active OneTouch Ultra Blue Active Metoprolol Tartrate 25 MG TAKE 1 TABLET BY MOUTH TWICE DAILY WITH FOOD for 30 days Active Multiple Vitamins-Iron - as directed Orally Active Lisinopril 30 MG 1 tablet Orally Once a day for 30 days 12/01/2024 Active amLODIPine Besylate 5 MG 1 tablet Orally Once a day for 30 days 01/24/2025 Active Omeprazole 20 mg TAKE 2 CAPSULES BY M [facility] DAILY for 90 Active Lancets - as directed Active Imitrex 25 MG 1 tablet at least 2 hours between doses as needed Orally Twice a day for 30 days PRN Active Ferrous Sulfate 325 (65 Fe) MG 1 tablet Orally twice daily for 30 days 03/17/2024 Active Glucose Meter Test - as directed In Vitro Active Coumadin 3 MG 1 tablet Orally Once a day for 30 day(s) Active Albuterol Sulfate HFA 108 (90 Base) MCG/ACT 2 puffs as needed for SOB Inhalation every 4 hrs for 30 02/25/2023 Active Celecoxib 200 MG take 1 capsule by mo [facility] twice a day for 30 Active Social History Tobacco Use: Social History Observation Description Date Details (start date - stop date) Former Smoker NA - NA Tobacco Use/Smoking Question Answer Notes Patient is a former smoker AUDIT-C (Standard) Question Answer Notes Did you have a drink containing alcohol in the p ast year? No Points 0 Interpretation Negative Vital Signs Weight 235.8 lbs 01/24/2025 Height 69 in 01/24/2025 Blood pressure systolic 150 mm Hg 01/25/20 25 Blood pressure diastolic 100 mm Hg 025 BMI 34.82 kg/m2 01/24/2025 Encounters Encounter Location Date Provider Diagnosis [address] [address] 01/24/2025 Jamie Simmons Sciatic leg pain M54.30 Assessments Encounter Date Diagnosis (ICD Code) Assessment Notes Treatment Notes Treatment Clinical Notes Section Notes 01/24/2025 Sciatic leg pain (ICD-10 - M54.30) Plan Of Treatment Medication Medication Name Sig Start Date Stop Date Notes amLODIPine Besylate 5 MG 1 tablet Orally Once a day for 30 days 01/24/2025 Progress Notes * Jose PARKER EDOB: [birth year] (59 yo M)Acc No.[id number]:01/24/2025 Progress Note Patient: Jose BRANDON Provider: Fide Simmons ([facility])MD :1965 A ge:59 Y S ex:Male Date:01/24/2025 Address:[id number] Check In:10:49 AM ESTCheck O ut:11:18 AM EST Subjective: * Chief Complaints: * P resents to office alone for c/o flare of sciatica * HPI: G eneral: n o injury - 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 * Active Problem List M77.12 Lateral epicondyliti s, left elbow Modified On:02/20/2023 Status:confirmed N20.0 Calculus of kidney Modified On:02/20/2023 Status:confirmed Z79.01 prison (current) use of 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 Modified On:02/25/2023 Status:confirmed G43.909 Migraine headache Modified On:02/20/2023 Status:confirmed E78.5 Hyperlipidemia Modified On:02/20/2023 Status:confirmed I10 Hypertension Modified On:02/20/2023 Status:confirmed M06.9 Rheumatoid arthritis Modified On:02/25/2023 Status:confirmed K21.9 GERD (gastroesophage al reflux disease) Modified On:02/20/2023 Status:confirmed E03.9 Hypothyroidism Modified On:02/20/2023 Status:confirmed F41.9 Anxiety Modified On:02/20/2023 Status:confirmed I25.10 Coronary artery dise ase Modified On:03/19/2023 Status:confirmed E55.9 Vitamin D deficiency Modified On:02/20/2023 Status:confirmed M50.30 Degenerative disc di sease, cervical Modified On:02/20/2023 Status:confirmed M54.16 Lumbar radiculopathy Modified On:02/20/2023 Status:confirmed M25.50 Arthralgia Modified On:02/20/2023 Status:confirmed Z86.718 History of DVT (deep vein thrombosis) Modified On:03/19/2023 Status:confirmed R60.0 Edema leg Modified On:02/20/2023 Status:confirmed M51.36 Degenerative disc di sease, lumbar Modified On:02/20/2023 Status:confirmed E11.9 Diabetes mellitus ty pe 2, controlled Modified On:03/19/2023 Status:confirmed Z87.891 History of tobacco a buse Modified On:03/19/2023 Status:confirmed H83.09 Labyrinthitis Modified On:02/20/2023 Status:confirmed K46.9 Hernia, abdominal Modified On:02/20/2023 Status:confirmed D68.62 Lupus anticoagulant disorder Modified On:02/25/2023 Status:confirmed E11.9 Diet-controlled diab etes mellitus Modified On:02/20/2023 Status:confirmed N28.1 Renal cyst, acquired , right Modified On:03/19/2023 Status:confirmed D68.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-cardiolipin ant ibody syndrome Modified On:02/20/2023 Status:confirmed M26.629 TMJ syndrome Modified On:02/20/2023 Status:confirmed T14.8XXA Bruising Modified On:02/20/2023 Status:confirmed I82.91 Recurrent thrombus Modified On:02/20/2023 Status:confirmed U07.1 COVID-19 Modified On:02/20/2023 Status:confirmed Z86.16 History of COVID-19 Modified On:03/19/2023 Status:confirmed R59.0 Cervical lymphadenop athy Modified On:02/20/2023 Status:confirmed R20.9 Paresthesias/numbnes s Modified On:02/20/2023 Status:confirmed M51.26 Lumbar disc herniati on Modified On:04/06/2019U Status:confirmed K59.00 Constipation Modified On:03/11/2023U Status:confirmed E66.9 Obesity, unspecified Modified On:03/19/2023U Status:confirmed R06.09 CASTILLO (dyspnea on exer tion) Modified On:03/07/2023U Status:confirmed K64.9 Hemorrhoid Modified On:11/09/2023W/U Status:confirmed M19.90 Arthritis Modified On:12/12/2023W/U Status:confirmed Z00.00 Well adult Modified On:03/16/2024W/U Status:confirmed M25.559 Hip pain Modified On:03/16/2024W/U Status:confirmed D64.9 Anemia Modified On:03/17/2024W/U Status:confirmed M54.30 Sciatic leg pain Modified On:06/09/2024W/U Status:confirmed * Medical History: * Surgical History: T onsilectomy 1988Lapoma 1994Hemroid Removal 2009Miniscus surgery 2011lumbar surgery Dr Matson 12/2018Cardiac Catheterization-07/12/2019 , 03/20/2022; LAD stent IVC Filter Thrombectomy ataracts 03/18/2023olonoscopy 09/17/2023 * Hospitalization/Major Diagno stic Procedure: C ovid-19-TBH 07/27/2021 * Family History: F ather: , Heart Disease, diagnosed with Unspecified heart disease. M other: , Heart Disease, diagnosed with Unspecified heart disease. B rother(s): alive. S ister(s): alive. S on(s): alive. D marshaller(s): alive. 3 brother(s) , 2 sister(s) . 1 son(s) , 2 daughter(s) . . * Social History: T obacco Use: L M: Additional Tobacco Questions N umber of Years Pt Smoked: 4 N umber of Packs per Day: . 5 When did you stop smoking: Quit 36 years ago. Tobacco Use/Smoking P atient is a f ormer smoker D rug/Alcohol: A DUNCAN-C (Standard) D id you have a drink containing alcohol in the past year? N o P oints 0 I nterpretation N egative * Medications: T akingAlbuterol Sulfate HFA 108 (90 Base) MCG/ACT Aerosol Solution 2 puffs as needed for SOB Inhalation every 4 hrs Celecoxib 200 MG Capsule take 1 capsule by mouth twice a day Coumadin 3 MG Tablet 1 tablet Orally Once a day Ferrous Sulfate 325 (65 Fe) MG Tablet 1 tablet Orally twice daily Glucose Meter Test(Glucose Blood) - Strip as directed In Vitro Imitrex(SUMAtriptan Succinate) 25 MG Tablet 1 tablet at least 2 hours between doses as needed Orally Twice a day , Notes to Pharmacist: PRNLancets - Miscellaneous as directed Lisinopril 30 MG Tablet 1 tablet Orally Once a day Metoprolol Tartrate 25 MG Tablet TAKE 1 TABLET BY MOUTH TWICE DAILY WITH FOOD Multiple Vitamins-Iron - Tablet as directed Orally Omeprazole 20 mg Capsule Delayed Release TAKE 2 CAPSULES BY MOUTH DAILY One Touch Ultra Test Strips - Strip 1 test strip via meter once daily DX E11.9 OneTouch Ultra Blue Potassium Chloride ER 20 MEQ Tablet Extended Release 1 tablet with food Orally Once a day Rosuvastatin Calcium 40 MG Tablet 1 tablet Orally Once a day tiZANidine HCl 4 MG Tablet 1 tablet at bedtime as needed Orally Once a day traMADol HCl 50 MG Tablet 1 tablet as needed Orally tid Venlafaxine HCl ER 75 MG Capsule Extended Release 24 Hour take 1 capsule by mouth once daily Vitamin D Warfarin Sodium 5 MG Tablet 1 tablet Orally Once a day Warfarin Sodium 4 MG Tablet take 1 tablet by mouth once daily Taking Albuterol Sulfate HFA 108 (90 Base) MCG/ACT Aerosol Solution 2 puffs as needed for SOB Inhalation every 4 hrs Taking Celecoxib 200 MG Capsule take 1 capsule by mouth twice a day Taking Coumadin 3 MG Tablet 1 tablet Orally Once a day Taking Ferrous Sulfate 325 (65 Fe) MG Tablet 1 tablet Orally twice daily Taking Glucose Meter Test(Glucose Blood) - Strip as directed In Vitro Taking Imitrex(SUMAtriptan Succinate) 25 MG Tablet 1 tablet at least 2 hours between doses as needed Orally Twice a day , Notes to Pharmacist: PRNTaking Lancets - Miscellaneous as directed Taking Lisinopril 30 MG Tablet 1 tablet Orally Once a day Taking Metoprolol Tartrate 25 MG Tablet TAKE 1 TABLET BY MOUTH TWICE DAILY WITH FOOD Taking Multiple Vitamins-Iron - Tablet as directed Orally Taking Omeprazole 20 mg Capsule Delayed Release TAKE 2 CAPSULES BY MOUTH DAILY Taking One Touch Ultra Test Strips - Strip 1 test strip via meter once daily DX E11.9 Taking OneTouch Ultra Blue Taking Potassium Chloride ER 20 MEQ Tablet Extended Release 1 tablet with food Orally Once a day Taking Rosuvastatin Calcium 40 MG Tablet 1 tablet Orally Once a day Taking tiZANidine HCl 4 MG Tablet 1 tablet at bedtime as needed Orally Once a day Taking traMADol HCl 50 MG Tablet 1 tablet as needed Orally tid Taking Venlafaxine HCl ER 75 MG Capsule Extended Release 24 Hour take 1 capsule by mouth once daily Taking Vitamin D Taking Warfarin Sodium 5 MG Tablet 1 tablet Orally Once a day Taking Warfarin Sodium 4 MG Tablet take 1 tablet by mouth once daily DiscontinuedIrbesartan 75 MG Tablet 1 tablet Orally Once a day Medication List reviewed and reconciled with the patientDiscontinued Irbesartan 75 MG Tablet 1 tablet Orally Once a day Medication List reviewed and reconciled with the patient * Allergies: P enicillin: hives - AllergySulfa Antibiotics: migraine - Side Effectsno[Allergies Verified] Objective: * Vitals: W t:235.8lbs, Ht: 69 in, BP:150/100mm Hg, BMI:34.82Index, Ht-cm: 175.26 cm, Wt-k.96 kg. Assessment: * Assessment: 1. S ciatic leg pain - M54.30 (Primary) Plan: * Treatment: * Procedure Codes: * Preventive Medicine: Screenings/Counseling: B AR ACTION PLAN Above Normal BMI Follow-up D ietary management education, guidance, and counseling See treatment section of progress note for complete details of management plan. 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
--- OUTSIDE RECORDS SUMMARY | 2025-01-24 07:16 | XMS_ITS ---
Author Organization [facility] in [place] Address [address] [place] [address] Care Team Providers Care Fusion Operator Name Role Phone Jamie Simmons Primary Care Provider [phone] REASON FOR VISIT Call Cardio Encounters Encounter Location Date Provider Diagnosis [facility] [address] [place] [address] 01/24/2025 Jamie Simmons Plan Of Treatment No Information Progress Notes * Jose PARKER EDOB: [birth year] (59 yo M)Acc No.[id number]:01/24/2025 Patient: Kailee LUJANJose :1965 A ge:59 Y S ex:Male Address:[address] [place] [address] [place], [address] * true * Date: Generated for Maylin serna/Nini/eTransmitting on: 0 03/02/2025 10:57 AM EDT
--- OUTSIDE RECORDS SUMMARY | 2025-02-23 07:01 | XMS_ITS ---
Author Organization [facility] in [place] Address [address] [place] [address] Care Team Providers Care Eradicator Name Role Phone Jamie Simmons Primary Care Provider REASON FOR VISIT Coumadin to Lovenox Bridge Encounters Encounter Location Date Provider Diagnosis [facility] [address] [place] [address] 02/23/2025 Jamie Simmons Plan Of Treatment No Information Progress Notes * Jose PARKER EDOB: [birth year] (59 yo M)Acc No.[id number]:02/23/2025 Patient: Kailee LUJAN Jose Paniagua :1965 A ge:59 Y S ex:Male Address:[address] [place] [address], [address] * true * Date: Generated for Maylin serna/Nini/eTransmitting on: 0 03/02/2025 10:57 AM EDT
--- OUTSIDE RECORDS SUMMARY | 2025-03-02 10:57 | XMS_ITS | Clinical Summary ---
Author Organization [facility] Address [address] [facility] [place] [address] Care Team Providers Care Hospitalist Nocturnist Physician Name Role Phone Delon Simmons MD Primary Care Provider [phone] Allergies Active Allergy Reactions Criticality Noted Date Comments Hydrocodone-Acetaminophen Hallucinations 2022 Other Reaction(s): Migraine Penicillins Hives,Other High 01/18/2019 Sulfa Antibiotics Hives High 10/28/2021 Medications albuterol HFA 90 mcg/act inhaler inhale 2 puffs by mouth every 4 hours if needed for shortness of breath 3 Active amLODIPine (Norvasc) 5 MG tablet amlodipine 5 mg tablet take 1 tablet by mouth once daily 2 Active Ascorbic Acid (Vitamin C) 500 MG capsule Active aspirin 81 MG EC tablet aspirin 81 mg tablet,delayed release take 1 tablet by mouth once daily Active cholecalciferol (Vitamin D-3) 25 MCG (1000 UT) tablet Take 1,000 Units by mouth in the morning. Active lisinopril 30 MG tablet lisinopril 30 mg tablet take 1 tablet by mouth once daily 3 Active metFORMIN (Glucophage) 500 MG tablet Take 500 mg by mouth in the morning. Take with meals. 3 Active metoprolol tartrate (Lopressor) 50 MG tablet metoprolol tartrate 50 mg tablet take 1 tablet by mouth twice a day for 90 DAYS 2 Active SUMAtriptan (Imitrex) 100 MG tablet Take 100 mg by mouth. Active venlafaxine XR (Effexor XR) 75 MG 24 hr capsule venlafaxine ER 75 mg capsule,extended release 24 hr take 1 capsule by mouth once daily 2 Active warfarin (Coumadin) 4 MG tablet warfarin 4 mg tablet take 1 tablet by mouth every other day --EXCEPT TAKE 5 MG TABLET ON Friday 8 Active ofloxacin (Ocuflox) 0.3 % ophthalmic solution Administer 1 drop into the right eye in the morning and 1 drop at noon and 1 drop in the evening and 1 drop before bedtime. Active prednisoLONE acetate (Pred-Forte) 1 % ophthalmic suspensionIndic ations:Combined forms of age-related cataract of left eye Administer 1 drop into the left eye in the morning and 1 drop at noon and 1 drop in the evening and 1 drop before bedtime. 5 mL 1 3 Active atorvastatin (Lipitor) 20 MG tablet Take 20 mg by mouth. 3 Active Calcium Carbonate-Vit D-Min (QC Calcium-Magnesi um-Zinc-D3) 333.4-133 MG-UNIT tablet Activ e celecoxib (CeleBREX) 200 MG capsule celecoxib 200 mg capsule TAKE 1 CAPSULE BY MOUTH TWICE DAILY 3 Active ciprofloxacin (Cipro) 500 MG tablet Take 500 mg by mouth in the morning and 500 mg before bedtime. 2 Active docusate sodium (Stool Softener) 100 MG capsule Active Enoxaparin Sodium (Lovenox) 100 MG/ML solution prefilled syringe Inject under the skin. Active isosorbide mononitrate ER (Imdur) 30 MG 24 hr tablet Take 30 mg by mouth in the morning. 2 Active omeprazole (PriLOSEC) [address] capsule omeprazole 20 mg capsule,delayed release TAKE 2 CAPSULES BY MOUTH DAILY 3 Active rosuvastatin (Crestor) 40 MG tablet rosuvastatin 40 mg tablet take 1 tablet by mouth once daily 3 Active rosuvastatin (Crestor) 10 MG tablet Take 10 mg by mouth in the morning. Active Active Problems Problem Noted Date Diagnosed Date Pseudophakia 03/19/2023 History of heart artery stent 03/11/2023 High blood pressure 03/11/2023 History of blood clotting disorder 03/11/2023 Age-related nuclear cataract of both eyes 2022 Anxiety 01/31/2023 Calculus of kidney 01/31/2023 Acute deep vein thrombosis (DVT) of both iliofem oral veins 10/28/2021 Gastroesophageal reflux disease without esophagi tis 10/28/2021 Hyperlipidemia 10/28/2021 Diabetes mellitus type 2 in obese 12/21/2019 Overview (03/11/2023): Last Assessment & Plan: Sending for routine annual labs today in light he remains fasting, will add A1C to labs to assess glycemic management Arteriosclerosis of coronary artery 07/12/2019 Overview (03/11/2023): 03/20/22 CVL FINAL IMPRESSIONS: 1. Moderate 3-vessel coronary artery disease. 2. Patent stent in the mid left anterior descending coronary artery. 3. Moderate, diffuse mid to distal left anterior descending stenosis. 4. Normal global left ventricular systolic function by noninvasive imaging. 5. Severe disease of a small caliber branching 1st diagonal that is jailed by the adjacent left anterior descending stent. Last Assessment & Plan: Coronary artery disease is stable without any concerning symptoms Continue GDMT- ASA, crestor, metoprolol, lisinopril continue risk factor modifications- heart healthy diet, regular exercise as tolerated and continue all medications. Family History Medical History Relation Name Comments Cataracts Mother Relation Name Status Comments Mother Social History Tobacco Use Types Packs/Day Years Used Date Smoking Tobacco: Former Cigarettes Tobacco Cessation:Counseling Given: Not Answered Sex and Gender Information Value Date Recorded Sex Assigned at Not on file Legal Sex Male 6:42 PM EDT Gender Identity Male 03/10/2023 12:52 PM EDT Sexual Orientation Not on file Last Filed Vital Signs Vital Sign Reading Time Taken Comments Blood Pressure 155/79 03/11/2023 1:12 PM EDT Pulse 49 03/11/2023 1:12 PM EDT Temperature - - Respiratory Rate - - Oxygen Saturation - - Inhaled Oxygen Concentration - - Weight - - Height - - Body Mass Index - - Plan of Treatment Upcoming Encounters Date Type Department Care Team (Late st Contact Info) Description 03/08/2025 1:45 PM EDT Office Visit [facility] [address] [place] [phone] Corby Ledezma, DO [address] [place] [address] Insurance MEDICARE Care Teams Hospitalist Nocturnist Physician Relationship Specialty Start Date End Date Delon Simmons MD PCP - General Family Medicine 03/11/23
--- OUTSIDE RECORDS SUMMARY | 2025-03-02 10:57 | XMS_ITS | Encounter Summary ---
Author Organization [facility] Address [address] [place] [address] Care Team Providers Care Buffer Operator Name Role Phone Delon Simmons MD Primary Care Provider [phone] Reason for Visit * Reason Comments Med Refill Encounter Details Date Type Department Care Team (Late st Contact Info) Description 05/03/2023 Refill [facility] Heart at [facility] [address] [place] [address] Shania Sage, SALVATORE [address] [place] [address] Palpitations Social History Tobacco Use Types Packs/Day Years Used Date Smoking Tobacco: Former Cigarettes Smokeless Tobacco: Never Alcohol Use Standard Drinks/Week Comments Yes 0 (1 standard drink = 0.6 oz pur e alcohol) occasional Sex and Gender Information Value Date Recorded Sex Assigned at Not on file Gender Identity Not on file Sexual Orientation Not on file documented as of this encounter Plan of Treatment Upcoming Encounters Date Type Department Care Team (Latest Contact Info) Description 03/03/2025 12:55 PM EDT Hospital Encounter [facility] Heart [facility] Vascular [facility] [address] [place] [address] Raulito Thompson MD [address] [place] [address] [place] (ventricular tachycardia) (CMS/HCC) 03/03/2025 2:55 PM EDT - 03/03/2025 3:55 PM EDT Surgery [facility] [address] [place] [address] Raulito Thompson MD [address] [place] [address] Electrophysiology procedure [57350 (CPT )] 04/05/2025 3:30 PM EDT Office Visit [facility] Heart [facility] [address] [place] [phone] Raulito Thompson MD [address] [place] [address] documented as of this encounter Visit Diagnoses Diagnosis Palpitations VT (ventricular tachycardia) (CMS/HCC)- Primary Paroxysmal ventricular tachycardia [place] (ventricular tachycardia) (CMS/HCC) Paroxysmal ventricular tachycardia documented in this encounter Care Teams Buffer Operator Relationship Specialty Start Date End Date Delon Simmons MD [address] [facility] [address] [place] [address] PCP - General 01/31/23 documented as of this encounter
--- OUTSIDE RECORDS SUMMARY | 2025-03-02 10:57 | XMS_ITS | Clinical Summary ---
Author Organization [facility] Address [address] [place] [id number] Care Team Providers Care Mannequin Mounter Name Role Phone Delon Simmons MD Primary Care Provider [phone] Delon Simmons MD Unavailable [phone] Allergies Active Allergy Reactions Criticality Noted Date Comments Penicillin G Hives High 10/28/2021 Sulfa (Sulfonamide Antibiotics) Hives High 10/01 Medications celecoxib (CELEBREX) 200 mg capsule Take 200 mg by mouth 2 times daily. Active lisinopril (ZESTRIL) 30 mg tablet Take 30 mg by mouth daily. Active metFORMIN (GLUCOPHAGE) 500 mg tablet Take 500 mg by mouth 2 times daily with meals. Active metoprolol succinate ER (TOPROL XL) 50 mg 24 hr tablet Take 50 mg by mouth daily. Active omeprazole (PRILOSEC) 20 mg capsule Take 20 mg by mouth daily. Active rosuvastatin (CRESTOR) 10 mg tablet Take 10 mg by mouth daily. Active SUMAtriptan (IMITREX) 25 mg tablet Take 25 mg by mouth every 2 hours as needed for Migraine. Active venlafaxine (EFFEXOR) 75 mg tablet Take 75 mg by mouth 2 times daily. Active warfarin (COUMADIN) 5 mg tablet Take 1 tab p.o. daily 10/30/2021 Active Social History Tobacco Use Types Packs/Day Years Used Date Smoking Tobacco: Never Smokeless Tobacco: Never Alcohol Use Standard Drinks/Week Comments Yes 0 (1 standard drink = 0.6 oz pur e alcohol) Sex and Gender Information Value Date Recorded Sex Assigned at Not on file Legal Sex Male 2:11 PM EST Gender Identity Not on file Sexual Orientation Not on file Last Filed Vital Signs Vital Sign Reading Time Taken Comments Blood Pressure 132/77 10/30/2021 11:49 AM EST Pulse 89 10/30/2021 11:49 AM EST Temperature 36.3 C (97.3 F) 10/30/2021 11:49 AM EST Respiratory Rate 18 10/30/2021 11:49 AM EST Oxygen Saturation 94% 10/30/2021 11:49 AM EST Inhaled Oxygen Concentration - - Weight 103.4 kg (228 lb) 10/28/2021 2:48 PM EST Height 177.7 cm (5' 9.96 ) 10/28/2021 2:48 PM ES T Body Mass Index 32.75 10/28/2021 2:48 PM EST Plan of Treatment Health Maintenance Due Date Last Done Comments Anxiety Screening 1981 Depression Screening 1981 HIV Screening 1981 Hepatitis C Screening 1981 DTaP,Tdap,Td Vaccine (1 - Tdap) [address] Colonography 2008 Cologuard (FIT-DNA) 2008 Colonoscopy 2008 Colorectal Cancer Screening 2008 Fecal Occult Blood 2008 Prostate Cancer Screening Discussion 2008 Sigmoidoscopy 2008 Pneumococcal Vaccine: 50+ (1 of 1 - PCV) 2013 Shingrix Vaccine (1 of 2) 2013 Covid-19 Vaccine (1 - 2023-2 5 season) 2024 Diabetes Screening 10/30/2024 10/30/2021, 0 10/30/2021, 10/30/2021, Additional history exists Influenza Vaccine (Season Ended) 2025 08/27/20 17, 06/26/2016 RSV Vaccine (1 - 1-dose 75+ series) 2038 Procedures Procedure Name Priority Date/Time Associated Diagnosis Comments BASIC METABOLIC PANEL Routine 10/30/2021 4:06 AM EST from Last 3 Months or Most Recently Relevant to Health Maintenance Results * (ABNORMAL) BASIC METABOLIC PNL (10/30/2021 4:06 AM EST) Sodium 141 133 - 145 mmol/L 10/30/2021 5:16 AM [facility] Potassium 4.6 3.3 - 5.1 mmol/L 10/30/2021 5:16 AM [facility] Chloride 112(H) 99 - 111 mmol/L 10/30/2021 5:16 AM [facility] CO2 25 21 - 32 mmol/L 10/30/2021 5:16 AM [facility] Anion Gap 8.6 6.0 - 18.0 mmol/L 10/30/2021 5:16 AM [facility] BUN 13 6 - 25 mg/dL 10/30/2021 5:16 AM [facility] CREATININE 0.8 0.5 - 1.5 mg/dL 10/30/2021 5:16 AM [facility] Glucose 113(H) 70 - 105 mg/dL 10/30/2021 5:16 AM [facility] Calcium 8.4 8.0 - 10.5 mg/dL 10/30/2021 5:16 AM [facility] eGFR, All Other Races >60 >=60 mL/min 10/30/2021 5:16 AM [facility] eGFR, >60 >=60 mL/min 10/30/2021 5:16 AM [facility] Blood 10/30/2021 4:06 AM EST 10/30/2021 4:26 AM EST us Yaron Balderas MD LABORATORY Final Result [facility] [address] [place] [address] [facility] [address] [place] [address] from Last 3 Months or Most Recently Relevant to Health Maintenance Insurance MEDICARE Care Teams Mannequin Mounter Relationship Specialty Start Date End Date Delon Simmons MD PCP - General Family Medicine 08/09/15 Delon Simmons MD Referring Family Medicine 08/21/21
--- OUTSIDE RECORDS SUMMARY | 2025-03-02 10:58 | XMS_ITS | Encounter Summary ---
Author Organization [facility] Address [address] [place] [address] Care Team Providers Care Visiting Teacher Name Role Phone Delon Simmons MD Primary Care Provider [phone] Encounter Details Date Type Department Care Team (Latest Contact Info) Description 02/23/2025 Travel Social History Tobacco Use Types Packs/Day Years Used Date Smoking Tobacco: Former Cigarettes Smokeless Tobacco: Never Alcohol Use Standard Drinks/Week Comments Yes 0 (1 standard drink = 0.6 oz pur e alcohol) occasional C Utilities Answer Date Recorded In the past 12 months has th e electric, gas, oil, or water [employer] threatened to shut off services in your home? No 11/03/2024 Humiliation, Afraid, Rape, and Kick questionnair e Answer Date Recorded Within the last year, have y ou been afraid of your partner or ex-partner? No 11/03/2024 Emotionally Abused Not on file 11/03/2024 Physically Abused Not on file 11/03/2024 Sexually Abused Not on file 11/03/2024 Overall Financial Resource Strain (CARDIA) Answe r Date Recorded How hard is it for you to pa y for the very basics like food, housing, medical care, and heating? Not hard at all 11/03/2024 Transportation Answer Date Recorded In the past 12 months, has l ack of transportation kept you from medical appointments or from getting medications? No 11/03/2024 Lack of Transportation (Non-Medical) Not on file 11/03/2024 Housing Stability Vital Sign Answer Luiz e Recorded In the last 12 months, was t here a time when you were not able to pay the mortgage or rent on time? No 11/03/2024 Number of Times Moved in the Last Year Not on fi le 11/03/2024 At any time in the past 12 m [facility], were you homeless or living in a fdc (including now)? No 11/03/2024 Hunger Vital Sign Answer Date Recorded Within the past 12 months, y ou worried that your food would run out before you got the money to buy more. Never true 11/03/19 25 Ran Out of Food in the Last Year Not on file 11/03/2024 Sex and Gender Information Value Date Recorded Sex Assigned at Not on file Gender Identity Not on file Sexual Orientation Not on file documented as of this encounter Plan of Treatment Upcoming Encounters Date Type Department Care Team (Latest Contact Info) Description 03/03/2025 12:55 PM EDT Hospital Encounter [facility] [address] [place], [place] [id number] [id number] Raulito Thompson MD [address] [place] [phone] VT (ventricular tachycardia) ([facility]) 03/03/2025 2:55 PM EDT - 03/03/2025 3:55 PM EDT [facility] [address] [place], [place] [id number] [phone] Raulito Thompson MD [address] [place] [phone] Electrophysiology procedure [70222 (CPT )] 04/05/2025 3:30 PM EDT Office Visit [facility] [address] [place] [phone] Raulito Thompson MD [address] [place] [phone] documented as of this encounter Visit Diagnoses Not on filedocumented in this encounter Care Teams Visiting Teacher Relationship Specialty Start Date End Date Delon Simmons MD [address] [facility] [address] [address] PCP - General 01/31/23 documented as of this encounter
--- OUTSIDE RECORDS SUMMARY | 2025-03-02 10:58 | XMS_ITS | Patient Health Record ---
Author Organization [facility] [place] Address [address] [place] [address] Care Team Providers Care Owner Consulting Engineer Name Role Phone Jamie Caballero Primary Care Provider [phone] NOE CABALLERO Unavailable [phone] Xochilt Garcia Unavailable [phone] Allergies Allergen (clinical drug ingredient) Drug/Non Drug Allergy documented on EMR Reaction Allergy Type Onset Date Status Penicillin (uncoded) hives Allergy Active Substance with sulfonamide structure and antibacterial mechanism of action (substance) Sulfa Antibiotics migraine Drug Allergy Active Results Component Value Reference Range Notes XR ribs LT 2V Reviewed date:12/15/2024 05:36:48 PM Interpretation: Performing Lab: Notes/Report: Source Facility: [place] [address] [place] [address] XRay Report Signed Patient: JOSE PARKER MR#: [id number] : 1965 Acct:[id number] Age/Sex: 59 / M ADM Date: 12/15/24 Loc: RAD Attending Dr: Noe Caballero M.D. Ordering Physician: Noe Caballero M.D. Date of Service: 12/15/24 Procedure(s): XR ribs LT 2V Accession Number(s): [id number] cc: Noe Caballero M.D. [place] [id number] Patient Name: JOSE PARKER MRN: [id number] date: 1965 Sex: M Assigned Patient Location: RAD Current Patient Location: RAD Accession/Order Number: [id number] Exam Date: 12/15/2024 12:41 Report Date: 12/15/2024 12:45 At the request of: NOE CABALLERO MD Procedure: XR ribs LT 2V Chest 2 views left RIBS 6views CLINICAL HISTORY: Rib contusion COMPARISON: Chest 11/03/2024 FINDINGS: Low lung wires. Heart appears normal in size. No consolidation pneumothorax pleural effusion or free air. No displaced rib fracture is seen. XR/XR ribs LT 2V IMPRESSION: NO ACUTE CARDIOPULMONARY ABNORMALITY. Impression dictated by: Gianni Herrera Jr., D.O.12/15/2024 12:45 PM Dictation Location: [place] [address] Electronically authenticated by: [id number] Y Date: 12/15/2024 12:45 Dictated By: Gianni Herrera M.D. Signed By: 12/15/24 1247 DD/ 1245 TD/TT: [employer] Supervisor: [place] [address] XRay Report Signed Patient: TIP PARKER MR#: [id number] : 1965 Acct:[id number] Age/Sex: 59 / M ADM Date: 12/15/24 Loc: RAD Attending Dr: Shubham Caballero M.D. Ordering Physician: Noe Caballero M.D. Date of Service: 12/15/24 Procedure(s): XR rib s LT 2V Accession Number(s): [id number] cc: Noe Caballero M.D. [place] [address] Patient Name: JOSE PARKER MRN: [id number] date: 1965 Sex: M Assigned Patient Location: [facility] Current Patient Loca tion: RAD Accession/Order Numb er: [id number] Exam Date: 12/15/2024 12:41 Report Date: 12/15/2024 12:45 At the request of: NOE CABALLERO MD Procedure: XR ribs LT 2V Chest 2 views left R IBS 6views CLINICAL HISTORY: Ri b contusion COMPARISON: Chest 11/03/2024 FINDINGS: Low lung wires. Hear t appears normal in size. No consolidation pneumothorax pleural effusion or free air. No displaced rib fracture is seen. X R/XR ribs LT 2V IMPRESSION: NO ACUTE CARDIOPULMO NARY ABNORMALITY. Impression dictated by: Gianni Herrera Jr., DKennethOKenneth12/15/2024 12:45 PM Dictation Location: [place] [address] Electronically authenticated by: [id number] Y Date: 12/15/2024 12:45 Dictated By: Gianni Herrera M.D. Signed By: 12/15/24 1247 DD/ 1245 TD/TT: [employer] Supervisor: Prothrombin Time INR Reviewed date:03/16/2024 06:05:14 PM Interpretation: Performing Lab: Notes/Report: [facility] , Prothrombin Time 27.2 9.0-11.6 sec INR 2.85 2.5-3.5 RECURRENT THROMBOSIS 2.0-3.0 CONDITIONS NOT LISTED BELOW 2.5-3.5 FOR PROSTHETIC HEART VALVE REPLACEMENT DESIRED INR: Performing Lab: see note ML - [facility] LB PSA Reviewed date:03/16/2024 06:05:14 PM Interpretation: Performing Lab: Notes/Report: [facility] , Prostate Specific Antigen Dx 2.03 <=4.00 ng/mL Performing Lab: see note - [facility] LB XR hip JOSIAS Reviewed date:03/17/2024 07:06:01 PM Interpretation: Performing Lab: Notes/Report: Source Facility: [facility] [place] [address] [place] [address] XRay Report Signed Patient: JOSE PARKER MR#: [id number] : 1965 Acct:[id number] Age/Sex: 59 / M ADM Date: 03/16/24 Loc: LAB Attending Dr: Noe Caballero M.D. Ordering Physician: Noe Caballero M.D. Date of Service: 03/16/24 Procedure(s): XR hip JOSIAS Accession Number(s): [id number] cc: Noe Caballero M.D. [address] [id number] Patient Name: JOSE PARKER MRN: [id number] date: 1965 Sex: M Assigned Patient Location: LAB Current Patient Location: LAB Accession/Order Number: [id number] Exam Date: 03/16/2024 11:45 Report Date: 03/17/2024 12:54 At the request of: NOE CABALLERO Procedure: XR hip JOSIAS EXAMINATION: XR hip JOSIAS HISTORY: Hip Pain COMPARISON: No relevant comparison available. FINDINGS: RIGHT FINDINGS: BONES: No significant arthropathy or acute abnormality. SOFT TISSUES: No visible soft tissue swelling. OTHER: Negative. LEFT FINDINGS: BONES: No significant arthropathy or acute abnormality. SOFT TISSUES: No visible soft tissue swelling. OTHER: Negative. XR/XR hip JOSIAS IMPRESSION: RIGHT CONCLUSION: No acute bone abnormality. No significant degenerative joint disease. LEFT CONCLUSION: No acute bone abnormality. No significant degenerative joint disease. Electronically authenticated by: SHRAVAN MILLAN Date: 03/17/2024 12:54 Dictated By: Shravan Millan M.D. Signed By: 03/17/24 1256 DD/ 1254 TD/TT: [employer] Supervisor: [place] [address] XRay Report Signed Patient: TIP PARKER MR#: [id number] : 1965 Acct:[id number] Age/Sex: 59 / M ADM Date: 03/16/24 Loc: LAB Attending Dr: Shubham Caballero M.D. Ordering Physician: Noe Caballero M.D. Date of Service: 03/16/24 Procedure(s): XR hip JOSIAS Accession Number(s): [id number] cc: Noe Caballero M.D. [address] [id number] Patient Name: JOSE PARKER MRN: [id number] date: 1965 Sex: M Assigned Patient Location: LAB Current Patient Loca tion: LAB Accession/Order Numb er: [id number] Exam Date: 03/16/2024 11:45 Report Date: 03/17/2024 12:54 At the request of: NOE CABALLERO Procedure: XR hip JOSIAS EXAMINATION: XR hip JOSIAS HISTORY: Hip Pain COMPARISON: No relev ant comparison available. FINDINGS: RIGHT FINDINGS: BONES: No significan t arthropathy or acute abnormality. SOFT TISSUES: No vis ible soft tissue swelling. OTHER: Negative. LEFT FINDINGS: BONES: No significan t arthropathy or acute abnormality. SOFT TISSUES: No vis ible soft tissue swelling. OTHER: Negative. X R/XR hip JOSIAS IMPRESSION: RIGHT CONCLUSION: No acute bone abnormality. No significant degenerative joint disease. LEFT CONCLUSION: No acute bone abnormality. No significant degenerative joint disease. Electronically authenticated by: SHRAVAN MILLAN Date: 03/17/2024 12:54 Dictated By: Shravan Millan M.D. Signed By: 03/17/24 1256 DD/ 1254 TD/TT: [employer] Supervisor: PROF Peters(COMP METB) Reviewed date:03/18/2024 04:51:52 PM Interpretation: Performing Lab: Notes/Report: [facility] , Sodium 140 136-145 mmol/L Potassium 5.6 3.5-5.1 mmol/L Chloride 103 98-107 mmol/L Carbon Dioxide 28.3 21.0-32.0 mmol/L Anion Gap 14.3 Glucose 165 74-106 mg/dL Blood Urea Nitrogen 24.0 7.0-18.0 mg/dL Creatinine 1.55 0.70-1.30 mg/dL Estimated GFR ( Rosamaria 56 >=60 Estimated GFR (Non- Sosa 46 >=60 BUN Creatinine Ratio 15.5 Calcium 8.8 8.5-10.1 mg/dL Bilirubin Total 0.4 0.2-1.0 mg/dL Aspartate Amino Transferase 20 15-37 U/L Alanine Aminotransferase 31 16-63 U/L Alkaline Phosphatase 62 46-116 U/L Total Protein 7.6 6.4-8.2 g/dL Albumin Level 3.5 3.4-5.0 g/dL Globulin 4.1 Albumin Globulin Ratio 0.9 Performing Lab: see note ML - [facility] LB ECG 12 lead Reviewed date:11/07/2024 11:14:24 AM Interpretation: Performing Lab: Notes/Report: Source Facility: [facility] [place] [address] [place] [address] Electrocardiograph Report Signed Patient: JOSE PARKER MR#: [id number] : 1965 Acct:[id number] Age/Sex: 59 / M ADM Date: 11/03/24 Loc: ER Attending Dr: Ordering Physician: Angi Covington D.O. 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 Signed By: 11/05/24 0627 DD/ 1519 TD/TT: [employer] Supervisor: [place] [address] Electrocardiograph Report Signed Patient: TIP PARKER MR#: [id number] : 1965 Acct:[id number] Age/Sex: 59 / M ADM Date: 11/03/24 Loc: ER Attending Dr: Ordering Physician: Angi Covington D.O. 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 Signed By: 11/05/24 0627 DD/ 1519 TD/TT: [employer] Supervisor: XR chest 2V Reviewed date:12/15/2024 05:36:48 PM Interpretation: Performing Lab: Notes/Report: Source Facility: [place] [address] XRay Report Signed Patient: JOSE PARKER MR#: [id number] : 1965 Acct:[id number] Age/Sex: 59 / M ADM Date: 12/15/24 Loc: [facility] Attending Dr: Noe Caballero M.D. Ordering Physician: Noe Caballero M.D. Date of Service: 12/15/24 Procedure(s): XR chest 2V Accession Number(s): [id number] cc: Noe Caballero M.D. [place] [id number] Patient Name: JOSE PARKER MRN: [id number] date: 1965 Sex: M Assigned Patient Location: [facility] Current Patient Location: [facility] Accession/Order Number: [id number] Exam Date: 12/15/2024 12:41 Report Date: 12/15/2024 12:45 At the request of: NOE CABALLERO MD Procedure: XR ribs LT 2V Chest 2 views left RIBS 6views CLINICAL HISTORY: Rib contusion COMPARISON: Chest 11/03/2024 FINDINGS: Low lung wires. Heart appears normal in size. No consolidation pneumothorax pleural effusion or free air. No displaced rib fracture is seen. XR/XR chest 2V IMPRESSION: NO ACUTE CARDIOPULMONARY ABNORMALITY. Impression dictated by: Gianni Herrera Jr., D.O.12/15/2024 12:45 PM Dictation Location: [place] [address] Electronically authenticated by: [id number] Y Date: 12/15/2024 12:45 Dictated By: Gianni Herrera M.D. Signed By: 12/15/24 1247 DD/ 124 TD/TT: [employer] P[employer] Supervisor: [place] [address] XRay Report Signed Patient: TIP PARKER MR#: [id number] : 1965 Acct:[id number] Age/Sex: 59 / M ADM Date: 12/15/24 Loc: RAD Attending Dr: Shubham Caballero M.D. Ordering Physician: Noe Caballero M.D. Date of Service: 12/15/24 Procedure(s): XR chest 2V Accession Number(s): [id number] cc: Noe Caballero M.D. [place] [id number] Patient Name: JOSE PARKER MRN: [id number] date: 1965 Sex: M Assigned Patient Location: [facility] Current Patient Loca tion: RAD Accession/Order Numb er: [id number] Exam Date: 12/15/2024 12:41 Report Date: 12/15/2024 12:45 At the request of: NOE CABALLERO MD Procedure: XR ribs LT 2V Chest 2 views left R IBS 6views CLINICAL HISTORY: Ri b contusion COMPARISON: Chest 11/03/2024 FINDINGS: Low lung wires. Hear t appears normal in size. No consolidation pneumothorax pleural effusion or free air. No displaced rib fracture is seen. X R/XR chest 2V IMPRESSION: NO ACUTE CARDIOPULMO NARY ABNORMALITY. Impression dictated by: Gianni Herrera Jr., D.O.12/15/2024 12:45 PM Dictation Location: [place] [address] Electronically authenticated by: [id number] Y Date: 12/15/2024 12:45 Dictated By: Gianni Herrera M.D. Signed By: 12/15/24 1247 DD/ 44 TD/TT: [employer] P[employer] Supervisor: XR chest 1V Reviewed date:11/03/2024 05:03:34 PM Interpretation: Performing Lab: Notes/Report: Source Facility: [place] [address] XRay Report Signed Patient: JOSE PARKER MR#: [id number] : 1965 Acct:[id number] Age/Sex: 59 / M ADM Date: 11/03/24 Loc: ER Attending Dr: Ordering Physician: Angi Covington D.O. Date of Service: 11/03/24 Procedure(s): XR chest 1V Accession Number(s): [id number] cc: Noe Caballero M.D.; Angi Covington D.O. [place] [address] Patient Name: JOSE PARKER MRN: [id number] date: 1965 Sex: M Assigned Patient Location: ER Current Patient Location: ER Accession/Order Number: [id number] Exam Date: 11/03/2024 15:28 Report Date: 11/03/2024 15:42 At the request of: ANGI COVINGTON Procedure: XR chest 1V EXAM: XR chest 1V HISTORY: . cp . COMPARISON: 10/02/2021 TECHNIQUE: Single view of the chest FINDINGS: Heart and vascularity are unremarkable. Lungs are free of focal infiltrates. Grossly no bony abnormality is appreciated. EKG leads overlie the chest. XR/XR chest 1V IMPRESSION: No acute heart or lung disease identified. Electronically authenticated by: EFREM PRIETO Date: 11/03/2024 15:42 Dictated By: Efrem Prieto M.D. Signed By: 11/03/24 1544 DD/ 154 TD/TT: [employer] Supervisor: The [place] [id number] XRay Report Signed Patient: TIP PARKER MR#: [id number] : 1965 Acct:[id number] Age/Sex: 59 / M ADM Date: 11/03/24 Loc: ER Attending Dr: Ordering Physician: Angi Covington D.O. Date of Service: 11/03/24 Procedure(s): XR chest 1V Accession Number(s): [id number] cc: Noe Caballero M.D. ; Angi Covington D.O. [place] [address] Patient Name: JOSE PARKER MRN: [id number] date: 1965 Sex: M Assigned Patient Location: ER Current Patient Loca tion: ER Accession/Order Numb er: [id number] Exam Date: 11/03/2024 15:28 Report Date: 11/03/2024 15:42 At the request of: ANGI COVINGTON Procedure: XR chest 1V EXAM: XR chest 1V HISTORY: . cp . COMPARISON: 10/02/2021 TECHNIQUE: Single vi ew of the chest FINDINGS: Heart and vascularity are unremarkable. Lungs are free of focal infiltrates. Grossly no bony abnormality is appreciated. EKG leads overlie th e chest. X R/XR chest 1V IMPRESSION: No acute heart or ayse ng disease identified. Electronically authenticated by: EFREM PRIETO Date: 11/03/2024 15:42 Dictated By: Efrem Prieto M.D. Signed By: 11/03/24 1544 DD/ 1542 TD/TT: [employer] Supervisor: CBC AUTO DIFF Reviewed date:11/03/2024 05:03:34 PM Interpretation: Performing Lab: Notes/Report: [facility] , White Blood Count 9.1 4.0-11.0 10 3/uL Red Blood Count 5.73 4.70-6.10 10 6/uL Hemoglobin 12.3 14.0-18.0 g/dL Hematocrit 41.6 42.0-54.0 % Mean Corpuscular Volume 72.6 80.0-94.0 fL Mean Corpuscular Hemoglobin 21.5 25.9-34.0 pg Mean Corpuscular HGB Conc 29.6 29.9-35.2 g/dL Red Cell Distribution Width 17.8 11.0-15.0 % Platelet Count 377 150-450 10 3/uL Mean Platelet Volume 10.4 9.5-13.5 fL Neutrophils Percent Auto 63.9 43.0-75.0 % Lymphocytes Percent Auto 25.2 20.5-60.0 % Monocytes Percent Auto 8.1 1.7-12.0 % Eosinophils Percent Auto 1.7 0.9-7.0 % Basophils Percent Auto 0.8 0.2-2.0 % Immature Granulocytes Pct Auto 0.3 0.0-0.5 % Neutrophils Absolute Auto 5.8 1.4-6.5 10 3/uL Lymphocytes Absolute Auto 2.3 1.2-3.8 10 3/uL Monocytes Absolute Auto 0.7 0.3-0.8 10 3/uL Eosinophils Absolute Auto 0.2 0.0-0.7 10 3/uL Basophils Absolute Auto 0.1 0.0-0.1 10 3/uL Immature Granulocytes Abs Auto 0.03 0.00-0.03 10 3/uL Performing Lab: see note - [facility] Prothrombin Time INR Reviewed date:08/03/2024 02:23:37 PM Interpretation: Performing Lab: Notes/Report: [facility] , Prothrombin Time 24.7 9.0-11.6 sec INR 2.56 2.5-3.5 FOR PROSTHETIC HEART VALVE REPLACEMENT DESIRED INR: 2.0-3.0 CONDITIONS NOT LISTED BELOW 2.5-3.5 RECURRENT THROMBOSIS Performing Lab: see note ML - [facility] LB Prothrombin Time INR Reviewed date:05/19/2024 04:49:06 PM Interpretation: Performing Lab: Notes/Report: [facility] , Prothrombin Time 34.1 9.0-11.6 sec INR 3.66 2.0-3.0 CONDITIONS NOT LISTED BELOW DESIRED INR: 2.5-3.5 FOR PROSTHETIC HEART VALVE REPLACEMENT 2.5-3.5 RECURRENT THROMBOSIS Performing Lab: see note [facility] XR lumbar spine 2-3V Reviewed date:03/17/2024 07:06:01 PM Interpretation: Performing Lab: Notes/Report: Source Facility: [place] [address] [place] [address] XRay Report Signed Patient: JOSE PARKER MR#: [id number] : 1965 Acct:[id number] Age/Sex: 59 / M ADM Date: 03/16/24 Loc: LAB Attending Dr: Noe Caballero M.D. Ordering Physician: Noe Caballero M.D. Date of Service: 03/16/24 Procedure(s): XR lumbar spine 2-3V Accession Number(s): [id number] cc: Noe Caballero M.D. [place] [address] Patient Name: JOSE PARKER MRN: [id number] date: 1965 Sex: M Assigned Patient Location: LAB Current Patient Location: Accession/Order Number: [id number] Exam Date: 03/16/2024 11:45 Report Date: 03/17/2024 12:16 At the request of: NOE CABALLERO Procedure: XR lumbar spine 2-3V EXAMINATION: XR lumbar spine 2-3V HISTORY: Hip Pain ; low back pain radiating into hips and legs COMPARISON: No relevant comparison available. FINDINGS: BONES: Partial lumbarization of S1. No fracture or listhesis. DISC SPACES: Multilevel mild narrowing. PARASPINOUS: Negative. No paraspinous abnormality is seen. OTHER: Filter in IVC. XR/XR lumbar spine 2-3V IMPRESSION: 1. Multilevel mild degenerative changes. Electronically authenticated by: SHRAVAN MILLAN Date: 03/17/2024 12:16 Dictated By: Shravan Millan M.D. Signed By: 03/17/24 1218 DD/ 1216 TD/TT: [employer] P[employer] Supervisor: [place] [address] XRay Report Signed Patient: TIP PARKER MR#: [id number] : 1965 Acct:[id number] Age/Sex: 59 / M ADM Date: 03/16/24 Loc: LAB Attending Dr: Shubham Caballero M.D. Ordering Physician: Noe Caballero M.D. Date of Service: 03/16/24 Procedure(s): XR lum bar spine 2-3V Accession Number(s): [id number] cc: Noe Caballero M.D. [facility] [place] [address] Patient Name: JOSE PARKER MRN: [id number] date: 1965 Sex: M Assigned Patient Location: LAB Current Patient Location: Accession/Order Numb er: [id number] Exam Date: 03/16/2024 11:45 Report Date: 03/17/2024 12:16 At the request of: NOE CABALLERO Procedure: XR lumbar spine 2-3V EXAMINATION: XR lumb ar spine 2-3V HISTORY: Hip Pain ; low back pain radiating into hips and legs COMPARISON: No relev ant comparison available. FINDINGS: BONES: Partial lumbarization of S1. No fracture or listhesis. DISC SPACES: Multile dante mild narrowing. PARASPINOUS: Negativ e. No paraspinous abnormality is seen. OTHER: Filter in IVC. X R/XR lumbar spine 2-3V IMPRESSION: 1. Multilevel mild degenerative changes. Electronically authenticated by: SHRAVAN MILLAN Date: 03/17/2024 12:16 Dictated By: Shravan Millan M.D. Signed By: 03/17/24 1218 DD/ 1216 TD/TT: [employer] Supervisor: TSH Reviewed date:03/16/2024 06:05:14 PM Interpretation: Performing Lab: Notes/Report: [facility] , Thyroid Stimulating Hormone 3.715 0.358-3.740 uIU/mL Performing Lab: see note - [facility] LB T4 Reviewed date:03/16/2024 06:05:14 PM Interpretation: Performing Lab: Notes/Report: [facility] , T4 Thyroxine 6.30 4.50-12.10 ug/dL Performing Lab: see note - [facility] LB PROF 14(COMP METB) Reviewed date:03/16/2024 06:05:14 PM Interpretation: Performing Lab: Notes/Report: [facility] , Sodium 140 136-145 mmol/L Potassium 4.6 3.5-5.1 mmol/L Chloride 104 98-107 mmol/L Carbon Dioxide 24.8 21.0-32.0 mmol/L Anion Gap 15.8 Glucose 151 74-106 mg/dL Blood Urea Nitrogen 19.0 7.0-18.0 mg/dL Creatinine 1.41 0.70-1.30 mg/dL Estimated GFR ( Rosamaria >60 >=60 Estimated GFR (Non- Sosa 51 >=60 BUN Creatinine Ratio 13.5 Calcium 8.6 8.5-10.1 mg/dL Bilirubin Total 0.4 0.2-1.0 mg/dL Aspartate Amino Transferase 16 15-37 U/L Alanine Aminotransferase 29 16-63 U/L Alkaline Phosphatase 59 46-116 U/L Total Protein 7.8 6.4-8.2 g/dL Albumin Level 3.6 3.4-5.0 g/dL Globulin 4.2 Albumin Globulin Ratio 0.9 Performing Lab: see note ML - [facility] LB LIPID PROFILE Reviewed date:03/16/2024 06:05:14 PM Interpretation: Performing Lab: Notes/Report: [facility] , Triglycerides 193 <=150 mg/dL Cholesterol 169 <=200 mg/dL HDL Cholesterol 48 40-60 mg/dL > or =60 mg/dl - LOW CARDIOVASCULAR RISK <40 mg/dl - HIGH CARDIOVASCULAR RISK LDL Cholesterol Calculated 83.0 100-129 mg/dl NEAR OR ABOVE OPTIMAL <100 mg/dl OPTIMAL 160-189 mg/dl HIGH 130-159 mg/dl BORDERLINE HIGH >190 mg/dl VERY HIGH VLDL CHOLESTEROL 38.6 Chol HDL Ratio 3.5 4.4 - 7.1 AVERAGE RISK 3.3 - 4.4 LOW RISK >11.0 HIGH RISK 7.1 - 11.0 MODERATE RISK Performing Lab: see note ML - [facility] LB GLYCOHEMOGLOBIN A1C Reviewed date:03/16/2024 06:05:14 PM Interpretation: Performing Lab: Notes/Report: [facility] , Glycohemoglobin A1C 7.2 4.5-6.2 % ACTION SUGGESTED > 7.0 ADA THERAPEUTIC TARGET < 7.0 ADA RECOMMENDED LIMIT 4.0 - 6.0 Estimated Average Glucose 160 Performing Lab: see note ML - [facility] LB FREE T3 Reviewed date:03/16/2024 06:05:14 PM Interpretation: Performing Lab: Notes/Report: [facility] , Free T3 2.64 2.18-3.98 pg/mL Performing Lab: see note ML - [facility] LB CBC AUTO DIFF Reviewed date:03/16/2024 06:05:14 PM Interpretation: Performing Lab: Notes/Report: [facility] , White Blood Count 9.9 4.0-11.0 10 3/uL Red Blood Count 5.96 4.70-6.10 10 6/uL Hemoglobin 13.0 14.0-18.0 g/dL Hematocrit 43.6 42.0-54.0 % Mean Corpuscular Volume 73.2 80.0-94.0 fL Mean Corpuscular Hemoglobin 21.8 25.9-34.0 pg Mean Corpuscular HGB Conc 29.8 29.9-35.2 g/dL Red Cell Distribution Width 20.2 11.0-15.0 % Platelet Count 377 150-450 10 3/uL Mean Platelet Volume 9.7 9.5-13.5 fL Neutrophils Percent Auto 66.0 43.0-75.0 % Lymphocytes Percent Auto 23.6 20.5-60.0 % Monocytes Percent Auto 8.0 1.7-12.0 % Eosinophils Percent Auto 1.4 0.9-7.0 % Basophils Percent Auto 0.7 0.2-2.0 % Immature Granulocytes Pct Auto 0.3 0.0-0.5 % Neutrophils Absolute Auto 6.5 1.4-6.5 10 3/uL Lymphocytes Absolute Auto 2.3 1.2-3.8 10 3/uL Monocytes Absolute Auto 0.8 0.3-0.8 10 3/uL Eosinophils Absolute Auto 0.1 0.0-0.7 10 3/uL Basophils Absolute Auto 0.1 0.0-0.1 10 3/uL Immature Granulocytes Abs Auto 0.03 0.00-0.03 10 3/uL Performing Lab: see note ML - [facility] LB Troponin I High Sensitivity Reviewed date:11/03/2024 05:03:34 PM Interpretation: Performing Lab: Notes/Report: [facility] , Troponin I High Sensitivity 47.0 4.0-76.1 pg/mL USED IN ISOLATION BUT SHOULD BE INTERPRETED IN CONJUNCTION DIAGNOSIS. REFERENCE LIMIT (URL) OF TROPONIN, DEFINED THE 99TH NOTE: HIGH-SENSITIVITY TROPONIN ASSAY IS NOT INTENDED TO BE 99TH PERCENTILE = 76.2 PG/ML HAS BEEN CONFIRMED THE DECISION THRESHOLD FOR [place] UNIVERSAL DEFINITION OF MYOCARDIAL INFARCTION. THE UPPER WITH OTHER DIAGNOSTIC AND CLINICAL INFORMATION. CUT-OFF POINTS HAVE BEEN ESTABLISHED BASED ON THE FOURTH PERCENTILE OF cTnI DISTRIBUTION IN A REFERENCE POPULATION, Performing Lab: see note ML - [facility] LB PROF 14(COMP METB) Reviewed date:11/03/2024 05:03:34 PM Interpretation: Performing Lab: Notes/Report: [facility] , Sodium 140 136-145 mmol/L Potassium 4.3 3.5-5.1 mmol/L Chloride 104 98-107 mmol/L Carbon Dioxide 25.7 21.0-32.0 mmol/L Anion Gap 14.6 Glucose 135 74-106 mg/dL Blood Urea Nitrogen 25.0 7.0-18.0 mg/dL Creatinine 1.58 0.70-1.30 mg/dL Estimated GFR ( Rosamaria 54 >=60 mL/min/1.73m 2 Estimated GFR (Non- Sosa 45 >=60 mL/min/1.73m 2 BUN Creatinine Ratio 15.8 Calcium 8.9 8.5-10.1 mg/dL Bilirubin Total 0.5 0.2-1.0 mg/dL Aspartate Amino Transferase 18 15-37 U/L Alanine Aminotransferase 23 16-63 U/L Alkaline Phosphatase 75 46-116 U/L Total Protein 7.6 6.4-8.2 g/dL Albumin Level 3.6 3.4-5.0 g/dL Globulin 4.0 Albumin Globulin Ratio 0.9 Performing Lab: see note ML - [facility] Reason For Referral No Information Medications Medication SIG (Take, Route, Frequency, Duration) Notes Start Date End Date Status Albuterol Sulfate HFA 108 (90 Base) MCG/ACT 2 puffs as needed for SOB Inhalation every 4 hrs for 30 02/25/2023 Active Celecoxib 200 MG take 1 capsule by [facility] twice a day for 30 Active Metoprolol Tartrate 25 MG TAKE 1 TABLET BY MOUTH TWICE DAILY WITH FOOD for 30 days Active Warfarin Sodium 5 MG 1 tablet Orally Onc e a day for 30 days 02/13/2023 Active Multiple Vitamins-Iron - as directed Orally Active Warfarin Sodium 4 MG take 1 tablet by mo coh once daily for 30 Active Lancets - as directed Active Venlafaxine HCl ER 75 MG take 1 capsule by mouth once daily for 90 Active Lisinopril 30 MG 1 tablet Orally Once a day for 30 days 12/01/2024 Active Vitamin D Active Omeprazole 20 mg TAKE 2 CAPSULES BY M OUTH DAILY for 90 Active Imitrex 25 MG 1 tablet at least 2 hours between doses as needed Orally Twice a day for 30 days PRN Active tiZANidine HCl 4 MG 1 tablet at bedtime as needed Orally Once a day for 30 days 07/23/2024 Active traMADol HCl 50 MG 1 tablet as needed O rally tid for 7 days 12/15/2024 Active Ferrous Sulfate 325 (65 Fe) MG 1 tablet Orally twice daily for 30 days 03/17/2024 Active Potassium Chloride ER 20 MEQ 1 tablet with food Orally Once a day Active Glucose Meter Test - as directed In Vitro Active Rosuvastatin Calcium 40 MG 1 tablet Oral ly Once a day Active amLODIPine Besylate 5 MG 1 tablet Orally Once a day for 30 days 01/24/2025 Active One Touch Ultra Test Strips - 1 test strip via meter once daily DX E11.9 for 90 days 12/16/2023 Active Coumadin 3 MG 1 tablet Orally Once a day for 30 day(s) Active OneTouch Ultra Blue Active Social History Tobacco Use: Social History Observation Description Date Details (start date - stop date) Former Smoker NA - NA Tobacco Use/Smoking Question Answer Notes Patient is a former smoker Alcohol Screen (Audit-C) Question Answer Notes Did you have a drink contain ing alcohol in the past year? Yes How often did you have 6 or more drinks on one occasion in the past year? Never (0 point) How many drinks did you have on a typical day when you were drinking in the past year? 1 or 2 drinks (0 point) How often did you have a dri nk containing alcohol in the past year? Monthly (2 points) Points 2 Interpretation Negative AUDIT-C (Standard) Question Answer Notes Did you have a drink containing alcohol in the p ast year? No Points 0 Interpretation Negative Problems Problem Type SNOMED Code ICD Code Onset Dates Problem Status W/U Status Risk Notes Problem [id number] Obesity, unspecified (E66.9) Active confirmed Problem Lateral epicondylitis (842863808) Lateral epicondylitis, left elbow (M77.12) Active confirmed Problem Calculus of kidney (22778800) Calculus of kidney (N20.0) Active confirmed Problem Long-term current use of anticoagulant (806745834) detention (current) use of 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 (Z79.01) Active confirmed Problem Migraine variant with headache (disorder) (061207195) Migraine headache (G43.909) Active confirmed Problem Hyperlipidemia (17457088) Hyperlipidemia (E78.5) Active confirmed Problem Hypertension (84165885) Hypertension (I10) Active confirmed Problem Rheumatoid arthritis (75580089) Rheumatoid arthritis (M06.9) Active confirmed Problem Gastroesophageal reflux disease (418429088) GERD (gastroesophageal reflux disease) (K21.9) Active confirmed Problem Hypothyroidism (54072840) Hypothyroidism (E03.9) Active confirmed Problem Anxiety (71451866) Anxiety (F41.9) Active confi rmed Problem Coronary artery disease (06845778) Coronary artery disease (I25.10) Active confirmed Problem Dyspnea on exertion (04654276) [place]O (dyspnea on exertion) (R06.09) Active confirmed Problem Arthritis (2564678) Arthritis (M19.90) Active confirmed Problem Anemia (334110140) Anemia (D64.9) Active confir med Problem Hip pain (65541263) Hip pain (M25.559) Active confirmed Problem Vitamin D deficiency (20559244) Vitamin D deficiency (E55.9) Active confirmed Problem Degeneration of cervical intervertebral disc (97442833) Degenerative disc disease, cervical (M50.30) Active confirmed Problem Lumbar radiculopathy (932811946) Lumbar radiculopathy (M54.16) Active confirmed Problem Arthralgia (02622112) Arthralgia (M25.50) Active confirmed Problem History of DVT (deep vein thrombosis) (335229850) History of DVT (deep vein thrombosis) (Z86.718) Active confirmed 1998 Problem Constipation (81913052) Constipation (K59.00) Active confirmed Problem 493755591 Lumbar disc herniation (M51.26) Active confirmed Problem Edema (161130390) Edema leg (R60.0) Active conf irmed Problem Degeneration of lumbar intervertebral disc (17831028) Degenerative disc disease, lumbar (M51.36) Active confirmed Problem Well adult (645243687) Well adult (Z00.00) Active confirmed Problem Cervical lymphadenopathy (158378110) Cervical lymphadenopathy (R59.0) Active confirmed Problem Sciatica (66046614) Sciatic leg pain (M54.30) Active confirmed Problem Skin sensation disturbance (39215736) Paresthesias/numb ness (R20.9) Active confirmed Problem Hemorrhoid (40595638) Hemorrhoid (K64.9) Active confirmed Problem Type II diabetes mellitus well controlled (219582502) Diabetes mellitus type 2, controlled (E11.9) Active confirmed Problem Ex-tobacco user (finding) (644386714) History of tobacco abuse (Z87.891) Active confirmed Quit 1988 Problem Labyrinthitis (51928326) Labyrinthitis (H83.09) Active confirmed Problem Hernia of abdominal cavity (disorder) (60337578) Hernia, abdominal (K46.9) Active confirmed Problem Lupus anticoagulant disorder (81269683) Lupus anticoagulant disorder (D68.62) Active confirmed Problem Type II diabetes mellitus without complication (302280319) Diet-controlled diabetes mellitus (E11.9) Active confirmed Problem Acquired renal cystic disease (002173193) Renal cyst, acquired, right (N28.1) Active confirmed Problem Antiphospholipid syndrome (65991590) Anti-cardiolipin antibody syndrome (D68.61) Active confirmed Problem Arthralgia of temporomandibular joint (84270131) TMJ syndrome (M26.629) Active confirmed Problem Bruising (047276885) Bruising (T14.8XXA) Active confirmed Problem Recurrent thrombus (I82.91) Active confirmed Problem COVID-19 (566553282) COVID-19 (U07.1) Active confirmed Problem History of COVID-19 (812357954198588640 ) History of COVID-19 (Z86.16) Active confirmed 06/2021 Vital Signs Blood pressure diastolic 100 mm Hg 01/24/2025 Height 69 in 01/24/2025 Blood pressure systolic 150 mm Hg 01/24/2025 Weight 235.8 lbs 01/24/2025 BMI 34.82 kg/m2 01/24/2025 Encounters Encounter Location Date Provider Diagnosis [facility] [address] [place] [address] 12/13/2024 Jamie jud [facility] [address] [place] [place] [address] 12/21/2024 Jamie jud [facility] [address] [place] [address] 01/10/2025 Jamie Caballero [facility] [address] [place] [place] [address] 01/17/2025 Jamie jud [facility] [address] [place] [place] [address] 01/18/2025 Jamie Caballero Recurrent thrombus I82.91 [facility] [address] [place] [place] [address] 02/23/2025 Jamie jud [facility] [address] [place] [address] 09/27/2024 Jamie Caballero [facility] [address] [place] [place] [address] 10/11/2024 Jamie jud [facility] [address] [place] [address] 11/30/2024 Jamie jud [facility] [address] [place] [place] [address] 12/01/2024 Jamie Caballero [facility] [address] [place] [address] 12/01/2024 Jamie Caballero [facility] [address] [place] [address] 12/07/2024 Jamie Caballero [facility] [address] [place] [address] 08/03/2024 Jamie jud [facility] [address] [place] [address] 08/17/2024 Jamie jud [facility] [address] [place] [address] 08/18/2024 Jamie jud [facility] [address] [place] [address] 08/23/2024 Jamie jud [facility] [address] [place] [address] 09/01/2024 Jamie jud [facility] [address] [place] [address] 09/13/2024 Jamie jud [facility] [address] [place] [address] 06/02/2024 Jamie jud [facility] [address] [place] [address] 07/05/2024 Jamie jud [facility] [address] [place] [address] 07/12/2024 Jamie [facility] [address] [place] [address] 07/23/2024 Jamie [facility] [address] [place] [address] 07/26/2024 Xochilt Garcia [facility] [address] [place] [address] 08/03/2024 Jamie jud [facility] [address] [place] [address] 04/06/2024 NOE DELGADOSan [facility] [address] [place] [address] 04/26/2024 Jamie Caballero [facility] [address] [place] [address] 05/11/[address] [facility] [address] [place] [address] 05/17/2024 Jamie Caballero [facility] [address] [place] [address] 05/19/2024 Jamie jud [facility] [address] [place] [address] 06/01/[address] [facility] [address] [place] [address] 03/16/2024 NOE HOY Recurrent thrombus I82.91 [facility] [address] [place] [address] 03/16/2024 NOE HOY Renal function test abnormal R94.4 [facility] [address] [place] [address] 03/17/[address] [facility] [address] [place] [address] 03/18/2024 NOE HOY Abnormal renal funct ion test R94.4 [facility] [address] [place] [address] 03/24/2024 NOE HOY [facility] [address] [place] [address] 03/29/[address] [facility] [address] [facility] [place] [address] 03/12/2024 NOE HOY detention (current) use of 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 Z79.01 and History of DVT (deep vein thrombosis) Z86.718 [facility] [address] [place] [place] [address] 01/24/2025 Jamie Hoy [facility] [address] [place] [place] [address] 06/09/2024 Jamie Hoy Sciatic leg pain M54 .30 [facility] [address] [place] [place] [address] 11/10/2024 Jamie Hoy Rheumatoid arthritis M06.9 [facility] [address] [place] [place] [address] 01/24/2025 Jamie Hoy Sciatic leg pain M54 .30 [facility] [address] [facility] [place] [address] 03/16/2024 NOE HOY Well adult Z00.00 an d Hip pain M25.559 [facility] [address] [place] [place] [address] 12/15/2024 Jamie Hoy Rib contusion S20.21 9A and H/O fall Z91.81 Assessments Encounter Date Diagnosis (ICD Code) Assessment Notes Treatment Notes Treatment Clinical Notes Section Notes 03/16/2024 Well adult (ICD-10 - Z00.00) 03/16/2024 Hip pain (ICD-10 - M25.559) 06/09/2024 Sciatic leg pain (ICD-10 - M54.30) 11/10/2024 Rheumatoid arthritis (ICD-10 - M06.9) 12/15/2024 Rib contusion (ICD-10 - S20.219A) 12/15/2024 H/O fall (ICD-10 - Z91.81) 01/24/2025 Sciatic leg pain (ICD-10 - M54.30) 03/12/2024 detention (current) use of 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 (ICD-10 - Z79.01) 03/12/2024 History of DVT (deep vein thrombosis) (ICD-10 - Z86.718) 199703/16/2024 Recurrent thrombus (ICD-10 - I82.91) 03/16/2024 Renal function test abnormal (ICD-10 - R94.4) 03/18/2024 Abnormal renal function test (ICD-10 - R94.4) 01/18/2025 Recurrent thrombus (ICD-10 - I82.91) 11/10/2024 Other Recommended to rest and use a heating pad on the area. Take NSAIDs for pain as needed Plan Of Treatment Pending Test Test Name Order Date CMP (COMPLETE METABOLIC PANEL) 4 CMP (COMPLETE METABOLIC PANEL) 4 HEMOGLOBIN A1C (GLYCO) 03/16/2024 HEMOGLOBIN A1C (GLYCO) 01/07/2019 LIPID PANEL (CHOL/TRIG/HDL/LDL) 03/16/20 24 CBC WITH DIFF 03/16/2024 CBC WITH DIFF 01/07/2019 PT (PROTIME), INR AND PTT (PT/INR AND PT T) 01/07/2019 BMP (BASIC MET PANEL - W/GFR) 01/07/2019 EKG 01/07/2019 XR Chest PA and Lateral (Routine CXR) * 01/07/2019 MRSA-NASAL SWAB 01/07/2019 PSA, TOTAL 03/16/2024 PROF CHEM 8 (BAS METB) 03/18/2024 PROTIME 03/16/2024 XR CHEST 2 V 12/15/2024 XR HIPS JOSIAS 3_4V WO PELVIS 03/16/2024 XR LSPINE 2_3 VIEWS 03/16/2024 THYROID PANEL (T4/TSH/FREE T3) 4 Prothrombin Time INR 01/18/2025 Prothrombin Time INR 03/12/2024 Insurance Providers Payer Name Payer Address Payer Phone Subscriber Number Group Number Insured Name Patient Relationship to Insured Coverage Start Date Coverage End Date [place] [address] [place] [address] [id number] Alyevangelina Jose Self - patient is the insured 8 Medications Administered Medication Instructions Date of Administration Dosage Notes Kenalog-40 02/19/2023 120 mg 120 Kenalog-40 12/12/2023 120 mg 120 Kenalog-40 06/09/2024 120 mg 120 Ketorolac Tromethamine 02/19/2023 60 mg 60 Ketorolac Tromethamine 12/12/2023 60 mg 60 Ketorolac Tromethamine 06/09/2024 60 mg 60 Orphenadrine Citrate 12/12/2023 60 mg 60 Triamcinolone 40 mg/ml 11/10/2024 120 mg Medical (General) History Medical History History ICD Code Over weight E66.3 Hernia, abdominal K46.9 Rheumatoid arthritis M06.9 Lumbar radiculopathy M54.16 Paresthesias/numbness R20.9 Edema leg R60.0 Lupus anticoagulant disorder D68.62 Degenerative disc disease, lumbar M51.36 Vitamin D deficiency E55.9 Lateral epicondylitis, left elbow M77.12 Cervical lymphadenopathy R59.0 Labyrinthitis H83.09 Hypothyroidism E03.9 Degenerative disc disease, cervical M50. 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 Z79.01 Anxiety F41.9 Migraine headache G43.909 Hypertension I10 GERD (gastroesophageal reflux disease) K 21.9 Anti-cardiolipin antibody syndrome D68.6 1 Nephrolithiasis N20.0 Diabetes mellitus type 2, controlled E11 .9 Coronary artery disease I25.10 History of COVID-19 Z86.16 History of DVT (deep vein thrombosis) Z8 6.718 History of tobacco abuse Z87.891 Renal cyst, acquired, right N28.1 Surgical History Surgery Date(Month/Year) Colonoscopy 09/17/2023 cataracts 03/18/2023 Thrombectomy 10/2021 IVC Filter Cardiac Catheterization-07/12/2019 , ; LAD stent lumbar surgery Dr Matson 12/2018 Miniscus surgery 2011 Hemroid Removal 2009 Lapoma 1993 Tonsilectomy 1987 Hospitalization History Reason Date(Month/Year) [id number] 07/27/2021
--- OUTSIDE RECORDS SUMMARY | 2025-03-02 10:58 | XMS_ITS | Referral Summary ---
Author Organization [facility] Address [address] [place] [address] Care Team Providers Care Supervisor [employer] Name Role Phone Delon Simmons MD Primary Care Provider [phone] Encounters Date Type Department Care Team Description 02/23/2025 Travel 01/24/[address] [address] Janina Rubio MA Essential hypertension 01/18/2025 Orders Only [address] [place] [address] Abby Cook MA [place] (ventricular tachycardia) ([facility]/HCC) 01/18/2025 Orders Only [address] [address] Abby Cook MA Encounter for pre-operative examination 01/18/2025 2:15 PM EDT Office Visit [address] [address] Raulito Thompson MD NSVT (nonsustained ventricular tachycardia) (CMS/HCC) (Primary Dx) 12/16/2024 1:00 PM EDT Office Visit [address] [address] Dagoberto Cormier MD Antiphospholipid syndrome (Primary Dx); History of DVT (deep vein thrombosis); Coronary artery disease involving assiniboine and sioux coronary artery of assiniboine and sioux heart, unspecified whether angina present; Recurrent syncope; Benign essential HTN; CASTILLO (dyspnea on exertion) from Last 3 Months Allergies Active Allergy Reactions Criticality Noted Date Comments Hydrocodone-Acetaminoph en Hallucinations,Unkno wn 03/11/2023 Other Reaction(s): Migraine Penicillins Hives High 01/18/2019 Sulfa (Sulfonamide Antibiotics) Hives 11/03/2024 Medications Medication Sig Dispensed Refills Start Date End Date Status omeprazole (PriLOSEC) [address] capsule Take 20 mg by mouth in the morning. 10/24/2022 Active venlafaxine XR (Effexor-XR) 75 mg 24 hr capsule Take 75 mg by mouth in the morning. 08/30/2022 Active warfarin (Coumadin) 4 mg tablet TAKE 1 TAB BY MOUTH EVERY OTHER DAY (EXCEPT 5MG ON SUNDAYS) 10/14/2022 Active cholecalciferol (Vitamin D-3) 25 MCG (1000 units) tablet Take 1,000 Units by mouth in the morning. Active lisinopril 30 mg tabletIndications: Hypertension, unspecified type take 1 tablet by mouth every morning 90 tablet 3 11/18/2023 Active rosuvastatin (Crestor) 40 mg tabletIndications: Coronary artery disease involving assiniboine and sioux coronary artery of assiniboine and sioux heart without angina pectoris Take 1 tablet (40 mg) by mouth once daily as directed. 90 tablet 3 06/30/2024 06/30/2025 Active Additional Information Patient taking differently:40 mg oralNightly, Reported on 11/03/2024 tiZANidine (Zanaflex) 4 mg tablet Take 4 mg by mouth if needed at bedtime for muscle spasms. 07/23/2024 Active metoprolol tartrate (Lopressor) 25 mg tabletIndications: Unstable angina (CMS/HCC),Coronary artery disease of assiniboine and sioux artery of assiniboine and sioux heart with stable angina pectoris Take 1 tablet (25 mg) by mouth two times daily for 195 doses. 195 tablet 11/05/2024 Active celecoxib (CeleBREX) 200 mg capsule Take 200 mg by mouth every other day. Active traMADol (Ultram) 50 mg tablet Take 1 tablet by mouth every 6 (six) hours during the day. 12/15/2024 Active amLODIPine (Norvasc) 5 mg tabletIndications: Essential hypertension Take 1 tablet (5 mg) by mouth once daily as directed. 90 tablet 3 01/24/2025 01/24/2026 Active aspirin 81 mg chewable tabletIndications: Coronary artery disease of assiniboine and sioux artery of assiniboine and sioux heart with stable angina pectoris Chew 1 tablet (81 mg) in the morning. 30 tablet 2 11/05/2024 02/03/2025 Additional Information Patient not taking.Reported on 12/16/2024 Active Problems Problem Noted Date Diagnosed Date Hip pain 01/18/2025 VT (ventricular tachycardia) 01/18/2025 Anemia 12/16/2024 Bruising 12/16/2024 Cervical lymphadenopathy 12/16/2024 Arthralgia of temporomandibular joint 12/16/2024 COVID-19 12/16/2024 Degeneration of cervical intervertebral disc Hernia, abdominal 12/16/2024 History of COVID-19 12/16/2024 Labyrinthitis 12/16/2024 Lateral epicondylitis 12/16/2024 snf current use of anticoagulant therapy 0 12/16/2024 Lumbar disc herniation 12/16/2024 Sciatica 12/16/2024 Skin sensation disturbance 12/16/2024 Unstable angina 11/03/2024 Assessment & Plan (11/04/2024 12:26 AM EST): -Patient with an episode of chest pain while making his grandchildren dinner this past Friday which subsided after 10 to 15 minutes -Was found to have an elevated troponin of 47 at [facility] earlier today and was transferred to [facility] for possible heart cath -Patient reports most recent cardiac testing was around 2 years ago -CXR completed outside hospital shows no acute process -EKG completed at [facility] shows normal sinus rhythm -Repeat troponin at [facility] found to be 0.03, will continue to trend -Will start patient on heparin infusion if need for cardiac cath arises as patient does take warfarin at home Hx of pulmonary embolus 11/03/2024 Syncope and collapse 11/03/2024 Assessment & Plan (11/04/2024 12:26 AM EST): -Patient reports positive orthostatic vitals in his cardiology office earlier today and states that all of his syncopal events have been when he is gone from a sitting to a standing position -Patient may benefit from event monitor outpatient Angina pectoris, unstable 11/03/2024 Former tobacco use 08/03/2024 Hypothyroidism 08/03/2024 Prostate cancer screening 08/03/2024 Rectal bleeding 08/03/2024 Vitamin D deficiency 08/03/2024 Constipation 08/14/2023 08/14/2023 Hemorrhoid 08/14/2023 08/14/2023 History of DVT (deep vein thrombosis) 08/14/2023 08/14/2023 Migraines 08/14/2023 08/14/2023 Pseudophakia 03/19/2023 08/14/2023 Age-related nuclear cataract of both eyes 202208/14/2023 History of blood clotting disorder 03/11/2023 08/14/2023 History of heart artery stent 03/11/2023 Coronary artery disease invo lving assiniboine and sioux coronary artery of assiniboine and sioux heart without angina pectoris 01/31/2023 Overview (01/31/2023): 03/20/22 CVL FINAL IMPRESSIONS: 1. Moderate 3-vessel coronary artery disease. 2. Patent stent in the mid left anterior descending coronary artery. 3. Moderate, diffuse mid to distal left anterior descending stenosis. 4. Normal global left ventricular systolic function by noninvasive imaging. 5. Severe disease of a small caliber branching 1st diagonal that is jailed by the adjacent left anterior descending stent. Assessment & Plan (11/04/2024 12:26 AM EST): -S/p PCI with stenting Assessment & Plan (01/31/2023 11:15 AM EDT): Coronary artery disease is stable without any concerning symptoms Continue GDMT- ASA, crestor, metoprolol, lisinopril continue risk factor modifications- heart healthy diet, regular exercise as tolerated and continue all medications. Benign essential HTN 01/31/2023 Mixed hyperlipidemia 01/31/2023 Assessment & Plan (11/04/2024 12:26 AM EST): -Continue Crestor Assessment & Plan (01/31/2023 11:16 AM EDT): Continue crestor Script for lipid level and liver function provided to pt- will have drawn today Antiphospholipid syndrome 01/31/2023 Assessment & Plan (01/31/2023 9:06 AM EDT): Remains on warfarin anticoagulation Coronary artery spasm 01/31/2023 Assessment & Plan (01/31/2023 9:06 AM EDT): Continue amlodipine Anticoagulated 01/31/2023 Anxiety 01/31/2023 Bilateral nephrolithiasis 01/31/2023 Kidney stone 01/31/2023 Renal cyst 01/31/2023 BMI 33.0-33.9,adult 01/31/2023 Type 2 diabetes mellitus wit hout complication, without long-term current use of insulin 01/31/2023 Assessment & Plan (11/04/2024 12:26 AM EST): -ISS, ACHS BPH without obstruction/lower urinary tract symp toms 01/31/2023 Microscopic hematuria 01/31/2023 Gross hematuria 01/31/2023 Ureteral stone 01/31/2023 Ureteral stone with hydronephrosis 01/31/2023 CASTILLO (dyspnea on exertion) 01/31/2023 Assessment & Plan (01/31/2023 11:18 AM EDT): Will send pt to pulmonology for evaluation and PFT's Reviewed recent echo 01/2022 and normal EF- LVSF; no significant valvular abnormalities and rt sided pressures. Acute deep vein thrombosis (DVT) of both iliofem oral veins 10/28/2021 Acute deep vein thrombosis ( DVT) of calf muscle vein of left lower extremity 10/28/2021 Benign prostatic hyperplasia 10/28/2021 Gastroesophageal reflux disease without esophagi tis 10/28/2021 S/P insertion of IVC (inferior vena caval) filte r 10/28/2021 Assessment & Plan (11/04/2024 12:26 AM EST): -Warfarin on hold secondary to possible procedure, continue heparin infusion Diabetes mellitus type 2 in obese 12/21/2019 Assessment & Plan (01/31/2023 11:17 AM EDT): Sending for routine annual labs today in light he remains fasting, will add A1C to labs to assess glycemic management History of deep vein thrombosis 12/21/2019 APS (antiphospholipid syndrome) 12/21/2019 Assessment & Plan (11/04/2024 12:26 AM EST): -Warfarin on hold in case of procedure, continue heparin infusion Primary hypertension 12/21/2019 Assessment & Plan (11/04/2024 12:26 AM EST): -Continue metoprolol, lisinopril, amlodipine Assessment & Plan (01/31/2023 11:16 AM EDT): Hypertension is 130/91- States at home b/p is typically well controlled Continue all meds Coronary arteriosclerosis 07/12/2019 Lumbar radiculopathy 01/18/2019 Social History Tobacco Use Types Packs/Day Years Used Date Smoking Tobacco: Former Cigarettes Smokeless Tobacco: Never Tobacco Cessation:Counseling Given: Not Answered Alcohol Use Standard Drinks/Week Comments Yes 0 (1 standard drink = 0.6 oz pur e alcohol) occasional SEAT 4a Utilities Answer Date Recorded In the past 12 months has th e [employer], gas, oil, or water [employer] threatened to shut off services in your [...] any time in the past 12 m [facility], were you homeless or living in a senior living (including now)? No 11/03/2024 Hunger Vital Sign [...] Sign Reading Time Taken Comments Blood Pressure 135/97 01/18/2025 2:50 PM EDT Pulse 62 01/18/2025 2:50 PM EDT Temperature 36.5 C (97.7 F) 11/05/2024 7:00 PM EST Respiratory Rate 24 11/05/2024 8:00 PM EST Oxygen Saturation 94% 01/18/2025 2:50 PM EDT Inhaled Oxygen Concentration - - Weight 104 kg (230 lb) 01/18/2025 2:50 PM EDT Height 177.8 cm (5' 10 ) 01/18/2025 2:50 PM EDT Body Mass Index 33 01/18/2025 2:50 PM EDT Plan of Treatment Upcoming Encounters Date Type Department Care Team (Latest Contact Info) Description 03/03/2025 12:55 PM EDT Hospital Encounter [facility] [address] [place] [address] Raulito Thompson MD [address] [place] [address] [place] (ventricular tachycardia) ([facility]) 03/03/2025 2:55 PM EDT - 03/03/2025 3:55 PM EDT Surgery [facility] [address] [place] [address] Raulito Thompson MD [address] [place] [address] Electrophysiology procedure [37340 (CPT )] 04/05/2025 3:30 PM EDT Office Visit [facility] Heart at [facility] [address] [place] [address] Raulito Thompson MD [address] [place] [address] Advance Directives * Full Code (Latest Code Status on File) Date Activated Date Inactivated Comments 11/03/2024 10:44 PM 11/05/2024 10:34 PM Care Teams Supervisor Mold [employer] Relationship Specialty Start Date End Date Delon Simmons MD [address] [facility] [address] [address] PCP - General 01/31/23
--- OUTSIDE RECORDS SUMMARY | 2025-03-02 10:58 | XMS_ITS | Clinical Summary ---
Author Organization [facility] Address [address] [place] [address] Care Team Providers Care Filter Cloth Maker Name Role Phone Delon Simmons MD Primary Care Provider [phone] Allergies Active Allergy Reactions Criticality Noted Date [...] 40 mg tabletIndications: Coronary artery disease involving north fork coronary artery of north fork heart without angina pectoris Take 1 tablet (40 mg) by mouth once daily as directed. 90 tablet 3 06/30/2024 06/30/2025 Active Additional Information Patient taking differently:40 mg oralNightly, Reported on 11/03/2024 tiZANidine (Zanaflex) 4 mg tablet Take 4 mg by mouth if needed at bedtime for muscle spasms. 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 Chew 1 [...] COVID-19 12/16/2024 Labyrinthitis 12/16/2024 Lateral epicondylitis 12/16/2024 intermediate frame tender current use of anticoagulant therapy 0 12/16/2024 Lumbar disc herniation 12/16/2024 Sciatica 12/16/2024 Skin sensation disturbance 12/16/2024 Unstable angina 11/03/2024 Assessment & Plan (11/04/2024 12:26 AM EST): -Patient with an episode of chest pain while making his grandchildren dinner this past Friday which subsided after 10 to 15 minutes -Was found to have an elevated troponin of 47 at [facility] earlier today and was transferred to [facility] for possible heart cath -Patient reports most recent cardiac testing was around 2 years ago -CXR completed outside hospital shows no acute process -EKG completed at [facility] shows normal sinus rhythm -Repeat troponin at [facility] found to be 0.03, will continue to [...] stent 03/11/2023 Coronary artery disease invo lving north fork coronary artery of north fork heart without angina pectoris 01/31/2023 Overview (01/31/2023): [...] meds Coronary arteriosclerosis 07/12/2019 Lumbar radiculopathy 01/18/2019 Encounters Date Type Department Care Team Description 02/23/2025 Travel 01/24/2025 Refill [place] [address] [facility] [place] [phone] Janina Rubio MA Essential hypertension 01/18/2025 2:15 PM EDT Office Visit [place] [address] [place] [phone] Raulito Thompson MD NSVT (nonsustained ventricular tachycardia) (CMS/HCC) (Primary Dx) 01/18/2025 Orders Only [facility] [address] [facility] [place] [address] Abby Cook MA VT (ventricular tachycardia) (CMS/HCC) 01/18/2025 Orders Only [facility] [address] [facility] [place] [address] Abby Cook MA Encounter for pre-operative examination 12/16/2024 1:00 PM EDT Office Visit [facility] [address] [facility] [place] [address] Dagoberto Cormier MD Antiphospholipid syndrome (Primary Dx); History of DVT (deep vein thrombosis); Coronary artery disease involving north fork coronary artery of north fork heart, unspecified whether angina present; Recurrent syncope; Benign essential HTN; CASTILLO (dyspnea on exertion) from Last 3 Months Family History Medical History Relation Name Comments Coronary artery disease Father Coronary artery disease Mother Relation Name Status Comments Brother Alive Father Mother Sister Alive Social History Tobacco Use Types Packs/Day Years Used Date Smoking Tobacco: Former Cigarettes Smokeless Tobacco: Never Tobacco Cessation:Counseling Given: Not Answered Alcohol Use Standard Drinks/Week Comments Yes 0 (1 standard drink = 0.6 oz pur e alcohol) occasional [employer] Utilities Answer Date Recorded In the past 12 months has e [employer], gas, oil, or water [employer] threatened to shut off services in your [...] any time in the past 12 m [facility], were you homeless or living in a long term (including now)? No 11/03/2024 Hunger Vital Sign [...] Description 03/03/2025 12:55 PM EDT Hospital Encounter [facility] [address] [place] [address] Raulito Thompson MD [address] [place] [address] [place] (ventricular tachycardia) (CMS/HCC) 03/03/2025 2:55 PM EDT - 03/03/2025 3:55 PM EDT Surgery [facility] [address] [place] [address] Raulito Thompson MD [address] [place] [address] Electrophysiology procedure [74572 (CPT )] 04/05/2025 3:30 PM EDT Office Visit [facility] Heart at [facility] [address] [place] [address] Raulito Thompson MD [address] [place] [address] Health Maintenance Due Date Last Done Comments CT Colonography 1963 Diabetes: Hemoglobin A1C 1963 FIT-DNA 1963 FIT 1963 FOBT 1963 Medicare Annual Wellness (AWV) 1963 Sigmoidoscopy 1963 Pneumococcal Vaccine: Pediatrics (0 to 5 Years) and At-Risk Patients (6 to 64 Years) (1 of 2 - PCV) 1969 Diabetes: Retinopathy Screening 1973 Depression Screening 1975 Diabetes: Urine Protein Screening 1982 Zoster Vaccines (1 of 2) 2013 COVID-19 Vaccine ( - 2023-2 5 season) 2024 Colonoscopy 11/14/2024 11/14/2014 Colorectal Cancer Screening 11/14/2024 Influenza Vaccine (Season Ended) 2025 08/27/2017, 06/26/2016 Adult Tetanus 02/26/2033 02/26/2023 HIB Vaccines Aged Out No longer eligi ble based on patient's age to complete this topic HPV Vaccines Aged Out No longer eligi ble based on patient's age to complete this topic IPV Vaccines Aged Out No longer eligi ble based on patient's age to complete this topic Meningococcal B Vaccine Aged Out No l onger eligible based on patient's age to complete this topic Meningococcal Vaccine Aged Out No juan evangelina eligible based on patient's age to complete this topic Rotavirus Vaccines Aged Out No longer eligible based on patient's age to complete this topic Advance Directives * Full Code (Latest Code Status on File) Date Activated Date Inactivated Comments 11/03/2024 10:44 PM 11/05/2024 10:34 PM Care Teams Filter Cloth Maker Relationship Specialty Start Date End Date Delon Simmons MD [address] [place] [facility] [place] [address] PCP - General 01/31/23
--- OUTSIDE RECORDS SUMMARY | 2025-03-02 11:19 | XMS_ITS | CCD ---
Author Organization [facility] Care Team Providers Care Pharmacist In Charge Owner Name Role Phone EFREM MATSON Admitting Unavailable [...] Unavailable HOY ., DR LIU Consulting Unavailable [place], DR EFREM Ventura Consulting Unavailable HOY ., [...] HOY ., DR LIU Primary Care Unavailable [facility], DR MASON Braun Consulting Unavailable ELIJAH, [...] SLAUGHTER Admitting Unavailable ALFIE SLAUGHTER Attending Unavailable HODELON Topete Primary Care Unavailable Delon Caballreo MD Primary Care Provider Delon Caballero MD Unavailable Jamil DE LUNA R Attending Unavailable Orzech, Elsy X Attending Unavailable ELIJAH, ALEJANDRO Paniagua Attending Unavailab le Orzech, Elsy X Attending Unavailable Orzech, Elsy X Admitting Unavailable Orzech, Elsy X Attending Unavailable Orzech, Elsy X Admitting Unavailable Orzech, Elsy X Attending Unavailable ELIJAH, ALEJANDRO Paniagua Admitting Unavailab le ELIJAH, ALEJANDRO Paniagua Attending Unavailab le NILL, Jamil Braun Attending Unavailable NILL, Jamil Braun Attending Unavailable Hoy, Delon Referring Unavailable Hoy, Delon Referring Unavailable NILL, Jamil Braun Attending Unavailable RICE, AZALEA Referring Unavailable HORANI, NAZANIN Admitting Unavailable MCGOWAN, DIANDRA Attending Unavailable ALONDRAJASVIR Attending Unavailable TIANAALONSO Attending Unavailable ELTAHAWY, EHAB Attending Unavailable MCGOWAN, DIANDRA Referring Unavailable MCGOWAN, DIANDRA Referring Unavailable PIRKL, LISS Referring Unavailable PIRKL, LISS Referring Unavailable ELTAHAWY, EHAB Attending Unavailable Allergies Allergy Classification Reported Allergen(s) Allergy Type Date of Onset Reaction(s) Facility (10 sources) Acetaminophen / HYDROcodone; Translations: [acetaminophen-h ydrocodone] Drug Allergy Hallucinations (finding), Migraine (disorder) [facility] (14 sources) Penicillins; Translations: [penicillins] Drug allergy 06-29-20 14 Weal (disorder) [facility] (10 sources) Sulfonamides (Antibiotic); Translations: [sulfa drugs] Drug allergy Weal (disorder) [facility] (1 source) Acetaminophen / HYDROcodone Drug Allergy [facility] Rep[facility] (2 sources) Sulfonamides (Antibiotic) Drug allergy (disorder) 11-11-19 15 [facility] Repository (1 source) Penicillin; Translations: [penicillin] Drug Allergy [facility] Repository (1 source) Acetaminophen / HYDROcodone; Translations: [HYDROCODONE-KODY TAMINOPHEN] Drug Allergy 03-11-20 [facility] Repository (1 source) Sulfonamides (Antibiotic); Translations: [SULFA (SULFONAMIDE ANTIBIOTICS)] Propensity to adverse reactions to drug (disorder) 11-03-19 [facility] Repository Medications Current Medications Medication Drug Class(es) Dates Sig (Normalized) Sig (Original) acetaminophen 325 mg / oxyCODONE hydrochloride 5 mg oral tablet (2 sources) Opioid Agonist Start: 01-17-2022 take 1 tablet by mouth every six hours Percocet 5 mg-325 mg oral tablet 1 tab(s), Oral, q6hr Pain 8-10, 20 tab(s), Refill(s) 0, [facility], [address], cm, 01/11/22 13:03:00 EDT, Height/Length [...] Start: 05-25-2019 take 1 tablet by geri once daily atorvastatin 40 mg Tab 40 [...] day(s), # 6 tab(s), Refills(s) 0, Pharmacy: [address], [address], cm, 01/11/22 13:03:00 EDT, Height/Length [...] (10 sources) Angiotensin Converting Enzyme Inhibitor Start: 021 take 1 tablet by mouth once daily [...] omeprazole 20 mg Cap-DR (3 sources) Start: omeprazole 20 mg Cap-DR 20 mg = [...] for 30 day(s), 60 tab(s), Refill(s) 6, [facility], 178, cm, 12/30/23 11:22:00 EDT, [...] Status: Ordered take 1 tablet by geri every two hours as needed SUMAtriptan (IMITREX) [...] Start: 08-29-2020 take 1 capsule by [facility] once daily venlafaxine 75 mg Cap-ER 75 [...] Coronary arteriosclerosis; Translations: [Atherosclerotic heart disease of [place] coronary artery without angina pectoris] Onset: 2 [...] sources) Long-term current use of anticoagulant; Translations: [supervisor intermediates (current) use of 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] Onset: 2 Episodic [...] function 08-15-2023 Episodic Other lower respiratory disease (3 sources) [...] Onset: 3 Chronic Phlebitis; thrombophlebitis and thromboembolism (16 sources) Deep venous thrombosis; Translations: [H/O: embolism] Onset: 5 09-13-2021 Episodic Rheumatoid arthritis and related disease [...] Documented Da te Episodic/Chronic Nonspecific chest pain (8 sources) Chest pain, unspecified; Translations: [Other chest pain] Onset: 03-07-2022 Episodic Other aftercare (1 source) Encounter for therapeutic drug level monitoring; Translations: [ENC THERAPEUTC DRUG LEVL MONITORING] Onset: 09-24-2022 Episodic Other aftercare (1 source) skilled nursing (current) use of 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; Translations: [INSPECTOR BARREL CURRNT USE ANTICOAGULANTS] Onset: 09-24-2022 Episodic Pulmonary heart disease (2 sources) Personal history of pulmonary embolism; Translations: [Personal history of pulmonary embolism] Onset: 11-03-2024 Episodic Syncope (2 sources) Syncope and collapse; Translations: [Syncope and collapse] Onset: 11-03-2024 Episodic Results Test Name Value Interpretation Reference Range Facility Office Visiton 01-18-2025 Follow-up visit [id number] Doris Luis 1965 Date Provider Department Center 01/18/2025 ALONSO SCHWAB BH [facility] Family History Problem Relation Age of Onset Coronary artery disease Mother Coronary artery disease Father Family Status - Relation Status Age at Mother Father Sister Alive Brother Alive Level of Service:14360 [place] OFFICE/OUTPATIENT NEW HIGH MDM 60 MINUTES Normal [facility] Orders Onlyon 01-18-2025 Orders Only [id number] Doris Luis 1965 M Date Provider Department Center 01/18/2025 Myrna5-JUAN MIGUEL NICOLAS [facility] Family History Problem Relation Age of Onset Coronary artery disease Mother Coronary artery disease Father Family Status - Relation Status Age at Mother Father Sister Alive Brother Alive Normal [facility] Office Visiton 12-16-2024 Follow-up visit [id number] Doris Luis 1965 M Date Provider Department Center 12/16/2024 Radha-DAGOBERTO CORMIER [facility] Family History Problem Relation Age of Onset Coronary artery disease Mother Coronary artery disease Father Family Status - Relation Status Age at Mother Father Level of Service:23856 [place] OFFICE/OUTPATIENT ESTABLISHED MOD MDM 30 MIN Normal [facility] 36on 11-06-2024 36 Post Discharge Call Good morning, I am Violeta Zuniga RN a lead nurse from [facility]. I am calling you to follow up [...] No Patient Name Doris Luis Date 11/06/24 Normal [facility] Telephoneon 11-06-2024 Telephone [id number] Doris Luis Siva 1965 M Date Provider Department Center 11/06/2024 [id number]-[id number] [facility] [place] [facility] Family History Problem Relation Age of Onset Coronary artery disease Mother Coronary artery disease Father Family Status - Relation Status Age at Mother Father [facility] 30on 11-05-2024 30 The patient is Moderately Stable - Low risk of patient condition declining or worsening The patient's goals for the shift include discharge The clinical goals for the shift include stable vs Over the shift, the patient did make progress toward his goals. Normal [facility] 30 The patient is Moderately [...] for assistance with activity based on assessment Gamaliel fall precautions as indicated by assessment Problem: [...] maintained or improved Outcome: Progressing Flowsheets (Taken 11/05/2024801) Care Plan - Patient's Chronic Conditions and [...] conditions and prevent exacerbation or deterioration Normal [facility] ANESon 11-05-2024 ANES - Attestation signed by Dagoberto Cormier MD at 11/05/2024 1:10 PM Dagoberto Cormier MD, MPH, [facility], [facility], [facility] Interventional Cardiology Pager Email: [email or web address] Patient: Doris Luis Procedure Information Date/Time: 11/05/24 1305 Procedure: Coronary angiography - HIGH INR Location: [facility] 2 BIPLANE / [facility] (Cath) Providers: Dagoberto Cormier MD Clinical information reviewed: Allergies Meds Physical Exam Airway Mallampati: III Cardiovascular Dental Pulmonary Abdominal Anesthesia Plan ASA 3 other (Conscious sedation) intravenous induction Anesthetic plan and risks discussed with patient. Use of blood products discussed with patient who consented to blood products. Plan discussed with attending and fellow. Additional Equipment Requests Normal [facility] ANTI-XA (HEPARIN LEVEL)on HEPARIN UNFRACTIONATED (U/ML) IN PPP BY CHROMOGENIC METHOD 0.99 IU/mL Critically high 0.3-0.7 [facility] Comment on above: Result Comment: Ileana roxaban and Apixaban will interfere with the anti Xa assay used to monitor UFH and LMWH. Performed By: #### L [id number] #### [facility] ([facility]) [address] [place] [address] BASIC METABOLIC PANELon 02-0 Anion gap [Moles/Vol] 10 mmol/L Normal 7-20 [facility] Comment on above: Performed By: #### L [id number] ####[facility] ([facility])[address] [place] [address] Calcium [Mass/Vol] 9.0 mg/dL Normal 8.6-10.3 [facility] Comment on above: Performed By: #### L [id number] ####[facility] ([facility])[address] [place] [address] Chloride [Moles/Vol] 105 mmol/L Normal 98-107 [facility] Comment on above: Performed By: #### L [id number] ####[facility] ([facility])[address] [place] [address] CO2 [Moles/Vol] 28 mmol/L Normal 21-[address] [facility] Comment on above: Performed By: #### L [id number] ####[facility] ([facility])[address] [place] [address] Creatinine [Mass/Vol] 1.32 mg/dL High 0.70-1.30 [facility] Comment on above: Performed By: #### L [id number] ####[facility] ([facility])[address] [place] [address] GLOMERULAR FILTRATION RATE ML/MIN/1.73 SQ M.PREDICTED 61.4 mL/min/1.73m*2 Normal >60.0 [facility] Comment on above: Result Comment: [facility]???s estimated glomerular filtration rate (eGFR) [...] of individuals. Performed By: #### L [id number] ####[facility] ([facility])[address] [place] [address] Glucose [Mass/Vol] 101 mg/dL High 70-100 [facility] Comment on above: Performed By: #### L [id number] ####[facility] ([facility])[address] [place] [address] Potassium [Moles/Vol] 4.1 mmol/L Normal 3.5-5.1 [facility] Comment on above: Performed By: #### L [id number] ####[facility] ([facility])[address] [place] [address] Sodium [Moles/Vol] 139 mmol/L Normal 136-145 [facility] Comment on above: Performed By: #### L [id number] ####[facility] ([facility])[address] [place] [address] Urea nitrogen [Mass/Vol] 20 mg/dL Normal 7-25 [facility] Comment on above: Performed By: #### L [id number] ####[facility] ([facility])[address] [place] [address] UREA NITROGEN/CREATININE (MASS RATIO) IN SER/PLAS 15.2 Normal [facility] Comment on above: Performed By: #### L [id number] ####[facility] ([facility])[address] [place] [address] CBC WITH AUTO DIFFERENTIALon 11-05-2024 Basophils (Bld) [#/Vol] 0.10 10*3/uL Normal 0.00-0.20 [facility] Comment on above: Performed By: #### L [id number] ####[facility] ([facility])[address] [place] [address] Basophils/100 WBC (Bld) 1.2 % High 0.0-1.0 [facility] Comment on above: Performed By: #### L [id number] ####[facility] (BE[facility]ER)[address] [place] [address] Eosinophils (Bld) [#/Vol] 0.17 10*3/uL Normal 0.00-0.50 [facility] Comment on above: Performed By: #### L [id number] ####[facility] [place] [address] Eosinophils/100 WBC (Bld) 2.0 % Normal 0.0-6.0 [facility] Comment on above: Performed By: #### L [id number] ####[facility] ([facility])[address] [place] [address] Erythrocyte distribution width (RBC) [Ratio] 17.4 % High 11.5-15.0 [facility] Comment on above: Performed By: #### L [id number] ####[facility] ([facility])[address] [place] [address] ERYTHROCYTE MEAN CORPUSCULAR HEMOGLOBIN CONCENTRATION (G/DL) BY AUTOMATED 29.8 g/dL Low 32.0-35.0 [facility] Comment on above: Performed By: #### L [id number] ####[facility] ([facility])[address] [place] [address] Hematocrit (Bld) [Volume fraction] 40.0 % Normal 39.0-55.0 [facility] Comment on above: Performed By: #### L [id number] ####[facility] [place] [address] Hemoglobin (Bld) [Mass/Vol] 11.9 g/dL Low 13.0-17.0 [facility] Comment on above: Performed By: #### L [id number] ####[facility] ([facility])[address] [place] [address] Immature granulocytes (Bld) [#/Vol] 0.03 10*3/uL Normal 0.00-0.20 [facility] Comment on above: Performed By: #### L [id number] ####[facility] ([facility])[address] [place] [address] Immature granulocytes/100 WBC (Bld) 0.3 % Normal 0.0-1.0 [facility] Comment on above: Performed By: #### L [id number] ####[facility] ([facility])[address] [place] [address] Lymphocytes (Bld) [#/Vol] 2.67 10*3/uL Normal 1.20-4.00 [facility] Comment on above: Performed By: #### L [id number] ####[facility] ([facility])[address] [place] [address] Lymphocytes/100 WBC (Bld) 30.9 % Normal 20.0-45.0 [facility] Comment on above: Performed By: #### L [id number] ####[facility] ([facility])[address] [place] [address] MCH (RBC) [Entitic mass] 21.3 pg Low 27.0-33.0 [facility] Comment on above: Performed By: #### L [id number] ####[facility] ([facility])[address] [place] [address] MCV (RBC) [Entitic vol] 71.7 fL Low 82.0-98.0 [facility] Comment on above: Performed By: #### L [id number] ####[facility] ([facility])[address] [place] [address] Monocytes (Bld) [#/Vol] 0.84 10*3/uL Normal 0.10-1.00 [facility] Comment on above: Performed By: #### L [id number] ####[facility] ([facility])[address] [place] [address] Monocytes/100 WBC (Bld) 9.7 % Normal 5.0-12.0 [facility] Comment on above: Performed By: #### L [id number] ####[facility] ([facility])[address] [place] [address] Neutrophils (Bld) [#/Vol] 4.84 10*3/uL Normal 1.60-7.60 [facility] Comment on above: Performed By: #### L [id number] ####[facility] [place] [address] Neutrophils/100 WBC (Bld) 55.9 % Normal 40.0-72.0 [facility] Comment on above: Performed By: #### Phong [id number] ####[facility] ([facility])[address] [place] [address] NRBC (PER 100 WBCS) BY AUTOMATED COUNT 0.0 % Normal 0 [facility] Comment on above: Performed By: #### Phong [id number] ####[facility] ([facility])[address] [place] [address] PLATELETS (10*3/UL) IN BLOOD AUTOMATED COUNT 311 10*3/uL Normal 150-400 [facility] Comment on above: Performed By: #### Phong [id number] ####[facility] ([facility])[address] [place] [address] RBC (Bld) [#/Vol] 5.58 10*6/uL Normal 4.20-5.70 [facility] Comment on above: Performed By: #### Phong [id number] ####[facility] ([facility])[address] [place] [address] WBC (Bld) [#/Vol] 8.65 10*3/uL Normal 4.00-10.60 [facility] Comment on above: Performed By: #### Phong [id number] ####[facility] ([facility])[address] [place] [address] HPon 11-05-2024 - Attestation signed by Dagoberto Cormier MD at 11/05/2024 1:10 PM Dagoberto Cormier MD, MPH, [facility], [facility], [facility] Interventional Cardiology Pager Email: [email or web address] H&P reviewed. The patient was examined and there are no changes to the H&P. Normal [facility] LIPID PANELon 11-05-2024 CHOL/HDL 3.2 mg/dL Normal [facility] Comment on above: Performed By: #### L [id number] #### [facility] ([facility]) [address] [place] [address] Cholesterol [Mass/Vol] 106 mg/dL Low 120-200 [facility] Comment on above: Performed By: #### L [id number] #### [facility] ([facility]) [address] [place] [address] Magnesium [Mass/Vol] 130 mg/dL Normal 40-149 [facility] Comment on above: Result Comment: TRIG LYCERIDE REFERENCE RANGE: 20 YEARS AND OLDER CARDIOVASCULAR RISK LESS THAN 150 mg/dL LOW RISK 150 TO 199 mg/dL BORDERLINE RISK 200 mg/dL AND GREATER HIGH RISK Performed By: #### L [id number] #### [facility] ([facility]) [address] [place] [address] Magnesium [Mass/Vol] 47 mg/dL Normal 0-160 [facility] Comment on above: Performed By: #### L [id number] #### [facility] ([facility]) [address] [place] [address] Magnesium [Mass/Vol] 33 mg/dL Normal 23-92 [facility] Comment on above: Performed By: #### L [id number] #### [facility] ([facility]) [address] [place] [address] NON HDL CHOL. (LDL+VLDL) 73 Normal [facility] Comment on above: Performed By: #### L [id number] #### [facility] ([facility]) [address] [place] [address] TOTAL VLDL-C 26 mg/dL Normal 0-40 [facility] Comment on above: Performed By: #### L [id number] #### [facility] ([facility]) [address] [place] [address] PROTIME-INRon 11-05-2024 INR IN PPP BY COAGULATION ASSAY 2.03 High 0.90-1.10 [facility] Comment on above: Result [...] CHEST 1995;108:[id number]. Performed By: #### L [id number] ####[facility] ([facility])[address] [place] [address] PROTHROMBIN TIME (PT) IN PPP BY COAGULATION ASSAY 22.6 Seconds High 12.3-14.8 [facility] Comment on above: Performed By: #### L [id number] ####[facility] ([facility])[address] [place] [address] 30on 11-04-2024 30 The patient is Moderately Stable - Low risk of patient condition declining or worsening The patient's goals for the shift include comfort and rest The clinical goals for the shift include stable VS Over the shift, the patient did make progress toward his goals. Normal [facility] 30 The patient is Moderately Stable - Low risk of patient condition declining or worsening The patient's goals for the shift include comfort The clinical goals for the shift include stable vs Over the shift, the patient did not make progress toward the following goals. Barriers to progression include . Recommendations to address these barriers include . Normal [facility] ANTI-XA (HEPARIN LEVEL)on HEPARIN UNFRACTIONATED (U/ML) IN PPP BY CHROMOGENIC METHOD 0.58 IU/mL Normal 0.3-0.7 [facility] Comment on above: Result Comment: Ileana roxaban and Apixaban will interfere with the anti Xa assay used to monitor UFH and LMWH. Performed By: #### L [id number] ####[facility] ([facility])[address] [place] [address] HEPARIN UNFRACTIONATED (U/ML) IN PPP BY CHROMOGENIC METHOD 0.41 IU/mL Normal 0.3-0.7 [facility] Comment on above: Result Comment: [place]fall roxaban and Apixaban will interfere with the anti Xa assay used to monitor UFH and LMWH. Performed By: #### L [id number] #### [facility] ([facility]) [address] [place] [address] HEPARIN UNFRACTIONATED (U/ML) IN PPP BY CHROMOGENIC METHOD <0.10 Invalid Interpretation Code 0.3-0.7 [facility] Comment on above: Result Comment: [place]fall roxaban and Apixaban will interfere with the anti Xa assay used to monitor UFH and LMWH. Performed By: #### L [id number] #### [facility] ([facility]) [address] [place] [address] CBCon 11-04-2024 Erythrocyte distribution width (RBC) [Ratio] 17.7 % High 11.5-15.0 [facility] Comment on above: Performed By: #### L [id number] #### [facility] [address] [place] [address] ERYTHROCYTE MEAN CORPUSCULAR HEMOGLOBIN CONCENTRATION (G/DL) BY AUTOMATED 29.4 g/dL Low 32.0-35.0 [facility] Comment on above: Performed By: #### L [id number] #### [facility] ([facility]) [address] [place] [address] Hematocrit (Bld) [Volume fraction] 39.5 % Normal 39.0-55.0 [facility] Comment on above: Performed By: #### L [id number] #### [facility] ([facility]) [address] [place] [address] Hemoglobin (Bld) [Mass/Vol] 11.6 g/dL Low 13.0-17.0 [facility] Comment on above: Performed By: #### L [id number] #### [facility] ([facility]) [address] [place] [address] MCH (RBC) [Entitic mass] 21.3 pg Low 27.0-33.0 [facility] Comment on above: Performed By: #### L [id number] #### [facility] ([facility]) [address] [place] [address] MCV (RBC) [Entitic vol] 72.6 fL Low 82.0-98.0 [facility] Comment on above: Performed By: #### L [id number] #### [facility] [address] [place] [address] PLATELETS (10*3/UL) IN BLOOD AUTOMATED COUNT 308 10*3/uL Normal 150-400 [facility] Comment on above: Performed By: #### L [id number] #### [facility] [address] [place] [address] RBC (Bld) [#/Vol] 5.44 10*6/uL Normal 4.20-5.70 [facility] Comment on above: Performed By: #### L [id number] #### [facility] ([facility]) [address] [place] [address] WBC (Bld) [#/Vol] 8.24 10*3/uL Normal 4.00-10.60 [facility] Comment on above: Performed By: #### L [id number] #### [facility] ([facility]) [address] [place] [address] CONSULTon 11-04-2024 CONSULT - Attestation with edits [...] postural changes. Patient is following Dr. Cormier nude model as out patient setting. He was sent to the hospital by cardiology and found to have elevated troponin. He was then transferred to the [facility] for further evaluation and management Vitals were unremarkable. Labs notable for peak troponin 0.03. EKG showed sinus rhythm. Patient was treated with heparin infusion. Cardiology was consulted for management of unstable angina. Cardiology ROS: Negative except as mentioned. Past Medical History He has a past medical history of Coronary artery disease, Deep vein thrombosis ([facility]), Diabetes mellitus ([facility]), Hyperlipidemia, and Hypertension. Surgical History He has [...] mg 650 mg oral q6h PRN Liss Castro CNP amLODIPine (Norvasc) tablet 5 mg 5 mg oral Daily Liss Castro CNP 5 mg at 11/04/24 0942 heparin infusion 100 units/mL in D5W 0-28 Units/kg/hr intravenous Continuous Liss Castro CNP 15.5 mL/hr at 11/04/24 0000 15 Units/kg/hr at 11/04/24 0000 lisinopril tablet 30 mg 30 mg oral Daily (more content not included)... [facility] HPon 11-04-2024 - Attestation signed by Demarco Pepe MD [...] postural changes. Patient is following Dr. Cormier nude model as out patient setting. He was sent to the hospital by cardiology and found to have elevated troponin. He was then transferred to the [facility] for further evaluation and management [...] mg 650 mg oral q6h PRN Liss SALVATORE Castro amLODIPine (Norvasc) tablet 5 mg 5 mg oral Daily Liss Claroselsa PICKLE MAKER 5 mg at 11/04/24 0942 heparin infusion 100 units/mL in D5W 0-28 Units/kg/hr intravenous Continuous Lissrodney Claroselsa, PICKLE MAKER 15.5 mL/hr at 11/04/24 0000 15 Units/kg/hr at 11/04/24 0000 lisinopril tablet 30 mg 30 mg oral Daily Lexus (more content not included)... Normal [facility] PLATELET COUNTon 11-04-2024 PLATELETS (10*3/UL) IN BLOOD AUTOMATED COUNT 307 10*3/uL Normal 150-400 [facility] Comment on above: Performed By: #### L [id number] #### [facility] (BEAKER) [address] [place] [address] PROTIME-INRon 11-04-2024 INR IN PPP BY COAGULATION ASSAY 2.42 High 0.90-1.10 [facility] Comment on above: Result [...] CHEST 1995;108:231S-246S. Performed By: #### L [id number] ####[facility] ([facility])[address] [facility] [address] PROTHROMBIN TIME (PT) IN PPP BY COAGULATION ASSAY 25.8 Seconds High 12.3-14.8 [facility] Comment on above: Performed By: #### L [id number] ####[facility] ([facility])[address] [place] [address] TROPONIN Ion 11-04-2024 Troponin I.cardiac [Mass/Vol] 0.02 ng/mL Normal 0.00-0.04 [facility] Comment on above: Performed By: #### L [id number] #### [facility] ([facility]) [address] [facility] [place] [address] Troponin I.cardiac [Mass/Vol] 0.03 ng/mL Normal 0.00-0.04 [facility] Comment on above: Performed By: #### L [id number] #### [facility] ([facility]) [address] [place] [address] Troponin I.cardiac [Mass/Vol] 0.03 ng/mL Normal 0.00-0.04 [facility] Comment on above: Performed By: #### L [id number] #### [facility] ([facility]) [address] [place] [address] 30on 11-03-2024 30 The patient is Moderately Stable - Low risk of patient condition declining or worsening The patient's goals for the shift include Comfort The clinical goals for the shift include VSS Over the shift, the patient did make progress toward his goals. Normal [facility] 30 The patient is Moderately Stable - Low risk of patient condition declining or worsening The patient's goals for the shift include VSS The clinical goals for the shift include Comfort Normal [facility] APTTon 11-03-2024 ACTIVATED PARTIAL THROMBOPLASTIN TIME IN PPP BY COAGULATION ASSAY 27.0 Seconds Normal 25.0-35.0 [facility] Comment on above: Order Comment: Basel ine aPTT before initiating heparin infusion. Result Comment: Clin ical significance of the APTT is questionable in the presence of heparin. Performed By: #### L [id number] #### [facility] ([facility]) [address] [place] [address] B-TYPE NATRIURETIC PEPTIDEon 11-03-2024 Natriuretic peptide B (Bld) [Mass/Vol] 37 pg/mL Normal 0-100 [facility] Comment on above: Performed By: #### L [id number] #### [facility] ([facility]) [address] [place] [address] CBC WITH AUTO DIFFERENTIALon 11-03-2024 Basophils (Bld) [#/Vol] 0.07 10*3/uL Normal 0.00-0.20 [facility] Comment on above: Performed By: #### L [id number] #### [facility] ([facility]) [address] [place] [address] Basophils/100 WBC (Bld) 0.9 % Normal 0.0-1.0 [facility] Comment on above: Performed By: #### L [id number] #### [facility] ([facility]) [address] [place] [address] Eosinophils (Bld) [#/Vol] 0.13 10*3/uL Normal 0.00-0.50 [facility] Comment on above: Performed By: #### L [id number] #### [facility] ([facility]) [address] [place] [address] Eosinophils/100 WBC (Bld) 1.6 % Normal 0.0-6.0 [facility] Comment on above: Performed By: #### L [id number] #### [facility] ([facility]) [address] [place] [address] Erythrocyte distribution width (RBC) [Ratio] 17.2 % High 11.5-15.0 [facility] Comment on above: Performed By: #### L [id number] #### [facility] ([facility]) [address] [place] [address] ERYTHROCYTE MEAN CORPUSCULAR HEMOGLOBIN CONCENTRATION (G/DL) BY AUTOMATED 29.7 g/dL Low 32.0-35.0 [facility] Comment on above: Performed By: #### L [id number] #### [facility] [address] [place] [address] Hematocrit (Bld) [Volume fraction] 39.0 % Normal 39.0-55.0 [facility] Comment on above: Performed By: #### L [id number] #### [facility] [address] [place] [address] Hemoglobin (Bld) [Mass/Vol] 11.6 g/dL Low 13.0-17.0 [facility] Comment on above: Performed By: #### L [id number] #### [facility] ([facility]) [address] [place] [address] Immature granulocytes (Bld) [#/Vol] 0.01 10*3/uL Normal 0.00-0.20 [facility] Comment on above: Performed By: #### L [id number] #### [facility] (BEAKER) [address] [place] [address] Immature granulocytes/100 WBC (Bld) 0.1 % Normal 0.0-1.0 [facility] Comment on above: Performed By: #### L [id number] #### [facility] (BEAKER) [address] [place] [address] Lymphocytes (Bld) [#/Vol] 2.22 10*3/uL Normal 1.20-4.00 [facility] Comment on above: Performed By: #### L [id number] #### [facility] (BEAKER) [address] [place] [address] Lymphocytes/100 WBC (Bld) 27.2 % Normal 20.0-45.0 [facility] Comment on above: Performed By: #### L [id number] #### [facility] (BEAKER) [address] [facility] [place] [address] MCH (RBC) [Entitic mass] 21.3 pg Low 27.0-33.0 [facility] Comment on above: Performed By: #### L [id number] #### [facility] [address] [place] [address] MCV (RBC) [Entitic vol] 71.6 fL Low 82.0-98.0 [facility] Comment on above: Performed By: #### L [id number] #### [facility] ([facility]) [address] [place] [address] Monocytes (Bld) [#/Vol] 0.86 10*3/uL Normal 0.10-1.00 [facility] Comment on above: Performed By: #### L [id number] #### [facility] ([facility]) [address] [place] [address] Monocytes/100 WBC (Bld) 10.5 % Normal 5.0-12.0 [facility] Comment on above: Performed By: #### L [id number] #### [facility] ([facility]) [address] [place] [address] Neutrophils (Bld) [#/Vol] 4.88 10*3/uL Normal 1.60-7.60 [facility] Comment on above: Performed By: #### L [id number] #### [facility] ([facility]) [address] [place] [address] Neutrophils/100 WBC (Bld) 59.7 % Normal 40.0-72.0 [facility] Comment on above: Performed By: #### L [id number] #### [facility] ([facility]) [address] [place] [address] NRBC (PER 100 WBCS) BY AUTOMATED COUNT 0.0 % Normal 0 [facility] Comment on above: Performed By: #### L [id number] #### [facility] (BEAKER) [address] [place] [address] PLATELETS (10*3/UL) IN BLOOD AUTOMATED COUNT 326 10*3/uL Normal 150-400 [facility] Comment on above: Performed By: #### L [id number] #### [facility] ([facility]) [address] [place] [address] RBC (Bld) [#/Vol] 5.45 10*6/uL Normal 4.20-5.70 [facility] Comment on above: Performed By: #### L [id number] #### [facility] ([facility]) [address] [place] [address] WBC (Bld) [#/Vol] 8.17 10*3/uL Normal 4.00-10.60 [facility] Comment on above: Performed By: #### L [id number] #### [facility] ([facility]) [address] [place] [address] COMPREHENSIVE METABOLIC PANE Daniel 11-03-2024 Albumin [Mass/Vol] 4.0 g/dL Normal 3.5-5.7 [facility] Comment on above: Performed By: #### L [id number] ####[facility] ([facility])[address] [place] [address] ALP [Catalytic activity/Vol] 59 U/L Normal 34-104 [facility] Comment on above: Performed By: #### L [id number] ####[facility] ([facility])[address] [place] [address] ALT [Catalytic activity/Vol] 14 U/L Normal 7-52 [facility] Comment on above: Performed By: #### L [id number] ####[facility] ([facility] [place] [address] Anion gap [Moles/Vol] 12 mmol/L Normal 7-20 [facility] Comment on above: Performed By: #### L [id number] ####[facility] ([facility])[address] [place] [address] AST [Catalytic activity/Vol] 14 U/L Normal 13-39 [facility] Comment on above: Performed By: #### L [id number] ####[facility] (BEAKER)[address] [place] [address] Bilirubin [Mass/Vol] 0.4 mg/dL Normal 0.3-1.0 [facility] Comment on above: Performed By: #### L [id number] ####[facility] (BEAKER)[address] [place] [address] Calcium [Mass/Vol] 9.0 mg/dL Normal 8.6-10.3 [facility] Comment on above: Performed By: #### L [id number] ####[facility] (BEAKER)[address] [place] [address] Chloride [Moles/Vol] 104 mmol/L Normal 98-107 [facility] Comment on above: Performed By: #### L [id number] ####[facility] (BEAKER)[address] [place] [address] CO2 [Moles/Vol] 24 mmol/L Normal 21-[address] [facility] Comment on above: Performed By: #### L [id number] ####[facility] (BEAKER)[address] [place] [address] Creatinine [Mass/Vol] 1.11 mg/dL Normal 0.70-1.30 [facility] Comment on above: Performed By: #### L [id number] ####[facility] ([facility] [place] [address] GLOMERULAR FILTRATION RATE ML/MIN/1.73 SQ M.PREDICTED 75.5 mL/min/1.73m*2 Normal >60.0 [facility] Comment on above: Result Comment: [facility]???s estimated glomerular filtration rate (eGFR) [...] of individuals. Performed By: #### L [id number] ####[facility] ([facility] [place] [address] Glucose [Mass/Vol] 101 mg/dL High 70-100 [facility] Comment on above: Performed By: #### L [id number] ####[facility] ([facility])[address] [place] [address] Potassium [Moles/Vol] 3.8 mmol/L Normal 3.5-5.1 [facility] Comment on above: Performed By: #### L [id number] ####[facility] ([facility])[address] [place] [address] Protein [Mass/Vol] 6.7 g/dL Normal 6.0-8.3 [facility] Comment on above: Performed By: #### L [id number] ####[facility] ([facility])[address] [place] [address] Sodium [Moles/Vol] 136 mmol/L Normal 136-145 [facility] Comment on above: Performed By: #### L [id number] ####[facility] ([facility])[address] [place] [address] Urea nitrogen [Mass/Vol] 21 mg/dL Normal 7-25 [facility] Comment on above: Performed By: #### L [id number] ####[facility] ([facility])[address] [place] [address] UREA NITROGEN/CREATININE (MASS RATIO) IN SER/PLAS 18.9 Normal [facility] Comment on above: Performed By: #### L [id number] ####[facility] ([facility])[address] [facility] [place] [address] LACTIC ACID, PLASMAon 2024 LACTATE (MMOL/L) IN SER/PLAS 0.9 mmol/L Normal 0.5-2.2 [facility] Comment on above: Performed By: #### L [id number] #### [facility] ([facility] [address] [place] [address] MAGNESIUMon 11-03-2024 Magnesium [Mass/Vol] 1.8 mg/dL Low 1.9-2.7 [facility] Comment on above: Performed By: #### L [id number] #### [facility] (BEAKER) [address] [place] [place] [address] Office Visiton 11-03-2024 Follow-up visit [id number] Doris Luis 1965 M Date Provider Department Center 11/03/2024 271-DAGOBERTO CORMIER CARD [facility] Family History Problem Relation Age of Onset Coronary artery disease Mother Coronary artery disease Father Family Status - Relation Status Age at Mother Father Level of Service:[address] [place] OFFICE/OUTPATIENT ESTABLISHED HIGH MDM 40 MIN Normal [facility] PHOSPHORUSon 11-03-2024 Magnesium [Mass/Vol] 3.2 mg/dL Normal 2.5-5.0 [facility] Comment on above: Performed By: #### L [id number] #### [facility] (BEAKER) [address] [place] [place] [address] PROTIME-INRon 11-03-2024 INR IN PPP BY COAGULATION ASSAY 2.45 High 0.90-1.10 [facility] Comment on above: Result Comment: [facility] FOR WARFARIN THERAPY CONDITION [...] RANGE. CHEST 1995;108:231S-246S. Performed By: #### L [id number] #### [facility] ([facility]) [address] [place] [address] PROTHROMBIN TIME (PT) IN PPP BY COAGULATION ASSAY 26.0 Seconds High 12.3-14.8 [facility] Comment on above: Performed By: #### L [id number] #### [facility] ([facility]) [address] [place] [address] TROPONIN Ion 11-03-2024 Troponin I.cardiac [Mass/Vol] 0.03 ng/mL Normal 0.00-0.04 [facility] Comment on above: Performed By: #### L [id number] #### [facility] ([facility]) [address] [place] [address] Office Visiton 08-03-2024 Follow-up visit [id number] Doris Luis 1965 M Date Provider Department Center 08/03/2024 JASVIR RM CARD [facility] Family History Problem Relation Age of Onset Coronary artery disease Mother Coronary artery disease Father Family Status - Relation Status Age at Mother Father Level of Service:[address] [place] OFFICE/OUTPATIENT ESTABLISHED MOD MDM 30 MIN Reason for Visit and Comments: Coronary Artery Disease [187] Hypertension [360641] Hyperlipidemia [182] Normal [facility] Ambulatory Visit Summaryon 0 02-10-2024 [...] Cardiac catheterization, Cataract extraction, Excision of lipoma, Odell filter, History of lumbar spine surgery, Meniscal [...] for choosing us for your care. Normal [facility] Formson 12-31-2023 Forms [id number]#1 .00TIFF Normal [facility] CHEMISTRYOrdered By: SYSTEM SYSTEM on 12-30-2023 [...] used for this result was chemiluminescence using [employer]'s Access Hybritech PSA reagent. PSA Screen, Totalon 12-30-19 Prostate specific Ag [Mass/Vol] 1.7 ng/mL Normal 0.1-3.5 [facility] Comment on above: Result Comment: The concentration of PSA determined by different manufacturers can vary due to differences in assay methods and reagent specificity. Values obtained from different assay methods cannot be used interchangeably. The methodology used for this result was chemiluminescence using [employer]'s Access Hybritech PSA reagent. Performed By: #### 1 [id number] ####[facility] [id number] [place] [id number] Patient Education 12-30-19 Patient Education Nephrology Dietary Guidelines to [...] Spinach (cooked), rhubarb, beets, sweet potatoes, and Israeli chard. ? Peanuts. ? Potato chips, nauruan fries, and baked potatoes with skin on. ? Nuts and nut products. ? Chocolate. ? If you regularly take a diuretic medicine, make sure to eat at least 1 or 2 servings of fruits or vegetables that are high in potassium each day. These include: ? Avocado. ? Banana. ? [place], prune, carrot, or tomato juice. ? Baked [...] fish oil, or vitamin B6. ? Take lwgx-yfp-tqluwha and prescription medicines only as told by your health care provider. These include supplements. What foods sh (more content not included)... Normal [facility] Urology Office/Clinic Noteon 12-30-2023 Urology Office/Clinic Note Chief Complaint 6 mo f/u w/ Renal US HPI Staff Former DLS pt 6m MAKENNA & PSA (pt RS'd) DX: Kidney Stone, BPH & Renal Cyst *No Urology Meds Last Tx'd for stones in 2021 Stone Analysis 02/18/23 ([facility]) *Uric Acid KUB 03/12/23 Metabolic Work Up [...] resolved when stone passed. Stone Analysis 02/18/23 ([facility]) *Uric Acid MAKENNA 12/13/23 - 2 mm [...] In 1 year Additional Instructions: w/PSA EDGAR NAVA PA-C, URL [address] [place] [address] Additional Instructions: XIOMARA England APRN, Elsy Skaggs, [...] Excision of (more content not included)... Normal [facility] Comment on above: Result Comment: Elec tronically Signed By: XIOMARA England APRN, [place] X\.br\Date and Time Signed: 12/30/23 12:27 EDT\.br\Electronically Co-Signed By: EDGAR NAVA PA-C RAD - Ultrasound Reporton RAD - Ultrasound Report [id number]#1 .00TIFF Normal [facility] Outside Colonoscopyon 2022 Outside Colonoscopy [id number]#1 .00TIFF Normal [facility] Reminderson 09-18-2023 Reminders - From: Delilah Fink LPN To: GSN - Clinical; Sent: 09/18/2023 12:45:06 EST Show up: 08/18/2033 07:00:00 EST Subject: colonoscopy recall Due Date/Time: 09/17/2033 07:00:00 EST Reminder/Recall Patient due for screening colonoscopy 09/17/2033. [facility] Reminderson 09-12-2023 Reminders - From: Aisha Zelaya [...] states pt is scheduled 09/19/23 @ 0900. [facility] Physician Referralon 023 Physician Referral [id number]#1 .00TIFF [facility] Consent for Procedure/Surger yon 09-01-2023 Consent for Procedure/Surgery [id number]# 1.00TIFF Martha [facility] Ambulatory Visit Summaryon 1 10-30-2022 Ambulatory Visit Summary DORIS LUIS :1965 Visit Date:08/29/2023 Ambulatory Visit Instructions Your Care Team Attending Physician - Jamil DE LUNA MD Primary Care Physician - Delon Caballero MD [...] Cardiac catheterization, Cataract extraction, Excision of lipoma, Odell filter, History of lumbar spine surgery, Meniscal repair, Thrombectomy, Tonsillectomy. Discharge Vitals Heart Rate (Peripheral) 72 Respiratory Rate 16 Blood Pressure 126/78 Height 177.8 cm Height 70 in Weight 106.8 kg Weight 234.96 lb BMI 33.78 What to do next Scheduled Follow-Up Appointments Friday 2:30 PM EST With: EDGAR NAVA PA-C Where: [facility] Physician Referralon 023 Physician Referral [id number]#1 .00TIFF [facility] Physician Referralon 023 Physician Referral [id number]#1. 00TIFF [facility] Physician Referralon 023 Physician Referral [id number]#1 .00TIFF [facility] Lab Reportson 03-21-2023 Lab Reports [id number]#1 .00CD:127 [facility] Lab Reports [id number]#1. 00CD:127 [facility] RAD - MISCon 03-21-2023 RAD - MISC [id number]#1 .00CD:127 [facility] Lab Reportson 03-18-2023 Lab Reports [id number]#1 .00CD:127 [facility] Lab Reports [id number]#1 .00CD:127 [facility] Ambulatory Visit Summaryon 0 03-12-2023 Ambulatory Visit Summary ABIGAILMARIETTADORIS :1965 Visit Date:03/12/2023 Ambulatory Visit Instructions Your Care Team Attending Physician - ANNAMARIE ISRAEL, Jamil Braun Primary Care Physician - Iris ISRAEL, Delon This Is Your Medications List [...] pyelography (07/06/2014), Hemorrhoidectomy (2009), Excision of lipoma, Odell filter, History of lumbar spine surgery, Meniscal repair, Tonsillectomy. Discharge Vitals Heart Rate (Peripheral) 72 Respiratory Rate 16 Blood Pressure 126/78 Height 177.8 cm Height 70 in Weight 105 kg Weight 231 lb BMI 33.21 What to do next Scheduled Follow-Up Appointments Friday 10:00 AM EST With: EDGAR NAVA PA-C Where: [facility] Historical Records Officeon 03-10-2023 Historical Records Office [id number]#1 .00CD:127 [facility] Coding Summaryon 02-28-2023 Coding Summary HTMLBase 64 IswqzhidAMi0oPr+PGhlY WQ+AD2RLVVeL98djAPfjN 3dB8UEWYjMZaavXCPQPPt SAmCfzxIpYV6ciUTcEWSa IC8+II3eCVDnBddpgNRqf 9P0xVD7S29zrg9jSZxvdR E0FRNcPrIauwqek4htsCx 6IDcuNmluOyBt RLLahZ51TTY1mZ15Yt70c QWmkUGhi9nsnIb0ElTlFE KkEEH4kBirTGovl6AuEBO xD37cpKVhl6W2 AZAsxPazeGTdWcJqqRD3l S4wTBcglhkwl3hjkijcXj e9kg87oPGrr3B7dKB6J2E rzmR0YXQomXOv YqaysUOBtK8yjjuwo1zam rhcXuQtGQPfUEx0RZt3CJ OunAqjXjBfAR79JEM6OZV dusCcK8VxMCDe jIlpPqS1e3Q1Ie8RR7CVE couJ0LTKGRADUhnpKK+PC 66ho92D7GdEjdhTwb7HAI mFCP8bCH0hZ8b VIUmYRbnm5V4eFQ5Z9Gzw tYzlv4pu2opCWErNPukA0 3bfTBlm5M9DLEyjRS2WVH mtIbuTlIfcP36 Oyc+AAYhiTphy3FqGgatx 5vou3pdjYm2FsutBKKybl IihHriVMF9a7CmIu3bOHA joZY1zOR5nU9v AxXpHyM6ASpnO983JoPmv KXvHjdhJ78gT8TvkSC+PH NvSdl7KRGkzKqqCX7nD2T hZGRpbmctbGVm bHdeSM2bPRVsmnewIOVnu K1jLNMpU4r3ZqSfXgE0IK atS7WmHOQznylcNa53eD8 aMfHdKbG4MAcv E1YrdmT1ZYEqcYObJXtnE FW3M82td2A6KBCuIHJxDO D1ySN1eP7lcIylhmefkEF mdDsgdmVydGlj TBeiUYljC602WQAkiGyuS kNvZGluZyBEYXRlOiAgMD YvMDIvMjAyMzwvdGQ+PHR lJWS4zNfjFMFq vZPgPSblEi6ozApiqEduU Z1tOCDceepmUHUcxD9vNH UcqCNlzGugHF7kKAMaedy av195ZjFfJKW4 TGMnqSBoR0BrtI2eKnCcN NEpSNGtN9ZvbYLgXEjkY2 43XIkxUcX6KSBnuoCgF5T sLWFsaWduOiB0 h6Y0Ny4Dm9BnfccoG6Eog PFbPeQkIzbqEAv9B6HgIj wvdHI+IM13UFZyQX58IQy 5ABN6jYtmYQkw SOOcD3JzzZ9vYpNgDMJmB GRkOyc+PHRhYmxlIHdpZH RoPScxMDAlJyBzdHlsZT0 oIy6vWUWdTLSe rZuziJPbLsShu7vuIUJzN ChmOK9uvRqdO9BtoZN2YF Uqj6m7Ew24V58zH9DcaTL +YSOsbTJ9wEE8 pH4qKqWuRaP8LSpiY933Z rDqlDOlYrewf4pym6lquX x7ZaW6JPPevqFcxAbjARU 5m6MfGd48C87g IHdpZHRoPSIxNSUiIHZhb Ekynh5ejA5mJu7+PGNvbC E0kBF2cR3uTrPaQbU3RGv jD297CaWozJTh Irwwz9jus9visGl1ObPxV UJhdlOghKsrAMG2s1FhQw 45Q2BqsZsvr8GcNfg6yq5 5qCSms5Z8lIQ5 W5GjSGQwzzwfaYMuoXtnE W0ySJCcmnxpIGTwjK0kPO UkP2m8IyUdWnH4RWheK5E xlmM6LMRklVJo IXEgfVFTrV3juamwl3vqi hguWjYvXAEfWNl3XAo6DB AfpQniJqIoBWH6DyL0VWU 9kLIcvX7shGnv baafaT9kHrb+CJJ0yTShj ZEWBF3fHgfceEL+PHRkIH Z3tNjlPZpySKGtpH8gHAF eQ5y5UrDzIqI6 EDmgK5PdsiN8XGShhRMpP OGtyAYBxK1lhseko9cdul xhVyKxNQMaTLx2PBi0RVE saWduOiBsZWZ0 LsE5GJM1hNHxvH6cmPcjz dadkR9qVdd+QmlydGggRG R7CGu5B6NeNxi6QANtfOq eOJ3ipJYxMPml Ml1keUqvhSyvLD2dZUGaq rbgx626CxKqw9cyBFEjlI LfAKmkMMA2V27di3W0TDR pSBYzKQO0zQD9 mX0jrFnhbwjwbOZeaQnqe gOljAsuZBikWTsgV890TN XsfHhvNuTmBJh2N4YsYwd 6QZVbqHrnBD6i wKZcAOnwMy5twJndhGeqZ P4bMAUedzgsk012OtJtz6 zyJHOctURpZYboPNN7L60 xa7Q8NQPpUMDy ZMH2uSM6cQ1bqNelrrgwg GVmdDsgdmVydGljYWwtYW dbY677PNHydJdoQhVdhDe 2P2RuFpt0BCHs nSkgBL6jgTZvKAblYv1ri ScbdHnqKM1aCSFuphand1 46LyUzw5irAAOmiLTyWOb wRTS8P85km9X1 ZLUcQIQeHML3nRA2nN1ym GlnbjogbGVmdDsgdmVydG pxREzbYDrrJ434MHVinMa nPlBhdGllbnQg LRlrVBu1X4QpKudarPE+P C10RDUsYN86iMKreDPil2 tnnMp6WkNtGBUgGNA0eHf wQEcqt3XyBHMg S65ewXGdc6E6UZPdpZqir PRoKyQpmRF2aW0gMWzkar icw9vvhsveIdqjb5kwhw9 4eY34A72vQEix ZHRoPSIzMCUiIHZhbGlnb f7wdQ5gBm3+WHTwvMH9sX R1kR6oCQTgQwA5WWfrQ54 9InRvcCIvPjxj o3hph4wnjWx7EtE8SOMsj jHtjLfwEMK9n1LcDj87O5 9sIHdpZHRoPSIyMCUiIHZ dlHmuzm2kgP4s Ii8+IJFndFY2tTI1xY2mR oLuZdE2WCnmT401FrGweJ LeIitlU47iE9SulFL+PHR eWnj5GRXwxPff GR2wpJNpDUvqDg2rFWY2R pHaEqKfEVpcK7ZnPVMenx hsyazptZU6TDSgVMWzrW4 9Qq1ifFnkZZUl eBMJdJ7aykagx7ecvkexS zLcTDRxXDn5NEg9IFDlbQ xhPzGiRDN7YcB2OGC1bFQ mjZ3wcOsifngu xU6hY8EaLDZsndgyHm04d H3aCqPdAgQ1ZYzsZmd+SE NJX5VBOQOHRHEVCBCTVJL JZ2UCFSednPU+ PUSxHQM6eLpkFEycRTWlb I0eQUVcQ0p7QxCjGaB1GD vsH9XzEERzyegbOt59wG0 bCwRcAnN9JSlk L3VxluD3SEZxmJYlFMgmN DE5Q73jy3G0JFUjJZQyUK C7uGC5vA5yfRrkthwpfDH mdDsgdmVydGlj SCguJUrgT668RPWkePcqS eX4PxG4PjD5MnH2Q6HcFu d5BTQmtEfsPP7qzTDwFRc gBx0gfOyteTwi OT1kDLOnyhllNHZupC3hH XRycAGabJbfFD6gDFXhxr eyb109IuFvLHS0FHRawQJ zL0OykD5eNoFn CUUxQMEpS5WwoHPyFGruA 573AJdbFjF9IVLpbtHxG4 WxKWKcgBvuAbR1g1V5Ok3 1OSBZZWFyczwv dGQ+ESGoVIY6eLodSMvlG SUtaU7vCKLzJ8g5XuEwBa P6QAifH9PeFCDoecidQi6 2sK1lVvMzObI1 OVwlM8RvduP5NHOwxWFoP SgdTMS3T85rs7P9DJVqCH OtDGB2uKX2yG1waEbaiak gbGVmdDsgdmVy hBgkTVgnHKxuR693PJZip OdlTr7WFRD1T2UqIdd5DU VurVpaVW6jcLSsJSlnAa3 wbOrfvTvdSO4w XOFxeinsJAPukD5xLRHcu LZlqOpnFP6kIAZbuucip3 37MpJxVTH4VIBylLIwL0L gzO5xAlRoTSUh BTWaU1WugLRhMJhdO530W WnwIxF7VRWnzpVuV4OtNX TjlOksVdB8z8N2Ge9VQEf vdGQ+FP53hn89 S8DhPehxOce6MZBgYKB6h WJ8iP2tQSMuPXovn4F0tA Q1B7MgxpEolh3fm9rkBJP gDGzbA56frOXq g4I7YATfrNT4ANDbvUydC mOjlY04Rzm+PGNvbGdyb3 VnUluqs5tho3dwvIu4PdD wJSIgdmFsaWdu BKS6j6CfUy92K37dHDadP HRoPSIzMCUiIHZhbGlnbj 8zzG9zJh2+XRJtnLP2iTB 0jP0hCsIxIoM9 RXwrE906ZjXmdTOgMnmjp 3kuj2ovpKl4ZaMmNMCclt EueMkaUIJ0x5XvIy48I5N ohMmeg3EnYqv3 au45eFOva8B9zOL2M9CtI VZtapoduJQfsCwiIL7dNI BymyiqNVBplW8nNWJuF8f 2TrUwMcW0NMhl X3XbaiK5PSFhlBHfBKAts CZWvK4gnhfkp7omlbvxCa WjRMEyEGi8XMp7VIBucLr bNjKxPXP1PqD9 PGX3uDEonY7flKsknbead G9wOyc+CQk0h3thgMKgGD 0ibWX9PP01IA80zCIga5C 1dLG1W1SlPWHc abbugiekmJD0VXOxPZEnn R69Az2cqZecAi7xPGGhWD W2SGLujHYbW4ZxyO4uSiO rFDLhJCGjJ6Ba oPFhHIsmJ668PTmeNfW9F QLlfyIhK6KuNJGuyJtwCz U0e2E9Ao1HWI28RG64ID2 0mIHej2O5pKT5 W6LfOFGatqucjvhkgCA8O JAcDEEstA35Dl7drUqiWv 3sLNYxJPE1IZNzqUNbE9H ddS4eDoFhRVXj WSGgS2SmqHXvTUrpT551C NdhWvW4AZPyvpGhC6TqAA DrxHqmByU6u4V3Xq1ZHm3 8QO48FT52nGSj a3Y0xFU6G0ZfLELzsmnbs ynltUR9KILdXHHhcY11Vx 3mjQveBo7hKVXqEJX1NWS vtDZhY0WwdB1e WgEnPTHtAZOpN7CxeFBkE AlhB207SAiaEyL0OWDpqm XwG4LlVYShrFpdUlM5r4O 1Fq6MWPrqzvh1 U8HeKljuwWE+IZ91YZNcE W20aLVnwRYfx3fxyOq1Wm MkEVSdGWE4bQvtKTais8Q pTXLbY86kzMFy c2U (more content not included)... Normal [facility] Calculus Analysison 02-27-20 23 Color (Stone) [place] Invalid Interpretation Code [facility] Comment on above: Performed By: #### 1 [id number] ####[facility] [address] [place] [address] Composition Comment Invalid Interpretation Code [facility] Comment on above: Result Comment: Perc entage (Represents the % composition) Performed By: #### 1 [id number] ####[facility] [address] [place] [address] Disclaimer: Comment Invalid Interpretation Code [facility] Comment on above: Result Comment: This test was developed and its performance characteristics determined by [facility]. It has not been cleared or approved by the Food and Drug Administration. Performed at: [facility] [employer] Stone Analysis [address] [place] [address] [address] [place], [place] [phone] PhD Sahra Helton Performed By: #### 1 [id number] ####[facility] [address] [place] [address] Laboratory comment Lazaro (Report) Comment Invalid Interpretation Code [facility] Comment on above: Result Comment: Trav nguyen questions regarding Calculi Analysis contact [facility] at: [phone]. Performed By: #### 1 [id number] ####[facility] [address] [place] [address] Please Note: Comment Invalid Interpretation Code [facility] Comment on above: Result Comment: Calc cheikh report will follow via computer, mail or art studio teacher delivery. Performed By: #### 1 [id number] ####[facility] [address] [place] [address] Size (Stone) [Entitic vol] 3x5 Invalid Interpretation Code [facility] Comment on above: Result Comment: Sing le piece received. Performed By: #### 1 [id number] ####[facility] [address] [place] [address] Specimen source subject Nom Comment Invalid Interpretation Code [facility] Comment on above: Result Comment: Not provided Performed By: #### 1 [id number] ####[facility] [address] [place] [address] Stone Photo Comment Invalid Interpretation Code [facility] Comment on above: Result Comment: Phot ograph will follow under a separate cover Performed By: #### 1 [id number] ####[facility] [address] [place] [address] Urate (Stone) [Mass fraction] 100 % Invalid Interpretation Code [facility] Comment on above: Performed By: #### 1 [id number] ####[facility] [address] [place] [address] Weight (Stone) 35 mg Invalid Interpretation Code [facility] Comment on above: Performed By: #### 1 [id number] ####[facility] [address] [place] [address] ED Clinical Summaryon 2022 ED Clinical Summary [facility] [address] [place], [place] [address] Clinical Summary PERSON INFORMATION Name: DORIS LUIS Age: 57 Years Sex: MALE : 1965 MRN: Acct#: Visit Reason: Skin problem; FISH HOOK LT THIGH Arrival: 02/26/2023 14:18:24 Discharge: 02/26/2023 15:11:00 LOS: 000 00:53 Check In: 02/26/2023 14:18:24 Checkout: 02/26/2023 15:11:00 Address: [address] [place] [address] PCP: DELON CABALLERO PROVIDER INFORMATION Provider Role Assigned Unassigned ALFIE SLAUGHTER ED PA 02/26/2023 14:20:09 Ivan Pringle AIRCRAFT MAINTENANCE MANAGER Nurse 02/26/2023 14:20:24 Asya Luther AIRCRAFT MAINTENANCE MANAGER Nurse 02/26/2023 14:30:49 VITALS INFORMATION Vital Sign [...] distress: No -Vitals: reviewed. SKIN: -Gross abnormalities: [place] appreciated in the left medial lower thigh just above the knee NECK: -Supple (rutp-rc-qbylp): non-tender. CARD: -Rate and rhythm: Regular RESP: [...] Fish hook injury of left lower leg (USP21-VM S89.92XA). Orders Orders Patient Care: Wound Care [...] Follow-Up: With: Address: When: DELON CABALLERO [address] [facility] [address] [place], [place] [id number] Business (1) Within 3 to 5 days DIAGNOSIS: Fish hook injury of left lower leg Patient Understands: Yes - Patient/family/caregi josee verbalizes understanding of instructions given Comment: [facility] ED Note - Physicianon 2022 ED [...] distress: No -Vitals: reviewed. SKIN: -Gross abnormalities: [place] appreciated in the left medial lower thigh just above the knee NECK: -Supple (hbnp-xm-gnuht): non-tender. CARD: -Rate and rhythm: Regular RESP: [...] Fish hook injury of left lower leg (JME71-PB S89.92XA). Orders Orders Patient Care: Wound Care [...] on: 02/26/2023 14:57 EDT] ALFIE SLAUGHTER Normal [facility] ED Patient Summaryon [address] [facility] ? [facility] [address] [place], [place] [address] PATIENT DISCHARGE INSTRUCTIONS Patient Information Name: DORIS LUIS Age: 57 Years Date of : 1965 Reason For Visit: Skin problem; FISH HOOK LT THIGH Arrival Time: 02/26/2023 14:18:24 Primary Care Physician: DELON CABALLERO Attending Physician: ALFIE SLAUGHTER Comment: Patient Education With: Address: When: DELON CABALLERO [address] [place] [address], [facility] [place] [address] Business (1) Within 3 to [...] at home: Medicines ? Take or apply ghjj-wka-qlemnci and prescription medicines only as told by [...] and water are not available, use hand mailroom coordinator. ? Change your dressing as told by [...] washing o (more content not included)... Normal [facility] Rec[address] [facility] ? Urgent Care [address] [place], [place] [address] PATIENT DISCHARGE INSTRUCTIONS Patient Information Name: DORIS LUIS Age: 57 Years Date of : 1965 [facility]: [id number] Reason For Visit: Skin problem; FISH HOOK LT THIGH Arrival Time: 02/26/2023 14:18:24 Primary Care Physician: DELON CABALLERO Attending Physician: ALFIE SLAUGHTER Comment: Visit Diagnosis: Diagnoses This Visit Fish hook injury of left lower leg (S89.92XA) Skin problem ([id number]) If you received any narcotics, sedation, or [...] legal documents With: Address: When: DELON CABALLERO [address] [place] [address] [address] [place] [id number] Business (1) Within 3 to 5 days Medication Information: The exam and treatment you received today in the [facility] were for an urgent problem and are not intended as complete care. It is important for you to follow up with a doctor, nurse practitioner, or physician?s assistant education director for ongoing care. If your symptoms become [...] so we can reach you if necessary. [facility] has provided you with a complete list of medications post discharge. Please inform your brake lining curer/provider of your visit and for further instruction [...] washing out the (more content not included)... [facility] Historical Records Officeon 02-20-2023 Historical Records Office [id number] .[id number]:127 [facility] Physician Referralon 023 Physician Referral [id number] .00CD:127 [facility] Ambulatory Visit Summaryon 0 02-18-2023 Ambulatory Visit Summary DORIS LUIS :1965 Visit Date:02/18/2023 Ambulatory Visit Instructions Your Diagnosis Kidney stone Prostate cancer screening BPH without obstruction/lower urinary tract symptoms Renal cyst Tests Performed Urnls Dip Stick Auto w/o Microscopy POC 47364 US Renal -- Results Pending -- Please visit your patient portal for your results or contact your primary care physician. Your Care Team Attending Physician - EDGAR NAVA PA-C Primary Care Physician - Delon Caballero [...] Cystoscopy and retrograde pyelography (07/06/2014), Back care, Odell filter, Hemorrhoidectomy, History of knee surgery, Tonsillectomy. Discharge Vitals Heart Rate (Peripheral) 68 Respiratory Rate 16 Blood Pressure 130/72 Height 178 cm Height 70 in Weight 106 kg Weight 233.2 lb BMI 33.46 What to do next Scheduled Follow-Up Appointments Friday 10:00 AM EST With: EDGAR NAVA PA-C Where: [facility] Patient Educationon 02-19-20 Patient [...] these instructions at home: Medicines ? Take qloq-hlh-dbguzpk and prescription medicines only as told by [...] provider. Document Revised: 05/20/2022 Document Reviewed: 05/20/2022 [employer] Patient Education ? 2022 [employer]. [facility] Office/Clinic Noteon 02-18-2023 Urology Office/Clinic Note [...] E&M of Est. Patient Moderate 30-39 Min 50256 PSA Total Urnls Dip Stick Auto w/o Microscopy POC 48944 US Renal 2. Prostate cancer screening (Z12.5: Encounter for screening for malignant neoplasm of prostate) PSA 07/03/22 - 1.36 will need repeat this fall. order placed. No additional PSA in [facility] system (gets labs annually for PCP but doesn't look like this was included). Ordered: E&M of Est. Patient Moderate 30-39 Min 14267 PSA Total 3. BPH without obstruction/lower urinary tract symptoms (N40.0: Benign prostatic hyperplasia without lower urinary tract symptoms) Pt is currently taking no bladder/prostate medication and is highly satisfied with overall symptom control. No indication for treatment at this time. Continue to monitor. Ordered: E&M of Est. Patient Moderate 30-39 Min 34228 PSA Total 4. Renal cyst (N28.1: Cyst of kidney, acquired) Pt's Renal US shows bilat simple cysts, largest 6cm on right. Ordered: E&M of Est. Patient Moderate 30-39 Min 52419 PSA Total f/u 6 mos w MAKENNA and PSA prior Follow-up With When Contact Information ELIJAH ALLEN, EDGAR [place], URL Within 6 months [address] [place] [address] [facility] (1) Additional Instructions: Patient Education Kidney Stones, Ldyh-ty-Gxvg Problem List/Past Medical History Ongoing Anticoagulated Anxiety [...] Cystoscopy and retrograde pyelography (07/06/2014), Back care, Odell filter, Hemorrhoidectomy, History of knee surgery, Tonsillectomy. [...] 1 cap(s), (more content not included)... Normal [facility] Comment on above: Result Comment: Elec tronically Signed By: ELIJAH ALLEN, EDGAR Paniagua\.dixie\Date and Time Signed: 02/18/23 15:31 EDT CBC AUTO DIFFon 01-31-2023 BASO # 0.1 103/ul Normal 0.0-0.1 [facility] Comment on above: Performed By: #### P T #### [facility] [address] [place] [address] Dr. Curly Connell Basophils/100 WBC (Bld) 0.9 % Normal 0.2-2.0 [facility] Comment on above: Performed By: #### P T #### [facility] [address] [place] [address] Dr. Curly Connell EO # 0.1 103/ul Normal 0.0-0.7 [facility] Comment on above: Performed By: #### P T #### [facility] [address] [place] [address] Dr. Curly Connell Eosinophils/100 WBC (Bld) 1.2 % Normal 0.9-7.0 [facility] Comment on above: Performed By: #### P T #### [facility] [address] [place] [address] Dr. Curly Connell Erythrocyte distribution width (RBC) [Ratio] 19.1 % Critically high 11.0-15.0 [facility] Comment on above: Performed By: #### P T #### [facility] [address] [place] [address] Dr. Curly Connell Hematocrit (Bld) [Volume fraction] 42.3 % Normal 42.0-54.0 [facility] Comment on above: Performed By: #### P T #### [facility] [address] [place] [address] Dr. Curly Connell Hemoglobin (Bld) [Mass/Vol] 12.1 g/dL Critically low 14.0-18.0 [facility] Comment on above: Performed By: #### P T #### [facility] [address] [place] [address] Dr. Curly Connell IG # 0.02 10e3/ul Normal 0.00-0.03 [facility] Comment on above: Performed By: #### P T #### [facility] [address] [place] [address] Dr. Curly Connell IG % 0.2 % Normal 0.0-0.5 [facility] Comment on above: Performed By: #### P T #### [facility] [address] [place] [address] Dr. Curly Connell LYMPH # 2.2 103/ul Normal 1.2-3.8 [facility] Comment on above: Performed By: #### P T #### [facility] [address] [place] [address] Dr. Curly Connell Lymphocytes/100 WBC (Bld) 24.3 % Normal 20.5-60.0 [facility] Comment on above: Performed By: #### P T #### [facility] [address] [place] [address] Dr. Curly Connell MANUAL DIFF REQ NO Normal [facility] Comment on above: Performed By: #### P T #### [facility] [address] [place] [address] Dr. Curly Connell MCH (RBC) [Entitic mass] 21.1 pg Critically low 25.9-34.0 [facility] Comment on above: Performed By: #### P T #### [facility] [address] [place] [address] Dr. Curly Connell MCHC (RBC) [Mass/Vol] 28.6 g/dL Critically low 29.9-35.2 [facility] Comment on above: Performed By: #### P T #### [facility] [address] [place] [address] Dr. Curly Connell MCV (RBC) [Entitic vol] 73.8 fL Critically low 80.0-94.0 [facility] Comment on above: Performed By: #### P T #### [facility] [address] [place] [address] Dr. Curly Connell MONO # 0.8 103/ul Normal 0.3-0.8 [facility] Comment on above: Performed By: #### P T #### [facility] [address] [place] [address] Dr. Curly Connell Monocytes/100 WBC (Bld) 9.2 % Normal 1.7-12.0 [facility] Comment on above: Performed By: #### P T #### [facility] [address] [place] [address] Dr. Curly Connell NEUT # 5.9 103/ul Normal 1.4-6.5 [facility] Comment on above: Performed By: #### P T #### [facility] [address] [place] [address] Dr. Curly Connell Neutrophils/100 WBC (Bld) 64.2 % Normal 43.0-75.0 [facility] Comment on above: Performed By: #### P T #### [facility] [address] [place] [address] Dr. Curly Connell Platelet mean volume (Bld) [Entitic vol] 10.0 fL Normal 9.5-13.5 [facility] Comment on above: Performed By: #### P T #### [facility] [address] [place] [address] Dr. Curly Connell PLT 340 103/ul Normal 150-450 [facility] Comment on above: Performed By: #### P T #### [facility] [address] [place] [address] Dr. Curly Connell RBC 5.73 106/ul Normal 4.70-6.10 [facility] Comment on above: Performed By: #### P T #### [facility] [address] [place] [address] Dr. Curly Connell WBC 9.1 103/ul Normal 4.0-11.0 [facility] Comment on above: Performed By: #### P T #### [facility] [address] [place] [address] Dr. Curly Connell GLYCOHEMOGLOBIN A1Con 2022 ADA RECOMMENDATION SEE BELOW Normal [facility] Comment on above: Result Comment: ADA RECOMMENDED LIMIT 4.0 - 6.0 ADA THERAPEUTIC TARGET < 7.0 ACTION SUGGESTED > 7.0 Performed By: #### P T #### [facility] [address] [place] [address] [address] Curly Connell Glucose [Mass/Vol] 151 mg/dL Normal [facility] Comment on above: Performed By: #### P T #### [facility] [address] [place] [address] Dr. Curly Connell HbA1c (Bld) [Mass fraction] 6.9 % Critically high 4.5-6.2 [facility] Comment on above: Performed By: #### P T #### [facility] [address] [place] [address] Dr. Curly Connell LIPID PROFILEon 01-31-2023 CHOL-HDL RATIO NORM SEE BELOW Normal [facility] Comment on above: Result Comment: 3.3 - 4.4 LOW RISK 4.4 - 7.1 AVERAGE RISK 7.1 - 11.0 MODERATE RISK >11.0 HIGH RISK Performed By: #### P T #### [facility] [address] [place] [address] Dr. Curly Connell Cholesterol [Mass/Vol] 149 mg/dL Normal <=200 [facility] Comment on above: Performed By: #### P T #### [facility] [address] [place] [address] Dr. Curly Connell Cholesterol in HDL [Mass/Vol] 41 mg/dL Normal 40-60 [facility] Comment on above: Performed By: #### P T #### [facility] [address] [place] [address] Dr. Curly Connell Cholesterol in LDL [Mass/Vol] 77.8 mg/dL Normal [facility] Comment on above: Performed By: #### P T #### [facility] [address] [place], [place] [id number] Dr. Curly Connell Cholesterol.total/Chol esterol in HDL [Mass ratio] 3.6 {ratio} Normal [facility] Comment on above: Performed By: #### P T #### [facility] [address] [place] [address] [address] Curly Connell HDL NORMAL > or = 60 mg/dl - LO W CARDIOVASCULAR RISK <40 mg/dl - HIGH CARDIOVASCULAR RISK Normal [facility] Comment on above: Performed By: #### P T #### [facility] [address] [place] [address] [address] Curly Connell LDL CALC NORMAL SEE BELOW Normal [facility] Comment on above: Result Comment: <100 mg/dl OPTIMAL 100 - 129 mg/dl NEAR OR ABOVE OPTIMAL 130 - 159 mg/dl BORDERLINE HIGH 160 - 189 mg/dl HIGH >190 mg/dl VERY HIGH Performed By: #### P T #### [facility] [address] [place] [address] Dr. Curly Connell Triglyceride [Mass/Vol] 151 mg/dL Critically high <=150 [facility] Comment on above: Performed By: #### P T #### [facility] [address] [place] [address] [address] Curly Connell VLDL CALC 30.2 mg/dL Normal [facility] Comment on above: Performed By: #### P T #### [facility] [address] [place] [address] Dr. Curly Connell PROF 14(COMP METB)on 023 Albumin [Mass/Vol] 3.6 g/dL Normal 3.4-5.0 [facility] Comment on above: Performed By: #### P T #### [facility] [address] [place] [address] [address] Curly Connell Albumin/Globulin [Mass ratio] 0.8 {ratio} Normal [facility] Comment on above: Performed By: #### P T #### [facility] [address] [place] [address] Dr. Curly Connell ALP [Catalytic activity/Vol] 66 U/L Normal 46-116 [facility] Comment on above: Performed By: #### P T #### [facility] [address] [place] [address] [address] Curly Connell ALT [Catalytic activity/Vol] 21 U/L Normal 16-63 [facility] Comment on above: Performed By: #### P T #### [facility] [address] [place] [address] Dr. Curly Connell Anion gap [Moles/Vol] 9.6 mmol/L Normal [facility] Comment on above: Performed By: #### P T #### [facility] [address] [place] [address] Dr. Curly Connell AST [Catalytic activity/Vol] 15 U/L Normal 15-37 [facility] Comment on above: Performed By: #### P T #### [facility] [address] [place] [address] Dr. Curly Connell Bilirubin [Mass/Vol] 0.4 mg/dL Normal 0.2-1.0 [facility] [facility] Comment on above: Performed By: #### P T #### [facility] [address] [place] [address] Dr. Curly Connell Calcium [Mass/Vol] 9.2 mg/dL Normal 8.5-10.1 [facility] Comment on above: Performed By: #### P T #### [facility] [address] [place] [address] Dr. Curly Connell Chloride [Moles/Vol] 106 mmol/L Normal 98-107 [facility] Comment on above: Performed By: #### P T #### [facility] [address] [place] [address] Dr. Curly Connell CO2 [Moles/Vol] 28.2 mmol/L Normal 21.0-32.0 [facility] Comment on above: Performed By: #### P T #### [facility] [address] [place] [address] Dr. Curly Connell Creatinine [Mass/Vol] 1.23 mg/dL Normal 0.70-1.30 [facility] Comment on above: Performed By: #### P T #### [facility] [address] [address] [address] Curly Connell EGFR-AF TAJIK >60 Normal >=60 [facility] Comment on above: Performed By: #### P T #### [facility] [address] [address] [address] Curly Connell EGFR-NON AF TAJIK 60 mL/min/1.73m2 Normal >=60 [facility] Comment on above: Performed By: #### P T #### [facility] [address] [address] [address] Curly Connell Globulin (S) [Mass/Vol] 4.3 g/dL Normal [facility] Comment on above: Performed By: #### P T #### [facility] [address] [address] [address] Curly Connell Glucose [Mass/Vol] 123 mg/dL Critically high 74-106 [facility] Comment on above: Performed By: #### P T #### [facility] [address] [address] [address] Curly Connell Potassium [Moles/Vol] 4.8 mmol/L Normal 3.5-5.1 [facility] Comment on above: Performed By: #### P T #### [facility] [address] [address] [address] Curly Connell Protein [Mass/Vol] 7.9 g/dL Normal 6.4-8.2 [facility] Comment on above: Performed By: #### P T #### [facility] [address] [address] [address] Curly Connell Sodium [Moles/Vol] 139 mmol/L Normal 136-145 [facility] Comment on above: Performed By: #### P T #### [facility] [address] [address] [address] Curly Connell Urea nitrogen [Mass/Vol] 25.0 mg/dL Critically high 7.0-18.0 [facility] Comment on above: Performed By: #### P T #### [facility] [address] [address] [address] Curly Connell Urea nitrogen/Creatinine [Mass ratio] 20.3 mg/mg Normal [facility] Comment on above: Performed By: #### P T #### [facility] [address] [address] [address] Curly Connell PROTIMEon 01-31-2023 INR Coag (PPP) [Relative time] 2.17 {INR} Normal [facility] Comment on above: Performed By: #### P T #### [facility] [address] [address] [address] Curly Connell INR GUIDELINES SEE BELOW Normal [facility] Comment on above: Result Comment: DAFNE RED INR: 2.0 - 3.0 CONDITIONS NOT LISTED BELOW 2.5 - 3.5 FOR PROSTHETIC HEART VALVE REPLACEMENT 2.5 - 3.5 RECURRENT THROMBOSIS Performed By: #### P T #### [facility] [address] [place] [address] Dr. Curly Connell PT Coag (PPP) [Time] 22.0 s Critically high 9.0-11.6 [facility] Comment on above: Performed By: #### P T #### [facility] [address] [place] [address] Dr. Curly Connell US KIDNEYSon 01-21-2023 US [...] EFREM HUMPHREYS Date: 2023-01-21 10:07 Normal [facility] XR KUB 1 VIEWon 01-21-2023 XR KUB [...] EFREM HUMPHREYS Date: 2023-01-21 10:37 Normal [facility] PROTIMEon 12-30-2022 INR Coag (PPP) [Relative time] 2.16 {INR} Normal [facility] Comment on above: Performed By: #### P T #### [facility] [address] [address] [address] Curly Connell INR GUIDELINES SEE BELOW Normal [facility] Comment on above: Result Comment: DAFNE RED INR: 2.0 - 3.0 CONDITIONS NOT LISTED BELOW 2.5 - 3.5 FOR PROSTHETIC HEART VALVE REPLACEMENT 2.5 - 3.5 RECURRENT THROMBOSIS Performed By: #### P T #### [facility] [address] [address] [address] Curly Connell PT Coag (PPP) [Time] 21.9 s Critically high 9.0-11.6 [facility] Comment on above: Performed By: #### P T #### [facility] [address] [address] [address] Curly Connell PROTIMEon 10-14-2022 INR Coag (PPP) [Relative time] 2.36 {INR} Normal [facility] Comment on above: Performed By: #### P T #### [facility] [address] [address] [address] Curly Connell INR GUIDELINES SEE BELOW Normal [facility] Comment on above: Result Comment: DAFNE RED INR: 2.0 - 3.0 CONDITIONS NOT LISTED BELOW 2.5 - 3.5 FOR PROSTHETIC HEART VALVE REPLACEMENT 2.5 - 3.5 RECURRENT THROMBOSIS Performed By: #### P T #### [facility] [address] [place] [address] Dr. Curly Connell PT Coag (PPP) [Time] 23.8 s Critically high 9.0-11.6 [facility] Comment on above: Performed By: #### P T #### [facility] [address] [place] [address] Dr. Curly Connell PROTIMEon 09-16-2022 INR Coag (PPP) [Relative time] 1.93 {INR} Normal [facility] Comment on above: Performed By: #### P T #### [facility] [address] [place] [address] Dr. Curly Connell INR GUIDELINES SEE BELOW Normal [facility] Comment on above: Result Comment: DAFNE RED INR: 2.0 - 3.0 CONDITIONS NOT LISTED BELOW 2.5 - 3.5 FOR PROSTHETIC HEART VALVE REPLACEMENT 2.5 - 3.5 RECURRENT THROMBOSIS Performed By: #### P T #### [facility] [address] [place] [address] Dr. Curly Connell PT Coag (PPP) [Time] 20.0 s Critically high 9.0-11.6 [facility] Comment on above: Performed By: #### P T #### [facility] [address] [place] [address] Dr. Curly Connell PROTIMEon 08-07-2022 INR Coag (PPP) [Relative time] 2.68 {INR} Normal [facility] Comment on above: Performed By: #### P T #### [facility] [address] [place] [address] Dr. Curly Connell INR GUIDELINES SEE BELOW Normal [facility] Comment on above: Result Comment: DAFNE RED INR: 2.0 - 3.0 CONDITIONS NOT LISTED BELOW 2.5 - 3.5 FOR PROSTHETIC HEART VALVE REPLACEMENT 2.5 - 3.5 RECURRENT THROMBOSIS Performed By: #### P T #### [facility] [address] [place], [place] [address] Dr. Curly Connell PT Coag (PPP) [Time] 27.1 s Critically high 9.0-11.6 [facility] Comment on above: Performed By: #### P T #### [facility] [address] [place], [place] [address] ABD/PELVIS WO CONon [...] MASON NESBITT Date: 2022-07-17 19:16 Normal [facility] US KIDNEYSon 07-01-2022 US KIDNEYS Ultrasound kidneys, [...] by: HILL IRVING Date: 2022-07-01 09:02 Normal [facility] XR KUB 1 VIEWon 07-01-2022 [...] EFREM HUMPHREYS Date: 2022-07-01 16:28 Normal [facility] PROTIMEon 06-25-2022 INR Coag (PPP) [Relative time] 2.60 {INR} Normal [facility] Comment on above: Performed By: #### P T #### [facility] [address] [place] [address] Dr. Curly Connell INR GUIDELINES SEE BELOW Normal [facility] Comment on above: Result Comment: DAFNE RED INR: 2.0 - 3.0 CONDITIONS NOT LISTED BELOW 2.5 - 3.5 FOR PROSTHETIC HEART VALVE REPLACEMENT 2.5 - 3.5 RECURRENT THROMBOSIS Performed By: #### P T #### [facility] [address] [address] [address] Curly Connell PT Coag (PPP) [Time] 26.4 s Critically high 9.0-11.6 [facility] Comment on above: Performed By: #### P T #### [facility] [address] [address] [address] Curly Connell PROTIMEon 06-05-2022 INR Coag (PPP) [Relative time] 3.62 {INR} Normal [facility] Comment on above: Performed By: #### P T #### [facility] [address] [place] [address] Dr. Curly Connell INR GUIDELINES SEE BELOW Normal [facility] Comment on above: Result Comment: DAFNE RED INR: 2.0 - 3.0 CONDITIONS NOT LISTED BELOW 2.5 - 3.5 FOR PROSTHETIC HEART VALVE REPLACEMENT 2.5 - 3.5 RECURRENT THROMBOSIS Performed By: #### P T #### [facility] [address] [place] [address] Dr. Curly Connell PT Coag (PPP) [Time] 35.9 s Critically high 9.0-11.6 [facility] Comment on above: Performed By: #### P T #### [facility] [address] [place] [address] Dr. Curly Connell PROTIMEon 05-24-2022 INR Coag (PPP) [Relative time] 2.56 {INR} Normal [facility] Comment on above: Performed By: #### P T #### [facility] [address] [place] [address] Dr. Curly Connell INR GUIDELINES SEE BELOW Normal [facility] Comment on above: Result Comment: DAFNE RED INR: 2.0 - 3.0 CONDITIONS NOT LISTED BELOW 2.5 - 3.5 FOR PROSTHETIC HEART VALVE REPLACEMENT 2.5 - 3.5 RECURRENT THROMBOSIS Performed By: #### P T #### [facility] [address] [place] [address] Dr. Curly Connell PT Coag (PPP) [Time] 26.0 s Critically high 9.0-11.6 [facility] Comment on above: Performed By: #### P T #### [facility] [address] [place] [address] Dr. Curly Otero 05-15-2022 INR Coag (PPP) [Relative time] 4.22 {INR} Critically high The [facility] Comment on above: Performed By: #### P T #### [facility] [address] [place] [address] Dr. Curly Connell INR GUIDELINES SEE BELOW Normal [facility] Comment on above: Result Comment: DAFNE RED INR: 2.0 - 3.0 CONDITIONS NOT LISTED BELOW 2.5 - 3.5 FOR PROSTHETIC HEART VALVE REPLACEMENT 2.5 - 3.5 RECURRENT THROMBOSIS Performed By: #### P T #### [facility] [address] [place] [address] Dr. Curly Connell PT Coag (PPP) [Time] 41.5 s Critically high 9.0-11.6 [facility] Comment on above: Performed By: #### P T #### [facility] [address] [place] [address] Dr. Curly Otero 05-01-2022 INR Coag (PPP) [Relative time] 3.81 {INR} Normal [facility] Comment on above: Performed By: #### P T #### [facility] [address] [place] [address] Dr. Curly Connell INR GUIDELINES SEE BELOW Normal [facility] Comment on above: Result Comment: DAFNE RED INR: 2.0 - 3.0 CONDITIONS NOT LISTED BELOW 2.5 - 3.5 FOR PROSTHETIC HEART VALVE REPLACEMENT 2.5 - 3.5 RECURRENT THROMBOSIS Performed By: #### P T #### [facility] [address] [place] [address] Dr. Curly Connell PT Coag (PPP) [Time] 37.7 s Critically high 9.0-11.6 [facility] Comment on above: Performed By: #### P T #### [facility] [address] [place] [address] Dr. Curly Otero 04-10-2022 INR Coag (PPP) [Relative time] 2.90 {INR} Normal [facility] Comment on above: Performed By: #### P T #### [facility] [address] [place] [address] Dr. Curly Connell INR GUIDELINES SEE BELOW Normal [facility] Comment on above: Result Comment: DAFNE RED INR: 2.0 - 3.0 CONDITIONS NOT LISTED BELOW 2.5 - 3.5 FOR PROSTHETIC HEART VALVE REPLACEMENT 2.5 - 3.5 RECURRENT THROMBOSIS Performed By: #### P T #### [facility] [address] [place] [address] Dr. Curly Connell PT Coag (PPP) [Time] 29.2 s Critically high 9.0-11.6 [facility] Comment on above: Performed By: #### P T #### [facility] [address] [place] [address] Dr. Curly Connell PROTIMEjulia 03-28-2022 INR Coag (PPP) [Relative time] 2.52 {INR} Normal [facility] Comment on above: Performed By: #### P T #### [facility] [address] [place] [address] Dr. Curly Connell INR GUIDELINES SEE BELOW Normal [facility] Comment on above: Result Comment: DAFNE RED INR: 2.0 - 3.0 CONDITIONS NOT LISTED BELOW 2.5 - 3.5 FOR PROSTHETIC HEART VALVE REPLACEMENT 2.5 - 3.5 RECURRENT THROMBOSIS Performed By: #### P T #### [facility] [address] [place] [address] Dr. Curly Connell PT Coag (PPP) [Time] 25.6 s Critically high 9.0-11.6 [facility] Comment on above: Performed By: #### P T #### [facility] [address] [place] [address] Dr. Curly Connell PROTIMEjulia 03-25-2022 INR Coag (PPP) [Relative time] 1.81 {INR} Normal [facility] Comment on above: Performed By: #### P T #### [facility] [address] [address] [address] Curly Connell INR GUIDELINES SEE BELOW Normal [facility] Comment on above: Result Comment: DAFNE RED INR: 2.0 - 3.0 CONDITIONS NOT LISTED BELOW 2.5 - 3.5 FOR PROSTHETIC HEART VALVE REPLACEMENT 2.5 - 3.5 RECURRENT THROMBOSIS Performed By: #### P T #### [facility] [address] [place], [place] [address] Dr. Curly Connell PT Coag (PPP) [Time] 18.8 s Critically high 9.0-11.6 [facility] Comment on above: Performed By: #### P T #### [facility] [address] [address] [address] Curly Connell Cardiovascular Lab Reporton 03-21-2022 Cardiovascular Lab Report [facility] Patient Name: Janelle [facility] MR #: [id number] Department of Physician: Brian Byrne M.D. Division of Service Date: 03/20/2022 Cardiology Birthdate: 1965 Adult Cardiovascular Room #: [facility] [address] [facility] [place]. [place] [address] Cardiovascular Laboratory Report FINAL IMPRESSIONS: 1. Moderate [...] pain, namely gastrointestinal. 4. Follow up with [facility] in the next 1 to 2 [...] P/Dagoberto Cormier M.D. Date Trans: 03/21/2022 12:17 A/mmo [id number] cc: Shania Bhat, MSN, [employer] REPA[employer]ER-C Department Of Surgery [place] [address] [facility] [address] Delon Caballero M.D. [facility] [address] [facility] [place] [facility] [address] Normal [facility] CBC AUTO DIFFon 03-18-2022 BASO # 0.1 103/ul Normal 0.0-0.1 [facility] Comment on above: Performed By: #### C BC #### [facility] [address] [address] [address] Curly Connell Basophils/100 WBC (Bld) 0.8 % Normal 0.2-2.0 [facility] Comment on above: Performed By: #### C BC #### [facility] [address] [address] [address] Curly Connell EO # 0.1 103/ul Normal 0.0-0.7 [facility] Comment on above: Performed By: #### C BC #### [facility] [address] [address] [address] Curly Connell Eosinophils/100 WBC (Bld) 1.1 % Normal 0.9-7.0 [facility] Comment on above: Performed By: #### C BC #### [facility] [address] [address] [address] Curly Connell Erythrocyte distribution width (RBC) [Ratio] 20.7 % Critically high 11.0-15.0 [facility] Comment on above: Performed By: #### C BC #### [facility] [address] [address] [address] Curly Connell Hematocrit (Bld) [Volume fraction] 45.3 % Normal 42.0-54.0 [facility] Comment on above: Performed By: #### C BC #### [facility] [address] [address] [address] Curly Connell Hemoglobin (Bld) [Mass/Vol] 13.5 g/dL Critically low 14.0-18.0 [facility] Comment on above: Performed By: #### C BC #### [facility] [address] [place] [address] Dr. Curly Connell IG # 0.02 10e3/ul Normal 0.00-0.03 [facility] Comment on above: Performed By: #### C BC #### [facility] [address] [place] [address] Dr. Curly Connell IG % 0.2 % Normal 0.0-0.5 [facility] Comment on above: Performed By: #### C BC #### [facility] [address] [place] [address] Dr. Curly Connell LYMPH # 1.9 103/ul Normal 1.2-3.8 [facility] Comment on above: Performed By: #### C BC #### [facility] [address] [place] [address] Dr. Curly Connell Lymphocytes/100 WBC (Bld) 23.4 % Normal 20.5-60.0 [facility] Comment on above: Performed By: #### C BC #### [facility] [address] [place] [address] Dr. Curly Conenll MANUAL DIFF REQ NO Normal [facility] Comment on above: Performed By: #### C BC #### [facility] [address] [place] [address] Dr. Curly Connell MCH (RBC) [Entitic mass] 23.0 pg Critically low 25.9-34.0 [facility] Comment on above: Performed By: #### C BC #### [facility] [address] [place] [address] Dr. Curly Connell MCHC (RBC) [Mass/Vol] 29.8 g/dL Critically low 29.9-35.2 [facility] Comment on above: Performed By: #### C BC #### [facility] [address] [place] [address] Dr. Curly Connell MCV (RBC) [Entitic vol] 77.2 fL Critically low 80.0-94.0 [facility] Comment on above: Performed By: #### C BC #### [facility] [address] [place] [address] Dr. Curly Connell MONO # 0.6 103/ul Normal 0.3-0.8 [facility] Comment on above: Performed By: #### C BC #### [facility] [address] [place] [address] Dr. Curly Connell Monocytes/100 WBC (Bld) 7.7 % Normal 1.7-12.0 [facility] Comment on above: Performed By: #### C BC #### [facility] [address] [place] [address] Dr. Curly Connell NEUT # 5.5 103/ul Normal 1.4-6.5 [facility] Comment on above: Performed By: #### C BC #### [facility] [address] [place] [address] Dr. Curly Connell Neutrophils/100 WBC (Bld) 66.8 % Normal 43.0-75.0 [facility] Comment on above: Performed By: #### C BC #### [facility] [address] [place] [address] Dr. Curly Connell Platelet mean volume (Bld) [Entitic vol] 9.8 fL Normal 9.5-13.5 [facility] Comment on above: Performed By: #### C BC #### [facility] [address] [place] [address] Dr. Curly Connell PLT 337 103/ul Normal 150-450 [facility] Comment on above: Performed By: #### C BC #### [facility] [address] [place] [address] Dr. Curly Connell RBC 5.87 106/ul Normal 4.70-6.10 [facility] Comment on above: Performed By: #### C BC #### [facility] [address] [place] [address] Dr. Curly Connell WBC 8.3 103/ul Normal 4.0-11.0 [facility] Comment on above: Performed By: #### C BC #### [facility] [address] [place] [address] Dr. Curly Connell Covid-19 PCR (CVDTB)on 02-28 SARS-CoV-2 (COVID-19) RNA MARCELLO+probe Ql (Unsp spec) Not detected Normal NOT DETECTED [facility] Comment on above: Result Comment: This test is not yet approved or cleared by the [place] FDA. When there are no FDA-approved or cleared tests available, and other criteria are met, FDA can make tests available under an emergency access mechanism called an Emergency Use Authorization (EUA). The EUA for this test is supported by the [employer] Operator of Health and Human Service's (HHS's) declaration [...] SARS-CoV-2. Performed By: #### C VDTBH #### [facility] [address] [place] [address] Dr. Curly Connell PROF CHEM 8 (BAS METB)on Anion gap [Moles/Vol] 12.9 mmol/L Normal [facility] Comment on above: Performed By: #### P T #### [facility] [address] [place] [address] Dr. Curly Connell Calcium [Mass/Vol] 9.1 mg/dL Normal 8.5-10.1 [facility] Comment on above: Performed By: #### P T #### [facility] [address] [place] [address] Dr. Curly Connell Chloride [Moles/Vol] 105 mmol/L Normal 98-107 [facility] Comment on above: Performed By: #### P T #### [facility] [address] [place] [address] Dr. Curly Connell CO2 [Moles/Vol] 26.0 mmol/L Normal 21.0-32.0 [facility] Comment on above: Performed By: #### P T #### [facility] [address] [address] [address] Curly Connell Creatinine [Mass/Vol] 1.34 mg/dL Critically high 0.70-1.30 [facility] Comment on above: Performed By: #### P T #### [facility] [address] [address] [address] Curly Connell EGFR-AF TAJIK >60 Normal >=60 [facility] Comment on above: Performed By: #### P T #### [facility] [address] [address] [address] Curly Connell EGFR-NON AF TAJIK 55 mL/min/1.73m2 Critically low >=60 [facility] Comment on above: Performed By: #### P T #### [facility] [address] [address] [address] Curly Connell Glucose [Mass/Vol] 122 mg/dL Critically high 74-106 [facility] Comment on above: Performed By: #### P T #### [facility] [address] [address] [address] Curly Connell Potassium [Moles/Vol] 4.9 mmol/L Normal 3.5-5.1 [facility] Comment on above: Performed By: #### P T #### [facility] [address] [address] [address] Curly Connell Sodium [Moles/Vol] 139 mmol/L Normal 136-145 [facility] Comment on above: Performed By: #### P T #### [facility] [address] [address] [address] Curly Connell Urea nitrogen [Mass/Vol] 26.0 mg/dL Critically high 7.0-18.0 [facility] Comment on above: Performed By: #### P T #### [facility] [address] [address] [address] Curly Connell Urea nitrogen/Creatinine [Mass ratio] 19.4 mg/mg Normal [facility] Comment on above: Performed By: #### P T #### [facility] [address] [address] [address] Curly Connell PROTIMEon 03-12-2022 INR Coag (PPP) [Relative time] 2.73 {INR} Normal [facility] Comment on above: Performed By: #### P T #### [facility] [address] [place] [address] Dr. Curly Connell INR GUIDELINES SEE BELOW Normal [facility] Comment on above: Result Comment: DAFNE RED INR: 2.0 - 3.0 CONDITIONS NOT LISTED BELOW 2.5 - 3.5 FOR PROSTHETIC HEART VALVE REPLACEMENT 2.5 - 3.5 RECURRENT THROMBOSIS Performed By: #### P T #### [facility] [address] [place] [address] Dr. Curly Connell PT Coag (PPP) [Time] 27.6 s Critically high 9.0-11.6 [facility] Comment on above: Performed By: #### P T #### [facility] [address] [place] [address] Dr. Curly Connell NM STRESS/REST MULTIon 03-07 NM STRESS/REST MULTI Patient: DORIS LUIS Exam Date: 03/07/2022 : 1965 Gender:M Ordering : DR DELON CABALLERO . Admission #: [id number] Family : Order #: [id number] CLICK HERE TO VIEW EXAM RADIOLOGY REPORT [...] Humphreys MD on 03/08/2022 at 11:55 Normal [facility] ECHOCARDIO M/2D COMPLETEon 0 02-20-2022 ECHOCARDIO M/2D COMPLETE Patient: DORIS LUIS Exam Date: 02/20/2022 : 1965 Gender:M Ordering : DR DELON CABALLERO . Admission #: [id number] Family : Order #: [id number] CLICK HERE TO VIEW EXAM ECHOCARDIOGRAM REPORT [...] Pepe M.D. on 02/21/2022 at 12:46 Normal [facility] PROTIMEon 02-13-2022 INR Coag (PPP) [Relative time] 2.92 {INR} Normal [facility] Comment on above: Performed By: #### P T #### [facility] [address] [address] [address] Curly Connell INR GUIDELINES SEE BELOW Normal [facility] Comment on above: Result Comment: DAFNE RED INR: 2.0 - 3.0 CONDITIONS NOT LISTED BELOW 2.5 - 3.5 FOR PROSTHETIC HEART VALVE REPLACEMENT 2.5 - 3.5 RECURRENT THROMBOSIS Performed By: #### P T #### [facility] [address] [address] [address] Curly Connell PT Coag (PPP) [Time] 29.4 s Critically high 9.0-11.6 [facility] Comment on above: Performed By: #### P T #### [facility] [address] [address] [address] Curly Connell CHEMISTRYOrdered By: Lab ROP User on 01-17-2022 Glucose [Mass/Vol] 121 mg/dL High 55 - 99 mg/dL [facility] POC Subsection Comment on above: Result Comment: Noti fied RN/MD POC Device SN [id number] Invalid Interpretation Code [facility] POC Subsection POC User ID [id number] Invalid Interpretation Code [facility] POC Subsection POC Username SHANIKA ORTIZ Invalid Interpretation Code [facility] P[facility] Subsection COAGULATIONOrdered By: Efrem Moscoso on 01-17-2022 aPTT Coag (PPP) [Time] 36.2 s Normal 25.1 - 36.5 second(s) [facility] Auto Coag INR Coag (PPP) [Relative time] 1.1 {INR} Invalid Interpretation Code [facility] Auto Coag PT Coag (PPP) [Time] 13.4 s High 10.2 - 12.9 second(s) [facility] Auto Coag CHEMISTRYOrdered By: Efrem soria on 01-11-2022 Anion gap [Moles/Vol] 12 mmol/L Normal 6 - 16 mEq/L F C Remisol Calcium [Mass/Vol] 9.1 mg/dL Normal 8.9 - 11. 1 mg/dL [facility] Remisol Chloride [Moles/Vol] 105 mmol/L Normal 101 - 1 11 mmol/L [facility] Remisol CO2 [Moles/Vol] 25 mmol/L Normal 21 [...] 17 mg/dL Normal 5 - 21 mg/dL [facility] Remisol Urea nitrogen/Creatinine [Mass ratio] 17 mg/mg Normal 10 - 20 [facility] Remisol CHEMISTRYOrdered By: SYSTEM SYSTEM on 01-11-2022 GFR/1.73 sq M.predicted among blacks MDRD (S/P/Bld) [Vol rate/Area] mL/min/1.73 m2 Normal >=59mL/min/1 .73 m2 [facility] Chem S GFR/1.73 sq M.predicted among non-blacks MDRD (S/P/Bld) [Vol rate/Area] mL/min/1.73 m2 Normal >=59mL/min/1 .73 m2 [facility] Chem S COAGULATIONOrdered By: Jomar Cheema on [...] PM) Normal Negative [facility] UA Auto SS [place].plasma/[place] .RBC (Bld) [Mass ratio] 0-3 /HPF Normal [...] [facility] UA Auto SS Urobilinogen Qn (U) [id number] {Rashida'U}/dL Normal 0.0 - 1.0 EU/dL [facility] UA Auto SS WBC Auto Ql (U) Negative (01/11/22 1:18 PM) Normal Negative [facility] UA Auto SS WBC LM.HPF (Urine sed) [#/Area] 0-5 /HPF Normal 0-5/HPF [facility] UA Auto SS OPERATIVE REPORTon 9 OPERATIVE REPORT [address] [id number] OPERATIVE REPORT PATIENT NAME: DORIS LUIS : 1965 MED REC NO: [id number] ROOM: [facility] ACCOUNT NO: [id number] ADMIT DATE: 01/18/2019 PROVIDER: Efrem Matson DATE OF PROCEDURE: 04/22/2019PREOPERATIV E DIAGNOSES: 1. Left L4-L5 disk herniation. [...] little over 2 months. He has tried rn home care without benefit and imaging demonstrates the [...] small incision in the fascia, and the ConnectionPlusRx tube dilator system was used to dilate [...] evidence of complication. EFREM MATSON [id number] Doc#: [id number] CC: Normal [facility] APTTon 01-18-2019 aPTT Coag time (Bld) 19.5 s Low 20.5-30.5 [facility] Comment on above: Result Comment: No c lot found in specimen, results questionable. TEST CONFIRMED Performed By: #### P T, PTT #### [address] [address] Regional Education Manager: Panchito Nguyen MD PTon 01-18-2019 INR Coag RelTime (PPP) 0.9 {INR} Normal [facility] Comment on above: Result Comment: Therapeutic Range: Moderate Anticoagulant Intensity: INR = 2.0-3.0 High Anticoagulant Intensity: INR = 2.5-3.5 No clot found in specimen, results questionable. Performed By: #### P T, PTT #### [address] [address] Regional Education Manager: Panchito Nguyen MD Prothrombin time (PT) Coag time (PPP) 9.5 s Normal 9.0-12.0 [facility] Comment on above: Result Comment: No c lot found in specimen, results questionable. Performed By: #### P T, PTT #### [address] [address] Regional Education Manager: Panchito Nguyen MD Type + Screenon 01-18-2019 Type + Screen Sample Expiration 01/21/2019 Arm Band Number [id number] ABO/Rh(D) A POSITIVE Antibody Screen NEGATIVE Normal [facility] Comment on above: Performed By: #### T YS #### [facility] [employer] [address] [place] [address] Regional Education Manager: Panchito Nguyen MD XR LUMBAR SPINE (2-3 [...] Anup Guerrero MD 01/18/19 Final result Normal [facility] Vital Signs Date Time Vital Sign Value Performing Clinician Facility 12-30-2023 11:17-0400 Blood Pressure Location Elsy Orzech [facility] 12-30-2023 11:17-0400 Body temperature 98.42 [degF] Elsy Orzech [facility] 12-30-2023 11:17-0400 Diastolic blood pressure 88 mm[Hg] Elsy Orzech [facility] 12-30-2023 11:17-0400 Heart rate 83 /min Elsy Orzech [facility] 12-30-2023 11:17-0400 Respiratory rate 16 /min Elsy Orzech [facility] 12-30-2023 11:17-0400 Systolic blood pressure 122 mm[Hg] Elsy Orzech [facility] 08-29-2023 13:46-0500 Blood Pressure Location Jamil NILL [facility] 08-29-2023 13:46-0500 Diastolic blood pressure 78 mm[Hg] Jamil NILL [facility] 08-29-2023 13:46-0500 Heart rate 72 /min Jamil NILL [facility] 08-29-2023 13:46-0500 Respiratory rate 16 /min Jamil NILL [facility] 08-29-2023 13:46-0500 Systolic blood pressure 126 mm[Hg] Jamil NILL [facility] 03-12-2023 14:22-0400 Blood Pressure Location Jamil NILL [facility] 03-12-2023 14:22-0400 Diastolic blood pressure 78 mm[Hg] Jamil NILL [facility] 03-12-2023 14:22-0400 Heart rate 72 /min Jamil NILL [facility] 03-12-2023 14:22-0400 Respiratory rate 16 /min Jamil NILL [facility] 03-12-2023 14:22-0400 Systolic blood pressure 126 mm[Hg] Jamil NILL [facility] 07-03-2022 13:18-0400 Blood Pressure Location EDGAR ELIJAH [facility] 07-03-2022 13:18-0400 Diastolic blood pressure 76 mm[Hg] EDGAR ELIJAH [facility] 07-03-2022 13:18-0400 Heart rate 62 /min EDGAR ELIJAH [facility] 07-03-2022 13:18-0400 Systolic blood pressure 128 mm[Hg] EDGAR NAVA [facility] 01-17-2022 12:56-0400 Blood Pressure Location David Pacheco Jr. [facility] 01-17-2022 12:56-0400 BP/Pulse Patient Position David Pacheco Jr. [facility] 01-17-2022 12:56-0400 Diastolic blood pressure 79 mm[Hg] David Pacheco Jr. [facility] 01-17-2022 12:56-0400 Heart rate 50 /min David Pacheco Jr. [facility] 01-17-2022 12:56-0400 Mean blood pressure 94 mm[Hg] David Pacheco Jr. [facility] 01-17-2022 12:56-0400 SaO2% (BldA) [Mass fraction] 96 % David Pacheco Jr. [facility] 01-17-2022 12:56-0400 Systolic blood pressure 125 mm[Hg] David Pacheco Jr. [facility] 01-17-2022 12:56-0400 Body temperature 97.52 [degF] David Pacheco Jr. [facility] 01-17-2022 12:01-0400 Blood Pressure Location David Pacheco Jr. [facility] 01-17-2022 12:01-0400 BP/Pulse Patient Position David Pacheco Jr. [facility] 01-17-2022 12:01-0400 Diastolic blood pressure 83 mm[Hg] David Pacheco Jr. [facility] 01-17-2022 12:01-0400 Heart rate 49 /min David Pacheco Jr. [facility] 01-17-2022 12:01-0400 Mean blood pressure 98 mm[Hg] David Pacheco Jr. [facility] 01-17-2022 12:01-0400 Respiratory rate 16 /min David Pacheco Jr. [facility] 01-17-2022 12:01-0400 SaO2% (BldA) [Mass fraction] 94 % David Pacheco Jr. [facility] 01-17-2022 12:01-0400 Systolic blood pressure 129 mm[Hg] David Pacheco Jr. [facility] 01-17-2022 12:01-0400 Body temperature 97.34 [degF] David Pacheco Jr. [facility] 01-17-2022 11:55-0400 Blood Pressure Location David Pacheco Jr. [facility] 01-17-2022 11:55-0400 Body temperature 97.34 [degF] David Pacheco Jr. [facility] 01-17-2022 11:55-0400 Diastolic blood pressure 81 mm[Hg] David Pacheco Jr. [facility] 01-17-2022 11:55-0400 Heart rate 50 /min David Pacheco Jr. [facility] 01-17-2022 11:55-0400 Respiratory rate 12 /min David Pacheco Jr. [facility] 01-17-2022 11:55-0400 SaO2% (BldA) [Mass fraction] 97 % David Pacheco Jr. [facility] 01-17-2022 11:55-0400 Systolic blood pressure 126 mm[Hg] David Pacheco Jr. [facility] 01-17-2022 11:40-0400 Respiratory rate 16 /min David Pacheco Jr. [facility] 01-17-2022 11:25-0400 Respiratory rate 18 /min David Pacheco Jr. [facility] 01-17-2022 11:00-0400 Respiratory rate 25 /min David Pacheco Jr. [facility] 01-17-2022 10:55-0400 Respiratory rate 26 /min David Pacheco Jr. [facility] 01-17-2022 08:12-0400 gluc 121 mg/dL David Pacheco Jr. [facility] 01-17-2022 07:52-0400 Body temperature 97.7 [degF] David Pacheco Jr. [facility] 01-17-2022 07:52-0400 BP/Pulse Patient Position David Pacheco Jr. [facility] 01-17-2022 07:52-0400 Mean blood pressure 95 mm[Hg] David Pacheco Jr. [facility] 01-17-2022 07:52-0400 Heart rate 48 /min David Pacheco Jr. [facility] 01-11-2022 12:42-0400 Diastolic blood pressure 81 mm[Hg] David Pacheco Jr. [facility] 01-11-2022 12:42-0400 Heart rate 44 /min David Pacheco Jr. [facility] 01-11-2022 12:42-0400 Mean blood pressure 97 mm[Hg] David Pacheco Jr. [facility] 01-11-2022 12:42-0400 Respiratory rate 16 /min David Pacheco Jr. [facility] 01-11-2022 12:42-0400 SaO2% (BldA) [Mass fraction] 98 % David Pacheco Jr. [facility] 01-11-2022 12:42-0400 Systolic blood pressure 131 mm[Hg] David Pacheco Jr. [facility] 01-11-2022 12:42-0400 Blood Pressure Location David Pacheco Jr. [facility] 01-11-2022 12:42-0400 Body temperature 97.7 [degF] David Pacheco Jr. [facility] 01-11-2022 12:40-0400 Blood Pressure Location David Pacheco Jr. [facility] 01-11-2022 12:40-0400 Diastolic blood pressure 90 mm[Hg] David Pacheco Jr. [facility] 01-11-2022 12:40-0400 Heart rate 46 /min David Pacheco Jr. [facility] 01-11-2022 12:40-0400 Mean blood pressure 108 mm[Hg] David Pacheco Jr. [facility] 01-11-2022 12:40-0400 Respiratory rate 16 /min David Pacheco Jr. [facility] 01-11-2022 12:40-0400 SaO2% (BldA) [Mass fraction] 98 % David Pacheco Jr. [facility] 01-11-2022 12:40-0400 Systolic blood pressure 144 mm[Hg] David Pacheco Jr. [facility] Encounters Encounter Date Encounter Type Care Provider Facility Start: 01-18-2025 End: 01-18-20[facility] Start: 12-16-2024 End: 12-16-2024 ambulatory [facility] Start: 11-05-2024 Evaluation and management of inpatient DIANDRA [facility] Start: 11-05-2024 Evaluation and management of inpatient DIANDRA MCGOWAN [facility] Start: 11-04-2024 Evaluation and management of inpatient LISS CLAROSKL [facility] Start: 11-03-2024 End: 11-05-2024 Evaluation and management of inpatient AZALEA GARZA [facility] Start: 11-03-2024 ambulatory [facility] Start: 08-03-2024 End: 08-03-2024 [facility] Start: 02-10-2024 End: 02-11-2024 ambulatory Elsy X Orzech Facility:[facility] Start: 02-10-2024 End: 02-10-2024 Patient encounter procedure El[facility] X Orzech [facility] Start: 12-30-2023 End: 12-31-2023 ambulatory Elsy X Orzech Facility:[facility] Start: 12-30-2023 End: 12-31-2023 ambulatory Elsy X Orzech Facility:[facility] Start: 12-30-2023 End: 12-30-2023 Lab Drop off Elsy X Orzech [facility] Start: 12-30-2023 End: 12-30-2023 Patient encounter procedure Elsy X Orzech [facility] Start: 09-17-2023 End: 09-18-2023 ambulatory Jamil R BOLAL Facility:[id number] Start: 09-14-2023 Chart abstracting [facility] GENERIC EXTERNAL DATA DEPARTMENT Start: 08-29-2023 End: 08-30-2023 ambulatory Jamil R NILL Facility:[facility] Start: 08-29-2023 End: 08-29-2023 Patient encounter procedure Jamil R NILL [facility] Start: 03-12-2023 End: 03-13-2023 ambulatory Jamil R NILL Facility:[facility] Start: 03-12-2023 End: 03-12-2023 Patient encounter procedure Jamil R NILL [facility] Start: 02-26-2023 End: 02-26-2023 ambulatory ALFIE RAZA Facility:[facility] Start: 02-19-2023 ambulatory Delon Caballero Facility:[facility] Start: 02-18-2023 End: 02-19-2023 ambulatory PA-C EDGAR NAVA Facility:[facility] Start: 02-18-2023 End: 02-19-2023 ambulatory PAMarichuy NAVA Facility:[facility] Start: 02-04-2023 End: 02-05-2023 ambulatory SHANIA BHAT Facility: Start: 01-31-2023 End: 02-01-[address] DELON CABALLERO . Facility:[facility] Start: 01-21-2023 End: 01-22-2023 ambulatory EDGAR NAVA Facility:[facility] Start: 12-30-2022 End: 12-31-[address] DELON CABALLERO . Facility:[facility] Start: 10-14-2022 End: 10-15-[address] DELON CABALLERO . Facility:[facility] Start: 09-16-2022 End: 09-17-[address] DELON CABALLERO . Facility:[facility] Start: 08-07-2022 End: 08-28-[address] DELON CABALLERO . Facility:[facility] Start: 07-17-2022 End: 07-18-2022 ambulatory EDGAR NAVA Facility:[facility] Start: 07-03-2022 End: 07-04-2022 ambulatory EDGAR NAVA Facility:[facility] Start: 07-03-2022 End: 07-03-2022 Patient encounter procedure EDGAR NAVA [facility] Start: 07-01-2022 End: 07-02-2022 ambulatory EDGAR NAVA Facility:[facility] Start: 06-29-[address] DELON CABALLERO . Facili ty:[facility] Start: 06-05-2022 End: 06-29-[address] DELON CABALLERO . Facility:[facility] Start: 05-24-[address] DELON CABALLERO . Facili ty:[facility] Start: 05-01-2022 End: 05-29-[address] DELON CABALLERO . Facility:[facility] Start: 04-10-2022 End: 04-26-[address] DELON CABALLERO . Facility:[facility] Start: 03-25-2022 End: 03-29-[address] DLEON CABALLERO . Facility:[facility] Start: 03-20-2022 End: 03-21-2022 ambulatory DAGOBERTO CORMIER Facility:[facility] Start: 03-18-2022 End: 03-19-2022 ambulatory SHANIA MALCOLMS Facility:[facility] Start: 03-07-2022 End: 03-29-[address] DELON CABALLERO . Facility:[facility] Start: 03-07-2022 End: 03-08-[address] DELON CABALLERO . Facility:[facility] Start: 02-20-2022 End: 02-21-[address] DELON CABALLERO . Facility:[facility] Start: 01-17-2022 End: 01-17-2022 Admission to same day surgery center David Pacheco Jr. [facility] Start: 01-11-2022 End: 01-11-2022 Patient encounter procedure David Pacheco Jr. [facility] Start: 12-25-2021 End: 12-25-2021 Patient encounter procedure David Pacheco JrKenneth [facility] Start: 01-18-2019 End: 01-19-2019 Patient encounter procedure EFREM MATSON [facility] Procedures Date Procedure Procedure Detail Performing Clinician Start: 12-13-2023 Echography of kidney Au mariza [place] Start: 07-03-[address] SONIDO CABALLERO . Comment on above: Performed By: #### P T #### [facility] [address] [place] [address] Dr. Curly Connell Start: 01-17-2022 Fluoroscopy guided [...] time EFREM MATSON Start: 11-14-2014 Colonoscopy Jamil NI LL Start: 07-06-2014 Cystoscopy and retro grade pyelography David Pacheco Jr. Start: 09-29-2009 Hemorrhoidectomy Michae l NILL Cardiac catheterization Nicanor ael NILL Excision of lipoma Jamil ELIZABETH Extraction of cataract Heladio el NILPhong Angela filter, fide evice (physical object) David Pacheco Jr. Angela filter, d evice (physical object) David Junior Mccollum Hemorrhoidectomy David Anson serena History of operative procedure on knee David Pacheco History of operative procedure on lumbar spinal structure Jamil DE LUNA Removal of thrombus Jamil DE LUNA Repair of meniscus Jamil ELIZABETH Special back care David valdez JrKenneth Tonsillectomy David Junior bradley Plan of Treatment Date Care Activity Detail Author Start: 10-30-2024 Diabetes Screening Diabetes Screenin g [facility] Start: 05-30-2023 Influenza vaccination Influenza Vacc ine (#1) [facility] Start: 2023 RSV Vaccine (1 - 1-d ose 60+ series) RSV Vaccine (1 - 1-dose 60+ series) [facility] Start: 09-29-2022 Depression Assessment Depression Ass essment [facility] Start: 2018 Prostate specific an tigen measurement Prostate Cancer Screening Discussion [facility] Start: 2013 Shingrix Vaccine (1 of 2) Adair grix Vaccine (1 of 2) [facility] Start: 2008 Screening for malign ant neoplasm of colon [facility] Start: 1998 Lipid panel Lipid Screening [facility] Start: 1982 Urine microalbumin profile DTa P,Tdap,Td Vaccine (1 - Tdap) [facility] Start: 1981 Hepatitis C screening Hepatitis C Sc paola [facility] Start: 1981 HIV screening HIV Screening [facility] Start: 1963 Covid-19 Vaccine (#1) Covid-19 Vacci ne (#1) [facility] Immunizations Immunization Date Immunization Notes Care Provider Renzo gatica 02-26-2023 tetanus toxoid, reduced diphtheria toxoid, and acellular pertussis vaccine, adsorbed Elsy [place] [facility] 08-27-2017 influenza, unspecifi ed formulation EDGAR NAVA [facility] 08-27-2017 influenza virus vaccine, unspecified formulation Generic Provider [facility] 06-26-2016 influenza, unspecifi ed formulation EDGAR NAVA [facility] NEGATED: Highlighted row has not occurred!08-29-2023 influenza virus vaccine, unspecified formulation Jamil DE LUNA [facility] Payers Date Payer Category Payer Medicare MEDICARE MEDICAR E A AND B [id number] 2017-Present [phone] [place] [address] Medicare [id number] 1963 Unknown [id number] 2.16.840.1.512606.3.579.2.175 1963 Unknown [id number] 2.16.840.1.496444.3.579.2.647 1963 Unknown [id number] 2.16.840.1.008383.3.579.2.593 1963 Unknown [id number] 2.16.840.1.154917.3.579.2.593 1963 Unknown [id number] 2.16.840.1.747583.3.579.2.593 1963 Unknown [id number] 2.16.840.1.547160.3.579.2.593 1963 Unknown [id number] 2.16.840.1.799876.3.579.2.593 1963 Unknown [id number] 2.16.840.1.074528.3.579.2.593 1963 Unknown [id number] 2.16.840.1.185861.3.579.2.593 1963 Unknown [id number] 2.16.840.1.354523.3.579.2.593 1963 Unknown [id number] 2.16.840.1.077937.3.579.2.593 1963 Unknown [id number] 2.16.840.1.442914.3.579.2.593 1963 Unknown [id number] 2.16.840.1.200270.3.579.2.593 1963 Unknown [id number] 2.16.840.1.659161.3.579.2.593 1963 Unknown [id number] 2.16.840.1.010160.3.579.2.593 1963 Unknown [id number] 2.16.840.1.186152.3.579.2.593 1963 Unknown [id number] 2.16.840.1.168109.3.579.2.593 1963 Unknown [id number] 2.16.840.1.233653.3.579.2.593 1963 Unknown [id number] 2.16.840.1.425272.3.579.2.593 1963 Unknown [id number] 2.16.840.1.933928.3.579.2.593 1963 Unknown [id number] 2.16.840.1.606653.3.579.2.593 1963 Unknown [id number] 2.16.840.1.194988.3.579.2.593 1963 Unknown [id number] 2.16.840.1.036008.3.579.2.593 1963 Unknown [id number] 2.16.840.1.185219.3.579.2.718 1963 Unknown [id number] 2.16.840.1.607756.3.579.2.727 1963 Unknown [id number] 2.16.840.1.436329.3.579.2.727 1963 Unknown [id number] 2.16.840.1.952435.3.579.2.727 1963 Unknown [id number] 2.16.840.1.897115.3.579.2.727 1963 Unknown [id number] 2.16.840.1.610209.3.579.2.727 1963 Unknown [id number] 2.16.840.1.861186.3.579.2.727 1963 Unknown [id number] 2.16.840.1.188754.3.579.2.727 1963 Unknown [id number] 2.16.840.1.424476.3.579.2.727 1963 Unknown [id number] 2.16.840.1.230193.3.579.2.727 1959 Medicare [id number] 1959 Unknown [id number] Social History Date Type Detail Facility Start: 08-08-2021 Tobacco smoking status Never s moked tobacco (finding) [facility] Tobacco smoking status Never [facility] Sex Assigned At Male [facility] Start: 03-12-2023 End: 12-30-2023 Tobacco smoking status Ex-smoker (finding) [facility] Start: 10-29-2021 Alcohol intake Current drinke r of alcohol (finding) [facility] Start: 1965 Sex Assigned At Not on file [facility] Medical Equipment Procedure Code Equipment Code Equipment Origin al Text Equipment Identifier Dates FDA Start: 09-20-2021 FDA Start: 09-20-2021 FDA Start: 09-20-2021 CYSTOSCOPY URETEROSCOPY Spencer MATIAS MD 09/20/21 Unknown Ureter R FDA Start: 09-20-2021 CYSTOSCOPY URETEROSCOPY Spencer MATIAS MD P 09/20/21 Unknown Ureter R FDA Start: 09-20-2021 CYSTOSCOPY URETERSpencer ELI MD P 09/20/21 Unknown Ureter R FDA Start: 09-20-2021 CYSTOSCOPY URETERSpencer ELI MD P 09/20/21 Unknown Ureter R FDA Start: 09-20-2021 CYSTOSCOPY URETEROSCOPY Spencer MATIAS MD P 09/20/21 Unknown Ureter R FDA Start: 09-20-2021 CYSTOSCOPY URETEROSCOPY Spencer MATIAS MD P 09/20/21 Unknown Ureter R FDA Start: 09-20-2021 Functional Status Date Assessment Result Facility 12-30-2023 Functional Status N/A [facility] 08-29-2023 Functional Status N/A [facility] 03-12-2023 Functional Status N/A [facility] 07-03-2022 Functional Status N/A [facility] Clinical Notes 08-27-2021 to 01-18-2025 Note Date & Type Note Facility 01-18-2025 Note [facility] Electrophysiology Consult Note [facility] Reason for visit: NSVT/ NS AT HPI: Doris Luis is a 59 y.o. year old with past medical history of CAD s/p PCI, DVT, diabetes mellitus type 2, hypertension, hyperlipidemia, antiphospholipid syndrome s/p IVC filter was recently discharged from [place] after he presented with unstable angina. Cardiac cath at that time showed moderate to severe disease of D1 and moderate disease of circumflex and RCA but he had a patent stent in the LAD. He was subsequently discharged and was given an event monitor for the palpitations that he endorsed. This revealed the presence of nonsustained nonsustained atrial tachycardia seen on 11/22/2024 at 11:24 PM as well as nonsustained ventricular tachycardia noted on 11/18/2024 at 3:59 PM he was also noted to have PVCs and couplets from. PMH: Past Medical History: Diagnosis Date Abnormal ECG Coronary artery disease Deep vein thrombosis (CMS/HCC) Diabetes mellitus (CMS/HCC) Hyperlipidemia Hypertension PSH: Past Surgical History: Procedure Laterality Date CARDIAC CATHETERIZATION CORONARY STENT PLACEMENT INFERIOR VENA CAVA ANGIOPLASTY / STENTING SH: Social Determinants of Health Tobacco Use: Medium Risk (01/18/2025) Patient History Smoking Tobacco Use: Former Smokeless Tobacco Use: Never Passive Exposure: Not on file Alcohol Use: Not on file Financial Resource Strain: Low Risk (11/03/2024) Overall Financial Resource Strain (CARDIA) Difficulty of Paying Living Expenses: Not hard at all Food Insecurity: No Food Insecurity (11/03/2024) Hunger Vital Sign Worried About Running Out of Food in the Last Year: Never true Ran Out of Food in the Last Year: Not on file Transportation Needs: No Transportation Needs (11/03/2024) Transportation Lack of Transportation (Medical): No Lack of Transportation (Non-Medical): Not on file Physical Activity: Not on file Stress: Not on file Social Connections: Not on file Intimate Partner Violence: Unknown (11/03/2024) Humiliation, Afraid, Rape, and Kick questionnaire Fear of Current or Ex-Partner: No Emotionally Abused: Not on file Physically Abused: Not on file Sexually Abused: Not on file Depression: Not on file Housing Stability: Low Risk (11/03/2024) Housing Stability Vital Sign Unable to Pay for Housing in the Last Year: No Number of Times Moved in the Last Year: Not on file Homeless in the Last Year: No Utilities: Not At Risk (11/03/2024) [facility] Utilities Threatened with loss of utilities: No Health Literacy: Not on file Allergies: Allergies Allergen Reactions Penicillins Hives Hydrocodone-Acetaminophen Hallucinations and Unknown Other Reaction(s): Migraine Sulfa (Sulfonamide Antibiotics) Hives Weight: 104kg Visit Vitals BP (!) 135/97 (BP Location: Left arm, Patient Position: Sitting) Pulse 62 Ht 1.778 m (5' 10 ) Wt 104 kg (230 lb) SpO2 94% BMI 33.00 kg/m??? Smoking Status Former BSA 2.27 m??? Meds: Current Outpatient Medications on File Prior to Visit Medication Sig Dispense Refill amLODIPine (Norvasc) 5 mg tablet Take 1 tablet (5 mg) by mouth in the morning. 90 tablet 3 celecoxib (CeleBREX) 200 mg capsule Take 200 mg by mouth every other day. cholecalciferol (Vitamin D-3) 25 MCG (1000 units) tablet Take 1,000 Units by mouth in the morning. lisinopril 30 mg tablet take 1 tablet by mouth every morning 90 tablet 3 metoprolol tartrate (Lopressor) 25 mg tablet Take 1 tablet (25 mg) by mouth two times daily for 195 doses. 195 tablet 0 omeprazole (PriLOSEC) [address] capsule Take 20 mg by mouth in the morning. rosuvastatin (Crestor) 40 mg tablet Take 1 tablet (40 mg) by mouth once daily as directed. (Patient taking differently: Take 40 mg by mouth at bedtime.) 90 tablet 3 tiZANidine (Zanaflex) 4 mg tablet Take 4 mg by mouth if needed at bedtime for muscle spasms. traMADol (Ultram) 50 mg tablet Take 1 tablet by mouth every 6 (six) hours during the day. venlafaxine XR (Effexor-XR) 75 mg 24 hr capsule Take 75 mg by mouth in the morning. warfarin (Coumadin) 4 mg tablet TAKE 1 TAB BY MOUTH EVERY OTHER DAY (EXCEPT 5MG ON SUNDAYS) aspirin 81 mg chewable tablet Chew 1 tablet (81 mg) in the morning. (Patient not taking: Reported on 12/16/2024) 30 tablet 2 No current facility-administered medications on file prior to visit. ROS: Review of Systems Cardiovascular: Positive for chest pain, dyspnea on exertion and leg swelling. Hematologic/Lymphatic: Bruises/bleeds easily. Musculoskeletal: Positive for back pain and joint pain. Gastrointestinal: Positive for constipation. All other systems reviewed and are negative. Physical Exam: Constitutional General Appearance: well-nourished, well-developed, appears stated age Level of Distress: comfortable Eyes TERE Neck Neck: supple, trachea midline Carotid Arteries: bilateral normal upstroke, no bruits Jugular Veins: normal jugula (more content not included)... [facility] 12-16-2024 Note [facility] Cardiology Clinic Note Chief Complaint: Patient here for follow up [facility]. He was discharged with event monitor. Had some dizzy spells while wearing it, but says this has been better the past 1-2 weeks. Fell a few days ago but denies syncopal episode, says he tripped. Back to taking Celebrex every other day per Dr. Caballero. Hasn't been taking aspirin. HPI: Doris Luis is a 59 y.o. [...] over the past 4 to 5 months. Hospital Medicine Discharge Summary Final Discharge Diagnosis: Unstable angina s/p cardiac cath showing patent stent in LAD, moderate to severe disease of first diagonal branch of LAD, moderate at disease of left circumflex and RCA Coronary artery disease s/p PCI Syncope and collapse Hyperlipidemia Sop-jttpyqs-svvkhzgki type 2 diabetes mellitus Antiphospholipid syndrome Primary [...] DM2 presents as a direct admission from [facility] with a chief complaint of chest pain. Patient was seen in the [facility]ology clinic today for a follow-up. He [...] over the last 4 to 5 months. Warp Knit Operator sent patient to the [facility] emergency department where he was found to have an elevated troponin so he was sent to [facility] for further evaluation. Cardiology was [...] discharge. Patient is advised close follow-up with nude model after discharge. Surgical, Invasive or Diagnostic Procedures Done During Admission: Cardiac Cath Consultations During Admission: Cardiology Dear Dr. Iris MD, [place] is advised to follow up with you within 1-2 weeks. Items to follow up in ambulatory setting: Follow-up serial BMPs Follow-up with: Cardiology Scheduled appointments: Future Appointments Date Time Provider Department Center 12/16/2024 1:00 PM Dagoberto Cormier MD [facility] Cardiology ROS: Review of Systems Cardiovascular: Positive for chest pain, dyspnea on exertion and leg swelling. Hematologic/Lymphatic: Bruises/bleeds easily. Musculoskeletal: Positive for back pain and joint pain. Gastrointestinal: Positive for constipation. All other systems reviewed and are negative. Past Medical History He has a past medical history of Coronary artery disease, Deep vein thrombosis (CMS/HCC), Diabet (more content not included)... [facility] 11-05-2024 Note Hospital Medicine Discharge Summary Final Discharge Diagnosis: Unstable angina s/p cardiac cath showing patent stent in LAD, moderate to severe disease of first diagonal branch of LAD, moderate at disease of left circumflex and RCA Coronary artery disease s/p PCI Syncope and collapse Hyperlipidemia Tbw-ghsexbs-ipobszcfe type 2 diabetes mellitus Antiphospholipid syndrome Primary [...] DM2 presents as a direct admission from [facility] with a chief complaint of chest pain. Patient was seen in the [facility] cardiology clinic today for a follow-up. He [...] over the last 4 to 5 months. Warp Knit Operator sent patient to the [facility] emergency department where he was found to have an elevated troponin so he was sent to [facility] for further evaluation. Cardiology was [...] discharge. Patient is advised close follow-up with nude model after discharge. Surgical, Invasive or Diagnostic Procedures Done During Admission: Cardiac Cath Consultations During Admission: Cardiology Dear Dr. Iris MD, Doris is advised to follow up with you within 1-2 weeks. Items to follow up in ambulatory setting: Follow-up serial BMPs Follow-up with: Cardiology Scheduled appointments: Future Appointments Date Time Provider Department Center 12/16/2024 1:00 PM Dagoberto Cormier MD [facility] Your medication list START taking these medications [...] Your Medications These medications were sent to [id number] - [place], [place] - [address] [place] [address] aspirin 81 mg chewable tablet metoprolol tartrate 25 mg tablet Doris is allergic to penicillins and sulfa (sulfonamide antibiotics). Disposition: Home or Self Care () Discharge Condition: Good Code Status: Full Code Diagnostic Results Hematology: Results from last 7 days Lab Units 11/05/24 0757 11/05/24 0756 11/04/24 1035 11/04/24 0529 WBC AUTO 10*3/uL -- 8.65 -- 8.24 HEMOGLOBIN g/dL -- 11.9* -- 11.6* HEMATOCRIT % -- 40.0 -- 39.5 MCV fL -- 71.7* -- 72.6* PLATELETS AUTO 10*3/uL -- 311 -- 308 INR 2.03* -- 2.42* -- Chemistry: Results from last 7 days Lab Units 11/05/24 0757 11/03/24 2247 SODIUM mmol/L 139 136 POTASSIUM mmol/L 4.1 3.8 CHLORIDE mmol/L 105 104 CO2 mmol/L 28 24 BUN mg/dL 20 21 CREATININE mg/dL 1.32* 1.11 GLUCOSE mg/dL 101* (more content not included)... [facility] 11-05-2024 Note Pharmacy Consult for Warfarin (Coumadin) Management - Daily Progress Note Doris Luis is a 59 y.o. male admitted for Unstable angina ([facility]). Pharmacy was consulted warfarin dosing and monitoring for DVT, PE, or APS with goal INR 2-3. Patient has a past medical history of Coronary artery disease, Deep vein thrombosis ([facility]), Diabetes mellitus ([facility]), Hyperlipidemia, and Hypertension. Home Regimen Fri SAT SUN Dose 4 mg 4 mg 4 mg 4 mg 4 mg 4 mg 5 mg Source: [facility] INR Results from last 7 days [...] for the consult. Cliff Bernardo, PharmD, 11/05/24 [facility] 11-05-2024 Note Cardiovascular Labor atory [...] circulation shows luminal irregularities. INDICATIONS: Unstable angina [facility] 11-05-2024 Note Cardiology Inpatient Progress [...] testing. He was then transferred to the [facility] for further evaluation and management [...] and S2 presen (more content not included)... [facility] 11-04-2024 Note Hospital Medicine Daily Progress Note - 11/04/2024 11:23 AM; Room: [address] [place] [address] Admission: 11/03/2024 10:00 PM; Length of stay: 1 days THE HOSPITALIST TEAM PREFERS TO USE modulR FOR NON-URGENT COMMUNICATION 7AM-7PM. IF I DO NOT RESPOND WITHIN 20 MINUTES OR URGENT MATTERS, PLEASE CALL THROUGH THE OUTSIDE SALES CONSULTANT. FROM 7PM-7AM, PLEASE PAGE [phone](COVR). Code Status: Full Code Barriers to Discharge: [...] Active Inpatient Problems Principal Problem: Unstable angina ([facility]) Active Problems: Mixed hyperlipidemia Type 2 diabetes mellitus without complication, without long-term current use of insulin ([facility]) S/P insertion of IVC (inferior vena caval) filter APS (antiphospholipid syndrome) ([facility]) Primary hypertension History of DVT (deep vein thrombosis) Hx of pulmonary embolus Syncope and collapse Coronary artery disease involving comanche coronary artery of comanche heart without angina pectoris Assessment and Plan Unstable angina ([facility]) -Patient with an episode of chest pain while making his grandchildren dinner this past Friday which subsided after 10 to 15 minutes -Elevated troponin of 47 at [facility] -CXR completed outside hospital shows no acute process -EKG completed at [facility] shows normal sinus rhythm -Repeat troponins here [...] event monitor outpatient Coronary artery disease involving comanche coronary artery of comanche heart without angina pectoris s/p PCI Mixed hyperlipidemia -Continue Crestor Type 2 diabetes mellitus without complication, without long-term current use of insulin ([facility]) Glucose checks ACHS Continue sliding scale insulin APS (antiphospholipid syndrome) ([facility]) -Warfarin on hold for cardiac cath, continue [...] ALT U/L 14 (more content not included)... [facility] 11-04-2024 Note Chart reviewed asses sment plan reviewed with nurse practitioner and agreed [facility] 11-04-2024 Note -Continue metoprolol , lisinopril, amlodipine [facility] 11-04-2024 Note -Patient with an epi sode of chest pain while making his grandchildren dinner this past Friday which subsided after 10 to 15 minutes -Was found to have an elevated troponin of 47 at [facility] earlier today and was transferred to [facility] for possible heart cath -Patient reports most recent cardiac testing was around 2 years ago -CXR completed outside hospital shows no acute process -EKG completed at [facility] shows normal sinus rhythm -Repeat troponin at [facility] found to be 0.03, will continue to trend -Will start patient on heparin infusion if need for cardiac cath arises as patient does take warfarin at home [facility] 11-04-2024 Note -Patient reports pos itive orthostatic vitals in his cardiology office earlier today and states that all of his syncopal events have been when he is gone from a sitting to a standing position -Patient may benefit from event monitor outpatient [facility] 11-04-2024 Note -Warfarin on hold in case of procedure, continue heparin infusion [facility] 11-04-2024 Note -ISS, ACHS [facility] 11-04-2024 Note -Continue Crestor [facility] 11-04-2024 Note -S/p PCI [facility] 11-04[facility] Note -Warfarin on hold se condary to possible procedure, continue heparin infusion [facility] 11-03-2024 Note Hospital Medicine History and Physical 11/03/2024 10:54 PM THE HOSPITALIST TEAM PREFERS TO USE modulR FOR NON-URGENT COMMUNICATION 7AM-7PM. IF I DO NOT RESPOND WITHIN 20 MINUTES OR URGENT MATTERS, PLEASE CALL THROUGH THE OUTSIDE SALES CONSULTANT. FROM 7PM-7AM, PLEASE PAGE [phone](COVR). Chief Complaint Direct admission from [facility] with chief complaint of chest pain History of Present Illness Doris Luis is an 59 y.o. male who came from home with past medical history of CAD s/p PCI with stenting, history of DVT/PE after COVID with IVC filter in place, hypertension, hyperlipidemia, antiphospholipid syndrome, DM2 presents as a direct admission from [facility] with a chief complaint of chest pain. Patient was seen in the [facility]ology clinic today for a follow-up. He [...] over the last 4 to 5 months. Warp Knit Operator sent patient to the [facility] emergency department where he was found to have an elevated troponin so he was sent to [facility] for further evaluation. Review of [...] and Plan Assessment & Plan Unstable angina (CMS/HCC) -Patient with an episode of chest pain while making his grandchildren dinner this past Friday which subsided after 10 to 15 minutes -Was found to have an elevated troponin of 47 at [facility] earlier today and was transferred to [facility] for possible heart cath -Patient reports most recent cardiac testing was around 2 years ago -CXR completed outside hospital shows no acute process -EKG completed at [facility] shows normal sinus rhythm -Repeat troponin at [facility] found to be 0.03, will [...] event monitor outpatient Coronary artery disease involving comanche coronary artery of comanche heart without angina pectoris -S/p PCI with stenting Mixed hyperlipidemia -Continue Crestor Type 2 diabetes mellitus without complication, without long-term current use of insulin ([facility]) -ISS, ACHS APS (antiphospholipid syndrome) ([facility]) -Warfarin on hold in case of procedure, continue heparin infusion Primary hypertension -Continue metoprolol, lisinopril, amlodipine History of DVT (deep vein thrombosis) Hx of pulmonary embolus 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 [facility] 11-03-2024 Note [facility] Cardiology Clinic Note Chief Complaint: Patient [...] values have be (more content not included)... [facility] 08-03-2024 Note Cardiovascular Medic [facility] SUBJECTIVE Chief Complaint Patient presents with Coronary [...] Problem List Diagnosis Coronary artery disease involving comanche coronary artery of comanche heart without angina pectoris Benign essential HTN [...] General: Normal ran (more content not included)... [facility] 08-03-2024 Note Patient here for [...] All other systems reviewed and are negative. [facility] 12-30-2023 Evaluation + Plan note Diagnostic Tests PendingElectrolyte Panel 12/30/23 [facility] Margie 12-30-2023 Hospital Discharge instructions Patient Education [...] include: ?8 oz (237 mL) of milk, qildymo-kscjgsbdzbzk-ggsqa milk, and calcium-fortifiedfruit juice. Calcium-fortified means that [...] ?Spinach (cooked), rhubarb, beets, sweet potatoes, and Israeli chard. ?Peanuts. ?Potato chips, nauruan fries, and baked potatoes with skin on. ?Nuts and nut products. ?Chocolate. If you regularly take a diuretic medicine, make sure to eat at least 1 or 2 servings of fruits or vegetables that are high in potassium each day. These include: ?Avocado. ?Banana. ?[place], prune, carrot, or tomato juice. ?Baked potato. [...] magnesium, fish oil, or vitamin B6. Take ajmj-cjm-nvbfjex and prescription medicines only as told by [...] provider. Document Revised: 12/26/2022 Document Reviewed: 12/26/2022 [employer] Patient Education 2022 [employer]. Follow Up Care 02/18/2023 15:25:52 With:XIOMARA England APRN, [place] [facility], JOSE, URL Address: When:Within 1 Year(s) Comments:w/PSA With:EDGAR NAVA PA-C, URL Address: [address] [place] [address] When: Unknown With:XIOMARA England APRN, [facility], JOSE, URL Address: When: Unknown [facility] 08-29-2023 Note Chief Complaint consultation for [...] managed by Dr Caballero. 2. Anticoagulated (Z79.01: skilled nursing (current) use of 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) see # 1 [...] obstructing calculus Hyperten (more content not included)... [facility] Comment on above: Result Comment: Elec [...] (08/09/2019), Cystoscopic insertion (more content not included)... [facility] Comment on above: Result Comment: Zainab rahman Signed By: ANNAMARIE ISRAEL, Jamil Maldonado\Date and [...] at home: Medicines ? Take or apply fppo-pog-dbqiqen and prescription medicines only as told by [...] and water are not available, use hand mailroom coordinator. ? Change your dressing as told by [...] by your health (more content not included)... [facility] 07-03-2022 Hospital Discharge instructions Patient Education 07/03/2022 13:32:37 Kidney Stones, Icsv-as-Nrmm Kidney Stones Kidney stones are rock-like masses [...] Follow these instructions at home: Medicines Take kekd-yen-btxnhsn and prescription medicines only as told by [...] 03/03/2009 Document Revised: 02/01/2020 Document Reviewed: 02/01/2020 [employer] Patient Education 2020 [employer]. 07/03/2022 13:32:36 Calorie Counting for Weight Loss [...] 09/15/2006 Document Revised: 06/04/2019 Document Reviewed: 08/15/2017 [employer] Patient Education 2020 [employer]. Follow Up Care 06/26/2021 10:22:59 With:EDGAR NAVA PA-C, URL Address: [address] [place] [address] When: Unknown [facility] 07-03-2022 Evaluation + Plan note Diagnostic Tests PendingPSA Total 07/03/22 [facility] 01-17-2022 Evaluation + Plan note Extrac jing from: Title:ANES POSTOP MAC/GEN NOTE Author:Fabián Robertson JR Date:01/17/22 Plan Transfer/ Discharge: Patient can be discharged from PACU when criteria met. Condition good. Extracted from: Title:ANES PREOP GEN ADULT NOTE Author:Fabián Turcios JR, DO Date:01/17/22 Plan [employer] (ASA) physical status classification: Class III. Anesthetic Preoperative Plan Anesthesia: General. . Anesthetic plan, risks, benefits, and alternatives discussed with the patient and/or family. Pt. and/or family present and agree to proceed as planned.. Discussed the importance of abstaining from tobacco products, and offered counseling if desired. Future Appointments Appointment Date:2022 10:45:00 AM Scheduled Provider:David Pacheco Jr., MD Location:[facility] Appointment Type:URO Office Visit [facility]04-21-2022 Hospital Discharge instructions Patient Education 01/17/2022 11:37:55 [...] Up Care 12/31/2021 11:37:23 With:EDGAR NAVA Address: [address] [place] [address]. [place] [address] Business (1) When:6 weeks Comments:KUB x-ray with next visit. [facility]03-29-2022 Hospital Discharge instructions Patient Education 12/25/2021 09:52:56 [...] urethra. Follow these instructions at home: Take rtke-ejc-wniyzsb and prescription medicines only as told by [...] 09/15/2006 Document Revised: 08/10/2019 Document Reviewed: 10/20/2017 [employer] Patient Education [employer] Follow Up Care 12/24/2021 14:06:11 With:Junior Mccollum MD, David Darling URO Address: When: Unknown Comments:schedule ESWL [facility] 11-29-2021 NoteHNO ID: [id number] Author: Tracey Eagle MD Service: ? Author Type: Physician Type: Progress Notes Filed: 08/27/2021 10:02 AM Note Text: [facility]al[facility] Patient: Doris Luis Provider Tracey Eagle MD : 1965 Location: [facility] Date of Service: August 27, [...] LUCACREA, LUCREACL, LWK, LUSUL in the last [id number] hours. 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 No current facility-administered medications for [facility] Future Appointments Appointment Date:2022 10:45:00 AM Scheduled Provider:David Pacheco Jr., MD Location:[facility] Appointment Type:URO Office Visit [facility] evaluation + Plan note Future Appointments Appointment Date:01/17/2022 10:00:00 AM Scheduled Provider: Location:[facility] Appointment Type:Surgery FT Appointment Date:2022 10:45:00 AM Scheduled Provider:David Pacheco Jr., MD Location:[facility] Appointment Type:URO [facility] Future Appointments Appointment Date:08/26/2023 10:00:00 AM Scheduled Provider:EDGAR NAVA PA-C Location:[facility] Appointment Type:URO Office Visit General Surgery Margie Evaluation + Plan note Future Appointments Appointment Date:09/30/2023 02:30:00 PM Scheduled Provider:EDGAR NAVA PA-C Location:[facility] Appointment Type:URO Office Visit [facility] course Narrative No data available for this section [facility] Hospital Discharge instructions No data available for this section [facility] No data available for this section [facility] [place] Summary Purpose Family History No Family History [...] section and content) DATE CREATED AUTHOR 01/21/2019 [facility] DATE CREATED AUTHOR AUTHOR'S ORGANIZ ATION 11/06/2021 [facility] DATE CREATED AUTHOR AUTHOR'S ORGANIZ ATION 04/08/2022 [facility] DATE CREATED AUTHOR AUTHOR'S ORGANIZ ATION 02/08/2023 [facility] DATE CREATED AUTHOR AUTHOR'S ORGANIZ ATION 03/09/[address] [facility] DATE CREATED AUTHOR AUTHOR'S ORGANIZ ATION 02/11/2024 Ken Le [facility] DATE CREATED AUTHOR AUTHOR'S ORGANIZ ATION 02/08/2025 [facility] Patient Care team informatio n (unrecognized section and content) 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 [employer] provides no warranty or guarantee of the accuracy or completeness of information in this document.
[2025-03-02 11:27] LABS: Basophils Percent Auto 0.4 % (0.2-2.0); Eosinophils Percent Auto 0.1 % (0.9-7.0); Hematocrit 38.7 % (42.0-54.0); Hemoglobin 11.5 g/dL (14.0-18.0); Immature Granulocytes Abs Auto 0.03 10^3/uL (0.00-0.03); Immature Granulocytes Pct Auto 0.4 % (0.0-0.5); Lymphocytes Absolute Auto 1.7 10^3/uL (1.2-3.8); Lymphocytes Percent Auto 21.6 % (20.5-60.0); Mean Corpuscular HGB Conc 29.7 g/dL (29.9-35.2); Mean Corpuscular Hemoglobin 21.3 pg (25.9-34.0); Mean Corpuscular Volume 71.8 fL (80.0-94.0); Mean Platelet Volume 9.5 fL (9.5-13.5); Monocytes Absolute Auto 0.5 10^3/uL (0.3-0.8); Monocytes Percent Auto 6.7 % (1.7-12.0); Neutrophils Absolute Auto 5.4 10^3/uL (1.4-6.5); Neutrophils Percent Auto 70.8 % (43.0-75.0); Platelet Count 269 10^3/uL (150-450); Red Blood Count 5.39 10^6/uL (4.70-6.10); Red Cell Distribution Width 20.8 % (11.0-15.0); White Blood Count 7.6 10^3/uL (4.0-11.0)
[2025-03-02 12:10] LABS: BUN Creatinine Ratio 17.2; Calcium 9.1 mg/dL (8.5-10.1); Carbon Dioxide 27.5 mmol/L (21.0-32.0); Chloride 107 mmol/L (98-107); Estimated GFR (African America >60 (>=60 mL/min/1.73m^2); Estimated GFR (Non-African Ame 57 (>=60 mL/min/1.73m^2); Glucose 131 mg/dL (74-106); Potassium 4.5 mmol/L (3.5-5.1); Sodium 145 mmol/L (136-145)
== END 2025-03-02 10:54 | disposition home or self-care (01) ==
PROVIDERS: PCP Family Medicine; Visit Provider Internal Medicine Cardiovascular Disease
DX: Z01.812 Encounter for preprocedural laboratory examination (principal); Z01.818 Encounter for other preprocedural examination
CPT/HCPCS: 36415; 80048; 85025

== ENCOUNTER 2025-03-02 10:58 | Outpatient (OUT) | payer OTHER, MEDICARE, SELFPAY ==
--- OUTSIDE RECORDS SUMMARY | 2025-03-02 11:06 | XMS_ITS | Clinical Summary ---
Author Organization [facility] Address [address] [place] [address] Care Team Providers Care Clothing Man Name Role Phone eDlon Simmons MD Primary Care Provider [phone] Allergies Active Allergy Reactions Criticality Noted Date Comments Penicillins 01/18/2019 Medications atorvastatin (LIPITOR) 20 MG tablet Take 20 mg by mouth daily Active metFORMIN (GLUCOPHAGE-XR) 500 MG extended release tablet Take 500 mg by mouth 2 times daily Active omeprazole (PRILOSEC) 20 MG delayed release capsule Take 20 mg by mouth daily Active venlafaxine (EFFEXOR XR) 75 MG extended release capsule Take 75 mg by mouth daily Active vitamin D (CHOLECALCIFERO L) 1000 UNIT TABS tablet Take 1,000 Units by mouth daily Active enoxaparin (LOVENOX) 100 MG/ML injection Inject into the skin 2 times daily Active metoprolol (LOPRESSOR) 100 MG tablet Take 100 mg by mouth 2 times daily Take 1 tab in AM and 1/2 tab (50mg) at night Active SUMAtriptan (IMITREX) 100 MG tablet Take 100 mg by mouth as needed for Migraine Active tiZANidine (ZANAFLEX) 4 MG tablet Take 1 tablet by mouth every 8 hours as needed (muscle spasm) 30 tablet 01/19/2019 Active Active Problems Problem Noted Date Diagnosed Date Lumbar radiculopathy 01/18/2019 Family History Medical History Relation Name Comments Alcohol Abuse Father Heart Failure Mother Relation Name Status Comments Father Mother (Age 78) Social History Tobacco Use Types Packs/Day Years Used Date Smoking Tobacco: Former Cigarettes Smokeless Tobacco: Never Comments:age 11 to 20 Alcohol Use Standard Drinks/Week Comments Yes 0 (1 standard drink = 0.6 oz pur e alcohol) rare Sex and Gender Information Value Date Recorded Sex Assigned at Not on file Legal Sex Male 9:38 AM EST Gender Identity Not on file Sexual Orientation Not on file Last Filed Vital Signs Vital Sign Reading Time Taken Comments Blood Pressure 109/68 01/19/2019 11:27 AM EDT Pulse 53 01/19/2019 11:27 AM EDT Temperature 37.1 C (98.8 F) 01/19/2019 11:27 AM EDT Respiratory Rate 17 01/19/2019 11:27 AM EDT Oxygen Saturation 94% 01/19/2019 11:27 AM EDT Inhaled Oxygen Concentration - - Weight 109.3 kg (241 lb) 01/18/2019 8:33 AM EDT Height 177.8 cm (5' 10 ) 01/18/2019 8:33 AM EDT Body Mass Index 34.58 01/18/2019 8:33 AM EDT Plan of Treatment Not on file Insurance MEDICARE Advance Directives * Full Code (Latest Code Status on File) Date Activated Date Inactivated Comments 01/18/2019 2:09 PM 01/19/2019 7:20 PM Care Teams Clothing Man Relationship Specialty Start Date End Date Delon Simmons MD [address] [place] [address] PCP - General Family Medicine 01/12/19
--- OUTSIDE RECORDS SUMMARY | 2025-03-02 11:06 | XMS_ITS | Encounter Summary ---
Author Organization [facility] Address [address] [place] [address] Care Team Providers Care Gis Physical Scientist Name Role Phone Delon Simmons MD Primary Care Provider [phone] Reason for Visit * Reason Comments Med Refill Encounter Details Date Type Department Care Team (Late st Contact Info) Description 03/14/2023 Refill [facility] Heart at [facility] [address] [place] [address] Shania Sage, SALVATORE [address] [place] [address] Essential hypertension Social History Tobacco Use Types Packs/Day Years [...] Description 03/03/2025 12:55 PM EDT Hospital Encounter [facility] Heart [facility] [place] [facility] [address] [place] [address] Raulito Thompson MD [address] [place] [address] [place] (ventricular tachycardia) (CMS/HCC) 03/03/2025 2:55 PM EDT - 03/03/2025 3:55 PM EDT Surgery [facility] [address] [place] [address] Raulito Thompson MD [address] [place] [address] Electrophysiology procedure [14064 (CPT )] 04/05/2025 3:30 PM EDT Office Visit [facility] Heart [facility] [address] [place] [address] Raulito Thompson MD [address] [place] [address] documented as of this encounter Visit Diagnoses Diagnosis Essential hypertension Unspecified essential hypertension VT (ventricular tachycardia) (CMS/HCC)- Primary Paroxysmal ventricular tachycardia VT (ventricular tachycardia) (CMS/HCC) Paroxysmal ventricular tachycardia documented in this encounter Care Teams Gis Physical Scientist Relationship Specialty Start Date End Date Delon Simmons MD [address] [facility] [address] [address] PCP - General 01/31/23 documented as of this encounter
[2025-03-02 11:44] LABS: INR 1.89; Prothrombin Time 18.8 sec (9.0-11.6)
== END 2025-03-02 10:59 | disposition home or self-care (01) ==
PROVIDERS: PCP Family Medicine; Visit Provider Family Medicine
DX: I82.91 Chronic embolism and thrombosis of unspecified vein (principal)
CPT/HCPCS: 36415; 85610

== ENCOUNTER 2025-05-03 10:35 | Outpatient (RCR) | payer MEDICARE, SELFPAY ==
[2025-05-03 13:00] VITALS: BP 124/82; PULSE 92; TEMP 36.2; O2SAT 96
[2025-05-03] MEDS: PHYTONADIONE (VIT K1) 5 MG in 0.9 % SODIUM CHLORIDE 50 ML 202 MG IV (13:31)
[2025-05-05] MEDS: ENOXAPARIN SODIUM 100 MG/ML SYRINGE SUBQ (16:45)
--- NOTE | 2025-05-05 16:55 | PC.NURSE ---
Addendum entered by Lizeth Mario RN 05/05/25 17:05: Incorrect time. Pt. encounter occurred at 1645. Original Note: 1545: Nurse arrived in MRI holding area to provide stat first dose of medication ordered for five days. Identified using two patient identifiers and confirmation with Imaging staff. States only known allergy is to PCN. Pt. is pleasant and talkative; denies discomfort. Injection given as directed. Declines bandaid to abdomen; no bleeding noted. Discharged ambulatory to private vehicle. Denies additional needs.
== END 2025-05-29 23:59 | disposition home or self-care (01) ==
LOC: INF 10:35
PROVIDERS: PCP Family Medicine; Visit Provider Family Medicine
DX: Z79.01 Long term (current) use of 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 (principal); R31.9 Hematuria, unspecified
CPT/HCPCS: 36415; 80053; 81001; 85025; 85610; 85730; 87086; 96365; 96372; J1650; J3430

== ENCOUNTER 2025-05-03 17:11 | Outpatient (OUT) | payer MEDICARE, SELFPAY ==
[2025-05-03 07:11] LABS: Hematocrit 40.7 % (42.0-54.0); Hemoglobin 12.2 g/dL (14.0-18.0); Immature Granulocytes Abs Auto 0.07 10^3/uL (0.00-0.03); Immature Granulocytes Pct Auto 0.8 % (0.0-0.5); Lymphocytes Absolute Auto 2.4 10^3/uL (1.2-3.8); Mean Corpuscular HGB Conc 30.0 g/dL (29.9-35.2); Mean Corpuscular Hemoglobin 21.7 pg (25.9-34.0); Mean Corpuscular Volume 72.3 fL (80.0-94.0); Platelet Count 378 10^3/uL (150-450); Red Blood Count 5.63 10^6/uL (4.70-6.10); White Blood Count 9.1 10^3/uL (4.0-11.0)
[2025-05-03 07:19] LABS: Alanine Aminotransferase 34 U/L (16-63); Albumin Globulin Ratio 0.9; Albumin Level 3.3 g/dL (3.4-5.0); Alkaline Phosphatase 62 U/L (46-116); Anion Gap 15.6; Aspartate Amino Transferase 20 U/L (15-37); Blood Urea Nitrogen 19.0 mg/dL (7.0-18.0); Calcium 9.1 mg/dL (8.5-10.1); Carbon Dioxide 26.5 mmol/L (21.0-32.0); Chloride 103 mmol/L (98-107); Estimated GFR (African America >60 (>=60 mL/min/1.73m^2); Estimated GFR (Non-African Ame >60 (>=60 mL/min/1.73m^2); Globulin 3.8 g/dL; Glucose 167 mg/dL (74-106); Potassium 5.1 mmol/L (3.5-5.1); Sodium 140 mmol/L (136-145); Total Protein 7.1 g/dL (6.4-8.2)
[2025-05-03 08:08] LABS: INR 6.57; Prothrombin Time 57.8 sec (9.0-11.6)
[2025-05-03 08:09] LABS: Partial Thromboplastin Time 41.3 sec (22.3-36.2)
[2025-05-03 09:08] LABS: Glucose Urine UA NEGATIVE (NEGATIVE)
[2025-05-03 11:02] LABS: Cast Seen? NONE SEEN #/LPF (NONE SEEN); Crystals Seen? None Seen #/HPF (None Seen)
--- OUTSIDE RECORDS SUMMARY | 2025-05-05 06:49 | XMS_ITS | CCD ---
Author Organization [facility] Care Team Providers Care Novelty Maker Name Role Phone EFREM MATSON Admitting Unavailable EFREM MATSON Attending Unavailable NOE CABALLERO Primary Care Unavailable Noe Caballero Primary Care Physician [phone] DAGOBERTO CORMIER Admitting Unavailable DAGOBERTO CORMIER Attending [...] Unavailable HOY ., DR LIU Consulting Unavailable BINGHAMTON, DR EFREM Ventura Consulting Unavailable HOY ., [...] HOY ., DR LIU Primary Care Unavailable [facility], DR MASON Braun Consulting [...] Unavailable Noe Caballero MD Primary Care Provider [phone] Noe Caballero MD Unavailable Jamil DE LUNA Attending Unavailable Orzech, Elsy X Attending Unavailable ALEJANDRO NAVA Attending Unavailab le Orzech, Elsy X Attending Unavailable Orzech, Elsy X Admitting Unavailable Orzech, Elsy X Attending Unavailable Orzech, Elsy X Admitting Unavailable Orzech, Elsy X Attending Unavailable ELIJAH, ALEJANDRO Paniagua Admitting Unavailab le ELIJAH, ALEJANDRO [place] Attending Unavailab le NILL, Jamil Braun Attending Unavailable NILL, Jamil Braun Attending Unavailable Hojud, Noe Referring Unavailable Hoy, Noe Referring Unavailable NILL, Jamil Braun Attending Unavailable Noe Caballero MD Primary Care Provider [phone] NEPTALI DE DIOS Attending Unavailable NIYA, BRIGHT Referring Unavailable ELTAHAWY, EHAB Attending Unavailable TIANA, RAULITO Referring Unavailable MCGOWAN, DIANDRA Referring Unavailable MCGOWAN, DIANDRA Referring Unavailable PIRKL, LISS Referring Unavailable TIANA, RAULITO Admitting Unavailable TIANA, RAULITO Attending Unavailable RICE, AZALEA Referring Unavailable HORANI, NAZANIN Admitting Unavailable MCGOWAN, DIANDRA Attending Unavailable PIRKL, LISS Referring Unavailable ALONDRA, JASVIR Attending Unavailable TIANA, RAULITO Attending Unavailable TIANA, RAULITO Attending Unavailable ELTAHAWY, EHAB Attending Unavailable Allergies Allergy Classification Reported Allergen(s) Allergy Type Date of Onset Reaction(s) Facility (10 sources) Acetaminophen / HYDROcodone; Translations: [acetaminophen-h ydrocodone] Drug Allergy Hallucinations (finding), Migraine (disorder) [facility] (17 sources) Penicillins; Translations: [penicillins] Drug allergy 06-29-20 14 Weal (disorder), Hives, Other [facility] (10 sources) Sulfonamides (Antibiotic); Translations: [sulfa drugs] Drug allergy Weal (disorder) [facility] (1 source) Acetaminophen / HYDROcodone Drug Allergy [facility] (2 sources) Sulfonamides (Antibiotic) Drug allergy (disorder) 11-11-19 15 [facility] (1 source) Penicillin; Translations: [penicillin] Drug Allergy [facility] Repository (4 sources) Acetaminophen / HYDROcodone; Translations: [HYDROCODONE-KODY TAMINOPHEN] Drug Allergy 03-11-20 Hallucinations [facility] (3 sources) Sulfonamides (Antibiotic) Drug Allergy 10-28-19 22 Hives [facility] (1 source) Sulfonamides (Antibiotic); Translations: [SULFA (SULFONAMIDE ANTIBIOTICS)] Propensity to adverse reactions to drug (disorder) 11-03-19 [facility] Repository Medications Current Medications Medication Drug Class(es) [...] Dosing Start Date: 01/17/22 Status: Ordered Albuterol (7 sources) beta2-Adrenergic Agonist Start: 08-15-2023 take 2 puff(s) by inhalation every four hours Albuterol (Eqv-ProAir HFA) 2 puff(s), Inhalation, q4hr Shortness of breath or wheezing, Refill(s) 0 Start Date: 08/15/23 Status: Ordered Start: 02-25-2023 take 2 puff(s) by mo uth every four hours albuterol HFA 90 mcg/act inhaler inhale 2 puffs by mouth every 4 hours if needed for shortness of breath 02/25/2023 Active amLODIPine 5 mg oral tablet (5 sources) Dihydropyridine Calcium Channel Apolinar Start: 04-04-2022 take 1 tablet by mouth once daily amLODIPine (Norvasc) 5 MG tablet amlodipine 5 mg tablet take 1 tablet by mouth once daily 04/04/2022 Active ascorbic acid 500 mg oral tablet (7 sources) Vitamin C Start: 08-29-2020 take 500 mg by mouth once daily Vitamin C 500 mg, Oral, Daily, Refills(s) 0, Prophylaxis Start Date: 08/29/20 Status: Ordered Ascorbic Acid (V itamin C) 500 MG capsule Active aspirin 81 mg delayed release oral tablet (3 sources) Platelet Aggregation Inhibitor, Nonsteroidal Anti-inflammatory Drug take 1 tablet by mouth once daily aspirin 81 MG EC tablet aspirin 81 mg tablet,delayed release take 1 tablet by mouth once daily Active atorvastatin 20 mg oral tablet (5 sources) HMG-CoA Reductase Inhibitor Start: atorvastatin (Lipitor) 20 MG tablet Take 20 mg by mouth. 02/26/2023 Active Start: 05-25-2019 take 1 tablet by geri once daily atorvastatin 40 mg Tab 40 mg = 1 tab(s), Oral, Daily, High cholesterol Start Date: 05/25/19 Status: Ordered Calcium Carbonate-Vit D-Min (QC Loehhlo-Dwctcmijt-Dncj-D3) 333.4-133 MG-UNIT tablet (3 sources) Calcium Carbonat e-Vit D-Min (QC Xggiflr-Avvmhgfdn-Caqh-D3) 333.4-133 MG-UNIT tablet Active celecoxib 200 mg oral capsul e (12 sources) Nonsteroidal Anti-inflammato ry Drug Sta rt: 3 take 1 capsule by mouth twice daily celecoxib (CeleBREX) 200 MG capsule celecoxib 200 mg capsule TAKE 1 CAPSULE BY MOUTH TWICE DAILY 10/29/2022 Active Start: 01-11-2022 take 1 capsule by mo [facility] once daily CeleBREX 200 mg Cap 200 mg = 1 cap(s), Oral, Daily, Other (see comment) Start Date: 01/11/22 Status: Ordered Comment on above: Take 200 mg by mouth 2 times daily. cholecalciferol 0.025 mg oral tablet (3 sources) Vitamin D take 1 tablet by mouth in the morning cholecalciferol (Vitamin D-3) 25 MCG (1000 UT) tablet Take 1,000 Units by mouth in the morning. Active ciprofloxacin 500 mg oral tablet (4 sources) Quinolone Antimicrobial Start: 022 take 1 tablet by mouth in the morning ciprofloxacin (Cipro) 500 MG tablet Take 500 mg by mouth in the morning and 500 mg before bedtime. 09/13/2022 Active Start: 01-17-2022 End: 01-20-2022 take 1 tablet by mouth every twelve hours Cipro 500 mg Tab 500 mg = 1 tab(s), Oral, q12hr, X 3 day(s), # 6 tab(s), Refills(s) 0, Pharmacy: [address], 178, cm, 01/11/22 13:03:00 EDT, Height/Length Dosing, 106, kg, 01/11/22 13:03:00 EDT, Weight Dosing Start Date: 01/17/22 Stop Date: 01/20/22 Status: Ordered docusate sodium 100 mg oral capsule (3 sources) docusate sodium (Stool Softener) 100 MG capsule Active 1 ml enoxaparin sodium 100 mg/ml prefilled syringe (4 sources) Low Molecular Weight Heparin Start: inject 100 [...] Refills(s) 0 Start Date: 09/13/21 Status: Ordered 24 hr isosorbide mononitrate 30 mg extended release oral tablet (3 sources) Nitrate Vasodilator Start: take 1 tablet by mouth in the morning, then take 1 tablet by mouth every twenty-four hours isosorbide mononitrate ER (Imdur) 30 MG 24 hr tablet Take 30 mg by mouth in the morning. 04/04/2022 Active lisinopril 30 mg oral tablet (13 sources) Angiotensin Converting Enzyme Inhibitor Start: 12-16-2 021 take 1 tablet by mouth once daily lisinopril 30 MG tablet lisinopril 30 mg tablet take 1 tablet by mouth once daily 11/26/2022 Active Comment on above: Take 30 mg by mouth daily. metFORMIN hydrochloride 500 mg oral tablet (9 sources) Biguanide Start: 019 take 1 tablet by mouth at mealtime metFORMIN (Glucophage) 500 MG tablet Take 500 mg by mouth in the morning. Take with meals. 10/20/2022 Active take 1 tablet by geri th twice daily at mealtime metFORMIN (GLUCOPHAGE) 500 mg tablet Alexandr e 500 mg by mouth 2 times daily with meals. 0 Active Comment on above: Take 500 mg by mouth 2 times daily with meals. metoprolol tartrate 100 mg oral tablet (13 sources) beta-Adrenergic Apolinar Start: 02-26-2023 take 1 tablet by mouth twice daily metoprolol tartrate 100 mg Tab 100 mg = 1 tab(s), Oral, BID, Refills(s) 0 Start Date: 02/26/23 Status: Ordered Start: 08-26-2022 take 1 tablet by geri th twice daily metoprolol tartrate (Lopressor) 50 MG tablet metoprolol tartrate 50 mg tablet take 1 tablet by mouth twice a day for 90 DAYS 08/26/2022 Active Start: 09-13-2021 take 1 tablet by geir th twice daily metoprolol 50 mg ER [...] daily. multivitamin with iron (4 sources) Start: 08-15-20 take 1 tablet by mouth once daily multivitamin with iron 1 tab(s), Oral, Daily, Refill(s) 0 Start Date: 08/15/23 Status: Ordered ofloxacin 3 mg/ml ophthalmic solution (3 sources) Quinolone Antimicrobial ofloxacin (Ocuflox) 0.3 % ophthalmic solution Administer 1 drop into the right eye in the morning and 1 drop at noon and 1 drop in the evening and 1 drop before bedtime. Active omeprazole 20 mg delayed release oral capsule (10 sources) Proton Pump Inhibitor Start: 10-24-19 take 2 capsules by mouth once daily omeprazole (PriLOSEC) [address] capsule omeprazole 20 mg capsule,delayed release TAKE 2 CAPSULES BY MOUTH DAILY 10/24/2022 Active Start: 09-13-2021 omeprazole 20 mg Cap-DR 40 [...] for 30 day(s), 60 tab(s), Refill(s) 6, [facility], 178, cm, 12/30/23 11:22:00 EDT, Height/Length Dosing, 109, kg, 12/30/23 11:22:00 EDT, Weight Dosing Start Date: 12/30/23 Stop Date: 07/27/24 Status: Ordered Prednisolon-Moxifl ox-Bromfenac 1-0.5-0.075 % solution (2 sources) Start: 03-08-2025 Prednisolon-Moxiflo x-Bromfenac 1-0.5-0.075 % solution Indications: Age-related nuclear cataract of right eye Administer 1 drop into affected eye(s) in the morning and 1 drop at noon and 1 drop in the evening and 1 drop before bedtime. 10 mL 1 03/08/2025 Active prednisoLONE acetate 10 mg/ml ophthalmic suspension (3 sources) Corticosteroid Start: 03-11-2023 prednisoLONE acetate (Pred-Forte) 1 % ophthalmic suspension Indications: Combined forms of age-related cataract of left eye Administer 1 drop into the left eye in the morning and 1 drop at noon and 1 drop in the evening and 1 drop before bedtime. 5 mL 1 03/11/2023 Active rosuvastatin calcium 40 mg oral tablet (14 sources) HMG-CoA Reductase Inhibitor Start: 02-26-2023 take 1 tablet by mouth once daily rosuvastatin (Crestor) 40 MG tablet rosuvastatin 40 mg tablet take 1 tablet by mouth once daily 02/26/2023 Active Start: 01-11-2022 take 1 tablet by geri once daily rosuvastatin 10 mg Tab 10 mg = 1 tab(s), Oral, Daily, High cholesterol Start Date: 01/11/22 Status: Ordered Comment on above: Take 10 mg by mouth daily. SUMAtriptan 25 mg oral tablet (12 sources) Serotonin-1b and Serotonin-1d Receptor Agonist Start: 08-15-2023 take 1 tablet by mouth once Imitrex 25 mg Tab 25 mg = 1 tab(s), Oral, Once, Refills(s) 0 Start Date: 08/15/23 Status: Ordered Start: 08-29-2020 take 1 tablet by geri every two hours as needed SUMAtriptan 100 [...] every 2 hours as needed for Migraine. 24 hr venlafaxine 75 mg extended release oral capsule (13 sources) Serotonin and Norepinephrine Reuptake Inhibitor Start: 08-29-20 take 1 capsule by mouth once daily venlafaxine XR (Effexor XR) 75 MG 24 hr capsule venlafaxine ER 75 mg capsule,extended release 24 hr take 1 capsule by mouth once daily 08/30/2022 Active Start: 08-29-2020 take 1 capsule by mo [facility] once daily venlafaxine 75 mg Cap-ER 75 mg = 1 cap(s), Oral, Daily, take 1 capsule by mouth once daily, Anxiety Start Date: 08/29/20 Status: Ordered take 1 tablet by geri twice daily venlafaxine (EFFEXOR) 75 mg tablet Take 75 mg by mouth 2 times daily. 0 Active Comment on above: Take 75 mg by mouth 2 times daily. Vitamin D3 5000 intl units oral capsule (8 sources) Start: 01-11-2022 take 1 capsule by mouth once daily at mealtime Vitamin D3 5000 intl units oral capsule 125 mcg = 1 cap(s), Oral, Daily, with food, Prophylaxis Start Date: 01/11/22 Status: Ordered warfarin sodium 4 mg oral tablet (18 sources) Vitamin K Antagonist Start: 01-11-2022 Coumadin [...] Blood Thinner Start Date: 05/25/19 Status: Ordered Start: 12-28-1997 take 1 tablet by [facility] every other day warfarin (Coumadin) 4 MG tablet warfarin 4 mg tablet take 1 tablet by mouth every other day --EXCEPT TAKE 5 MG TABLET ON Friday12/28/1997 Active Comment on above: Take 1 tab p.o. adela y Zinc (4 sources) Start: 08-29-2020 take 100 mg by mouth once daily Zinc 100 mg, Oral, Daily, Refills(s) 0, Prophylaxis Start Date: 08/29/20 Status: Ordered Completed/Discontinued Medications Medication Drug Class(es) Dates Sig (Normalized) Sig (Original) Vitamin D 1000 intl units Tab (1 source) Start: 05-25-2019 take 1 tablet by mouth once daily Vitamin D 1000 intl units Tab 1,000 International_Unit = 1 tab(s), Oral, Daily, Prophylaxis Start Date: 05/25/19 Status: Ordered Problems Active Problems Problem Classification Problem Date Documented Da te Episodic/Chronic Abdominal pain (9 sources) Flank pain 06-26-2021 Episodic Anxiety disorders (20 sources) Anxiety; Translations: [Anxiety disorder] Onset: 3 05-25-2019 Chronic Cataract (9 sources) Bilateral age-related nuclear cataracts; Translations: [Age-related nuclear cataract, bilateral] Onset: 3 Resolved: 5 03-11-2023 Chronic Coagulation and hemorrhagic disorders (8 sources) Antiphospholipid syndrome; Translations: [Antiphospholipid syndrome] Onset: 2 02-26-2023 Chronic Coronary atherosclerosis and other heart disease (20 sources) Coronary arteriosclerosis; Translations: [Atherosclerotic heart disease of [place] coronary artery without angina pectoris] Onset: 9 07-19-2019 Chronic Diabetes mellitus with complications (4 sources) Type 2 diabetes mellitus with other specified complication; Translations: [Type 2 diabetes mellitus in obese] Onset: 0 06-29-2024 Chronic Diabetes mellitus without complication (9 sources) Diabetes mellitus 05-25-2019 Chronic Disorders of lipid metabolism (20 sources) Hypercholesterolemia; Translations: [Hyperlipidemia, unspecified] Onset: 2 05-25-2019 Chronic Esophageal disorders (16 sources) Gastroesophageal reflux disease; Translations: [Gastroesophageal reflux disease without esophagitis] Onset: 2 07-22-2019 Chronic Essential hypertension (20 sources) Hypertensive [...] sources) Long-term current use of anticoagulant; Translations: [custodial (current) use of 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] Onset: 2 Episodic [...] EMBOLISM THROMBOSIS UNS VEIN] Onset: 3 Chronic Rheumatoid arthritis and related disease (4 sources) [...] Unclassified (3 sources) Patient encounter status 12-29-2023 Unclassified (1 source) Ventricular tachycardia, unspecified; Translations: [Ventricular tachycardia, unspecified] Onset: 5 Past or Other Problems Problem Classification Problem Date Documented Da te Episodic/Chronic Calculus of urinary tract (20 sources) Kidney stone; Translations: [Calculus of kidney] Onset: 12-25-2021 Episodic Nonspecific chest pain (8 sources) Chest pain, unspecified; Translations: [Other chest pain] Onset: 03-07-2022 Episodic Other aftercare (1 source) Encounter for therapeutic drug level monitoring; Translations: [ENC THERAPEUTC DRUG LEVL MONITORING] Onset: 09-24-2022 Episodic Other aftercare (1 source) custodial (current) use of 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; Translations: [SMT OPERATOR CURRNT USE ANTICOAGULANTS] Onset: 09-24-2022 Episodic Other hematologic conditions (3 sources) H/O: blood disorder; Translations: [Personal history of diseases of the blood and blood-forming organs and certain disorders involving the immune mechanism] Onset: 03-11-2023 03-11-2023 Episodic Other lower respiratory disease (3 sources) Other forms of dyspnea; Translations: [OTHER FORMS OF DYSPNEA] Onset: 01-31-2023 Episodic Phlebitis; thrombophlebitis and thromboembolism (19 sources) Deep venous thrombosis; Translations: [H/O: embolism] Onset: 10-28-2021 09-13-2021 Episodic Pulmonary heart disease (2 sources) Personal history of pulmonary embolism; Translations: [Personal history of pulmonary embolism] Onset: 11-03-2024 Episodic Syncope (2 sources) Syncope and collapse; Translations: [Syncope and collapse] Onset: 11-03-2024 Episodic Unclassified (1 source) Ventricular tachycardia, unspecified; Translations: [Ventricular tachycardia, unspecified] Onset: 03-03-2025 Results Test Name Value Interpretation Reference Range Facility Office Visiton 04-05-2025 Follow-up visit [id number] Doris Luis 1965 M Date Provider Department Center 04/05/2025 RAULITO SCHWAB [facility] Family History Problem Relation Age of Onset Coronary artery disease Mother Coronary artery disease Father Family Status - Relation Status Age at Mother Father Sister Alive Brother Alive Level of Service:00032 CO OFFICE/OUTPATIENT ESTABLISHED LOW MDM 20 MIN Normal [facility] US Eye+Orbit - bilateralon 0 03-08-2025 Diagnosis: Cataract both eyes (OU) Testing Indication: Performed for preop measurements in the determination of an intraocular lens (IOL) for both eyes (OU) Test Reliability: Good quality both eyes (OU) Interpretation: Good measurements for intraocular lens (IOL) calculation purposes. Calculation made for both eyes (OU). [facility] Electrophysiology Consult Note [place] [facility] Reason for visit: NSVT/ NS AT HPI: Doris Luis is a 59 y.o. year old with past medical history of CAD s/p PCI, DVT, diabetes mellitus type 2, hypertension, hyperlipidemia, antiphospholipid syndrome s/p IVC filter was recently discharged from [place] after he presented with unstable angina. Cardiac [...] Year: No Utilities: Not At Risk (11/03/2024) [facility] Utilities Threatened with loss of utilities: No Health Literacy: Not on file Allergies: Allergies Allergen Reactions Penicillins Hives Hydrocodone-Acetamino phen Hallucinations and Unknown Other Reaction(s): Migraine Sulfa (Sulfonamide Antibiotics) Hives Weight: 104kg Visit Vitals Smoking Status Former Meds: No current facility-administered medications on file prior to encounter. Current Outpatient Medications on File Prior to Encounter Medication Sig Dispense Refill amLODIPine (Norvasc) 5 mg tablet Take 1 tablet (5 mg) by mouth once daily as directed. 90 tablet 3 celecoxib (CeleBREX) 200 mg [...] EVERY OTHER DAY (EXCEPT 5MG ON SUNDAYS) ROS: Review of Systems Cardiovascular: Positive for chest pain, dyspnea on exertion and leg swelling. Hematologic/Lymphatic : Bruises/bleeds easily. Musculoskeletal: Positive for back pain and joint pain. Gastrointestinal: Positive for constipation. All other systems reviewed and are negative. Physical Exam: Constitutional General Appearance: well-nourished, well-developed, appears stated age Level of Distress: comfortable Eyes TERE Neck Neck: supple, trachea midline Carotid Arteries: bilateral normal upstroke, no bruits Jugular Veins: normal jugular venous pressure Thyroid: not enlarged Lungs Respiratory Effort: unlabored Chest Exam: normal curvature, no thoracic deformity Auscultation: clear, no wheezing, no rales, no rhonchi Cardiovascular Chest wall: Rate And Rhythm: regular Heart Sounds: normal S1, no (more content not included)... Normal [facility] NURSNOTEon 03-03-2025 NURSNOTE Transported to car per wheelchair, no bleeding or hematomas noted, discharged with his . Normal [facility] NURSNOTE Sitting on side of bed, no bleeding or hematoma noted. Dressing for discharge. Ambulating in department without bleeding or hematoma noted. Patient instructed regarding holding pressure on site while in car riding home. Normal [facility] NURSNOTE Dr. Montiel notified of bleeding with ambulation. Pressure being held. States patient can still be discharged after manual pressure held to obtain hemostasis, apply pressure dressing, and show patient where to apply pressure for car ride home. Will notify MD again if unable to maintain hemostasis. Normal [facility] NURSNOTE RN educated pt on d/ c instructions. This included: site care, limited physical activity, resume normal diet, future appointments, medications, and moderate sedation instructions. RN educated pt on when to notify physician and when to go to the hospital. RN educated pt on importance of not overusing stairs at this time and limited weight bearing of 5lbs. RN encouraged pt to voice any questions or concerns, and answered any questions or concerns if pt verbalized. Pt was wheeled off of unit with all of belongings. Normal [facility] Orders Onlyon 03-02-2025 Orders Only [id number] Doris Luis 1965 [facility] Provider Department Center 03/02/2025 [id number], SANA CARD [facility] Family History Problem Relation Age of Onset Coronary artery disease Mother Coronary artery disease Father Family Status - Relation Status Age at Mother Father Sister Alive Brother Alive Normal [facility] Office Visiton 01-18-2025 Follow-up visit [id number] Doris Luis 1965 [facility] Provider Department [place] 01/18/2025 Naima-RAULITO MONTIEL CARD [facility] Family History Problem Relation Age of Onset Coronary artery disease Mother Coronary artery disease Father Family Status - Relation Status Age at Mother Father Sister Alive Brother Alive Level of Service:19671 CO OFFICE/OUTPATIENT NEW HIGH MDM 60 MINUTES Normal [facility] Orders Onlyon 01-18-2025 Orders Only [id number] Doris Luis 1965 [facility] Department Center 01/18/2025 [id number] MIGUEL NICOLAS CARD [facility] Family History Problem Relation Age of Onset Coronary artery disease Mother Coronary artery disease Father Family Status - Relation Status Age at Mother Father Sister Alive Brother Alive Normal [facility] Office Visiton 12-16-2024 Follow-up visit [id number] Doris Luis 1965 [facility] Provider Department Center 12/16/2024 Radha-DAGOBERTO CORMIER CARD [facility] Family History Problem Relation Age of Onset Coronary artery disease Mother Coronary artery disease Father Family Status - Relation Status Age at Mother Father Level of Service:72816 CO OFFICE/OUTPATIENT ESTABLISHED MOD MDM 30 MIN Normal [facility] 36on 11-06-2024 36 Post Discharge Call Good morning, I am Violeta Zuniga RN a lead nurse from [facility]. I am calling you to follow up [...] No Patient Name Doris Luis Date 11/06/24 [facility] Telephoneon 11-06-2024 Telephone [id number] Doris Luis 1965 M Date Provider Department Center 11/06/2024 VIOLETA MOSHER TIAGO [facility] Family History Problem Relation Age of Onset Coronary artery disease Mother Coronary artery disease Father Family Status - Relation Status Age at Mother Father [facility] 30on 11-05-2024 30 The patient is Moderately Stable - Low risk of patient condition declining or worsening The patient's goals for the shift include discharge The clinical goals for the shift include stable vs Over the shift, the patient did make progress toward his goals. [facility] 30 The patient is Moderately Stable - Low risk of patient condition declining or worsening The patient's goals for the shift include comfort/rest The clinical goals for the shift include stable vs Problem: Pain - Adult Goal: Verbalizes/displays adequate comfort level or baseline comfort level Outcome: Progressing Problem: Safety - Adult Goal: Free from fall injury Outcome: Progressing Flowsheets (Taken 11/05/2024 0802) Free from fall injury: Assess patient frequently for physical needs Identify cognitive and physical deficits and behaviors that affect risk of falls Educate patient/family on patient safety, including physical limitations Consider OT/PT consult to assist with strengthening/mobilit y Modify environment to reduce risk of injury Instruct patient to call for assistance with activity based on assessment [place] fall precautions as indicated by assessment Problem: [...] conditions and prevent exacerbation or deterioration Normal [facility] Hiro 11-05-2024 ANES - Attestation signed by Dagoberto Cormier MD at 11/05/2024 1:10 PM Dagoberto Cormier MD, MPH, FACC, [facility], [facility] Interventional Cardiology Pager Email: [email or web address] Patient: Doris Luis Procedure Information Date/Time: 11/05/24 1305 Procedure: Coronary angiography - HIGH INR Location: [facility] SOCIAL MEDIA DEVELOPER 2 [address] / [facility] VASCULAR LAB (Cath) Providers: Dagoberto Cormier MD Clinical information reviewed: Allergies Meds Physical Exam Airway Mallampati: III Cardiovascular Dental Pulmonary Abdominal Anesthesia Plan ASA 3 other (Conscious sedation) intravenous induction Anesthetic plan and risks discussed with patient. Use of blood products discussed with patient who consented to blood products. Plan discussed with attending and fellow. Additional Equipment Requests Normal [facility] ANTI-XA (HEPARIN LEVEL)on HEPARIN UNFRACTIONATED (U/ML) IN PPP BY CHROMOGENIC METHOD 0.99 IU/mL Critically high 0.3-0.7 [facility] Comment on above: Result Comment: [place] roxaban and Apixaban will interfere with the anti Xa assay used to monitor UFH and LMWH. Performed By: #### L [id number] #### [facility] ([facility]) [address] [place] [address] BASIC METABOLIC PANELon Anion gap [Moles/Vol] 10 mmol/L Normal 7-20 [facility] Comment on above: Performed By: #### L [id number] ####[facility] ([facility])[address] [place] [address] Calcium [Mass/Vol] 9.0 mg/dL Normal 8.6-10.3 [facility] Comment on above: Performed By: #### L [id number] ####[facility] ([facility] [place] [address] Chloride [Moles/Vol] 105 mmol/L Normal 98-107 [facility] Comment on above: Performed By: #### L [id number] ####[facility] ([facility] [place] [address] CO2 [Moles/Vol] 28 mmol/L Normal 21-31 [facility] Comment on above: Performed By: #### L [id number] ####[facility] ([facility])[address] [place] [address] Creatinine [Mass/Vol] 1.32 mg/dL High 0.70-1.30 [facility] Comment on above: Performed By: #### L [id number] ####[facility] ([facility])[address] [place] [address] GLOMERULAR FILTRATION RATE ML/MIN/1.73 SQ M.PREDICTED 61.4 mL/min/1.73m*2 Normal >60.0 [facility] Comment on above: Result Comment: The [facility]???s estimated glomerular filtration rate (eGFR) will no [...] of individuals. Performed By: #### L [id number] ####[facility] ([facility])[address] [place] [address] Glucose [Mass/Vol] 101 mg/dL High 70-100 [facility] Comment on above: Performed By: #### L [id number] ####[facility] ([facility])[address] [place] [address] Potassium [Moles/Vol] 4.1 mmol/L Normal 3.5-5.1 [facility] Comment on above: Performed By: #### L [id number] ####[facility] ([facility])[address] [address] Sodium [Moles/Vol] 139 mmol/L Normal 136-145 [facility] Comment on above: Performed By: #### L [id number] ####[facility] ([facility])[address] [facility] [place] [address] Urea nitrogen [Mass/Vol] 20 mg/dL Normal 7-25 [facility] Comment on above: Performed By: #### L [id number] ####[facility] ([facility] [place] [address] UREA NITROGEN/CREATININE (MASS RATIO) IN SER/PLAS 15.2 Normal [facility] Comment on above: Performed By: #### L [id number] ####[facility] ([facility])[address] [place] [address] CBC WITH AUTO DIFFERENTIALon 11-05-2024 Basophils (Bld) [#/Vol] 0.10 10*3/uL Normal 0.00-0.20 [facility] Comment on above: Performed By: #### L [id number] ####[facility] ([facility])[address] [place] [address] Basophils/100 WBC (Bld) 1.2 % High 0.0-1.0 [facility] Comment on above: Performed By: #### L [id number] ####[facility] ([facility])[address] [place] [address] Eosinophils (Bld) [#/Vol] 0.17 10*3/uL Normal 0.00-0.50 [facility] Comment on above: Performed By: #### L [id number] ####[facility] ([facility])[address] [place] [address] Eosinophils/100 WBC (Bld) 2.0 % Normal 0.0-6.0 [facility] Comment on above: Performed By: #### L [id number] ####[facility] ([facility])[address] [place] [address] Erythrocyte distribution width (RBC) [Ratio] 17.4 % High 11.5-15.0 [facility] Comment on above: Performed By: #### L [id number] ####[facility] ([facility])[address] [place] [address] ERYTHROCYTE MEAN CORPUSCULAR HEMOGLOBIN CONCENTRATION (G/DL) BY AUTOMATED 29.8 g/dL Low 32.0-35.0 [facility] Comment on above: Performed By: #### L [id number] ####[facility] ([facility])[address] [place] [address] Hematocrit (Bld) [Volume fraction] 40.0 % Normal 39.0-55.0 [facility] Comment on above: Performed By: #### L [id number] ####[facility] ([facility])[address] [place] [address] Hemoglobin (Bld) [Mass/Vol] 11.9 g/dL Low 13.0-17.0 [facility] Comment on above: Performed By: #### L [id number] ####[facility] ([facility])[address] [place] [address] Immature granulocytes (Bld) [#/Vol] 0.03 10*3/uL Normal 0.00-0.20 [facility] Comment on above: Performed By: #### L [id number] ####[facility] ([facility])[address] [place] [address] Immature granulocytes/100 WBC (Bld) 0.3 % Normal 0.0-1.0 [facility] Comment on above: Performed By: #### L [id number] ####[facility] ([facility])[address] [place] [address] Lymphocytes (Bld) [#/Vol] 2.67 10*3/uL Normal 1.20-4.00 [facility] Comment on above: Performed By: #### L [id number] ####[facility] ([facility])[address] [place] [address] Lymphocytes/100 WBC (Bld) 30.9 % Normal 20.0-45.0 [facility] Comment on above: Performed By: #### L [id number] ####[facility] ([facility])[address] [place] [address] MCH (RBC) [Entitic mass] 21.3 pg Low 27.0-33.0 [facility] Comment on above: Performed By: #### L [id number] ####[facility] ([facility])[address] [place] [address] MCV (RBC) [Entitic vol] 71.7 fL Low 82.0-98.0 [facility] Comment on above: Performed By: #### L [id number] ####[facility] ([facility])[address] [place] [address] Monocytes (Bld) [#/Vol] 0.84 10*3/uL Normal 0.10-1.00 [facility] Comment on above: Performed By: #### L [id number] ####[facility] ([facility] [place] [address] Monocytes/100 WBC (Bld) 9.7 % Normal 5.0-12.0 [facility] Comment on above: Performed By: #### L [id number] ####[facility] ([facility] [place] [address] Neutrophils (Bld) [#/Vol] 4.84 10*3/uL Normal 1.60-7.60 [facility] Comment on above: Performed By: #### L [id number] ####[facility] ([facility])[address] [place] [address] Neutrophils/100 WBC (Bld) 55.9 % Normal 40.0-72.0 [facility] Comment on above: Performed By: #### L [id number] ####[facility] ([facility])[address] [place] [address] NRBC (PER 100 WBCS) BY AUTOMATED COUNT 0.0 % Normal 0 [facility] Comment on above: Performed By: #### L [id number] ####[facility] ([facility] [place] [address] PLATELETS (10*3/UL) IN BLOOD AUTOMATED COUNT 311 10*3/uL Normal 150-400 [facility] Comment on above: Performed By: #### L [id number] ####[facility] ([facility])[address] [place] [address] RBC (Bld) [#/Vol] 5.58 10*6/uL Normal 4.20-5.70 [facility] Comment on above: Performed By: #### L [id number] ####[facility] ([facility])[address] [place] [address] WBC (Bld) [#/Vol] 8.65 10*3/uL Normal 4.00-10.60 [facility] Comment on above: Performed By: #### L [id number] ####[facility] ([facility])[address] [place] [address] HPon 11-05-2024 HP - Attestation signed by Dagoberto Cormier MD at 11/05/2024 1:10 PM Dagoberto Cormier MD, MPH, FACC, [facility], [facility] Interventional Cardiology Pager Email: [email or web address] H&P reviewed. The patient was examined and there are no changes to the H&P. Normal [facility] LIPID PANELon 11-05-2024 CHOL/HDL 3.2 mg/dL Normal [facility] Comment on above: Performed By: #### L [id number] ####[facility] ([facility])[address] [place] [address] Cholesterol [Mass/Vol] 106 mg/dL Low 120-200 [facility] Comment on above: Performed By: #### L [id number] ####[facility] ([facility])[address] [place] [address] Magnesium [Mass/Vol] 130 mg/dL Normal 40-149 [facility] Comment on above: Result Comment: TRIG LYCERIDE REFERENCE RANGE: 20 YEARS AND OLDER CARDIOVASCULAR RISK LESS THAN 150 mg/dL LOW RISK 150 TO 199 mg/dL BORDERLINE RISK 200 mg/dL AND GREATER HIGH RISK Performed By: #### L [id number] ####[facility] ([facility])[address] [place] [address] Magnesium [Mass/Vol] 47 mg/dL Normal 0-160 [facility] Comment on above: Performed By: #### L [id number] ####[facility] ([facility])[address] [place] [address] Magnesium [Mass/Vol] 33 mg/dL Normal 23-92 [facility] Comment on above: Performed By: #### L [id number] ####[facility] ([facility])[address] [place] [address] NON HDL CHOL. (LDL+VLDL) 73 Normal [facility] Comment on above: Performed By: #### L [id number] ####[facility] ([facility])[address] [place] [address] TOTAL VLDL-C 26 mg/dL Normal 0-40 [facility] Comment on above: Performed By: #### L [id number] ####[facility] ([facility])[address] [place] [address] PROTIME-INRon 11-05-2024 INR IN PPP BY COAGULATION ASSAY 2.03 High 0.90-1.10 [facility] Comment on above: Result Comment: ACCC P [...] CHEST 1995;108:231S-246S. Performed By: #### L [id number] ####[facility] ([employer])[address] [place] [address] PROTHROMBIN TIME (PT) IN PPP BY COAGULATION ASSAY 22.6 Seconds High 12.3-14.8 [facility] Comment on above: Performed By: #### L [id number] ####[facility] ([employer])[address] [place] [address] 30on 11-04-2024 30 The patient is Moderately Stable - Low risk of patient condition declining or worsening The patient's goals for the shift include comfort and rest The clinical goals for the shift include stable VS Over the shift, the patient did make progress toward his goals. Normal [facility] 30 The patient is Moderately Stable - Low risk of patient condition declining or worsening The patient's goals for the shift include comfort The clinical goals for the shift include stable vs Over the shift, the patient did not make progress toward the following goals. Barriers to progression include . Recommendations to address these barriers include . Normal [facility] ANTI-XA (HEPARIN LEVEL)on HEPARIN UNFRACTIONATED (U/ML) IN PPP BY CHROMOGENIC METHOD 0.58 IU/mL Normal 0.3-0.7 [facility] Comment on above: Result Comment: [place] roxaban and Apixaban will interfere with the anti Xa assay used to monitor UFH and LMWH. Performed By: #### L [id number] ####[facility] ([employer])[address] [place] [address] HEPARIN UNFRACTIONATED (U/ML) IN PPP BY CHROMOGENIC METHOD 0.41 IU/mL Normal 0.3-0.7 [facility] Comment on above: Result Comment: [place] roxaban and Apixaban will interfere with the anti Xa assay used to monitor UFH and LMWH. Performed By: #### L [id number] #### [facility] ([facility]) [address] [place] [address] HEPARIN UNFRACTIONATED (U/ML) IN PPP BY CHROMOGENIC METHOD <0.10 Invalid Interpretation Code 0.3-0.7 [facility] Comment on above: Result Comment: [place] roxaban and Apixaban will interfere with the anti Xa assay used to monitor UFH and LMWH. Performed By: #### L [id number] #### [facility] ([facility]) [address] [place] [address] CBCon 11-04-2024 Erythrocyte distribution width (RBC) [Ratio] 17.7 % High 11.5-15.0 [facility] Comment on above: Performed By: #### L [id number] #### [facility] ([facility]) [address] [place] [address] ERYTHROCYTE MEAN CORPUSCULAR HEMOGLOBIN CONCENTRATION (G/DL) BY AUTOMATED 29.4 g/dL Low 32.0-35.0 [facility] Comment on above: Performed By: #### L [id number] #### [facility] ([facility]) [address] [place] [address] Hematocrit (Bld) [Volume fraction] 39.5 % Normal 39.0-55.0 [facility] Comment on above: Performed By: #### L [id number] #### [facility] ([facility]) [address] [place] [address] Hemoglobin (Bld) [Mass/Vol] 11.6 g/dL Low 13.0-17.0 [facility] Comment on above: Performed By: #### L [id number] #### [facility] ([facility]) [address] [place] [address] MCH (RBC) [Entitic mass] 21.3 pg Low 27.0-33.0 [facility] Comment on above: Performed By: #### L [id number] #### [facility] ([facility]) [address] [place] [address] MCV (RBC) [Entitic vol] 72.6 fL Low 82.0-98.0 [facility] Comment on above: Performed By: #### L [id number] #### [facility] ([facility]) [address] [place] [address] PLATELETS (10*3/UL) IN BLOOD AUTOMATED COUNT 308 10*3/uL Normal 150-400 [facility] Comment on above: Performed By: #### L [id number] #### [facility] ([facility]) [address] [place] [address] RBC (Bld) [#/Vol] 5.44 10*6/uL Normal 4.20-5.70 [facility] Comment on above: Performed By: #### L [id number] #### [facility] ([facility]) [address] [place] [address] WBC (Bld) [#/Vol] 8.24 10*3/uL Normal 4.00-10.60 [facility] Comment on above: Performed By: #### L [id number] #### [facility] ([facility]) [address] [place] [address] CONSULTon 11-04-2024 CONSULT - Attestation with edits [...] postural changes. Patient is following Dr. Cormier toby maker as out patient setting. He was sent to the hospital by cardiology and found to have elevated troponin. He was then transferred to the [facility] for further evaluation and management Vitals were [...] mg 650 mg oral q6h PRN Liss Bales, CHEMICAL PROCESSING TECHNICIAN amLODIPine (Norvasc) tablet 5 mg 5 mg oral Daily Liss Pirkl, CHEMICAL PROCESSING TECHNICIAN 5 mg at 11/04/24 0942 heparin infusion 100 units/mL in D5W 0-28 Units/kg/hr intravenous Continuous Lissrodney Bales, CHEMICAL PROCESSING TECHNICIAN 15.5 mL/hr at 11/04/24 0000 15 Units/kg/hr at 11/04/24 0000 lisinopril tablet 30 mg 30 mg oral Daily (more content not included)... [facility] HPon 11-04-2024 HP - Attestation signed [...] postural changes. Patient is following Dr. Cormier toby maker as out patient setting. He was sent to the hospital by cardiology and found to have elevated troponin. He was then transferred to the [facility] for further evaluation and management Vitals were [...] 650 mg oral q6h PRN Liss Pirkl, CHEMICAL PROCESSING TECHNICIAN amLODIPine (Norvasc) tablet 5 mg 5 mg oral Daily Liss Pirkl, CHEMICAL PROCESSING TECHNICIAN 5 mg at 11/04/24 0942 heparin infusion 100 units/mL in D5W 0-28 Units/kg/hr intravenous Continuous Liss Pirkl, CHEMICAL PROCESSING TECHNICIAN 15.5 mL/hr at 11/04/24 0000 15 Units/kg/hr at 11/04/24 0000 lisinopril tablet 30 mg 30 mg oral Daily Lexus (more content not included)... Normal [facility] PLATELET COUNTon 11-04-2024 PLATELETS (10*3/UL) IN BLOOD AUTOMATED COUNT 307 10*3/uL Normal 150-400 [facility] Comment on above: Performed By: #### L [id number] #### [facility] ([facility]) [address] [place] [address] PROTIME-INRon 11-04-2024 INR IN PPP BY COAGULATION ASSAY 2.42 High 0.90-1.10 [facility] Comment on above: Result Comment: ACCC P [...] 1995;108:[id number]. Performed By: #### L [id number] #### [facility] ([facility]) [address] [place] [address] PROTHROMBIN TIME (PT) IN PPP BY COAGULATION ASSAY 25.8 Seconds High 12.3-14.8 [facility] Comment on above: Performed By: #### L [id number] #### [facility] ([facility]) [address] [place] [address] TROPONIN Ion 11-04-2024 Troponin I.cardiac [Mass/Vol] 0.02 ng/mL Normal 0.00-0.04 [facility] Comment on above: Performed By: #### L [id number] #### [facility] ([facility]) [address] [place] [address] Troponin I.cardiac [Mass/Vol] 0.03 ng/mL Normal 0.00-0.04 [facility] Comment on above: Performed By: #### L [id number] #### [facility] ([facility]) [address] [place] [address] Troponin I.cardiac [Mass/Vol] 0.03 ng/mL Normal 0.00-0.04 [facility] Comment on above: Performed By: #### L [id number] #### [facility] ([facility]) [address] [place] [address] 30on 11-03-2024 30 The patient is Moderately Stable - Low risk of patient condition declining or worsening The patient's goals for the shift include Comfort The clinical goals for the shift include VSS Over the shift, the patient did make progress toward his goals. Normal [facility] 30 The patient is Moderately Stable - Low risk of patient condition declining or worsening The patient's goals for the shift include VSS The clinical goals for the shift include Comfort Normal [facility] APTTon 11-03-2024 ACTIVATED PARTIAL THROMBOPLASTIN TIME IN PPP BY COAGULATION ASSAY 27.0 Seconds Normal 25.0-35.0 [facility] Comment on above: Order Comment: Basel ine aPTT before initiating heparin infusion. Result Comment: Clin ical significance of the APTT is questionable in the presence of heparin. Performed By: #### L [id number] #### [facility] ([facility]) [address] [place] [address] B-TYPE NATRIURETIC PEPTIDEon 11-03-2024 Natriuretic peptide B (Bld) [Mass/Vol] 37 pg/mL Normal 0-100 [facility] Comment on above: Performed By: #### L [id number] #### [facility] ([facility]) [address] [place] [address] CBC WITH AUTO DIFFERENTIALon 11-03-2024 Basophils (Bld) [#/Vol] 0.07 10*3/uL Normal 0.00-0.20 [facility] Comment on above: Performed By: #### L [id number] #### [facility] ([facility]) [address] [place] [address] Basophils/100 WBC (Bld) 0.9 % Normal 0.0-1.0 [facility] Comment on above: Performed By: #### L [id number] #### [facility] ([facility]) [address] [place] [address] Eosinophils (Bld) [#/Vol] 0.13 10*3/uL Normal 0.00-0.50 [facility] Comment on above: Performed By: #### L [id number] #### [facility] ([facility]) [address] [place] [address] Eosinophils/100 WBC (Bld) 1.6 % Normal 0.0-6.0 [facility] Comment on above: Performed By: #### L [id number] #### [facility] ([facility]) [address] [place] [address] Erythrocyte distribution width (RBC) [Ratio] 17.2 % High 11.5-15.0 [facility] Comment on above: Performed By: #### L [id number] #### [facility] ([facility]) [address] [place] [address] ERYTHROCYTE MEAN CORPUSCULAR HEMOGLOBIN CONCENTRATION (G/DL) BY AUTOMATED 29.7 g/dL Low 32.0-35.0 [facility] Comment on above: Performed By: #### L [id number] #### [facility] ([facility]) [address] [place] [address] Hematocrit (Bld) [Volume fraction] 39.0 % Normal 39.0-55.0 [facility] Comment on above: Performed By: #### L [id number] #### [facility] [address] [place] [address] Hemoglobin (Bld) [Mass/Vol] 11.6 g/dL Low 13.0-17.0 [facility] Comment on above: Performed By: #### L [id number] #### [facility] ([facility]) [address] [place] [address] Immature granulocytes (Bld) [#/Vol] 0.01 10*3/uL Normal 0.00-0.20 [facility] Comment on above: Performed By: #### L [id number] #### [facility] ([facility]) [address] [place] [address] Immature granulocytes/100 WBC (Bld) 0.1 % Normal 0.0-1.0 [facility] Comment on above: Performed By: #### L [id number] #### [facility] ([facility] [facility]) [address] [place] [address] Lymphocytes (Bld) [#/Vol] 2.22 10*3/uL Normal 1.20-4.00 [facility] Comment on above: Performed By: #### L [id number] #### [facility] ([facility]) [address] [place] [address] Lymphocytes/100 WBC (Bld) 27.2 % Normal 20.0-45.0 [facility] Comment on above: Performed By: #### L [id number] #### [facility] ([facility]) [address] [place] [address] MCH (RBC) [Entitic mass] 21.3 pg Low 27.0-33.0 [facility] Comment on above: Performed By: #### L [id number] #### [facility] ([facility]) [address] [place] [address] MCV (RBC) [Entitic vol] 71.6 fL Low 82.0-98.0 [facility] Comment on above: Performed By: #### L [id number] #### [facility] ([facility]) [address] [place] [address] Monocytes (Bld) [#/Vol] 0.86 10*3/uL Normal 0.10-1.00 [facility] Comment on above: Performed By: #### L [id number] #### [facility] ([facility]) [address] [place] [address] Monocytes/100 WBC (Bld) 10.5 % Normal 5.0-12.0 [facility] Comment on above: Performed By: #### L [id number] #### [facility] ([facility]) [address] [place] [address] Neutrophils (Bld) [#/Vol] 4.88 10*3/uL Normal 1.60-7.60 [facility] Comment on above: Performed By: #### L [id number] #### [facility] ([facility] [address] [place] [address] Neutrophils/100 WBC (Bld) 59.7 % Normal 40.0-72.0 [facility] Comment on above: Performed By: #### L [id number] #### [facility] ([facility]) [address] [place] [address] NRBC (PER 100 WBCS) BY AUTOMATED COUNT 0.0 % Normal 0 [facility] Comment on above: Performed By: #### L [id number] #### [facility] ([facility]) [address] [place] [address] PLATELETS (10*3/UL) IN BLOOD AUTOMATED COUNT 326 10*3/uL Normal 150-400 [facility] Comment on above: Performed By: #### L [id number] #### [facility] ([facility]) [address] [place] [address] RBC (Bld) [#/Vol] 5.45 10*6/uL Normal 4.20-5.70 [facility] Comment on above: Performed By: #### L [id number] #### [facility] ([facility]) [address] [place] [address] WBC (Bld) [#/Vol] 8.17 10*3/uL Normal 4.00-10.60 [facility] Comment on above: Performed By: #### L [id number] #### [facility] ([facility]) [address] [place] [address] COMPREHENSIVE METABOLIC PANE Daniel 11-03-2024 Albumin [Mass/Vol] 4.0 g/dL Normal 3.5-5.7 [facility] Comment on above: Performed By: #### L [id number] #### [facility] ([facility]) [address] [place] [address] ALP [Catalytic activity/Vol] 59 U/L Normal 34-104 [facility] Comment on above: Performed By: #### L [id number] #### [facility] ([facility]) [address] [place] [address] ALT [Catalytic activity/Vol] 14 U/L Normal 7-52 [facility] Comment on above: Performed By: #### L [id number] #### [facility] ([facility]) [address] [place] [address] Anion gap [Moles/Vol] 12 mmol/L Normal 7-20 [facility] Comment on above: Performed By: #### L [id number] #### [facility] ([facility]) [address] [place] [address] AST [Catalytic activity/Vol] 14 U/L Normal 13-39 [facility] Comment on above: Performed By: #### L [id number] #### [facility] ([facility]) [address] [place] [address] Bilirubin [Mass/Vol] 0.4 mg/dL Normal 0.3-1.0 [facility] Comment on above: Performed By: #### L [id number] #### [facility] ([facility]) [address] [place] [address] Calcium [Mass/Vol] 9.0 mg/dL Normal 8.6-10.3 [facility] Comment on above: Performed By: #### L [id number] #### [facility] ([facility]) [address] [place] [address] Chloride [Moles/Vol] 104 mmol/L Normal 98-107 [facility] Comment on above: Performed By: #### L [id number] #### [facility] ([facility]) [address] [place] [address] CO2 [Moles/Vol] 24 mmol/L Normal 21-31 [facility] Comment on above: Performed By: #### L [id number] #### [facility] ([facility]) [address] [place] [address] Creatinine [Mass/Vol] 1.11 mg/dL Normal 0.70-1.30 [facility] Comment on above: Performed By: #### L [id number] #### [facility] [address] [place] [address] GLOMERULAR FILTRATION RATE ML/MIN/1.73 SQ M.PREDICTED 75.5 mL/min/1.73m*2 Normal >60.0 [facility] Comment on above: Result Comment: The [facility]???s estimated glomerular filtration rate (eGFR) will no [...] of individuals. Performed By: #### L [id number] #### [facility] ([facility]) [address] [place] [address] Glucose [Mass/Vol] 101 mg/dL High 70-100 [facility] Comment on above: Performed By: #### L [id number] #### [facility] ([facility]) [address] [place] [address] Potassium [Moles/Vol] 3.8 mmol/L Normal 3.5-5.1 [facility] Comment on above: Performed By: #### L [id number] #### [facility] ([facility]) [address] [place] [address] Protein [Mass/Vol] 6.7 g/dL Normal 6.0-8.3 [facility] Comment on above: Performed By: #### L [id number] #### [facility] ([facility] [address] [place] [address] Sodium [Moles/Vol] 136 mmol/L Normal 136-145 [facility] Comment on above: Performed By: #### L [id number] #### [facility] ([facility] [address] [place] [address] Urea nitrogen [Mass/Vol] 21 mg/dL Normal 7-25 [facility] Comment on above: Performed By: #### L [id number] #### [facility] ([facility]) [address] [place] [address] UREA NITROGEN/CREATININE (MASS RATIO) IN SER/PLAS 18.9 Normal [facility] Comment on above: Performed By: #### L [id number] #### [facility] ([facility]) [address] [place] [address] LACTIC ACID, PLASMAon 2024 LACTATE (MMOL/L) IN SER/PLAS 0.9 mmol/L Normal 0.5-2.2 [facility] Comment on above: Performed By: #### L [id number] #### [facility] ([facility]) [address] [place] [address] MAGNESIUMon 11-03-2024 Magnesium [Mass/Vol] 1.8 mg/dL Low 1.9-2.7 [facility] Comment on above: Performed By: #### L [id number] ####[facility] ([facility])[address] [place] [address] Office Visiton 11-03-2024 Follow-up visit [id number] Doris Luis 1965 M Date Provider Department Center 11/03/2024 271-DAGOBERTO CORMIER [facility] Family History Problem Relation Age of Onset Coronary artery disease Mother Coronary artery disease Father Family Status - Relation Status Age at Mother Father Level of Service:80523 CO OFFICE/OUTPATIENT ESTABLISHED HIGH MDM 40 MIN Normal [facility] PHOSPHORUSon 11-03-2024 Magnesium [Mass/Vol] 3.2 mg/dL Normal 2.5-5.0 [facility] Comment on above: Performed By: #### L [id number] #### [facility] ([facility]) [address] [place] [address] PROTIME-INRon 11-03-2024 INR IN PPP BY COAGULATION ASSAY 2.45 High 0.90-1.10 [facility] Comment on above: Result Comment: ACCC P [...] CHEST 1995;108:231S-246S. Performed By: #### L [id number] #### [facility] ([facility]) [address] [place] [address] PROTHROMBIN TIME (PT) IN PPP BY COAGULATION ASSAY 26.0 Seconds High 12.3-14.8 [facility] Comment on above: Performed By: #### L [id number] #### [facility] ([facility]) [address] [place] [address] TROPONIN Ion 11-03-2024 Troponin I.cardiac [Mass/Vol] 0.03 ng/mL Normal 0.00-0.04 [facility] Comment on above: Performed By: #### L [id number] #### [facility] ([facility]) [address] [place] [address] Office Visiton 08-03-2024 Follow-up visit [id number] Doris Luis 1965 M Date Provider Department Center 08/03/2024 Polly-JASVIR CANTU Family History Problem Relation Age of Onset Coronary artery disease Mother Coronary artery disease Father Family Status - Relation Status Age at Mother Father Level of Service:20837 CO OFFICE/OUTPATIENT ESTABLISHED MOD MDM 30 MIN Reason for Visit and Comments: Coronary Artery Disease [187] Hypertension [364274] Hyperlipidemia [182] Normal [facility] Ambulatory Visit Summaryon 0 02-10-2024 Ambulatory Visit Summary DORIS LUIS :1965 Visit Date:02/10/2024 Ambulatory Visit Instructions Your Diagnosis Kidney stone Your Care Team Attending Physician - XIOMARA England APRN, Elsy Skaggs Primary Care Physician - Noe [...] Cardiac catheterization, Cataract extraction, Excision of lipoma, Newton filter, History of lumbar spine surgery, Meniscal [...] for choosing us for your care. Normal [facility] Formson 12-31-2023 Forms [id number]#1 .00TIFF Normal [facility] CHEMISTRYOrdered By: SYSTEM SYSTEM on 12-30-2023 Prostate [...] for this result was chemiluminescence using [employer] Access Hybritech PSA reagent. PSA Screen, Totalon 12-30-19 Prostate specific Ag [Mass/Vol] 1.7 ng/mL Normal 0.1-3.5 [facility] Comment on above: Result Comment: The concentration of PSA determined by different manufacturers can vary due to differences in assay methods and reagent specificity. Values obtained from different assay methods cannot be used interchangeably. The methodology used for this result was chemiluminescence using [employer] Access Hybritech PSA reagent. Performed By: #### 1 [id number] ####[facility] [address] [place] [address] Patient Educationon 12-30-19 Patient Education Nephrology Dietary [...] Spinach (cooked), rhubarb, beets, sweet potatoes, and [place] chard. ? Peanuts. ? Potato chips, persian fries, and baked potatoes with skin on. ? Nuts and nut products. ? Chocolate. ? If you regularly take a diuretic medicine, make sure to eat at least 1 or 2 servings of fruits or vegetables that are high in potassium each day. These include: ? Avocado. ? Banana. ? [place], prune, carrot, or tomato juice. ? Baked [...] fish oil, or vitamin B6. ? Take mcif-pzv-uhuxknk and prescription medicines only as told by your health care provider. These include supplements. What foods sh (more content not included)... Normal [facility] Urology Office/Clinic Noteon 12-30-2023 Urology Office/Clinic Note Chief Complaint 6 mo f/u w/ Renal US HPI Staff Former DLS pt 6m MAKENNA & PSA (pt RS'd) DX: Kidney Stone, BPH & Renal Cyst *No Urology Meds Last Tx'd for stones in 2021 Stone [place] 02/18/23 [place] [place] *Uric Acid KUB 03/12/23 Metabolic Work Up [...] resolved when stone passed. Stone Analysis 02/18/23 ([facility] [place] *Uric Acid MAKENNA 12/13/23 - 2 mm [...] Instructions: w/PSA ELIJAH ALLEN, EDGAR P[place], URL [address] [place] [address] Additional Instructions: Samanta GRIFFIN, XIOMARA, Elsy X, FAM, URL Additional Instructions: Patient Education Dietary [...] Excision of (more content not included)... Normal [facility] Comment on above: Result Comment: Elec tronically Signed By: XIOMARA England APRN, Elsy Skaggs\.br\Date and Time Signed: 12/30/23 12:27 EDT\.br\Electronically Co-Signed By: EDGAR NAVA PA-C RAD - Ultrasound Reporton RAD - Ultrasound Report [id number]#1 .00TIFF Normal [facility] Outside Colonoscopyon 2022 Outside Colonoscopy [id number]#1 .00TIFF [facility] Reminderson 09-18-2023 Reminders - From: Delilah Fink LPN To: GSN - Clinical; Sent: 09/18/2023 12:45:06 EST Show up: 08/18/2033 07:00:00 EST Subject: colonoscopy recall Due Date/Time: 09/17/2033 07:00:00 EST Reminder/Recall Patient due for screening colonoscopy 09/17/2033. Normal [facility] Reminderson 09-12-2023 Reminders - From: Aisha Zelaya To: BECKY - Shabnam Nava; Sent: 02/19/2023 15:30:57 EDT Show up: 07/13/2023 15:30:00 EDT Subject: Ambulatory Reminder Due Date/Time: 08/13/2023 15:30:00 EST Reminder/Recall Call and schedule patient for a MAKENNA prior to 08/26/23 follow up appointment. From: EDGAR NAVA PA-C (BECKY - Recalls Elijah) To: EU - Clinical; Sent: 09/10/2023 17:02:27 EST ! Show up: 09/10/2023 17:02:00 EST Due Date/Time: 09/11/2023 17:02:00 EST Appt 09/30/23 states pt is scheduled 09/19/23 @ 0900. [facility] Physician Referralon 023 Physician Referral [id number]#1 .00TIFF [facility] Consent for Procedure/Surger yon 09-01-2023 Consent for Procedure/Surgery [id number]# 1.00TIFF [facility] Ambulatory Visit Summaryon 1 10-30-2022 Ambulatory Visit Summary DORIS LUIS :1965 Visit Date:08/29/2023 Ambulatory Visit Instructions Your Care Team Attending Physician - ANNAMARIE ISRAEL, Jamil Braun Primary Care Physician - Iris ISRAEL, Noe Referring Physician - Noe Caballero [...] EDGAR NAVA PA-C Where: [facility] Physician Referralon 023 Physician Referral [id number]#1 .00TIFF [facility] Physician Referralon 023 Physician Referral [id number]#1. 00TIFF [facility] Physician Referralon 023 Physician Referral [id number]#1 .00TIFF [facility] Lab Reportson 03-21-2023 Lab Reports [id number]#1 .00CD:127 [facility] Lab Reports [id number]#1. 00CD:127 [facility] RAD - MISCon 03-21-2023 RAD - MISC [id number]#1 .00CD:127 [facility] Lab Reportson 03-18-2023 Lab Reports [id number]#1 .00CD:127 Normal [facility] Lab Reports [id number]#1 .00CD:127 Normal [facility] Ambulatory Visit Summaryon 0 03-12-2023 Ambulatory Visit [...] pyelography (07/06/2014), Hemorrhoidectomy (2009), Excision of lipoma, Newton filter, History of lumbar spine surgery, Meniscal repair, Tonsillectomy. Discharge Vitals Heart Rate (Peripheral) 72 Respiratory Rate 16 Blood Pressure 126/78 Height 177.8 cm Height 70 in Weight 105 kg Weight 231 lb BMI 33.21 What to do next Scheduled Follow-Up Appointments Friday 10:00 AM EST With: ELIJAH ALLEN, EDGAR Paniagua Where: [facility] Historical Records Officeon 03-10-2023 Historical Records Office [id number]#1 .00CD:127 [facility] Coding Summaryon 02-28-2023 Coding Summary HTMLBase 64 ZibrimuxSIl8vCm+PGhlY WQ+ET4SVXIkZ05grKTycA 0uB0FBAWsLTvepAQRSFUo IQsMsjjLtLC9orWQrFHGj IC8+WA7xTKHbSanbwNXpn 9P4aVE7M80mzh9yILpkiL P9DFYaAaImadnfg4ymwEr 6IDcuNmluOyBt GIXhvR07CDH9uT98Vp66u PJxmRBaf2swxLo2TuNcKK WzOKS7aBrmMZzij2RwHKO uW60onMTxx8N6 PMUgtZutvOLyBxRnvLF3e U9jPNmyondqe8gfbeseXj o7ln61nFCdk1Z4aXU1C8N elfG0OODsiCPx MxbyxKYMnX3avewzs2nzq gatJoDuXAJsXYt8KJh8ER QpuKykQlRuLZ51IGU6RMJ rmiInG9YlTJNy pXoaZtM9t0E3Tv7RQ3EYB eyzB5HWAHMATXughIL+PC 44zy53N3TtOyqjOjr4IWI vYRO4qDZ7nR2o CLPcSUtcc3G5tNK2U4Avf lTlkr4lh3dgEGHrWLpoK9 3uvRZry6H3LJPdmYH7BRI ccZzzGdYshJ55 Oyc+UILscLmuc5NhEwplk 6lww1djvXg0OqduBYFmfr CzpWmaJCT8k5WgHh0aAJK mkNE7rID8uG2z CaWxLkM9PXlaC297HcSve MTdMfgnU17aY7PpuPX+PH QfRgx8LYRmbXhhLW4qI2X hZGRpbmctbGVm wBomCD9uPAEyhloqQPJrl M0wKOAtS7b4FcSoReS9PS fvW1RfOZIkwfphHs88dA7 vFqBrJyF6UJwa H5BsvcF0DTEgyYHfAVdhW ZL5K15so7T5IYZnALOvHM P0bNG1iL7dtDxdgjkryWE mdDsgdmVydGlj KTulSWduS885EKGzeOurV kNvZGluZyBEYXRlOiAgMD YvMDIvMjAyMzwvdGQ+PHR nBCT2jZebLFQo gOUiJAhzGg4etKcduTdoL P8zDTRbexqmKAOscX3tGW OurHGwdSmlJC8kDYUcilg jz839WaZnFLC7 QLMyxLXjV1CcyZ0sGsNuM RRlZGEqQ5KyeLSmCHygK9 57YMioOsS6LXAfodKpO6F sLWFsaWduOiB0 d8K6Bx5Du4OwccouC0Qlj PYhZoMdCtutUEd7M7ItOe wvdHI+OC72CTYpRI65EJf 3AMS6oDnlKZlv OWDvB3JajS0hFpBsUIHxO GRkOyc+PHRhYmxlIHdpZH RoPScxMDAlJyBzdHlsZT0 vNz9kJXGeEMXk bRqsxXIuMkUsp6raHIWqV FamUI2qeVamW7DqsVZ1IK Xge2r6Vn67T75vF4VikXF +RPVvyBJ1sKZ0 mX8yZbTeChC1SAxdR115F eZnoVJcKvihy0heq7tzwX d6EhZ2ETMbamFjlTxtCWH 4e1JcLi05S27c IHdpZHRoPSIxNSUiIHZhb Wueck2wpB9wPp5+PGNvbC I4mQJ1oI9fIeDpVvV7QTp yL990OcWpzGSc Zrttc5xwj6jsyCe2GnWsG CDdodHiiSxpNDO1d9ZoQp 78R6UgiEkqt4QdBua3au1 8yNIag3D6eNO9 L9TdYRLfdxldnIWdkMjiQ O2pZNAthnzmKOGcoH0bMV EcL2l6SuJmRbY3OAuxI2R pwkT8RDVisZNj ZKRooSALnD7pbsglx3mrr quiCpQtDWAcJNa8KWn8LI DdvOpxXvHaNPZ2ThR2CJW 8kKXttB9krZcf ovqodC5xAbb+FPR0bETql BNOWT3mJsdzdXK+PHRkIH X2tSydJIhbHCGpyI6zKMW nS3a9SrPkSmV7 UUtlN4WppmD6QVMmcIWpZ ODyaBZNhP2xvseck7hctf aqNsXxZIVbYAd6DWs3IGL saWduOiBsZWZ0 AaM7LIM3qBUstZ5hgZjwy muxhR6pShz+QmlydGggRG C3AKm9Q8EhTsw9EWQngYl kTE0aeCYuAHrd Ll1dmSefoDjqYV1zDFRif napt743EsBru9jqWRFozD NyIYfvGWO5U46wo5A5CMX qAWYkIGZ0qWW4 tA8buXloasotdIEbpUayw bUjnEqjNAabGZcvW228SB IirJnzKbDtAZm5E4CgAjo 0KXUwcCdiVC1k mVZkAOmeJe8urSjxrLldX T1sJARefsein662QqMqn1 uiIJXupFRiQXzuPOP9I83 vy0N5ZGYoSJSg HLY6bMO4jT1jqYbbpbhlj GVmdDsgdmVydGljYWwtYW kqS382ONZnpDdcVeCbfWc 8L1CvQup6GKHd bZecZR5qdAUfTUihEt5rb ZdvpGgfLN6aHELqmcmbg6 11GbKvu4jwZYHoxLZzBGn iVTN2Z22sq5I5 GQCsPYOvLVZ9tLU7gV4tw GlnbjogbGVmdDsgdmVydG jqWYvxYEcyL875UMGvuZv nPlBhdGllbnQg UBnkUTj1A0EsWmjizYO+P Y09KDTdQY01hHOlpEDiw9 hybOd0RuCgIUBlPEB9bTq uCVqbq1UoHQMm U87xgGLkg5E2YYLkaEktl GQhPfWgbHY0fW7zEHhsah vok3nkpzqrChssb0pnjm7 6iJ71P46vROsp ZHRoPSIzMCUiIHZhbGlnb m4hfU2zWy4+PYOswII2nS L4gW0dMNSwTvX8WHawV49 9InRvcCIvPjxj h6zll5hssLr9NlF0WNEwv jVcsSakDPF1t1CnGk12M2 9sIHdpZHRoPSIyMCUiIHZ hjNjmjw4ojB3s Ii8+UHIyuUQ3gER3nJ4mD hYmVfQ2RJmzQ844OtYwpK NzBkfxX99xK5SmsCY+PHR vImr0MMGwrObb PI0zkVIcYOftYb6uGHE1V vCuKpWdIGvnR2VzRUUnej zsqqymvOX7QJYiXVQvbC3 7Uk2svBwkRFYb bORYlZ5idynlk8atjepxO xBpNQUuMRx8XJw8RSSpdG pvHnAuMYF7ClF1XWL8yGS ixX9ekEfhaceh bL7wR4PyVEIhqpxlVw35x I9dZsJnRbN7ESdwIps+SE XMA0JHXXGPEQEGJKDZCYM HP6KYKMuhzRI+ DUAdZUZ0rGpdXVyeNWYfo B7uDQFoY9l2MwPgPoV4YZ ioD3AqHBTfwellCp20bI6 uZoGvKeR1HZoj K9FyjpK8FLUdeZDlRBzhD NS0A34iy2G0JLRvAAMsBW I1iUT0gO0vsLvnwwcbhTS mdDsgdmVydGlj TBydNRuyF401RDOdbDfnG mH5RiJ6LwN2AqH7Z4EgYq u9QOLaiVssDW2veGSvTQd tEg5lmDbggSsj UY5iNOHogspnPMMpcF5jT GJqdGOloFylYQ4gMMArtg zap795QcGpAIP9UYHbfKJ qZ2ZnnT3yQlCk VKMvGNYxO8HwnSGjDAtlP 848NSvwIxY6RLVkhnQcY3 FsPKWloMgfZyU4s7Z9Tl8 1OSBZZWFyczwv dGQ+ZHIoNPO2yYorABffA ZKyfP4rOABlH3n2SgQyLl W4EGayZ2JnTMDxkezsOy7 6nW7cZfMzVyT2 LBaaO4ClemJ9DCQzrMHhS VlwEWQ9U98uh7B3NMIhNZ FfOHV2kDZ4cT9owAycxjw gbGVmdDsgdmVy rZmrAXgsGOvaP671TJDur EiuWd2PEJI8R6RcLkz5FM FpvPxzUQ9qqEMpHVxjQm7 liHpzbZhtZK8u HMTmnkalWWUbdW0xTAGpj JPafRvlOL0hIFPqsfbqi7 41TqUkULM2ACSqrXMoH2X uvE2tXpBhJPWh UAWrE6NaaYFvAJsqR793C TnkMiT3CANwspVkN8DmQA YubSaaXsL8b6G1Kv4LLWu vdGQ+DQ47ya94 O3PsZqdhFnj0XONgOJW1s MQ2iQ7yVGGaJHwwl1A4uC S4F8IofaOuzl3sr2bsZKL wMGdtW58xzLSk m5U0PACetPE5LWRzfWuvE lLaoR53Zgz+PGNvbGdyb3 BrEquso1erc2wbzXv5YmD wJSIgdmFsaWdu OQI3g8KfHb72G28sDTmuA HRoPSIzMCUiIHZhbGlnbj 5kvA6lPe9+ZRMnrSM4kCR 6gL5cVrXsXgL8 XAdzF037KbOldNYyYglry 4syt5ndqPz3NzOqWWBnik GdrBrtQAD3t5IiYs60A9W zvUmku1ByFdk2 vv59qZEmy0C5kLN3F5DhN QYrfziduLGucAloAN9pBK NtebkxTJCriR6oHVMzJ7b 1YqPvEjR1GJyo B5OkscH6KSSyyWCyIMVha JXHjL6pqvwmr4royqunYe EoBOWzNJx4SGk8ROOhgOv iExDiZOM4DzQ5 BHT2gYQfdG1smQiujhsep G9wOyc+PFu1t8uuzNOwFU 5zzPP0VB72UI10rICgi7Z 3kYW9A6RyVNPg jzjtcieqsOA5SYWeOPZyg T91Ks6vaStgHu4yZMBsIJ B7AZNcmKFqU7DygN4oGgW wTRDiQNKxM5On nIGmZWhxA695KQduRcH5M YLikmGdB4XnOSGaxZkjHa H2t7X3Nr1RVQ06AH45ZF8 9sYUrh1B5eRZ9 L1FtCKIbxuhnipigpPY7K JRbMSYtcW79Ue7plPivRj 5xTGKfOPT5RFRnrDXcM9C vvM2iPfJjLSEi DSGuL2NhbWJbFGzfY257Y BgzSoH5WAUihzCoF7HlGQ VtrDxtXwA2x3Z3Ri9OMc8 8PB48XW78fVKs i0V5cCZ6A3UxAJZovqgbr ryoeGB8GQFnZDRajG00Zq 0noIcbLt7aWVMvCON8AUP obPXxZ2CvnO8q QrXpJUYxBEXzP3XoyQOlB ObsI067IWgbUrA0BOCjqs ExV7UyIKHjhQazNmN1s5Z 6Gy6GXZdrlxi4 A8EqAgfdiEW+FC15WLJzA B43oNYhwRBzs4ligHu8Bb GgYVMiOTM1mHisPDvcb7F jVVYsL83npQTw c2U (more content not included)... Normal [facility] Calculus Analysison 02-27-20 23 Color (Stone) [place] Invalid Interpretation Code [facility] Comment on above: Performed By: #### 1 [id number] ####[facility] [address] [place] [address] Composition Comment Invalid Interpretation Code [facility] Comment on above: Result Comment: Perc entage (Represents the % composition) Performed By: #### 1 [id number] ####[facility] [address] [place] [address] Disclaimer: Comment Invalid Interpretation Code [facility] Comment on above: Result Comment: This test was developed and its performance characteristics determined by [facility]. It has not been cleared or approved by the Food and Drug Administration. Performed at: [facility] Stone Analysis [address] [place] [address] [address] [place], [place] [id number] PhD Sahra Helton Performed By: #### 1 [id number] ####[facility] [address] [place] [address] Laboratory comment Lazaro (Report) Comment Invalid Interpretation Code [facility] Comment on above: Result Comment: Trav nguyen questions regarding Calculi Analysis contact [facility] at: [phone]. Performed By: #### 1 [id number] ####[facility] [address] [place] [address] Please Note: Comment Invalid Interpretation Code [facility] Comment on above: Result Comment: Calc cheikh report will follow via computer, mail or black oxide coating equipment tender delivery. Performed By: #### 1 [id number] ####[facility] [address] [place] [address] Size (Stone) [Entitic vol] 3x5 Invalid Interpretation Code [facility] Comment on above: Result Comment: Brian le piece received. Performed By: #### 1 [id number] ####[facility] [address] [place] [address] Specimen source subject Nom Comment Invalid Interpretation Code [facility] Comment on above: Result Comment: Not provided Performed By: #### 1 [id number] ####[facility] [address] [place] [address] Stone Photo Comment Invalid Interpretation Code [facility] Comment on above: Result Comment: Phot ograph will follow under a separate cover Performed By: #### 1 [id number] ####[facility] [address] [place] [address] Urate (Stone) [Mass fraction] 100 % Invalid Interpretation Code [facility] Comment on above: Performed By: #### 1 [id number] ####[facility] [address] [place] [address] Weight (Stone) 35 mg Invalid Interpretation Code [facility] Comment on above: Performed By: #### 1 [id number] ####[facility] [address] [place] [address] ED Clinical Summaryon 2022 ED Clinical Summary [facility] [address] [place] [id number] Clinical Summary PERSON INFORMATION Name: DORIS LUIS Age: 57 Years Sex: MALE : 1965 MRN: Acct#: Visit Reason: Skin problem; FISH HOOK LT THIGH Arrival: 02/26/2023 14:18:24 Discharge: 02/26/2023 15:11:00 LOS: 000 00:53 Check In: 02/26/2023 14:18:24 Checkout: 02/26/2023 15:11:00 Address: [facility] [address] PCP: NOE CABALLERO PROVIDER INFORMATION Provider Role Assigned Unassigned ALFIE SLAUGHTER ED PA 02/26/2023 14:20:09 Ivan Pringle MILLING MACHINE TENDER Nurse 02/26/2023 14:20:24 Asya Luther MILLING MACHINE TENDER Nurse 02/26/2023 14:30:49 VITALS INFORMATION Vital Sign [...] distress: No -Vitals: reviewed. SKIN: -Gross abnormalities: Odon appreciated in the left medial lower thigh just above the knee NECK: -Supple (esbf-ei-eopwq): non-tender. CARD: -Rate and rhythm: Regular RESP: [...] Fish hook injury of left lower leg ([id number] S89.92XA). Orders Orders Patient Care: Wound Care [...] Adult Follow-Up: With: Address: When: NOE CABALLERO [address] [place] [address] [place] [id number] Business (1) Within 3 to 5 days DIAGNOSIS: Fish hook injury of left lower leg Patient Understands: Yes - Patient/family/caregi josee verbalizes understanding of instructions given Comment: [facility] ED Note - Physicianon 2022 ED [...] distress: No -Vitals: reviewed. SKIN: -Gross abnormalities: Odon appreciated in the left medial lower thigh just above the knee NECK: -Supple (yxmf-gw-swzwr): non-tender. CARD: -Rate and rhythm: Regular RESP: [...] Fish hook injury of left lower leg (OOI87-TE S89.92XA). Orders Orders Patient Care: Wound Care [...] [Verified on: 02/26/2023 14:57 EDT] ALFIE SLAUGHTER [facility] ED Patient Summaryon 023 ED Patient Summary [facility] ? Urgent Care [address] [place] [address] PATIENT DISCHARGE INSTRUCTIONS Patient Information Name: DORIS LUIS Age: 57 Years Date of : 1965 Reason For Visit: Skin problem; FISH HOOK LT THIGH Arrival Time: 02/26/2023 14:18:24 Primary Care Physician: NOE CABALLERO Attending Physician: ALFIE SLAUGHTER Comment: Patient Education With: Address: When: NOE CABALLERO [facility] [facility] [place] [address] Business (1) Within 3 to [...] at home: Medicines ? Take or apply nprh-lmw-lsfvxhb and prescription medicines only as told by [...] and water are not available, use hand dog license officer supervisor. ? Change your dressing as told by [...] washing o (more content not included)... Normal [facility] [place] 023 Urgent Care Record [facility] ? Urgent Care [address] [place] [address] PATIENT DISCHARGE INSTRUCTIONS Patient Information Name: DORIS LUIS Age: 57 Years Date of : 1965 Reason For Visit: Skin problem; FISH HOOK LT THIGH Arrival Time: 02/26/2023 14:18:24 Primary Care Physician: NOE CABALLERO Attending Physician: ALFIE SLAUGHTER Comment: Visit Diagnosis: Diagnoses This Visit Fish hook injury of left lower leg (S89.92XA) Skin problem ([id number]) If you received any narcotics, sedation, or [...] legal documents With: Address: When: NOE CABALLERO [address] [place] [address], [place] [address] Business (1) Within 3 to 5 days Medication Information: The exam and treatment you received today in the [facility] were for an urgent problem and are not intended as complete care. It is important for you to follow up with a doctor, nurse practitioner, or physician?s psychology assistant for ongoing care. If your symptoms [...] reach you if necessary. [facility] has provided you with a complete list of medications post discharge. Please inform your burr filer/provider of your visit and for further instruction [...] washing out the (more content not included)... [facility] Historical Records Officeon 02-20-2023 Historical Records Office [id number] .[id number]:127 [facility] Physician Referralon 023 Physician Referral [id number] .00CD:127 [facility] Ambulatory Visit Summaryon 0 02-18-2023 Ambulatory Visit Summary DORIS LUIS :1965 Visit Date:02/18/2023 Ambulatory Visit Instructions Your Diagnosis Kidney stone Prostate cancer screening BPH without obstruction/lower urinary tract symptoms Renal cyst Tests Performed Urnls Dip Stick Auto w/o Microscopy POC 05639 US Renal -- Results Pending -- Please [...] Cystoscopy and retrograde pyelography (07/06/2014), Back care, Newton filter, Hemorrhoidectomy, History of knee surgery, Tonsillectomy. Discharge Vitals Heart Rate (Peripheral) 68 Respiratory Rate 16 Blood Pressure 130/72 Height 178 cm Height 70 in Weight 106 kg Weight 233.2 lb BMI 33.46 What to do next Scheduled Follow-Up Appointments Friday 10:00 AM EST With: EDGAR NAVA PA-C Where: [facility] Patient Educationon 02-19-20 Patient Education [...] these instructions at home: Medicines ? Take swuw-xnv-xpsojrz and prescription medicines only as told by [...] provider. Document Revised: 05/20/2022 Document Reviewed: 05/20/2022 [employer] Patient Education ? 2022 Memolane. Martha Rogers [facility] Urology Office/Clinic Noteon 02-18-2023 Urology Office/Clinic [...] E&M of Est. Patient Moderate 30-39 Min 69097 PSA Total Urnls Dip Stick Auto w/o Microscopy POC 83045 US Renal 2. Prostate cancer screening (Z12.5: Encounter for screening for malignant neoplasm of prostate) PSA 07/03/22 - 1.36 will need repeat this fall. order placed. No additional PSA in [facility] system (gets labs annually for PCP but doesn't look like this was included). Ordered: E&M of Est. Patient Moderate 30-39 Min 31980 PSA Total 3. BPH without obstruction/lower urinary tract symptoms (N40.0: Benign prostatic hyperplasia without lower urinary tract symptoms) Pt is currently taking no bladder/prostate medication and is highly satisfied with overall symptom control. No indication for treatment at this time. Continue to monitor. Ordered: E&M of Est. Patient Moderate 30-39 Min 56436 PSA Total 4. Renal cyst (N28.1: Cyst of kidney, acquired) Pt's Renal US shows bilat simple cysts, largest 6cm on right. Ordered: E&M of Est. Patient Moderate 30-39 Min 55585 PSA Total f/u 6 mos w MAKENNA and PSA prior Follow-up With When Contact Information ELIJAH ALLEN, EDGAR [place], URL Within 6 months [address] [place] [address] [facility] (1) Additional Instructions: Patient Education Kidney Stones, Mjmg-nt-Qeof Problem List/Past Medical History Ongoing Anticoagulated Anxiety [...] Cystoscopy and retrograde pyelography (07/06/2014), Back care, Newton filter, Hemorrhoidectomy, History of knee surgery, Tonsillectomy. [...] 1 cap(s), (more content not included)... Normal [facility] Comment on above: Result Comment: Elec tronically Signed By: ELIJAH ALLEN, EDGAR Paniagua\.br\Date and Time Signed: 02/18/23 15:31 EDT CBC AUTO DIFFon 01-31-2023 BASO # 0.1 103/ul Normal 0.0-0.1 [facility] Comment on above: Performed By: #### P T #### [facility] [address] [place] [address] [address] Curly Connell Basophils/100 WBC (Bld) 0.9 % Normal 0.2-2.0 [facility] Comment on above: Performed By: #### P T #### [facility] [address] [place] [address] [address] Curly Connell EO # 0.1 103/ul Normal 0.0-0.7 [facility] Comment on above: Performed By: #### P T #### [facility] [address] [address] [address] Curly Connell Eosinophils/100 WBC (Bld) 1.2 % Normal 0.9-7.0 [facility] Comment on above: Performed By: #### P T #### [facility] [address] [place] [address] Dr. Curly Connell Erythrocyte distribution width (RBC) [Ratio] 19.1 % Critically high 11.0-15.0 [facility] Comment on above: Performed By: #### P T #### [facility] [address] [place] [address] Dr. Curly Connell Hematocrit (Bld) [Volume fraction] 42.3 % Normal 42.0-54.0 [facility] Comment on above: Performed By: #### P T #### [facility] [address] [place] [address] Dr. Curly Connell Hemoglobin (Bld) [Mass/Vol] 12.1 g/dL Critically low 14.0-18.0 [facility] Comment on above: Performed By: #### P T #### [facility] [address] [place] [address] Dr. Curly Connell IG # 0.02 10e3/ul Normal 0.00-0.03 [facility] Comment on above: Performed By: #### P T #### [facility] [address] [place] [address] Dr. Curly Connell IG % 0.2 % Normal 0.0-0.5 [facility] Comment on above: Performed By: #### P T #### [facility] [address] [place] [address] Dr. Curly Connell LYMPH # 2.2 103/ul Normal 1.2-3.8 [facility] Comment on above: Performed By: #### P T #### [facility] [address] [place] [address] Dr. Curly Connell Lymphocytes/100 WBC (Bld) 24.3 % Normal 20.5-60.0 [facility] Comment on above: Performed By: #### P T #### [facility] [address] [place] [address] Dr. Curly Connell MANUAL DIFF REQ NO Normal [facility] Comment on above: Performed By: #### P T #### [facility] [address] [address] [address] Curly Connell MCH (RBC) [Entitic mass] 21.1 pg Critically low 25.9-34.0 [facility] Comment on above: Performed By: #### P T #### [facility] [address] [place] [address] Dr. Curly Connell MCHC (RBC) [Mass/Vol] 28.6 g/dL Critically low 29.9-35.2 [facility] Comment on above: Performed By: #### P T #### [facility] [address] [place] [address] Dr. Curly Connell MCV (RBC) [Entitic vol] 73.8 fL Critically low 80.0-94.0 [facility] Comment on above: Performed By: #### P T #### [facility] [address] [place] [address] Dr. Curly Connell MONO # 0.8 103/ul Normal 0.3-0.8 [facility] Comment on above: Performed By: #### P T #### [facility] [address] [place] [address] Dr. Curly Connell Monocytes/100 WBC (Bld) 9.2 % Normal 1.7-12.0 [facility] Comment on above: Performed By: #### P T #### [facility] [address] [place] [address] Dr. Curly Connell NEUT # 5.9 103/ul Normal 1.4-6.5 [facility] Comment on above: Performed By: #### P T #### [facility] [address] [place] [address] Dr. Curly Connell Neutrophils/100 WBC (Bld) 64.2 % Normal 43.0-75.0 [facility] Comment on above: Performed By: #### P T #### [facility] [address] [place] [address] Dr. Curly Connell Platelet mean volume (Bld) [Entitic vol] 10.0 fL Normal 9.5-13.5 [facility] Comment on above: Performed By: #### P T #### [facility] [address] [place] [address] Dr. Curly Connell PLT 340 103/ul Normal 150-450 [facility] Comment on above: Performed By: #### P T #### [facility] [address] [address] [address] Curly Connell RBC 5.73 106/ul Normal 4.70-6.10 [facility] Comment on above: Performed By: #### P T #### [facility] [address] [address] [address] Curly Connell WBC 9.1 103/ul Normal 4.0-11.0 [facility] Comment on above: Performed By: #### P T #### [facility] [address] [place] [address] Dr. Curly Connell GLYCOHEMOGLOBIN A1Con 2022 ADA RECOMMENDATION SEE BELOW Normal [facility] Comment on above: Result Comment: ADA RECOMMENDED LIMIT 4.0 - 6.0 ADA THERAPEUTIC TARGET < 7.0 ACTION SUGGESTED > 7.0 Performed By: #### P T #### [facility] [address] [place] [address] Dr. Curly Connell Glucose [Mass/Vol] 151 mg/dL Normal [facility] Comment on above: Performed By: #### P T #### [facility] [address] [place] [address] Dr. Curly Connell HbA1c (Bld) [Mass fraction] 6.9 % Critically high 4.5-6.2 [facility] Comment on above: Performed By: #### P T #### [facility] [address] [place] [address] Dr. Curly Connell LIPID PROFILEon 01-31-2023 CHOL-HDL RATIO NORM SEE BELOW Normal [facility] Comment on above: Result Comment: 3.3 - 4.4 LOW RISK 4.4 - 7.1 AVERAGE RISK 7.1 - 11.0 MODERATE RISK >11.0 HIGH RISK Performed By: #### P T #### [facility] [address] [address] [address] Curly Connell Cholesterol [Mass/Vol] 149 mg/dL Normal <=200 Th [facility] Comment on above: Performed By: #### P T #### [facility] [address] [address] [address] Curly Connell Cholesterol in HDL [Mass/Vol] 41 mg/dL Normal 40-60 [facility] Comment on above: Performed By: #### P T #### [facility] [address] [address] [address] Curly Connell Cholesterol in LDL [Mass/Vol] 77.8 mg/dL Normal [facility] Comment on above: Performed By: #### P T #### [facility] [address] [address] [address] Curly Connell Cholesterol.total/Chol esterol in HDL [Mass ratio] 3.6 {ratio} Normal [facility] Comment on above: Performed By: #### P T #### [facility] [address] [address] [address] Curly Connell HDL NORMAL > or = 60 mg/dl - LO W CARDIOVASCULAR RISK <40 mg/dl - HIGH CARDIOVASCULAR RISK Normal [facility] Comment on above: Performed By: #### P T #### [facility] [address] [address] [address] Curly Connell LDL CALC NORMAL SEE BELOW Normal [facility] Comment on above: Result Comment: <100 mg/dl OPTIMAL 100 - 129 mg/dl NEAR OR ABOVE OPTIMAL 130 - 159 mg/dl BORDERLINE HIGH 160 - 189 mg/dl HIGH >190 mg/dl VERY HIGH Performed By: #### P T #### [facility] [address] [address] [address] Curly Connell Triglyceride [Mass/Vol] 151 mg/dL Critically high <=150 [facility] Comment on above: Performed By: #### P T #### [facility] [address] [address] [address] Curly Connell VLDL CALC 30.2 mg/dL Normal [facility] Comment on above: Performed By: #### P T #### [facility] [address] [place] [address] Dr. Curly Connell PROF 14(COMP METB)on 023 Albumin [Mass/Vol] 3.6 g/dL Normal 3.4-5.0 [facility] Comment on above: Performed By: #### P T #### [facility] [address] [place] [address] Dr. Curly Connell Albumin/Globulin [Mass ratio] 0.8 {ratio} Normal [facility] Comment on above: Performed By: #### P T #### [facility] [address] [place] [address] Dr. Curly Connell ALP [Catalytic activity/Vol] 66 U/L Normal 46-116 [facility] Comment on above: Performed By: #### P T #### [facility] [address] [place] [address] Dr. Curly Connell ALT [Catalytic activity/Vol] 21 U/L Normal 16-63 [facility] Comment on above: Performed By: #### P T #### [facility] [address] [place] [address] Dr. Curly Connell Anion gap [Moles/Vol] 9.6 mmol/L Normal [facility] Comment on above: Performed By: #### P T #### [facility] [address] [place] [address] Dr. Curly Connell AST [Catalytic activity/Vol] 15 U/L Normal 15-37 [facility] Comment on above: Performed By: #### P T #### [facility] [address] [place] [address] Dr. Curly Connell Bilirubin [Mass/Vol] 0.4 mg/dL Normal 0.2-1.0 [facility] Comment on above: Performed By: #### P T #### [facility] [address] [place] [address] Dr. Curly Connell Calcium [Mass/Vol] 9.2 mg/dL Normal 8.5-10.1 [facility] Comment on above: Performed By: #### P T #### [facility] [address] [address] [address] Curly Connell Chloride [Moles/Vol] 106 mmol/L Normal 98-107 [facility] Comment on above: Performed By: #### P T #### [facility] [address] [address] [address] Curly Connell CO2 [Moles/Vol] 28.2 mmol/L Normal 21.0-32.0 [facility] Comment on above: Performed By: #### P T #### [facility] [address] [address] [address] Curly Connell Creatinine [Mass/Vol] 1.23 mg/dL Normal 0.70-1.30 [facility] Comment on above: Performed By: #### P T #### [facility] [address] [place] [address] Dr. Curly Connell EGFR-AF CYMRAES >60 Normal >=60 [facility] Comment on above: Performed By: #### P T #### [facility] [address] [place] [address] Dr. Curly Connell EGFR-NON AF CYMRAES 60 mL/min/1.73m2 Normal >=60 [facility] Comment on above: Performed By: #### P T #### [facility] [address] [place] [address] Dr. Curly Connell Globulin (S) [Mass/Vol] 4.3 g/dL Normal [facility] Comment on above: Performed By: #### P T #### [facility] [address] [place] [address] Dr. Curly Connell Glucose [Mass/Vol] 123 mg/dL Critically high 74-106 [facility] Comment on above: Performed By: #### P T #### [facility] [address] [place] [address] Dr. Curly Connell Potassium [Moles/Vol] 4.8 mmol/L Normal 3.5-5.1 [facility] Comment on above: Performed By: #### P T #### [facility] [address] [place] [address] Dr. Curly Connell Protein [Mass/Vol] 7.9 g/dL Normal 6.4-8.2 [facility] Comment on above: Performed By: #### P T #### [facility] [address] [address] [address] Curly Connell Sodium [Moles/Vol] 139 mmol/L Normal 136-145 [facility] Comment on above: Performed By: #### P T #### [facility] [address] [address] [address] Curly Connell Urea nitrogen [Mass/Vol] 25.0 mg/dL Critically high 7.0-18.0 [facility] Comment on above: Performed By: #### P T #### [facility] [address] [address] [address] Curly Connell Urea nitrogen/Creatinine [Mass ratio] 20.3 mg/mg Normal [facility] Comment on above: Performed By: #### P T #### [facility] [address] [address] [address] Curly Connell PROTIMEon 01-31-2023 INR Coag (PPP) [Relative time] 2.17 {INR} Normal [facility] Comment on above: Performed By: #### P T #### [facility] [address] [place] [address] Dr. Curly Connell INR GUIDELINES SEE BELOW Normal [facility] Comment on above: Result Comment: DAFNE RED INR: 2.0 - 3.0 CONDITIONS NOT LISTED BELOW 2.5 - 3.5 FOR PROSTHETIC HEART VALVE REPLACEMENT 2.5 - 3.5 RECURRENT THROMBOSIS Performed By: #### P T #### [facility] [address] [address] [address] Curly Connell PT Coag (PPP) [Time] 22.0 s Critically high 9.0-11.6 [facility] Comment on above: Performed By: #### P T #### [facility] [address] [address] [address] Curly Connell US KIDNEYSon 01-21-2023 US [...] by: EFREM HUMPHREYS Date: 2023-01-21 10:07 Normal [facility] XR KUB 1 VIEWon 01-21-2023 XR KUB [...] EFREM HUMPHREYS Date: 2023-01-21 10:37 Normal [facility] PROTIMEon 12-30-2022 INR Coag (PPP) [Relative time] 2.16 {INR} Normal [facility] Comment on above: Performed By: #### P T #### [facility] [address] [place] [address] Dr. Curly Connell INR GUIDELINES SEE BELOW Normal [facility] Comment on above: Result Comment: DAFNE RED INR: 2.0 - 3.0 CONDITIONS NOT LISTED BELOW 2.5 - 3.5 FOR PROSTHETIC HEART VALVE REPLACEMENT 2.5 - 3.5 RECURRENT THROMBOSIS Performed By: #### P T #### [facility] [address] [address] [address] Curly Connell PT Coag (PPP) [Time] 21.9 s Critically high 9.0-11.6 [facility] Comment on above: Performed By: #### P T #### [facility] [address] [address] [address] Curly Connell PROTIMEon 10-14-2022 INR Coag (PPP) [Relative time] 2.36 {INR} Normal [facility] Comment on above: Performed By: #### P T #### [facility] [address] [place] [address] Dr. Curly Connell INR GUIDELINES SEE BELOW Normal [facility] Comment on above: Result Comment: DAFNE RED INR: 2.0 - 3.0 CONDITIONS NOT LISTED BELOW 2.5 - 3.5 FOR PROSTHETIC HEART VALVE REPLACEMENT 2.5 - 3.5 RECURRENT THROMBOSIS Performed By: #### P T #### [facility] [address] [place] [address] Dr. Curly Connell PT Coag (PPP) [Time] 23.8 s Critically high 9.0-11.6 [facility] Comment on above: Performed By: #### P T #### [facility] [address] [place] [address] Dr. Curly Connell PROTIMEon 09-16-2022 INR Coag (PPP) [Relative time] 1.93 {INR} Normal [facility] Comment on above: Performed By: #### P T #### [facility] [address] [place] [address] Dr. Curly Connell INR GUIDELINES SEE BELOW Normal [facility] Comment on above: Result Comment: DAFNE RED INR: 2.0 - 3.0 CONDITIONS NOT LISTED BELOW 2.5 - 3.5 FOR PROSTHETIC HEART VALVE REPLACEMENT 2.5 - 3.5 RECURRENT THROMBOSIS Performed By: #### P T #### [facility] [address] [place] [address] Dr. Curly Connell PT Coag (PPP) [Time] 20.0 s Critically high 9.0-11.6 [facility] Comment on above: Performed By: #### P T #### [facility] [address] [place] [address] Dr. Curly Connell PROTIMEon 08-07-2022 INR Coag (PPP) [Relative time] 2.68 {INR} Normal [facility] Comment on above: Performed By: #### P T #### [facility] [address] [place] [address] Dr. Curly Connell INR GUIDELINES SEE BELOW Normal [facility] Comment on above: Result Comment: DAFNE RED INR: 2.0 - 3.0 CONDITIONS NOT LISTED BELOW 2.5 - 3.5 FOR PROSTHETIC HEART VALVE REPLACEMENT 2.5 - 3.5 RECURRENT THROMBOSIS Performed By: #### P T #### [facility] [address] [place] [address] Dr. Curly Connell PT Coag (PPP) [Time] 27.1 s Critically high 9.0-11.6 [facility] - [place] Comment on above: Performed By: #### P T #### [facility] [address] [place] [address] ABD/PELVIS WO CONon [...] by: MASON NESBITT Date: 2022-07-17 19:16 Normal [facility] [place] US KIDNEYSon 07-01-2022 US KIDNEYS Ultrasound kidneys, [...] by: HILL IRVING Date: 2022-07-01 09:02 Normal [facility] [place] XR KUB 1 VIEWon 07-01-2022 XR KUB [...] EFREM HUMPHREYS Date: 2022-07-01 16:28 Normal [facility] PROTIMEon 06-25-2022 INR Coag (PPP) [Relative time] 2.60 {INR} Normal [facility] Comment on above: Performed By: #### P T #### [facility] [address] [place] [address] Dr. Curly Connell INR GUIDELINES SEE BELOW Normal [facility] Comment on above: Result Comment: DAFNE RED INR: 2.0 - 3.0 CONDITIONS NOT LISTED BELOW 2.5 - 3.5 FOR PROSTHETIC HEART VALVE REPLACEMENT 2.5 - 3.5 RECURRENT THROMBOSIS Performed By: #### P T #### [facility] [address] [place] [address] Dr. Curly Connell PT Coag (PPP) [Time] 26.4 s Critically high 9.0-11.6 [facility] [place] Comment on above: Performed By: #### P T #### [facility] [address] [place] [address] Dr. Curly Connell PROTIMEon 06-05-2022 INR Coag (PPP) [Relative time] 3.62 {INR} Normal [facility] [place] Comment on above: Performed By: #### P T #### [facility] [address] [place] [address] Dr. Curly Connell INR GUIDELINES SEE BELOW Normal [facility] Comment on above: Result Comment: DAFNE RED INR: 2.0 - 3.0 CONDITIONS NOT LISTED BELOW 2.5 - 3.5 FOR PROSTHETIC HEART VALVE REPLACEMENT 2.5 - 3.5 RECURRENT THROMBOSIS Performed By: #### P T #### [facility] [address] [place] [address] Dr. Curly Connell PT Coag (PPP) [Time] 35.9 s Critically high 9.0-11.6 [facility] Comment on above: Performed By: #### P T #### [facility] [address] [address] [address] Curly Connell PROTIMEon 05-24-2022 INR Coag (PPP) [Relative time] 2.56 {INR} Normal [facility] Comment on above: Performed By: #### P T #### [facility] [address] [place] [address] Dr. Curly Connell INR GUIDELINES SEE BELOW Normal [facility] Comment on above: Result Comment: DAFNE RED INR: 2.0 - 3.0 CONDITIONS NOT LISTED BELOW 2.5 - 3.5 FOR PROSTHETIC HEART VALVE REPLACEMENT 2.5 - 3.5 RECURRENT THROMBOSIS Performed By: #### P T #### [facility] [address] [place] [address] Dr. Curly Connell PT Coag (PPP) [Time] 26.0 s Critically high 9.0-11.6 [facility] [place] Comment on above: Performed By: #### P T #### [facility] [address] [place] [address] Dr. Curly Connell PROTIMEon 05-15-2022 INR Coag (PPP) [Relative time] 4.22 {INR} Critically high [facility] Comment on above: Performed By: #### P T #### [facility] [address] [place] [address] Dr. Curly Connell INR GUIDELINES SEE BELOW Normal [facility] Comment on above: Result Comment: DAFNE RED INR: 2.0 - 3.0 CONDITIONS NOT LISTED BELOW 2.5 - 3.5 FOR PROSTHETIC HEART VALVE REPLACEMENT 2.5 - 3.5 RECURRENT THROMBOSIS Performed By: #### P T #### [facility] [address] [place] [address] Dr. Curly Connell PT Coag (PPP) [Time] 41.5 s Critically high 9.0-11.6 [facility] Comment on above: Performed By: #### P T #### [facility] [address] [place] [address] Dr. Curly Connell PROTIMEon 05-01-2022 INR Coag (PPP) [Relative time] 3.81 {INR} Normal [facility] Comment on above: Performed By: #### P T #### [facility] [address] [address] [address] Curly Connell INR GUIDELINES SEE BELOW Normal [facility] Comment on above: Result Comment: DAFNE RED INR: 2.0 - 3.0 CONDITIONS NOT LISTED BELOW 2.5 - 3.5 FOR PROSTHETIC HEART VALVE REPLACEMENT 2.5 - 3.5 RECURRENT THROMBOSIS Performed By: #### P T #### [facility] [address] [address] [address] Curly Connell PT Coag (PPP) [Time] 37.7 s Critically high 9.0-11.6 [facility] [place] Comment on above: Performed By: #### P T #### [facility] [address] [place] [address] Dr. Curly Connell PROTIMEon 04-10-2022 INR Coag (PPP) [Relative time] 2.90 {INR} Normal [facility] [place] Comment on above: Performed By: #### P T #### [facility] [address] [place] [address] Dr. Curly Connell INR GUIDELINES SEE BELOW Normal [facility] Comment on above: Result Comment: DAFNE RED INR: 2.0 - 3.0 CONDITIONS NOT LISTED BELOW 2.5 - 3.5 FOR PROSTHETIC HEART VALVE REPLACEMENT 2.5 - 3.5 RECURRENT THROMBOSIS Performed By: #### P T #### [facility] [address] [place] [address] Dr. Curly Connell PT Coag (PPP) [Time] 29.2 s Critically high 9.0-11.6 [facility] [place] Comment on above: Performed By: #### P T #### [facility] [address] [address] [address] Curly Connell PROTIMEon 03-28-2022 INR Coag (PPP) [Relative time] 2.52 {INR} Normal [facility] [place] Comment on above: Performed By: #### P T #### [facility] [address] [place] [address] Dr. Curly oCnnell INR GUIDELINES SEE BELOW Normal [facility] Comment on above: Result Comment: DAFNE RED INR: 2.0 - 3.0 CONDITIONS NOT LISTED BELOW 2.5 - 3.5 FOR PROSTHETIC HEART VALVE REPLACEMENT 2.5 - 3.5 RECURRENT THROMBOSIS Performed By: #### P T #### [facility] [address] [address] [address] Curly Connell PT Coag (PPP) [Time] 25.6 s Critically high 9.0-11.6 [facility] [place] Comment on above: Performed By: #### P T #### [facility] [address] [address] [address] Curly Connell PROTIMEon 03-25-2022 INR Coag (PPP) [Relative time] 1.81 {INR} Normal [facility] [place] Comment on above: Performed By: #### P T #### [facility] [address] [address] [address] Curly Connell INR GUIDELINES SEE BELOW Normal [facility] Comment on above: Result Comment: DAFNE RED INR: 2.0 - 3.0 CONDITIONS NOT LISTED BELOW 2.5 - 3.5 FOR PROSTHETIC HEART VALVE REPLACEMENT 2.5 - 3.5 RECURRENT THROMBOSIS Performed By: #### P T #### [facility] [address] [address] [address] Curly Connell PT Coag (PPP) [Time] 18.8 s Critically high 9.0-11.6 [facility] [place] Comment on above: Performed By: #### P T #### [facility] [address] [address] [address] Curly Connell Cardiovascular Lab Reporton 03-21-2022 Cardiovascular Lab Report [facility] Patient Name: Doris Luis [facility] E MR #: [id number] Department of Physician: Brian Byrne M.D. Division of Service Date: 03/20/2022 Cardiology Birthdate: 1965 Adult Cardiovascular Room #: [place] [address] Cardiovascular Laboratory Report FINAL IMPRESSIONS: 1. Moderate [...] the right radial artery was obtained. A 6-Mosotho glide sheath was inserted without difficulty. Bilateral [...] Cormier M.D. Date Trans: 03/21/2022 12:17 A/bouchra [id number] cc: Shania Bhat, MSN, MACHINERY MOVER-C Department Of Surgery [place] [address] [facility] [address] Noe Caballero M.D. [address] [facility] [address] Normal [facility] CBC AUTO DIFFon 03-18-2022 BASO # 0.1 103/ul Normal 0.0-0.1 [facility] [place] Comment on above: Performed By: #### C BC #### [facility] [address] [address] [address] Curly Connell Basophils/100 WBC (Bld) 0.8 % Normal 0.2-2.0 [facility] Comment on above: Performed By: #### C BC #### [facility] [address] [address] [address] Curly Connell EO # 0.1 103/ul Normal 0.0-0.7 [facility] Comment on above: Performed By: #### C BC #### [facility] [address] [address] [address] Curly Connell Eosinophils/100 WBC (Bld) 1.1 % Normal 0.9-7.0 [facility] Comment on above: Performed By: #### C BC #### [facility] [address] [place] [address] Dr. Curly Connell Erythrocyte distribution width (RBC) [Ratio] 20.7 % Critically high 11.0-15.0 [facility] [place] Comment on above: Performed By: #### C BC #### [facility] [address] [place] [address] Dr. Curly Connell Hematocrit (Bld) [Volume fraction] 45.3 % Normal 42.0-54.0 [facility] [place] Comment on above: Performed By: #### C BC #### [facility] [address] [place] [address] Dr. Curly Connell Hemoglobin (Bld) [Mass/Vol] 13.5 g/dL Critically low 14.0-18.0 [facility] [place] Comment on above: Performed By: #### C BC #### [facility] [address] [place] [address] Dr. Curly Connell IG # 0.02 10e3/ul Normal 0.00-0.03 [facility] [place] Comment on above: Performed By: #### C BC #### [facility] [address] [place] [address] Dr. Curly Connell IG % 0.2 % Normal 0.0-0.5 [facility] [place] Comment on above: Performed By: #### C BC #### [facility] [address] [place] [address] Dr. Curly Connell LYMPH # 1.9 103/ul Normal 1.2-3.8 [facility] [place] Comment on above: Performed By: #### C BC #### [facility] [address] [place] [address] Dr. Curly Connell Lymphocytes/100 WBC (Bld) 23.4 % Normal 20.5-60.0 [facility] [place] Comment on above: Performed By: #### C BC #### [facility] [address] [place] [address] Dr. Curly Connell MANUAL DIFF REQ NO Normal [facility] Comment on above: Performed By: #### C BC #### [facility] [address] [place] [address] Dr. Curly Connell MCH (RBC) [Entitic mass] 23.0 pg Critically low 25.9-34.0 [facility] [place] Comment on above: Performed By: #### C BC #### [facility] [address] [place] [address] Dr. Curly Connell MCHC (RBC) [Mass/Vol] 29.8 g/dL Critically low 29.9-35.2 [facility] Comment on above: Performed By: #### C BC #### [facility] [address] [place] [address] Dr. Curly Connell MCV (RBC) [Entitic vol] 77.2 fL Critically low 80.0-94.0 [facility] [place] Comment on above: Performed By: #### C BC #### [facility] [address] [place] [address] Dr. Curly Connell MONO # 0.6 103/ul Normal 0.3-0.8 [facility] [place] Comment on above: Performed By: #### C BC #### [facility] [address] [place] [address] Dr. Curly Connell Monocytes/100 WBC (Bld) 7.7 % Normal 1.7-12.0 [facility] [place] Comment on above: Performed By: #### C BC #### [facility] [address] [place] [address] Dr. Curly Connell NEUT # 5.5 103/ul Normal 1.4-6.5 [facility] Comment on above: Performed By: #### C BC #### [facility] [address] [place] [address] Dr. Curly Connell Neutrophils/100 WBC (Bld) 66.8 % Normal 43.0-75.0 [facility] Comment on above: Performed By: #### C BC #### [facility] [address] [place] [address] Dr. Curly Connell Platelet mean volume (Bld) [Entitic vol] 9.8 fL Normal 9.5-13.5 [facility] Comment on above: Performed By: #### C BC #### [facility] [address] [place] [address] Dr. Curly Connell PLT 337 103/ul Normal 150-450 [facility] Comment on above: Performed By: #### C BC #### [facility] [address] [place] [address] Dr. Curly Connell RBC 5.87 106/ul Normal 4.70-6.10 [facility] Comment on above: Performed By: #### C BC #### [facility] [address] [place] [address] Dr. Curly Connell WBC 8.3 103/ul Normal 4.0-11.0 [facility] [place] Comment on above: Performed By: #### C BC #### [facility] [address] [place] [address] Dr. Curly Connell [facility] SARS-CoV-2 (COVID-19) RNA MARCELLO+probe Ql (Unsp spec) Not detected Normal NOT DETECTED [facility] Comment on above: Result Comment: This test is not yet approved or cleared by the [place] FDA. When there are no FDA-approved or cleared tests available, and other criteria are met, FDA can make tests available under an emergency access mechanism called an Emergency Use Authorization (EUA). The EUA for this test is supported by the [place] of Health and Human Service's (HHS's) declaration [...] SARS-CoV-2. Performed By: #### C VDTBH #### [facility] [address] [place] [address] Dr. Curly Connell PROF CHEM 8 (BAS METB)on Anion gap [Moles/Vol] 12.9 mmol/L Normal Th [facility] Comment on above: Performed By: #### P T #### [facility] [address] [place] [address] Dr. Curly Connell Calcium [Mass/Vol] 9.1 mg/dL Normal 8.5-10.1 [facility] Comment on above: Performed By: #### P T #### [facility] [address] [address] [address] Curly Connell Chloride [Moles/Vol] 105 mmol/L Normal 98-107 [facility] [place] Comment on above: Performed By: #### P T #### [facility] [address] [place] [address] Dr. Curly Connell CO2 [Moles/Vol] 26.0 mmol/L Normal 21.0-32.0 [facility] Comment on above: Performed By: #### P T #### [facility] [address] [place] [address] Dr. Curly Connell Creatinine [Mass/Vol] 1.34 mg/dL Critically high 0.70-1.30 [facility] [place] Comment on above: Performed By: #### P T #### [facility] [address] [place] [address] Dr. Curly Connell EGFR-AF CYMRAES >60 Normal >=60 [facility] Comment on above: Performed By: #### P T #### [facility] [address] [address] [address] Curly Connell EGFR-NON AF CYMRAES 55 mL/min/1.73m2 Critically low >=60 [facility] [place] Comment on above: Performed By: #### P T #### [facility] [address] [place] [address] Dr. Curly Connell Glucose [Mass/Vol] 122 mg/dL Critically high 74-106 [facility] Comment on above: Performed By: #### P T #### [facility] [address] [place] [address] Dr. Curly Connell Potassium [Moles/Vol] 4.9 mmol/L Normal 3.5-5.1 [facility] [place] Comment on above: Performed By: #### P T #### [facility] [address] [place] [address] Dr. Curly Connell Sodium [Moles/Vol] 139 mmol/L Normal 136-145 [facility] Comment on above: Performed By: #### P T #### [facility] [address] [address] [address] Curly Connell Urea nitrogen [Mass/Vol] 26.0 mg/dL Critically high 7.0-18.0 [facility] [place] Comment on above: Performed By: #### P T #### [facility] [address] [place] [address] Dr. Curly Connell Urea nitrogen/Creatinine [Mass ratio] 19.4 mg/mg Normal [facility] [place] Comment on above: Performed By: #### P T #### [facility] [address] [place] [address] Dr. Curly Connell PROTIMEon 03-12-2022 INR Coag (PPP) [Relative time] 2.73 {INR} Normal [facility] [place] Comment on above: Performed By: #### P T #### [facility] [address] [place] [address] Dr. Curly Connell INR GUIDELINES SEE BELOW Normal [facility] Comment on above: Result Comment: DAFNE RED INR: 2.0 - 3.0 CONDITIONS NOT LISTED BELOW 2.5 - 3.5 FOR PROSTHETIC HEART VALVE REPLACEMENT 2.5 - 3.5 RECURRENT THROMBOSIS Performed By: #### P T #### [facility] [address] [place] [address] Dr. Curly Connell PT Coag (PPP) [Time] 27.6 s Critically high 9.0-11.6 [facility] [place] Comment on above: Performed By: #### P T #### [facility] [address] [place] [address] Dr. Curly Connell NM STRESS/REST MULTIon 03-07 NM STRESS/REST MULTI Patient: DORIS LUIS Exam Date: 03/07/2022 : 1965 Gender:M Ordering : DR NOE CABALLERO . Admission #: [id number] Family : Order #: [id number] CLICK HERE TO VIEW EXAM RADIOLOGY REPORT [...] Humphreys MD on 03/08/2022 at 11:55 Normal [facility] [place] ECHOCARDIO M/2D COMPLETEon 0 02-20-2022 ECHOCARDIO M/2D COMPLETE Patient: DORIS LUIS Exam Date: 02/20/2022 : 1965 Gender:M Ordering : DR NOE CABALLERO . Admission #: [id number] Family : Order #: [id number] CLICK HERE TO VIEW EXAM ECHOCARDIOGRAM REPORT [...] Pepe M.D. on 02/21/2022 at 12:46 Normal [facility] PROTIMEon 02-13-2022 INR Coag (PPP) [Relative time] 2.92 {INR} Normal [facility] Comment on above: Performed By: #### P T #### [facility] [address] [place] [address] Dr. Curly Connell INR GUIDELINES SEE BELOW Normal [facility] Comment on above: Result Comment: DAFNE RED INR: 2.0 - 3.0 CONDITIONS NOT LISTED BELOW 2.5 - 3.5 FOR PROSTHETIC HEART VALVE REPLACEMENT 2.5 - 3.5 RECURRENT THROMBOSIS Performed By: #### P T #### [facility] [address] [place], [place] [address] Dr. Cruly Connell PT Coag (PPP) [Time] 29.4 s Critically high 9.0-11.6 [facility] Comment on above: Performed By: #### P T #### [facility] [address] [place], [place] [address] Dr. Curly Connell CHEMISTRYOrdered By: Tierra ROP User on 01-17-2022 Glucose [Mass/Vol] 121 mg/dL High 55 - 99 mg/dL [facility] P[facility] Subsection Comment on above: Result Comment: Asael thompson RN/ POC Device SN [id number] Invalid Interpretation Code [facility] POC Subsection POC User ID [id number] Invalid Interpretation Code [facility] POC Subsection POC Username SHANIKA ORTIZ Invalid Interpretation Code [facility] P[facility] Subsection COAGULATIONOrdered By: Efrem Moscoso on 01-17-2022 aPTT Coag (PPP) [Time] 36.2 s Normal 25.1 - 36.5 second(s) [facility] Coag INR Coag (PPP) [Relative time] 1.1 {INR} Invalid Interpretation Code [facility] Coag PT Coag (PPP) [Time] 13.4 s High 10.2 - 12.9 second(s) [facility] Auto Coag CHEMISTRYOrdered By: Efrem soria on 01-11-2022 Anion gap [Moles/Vol] 12 mmol/L Normal 6 - 16 mEq/L [facility] Remisol Calcium [Mass/Vol] 9.1 mg/dL Normal 8.9 - 11. 1 mg/dL [facility] Remisol Chloride [Moles/Vol] 105 mmol/L Normal 101 [...] rate/Area] mL/min/1.73 m2 Normal >=59mL/min/1 .73 m2 [facility] Chem S GFR/1.73 sq M.predicted among non-blacks MDRD (S/P/Bld) [Vol rate/Area] mL/min/1.73 m2 Normal >=59mL/min/1 .73 m2 [facility] Chem S COAGULATIONOrdered By: Jomar Cheema on [...] PM) Normal Negative [facility] UA Auto SS [place].plasma/[place] .RBC (Bld) [Mass ratio] 0-3 /HPF Normal [...] [facility] UA Auto SS Urobilinogen Qn (U) 0.8519784 {Rashida'U}/dL Normal 0.0 - 1.0 EU/dL [facility] UA Auto SS WBC Auto Ql (U) Negative (01/11/22 1:18 PM) Normal Negative [facility] UA Auto SS WBC LM.HPF (Urine sed) [#/Area] 0-5 /HPF Normal 0-5/HPF [facility] UA Auto SS OPERATIVE REPORTon 9 OPERATIVE REPORT [address] [id number] OPERATIVE REPORT PATIENT NAME: DORIS LUIS : 1965 MED REC NO: [id number] ROOM: [facility] ACCOUNT NO: [id number] ADMIT DATE: 01/18/2019 PROVIDER: Efrem Matson DATE [...] little over 2 months. 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 Care was taken to ensure that [...] small incision in the fascia, and the GeoVario tube dilator system was used to dilate [...] condition without evidence of complication. EFREM MATSON BROWN/[id number] Doc#: [id number] CC: Normal [facility] APTTon 01-18-2019 aPTT Coag time (Bld) 19.5 s Low 20.5-30.5 [facility] Comment on above: Result Comment: No c lot found in specimen, results questionable. TEST CONFIRMED Performed By: #### P T, PTT #### [facility] [employer] [address] [place] [id number] Decorating Consultant: Panchito Nguyen MD PTon 01-18-2019 INR Coag RelTime (PPP) 0.9 {INR} Normal [facility] Comment on above: Result Comment: Therapeutic Range: Moderate Anticoagulant Intensity: INR = 2.0-3.0 High Anticoagulant Intensity: INR = 2.5-3.5 No clot found in specimen, results questionable. Performed By: #### P T, PTT #### [address] [address] Decorating Consultant: Panchito Nguyen MD Prothrombin time (PT) Coag time (PPP) 9.5 s Normal 9.0-12.0 [facility] Comment on above: Result Comment: No c lot found in specimen, results questionable. Performed By: #### P T, PTT #### [address] [address] Decorating Consultant: Panchito Nguyen MD Type + Screenon 01-18-2019 Type + Screen Sample Expiration 01/21/2019 Arm Band Number [id number] ABO/Rh(D) A POSITIVE Antibody Screen NEGATIVE Normal [facility] Comment on above: Performed By: #### T YS #### [address] [address] Decorating Consultant: Panchito Nguyen MD XR LUMBAR SPINE (2-3 [...] Anup Guerrero MD 01/18/19 Final result Normal [facility] Vital Signs Date Time Vital Sign Value Performing Clinician Facility 12-30-2023 11:17-0400 Blood Pressure Location [facility] 12-30-2023 11:17-0400 Body temperature 98.42 [degF] [facility] 12-30-2023 11:17-0400 Diastolic blood pressure 88 mm[Hg] Elsy [facility] 12-30-2023 11:17-0400 Heart rate 83 /min Elsy Orzech [facility] 12-30-2023 11:17-0400 Respiratory rate 16 /min Elsy Orzech [facility] 12-30-2023 11:17-0400 Systolic blood pressure 122 mm[Hg] Elsy Orzech [facility] 08-29-2023 13:46-0500 Blood Pressure Location [facility] 08-29-2023 13:46-0500 Diastolic blood pressure 78 mm[Hg] [facility] 08-29-2023 13:46-0500 Heart rate 72 /min [facility] 08-29-2023 13:46-0500 Respiratory rate 16 /min [facility] 08-29-2023 13:46-0500 Systolic blood pressure 126 mm[Hg] [facility] 03-12-2023 14:22-0400 Blood Pressure Location [facility] 03-12-2023 14:22-0400 Diastolic blood pressure 78 mm[Hg] [facility] 03-12-2023 14:22-0400 Heart rate 72 /min Jamil NILL [facility] 03-12-2023 14:22-0400 Respiratory rate 16 /min Jamil NILL [facility] 03-12-2023 14:22-0400 Systolic blood pressure 126 mm[Hg] Jamil DE LUNA [facility] 07-03-2022 13:18-0400 Blood Pressure Location EDGAR NAVA [facility] 07-03-2022 13:18-0400 Diastolic blood pressure 76 mm[Hg] EDGAR NAVA [facility] 07-03-2022 13:18-0400 Heart rate 62 /min EDGAR CORADORY [facility] 07-03-2022 13:18-0400 Systolic blood pressure 128 mm[Hg] EDGAR CORADORY [facility] 01-17-2022 12:56-0400 Blood Pressure Location David Pacheco Jr[facility] 01-17-2022 12:56-0400 BP/Pulse Patient Position [facility] Jr[facility] 01-17-2022 12:56-0400 Diastolic blood pressure 79 mm[Hg] David [facility]co Jr[facility] 01-17-2022 12:56-0400 Heart rate 50 /min David [facility]co Jr[facility] 01-17-2022 12:56-0400 Mean blood pressure 94 mm[Hg] David [facility]co Jr[facility] 01-17-2022 12:56-0400 SaO2% (BldA) [Mass fraction] 96 % David [facility] Jr[facility] 01-17-2022 12:56-0400 Systolic blood pressure 125 mm[Hg] David [facility]co Jr[facility] 01-17-2022 12:56-0400 Body temperature 97.52 [degF] [facility] Jr[facility] 01-17-2022 12:01-0400 Blood Pressure Location David P[facility]co Jr[facility] 01-17-2022 12:01-0400 BP/Pulse Patient Position [facility] 01-17-2022 12:01-0400 Diastolic blood pressure 83 mm[Hg] David [facility] Jr[facility] 01-17-2022 12:01-0400 Heart rate 49 /min David [facility] Jr[facility] 01-17-2022 12:01-0400 Mean blood pressure 98 mm[Hg] [facility] Jr[facility] 01-17-2022 12:01-0400 Respiratory rate 16 /min [facility] Jr[facility] 01-17-2022 12:01-0400 SaO2% (BldA) [Mass fraction] 94 % David [facility] Jr[facility] 01-17-2022 12:01-0400 Systolic blood pressure 129 mm[Hg] [facility] 01-17-2022 12:01-0400 Body temperature 97.34 [degF] David [facility] Jr[facility] 01-17-2022 11:55-0400 Blood Pressure Location [facility] 01-17-2022 11:55-0400 Body temperature 97.34 [degF] [facility] 01-17-2022 11:55-0400 Diastolic blood pressure 81 mm[Hg] [facility] 01-17-2022 11:55-0400 Heart rate 50 /min David [facility]co Jr[facility] 01-17-2022 11:55-0400 Respiratory rate 12 /min David [facility] Jr[facility] 01-17-2022 11:55-0400 SaO2% (BldA) [Mass fraction] 97 % [facility] 01-17-2022 11:55-0400 Systolic blood pressure 126 mm[Hg] [facility] Jr[facility] 01-17-2022 11:40-0400 Respiratory rate 16 /min [facility] Jr[facility] 01-17-2022 11:25-0400 Respiratory rate 18 /min [facility] Jr[facility] 01-17-2022 11:00-0400 Respiratory rate 25 /min [facility] Jr[facility] 01-17-2022 10:55-0400 Respiratory rate 26 /min [facility] 01-17-2022 08:12-0400 gluc 121 mg/dL [facility] 01-17-2022 07:52-0400 Body temperature 97.7 [degF] [facility] 01-17-2022 07:52-0400 BP/Pulse Patient Position [facility] 01-17-2022 07:52-0400 Mean blood pressure 95 mm[Hg] [facility] 01-17-2022 07:52-0400 Heart rate 48 /min David [facility] Jr[facility] 01-11-2022 12:42-0400 Diastolic blood pressure 81 mm[Hg] [facility] 01-11-2022 12:42-0400 Heart rate 44 /min [facility] Jr[facility] 01-11-2022 12:42-0400 Mean blood pressure 97 mm[Hg] David [facility]co Jr[facility] 01-11-2022 12:42-0400 Respiratory rate 16 /min David [facility] Jr[facility] 01-11-2022 12:42-0400 SaO2% (BldA) [Mass fraction] 98 % [facility] 01-11-2022 12:42-0400 Systolic blood pressure 131 mm[Hg] David [facility] Jr[facility] 01-11-2022 12:42-0400 Blood Pressure Location [facility] Jr[facility] 01-11-2022 12:42-0400 Body temperature 97.7 [degF] [facility] 01-11-2022 12:40-0400 Blood Pressure Location [facility] Jr[facility] 01-11-2022 12:40-0400 Diastolic blood pressure 90 mm[Hg] [facility] 01-11-2022 12:40-0400 Heart rate 46 /min David [facility] Jr[facility] 01-11-2022 12:40-0400 Mean blood pressure 108 mm[Hg] [facility] 01-11-2022 12:40-0400 Respiratory rate 16 /min [facility] 01-11-2022 12:40-0400 SaO2% (BldA) [Mass fraction] 98 % [facility] 01-11-2022 12:40-0400 Systolic blood pressure 144 mm[Hg] [facility] Encounters Encounter Date Encounter Type Care Provider Facility Start: 04-05-[address] [facility] Start: 03-15-2025 End: 03-15-2025 Refill Stephania Nevarez [facility] Start: 03-08-2025 End: 03-08-2025 Bamboo flowsheet Neptali De Dios DO Work Phone: [facility] Start: 03-08-2025 End: 03-08-2025 Bamboo flowsheet Neptali De Dios DO Work Phone: [facility] Start: 03-08-2025 End: 03-08-2025 Office outpatient visit 25 minutes Neptali De Dios DO Work Phone: [facility] Comment on above: Age-related nuclear cataract of right eye (Primary Dx) Start: 03-08-2025 End: 03-08-2025 ambulatory NEPTALI DE DIOS Not Available Start: 03-03-2025 End: 03-03-[address] [facility] Start: 01-18-2025 End: 01-18-[address] [facility] Start: 12-16-2024 End: 12-16-2024 ambulatory EHAB [facility] Start: 11-05-2024 Evaluation and management of inpatient DIANDR[facility] Start: 11-05-2024 Evaluation and management of inpatient DIANDRA [facility] Start: 11-04-2024 Evaluation and management of inpatient LISS BALES [facility] Start: 11-03-2024 End: 11-05-2024 Evaluation and management of inpatient AZALEA GARZA [facility] Start: 11-03-2024 ambulatory AB [facility] Start: 08-03-2024 End: 08-03-2024 ambulatory JASVIR ALONDRA [facility] Start: 02-10-2024 End: 02-11-2024 ambulatory Elsy X Orzech Facility:[facility] Start: 02-10-2024 End: 02-10-2024 Patient encounter procedure Elsy X Orzech [facility] Start: 12-30-2023 End: 12-31-2023 ambulatory Elsy X Orzech Facility:[facility] Start: 12-30-2023 End: 12-31-2023 ambulatory Elsy X Orzech Facility:[facility] Start: 12-30-2023 End: 12-30-2023 Lab Drop off Elsy X Orzech [facility] Start: 12-30-2023 End: 12-30-2023 Patient encounter procedure Elsy X Orzech [facility] Start: 09-17-2023 End: 09-18-2023 ambulatory Jamil DE LUNA Facility:[id number] Start: 09-14-2023 Chart abstracting Generic Exte rnal Data Provider GENERIC EXTERNAL DATA DEPARTMENT Start: 08-29-2023 End: 08-30-2023 ambulatory Jamil R BOLAL Facility: [facility] Start: 08-29-2023 End: 08-29-2023 Patient encounter procedure Jamil R NILL [facility] Start: 03-12-2023 End: 03-13-2023 ambulatory Jamil R NILL Facility: [facility] Start: 03-12-2023 End: 03-12-2023 Patient encounter procedure Jamil R NILL [facility] Start: 02-26-2023 End: 02-26-2023 ambulatory ALFIE RAZA Facility:[facility] Start: 02-19-2023 ambulatory Noe Caballero Facility: [facility] Start: 02-18-2023 End: 02-19-2023 ambulatory PA-C EDGAR NAVA Facility:[facility] Start: 02-18-2023 End: 02-19-2023 ambulatory P[facility]ichuy NAVA [facility] Start: 02-04-2023 End: 02-05-2023 ambulatory SHANIA BHAT Facility: Start: 01-31-2023 End: 02-01-[address] NOE CABALLERO . Facility: Start: 01-21-2023 End: 01-22-2023 ambulatory EDGAR NAVA [...] encounter procedure EDGAR NAVA [facility] Start: 07-01-2022 End: 07-02-2022 ambulatory EDGAR NAVA Facility:[facility] Start: 06-29-[address] NOE [...] same day surgery center David Pacheco Jr[facility] Start: 01-11-2022 End: 01-11-2022 Patient encounter procedure David Pacheco Jr. [facility] Start: 12-25-2021 End: 12-25-2021 Patient encounter procedure David Pacheco Jr. [facility] Start: 01-18-2019 End: 01-19-2019 Patient encounter procedure EFREM [facility] Procedures Date Procedure Procedure Detail Performing Clinician Start: 03-08-2025 Oph bmtry prtl coher intrfrmtry io lens pwr diane Neptali De Dios DO Work Phone: Start: 12-13-2023 Echography of kidney Au mariza [place] Start: 03-11-2023 History of placement of stent for coronary artery disease History of heart artery stent Neptali De Dios DO Work Phone: Start: 07-03-[address] SONIDO CABALLERO . Comment on above: Performed By: #### P T #### [facility] [address] [place] [address] Dr. Curly Connell Start: 01-17-2022 Fluoroscopy guided extracorporeal shockwave lithotripsy of calculus of left ureter David Junior Mccollum Start: 09-20-2021 Cystoscopy David [facility] josé miguel Mcclolum Comment on above: rt. stent removal,ur eteroscopy,retrogade nephroscopy basket retrieval. Start: 07-10-2021 Cystoscopy Davidericka De La Cruz josé miguel Jr. Start: 01-08-2021 Extracorporeal shock wave lithotripsy of calculus of kidney David Pacheco . Start: 11-06-2020 Extracorporeal shock wave lithotripsy of calculus of kidney David Pacheco . Start: 08-09-2019 Cystoscopic removal of ureteric stent David Junior Hollins. Start: 07-22-2019 Cystoscopic insertio n of ureteric [...] CHECKS Fide MATSON Start: 01-18-2019 PLACE INTERMITTENT PNEUMATIC COMPRESSION DEVICE EFREM MATSON Start: 01-18-2019 VITAL [...] ELIZABETH Extraction of cataract Heladio el NILPhong fide Schneider (physical object) David Pacheco JrKenneth fide Schneider evice (physical object) David Pacheco JrKenneth Hemorrhoidectomy David Anson serena HollinsKenneth History of operative procedure on knee David Pacheco JrKenneth History of operative procedure on lumbar spinal structure Jamil DE LUNA Removal of thrombus Jamil DE LUNA Repair of meniscus Jamil ELIZABETH Special back care David valdez JrKenneth Tonsillectomy David bradley Plan of Treatment Date Care Activity Detail Author Start: 03-08-2025 End: 03-08-2025 Patient encounter procedure 03/08/2025 1:45 PM EDT Office Visit [facility] [address] [place] [address] Neptali De Dios, [address] [place] [address] Arrived [facility] Comment on above: Arrived Start: 10-30-2024 Diabetes Screening Diabetes Screenin g [facility] Start: 05-30-2023 Influenza vaccination Influenza Vacc ine (#1) [facility] Start: 2023 RSV Vaccine (1 - 1-d ose 60+ series) RSV Vaccine (1 - 1-dose 60+ series) [facility] Start: 09-29-2022 Depression Assessment Depression Ass essment [facility] Start: 2018 Prostate specific an tigen measurement Prostate Cancer Screening Discussion [facility] Start: 2013 Shingrix Vaccine (1 of 2) Adair grix Vaccine (1 of 2) [facility] Start: 2008 Screening for malign ant neoplasm of colon [facility] Start: 1998 Lipid panel Lipid Screening [facility] Start: 1982 Urine microalbumin profile DTa P,Tdap,Td Vaccine (1 - Tdap) [facility] Start: 1981 Hepatitis C screening Hepatitis C Sc paola [facility] Start: 1981 HIV screening HIV Screening [facility] Start: 1963 Covid-19 Vaccine (#1) Covid-19 Vacci ne (#1) [facility] Immunizations Immunization Date Immunization Notes Care Provider Fa gavi 02-26-2023 tetanus toxoid, reduced diphtheria toxoid, and acellular pertussis vaccine, adsorbed Elsy Samanta [facility] 08-27-2017 influenza, unspecifi ed formulation EDGAR NAVA [facility] 08-27-2017 influenza virus vaccine, unspecified formulation Generic Provider [facility] 06-26-2016 influenza, unspecifi ed formulation EDGAR NAVA [facility] NEGATED: Highlighted row has not occurred!08-29-2023 influenza virus vaccine, unspecified formulation Jamil DE LUNA [facility] Payers Date Payer Category Payer Medicare [id number] 1965 Unknown [id number] 2.16.8 40.1.238968.3.579.2.175 1963 Unknown [id number] 2.16.8 40.1.024340.3.579.2.647 1963 Unknown [id number] 2.16.84 0.1.783006.3.579.2.593 1963 Unknown [id number] 2.16.84 0.1.030086.3.579.2.593 1963 Unknown [id number] 2.16.84 0.1.791701.3.579.2.593 1963 Unknown [id number] 2.16.84 0.1.731800.3.579.2.593 1963 Unknown [id number] 2.16.84 0.1.313074.3.579.2.593 1963 Unknown [id number] 2.16.84 0.1.021236.3.579.2.593 1963 Unknown [id number] 2.16.84 0.1.161931.3.579.2.593 1963 Unknown [id number] 2.16.84 0.1.935550.3.579.2.593 1963 Unknown [id number] 2.16.84 0.1.182289.3.579.2.593 1963 Unknown [id number] 2.16.84 0.1.020581.3.579.2.593 1963 Unknown [id number] 2.16.84 0.1.685317.3.579.2.593 1963 Unknown [id number] 2.16.84 0.1.024087.3.579.2.593 1963 Unknown [id number] 2.16.84 0.1.277685.3.579.2.593 1963 Unknown [id number] 2.16.84 0.1.234562.3.579.2.593 1963 Unknown [id number] 2.16.84 0.1.772731.3.579.2.593 1963 Unknown [id number] 2.16.84 0.1.470083.3.579.2.593 1963 Unknown [id number] 2.16.84 0.1.380351.3.579.2.593 1963 Unknown [id number] 2.16.84 0.1.202866.3.579.2.593 1963 Unknown [id number] 2.16.84 0.1.409495.3.579.2.593 1963 Unknown [id number] 2.16.84 0.1.833601.3.579.2.593 1963 Unknown [id number] 2.16.84 0.1.707597.3.579.2.593 1963 Unknown [id number] 2.16.8 40.1.693669.3.579.2.718 1963 Unknown [id number] 2.16.8 40.1.763181.3.579.2.727 1963 Unknown [id number] 2.16.8 40.1.841933.3.579.2.727 1963 Unknown [id number] 2.16.8 40.1.015451.3.579.2.727 1963 Unknown [id number] 2.16.8 40.1.247568.3.579.2.727 1963 Unknown [id number] 2.16.8 40.1.112029.3.579.2.727 1963 Unknown [id number] 2.16.8 40.1.513461.3.579.2.727 1963 Unknown [id number] 2.16.8 40.1.703206.3.579.2.727 1963 Unknown [id number] 2.16.8 40.1.029025.3.579.2.727 1963 Unknown [id number] 2.16.8 40.1.393193.3.579.2.727 1963 Unknown [id number] 2.16.8 40.1.602511.3.579.2.1259 1959 Medicare [id number] 1959 Unknown [id number] Social History Date Type Detail Facility Start: 08-08-2021 Tobacco smoking status Never smoked tobacco (finding) [facility] Tobacco smoking status Never [facility] Start: 03-11-2023 End: 03-08-2025 Sex Assigned At Male [facility] Start: 03-11-2023 End: 03-12-2023 Tobacco smoking status Ex-smoker (finding) [facility] Start: 10-29-2021 Alcohol intake Current drinke r of alcohol (finding) [facility] Start: 1965 Sex Assigned At Not on file C [facility] History of tobacco use Current smoker [facility] History of tobacco use Cigarette Smoker [facility] Start: 03-11-2023 End: 03-08-2025 History of Social function [facility] Start: 03-10-2023 Gender identity Identifies as male gender (finding) [facility] Medical Equipment Procedure Code Equipment Code Equipment [...] 12-30-2023 Functional Status N/A [facility] 08-29-2023 Functional Status N/A [facility] 03-12-2023 Functional Status N/A [facility] 07-03-2022 Functional Status N/A [facility] Clinical Notes 08-27-2021 to 04-05-2025 Neptali De Dios, - 03/08/2025 1:45 PM EDT Note Date & Type Note Facility 04-05-2025 Note [facility] Consult [facility] Reason for visit: NSVT/ NS AT 04/05/2025 Patient is here today for a follow up EP study. Patient states he is feeling good no cardiac complaints. Patient underwent EP study on 03/04/2025 and that revealed no evidence of inducible VT no other SVT was also induced. Review of Systems Constitutional: Negative. HPI: Doris Luis is a 60 y.o. year old with past medical history of CAD s/p PCI, DVT, diabetes mellitus type 2, hypertension, hyperlipidemia, antiphospholipid syndrome s/p IVC filter was recently discharged from [facility] after he presented with unstable angina. Cardiac [...] VENA CAVA ANGIOPLASTY / STENTING SH: Social Drivers of Health Tobacco Use: Medium Risk (04/05/2025) Patient History Smoking Tobacco Use: Former Smokeless [...] Year: No Utilities: Not At Risk (11/03/2024) [facility] Utilities Threatened with loss of utilities: No Health Literacy: Not on file Allergies: Allergies Allergen Reactions Penicillins Hives Hydrocodone-Acetaminophen Headache and Unknown Other Reaction(s): Migraine Sulfa (Sulfonamide Antibiotics) Hives Weight: 104kg Visit Vitals BP 124/88 (BP Location: Left arm, Patient Position: Sitting) Pulse 80 Ht 1.778 m (5' 10 ) Wt 104 kg (230 lb) SpO2 96% BMI 33.00 kg/m??? Smoking Status Former BSA 2.27 m??? Meds: Current Outpatient Medications on File Prior to Visit Medication Sig Dispense Refill amLODIPine (Norvasc) 5 mg tablet Take 1 tablet (5 mg) by mouth once daily as directed. 90 tablet 3 celecoxib (CeleBREX) 200 mg [...] once daily as directed. 90 tablet 3 tiZANidine (Zanaflex) 4 mg tablet Take 4 mg by mouth if needed at bedtime for muscle spasms. venlafaxine XR (Effexor-XR) 75 mg 24 hr capsule Take 75 mg by mouth in the morning. warfarin (Coumadin) 4 mg tablet TAKE 1 TAB BY MOUTH EVERY OTHER DAY (EXCEPT 5MG ON SUNDAYS) enoxaparin (Lovenox) 30 mg/0.3 mL syringe Inject 30 mg under the skin every 12 (twelve) hours. (Patient not taking: Reported on 04/05/2025) traMADol (Ultram) 50 mg tablet Take 1 tablet by mouth every 6 (six) hours during the day. (Patient not taking: Reported on 04/05/2025) No current facility-administered medications on file prior to visit. ROS: Review of Systems Cardiovascular: Positive for chest pain, dyspnea on exertion and leg swelling. Hematologic/Lymphatic: Bruises/bleeds easily. Musculoskeletal: Positive for back pain and joint pain. Gastrointestinal: Positive for constipation. All other systems reviewed and are negative. Physic (more content not included)... [facility] 03-08-2025 History of Present illness Narrative Images from the original note were not included. Subjective Patient ID: Bethany Luis is a 60 y.o. male. Chief Complaint Blurred Vision; Cataract HPI Blurred Vision In both eyes. Onset was gradual. Vision is blurred and hazy. Severity is moderate. This started months ago. Occurring constantly. It is worse throughout the day. Context: distance vision, mid-range vision and near vision. Associated symptoms include glare, haloes and a need for brighter lights. Treatments tried include glasses. Response to treatment was no improvement. Cataract In both eyes. Associated symptoms include blurred vision, glare, haloes and a need for brighter lights. Severity is moderate. Onset was gradual. Frequency is constant. Affected activities include daily activities. Treatments tried include glasses. Response to treatment was no improvement. Comments Pt presents for Cataract evaluation referred by Dr. Kim . Pt is a Type 2 diabetes mellitus (diabetes mellitus (DM). Last A1C: has not had one this year yet. Blood sugar levels weekly run about 90/120, sees Dr. Caballero for diabetic care. Pt states he is having hazziness/cloudiness, is wearing single vision glasses that are about 2+ years old. No latex allergies No Pacemakers/Defib No flomax ( Yes about 2+yrs ago) Last edited by Neptali De Dios DO on 03/08/2025 2:22 PM. Current Outpatient Medications (Ophthalmic Agents) Medication Sig Dispense Refill ofloxacin (Ocuflox) 0.3 % ophthalmic solution Administer 1 drop into the right eye in the morning and 1 drop at noon and 1 drop in the evening and 1 drop before bedtime. Esqcadennpa-Rqhoodno-Wyvbwzumq 1-0.5-0.075 % solution Administer 1 drop into affected eye(s) in the morning and 1 drop at noon and 1 drop in the evening and 1 drop before bedtime. 10 mL 1 prednisoLONE acetate (Pred-Forte) 1 % ophthalmic suspension Administer 1 drop into the left eye in the morning and 1 drop at noon and 1 drop in the evening and 1 drop before bedtime. 5 mL 1 No current facility-administered medications for this visit. (Ophthalmic Agents) Current Outpatient Medications (Other) Medication Sig Dispense Refill albuterol HFA 90 mcg/act inhaler inhale 2 puffs by mouth every 4 hours if needed for shortness of breath amLODIPine (Norvasc) 5 MG tablet amlodipine 5 mg tablet take 1 tablet by mouth once daily Ascorbic Acid (Vitamin C) 500 MG capsule aspirin 81 MG EC tablet aspirin 81 mg tablet,delayed release take 1 tablet by mouth once daily atorvastatin (Lipitor) 20 MG tablet Take 20 mg by mouth. Calcium Carbonate-Vit D-Min (QC Brdzroh-Aqvtqskxy-Poio-D3) 333.4-133 MG-UNIT tablet celecoxib (CeleBREX) 200 MG capsule celecoxib 200 mg capsule TAKE 1 CAPSULE BY MOUTH TWICE DAILY cholecalciferol (Vitamin D-3) 25 MCG (1000 UT) tablet Take 1,000 Units by mouth in the morning. ciprofloxacin (Cipro) 500 MG tablet Take 500 mg by mouth in the morning and 500 mg before bedtime. docusate sodium (Stool Softener) 100 MG capsule Enoxaparin Sodium (Lovenox) 100 MG/ML solution prefilled syringe Inject under the skin. isosorbide mononitrate ER (Imdur) 30 MG 24 hr tablet Take 30 mg by mouth in the morning. lisinopril 30 MG tablet lisinopril 30 mg tablet take 1 tablet by mouth once daily metFORMIN (Glucophage) 500 MG tablet Take 500 mg by mouth in the morning. Take with meals. metoprolol tartrate (Lopressor) 50 MG tablet metoprolol tartrate 50 mg tablet take 1 tablet by mouth twice a day for 90 DAYS omeprazole (PriLOSEC) [address] capsule omeprazole 20 mg capsule,delayed release TAKE 2 CAPSULES BY MOUTH DAILY rosuvastatin (Crestor) 10 MG tablet Take 10 mg by mouth in the morning. rosuvastatin (Crestor) 40 MG tablet rosuvastatin 40 mg tablet take 1 tablet by mouth once daily SUMAtriptan (Imitrex) 100 MG tablet Take 100 mg by mouth. venlafaxine XR (Effexor XR) 75 MG 24 hr capsule venlafaxine ER 75 mg capsule,extended release 24 hr take 1 capsule by mouth once daily warfarin (Coumadin) 4 MG tablet warfarin 4 mg tablet take 1 tablet by mouth every other day --EXCEPT TAKE 5 MG TABLET ON FRIDAY No current facility-administered medications for this visit. (Other) Past Medical History: Diagnosis Date Clotting disorder ([facility]) Coronary artery disease ([facility]) Diabetes mellitus ([facility]) Myocardial infarction ([facility]) 11/2024 Allergies Allergen Reactions Penicillins Hives and Other Sulfa Antibiotics Hives Hydrocodone-Acetaminophen Hallucinations Other Reaction(s): Migraine Review of Systems Constitutional: Negative. HENT: Negative. Eyes: Negative. Respiratory: Negative. Cardiovascular: Negative. Gastrointestinal: Negative. Genitourinary: Negative. Musculoskeletal: Negative. Skin: Negative. Neurological: Negative. Psychiatric/Behavioral: Negative. Hematological: Negative. Endocrine: Negative. Allergic/Immunologic: Negative. Objective Base Eye Exam Visual Acuity (Snellen - Linear) Right Left Dist cc 20/40 20/30 Correction: Glasses Tonometry (Applanation, 2:24 PM) Right Left Pressure 16 16 Pupils Pupils Right PERRL Left PERRL Visual Archer Left Right Full Full Extraocular Movement Right Left Full, Ortho Full, Ortho Neuro/Psych Oriented x3: Yes Dilation Both eyes: 1.0% Mydriacyl @ 2:12 PM Additional Tests Keratometry K1 Mansfield K2 Mansfield Right 44.25 147 45.00 57 Left 44.50 180 44.50 90 Glare Testing High Right 20/200 Left Slit Lamp and Fundus Exam External Exam Right Left External Rosacea Rosacea Slit Lamp Exam Right Left Lids/Lashes Blepharitis Blepharitis, Dermatochalasis - upper lid Conjunctiva/Sclera White and quiet White and quiet Cornea Decreased tear film Decreased tear film Anterior Chamber Deep and quiet Deep and quiet Iris Round and reactive Round and reactive Lens 2+ Nuclear sclerosis, 2+ Cortical cataract, 1+ Posterior subcapsular cataract Posterior chamber intraocular lens Anterior Vitreous Normal Normal Fundus Exam Right Left Disc Normal Normal Macula Normal Normal Vessels Normal Normal Periphery Normal Normal Refraction Wearing Rx Sphere Cylinder Mansfield Right -1.50 +0.00 180 Left -2.25 -0.50 067 Age: 2+ Type: SVL Manifest Refraction Sphere Cylinder [place] Right -1.50 -0.25 165 Left -2.00 -0.75 079 Final Rx Sphere Cylinder [place] Right -1.50 -0.25 165 Left -2.00 -0.75 080 Expiration Date: 03/08/2026 Assessment/Plan Age-related nuclear cataract of right eye - Visually Significant Cataract, OU: I discussed the risks, benefits, alternatives, and expectations of cataract surgery. A complete ophthalmic exam was performed and it was determined that the cataracts were a primary source of vision decline, affecting activities of daily living, necessitating removal. Limited vision post-surgery may occur with pre-existing conditions affecting other areas of the eye or the brain was explained and the patient displayed an understanding. The overall objective is to improve ADLs, not eliminate glasses or restore vision to 20/20. Tests were reviewed - the different lens options were explained including the vbk-la-lvaptb fees for any upgrades. Intraocular lens (IOL) selection may be altered either prior to or during the procedure based on the doctor's discretion including reverting to a traditional intraocular lens (IOL). They understood that there will exist the potential of glasses prescription need post surgery for near, distance or possibly both. The patient stated a full understanding and a desire to proceed with the procedure. The patient received cataract measurements and had any additional questions answered. - A complete exam was performed including a physical exam: General: AAOx3 and NAD, Lungs: Clear, Heart: RRR, Abdomen: S/NT/ND, Extremities: no pitting edema. - Coordination of care will be shared with Dr. Kim. Cataract Surgery for OD will take place - 04/11. documented in this encounter [facility] 03-03-2025 Note COMPREHENSIVE EP DODIE DY PROCEDURE NOTE DATE OF PROCEDURE: 03/04/2025 PERFORMING PHYSICIAN: Dr. Raulito Montiel ASSISTANT WAREHOUSE MANAGER: None INDICATIONS FOR PROCEDURE: 1. History of NSVT. 2. History of non sustained AT CONSENT: Patient LOCATION: EP Lab PROCEDURAL SEDATION: Versed and Fentanyl. Monitoring: Cardiac telemetry, Blood pressure, continuous pulse oxymetry. Moderate sedation was administered by the sedation nurse under my supervision. Intraprocedural face to face sedation time: 71min. PREPARATION: Preoperative antibiotics was administered. PROCEDURES PERFORMED: 1. Ultrasound guided vascular access for 5Fx1 venous sheaths as documented below in procedure note and image stored in PACS. 2. Comprehensive EP study which includes right atrial recording and pacing, His bundle recording and right ventricular recording and pacing. PROCEDURE NOTE: The risks, benefits and alternatives of the procedure were discussed with the patient and family who agreed to proceed. Please refer to my office consult note for details of the discussion and of indications. Patient was brought to the EP lab in the post absorptive state. A procedural pause was performed verifying the patient, the procedure. The right groin was prepped and draped in the usual sterile fashion. Preoperative antibiotics was administered. Ultrasound was used to image the right femoral veins and it was noted to be patent and this was used for vessel entry as noted below. After infiltration with 1% lidocaine, 2 venous sheath was placed in the right. Details of cathetersplaced as follows. RFV: 5Fx2 RV, His [place] Quad/Theo, CRD2 Heparin 2000U was given. Once catheter was in position, baseline intervals were noted as below. Baseline right ventricular programmed stimulation showed evidence of VA conduction. I performed VEST using 600ms and 400ms drive train. Singles, doubles and triple extra stimuli was introduced with no evidence of any ventricular tachycardia from RV apex as well as mid RV. Then I performed AEST to see I could induce any SVT. No tachycardia could be induced. Catheters were removed and site closed with perclose suture. The patient appeared to tolerate the procedure well and was returned to his room in stable condition. No complications were immediately observed. AHms 95 HVms 41 VERPms 600/220, VA condunction+ AV Wenkebach ms 340 AH jump ms NA AVNERP ms Straight to AERP AERP ms 600/310 EBL: 5cc SPECIMEN REMOVED: None IMPRESSION: 1. EP study with and no inducible VT 2. No inducible tachycardia RECOMMENDATIONS: 1 Follow up with EP as needed. Raulito Montiel MD Cardiac Electrophysiology [facility] 03-03-2025 Note Patient: Doris shaffer Procedure Information Date/Time: 03/03/25 2427 Procedure: Electrophysiology procedure - PC APPROVED VTA Location: [facility] SOCIAL MEDIA DEVELOPER 1 / [facility]ULAR [facility] (Cath) Providers: Raulito Montiel MD Clinical information reviewed: Physical Exam Airway Mallampati: II TM distance: >3 FB Neck ROM: full Cardiovascular Dental Pulmonary Abdominal Anesthesia Plan ASA 3 CSE Anesthetic plan and risks discussed with patient. Use of blood products discussed with patient who. Additional Equipment Requests [facility] 01-18-2025 Note [place] Electrophysiology Consult Note [place] Cardiology [facility] Reason for visit: NSVT/ NS AT HPI: Doris Luis is a 59 y.o. year old with past medical history of CAD s/p PCI, DVT, diabetes mellitus type 2, hypertension, hyperlipidemia, antiphospholipid syndrome s/p IVC filter was recently discharged from [place] after he presented with unstable angina. Cardiac [...] Year: No Utilities: Not At Risk (11/03/2024) [facility] Utilities Threatened with loss of utilities: [...] Veins: normal jugula (more content not included)... [facility] 12-16-2024 Note [facility] Cardiology Clinic Note Chief Complaint: Patient here for follow up [facility]. He was discharged with event monitor. Had [...] disease s/p PCI Syncope and collapse Hyperlipidemia Hcr-wtljswa-rukrrwpuk type 2 diabetes mellitus Antiphospholipid syndrome Primary [...] DM2 presents as a direct admission from [facility] with a chief complaint of chest pain. Patient was seen in the [place] cardiology clinic today for a follow-up. He [...] over the last 4 to 5 months. Single Needle Operator sent patient to the [place] emergency department where he was found to have an elevated troponin so he was sent to [facility] for further evaluation. Cardiology was consulted. Cardiac [...] discharge. Patient is advised close follow-up with toby maker after discharge. Surgical, Invasive or Diagnostic Procedures Done During Admission: Cardiac Cath Consultations During Admission: Cardiology Dear Dr. Iris MD, Doris is advised to follow up with you within 1-2 weeks. Items to follow up in ambulatory setting: Follow-up serial BMPs Follow-up with: Cardiology Scheduled appointments: Future Appointments Date Time Provider Department Center 12/16/2024 1:00 PM Dagoberto Cormier MD [facility] Cardiology ROS: Review of Systems Cardiovascular: Positive for chest pain, dyspnea on exertion and leg swelling. Hematologic/Lymphatic: Bruises/bleeds easily. Musculoskeletal: Positive for back pain and joint pain. Gastrointestinal: Positive for constipation. All other systems reviewed and are negative. Past Medical History He has a past medical history of Coronary artery disease, Deep vein thrombosis (CMS/HCC), Diabet (more content not included)... [facility] 11-05-2024 Note Hospital Medicine Discharge Summary Final Discharge Diagnosis: Unstable angina s/p cardiac cath showing patent stent in LAD, moderate to severe disease of first diagonal branch of LAD, moderate at disease of left circumflex and RCA Coronary artery disease s/p PCI Syncope and collapse Hyperlipidemia Yxy-xaunycs-ffiiusqcj type 2 diabetes mellitus Antiphospholipid syndrome Primary [...] DM2 presents as a direct admission from [facility] with a chief complaint of chest pain. Patient was seen in the [place] cardiology clinic today for a follow-up. He [...] over the last 4 to 5 months. Single Needle Operator sent patient to the [place] emergency department where he was found to have an elevated troponin so he was sent to [facility] for further evaluation. Cardiology was consulted. Cardiac [...] discharge. Patient is advised close follow-up with toby maker after discharge. Surgical, Invasive or Diagnostic Procedures Done During Admission: Cardiac Cath Consultations During Admission: Cardiology Dear Dr. Iris MD, [place] is advised to follow up with you within 1-2 weeks. Items to follow up in ambulatory setting: Follow-up serial BMPs Follow-up with: Cardiology Scheduled appointments: Future Appointments Date Time Provider Department Center 12/16/2024 1:00 PM Dagoberto Cormier MD [facility] Your medication list START taking these [...] Your Medications These medications were sent to [id number] - [place], [place] - [address] [place] [address] aspirin 81 mg chewable tablet metoprolol tartrate [...] GLUCOSE mg/dL 101* (more content not included)... [facility] 11-05-2024 Note Pharmacy Consult for Warfarin (Coumadin) Management - Daily Progress Note Doris Luis is a 59 y.o. male admitted for Unstable angina ([facility]). Pharmacy was consulted warfarin dosing and monitoring for DVT, PE, or APS with goal INR 2-3. Patient has a past medical history of Coronary artery disease, Deep vein thrombosis ([facility]), Diabetes mellitus ([facility]), Hyperlipidemia, and Hypertension. Home Regimen Fri SAT SUN Dose 4 mg 4 mg 4 mg 4 mg 4 mg 4 mg 5 mg Source: [facility] INR Results from last 7 days [...] During Current Admission Date INR Dose (mg) 2 2.45 HELD 2 2.42 HELD 2 2.03 See Plan Assessment and Plan Patient's INR today 2.03 is Therapeutic. Hemoglobin/hematocrit/platelet stable. Give warfarin 4 today. Monitor for s/sx of bleeding including epistaxis, hematuria, unusual bruising, hemoptysis, hematochezia as well as s/sx of stroke including impaired speech, unilateral paralysis, blurry vision. Pharmacy will continue to monitor the patient and adjust therapy as needed. Thanks for the consult. Cliff Bernardo, PharmD, 11/05/24 [facility] 11-05-2024 Note Cardiovascular Labor atory Report FINAL [...] left radial artery was obtained. A 6 Mosotho glide sheath was inserted without difficulty. Resistance [...] circulation shows luminal irregularities. INDICATIONS: Unstable angina [facility] 11-05-2024 Note Cardiology Inpatient Progress Note Subjective [...] testing. He was then transferred to the [facility] for further evaluation and management 11/05/2024: The [...] Hives Objective 12-24 hour telemetry reviewed: SR 's. CURRENT MEDS amLODIPine, 5 mg, oral, Daily [...] 11/05/24 1220 109/79 36.6 ???C (97.9 ???F) [facility] 53 24 93 % -- 11/05/24 0933 124/82 -- -- 62 -- -- -- 11/05/24 0802 140/77 36.4 ???C (97.5 ???F) [facility] 68 (!) 27 93 % -- 11/05/24 0507 110/74 36.6 ???C (97.9 ???F) [facility] 74 17 96 % -- 11/05/24 0400 [...] and S2 presen (more content not included)... [facility] 11-04-2024 Note Hospital Medicine Daily Progress Note - 11/04/2024 11:23 AM; Room: [facility]/3167- Admission: 11/03/2024 10:00 PM; Length of stay: 1 days THE HOSPITALIST TEAM PREFERS TO USE Chef Surfing FOR NON-URGENT COMMUNICATION 7AM-7PM. IF I DO NOT RESPOND WITHIN 20 MINUTES OR URGENT MATTERS, PLEASE CALL THROUGH THE FLIGHT ENGINEER INSPECTOR. FROM 7PM-7AM, PLEASE PAGE [phone](COVR). Code Status: Full Code Barriers to Discharge: [...] Active Inpatient Problems Principal Problem: Unstable angina ([facility]) Active Problems: Mixed hyperlipidemia Type 2 diabetes mellitus without complication, without long-term current use of insulin ([facility]) S/P insertion of IVC (inferior vena caval) filter APS (antiphospholipid syndrome) (CMS/HCC) Primary hypertension History of DVT (deep vein thrombosis) Hx of pulmonary embolus Syncope and collapse Coronary artery disease involving [place] coronary artery of [place] heart without angina pectoris Assessment and Plan Unstable angina ([facility]/HCC) -Patient with an episode of chest pain while making his grandchildren dinner this past Friday which subsided after 10 to 15 minutes -Elevated troponin of 47 at [facility] -CXR completed outside hospital shows no acute [...] event monitor outpatient Coronary artery disease involving [place] coronary artery of [place] heart without angina pectoris s/p PCI Mixed hyperlipidemia -Continue Crestor Type 2 diabetes mellitus without complication, without long-term current use of insulin ([facility]) Glucose checks ACHS Continue sliding scale insulin APS (antiphospholipid syndrome) ([facility]) -Warfarin on hold for cardiac cath, continue [...] ALT U/L 14 (more content not included)... [facility] 11-04-2024 Note Chart reviewed asses sment plan reviewed with nurse practitioner and agreed [facility] 11-04-2024 Note -ISS, ACHS [facility] 11-04-2024 Note -Patient with an epi sode of chest pain while making his grandchildren dinner this past Friday which subsided after 10 to 15 minutes -Was found to have an elevated troponin of 47 at [facility] earlier today and was transferred to [facility] for possible heart cath -Patient reports most recent cardiac testing was around 2 years ago -CXR completed outside hospital shows no acute process -EKG completed at [facility] shows normal sinus rhythm -Repeat troponin at [facility] found to be 0.03, will continue to trend -Will start patient on heparin infusion if need for cardiac cath arises as patient does take warfarin at home [facility] 11-04-2024 Note -Patient reports pos itive orthostatic vitals in his cardiology office earlier today and states that all of his syncopal events have been when he is gone from a sitting to a standing position -Patient may benefit from event monitor outpatient [facility] 11-04-2024 Note -Warfarin on hold se condary to possible procedure, continue heparin infusion [facility] 11-04-2024 Note -Continue metoprolol , lisinopril, amlodipine [facility] 11-04-2024 Note -Warfarin on hold in case of procedure, continue heparin infusion [facility] 11-04-2024 Note -Continue Crestor [facility] 11-04-2024 Note -S/p PCI with stenting [facility] 11-03-2024 Note Hospital Medicine History and Physical 11/03/2024 10:54 PM THE HOSPITALIST TEAM PREFERS TO USE Chef Surfing FOR NON-URGENT COMMUNICATION 7AM-7PM. IF I DO NOT RESPOND WITHIN 20 MINUTES OR URGENT MATTERS, PLEASE CALL THROUGH THE FLIGHT ENGINEER INSPECTOR. FROM 7PM-7AM, PLEASE PAGE [phone](COVR). Chief Complaint Direct admission from [facility] with chief complaint of chest pain History of Present Illness Doris Luis is an 59 y.o. 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 Patient was seen in the [place] cardiology clinic today for a follow-up. He [...] over the last 4 to 5 months. Single Needle Operator sent patient to the [place] emergency department where he was found to have an elevated troponin so he was sent to [facility] for further evaluation. Review of System and [...] and Plan Assessment & Plan Unstable angina ([facility]) -Patient with an episode of chest pain while making his grandchildren dinner this past Friday which subsided after 10 to 15 minutes -Was found to have an elevated troponin of 47 at [facility] earlier today and was transferred to [facility] for possible heart cath -Patient reports most recent cardiac testing was around 2 years ago -CXR completed outside hospital shows no acute process -EKG completed at [facility] shows normal sinus rhythm -Repeat troponin at [facility] found to be 0.03, will continue to [...] event monitor outpatient Coronary artery disease involving [place] coronary artery of [place] heart without angina pectoris -S/p PCI with stenting Mixed hyperlipidemia -Continue Crestor Type 2 diabetes mellitus without complication, without long-term current use of insulin [place] -ISS, ACHS APS (antiphospholipid syndrome) ([facility] -Warfarin on hold in case of procedure, continue heparin infusion Primary hypertension -Continue metoprolol, lisinopril, amlodipine History of DVT (deep vein thrombosis) Hx of pulmonary embolus 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 [facility] 11-03-2024 Note [facility] Cardiology Clinic Note Chief Complaint: Patient [...] values have be (more content not included)... [facility] 08-03-2024 Note Cardiovascular Medic [facility] SUBJECTIVE Chief Complaint Patient presents with [...] Problem List Diagnosis Coronary artery disease involving [place] coronary artery of [place] heart without angina pectoris Benign essential HTN [...] General: Normal ran (more content not included)... [facility] 08-03-2024 Note Patient here for 1 y [...] All other systems reviewed and are negative. [facility] 12-30-2023 Evaluation + Plan note Diagnostic Tests PendingElectrolyte Panel 12/30/23 [facility] 12-30-2023 Hospital Discharge instructions Patient Education 12/30/2023 [...] include: ?8 oz (237 mL) of milk, qhkqyxt-gblzplznsabm-cxgtz milk, and calcium-fortifiedfruit juice. Calcium-fortified means that [...] ?Spinach (cooked), rhubarb, beets, sweet potatoes, and [place]serratian chard. ?Peanuts. ?Potato chips, persian fries, and baked potatoes with skin on. ?Nuts and nut products. ?Chocolate. If you regularly take a diuretic medicine, make sure to eat at least 1 or 2 servings of fruits or vegetables that are high in potassium each day. These include: ?Avocado. ?Banana. ?[place], prune, carrot, or tomato juice. ?Baked potato. [...] magnesium, fish oil, or vitamin B6. Take vrvo-dkv-xmvffvz and prescription medicines only as told by [...] Casseroles. Pizza. Lasagna. Frozen meals. Potato chips. Mosotho fries. The items listed above may not [...] provider. Document Revised: 12/26/2022 Document Reviewed: 12/26/2022 [employer] Patient Education 2022 [employer]. Follow Up Care 02/18/2023 15:25:52 With:XIOMARA England APRN, Elsy Skaggs, JOSE, URL Address: When:Within 1 Year(s) Comments:w/PSA With:EDGAR NAVA PA-C, URL Address: [address] [place] [address] When: Unknown With:XIOMARA England APRN, Elsy Skaggs, JOSE, URL Address: When: Unknown [facility] 08-29-2023 Note Chief Complaint consultation for rectal [...] managed by Dr Caballero. 2. 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 [facility] Comment on above: Result Comment: Elec tronically [...] (08/09/2019), Cystoscopic insertion (more content not included)... [facility] Comment on above: Result Comment: Elec tronically [...] at home: Medicines ? Take or apply mocz-qvq-evffrck and prescription medicines only as told by [...] and water are not available, use hand dog license officer supervisor. ? Change your dressing as told by [...] by your health (more content not included)... [facility] 07-03-2022 Hospital Discharge instructions Patient Education 07/03/2022 13:32:37 Kidney Stones, Eaub-sg-Rstf Kidney Stones Kidney stones are rock-like masses [...] Follow these instructions at home: Medicines Take akor-lnr-efzhdub and prescription medicines only as told by [...] 03/03/2009 Document Revised: 02/01/2020 Document Reviewed: 02/01/2020 [employer] Patient Education 2020 [employer]. 07/03/2022 13:32:36 Calorie Counting for Weight Loss [...] 09/15/2006 Document Revised: 06/04/2019 Document Reviewed: 08/15/2017 [employer] Patient Education 2020 [employer]. Follow Up Care 06/26/2021 10:22:59 With:EDGAR NAVA PA-C, URL Address: [address] [facility] [place] [address] When: Unknown [facility] 07-03-2022 Evaluation + Plan note Diagnostic Tests PendingPSA Total 07/03/22 [facility] 01-17-2022 Evaluation + Plan note Extrac jing from: Title:ANES POSTOP MAC/GEN NOTE Author:Fabián Robertson JR Date:01/17/22 Plan Transfer/ Discharge: Patient can be discharged from PACU when criteria met. Condition good. Extracted from: Title:ANES PREOP GEN ADULT NOTE Author:Fabián Turcios JR, DO Date:01/17/22 Plan [place] [employer] (ASA) physical status classification: Class III. Anesthetic Preoperative Plan Anesthesia: General. . Anesthetic plan, risks, benefits, and alternatives discussed with the patient and/or family. Pt. and/or family present and agree to proceed as planned.. Discussed the importance of abstaining from tobacco products, and offered counseling if desired. Future Appointments Appointment Date:2022 10:45:00 AM Scheduled Provider:David Pacheco Jr., MD Location:[facility] Appointment Type:URO Office Visit [facility]04-21-2022 Hospital Discharge instructions Patient Education 01/17/2022 [...] Up Care 12/31/2021 11:37:23 With:EDGAR NAVA Address: [address] [address] [facility] (1) When:6 weeks Comments:KUB x-ray with next visit. [facility]03-29-2022 Hospital Discharge instructions Patient Education 12/25/2021 [...] urethra. Follow these instructions at home: Take [id number] and prescription medicines only as told by [...] 09/15/2006 Document Revised: 08/10/2019 Document Reviewed: 10/20/2017 [employer] Patient Education 2020 [employer]. Follow Up Care 12/24/2021 14:06:11 With:Junior Mccollum MD, ABIMAEL Fuller Address: When: Unknown Comments:schedule ESWL [facility] 11-29-2021 NoteHNO ID: [id number] Author: Tracey Eagle MD Service: ? Author Type: Physician Type: Progress Notes Filed: 08/27/2021 10:02 AM Note Text: [facility] Patient: Doris Luis Provider Tracey Eagle MD : 1965 Location: [facility] Date of Service: August 27, 2021 [...] LUCACREA, LUCREACL, LWK, LUSUL in the last [id number] hours. 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 Appointment Type:URO Office Visit [facility] evaluation + Plan note Future Appointments Appointment Date:01/17/2022 10:00:00 AM Scheduled Provider: Location:[facility] Appointment Type:Surgery FT Appointment Date:2022 10:45:00 AM Scheduled Provider:David Pacheco Jr., MD Location:[facility] App[facility]ments Appointment Date:08/26/2023 10:00:00 AM Scheduled Provider:EDGAR NAVA PA-C Location:[facility] Appointment Type:URO Office Visit [facility] Evaluation + Plan note Future Appointments Appointment Date:09/30/2023 02:30:00 PM Scheduled Provider:EDGAR NAVA PA-C Location:[facility] Appointment Type:URO Office Visit [facility] Evaluation note* Diagnosis Age-related nuclear cataract of right eye- Primary [facility] Narrative No data available for this section [facility] Hospital Discharge instructions No data available for this section [facility] data available for this section [facility] Summary Purpose Family History No Family History [...] section and content) DATE CREATED AUTHOR 01/21/[address] [facility] DATE CREATED AUTHOR AUTHOR'S ORGANIZ ATION 11/06/2021 [facility] DATE CREATED AUTHOR AUTHOR'S ORGANIZ ATION 04/08/2022 [facility] DATE CREATED AUTHOR AUTHOR'S ORGANIZ ATION 02/08/2023 [facility] DATE CREATED AUTHOR AUTHOR'S ORGANIZ ATION 03/09/2023 [facility] DATE CREATED AUTHOR AUTHOR'S ORGANIZ ATION 02/11/2024 [facility] DATE CREATED AUTHOR AUTHOR'S ORGANIZ ATION 03/10/2025 [facility] EPIC DATE CREATED AUTHOR AUTHOR'S ORGANIZ ATION 04/09/2025 [facility] Patient Care team informatio n (unrecognized section and content) Novelty Maker Relationship Specialty Start Date End Date Noe Caballero MD PCP - General Family Medicine 08/09/15 Noe Caballero MD Referring Family Medicine 08/21/21 Novelty Maker Relationship Specialty Start Date End Date Noe Caballero MD [address] [place] [phone] PCP - General Family Medicine 03/11/23 Novelty Maker Relationship Specialty Start Date End Date Noe Caballero MD [address] [place] [phone] PCP - General [facility] 03/11/23 Novelty Maker Relationship Specialty Start Date End Date Noe Caballero MD [address] [place] [phone] PCP - General Family Medicine 03/11/23 Source Comments (unrecognize d section and content) In the event this informatio n is protected by the Federal Confidentiality of Alcohol and Drug Abuse Patient Records regulations: The Federal rules restrict any use of the information to criminally investigate or prosecute any alcohol or drug abuse patient.[facility] Reason for Visit (unrecogniz ed section and content) Reason Comments Blurred Vision Cataract Reason Onset Date Comments Med Refill 03/15/2025 FOR RECORDS PERTAINING TO PATIENTS WHO ARE [...] BE BASED ON THE PRIMARY CLINICAL RECORDS. [facility] [employer] [facility]. provides no warranty or guarantee of the accuracy or completeness of information in this document.
== END 2025-05-03 17:12 | disposition home or self-care (01) ==
LOC: LAB 05-05 06:46
PROVIDERS: PCP Family Medicine; Visit Provider Family Medicine
DX: R31.9 Hematuria, unspecified (principal)
CPT/HCPCS: 36415; 80053; 81001; 85025; 85610; 85730; 87086

== ENCOUNTER 2025-05-05 15:19 | Outpatient (OUT) | payer OTHER, SELFPAY ==
[2025-05-05 16:11] LABS: INR 1.08; Prothrombin Time 11.4 sec (9.0-11.6)
== END 2025-05-05 15:20 | disposition home or self-care (01) ==
PROVIDERS: PCP Family Medicine; Visit Provider Family Medicine
DX: Z79.01 Long term (current) use of 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 (principal); D68.61 Antiphospholipid syndrome
CPT/HCPCS: 36415; 85610

== ENCOUNTER 2025-05-05 15:41 | Outpatient (OUT) | payer MEDICARE, SELFPAY ==
--- NOTE | 2025-05-05 | MR_ITS ---
The [address] [address] Patient Name: DORIS PARKER MRN: [id number] date: 1965 Sex: M Assigned Patient Location: MRI Current Patient Location: MRI Accession/Order Number: [id number] Exam Date: 05/05/2025 21:32 Report Date: 05/05/2025 21:46 At the request of: NOE CABALLERO MD Procedure: MR lumbar spine wo con MRI lumbar spine performed without contrast Indication: Lumbar pain with radiculopathy, right leg weakness for 4 months COMPARISON: None recent. Report from 2019 examination was available for review. FINDINGS: There are 6 lumbarized vertebral bodies. Transitional anatomy at S1 with lumbarization of S1.. Well-formed disc space at S1-S2. Iliolumbar ligaments noted on axial image 29 and axial image 9 and 10 corresponding to the L5 level. Lumbar vertebral heights maintained. Mild levocurvature. Bone marrow signal is unremarkable. Mild intervertebral space narrowing and small multilevel Schmorl's node deformities T12-S1. Conus medullaris terminates normally at mid L1. Right renal cyst. IVC filter noted T12-L1: Only visualized on sagittal images. No significant disease central canal or neural foramen identified. L1-2: Disc desiccation. No focal protrusion central canal or neural foraminal narrowing identified. L2-3: Minimal facet arthropathy. Central canal or neural foraminal narrowing identified. L3-4: Broad-based disc bulge with facet arthropathy. Mild left greater than right neural foraminal narrowing. Canal is patent. L4-5: Circumferential disc bulge with facet arthropathy. There is a right foraminal zone extrusion which exerts mass effect on the exiting right L4 nerve roots. Correlate with right L4 radiculopathy. Moderate left foraminal narrowing. Cqww-bq-emymisml canal stenosis. L5-S1: Circumferential disc bulge with central to left subarticular zone extrusion and facet arthropathy. The extruded disc extends cranially. This narrows the left subarticular zone. There is moderate to severe right and severe left foraminal narrowing, correlate with left L5 and possible left S1 radiculopathy. S1-S2: Rudimentary disc identified without significant disc protrusion central canal or neural foraminal narrowing identified. MR/MR lumbar spine wo con IMPRESSION: Variant anatomy with 6 lumbar type vertebral bodies and transitional segment at S1 with partial lumbarization. Severe right neural from narrowing due to the foraminal zone extrusion, correlate with right L4 radiculopathy. Moderate severe left neural foraminal and subarticular narrowing L5-S1, correlate with possible left L5 and S1 radiculopathy. Impression dictated by: Barber Damian M.D. 05/05/2025 9:46 PM Dictation Location: [place] [address] Electronically authenticated by: [id number] Y Date: 05/05/2025 21:46
== END 2025-05-05 15:42 | disposition home or self-care (01) ==
LOC: MRI 15:41
PROVIDERS: PCP Family Medicine; Visit Provider Family Medicine
DX: M54.16 Radiculopathy, lumbar region (principal); Z79.01 Long term (current) use of 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; R31.9 Hematuria, unspecified
CPT/HCPCS: 72148; 96372; J1650